=== PATIENT | female | born 1965 | race Caucasian/White ===

== ENCOUNTER 2016-09-07 13:44 | Inpatient (IN) | payer MEDICARE, OTHER ==
[~2016-09-07] VITALS: Ht 142.2 cm; Wt 66.3 kg
[~2016-09-07 13:44] MED LIST: ALBU.5I NEB; ALLO300T2 PO; B-CO1CAP9 PO; BENZ2TAB PO; ESCI20TA PO; FERR1TAB16; GABA100C4 PO; GEOD80CA PO; HYDR-755 PO; LEXA10TA PO; LORA-474 PO; PLAV75TA29 PO; PRIL20CA9 PO; REGL5TAB PO; SENS60TA PO; SYMB160A INH; TRAZ100T4 PO
[2016-09-07 13:45] VITALS: BP 181/70; PULSE 74; RESP 17; TEMP 97.7; O2SAT 95
[2016-09-07 15:00] VITALS: BP 152/79; PULSE 68
--- NOTE | 2016-09-07 15:39 | PD ---
HPI Chief Complaint: General Weakness Time Seen by Provider: 15:39 Travel History International Travel<30 days: No Contact w/Intl Traveler<30days: No Traveled to known affect area: No History of Present Illness HPI 50 year old female with PMH of ESRD on dialysis M W F presents to the ED for evaluation of weakness and falls. The patient states that she has been feeling tired and weak for a few weeks. She also complains of recent falls. She states that she "loses balance" and falls very frequently. She states that she lost her balance today while going to dialysis, landed on her hands and knees. She denies headache, dizziness, fevers, chills chest pain, palpitations abdominal pain, nausea, vomiting , changes in bowel habits, melena, hematochezia, numbness, tingling, weakness, limitations to range of motion of the extremities. Last dialysis was 09/02. She is followed by Dr. Vinson, in [facility]. [facility] Past Medical History Bipolar Disorder: Yes (A/V HALLUCINATION) Anxiety: Yes Depression: Yes Cancer: No Cardiovascular Problems: Yes (heart murmor) COPD: Yes Dialysis: Yes (WEDNESDAYS AND FRIDAYS) Diminished Hearing: No Endocrine: No Immune Disorder: No Kidney Stones: No Musculoskeletal: No Neurologic: No Psychiatric: Yes Reproductive: No Respiratory: Yes (emphysema) Renal Failure: Yes (IS ON DIALYSIS) Menopausal: No : 4 Para: 3 : 1 Past Surgical History Body Medical Devices: A/V SHUNT- LEFT CHEST Section: Yes Gynecologic Surgery: Yes ( X 3 ) Other Surgery: Yes (cyst ovary drained/ AV- SHUNT- LEFT CHEST-) Social History Alcohol Use: No Tobacco Use: Yes Substance Use: Yes (Past hx of crack and marijuana abuse) Allergies-Medications (Allergen,Severity, Reaction): Coded Allergies: No Known Allergies (Unverified , 06/10/16) Reported Meds & Prescriptions Reported Meds & Active Scripts Active Gabapentin 100 Mg Cap 100 Mg PO BID 10 Days Geodon (Ziprasidone) 80 Mg Cap 80 Mg PO BIDPC 10 Days Escitalopram (Escitalopram Oxalate) 20 Mg Tab 20 Mg PO DAILY 10 Days Benztropine (Benztropine Mesylate) 2 Mg Tab 2 Mg PO Q12HR 10 Days Reported Trazodone (Trazodone HCl) 100 Mg Tab 100 Mg PO HS Symbicort Inh (Budesonide/Formoterol Fumarate) 160-4.5 Mcg/Act Aero 2 Puff INH Q12HR Sensipar (Cinacalcet) 60 Mg Tab 60 Mg PO DAILY Reglan (Metoclopramide HCl) 5 Mg Tab 5 Mg PO TIDAC Prilosec (Omeprazole) 20 Mg Cap 20 Mg PO DAILY Plavix (Clopidogrel Bisulfate) 75 Mg Tab 75 Mg PO DAILY Nephrocaps (B-Complex W/ C & Folic Acid) 1 Cap 1 Cap PO DAILY If on dialysis, take after treatment. Lexapro (Escitalopram Oxalate) 10 Mg Tab 10 Mg PO DAILY Geodon (Ziprasidone) 80 Mg Cap 80 Mg PO BID Benztropine (Benztropine Mesylate) 2 Mg Tab 2 Mg PO BID Auryxia (Ferric Citrate) 210 Mg Tab Ativan (Lorazepam) 1 Mg Tab 1 Mg PO Q4H PRN Hydroxyzine HCl 10 Mg Tab 10 Mg PO BID Allopurinol 300 Mg Tab 300 Mg PO DAILY Albuterol Neb (Albuterol Sulfate) 2.5 Mg/0.5 Ml Neb 2.5 Mg NEB QID NEB Note: The Albuterol Sulfate Inhalation Solution is concentrated and must be diluted. Read complete instructions carefully before using. Review of Systems Except as stated in HPI: all other systems reviewed are Neg Physical Exam Narrative GENERAL: Well-nourished, well-developed obese, chronically ill-appearing white female in no acute distress. SKIN: Warm and dry. There is a large ecchymosis over the right shoulder blade, abrasions of bilateral knees and left great toe. HEAD: Normocephalic. EYES: No scleral icterus. No injection or drainage. NECK: Supple, trachea midline. No JVD or lymphadenopathy. CARDIOVASCULAR: Regular rate and rhythm, loud, blowing murmur heard best over the left lower sternal border. RESPIRATORY: Breath sounds clear and equal bilaterally. No accessory muscle use. GASTROINTESTINAL: Abdomen protuberant, soft, nontender. Active bowel sounds. MUSCULOSKELETAL: No cyanosis, or edema. Patient retains full, active, painless ROM of bilateral upper and lower extremities. BACK: Nontender without obvious deformity. No CVA tenderness. Data Data Last Documented VS Vital Signs Date Time Temp Pulse Resp B/P Pulse Ox O2 Delivery O2 Flow Rate FiO2 09/07/16 18:05 69 18 151/96 96 Room Air 09/07/16 13:45 97.7 Orders Complete Blood Count With Diff (09/07/16 15:39) Comprehensive Metabolic Panel (09/07/16 15:39) Prothrombin Time / Inr (Pt) (09/07/16 15:39) Act Partial Throm Time (Ptt) (09/07/16 15:39) Urinalysis - C+S If Indicated (09/07/16 15:39) Blood Glucose (09/07/16 15:39) Ecg Monitoring (09/07/16 15:39) Iv Access Insert/Monitor (09/07/16 15:39) Oximetry (09/07/16 15:39) Sodium Chloride 0.9% Flush (Ns Flush) (09/07/16 15:45) Electrocardiogram (09/07/16 16:05) Ckmb (Isoenzyme) Profile (09/07/16 16:05) Troponin I (09/07/16 16:05) Chest, Single Ap (09/07/16 16:05) Place In Observation (09/07/16 ) Diet Renal (09/07/16 Dinner) Admit Order (Ed Use Only) (09/07/16 18:07) Activity Oob Ad Tabatha (09/07/16 18:07) Vital Signs (Adult) MOOK.Q4H (09/07/16 18:07) Labs Laboratory Tests Test 09/07/16 16:05 White Blood Count 5.9 TH/MM3 Red Blood Count 4.45 MIL/MM3 Hemoglobin 12.7 GM/DL Hematocrit 38.7 % Mean Corpuscular Volume 87.1 FL Mean Corpuscular Hemoglobin 28.6 PG Mean Corpuscular Hemoglobin 32.9 % Concent Red Cell Distribution Width 16.8 % Platelet Count 153 TH/MM3 Mean Platelet Volume 8.5 FL Neutrophils (%) (Auto) 77.4 % Lymphocytes (%) (Auto) 14.1 % Monocytes (%) (Auto) 7.1 % Eosinophils (%) (Auto) 0.9 % Basophils (%) (Auto) 0.5 % Neutrophils # (Auto) 4.5 TH/MM3 Lymphocytes # (Auto) 0.8 TH/MM3 Monocytes # (Auto) 0.4 TH/MM3 Eosinophils # (Auto) 0.1 TH/MM3 Basophils # (Auto) 0.0 TH/MM3 CBC Comment DIFF FINAL Differential Comment Prothrombin Time 11.4 SEC Prothromb Time International 1.0 RATIO Ratio Activated Partial 25.7 SEC Thromboplast Time Sodium Level 127 MEQ/L Potassium Level 4.8 MEQ/L Chloride Level 88 MEQ/L Carbon Dioxide Level 26.2 MEQ/L Anion Gap 13 MEQ/L Blood Urea Nitrogen 33 MG/DL Creatinine 7.04 MG/DL Estimat Glomerular Filtration 6 ML/MIN Rate Random Glucose 86 MG/DL Calcium Level 10.0 MG/DL Total Bilirubin 0.6 MG/DL Aspartate Amino Transf 23 U/L (AST/SGOT) Alanine Aminotransferase 11 U/L (ALT/SGPT) Alkaline Phosphatase 126 U/L Total Creatine Kinase 57 U/L Troponin I LESS THAN 0.02 NG/ML Total Protein 6.8 GM/DL Albumin 3.3 GM/DL [facility] Medical Decision Making Medical Screen Exam Complete: Yes Emergency Medical Condition: Yes Differential Diagnosis Uremia versus electrolyte abnormality versus deconditioning versus anemia versus ACS versus other Narrative Course 50 year old female with PMH of ESRD on dialysis M W F presents to the ED for evaluation of weakness and falls. The patient states that she has been feeling tired and weak for a few weeks. She also complains of recent falls. She states that she "loses balance" and falls very frequently. She states that she lost her balance today while going to dialysis, landed on her hands and knees. She denies headache, dizziness, fevers, chills chest pain, palpitations abdominal pain, nausea, vomiting , changes in bowel habits, melena, hematochezia, numbness, tingling, weakness, limitations to range of motion of the extremities. Last dialysis was 09/02. She is followed by Dr. Vinson, in [place]. Vitals reviewed. Physical exam reveals a chronically ill-appearing white female in no acute distress. There is large ecchymosis of the right shoulder blade, abrasions of bilateral knees and left great toe. The toenails are exceptionally long. There is a harsh, blowing murmur heard best over the left lower sternal border. The breath sounds are clear and equal bilaterally. The abdomen is soft and protuberant. The patient retains full, active, painless SARAH bilateral upper and lower extremities. Remaining physical exam is unremarkable. CBC: Unremarkable CMP: Sodium 127, chloride 88. BUN 33, creatinine 7.04. INR: 1.0 Cardiac enzymes: Negative. Chest x-ray: Compensated cardiomegaly, minimal blunting of the right and left costophrenic angles. I spoke with Dr. Vinson regarding rescheduling this patient's dialysis. Unfortunately, the dialysis center in [facility] is only open Wednesday, Wednesday , Wednesday. This patient is now gone 5 days without dialysis and it would be an additional 2 if she were discharged. requests that we admit the patient for uremia and consult nephrology for inpatient dialysis treatment. I'll also order a physical therapy evaluation for the patient's chronic falls. I spoke with Dr. Rasheed who agrees to accept this patient to the medical service. Please see medicine and nephrology notes for disposition. Diagnosis Primary Impression: Uremia Additional Impression: Fall Qualified Code: W19.XXXA - Fall, initial encounter Madison Saldana Sep 07, 2016 15:39
[2016-09-07] MEDS ORDERED: SODIUM CHLORIDE 0.9% FLUSH 5 ML FLUSH IVF PRN (15:45)
[2016-09-07 16:20] LABS: AUTOMATED NEUTROPHIL # 4.5 TH/MM3 (1.8-7.7); BASOPHIL % 0.5 % (0.0-2.0); EOSINOPHIL # 0.1 TH/MM3 (0-0.4); EOSINOPHIL % 0.9 % (0.0-4.0); HEMATOCRIT 38.7 % (35.0-46.0); HEMO FLAGS DIFF FINAL; LYMPH % 14.1 % (9.0-44.0); LYMPHOCYTE # 0.8 TH/MM3 (1.0-4.8); MEAN CELL VOLUME 87.1 FL (80.0-100.0); MEAN CORPUSCULAR HEMOGLOBIN 28.6 PG (27.0-34.0); MEAN CORPUSCULAR HGB CONC 32.9 % (32.0-36.0); MONO % 7.1 % (0.0-8.0); NEUT % 77.4 % (16.0-70.0); PLATELET COUNT 153 TH/MM3 (150-450); RED BLOOD COUNT 4.45 MIL/MM3 (4.00-5.30); RED CELL DISTRIBUTION WIDTH 16.8 % (11.6-17.2); WHITE BLOOD COUNT 5.9 TH/MM3 (4.0-11.0)
[2016-09-07 16:31] LABS: APTT (PATIENT) 25.7 SEC (24.3-30.1); PROTHROMBIN TIME - PATIENT 11.4 SEC (9.8-11.6)
--- NOTE | 2016-09-07 16:39 | RADRPT ---
EXAM DATE/TIME: 09/07/2016 16:16 [place] COMPARISON: CHEST SINGLE AP, June 12, 2016, 8:02. INDICATIONS : Cough. Short of breath. MEDICAL HISTORY : None. SURGICAL HISTORY : Cardiac cath. ENCOUNTER: Subsequent ACUITY: 3 days PAIN SCORE: 0/10 LOCATION: Bilateral chest FINDINGS: The heart is enlarged. Pulmonary vascularity is normal. There is minimal blunting of right and left costophrenic sulci similar to what was seen on 06/30/2016. There is no pneumothorax. CONCLUSION: 1. Compensated cardiomegaly. 2. Minimal blunting of right and left costophrenic sulci. Clinton Parmar MD FACR on September 07, 2016 at 16:19 Board Certified Radiologist. This report was verified electronically.
[2016-09-07 16:45] LABS: ALKALINE PHOSPHATASE 126 U/L (45-117); TOTAL BILIRUBIN ADULT 0.6 MG/DL (0.2-1.0)
[2016-09-07 16:46] LABS: ALT (GPT) 11 U/L (10-53); ANION GAP 13 MEQ/L (5-15); AST (GOT) 23 U/L (15-37); BICARBONATE 26.2 MEQ/L (21.0-32.0); BLOOD UREA NITROGEN 33 MG/DL (7-18); CHLORIDE 88 MEQ/L (98-107); CREATINE KINASE 57 U/L (26-192); GLOMERULAR FILTRATION RATE 6 ML/MIN (>89); POTASSIUM 4.8 MEQ/L (3.5-5.1); SODIUM (NA) 127 MEQ/L (136-145)
[2016-09-07 17:01] VITALS: BP 167/97; PULSE 69; RESP 18
[2016-09-07 18:05] VITALS: BP 151/96; PULSE 69; RESP 18; O2SAT 96
[2016-09-07 18:39] LABS: BACTERIA, URINE RARE /hpf; BLOOD, URINE NEG (NEG); GLUCOSE,URINE TRACE mg/dL (NEG); KETONE, URINE NEG (NEG); NITRITE,URINE NEG (NEG); PH, URINE 7.5 (5.0-8.5); SQUAMOUS EPITHELIAL CELL URINE 2 /hpf (0-5); URINE COLOR LIGHT-YELLOW (YELLW/STRAW)
[2016-09-07 18:40] LABS: COMMENT (UR) CATH-CULTURE IND; CULTURE IF INDICATED CATH CULTURE IND
[2016-09-07 20:02] VITALS: BP 189/64; PULSE 69; RESP 16; TEMP 97.9; O2SAT 89
[2016-09-07] MEDS ORDERED: SENNOSIDES 8.6 MG TAB PO PRN (20:30)
[2016-09-07] MEDS ORDERED: ONDANSETRON HCL 4 MG/2 ML VIAL IVP PRN (20:30)
[2016-09-07] MEDS ORDERED: BISACODYL 10 MG SUPP PR PRN (20:30)
[2016-09-07] MEDS ORDERED: MORPHINE SULFATE 4 MG/ML INJ IV PRN (20:30)
[2016-09-07] MEDS ORDERED: ACETAMINOPHEN 325 MG TAB PO PRN ×2 (20:30)
[2016-09-07] MEDS ORDERED: NALOXONE HCL 0.4 MG/ML AMP IV PRN (20:30)
[2016-09-07] MEDS ORDERED: traZODone HCL 100 MG TAB PO SCH (21:00)
[2016-09-07] MEDS: BUDESONIDE-FORMOTEROL 160/4.5 MCG INHALER INH SCH (21:20)
[2016-09-07] MEDS: hydrOXYzine HCL 10 MG TAB PO SCH (21:21)
[2016-09-07] MEDS: ZIPRASIDONE HCL 80 MG CAP PO SCH (21:21)
[2016-09-07] MEDS: DOCUSATE SODIUM 100 MG CAP PO SCH (21:21)
[2016-09-07] MEDS: BENZTROPINE MESYLATE 2 MG TAB PO SCH (21:21)
[2016-09-07] MEDS: ACETAMINOPHEN/HYDROcodone 325 MG/7.5 MG TAB PO PRN (21:22)
--- NOTE | 2016-09-07 22:23 | HHI.HP ---
[facility] Service [facility] Primary Care Physician Non-Staff Admission Diagnosis uremia Diagnoses: Chief Complaint: weakness, shaking Travel History International Travel<30 Days: No Contact w/Intl Traveler <30 Da: No Traveled to Known Affected Are: No History of Present Illness 50 y/o female with a history of ESRD on hemodialysis,emphysema, Bipolar, and COPD who is having lethargy but is able to answer questions presented to the ED with complaints of weakness, and a fall after having hand tremors. Patient states her hand were shaking for about a min and she lost her balance and fell. She states for the past year she has been falling and having balance issues. She denies any LOC or trauma to her head. She does get dialysis MWF, but states she missed it on Wednesday because she did not have transportation. She denies any fever, chills, chest pain or sob. Patient does have a congested cough that she says has been the same for the last 6 months. Chest xray was unremarkable. 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 Vinson requested admission to medical service for uremia Review of Systems Constitutional: DENIES: Fever, Chills Respiratory: COMPLAINS OF: Cough, DENIES: Sputum production, Shortness of breath Cardiovascular: DENIES: Chest pain, Palpitations Gastrointestinal: DENIES: Constipation, Diarrhea, Nausea, Vomiting Genitourinary: DENIES: Hematuria Musculoskeletal: DENIES: Back pain, Neck pain Integumentary: DENIES: Rash Hematologic/lymphatic: DENIES: Lymphadenopathy Immunologic/allergic: DENIES: Urticaria Neurologic: COMPLAINS OF: Localized weakness, Tremor, Poor Balance, DENIES: Headache Past Family Social History Past Medical History Heart murmer ESRD Bipolar Past Surgical History AV fistula left chest Ovarian cyst drained x3 stent to R groin area Reported Medications Reported Meds & Active Scripts Active Gabapentin 100 Mg Cap 100 Mg PO BID 10 Days Geodon (Ziprasidone) 80 Mg Cap 80 Mg PO BIDPC 10 Days Escitalopram (Escitalopram Oxalate) 20 Mg Tab 20 Mg PO DAILY 10 Days Benztropine (Benztropine Mesylate) 2 Mg Tab 2 Mg PO Q12HR 10 Days Reported Trazodone (Trazodone HCl) 100 Mg Tab 100 Mg PO HS Symbicort Inh (Budesonide/Formoterol Fumarate) 160-4.5 Mcg/Act Aero 2 Puff INH Q12HR Sensipar (Cinacalcet) 60 Mg Tab 60 Mg PO DAILY Reglan (Metoclopramide HCl) 5 Mg Tab 5 Mg PO TIDAC Prilosec (Omeprazole) 20 Mg Cap 20 Mg PO DAILY Plavix (Clopidogrel Bisulfate) 75 Mg Tab 75 Mg PO DAILY Nephrocaps (B-Complex W/ C & Folic Acid) 1 Cap 1 Cap PO DAILY If on dialysis, take after treatment. Lexapro (Escitalopram Oxalate) 10 Mg Tab 10 Mg PO DAILY Geodon (Ziprasidone) 80 Mg Cap 80 Mg PO BID Benztropine (Benztropine Mesylate) 2 Mg Tab 2 Mg PO BID Auryxia (Ferric Citrate) 210 Mg Tab Ativan (Lorazepam) 1 Mg Tab 1 Mg PO Q4H PRN Hydroxyzine HCl 10 Mg Tab 10 Mg PO BID Allopurinol 300 Mg Tab 300 Mg PO DAILY Albuterol Neb (Albuterol Sulfate) 2.5 Mg/0.5 Ml Neb 2.5 Mg NEB QID NEB Note: The Albuterol Sulfate Inhalation Solution is concentrated and must be diluted. Read complete instructions carefully before using. Allergies: Coded Allergies: No Known Allergies (Unverified , 06/10/16) Active Ordered Medications Current Medications Medications (Trade) Dose Ordered Sig/Lora Route Start Time Stop Time Status Last Admin (NS Flush) 2 ml UNSCH PRN IVF 09/07/16 15:45 (Tylenol) 650 mg Q4H PRN PO 09/07/16 20:30 (Zofran Inj) 4 mg Q6H PRN IVP 09/07/16 20:30 (Dulcolax Supp) 10 mg DAILY PRN SD 09/07/16 20:30 (Colace) 100 mg Q12H PO 09/07/16 21:00 09/07/16 21:21 (Senokot) 17.2 mg Q12H PRN PO 09/07/16 20:30 (Tylenol) 650 mg Q6H PRN PO 09/07/16 20:30 (Clinton 5-325 Mg) 1 tab Q4H PRN PO 09/07/16 20:30 (Clinton 7.5-325 Mg) 1 tab Q4H PRN PO 09/07/16 20:30 09/07/16 21:22 (Morphine Inj) 1 mg Q3H PRN IV 09/07/16 20:30 (Narcan Inj) 0.4 mg UNSCH PRN IV 09/07/16 20:30 (Nephrocaps) 1 cap DAILY PO 09/08/16 09:00 (Cogentin) 2 mg Q12HR PO 09/07/16 21:00 09/07/16 21:21 (Symbicort 160-4.5 Inh) 2 puff Q12HR INH 09/07/16 21:00 09/07/16 21:20 (Sensipar) 60 mg DAILY PO 09/08/16 09:00 (Plavix) 75 mg DAILY PO 09/08/16 09:00 (Lexapro) 10 mg DAILY PO 09/08/16 09:00 (Neurontin) 100 mg DAILY PO 09/08/16 09:00 (Atarax) 10 mg BID PO 09/07/16 21:00 09/07/16 21:21 (Ativan) 1 mg Q4H PRN PO 09/07/16 20:30 (Reglan) 5 mg TIDAC PO 09/08/16 08:00 (Protonix) 20 mg DAILY PO 09/08/16 09:00 (Desyrel) 100 mg HS PO 09/07/16 21:00 09/07/16 21:21 (Geodon) 80 mg BID PO 09/07/16 21:00 09/07/16 21:21 (Zyloprim) 100 mg DAILY PO 09/08/16 09:00 (Apresoline Inj) 10 mg Q6H PRN IV 09/07/16 22:30 (Catapres) 0.1 mg Q6H PRN PO 09/07/16 22:30 Family History Mother of old age Father is alive and has emphysema Social History Tobacco use: 1/2 ppd Alcohol use: denies Illcit drug use: quit 6 years ago Physical Exam Vital Signs Vital Signs Date Time Temp Pulse Resp B/P Pulse Ox O2 Delivery O2 Flow Rate FiO2 09/07/16 20:02 97.9 69 16 189/64 89 09/07/16 18:05 69 18 151/96 96 Room Air 09/07/16 17:01 69 18 167/97 09/07/16 15:00 68 152/79 09/07/16 14:00 Room Air 09/07/16 13:45 97.7 74 17 181/70 95 Physical Exam GENERAL: This is a well-nourished, well-developed patient, in no apparent distress. SKIN: No rashes, ecchymoses or lesions. Cool and dry. Abrasion to right knee, left great toe swollen with dried blood from trauma. HEAD: Atraumatic. Normocephalic. No temporal or scalp tenderness. EYES: Pupils equal round and reactive. Extraocular motions intact. No scleral icterus. No injection or drainage. ENT: Nose without bleeding, purulent drainage or septal hematoma. Throat without erythema, tonsillar hypertrophy or exudate. Uvula midline. Airway patent. NECK: Trachea midline. No JVD or lymphadenopathy. Supple, nontender, no meningeal signs. CARDIOVASCULAR: Regular rate and rhythm with a systolic murmer best heard at the LUSB murmurs, gallops, or rubs. AV shunt to left chest. +thrill RESPIRATORY: Clear to auscultation. Breath sounds equal bilaterally. No wheezes , rales, or rhonchi. GASTROINTESTINAL: Abdomen soft, non-tender, nondistended. No guarding. MUSCULOSKELETAL: Extremities without clubbing, cyanosis, or edema. No joint tenderness, effusion, or edema noted. No calf tenderness. Negative Homans sign bilaterally. NEUROLOGICAL: Lethargic but easily arousable answering questions appropriately. Motor and sensory grossly within normal limits. Normal speech. Laboratory Laboratory Tests Test 09/07/16 09/07/16 16:05 18:23 White Blood Count 5.9 Red Blood Count 4.45 Hemoglobin 12.7 Hematocrit 38.7 Mean Corpuscular Volume 87.1 Mean Corpuscular Hemoglobin 28.6 Mean Corpuscular Hemoglobin 32.9 Concent Red Cell Distribution Width 16.8 Platelet Count 153 Mean Platelet Volume 8.5 Neutrophils (%) (Auto) 77.4 Lymphocytes (%) (Auto) 14.1 Monocytes (%) (Auto) 7.1 Eosinophils (%) (Auto) 0.9 Basophils (%) (Auto) 0.5 Neutrophils # (Auto) 4.5 Lymphocytes # (Auto) 0.8 Monocytes # (Auto) 0.4 Eosinophils # (Auto) 0.1 Basophils # (Auto) 0.0 CBC Comment DIFF FINAL Differential Comment Prothrombin Time 11.4 Prothromb Time International 1.0 Ratio Activated Partial 25.7 Thromboplast Time Sodium Level 127 Potassium Level 4.8 Chloride Level 88 Carbon Dioxide Level 26.2 Anion Gap 13 Blood Urea Nitrogen 33 Creatinine 7.04 Estimat Glomerular Filtration 6 Rate Random Glucose 86 Calcium Level 10.0 Total Bilirubin 0.6 Aspartate Amino Transf 23 (AST/SGOT) Alanine Aminotransferase 11 (ALT/SGPT) Alkaline Phosphatase 126 Total Creatine Kinase 57 Troponin I LESS THAN 0.02 Total Protein 6.8 Albumin 3.3 Urine Color LIGHT-YELLOW Urine Turbidity CLEAR Urine pH 7.5 Urine Specific [place] 1.005 Urine Protein 300 Urine Glucose (UA) TRACE Urine Ketones NEG Urine Occult Blood NEG Urine Nitrite NEG Urine Bilirubin NEG Urine Urobilinogen LESS THAN 2.0 Urine Leukocyte Esterase NEG Urine WBC LESS THAN 1 Urine Squamous Epithelial 2 Cells Urine Bacteria RARE Microscopic Urinalysis Comment CATH-CULTURE IND Date/Time Procedure Status Source Growth 09/07/16 18:23 Urine Culture Received Urine Catheterized Urine Pending Result Diagram: 09/07/16 1605 09/07/16 1605 Imaging Chest x-ray image interpreted by me with no acute cardio pulmonary disease Last Impressions Chest X-Ray 09/07/16 1605 Signed Impressions: Service Date/Time: Wednesday, September 07, 2016 16:16 - CONCLUSION: 1. Compensated cardiomegaly. 2. Minimal blunting of right and left costophrenic sulci. Clinton Parmar MD FACR Assessment and Plan Problem List: (1) ESRD (end stage renal disease) ICD Code: N18.6 Status: Chronic (2) Uremia ICD Code: N19 Status: Acute (3) Tremor of both hands ICD Code: R25.1 Status: Acute (4) Cough ICD Code: R05 Status: Acute (5) Bipolar 1 disorder, depressed ICD Code: F31.9 Status: Chronic Assessment and Plan 50 y/o female with a history of ESRD, Bipolar, and COPD presented with: Uremia/ESRD secondary to missed hemodialysis Labs: Protein on UA 300, Creatine 7.04 -Urine culture pending -Consult Nephrology -Renal diet -Counseled Tremors likely secondary to uremia -Head CT ordered, will consult neurology if needed -EKG ordered -TSH ordered -PT eval and treat -IV morphine for pain management -Monitor tele Cough/COPD -Duonebs QID Bipolar, chronic: continue home medications PVD, Chronic: cont Plavix DVT prophylaxis: Heparin Written by Gerri DOWNS, acting as scribe for Dr. Chao on 09/07/16 at 2215. The documentation accurately reflects the work performed [id number] and decisions made by me and the physician Dr Chao on 2214. The documentation accurately reflects the work performed [id number] by me on at 00:28. Code Status Full Discussed Condition With Patient and RN Gerri Coley Sep 07, 2016 22:22 Cuong Chao MD Sep 08, 2016 00:28
[2016-09-07] MEDS ORDERED: cloNIDine HCL 0.1 MG TAB PO PRN (22:30)
[2016-09-07 23:01] VITALS: PULSE 69
[2016-09-07] MEDS: HEPARIN SODIUM - SQ 10,000 UNITS/ML VIAL SQ SCH (23:30)
[2016-09-08] VITALS (11 sets, daily range): BP systolic 139–177; BP diastolic 55–84; PULSE 66–87; RESP 16–24; TEMP 97.7–98.9; O2SAT 94–100
[2016-09-08] MEDS: RESP: ALBUTEROL 2.5 MG/3 ML NEB (SCH) INH ×4 (07:30→19:36)
[2016-09-08] MEDS: METOCLOPRAMIDE HCL 10 MG TAB PO SCH ×3 (08:00→13:40)
--- NOTE | 2016-09-08 08:04 | HHI.PR ---
Subjective Remarks Follow-up for weakness. The patient states that she's been having falls and weakness. She does not use any cane or walker at home. She states she does have help at home. She has COPD on home oxygen. Chronic smoker's cough, still smoking. Objective Vitals Vital Signs Date Time Temp Pulse Resp B/P Pulse Ox O2 Delivery O2 Flow Rate FiO2 09/08/16 07:33 98 Nasal Cannula 4.00 09/08/16 03:54 98.9 87 18 139/59 95 09/08/16 00:00 98.1 87 18 167/84 98 09/07/16 23:01 69 09/07/16 22:34 16 09/07/16 20:02 97.9 69 16 189/64 89 09/07/16 18:05 69 18 151/96 96 Room Air 09/07/16 17:01 69 18 167/97 09/07/16 15:00 68 152/79 09/07/16 14:00 Room Air 09/07/16 13:45 97.7 74 17 181/70 95 Result Diagram: 09/07/16 1605 09/07/16 1605 Imaging Last Impressions Chest X-Ray 09/07/16 1605 Signed Impressions: Service Date/Time: Wednesday, September 07, 2016 16:16 - CONCLUSION: 1. Compensated cardiomegaly. 2. Minimal blunting of right and left costophrenic sulci. Clinton Parmar MD FACR Objective Remarks GENERAL: Well-developed well-nourished. In no acute distress. SKIN: Warm and dry. Left chest AVF. HEENT: Normocephalic. Pupils equal and round. Mucous membranes pink and moist. CARDIOVASCULAR: Regular rate and rhythm. Left chest murmur/bruit appreciated. RESPIRATORY: No accessory muscle use. Clear to auscultation. Breath sounds equal bilaterally. GASTROINTESTINAL: Abdomen soft, non-tender, nondistended. Bowel sounds x4. MUSCULOSKELETAL: No obvious deformities. No clubbing or cyanosis. Trace lower extremity edema. NEUROLOGICAL: Awake and alert. No focal neurological deficits. Moves upper and lower extremities spontaneously. Hoarse speech. PSYCHIATRIC: Appropriate mood and affect; insight and judgment normal. A/P Problem List: (1) ESRD (end stage renal disease) ICD Code: N18.6 Status: Chronic (2) Uremia ICD Code: N19 Status: Acute (3) Tremor of both hands ICD Code: R25.1 Status: Acute (4) Cough ICD Code: R05 Status: Chronic (5) Bipolar 1 disorder, depressed ICD Code: F31.9 Status: Chronic Assessment and Plan 50 y/o female with a history of ESRD, Bipolar, and COPD presented with: Uremia/ESRD secondary to missed hemodialysis Labs: Protein on UA 300, Creatine 7.04 -Consulted Nephrology to resume HD -Renal diet -Continue home phosphate binders Weakness, falls Tremors, mild, possible secondary to uremia -Head CT ordered, will consult neurology if needed -EKG ordered -TSH mildly elevated, outpatient thyroid function testing and PCP follow-up -PT eval and treat -Monitor tele -fall precaution Chronic respiratory failure on home O2 from emphysema/COPD: With chronic cough, unchanged. Chest x-ray shows compensated cardiomegaly with minimal blunting of left and right costophrenic sulci - likely mild volume overload from missed dialysis as above -02 and Duonebs QID -Continue home Symbicort -Counseled on tobacco abuse and cessation Accelerated hypertension: On no BP meds at home. Better controlled overnight. Worsened by missed dialysis. And hydralazine as needed. Bipolar, chronic: continue home trazodone, Geodon, hydroxyzine, Ativan when necessary, Lexapro PVD, Chronic: cont Plavix DVT prophylaxis: Heparin Addendum 1330: Patient was noted to be somnolent after receiving Geodon, [place], and Atarax this morning. Vitals stable. Hold sedating medications. Confirm home medications. Check ammonia and repeat labs. Discharge Planning Needs inpatient dialysis today. Follow-up PT recommendations. Attending Statement The exam, history, and the medical decision-making described in the above note were completed with the assistance of the mid-level provider. I reviewed and agree with the findings presented. I attest that I had a [id number] encounter with the patient on the same day, and personally performed and documented my assessment and findings in the medical record. Jayson Salazar Sep 08, 2016 08:04 Kayden Lamas MD Sep 14, 2016 00:27
[2016-09-08] MEDS ORDERED: CLOPIDOGREL 75 MG TAB PO SCH (09:00)
[2016-09-08] MEDS ORDERED: ALLOPURINOL 300 MG TAB PO SCH (09:00)
[2016-09-08] MEDS: hydrOXYzine HCL 10 MG TAB PO SCH (09:56)
[2016-09-08] MEDS: CINACALCET HYDROCHLORIDE 30 MG TAB PO SCH (09:56)
[2016-09-08] MEDS: ALLOPURINOL 100 MG TAB PO SCH (09:57)
[2016-09-08] MEDS: BENZTROPINE MESYLATE 2 MG TAB PO SCH (09:57)
[2016-09-08] MEDS: GABAPENTIN 100 MG CAP PO SCH (09:57)
[2016-09-08] MEDS: ESCITALOPRAM OXALATE 10 MG TAB PO SCH (09:57)
[2016-09-08] MEDS: DOCUSATE SODIUM 100 MG CAP PO SCH ×2 (09:57→21:00)
[2016-09-08] MEDS: BUDESONIDE-FORMOTEROL 160/4.5 MCG INHALER INH SCH (09:57)
[2016-09-08] MEDS: HEPARIN SODIUM - SQ 10,000 UNITS/ML VIAL SQ SCH (09:57)
[2016-09-08] MEDS ORDERED: SODIUM CHLOR 0.9% 1000 ML INJ 1,000 ML IV PRN (10:06)
[2016-09-08] MEDS: ZIPRASIDONE HCL 80 MG CAP PO SCH (10:07)
[2016-09-08] MEDS: PANTOPRAZOLE SOD 20 MG DELAYED RELEASE TAB PO SCH (10:07)
[2016-09-08] MEDS: VITAMIN B CMPLX/VITC/FOLIC AC CAP PO SCH (10:07)
[2016-09-08] MEDS ORDERED: diphenhydrAMINE HCL 25 MG CAP PO PRN (10:15)
[2016-09-08] MEDS ORDERED: MANNITOL 12.5 GM/50 ML VIAL IV PRN (10:15)
[2016-09-08] MEDS ORDERED: cloNIDine HCL 0.1 MG TAB PO PRN (10:15)
[2016-09-08] MEDS ORDERED: HEPARIN SODIUM - IV 10,000 UNITS/10 ML VIAL PRN (10:15)
[2016-09-08] MEDS ORDERED: ACETAMINOPHEN 325 MG TAB PO PRN (10:15)
[2016-09-08] MEDS ORDERED: NITROGLYCERIN 0.4 MG SL 25 TABS/BTL SL PRN (10:15)
[2016-09-08] MEDS ORDERED: HEPARIN SODIUM - IV 10,000 UNITS/10 ML VIAL IVF PRN ×2 (10:15→17:30)
[2016-09-08] MEDS ORDERED: SODIUM CHLORIDE 0.9% FLUSH 5 ML FLUSH IVF PRN ×2 (10:15→17:30)
[2016-09-08] MEDS ORDERED: GENTAMICIN SULFATE (DIALYSIS USE ONLY) 20 MG/2 ML VIAL IV PRN (10:15)
[2016-09-08] MEDS ORDERED: ONDANSETRON HCL 4 MG/2 ML VIAL IV PRN (10:15)
[2016-09-08] MEDS: ACETAMINOPHEN/HYDROcodone 325 MG/7.5 MG TAB PO PRN (11:15)
--- NOTE | 2016-09-08 11:57 | PD.CONS ---
HPI Service Nephrology Consult Requested By Reason for Consult ESRD on HD Primary Care Physician Non-Staff History of Present Illness This is a 51 y/o female pt who has ESRD, follows with Dr. Vinson in [facility], but reportedly has not had dialysis since last wednesday. She is lethargic today and is difficult to obtain information from. On exam it seems her AVF in left arm is not functioning. She cannot give details. Most of the hx is obtained from the medical record. K level is in normal range. She is a full code this admission. (Alexia Curtis) Review of Systems ROS Limitations: Intoxication, Altered Mental Status (Alexia Curtis) Past Family Social History Allergies: Coded Allergies: No Known Allergies (Unverified , 06/10/16) Past Medical History ESRD on hemodialysis M-W-F emphysema Bipolar COPD Past Surgical History AV fistula left arm Ovarian cyst drained x3 stent to R groin area Reported Medications Gabapentin 100 Mg Cap 100 Mg PO BID 10 Days Escitalopram (Escitalopram Oxalate) 20 Mg Tab 20 Mg PO DAILY 10 Days Benztropine (Benztropine Mesylate) 2 Mg Tab 2 Mg PO Q12HR 10 Days Trazodone (Trazodone HCl) 100 Mg Tab 100 Mg PO HS Symbicort Inh (Budesonide/Formoterol Fumarate) 160-4.5 Mcg/Act Aero 2 Puff INH Q12HR Sensipar (Cinacalcet) 60 Mg Tab 60 Mg PO DAILY Reglan (Metoclopramide HCl) 5 Mg Tab 5 Mg PO TIDAC Prilosec (Omeprazole) 20 Mg Cap 20 Mg PO DAILY Plavix (Clopidogrel Bisulfate) 75 Mg Tab 75 Mg PO DAILY Nephrocaps (B-Complex W/ C & Folic Acid) 1 Cap 1 Cap PO DAILY If on dialysis, take after treatment. Lexapro (Escitalopram Oxalate) 10 Mg Tab 10 Mg PO DAILY Geodon (Ziprasidone) 80 Mg Cap 80 Mg PO BID Benztropine (Benztropine Mesylate) 2 Mg Tab 2 Mg PO BID Auryxia (Ferric Citrate) 210 Mg Tab Ativan (Lorazepam) 1 Mg Tab 1 Mg PO Q4H PRN Hydroxyzine HCl 10 Mg Tab 10 Mg PO BID Allopurinol 300 Mg Tab 300 Mg PO DAILY Albuterol Neb (Albuterol Sulfate) 2.5 Mg/0.5 Ml Neb 2.5 Mg NEB QID NEB Note: The Albuterol Sulfate Inhalation Solution is concentrated and must be diluted. Read complete instructions carefully before using. Active Ordered Medications Current Medications Medications (Trade) Dose Ordered Sig/Lora Route Start Time Stop Time Status Last Admin (NS Flush) 2 ml UNSCH PRN IVF 09/07/16 15:45 (Tylenol) 650 mg Q4H PRN PO 09/07/16 20:30 (Zofran Inj) 4 mg Q6H PRN IVP 09/07/16 20:30 (Dulcolax Supp) 10 mg DAILY PRN [place] 09/07/16 20:30 (Colace) 100 mg Q12H PO 09/07/16 21:00 09/08/16 09:57 (Senokot) 17.2 mg Q12H PRN PO 09/07/16 20:30 (Tylenol) 650 mg Q6H PRN PO 09/07/16 20:30 ([place] 5-325 Mg) 1 tab Q4H PRN PO 09/07/16 20:30 ([place] 7.5-325 Mg) 1 tab Q4H PRN PO 09/07/16 20:30 09/08/16 11:15 (Morphine Inj) 1 mg Q3H PRN IV 09/07/16 20:30 (Narcan Inj) 0.4 mg UNSCH PRN IV 09/07/16 20:30 (Nephrocaps) 1 cap DAILY PO 09/08/16 09:00 09/08/16 10:07 (Cogentin) 2 mg Q12HR PO 09/07/16 21:00 09/08/16 09:57 (Symbicort 160-4.5 Inh) 2 puff Q12HR INH 09/07/16 21:00 09/08/16 09:57 (Sensipar) 60 mg DAILY PO 09/08/16 09:00 09/08/16 09:56 (Plavix) 75 mg DAILY PO 09/08/16 09:00 09/08/16 09:56 (Lexapro) 10 mg DAILY PO 09/08/16 09:00 09/08/16 09:57 (Neurontin) 100 mg DAILY PO 09/08/16 09:00 09/08/16 09:57 (Atarax) 10 mg BID PO 09/07/16 21:00 09/08/16 09:56 (Ativan) 1 mg Q4H PRN PO 09/07/16 20:30 (Reglan) 5 mg TIDAC PO 09/08/16 08:00 (Protonix) 20 mg DAILY PO 09/08/16 09:00 09/08/16 10:07 (Desyrel) 100 mg HS PO 09/07/16 21:00 09/07/16 21:21 (Geodon) 80 mg BID PO 09/07/16 21:00 09/08/16 10:07 (Zyloprim) 100 mg DAILY PO 09/08/16 09:00 09/08/16 09:57 (Apresoline Inj) 10 mg Q6H PRN IV 09/07/16 22:30 (Catapres) 0.1 mg Q6H PRN PO 09/07/16 22:30 Heparin Sodium (Porcine) 5000 units 5,000 units Q12HR SQ 09/07/16 23:30 09/08/16 09:57 (NS 1000 ml Inj) 1,000 ml @ 0 mls/hr Q0M PRN IV 09/08/16 10:06 Heparin Sodium (Porcine) 8000 units 8,000 units UNSCH PRN IVF 09/08/16 10:15 Sodium Chloride 1,000 ml @ 200 mls/hr Q5H PRN IV 09/08/16 10:06 (NS 1000 ml Inj) 1,000 ml @ 0 mls/hr Q0M PRN IV 09/08/16 10:06 (Mannitol Inj) 12.5 gm UNSCH PRN IV 09/08/16 10:15 (Albumin 25% Inj) 25 gm UNSCH PRN IV 09/08/16 10:15 (NS Flush) 5 ml UNSCH PRN IVF 09/08/16 10:15 (Heparin Inj) UNSCH PRN .XX 09/08/16 10:15 (Gentamicin (Dialysis) Inj) 20 mg UNSCH PRN IV 09/08/16 10:15 (Zofran Inj) 4 mg UNSCH PRN IV 09/08/16 10:15 (Tylenol) 650 mg UNSCH PRN PO 09/08/16 10:15 (Benadryl) 25 mg UNSCH PRN PO 09/08/16 10:15 (Nitrostat Sl) 0.4 mg UNSCH PRN SL 09/08/16 10:15 (Catapres) 0.1 mg UNSCH PRN PO 09/08/16 10:15 (Gelfoam 12 Mm/7 Mm Top) 1 foam UNSCH PRN TOP 09/08/16 10:15 Family History unable to obtain Social History lives in [place] she is daily smoker hx of ETOH, no drug use full code non ambulatory (Alexia Curtis) Physical Exam Vital Signs Vital Signs Date Time Temp Pulse Resp B/P Pulse Ox O2 Delivery O2 Flow Rate FiO2 09/08/16 08:38 98.9 72 18 152/69 95 09/08/16 08:15 98.2 85 24 177/77 94 09/08/16 07:33 98 Nasal Cannula 4.00 09/08/16 03:54 98.9 87 18 139/59 95 09/08/16 00:00 98.1 87 18 167/84 98 09/07/16 23:01 69 09/07/16 22:34 16 09/07/16 20:02 97.9 69 16 189/64 89 09/07/16 18:05 69 18 151/96 96 Room Air 09/07/16 17:01 69 18 167/97 09/07/16 15:00 68 152/79 09/07/16 14:00 Room Air 09/07/16 13:45 97.7 74 17 181/70 95 Physical Exam middle aged female, disheveled, lethargic oriented to self when stimulated shallow respirations, scattered crackles abdomen obese, soft extremities trace edema avf left arm no thrill/bruit Laboratory Laboratory Tests Test 09/07/16 09/07/16 16:05 18:23 White Blood Count 5.9 Red Blood Count 4.45 Hemoglobin 12.7 Hematocrit 38.7 Mean Corpuscular Volume 87.1 Mean Corpuscular Hemoglobin 28.6 Mean Corpuscular Hemoglobin 32.9 Concent Red Cell Distribution Width 16.8 Platelet Count 153 Mean Platelet Volume 8.5 Neutrophils (%) (Auto) 77.4 Lymphocytes (%) (Auto) 14.1 Monocytes (%) (Auto) 7.1 Eosinophils (%) (Auto) 0.9 Basophils (%) (Auto) 0.5 Neutrophils # (Auto) 4.5 Lymphocytes # (Auto) 0.8 Monocytes # (Auto) 0.4 Eosinophils # (Auto) 0.1 Basophils # (Auto) 0.0 CBC Comment DIFF FINAL Differential Comment Prothrombin Time 11.4 Prothromb Time International 1.0 Ratio Activated Partial 25.7 Thromboplast Time Sodium Level 127 Potassium Level 4.8 Chloride Level 88 Carbon Dioxide Level 26.2 Anion Gap 13 Blood Urea Nitrogen 33 Creatinine 7.04 Estimat Glomerular Filtration 6 Rate Random Glucose 86 Calcium Level 10.0 Total Bilirubin 0.6 Aspartate Amino Transf 23 (AST/SGOT) Alanine Aminotransferase 11 (ALT/SGPT) Alkaline Phosphatase 126 Total Creatine Kinase 57 Troponin I LESS THAN 0.02 Total Protein 6.8 Albumin 3.3 Thyroid Stimulating Hormone 6.850 3rd Gen Urine Color LIGHT-YELLOW Urine Turbidity CLEAR Urine pH 7.5 Urine Specific [place] 1.005 Urine Protein 300 Urine Glucose (UA) TRACE Urine Ketones NEG Urine Occult Blood NEG Urine Nitrite NEG Urine Bilirubin NEG Urine Urobilinogen LESS THAN 2.0 Urine Leukocyte Esterase NEG Urine WBC LESS THAN 1 Urine Squamous Epithelial 2 Cells Urine Bacteria RARE Microscopic Urinalysis Comment CATH-CULTURE IND Date/Time Procedure Status Source Growth 09/07/16 18:23 Urine Culture Received Urine Catheterized Urine Pending (Alexia Curtis) Result Diagram: 09/07/16 1605 09/07/16 1605 Assessment and Plan Problem List: (1) ESRD (end stage renal disease) Plan: M-W-F dialysis, her last dialysis was last week I consulted IR for declotting of AVF of left arm , vascath placement if needed K is acceptable at this time recheck electrolytes in am, likely repeat HD tomorrow avoid IVF, gadolinium renal panel in am on Renvela (2) Hypertension Plan: BP acceptable continue oral medications (3) Uremia Plan: dialysis today as above (Alexia Curtis) Assessment and Plan patient was seen and examined. Patient is uremic, she is confused, disoriented. Has some myoclonic jerks. AV graft in the left arm is thrombosed. We consulted IR for declotting. If not successful, she will need a temporary dialysis catheter for dialysis today. Prognosis is guarded at this time. (Omar Momin MD) Alexia Curtis Sep 08, 2016 11:57 Omar Momin MD Sep 08, 2016 16:30
[2016-09-08] MEDS: SEVELAMER CARBONATE 800 MG TAB PO SCH ×2 (13:00→17:00)
--- NOTE | 2016-09-08 13:31 | RADRPT ---
EXAM DATE/TIME: 09/08/2016 12:23 [facility] COMPARISON: No previous studies available for comparison. INDICATIONS : Altered mental status RADIATION DOSE: 37.26 CTDIvol (mGy) MEDICAL HISTORY : Chronic obstructive pulmonary disease. Cardiovascular disease Renal failure, chronic. SURGICAL HISTORY : section. ENCOUNTER: Subsequent ACUITY: 1 day PAIN SCALE: 0/10 LOCATION: cranial TECHNIQUE: Multiple contiguous axial images were obtained of the head. Using automated exposure control and adj ustment of the mA and/or kV according to patient size, radiation dose was kept as low as reasonably a chievable to obtain optimal diagnostic quality images. FINDINGS: CEREBRUM: The ventricles are normal for age. No evidence of midline shift, mass lesion, hemorrhage or acute in farction. Punctate high density along the third ventricle versus less likely hemorrhage. No extra-axi al fluid collections are seen. POSTERIOR FOSSA: The cerebellum and brainstem are intact. The 4th ventricle is midline. The cerebellopontine angle i s unremarkable. EXTRACRANIAL: The visualized portion of the orbits is intact. SKULL: The calvaria is intact. No evidence of skull fracture. CONCLUSION: 1. Punctate high density in the roof of third ventricle may be related to colloid cyst versus less li weston punctate hemorrhage. 2. No acute abnormality. Shilo Sher MD on September 08, 2016 at 13:28 Board Certified Radiologist. This report was verified electronically.
[2016-09-08] MEDS ORDERED: fentaNYL CITRATE 250 MCG/5 ML AMP ONE (15:29)
--- NOTE | 2016-09-08 17:22 | PD.RAD ---
Post Procedure Progress Note Pre Procedure Diagnosis: (1) Chronic kidney disease Post Procedure Diagnosis: (1) Chronic kidney disease Procedure Date: Sep 08, 2016 Supervising Radiologist: Nigel Mcfarland Proceduralist/Assist: Ryan Roblero RT(R), Sintia Kee RT(R) Anesthesia: Conscious Sedation Plan of Activity Patient to Unit: Nursing Unit Patient Condition: Fair See PACS Report for procedural detail/treatment Vascular-Venous Procedure Procedure 1 Procedure Site: Left Arm Procedure(s): AV Graft/Fistula Evaluation (occluded venous outflow) Access Access Site(s): Graft/Fistula Closure Site(s): Left manual pressure Nigel Mcfarland MD Sep 08, 2016 17:22
[2016-09-08] MEDS ORDERED: IOHEXOL 350 MG/ML 50 ML BTL (for RAD DIAG) IV ONE (17:27)
--- NOTE | 2016-09-08 17:37 | RADRPT ---
EXAM DATE/TIME: 09/08/2016 15:46 [facility] COMPARISON: No previous studies available for comparison. INDICATIONS : Patient with a history of clotted fistula for renal disease, needs dialysis. MEDICAL HISTORY : ESRD on hemodialysis Emphysema bipolar COPD SURGICAL HISTORY : AV fistula Ovarian cyst drained x3 stent to right groin ENCOUNTER: Initial ACUITY: >1 year PAIN SCORE: 0/10 FLUORO TIME: 15.7 minutes ACCESS SITE: Left Fistula CONTRAST: 1.) 35 cc Omnipaque (iohexol) 350 MEDICATION(S): 1.) 25 mcg fentanyl (Sublimaze) IV PROCEDURE : 1. Ultrasound guided puncture of the arterial limb of the fistula. 2. Evaluation of dialysis graft. 3.. Conscious sedation with continuous EKG and oximetry monitoring. The risks, benefits and alternatives to the procedure were explained and verbal and written consent w as obtained. The site was prepped in sterile fashion. Full sterile technique was used, including ca p, mask, sterile gloves and gown and a large sterile sheet. Hand hygiene and 2% chlorhexidine and/or betadine/alcohol prep was utilized per protocol for cutaneous antisepsis. The skin and subcutaneous tissues were infiltrated with local anesthetic solution. With ultrasound and fluoroscopic guidance the arterial limb of the fistula was punctured directed tow marycruz the venous anastomosis. Positive contrast was which demonstrated complete occlusion at the level of the venous anastomosis. The venous anastomosis could not be crossed and the procedure was termina wade at this point. The patient tolerated the procedure well and there were no complications. Conscious sedation was per formed with the prescribed dosages and duration as above in the presence of an independent trained ra diology nurse to assist in the monitoring of the patient. EKG and oximetry remained stable throughou t the procedure. CONCLUSION: 1. Complete occlusion of the venous outflow of the dialysis graft. A Vas-Cath is to be placed Nigel Mcfarland MD on September 08, 2016 at 17:34 Board Certified Radiologist. This report was verified electronically.
--- NOTE | 2016-09-08 20:24 | PD.CONS ---
HPI Service Critical Care Medicine Consult Requested By Nephrology Reason for Consult CONSULT PARTS BACK COUNTER MAN FOR RIGHT CHEST VASCATH INFILTRATE AND EVAL Primary Care Physician Non-Staff History of Present Illness 51-year-old female with a history of ESRD on hemodialysis,emphysema, Bipolar, and COPD, history of noncompliance who was having lethargy but was able to answer questions presented to the ED with complaints of weakness, and a fall after having hand tremors. 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 Dialysis catheter was placed by IR Dr. Mcfarland. Critical care medicine was consulted for right chest wall Vas-Cath infiltrate. I have discussed the issue with Dr. Mcfarland, per his statement the procedure was uncomplicated and the tip of catheter was confirmed by IV contrast under fluoroscopy. His recommendations are to observe patient without any further intervention. The patient was on Plavix prior procedure and this could be simple chest wall hematoma. Review of Systems Constitutional: COMPLAINS OF: Diaphoretic episodes, Fatigue, DENIES: Fever, Weight gain, Weight loss, Chills, Dizziness, Change in appetite, Night Sweats Endocrine: DENIES: Abnorml menstrual pattern, Heat/cold intolerance, Polydipsia , Polyuria, Polyphagia Eyes: DENIES: Blurred vision, Diplopia, Eye inflammation, Eye pain, Vision loss , Photosensitivity, Double Vision Ears, nose, mouth, throat: DENIES: Tinnitus, Hearing loss, Vertigo, Nasal discharge, Oral lesions, Throat pain, Hoarseness, Ear Pain, Running Nose, Epistaxis, Sinus Pain, Toothache, Odynophagia Respiratory: DENIES: Apneas, Cough, Snoring, Wheezing, Hemoptysis, Sputum production, Shortness of breath Cardiovascular: DENIES: Chest pain, Palpitations, Syncope, Dyspnea on Exertion , PND, Lower Extremity Edema, Orthopnea, Claudication Gastrointestinal: DENIES: Abdominal pain, Black stools, Bloody stools, Constipation, Diarrhea, Nausea, Vomiting, Difficulty Swallowing, Anorexia Genitourinary: DENIES: Abnormal vaginal bleeding, Dysmenorrhea, Dyspareunia, Sexual dysfunction, Urinary frequency, Urinary incontinence, Urgency, Hematuria , Dysuria, Nocturia, Vaginal discharge Musculoskeletal: DENIES: Joint pain, Muscle aches, Stiffness, Joint Swelling, Back pain, Neck pain Integumentary: DENIES: Abnormal pigmentation, Pruritus, Rash, Nail changes, Breast masses, Breast skin changes, Nipple discharge Hematologic/lymphatic: DENIES: Bruising, Lymphadenopathy Immunologic/allergic: DENIES: Eczema, Urticaria Neurologic: COMPLAINS OF: Abnormal gait, Poor Balance, DENIES: Headache, Localized weakness, Paresthesias, Seizures, Speech Problems, Tremor Psychiatric: DENIES: Anxiety, Confusion, Mood changes, Depression, Hallucinations, Agitation, Suicidal Ideation, Homicidal Ideation, Delusions Past Family Social History Allergies: Coded Allergies: No Known Allergies (Unverified , 06/10/16) Past Medical History Heart murmur ESRD Bipolar disorder COPD Past Surgical History AV fistula left chest Ovarian cyst drained x3 stent to R groin area Reported Medications Reported Meds & Active Scripts Active Gabapentin 100 Mg Cap 100 Mg PO BID 10 Days Geodon (Ziprasidone) 80 Mg Cap 80 Mg PO BIDPC 10 Days Escitalopram (Escitalopram Oxalate) 20 Mg Tab 20 Mg PO DAILY 10 Days Benztropine (Benztropine Mesylate) 2 Mg Tab 2 Mg PO Q12HR 10 Days Reported Trazodone (Trazodone HCl) 100 Mg Tab 100 Mg PO HS Symbicort Inh (Budesonide/Formoterol Fumarate) 160-4.5 Mcg/Act Aero 2 Puff INH Q12HR Sensipar (Cinacalcet) 60 Mg Tab 60 Mg PO DAILY Reglan (Metoclopramide HCl) 5 Mg Tab 5 Mg PO TIDAC Prilosec (Omeprazole) 20 Mg Cap 20 Mg PO DAILY Plavix (Clopidogrel Bisulfate) 75 Mg Tab 75 Mg PO DAILY Nephrocaps (B-Complex W/ C & Folic Acid) 1 Cap 1 Cap PO DAILY If on dialysis, take after treatment. Lexapro (Escitalopram Oxalate) 10 Mg Tab 10 Mg PO DAILY Geodon (Ziprasidone) 80 Mg Cap 80 Mg PO BID Benztropine (Benztropine Mesylate) 2 Mg Tab 2 Mg PO BID Auryxia (Ferric Citrate) 210 Mg Tab Ativan (Lorazepam) 1 Mg Tab 1 Mg PO Q4H PRN Hydroxyzine HCl 10 Mg Tab 10 Mg PO BID Allopurinol 300 Mg Tab 300 Mg PO DAILY Albuterol Neb (Albuterol Sulfate) 2.5 Mg/0.5 Ml Neb 2.5 Mg NEB QID NEB Note: The Albuterol Sulfate Inhalation Solution is concentrated and must be diluted. Read complete instructions carefully before using. Active Ordered Medications Current Medications Medications (Trade) Dose Ordered Sig/Lora Route PRN Reason Start Time Stop Time Status Last Admin Dose Admin IV Flush (NS Flush) 2 ml UNSCH PRN IVF FLUSH AFTER USING IV ACCESS 09/07/16 15:45 Acetaminophen (Tylenol) 650 mg Q4H PRN PO TEMP > 100.4 09/07/16 20:30 Ondansetron HCl (Zofran Inj) 4 mg Q6H PRN IVP NAUSEA OR VOMITING 09/07/16 20:30 Bisacodyl (Dulcolax Supp) 10 mg DAILY PRN [place] CONSTIPATION 09/07/16 20:30 Docusate Sodium (Colace) 100 mg Q12H PO 09/07/16 21:00 09/08/16 09:57 Sennosides (Senokot) 17.2 mg Q12H PRN PO CONSTIPATION 09/07/16 20:30 Acetaminophen (Tylenol) 650 mg Q6H PRN PO PAIN SCALE 1 TO 2 09/07/16 20:30 Acetaminophen/ Hydrocodone Bitart ([place] 5-325 Mg) 1 tab Q4H PRN PO PAIN SCALE 3 TO 5 09/07/16 20:30 Acetaminophen/ Hydrocodone Bitart ([place] 7.5-325 Mg) 1 tab Q4H PRN PO PAIN SCALE 6 TO 10 09/07/16 20:30 09/08/16 11:15 Morphine Sulfate (Morphine Inj) 1 mg Q3H PRN IV BREAKTHROUGH PAIN 09/07/16 20:30 Naloxone HCl (Narcan Inj) 0.4 mg UNSCH PRN IV SEE LABEL COMMENTS 09/07/16 20:30 Vitamin B Complex/ Vit C/Folic Acid (Nephrocaps) 1 cap DAILY PO 09/08/16 09:00 09/08/16 10:07 Benztropine Mesylate (Cogentin) 2 mg Q12HR PO 09/07/16 21:00 Hold 09/08/16 09:57 Budesonide/ Formoterol Fumarate (Symbicort 160-4.5 Inh) 2 puff Q12HR INH 09/07/16 21:00 09/08/16 09:57 Cinacalcet (Sensipar) 60 mg DAILY PO 09/08/16 09:00 09/08/16 09:56 Clopidogrel Bisulfate (Plavix) 75 mg DAILY PO 09/08/16 09:00 Hold 09/08/16 09:56 Escitalopram Oxalate (Lexapro) 10 mg DAILY PO 09/08/16 09:00 09/08/16 09:57 Gabapentin (Neurontin) 100 mg DAILY PO 09/08/16 09:00 09/08/16 09:57 Hydroxyzine HCl (Atarax) 10 mg BID PO 09/07/16 21:00 Hold 09/08/16 09:56 Lorazepam (Ativan) 1 mg Q4H PRN PO for severe anxiety or dyspnea 09/07/16 20:30 Metoclopramide HCl (Reglan) 5 mg TIDAC PO 09/08/16 08:00 Pantoprazole Sodium (Protonix) 20 mg DAILY PO 09/08/16 09:00 09/08/16 10:07 Trazodone HCl (Desyrel) 100 mg HS PO 09/07/16 21:00 Hold 09/07/16 21:21 Ziprasidone (Geodon) 80 mg BID PO 09/07/16 21:00 Hold 09/08/16 10:07 Allopurinol (Zyloprim) 100 mg DAILY PO 09/08/16 09:00 09/08/16 09:57 Hydralazine HCl (Apresoline Inj) 10 mg Q6H PRN IV SBP> OR = 180, DBP> OR = 100 09/07/16 22:30 Clonidine (Catapres) 0.1 mg Q6H PRN PO SBP> OR = 180, DBP> OR = 100 09/07/16 22:30 Heparin Sodium (Porcine) 5000 units 5,000 units Q12HR SQ 09/07/16 23:30 Hold 09/08/16 09:57 Sodium Chloride (NS 1000 ml Inj) 1,000 ml @ 0 mls/hr Q0M PRN IV For Prime & Rinse Back 09/08/16 10:06 Heparin Sodium (Porcine) 8000 units 8,000 units UNSCH PRN IVF WITH DIALYSIS 09/08/16 10:15 Sodium Chloride 1,000 ml @ 200 mls/hr Q5H PRN IV WITH DIALYSIS 09/08/16 10:06 Sodium Chloride (NS 1000 ml Inj) 1,000 ml @ 0 mls/hr Q0M PRN IV WITH DIALYSIS 09/08/16 10:06 Mannitol (Mannitol Inj) 12.5 gm UNSCH PRN IV WITH DIALYSIS 09/08/16 10:15 Albumin Human (Albumin 25% Inj) 25 gm UNSCH PRN IV WITH DIALYSIS 09/08/16 10:15 IV Flush (NS Flush) 5 ml UNSCH PRN IVF WITH DIALYSIS 09/08/16 10:15 Heparin Sodium (Porcine) (Heparin Inj) UNSCH PRN .XX WITH DIALYSIS 09/08/16 10:15 Gentamicin Sulfate (Gentamicin (Dialysis) Inj) 20 mg UNSCH PRN IV WITH DIALYSIS 09/08/16 10:15 Ondansetron HCl (Zofran Inj) 4 mg UNSCH PRN IV WITH DIALYSIS 09/08/16 10:15 Acetaminophen (Tylenol) 650 mg UNSCH PRN PO for headach, pain, temp > 101F 09/08/16 10:15 Diphenhydramine HCl (Benadryl) 25 mg UNSCH PRN PO for hives/itching/anaphylaxis 09/08/16 10:15 Nitroglycerin (Nitrostat Sl) 0.4 mg UNSCH PRN SL CHEST PAIN 09/08/16 10:15 Clonidine (Catapres) 0.1 mg UNSCH PRN PO for BP > 180/100 X 2 readings 09/08/16 10:15 Gelatin (Gelfoam 12 Mm/7 Mm Top) 1 foam UNSCH PRN TOP SEE LABEL COMMENTS 09/08/16 10:15 Sevelamer Carbonate (Renvela) 800 mg TIDAC PO 09/08/16 13:00 IV Flush (NS Flush) UNSCH PRN IVF SEE PROTOCOL 09/08/16 17:30 Heparin Sodium (Porcine) (Heparin Inj) UNSCH PRN IVF SEE PROTOCOL 09/08/16 17:30 Family History Noncontributory Social History Negative 3 Physical Exam Vital Signs Vital Signs Date Time Temp Pulse Resp B/P Pulse Ox O2 Delivery O2 Flow Rate FiO2 09/08/16 19:27 97.7 72 16 150/64 100 09/08/16 15:09 74 09/08/16 13:50 66 16 139/55 96 09/08/16 08:38 98.9 72 18 152/69 95 09/08/16 08:15 98.2 85 24 177/77 94 09/08/16 07:33 98 Nasal Cannula 4.00 09/08/16 03:54 98.9 87 18 139/59 95 09/08/16 00:00 98.1 87 18 167/84 98 09/07/16 23:01 69 09/07/16 22:34 16 Physical Exam GENERAL: Well-nourished, well-developed patient. Somnolent but arousable SKIN: Warm and dry. HEAD: Normocephalic. EYES: No scleral icterus. No injection or drainage. NECK: Supple, trachea midline. No JVD or lymphadenopathy. CARDIOVASCULAR: Regular rate and rhythm without murmurs, gallops, or rubs. RESPIRATORY: Breath sounds equal bilaterally. No accessory muscle use. GASTROINTESTINAL: Abdomen soft, non-tender, nondistended. MUSCULOSKELETAL: No cyanosis, or edema. BACK: Nontender without obvious deformity. No CVA tenderness. EXTREMITIES: Nonfocal Laboratory Laboratory Tests Test 09/08/16 14:03 Nasal Screen MRSA (PCR) NEGATIVE Date/Time Procedure Status Source Growth 09/07/16 18:23 Urine Culture - Preliminary Resulted Urine Catheterized Urine NO GROWTH IN 24 HOURS. Result Diagram: 09/07/16 1605 09/07/16 1605 Imaging Last 24 hours Impressions Shunt Study (Imaging) 09/08/16 1137 Signed Impressions: Service Date/Time: Thursday, September 08, 2016 15:46 - CONCLUSION: 1. Complete occlusion of the venous outflow of the dialysis graft. A Vas-Cath is to be placed Nigel Mcfarland MD Assessment and Plan Problem List: (1) ESRD (end stage renal disease) ICD Code: N18.6 Status: Chronic (2) Emphysema lung ICD Code: J43.9 Status: Acute (3) Bipolar 1 disorder, depressed ICD Code: F31.9 Status: Chronic (4) Hematoma, chest wall ICD Code: S20.219A Status: Acute Assessment and Plan Hematoma of the chest wall - Stat CT confirmed a hematoma of the chest wall - No mediastinal or pleural extravasation - Hold Plavix - Hold subcutaneous heparin - Serial H&H - Transfuse for hemoglobin less than 8 ESRD - Complete obstruction of vascular graft - Multifunction Vas catheter placed earlier today by IR - New HD catheter placed - 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 Time to perform other separately billable procedures was not included in the critical care time. Car Aponte MD Sep 08, 2016 20:24
[2016-09-08 21:08] LABS: AUTOMATED NEUTROPHIL # 6.4 TH/MM3 (1.8-7.7); BASOPHIL % 0.3 % (0.0-2.0); EOSINOPHIL % 0.2 % (0.0-4.0); HEMATOCRIT 24.2 % (35.0-46.0); HEMO FLAGS DIFF FINAL; LYMPH % 7.5 % (9.0-44.0); LYMPHOCYTE # 0.6 TH/MM3 (1.0-4.8); MEAN CELL VOLUME 86.2 FL (80.0-100.0); MEAN CORPUSCULAR HEMOGLOBIN 28.1 PG (27.0-34.0); MEAN CORPUSCULAR HGB CONC 32.6 % (32.0-36.0); MONO % 8.9 % (0.0-8.0); NEUT % 83.1 % (16.0-70.0); PLATELET COUNT 109 TH/MM3 (150-450); RED BLOOD COUNT 2.81 MIL/MM3 (4.00-5.30); RED CELL DISTRIBUTION WIDTH 16.4 % (11.6-17.2); WHITE BLOOD COUNT 7.7 TH/MM3 (4.0-11.0)
[2016-09-08 21:20] LABS: INTERNATIONAL NORMALIZED RATIO 1.1 RATIO; PROTHROMBIN TIME - PATIENT 12.7 SEC (9.8-11.6)
[2016-09-08 21:34] LABS: ALKALINE PHOSPHATASE 88 U/L (45-117); ALT (GPT) 7 U/L (10-53); ANION GAP 9 MEQ/L (5-15); AST (GOT) 13 U/L (15-37); BICARBONATE 29.2 MEQ/L (21.0-32.0); BLOOD UREA NITROGEN 29 MG/DL (7-18); CHLORIDE 90 MEQ/L (98-107); GLOMERULAR FILTRATION RATE 6 ML/MIN (>89); POTASSIUM 4.3 MEQ/L (3.5-5.1); SODIUM (NA) 128 MEQ/L (136-145); TOTAL BILIRUBIN ADULT 0.5 MG/DL (0.2-1.0)
--- NOTE | 2016-09-08 23:03 | RADRPT ---
EXAM DATE/TIME: 09/08/2016 22:24 [facility] COMPARISON: No previous studies available for comparison. INDICATIONS : Status-post vascath placement. RADIATION DOSE: 5.76 CTDIvol (mGy) MEDICAL HISTORY : Chronic obstructive pulmonary disease. SURGICAL HISTORY : Vascath placement. ENCOUNTER: Initial ACUITY: 1 day PAIN SCALE: 5/10 LOCATION: Right anterior Chest TECHNIQUE: Volumetric scanning of the chest was performed. Using automated exposure control and adjustment of t he mA and/or kV according to patient size, radiation dose was kept as low as reasonably achievable to obtain optimal diagnostic quality images. FINDINGS: Patient is reportedly status post Vas-Cath placement. A right-sided Vas-Cath is present with the tip in the superior vena cava. There is a large ill-defined hematoma in the right anterior chest wall yaima suring up to about 12.9 x 11.5 cm. There is no mediastinal hematoma. There is a shunt in the left ant erior chest wall. A small right-sided pleural effusion is present with dense consolidation and atelectasis of the right lower lobe and some of the right middle lobe as well. There is trace left pleural fluid and left bas ilar atelectasis. No pericardial effusion. No adenopathy. Upper abdomen demonstrates no acute findings. Renal atrophy. Mild constipation. Moderate anasarca. CONCLUSION: 1. Status post right Vas-Cath placement but with large hematoma in the right anterior chest wall beatriz uring up to about 12.9 x 1.5 cm. No mediastinal hematoma. 2. Small to moderate right pleural effusion with consolidation and atelectasis of the right posterior lung. Trace left pleural fluid and left basilar atelectasis. 3. Moderate anasarca. No pericardial effusion. Armando Lynne MD on September 08, 2016 at 22:57 Board Certified Radiologist. This report was verified electronically.
[2016-09-09] VITALS (14 sets, daily range): BP systolic 148–181; BP diastolic 65–74; PULSE 68–87; RESP 14–20; TEMP 97.9–98.3; O2SAT 93–100
[2016-09-09] MEDS: BUDESONIDE-FORMOTEROL 160/4.5 MCG INHALER INH SCH ×3 (01:03→20:59)
[2016-09-09] MEDS: hydrALAZINE HCL 20 MG/ML VIAL IV PRN ×2 (01:39→09:09)
[2016-09-09] MEDS: SODIUM CHLOR 0.9% 1000 ML INJ 1,000 ML IV PRN ×2 (01:58→01:59)
[2016-09-09] MEDS: ALBUMIN HUMAN 25% 25 GM/100 ML BAGP IV PRN ×2 (02:15→02:16)
--- NOTE | 2016-09-09 05:52 | PD.PROCEDR ---
Procedure Note Procedure Hemodialysis Catheter A time-out was completed verifying correct patient, procedure, site, positioning , and special equipment if applicable. The patient was placed in a dependent position appropriate for central line placement based on the vein to be cannulated. The patients right neck was prepped and draped in sterile fashion. 1% Lidocaine was used to anesthetize the surrounding skin area. A triple lumen 9 -[place] catheter was introduced into the the internal jugular vein using the Seldinger technique and under ultrasound guidance. The catheter was threaded smoothly over the guide wire and appropriate blood return was obtained. Each lumen of the catheter was evacuated of air and flushed with sterile saline. The catheter was then sutured in place to the skin and a sterile dressing applied. Perfusion to the extremity distal to the point of catheter insertion was checked and found to be adequate. Estimated Blood Loss: 1ml The patient tolerated the procedure well and there were no complications. Car Aponte MD Sep 09, 2016 05:52
[2016-09-09 07:18] LABS: BASOPHIL % 0.3 % (0.0-2.0); EOSINOPHIL % 0.1 % (0.0-4.0); HEMATOCRIT 24.7 % (35.0-46.0); LYMPH % 9.3 % (9.0-44.0); LYMPHOCYTE # 0.6 TH/MM3 (1.0-4.8); MEAN CELL VOLUME 86.3 FL (80.0-100.0); MEAN CORPUSCULAR HEMOGLOBIN 29.4 PG (27.0-34.0); NEUT % 80.3 % (16.0-70.0); PLATELET COUNT 46 TH/MM3 (150-450); RED BLOOD COUNT 2.86 MIL/MM3 (4.00-5.30); RED CELL DISTRIBUTION WIDTH 15.5 % (11.6-17.2); WHITE BLOOD COUNT 6.2 TH/MM3 (4.0-11.0)
[2016-09-09] MEDS: RESP: ALBUTEROL 2.5 MG/3 ML NEB (SCH) INH ×4 (07:21→19:26)
[2016-09-09 07:42] LABS: BICARBONATE 31.9 MEQ/L (21.0-32.0); FREE T3 1.48 PG/ML (2.18-3.98); FREE T4 0.98 NG/DL (0.76-1.46); POTASSIUM 4.1 MEQ/L (3.5-5.1)
[2016-09-09 07:51] LABS: HEMO FLAGS AUTO DIFF
[2016-09-09 07:53] LABS: OVALOCYTES 1+ (NORMAL); PLATELET ESTIMATE SMEAR LOW (NORMAL); PLATELET MORPHOLOGY ENLARGED (NORMAL); SCAN/DIFF AUTO DIFF CONFIRMED
[2016-09-09] MEDS: VITAMIN B CMPLX/VITC/FOLIC AC CAP PO SCH (08:59)
[2016-09-09] MEDS: PANTOPRAZOLE SOD 20 MG DELAYED RELEASE TAB PO SCH (08:59)
[2016-09-09] MEDS: METOCLOPRAMIDE HCL 10 MG TAB PO SCH ×3 (09:00→17:24)
[2016-09-09] MEDS: ALLOPURINOL 100 MG TAB PO SCH (09:00)
[2016-09-09] MEDS: SEVELAMER CARBONATE 800 MG TAB PO SCH ×3 (09:00→17:25)
[2016-09-09] MEDS: GABAPENTIN 100 MG CAP PO SCH (09:00)
[2016-09-09] MEDS: DOCUSATE SODIUM 100 MG CAP PO SCH ×2 (09:00→20:59)
[2016-09-09] MEDS: ESCITALOPRAM OXALATE 10 MG TAB PO SCH (09:02)
[2016-09-09] MEDS: CINACALCET HYDROCHLORIDE 30 MG TAB PO SCH (09:05)
[2016-09-09] MEDS: ACETAMINOPHEN/HYDROcodone 325 MG/7.5 MG TAB PO PRN ×3 (09:07→21:11)
--- NOTE | 2016-09-09 09:58 | RADRPT ---
EXAM DATE/TIME: 09/08/2016 15:46 [facility] COMPARISON: CT THORAX W/O CONTRAST, September 08, 2016, 22:24. INDICATIONS : Patient with a history of renal disease, needs dialysis. MEDICAL HISTORY : ESRD on hemodialysis Emphysema bipolar COPD SURGICAL HISTORY : AV fistula Ovarian cyst drained x3 stent to right groin ENCOUNTER: Initial ACUITY: 1 day PAIN SCORE: 0/10 FLUORO TIME: 2.5 minutes ACCESS: Right subclavian vein DEVICE(S): 1.) 20 cm temporary dialysis catheter PROCEDURE : 1. Ultrasound guided venipuncture. 2. Fluoroscopic guidance. 3. Central line placement. The risks, benefits and alternatives to the procedure were explained and verbal and written consent w as obtained. The site was prepped in sterile fashion. Full sterile technique was used, including ca p, mask, sterile gloves and gown and a large sterile sheet. Hand hygiene and 2% chlorhexidine prep w as utilized per protocol for cutaneous antisepsis with appropriate dry time for site. The skin and subcutaneous tissues were infiltrated with local anesthetic solution. A suitable site a nirmal the vein was selected with ultrasound and fluoroscopic guidance. A small incision was made. Th e vein was accessed under direct ultrasound visualization using the micropuncture technique. The thanh ropuncture set was exchanged for a 0.035 wire. The tract was dilated. The catheter was advanced int o position under direct fluoroscopic visualization. The catheter was fixed in place with suture and a sterile dressing was applied. The patient tolerated the procedure well and there were no complications. CONCLUSION: Uncomplicated line placement as above. Nigel Mcfarland MD on September 09, 2016 at 9:54 Board Certified Radiologist. This report was verified electronically.
--- NOTE | 2016-09-09 12:49 | HHI.NPPN ---
Subjective General Problems: Anemia Interval History AVG left arm unable to be declotted. A vascath was placed right subclavian, HD was started last night. She however developed significant extravasation at the site resulting in large hematoma formation after 1 hr. HD was stopped. A vascath was later placed in the groin. She was dialyzed early this morning with 4L UF. She is still sleepy but more alert compared to yesterday. The dialysis nurses attempted to contact [facility] dialysis clinic to inquire about HD access; they are closed on Tuesdays therefore we were unable to obtain information regarding access. Today she is able to tell us she has a graft in her left chest for dialysis. (Alexia Curtis) Review of Systems General Constitutional: Fatigue (Alexia Curtis) Objective Data Data 09/08/16 09/09/16 19:00 07:00 Intake Total 600 ml Output Total 1000 ml 3000 ml Balance -1000 ml -2400 ml Intake IV Total 0 ml Packed Cells 600 ml Output Urine Total 0 ml Hemodialysis 1000 ml 3000 ml Vital Signs Date Time Temp Pulse Resp B/P Pulse Ox O2 Delivery O2 Flow Rate FiO2 09/09/16 10:00 87 09/09/16 08:00 82 09/09/16 08:00 97.9 82 16 181/74 99 09/09/16 07:24 98 Nasal Cannula 2.00 09/09/16 06:00 82 09/09/16 04:00 98.2 82 14 167/72 100 09/09/16 04:00 82 09/09/16 02:00 76 09/09/16 00:00 69 09/09/16 00:00 98.2 69 14 170/70 100 09/08/16 22:00 69 09/08/16 20:00 70 09/08/16 20:00 97.9 70 20 152/68 100 09/08/16 19:40 100 Nasal Cannula 2.00 09/08/16 19:27 97.7 72 16 150/64 100 09/08/16 15:09 74 09/08/16 13:50 66 16 139/55 96 (Alexia Curtis) -: 09/09/16 0633 09/09/16 0633 Imaging Last 72 hours Impressions Shunt Study (Imaging) 09/08/16 1137 Signed Impressions: Service Date/Time: Thursday, September 08, 2016 15:46 - CONCLUSION: 1. Complete occlusion of the venous outflow of the dialysis graft. A Vas-Cath is to be placed Nigel Mcfarland MD Chest CT 09/08/16 0000 Signed Impressions: Service Date/Time: Thursday, September 08, 2016 22:24 - CONCLUSION: 1. Status post right Vas-Cath placement but with large hematoma in the right anterior chest wall measuring up to about 12.9 x 1.5 cm. No mediastinal hematoma. 2. Small to moderate right pleural effusion with consolidation and atelectasis of the right posterior lung. Trace left pleural fluid and left basilar atelectasis. 3. Moderate anasarca. No pericardial effusion. Armando Lynne MD Catheter Placement X-Ray 09/08/16 0000 Signed Impressions: Service Date/Time: Thursday, September 08, 2016 15:46 - CONCLUSION: Uncomplicated line placement as above. Nigel Mcfarland MD Chest X-Ray 09/07/16 1605 Signed Impressions: Service Date/Time: Wednesday, September 07, 2016 16:16 - CONCLUSION: 1. Compensated cardiomegaly. 2. Minimal blunting of right and left costophrenic sulci. Clinton Parmar MD FACR Head CT 09/07/16 0000 Signed Impressions: Service Date/Time: Thursday, September 08, 2016 12:23 - CONCLUSION: 1. Punctate high density in the roof of third ventricle may be related to colloid cyst versus less likely punctate hemorrhage. 2. No acute abnormality. Shilo Sher MD Tubes & Lines: Vas-Cath (Alexia Curtis B. QUILLER OPERATOR) Physical Exam General Appearance: Well Nourished, No Acute Distress, Sleeping (Alexia Curtis B. QUILLER OPERATOR) Throat Throat Exam: Oral Mucosa [place] & Moist (Alexia Curtis B. QUILLER OPERATOR) Neck Neck Exam: Neck Supple (Alexia Curtis B. QUILLER OPERATOR) Pulmonary Resp Exam: Breath Sounds Equal, No Distress (Alexia Curtis B. QUILLER OPERATOR) Cardiology CV Exam: Regular, Good Perfusion CV Remarks hematoma right chest wall, tender to palpation, vascath in right chest graft left chest above breast, + thrill/bruit (Alexia Curtis) Gastrointestinal/Abdomen GI Exam: Soft, Non-Tender (Alexia Curtis) Musculoskeletal MS Exam: Joints Intact (Alexia Curtis) Integumentary Skin Exam: Warm, Dry (Alexia Curtis) Extremeties Extremities Exam: Pedal Pulses Palpable (Alexia Curtis) Neurologic Neuro Exam: Moving All Extremities, Stuporous (Alexia Curtis) Assessment/Plan Discussed Condition With: Patient Problem List: (1) ESRD (end stage renal disease) Plan: dialysis, she missed Wed and wednesday due to transportation issues she had 4 liters UF this morning (Wed) with dialysis vascath in right subclavian will be removed (tomorrow) vascath in groin today the pt is able to tell us she has graft in left chest that is typically used for dialysis, we will attempt to use next HD; if successful we will remove the vascaths K is acceptable at this time recheck electrolytes in am, may repeat dialysis tomorrow avoid IVF, gadolinium renal panel in am \ (2) Hematoma, chest wall Plan: it appears to be resolving, monitor (3) Uremia Plan: typical dialysis , she was dialyzed early today may require treatment tomorrow depending on clinical condition (4) Hypertension Plan: BP elevated begin clonidine 0.1 BID and losartan 25 BID (5) Metabolic bone disease Plan: on renvela, check phos in am (6) Anemia Plan: epogen with dialysis (Alexia Curtis) Plan patient was seen and examined. Agree with above assessment and plan. (Omar Momin MD) Alexia Curtis Sep 09, 2016 12:49 Omar Momin MD Sep 10, 2016 10:45
--- NOTE | 2016-09-09 13:25 | HHI.CCPN ---
Subjective Remarks/Hospital Course 51-year-old female with a history of ESRD on hemodialysis,emphysema, Bipolar, and COPD, history of noncompliance who was having lethargy but was able to answer questions presented to the ED with complaints of weakness, and a fall after having hand tremors. Her carding machine operator Dr. Vinson requested admission to medical service for uremia. Dialysis catheter was placed by IR Dr. Mcfarland. Critical care medicine was consulted for right chest wall Vas-Cath infiltrate. I have discussed the issue with Dr. Mcfarland, per his statement the procedure was uncomplicated and the tip of catheter was confirmed by IV contrast under fluoroscopy. His recommendations are to observe patient without any further intervention. The patient was on Plavix prior procedure and this could be simple chest wall hematoma. Subjective: 09/09: Expansion of hematoma. Serial hemoglobins every 6 hours initiated. Noticed significant thrombocytopenia platelet count 46 from 109. Will repeat CBC, a platelet count less than 50,000 we'll transfuse. The patient is notably hoarse complaining of sore throat, Chloraseptic [place] initiated will monitor for possible continued throat pressure/pain. Patient is tolerating renal diet. Objective Vital Signs Date Time Temp Pulse Resp B/P Pulse Ox O2 Delivery O2 Flow Rate FiO2 09/09/16 10:00 87 09/09/16 08:00 97.9 16 181/74 99 09/09/16 07:24 Nasal Cannula 2.00 Intake and Output 09/08/16 09/08/16 09/09/16 08:00 16:00 00:00 Intake Total 0 ml Output Total 1000 ml Balance -1000 ml Result Diagram: 09/09/16 0633 09/09/16 0633 Other Results Microbiology Date/Time Procedure Status Source Growth 09/07/16 18:23 Urine Culture - Final Complete Urine Catheterized Urine NO GROWTH IN 48 HOURS. Imaging Last 24 hours Impressions Shunt Study (Imaging) 09/08/16 1137 Signed Impressions: Service Date/Time: Thursday, September 08, 2016 15:46 - CONCLUSION: 1. Complete occlusion of the venous outflow of the dialysis graft. A Vas-Cath is to be placed Nigel Mcfarland MD Objective Remarks GENERAL: Well-nourished, well-developed patient. Somnolent but arousable SKIN: Warm and dry. HEAD: Normocephalic. EYES: No scleral icterus. No injection or drainage. NECK: Supple, trachea midline. No JVD or lymphadenopathy. CARDIOVASCULAR: Regular rate and rhythm without murmurs, gallops, or rubs. RESPIRATORY: Breath sounds equal bilaterally. No accessory muscle use. GASTROINTESTINAL: Abdomen soft, non-tender, nondistended. MUSCULOSKELETAL: No cyanosis, or edema. BACK: Nontender without obvious deformity. No CVA tenderness. EXTREMITIES: Nonfocal A/P Problem List: (1) ESRD (end stage renal disease) ICD Code: N18.6 Status: Chronic (2) Emphysema lung ICD Code: J43.9 Status: Acute (3) Bipolar 1 disorder, depressed ICD Code: F31.9 Status: Chronic (4) Hematoma, chest wall ICD Code: S20.219A Status: Acute Assessment and Plan Hematoma of the chest wall - Stat CT confirmed a hematoma of the chest wall - No mediastinal or pleural extravasation - Hold Plavix - Hold subcutaneous heparin - Serial H&H every 6 hours - Transfuse for hemoglobin less than 8 -Thrombocytopenia platelet count 46, repeat level transfuse if less than 50,000 ESRD - Complete obstruction of vascular graft - Multifunction Vas catheter placed earlier today by IR - New HD catheter placed right femoral - Hemodialysis per carding machine operator COPD - Exacerbation - Continue DuoNeb's Hypertension - Clonidine and hydralazine Bipolar disorder - Continue home med Lexapro - When necessary Ativan DVT GI prophylaxis - Teds SCDs - No chemical DVT prophylaxis due to hematoma - Protonix Critical Care: Level 2 Discussed with CASTING FINISHER at bedside. Physician Namrata Briceno MD Sep 09, 2016 13:25
[2016-09-09] MEDS ORDERED: BENZOCAINE 6 MG/MENTHOL 10 MG LOZENGE BUCCAL PRN (13:30)
[2016-09-09 14:44] LABS: AUTOMATED NEUTROPHIL # 5.8 TH/MM3 (1.8-7.7); BASOPHIL # 0.1 TH/MM3 (0-0.2); BASOPHIL % 0.7 % (0.0-2.0); EOSINOPHIL % 0.2 % (0.0-4.0); HEMATOCRIT 26.2 % (35.0-46.0); LYMPH % 11.5 % (9.0-44.0); LYMPHOCYTE # 0.9 TH/MM3 (1.0-4.8); MEAN CELL VOLUME 86.7 FL (80.0-100.0); MEAN CORPUSCULAR HEMOGLOBIN 29.1 PG (27.0-34.0); MEAN CORPUSCULAR HGB CONC 33.6 % (32.0-36.0); MONO % 10.7 % (0.0-8.0); NEUT % 76.9 % (16.0-70.0); PLATELET COUNT 56 TH/MM3 (150-450); RED BLOOD COUNT 3.02 MIL/MM3 (4.00-5.30); RED CELL DISTRIBUTION WIDTH 16.1 % (11.6-17.2); WHITE BLOOD COUNT 7.6 TH/MM3 (4.0-11.0)
[2016-09-09 14:50] LABS: HEMO FLAGS AUTO DIFF
[2016-09-09 14:52] LABS: APTT (PATIENT) 33.2 SEC (24.3-30.1); INTERNATIONAL NORMALIZED RATIO 1.1 RATIO; PROTHROMBIN TIME - PATIENT 12.2 SEC (9.8-11.6)
[2016-09-09] MEDS: LOSARTAN 25 MG TAB PO SCH ×2 (15:05→20:59)
[2016-09-09 15:26] LABS: PLATELET ESTIMATE SMEAR LOW (NORMAL); PLATELET MORPHOLOGY NORMAL (NORMAL); SCAN/DIFF AUTO DIFF CONFIRMED
[2016-09-09] MEDS: cloNIDine HCL 0.1 MG TAB PO SCH (20:59)
[2016-09-09 21:54] LABS: HEMATOCRIT 25.9 % (35.0-46.0)
[2016-09-09 22:02] LABS: REVIEW FLAG FINAL
[2016-09-10] VITALS (14 sets, daily range): BP systolic 105–174; BP diastolic 53–71; PULSE 66–83; RESP 12–22; TEMP 98.1–99.1; O2SAT 93–100
[2016-09-10] MEDS: ACETAMINOPHEN/HYDROcodone 325 MG/7.5 MG TAB PO PRN ×2 (02:28→20:43)
[2016-09-10 02:41] LABS: HEMATOCRIT 23.3 % (35.0-46.0); MEAN CELL VOLUME 86.7 FL (80.0-100.0); MEAN CORPUSCULAR HEMOGLOBIN 29.2 PG (27.0-34.0); MEAN CORPUSCULAR HGB CONC 33.6 % (32.0-36.0); PLATELET COUNT 51 TH/MM3 (150-450); RED BLOOD COUNT 2.69 MIL/MM3 (4.00-5.30); RED CELL DISTRIBUTION WIDTH 15.4 % (11.6-17.2); WHITE BLOOD COUNT 5.5 TH/MM3 (4.0-11.0)
[2016-09-10 02:43] LABS: REVIEW FLAG FINAL
[2016-09-10 02:56] LABS: BICARBONATE 28.6 MEQ/L (21.0-32.0); MAGNESIUM 2.2 MG/DL (1.5-2.5); POTASSIUM 4.3 MEQ/L (3.5-5.1)
--- NOTE | 2016-09-10 06:29 | RADRPT ---
EXAM DATE/TIME: 09/10/2016 03:51 [facility] COMPARISON: CHEST SINGLE AP, September 07, 2016, 16:16. INDICATIONS : Shortness of breath, possible pulmonary disease. MEDICAL HISTORY : Chronic obstructive pulmonary disease. SURGICAL HISTORY : Vascath ENCOUNTER: Subsequent ACUITY: 4 - 6 days PAIN SCORE: 4/10 LOCATION: Bilateral chest FINDINGS: There is an increase in the density of right basilar lung consolidation. Patchy left basilar opacity present. Small effusions. Cardiomegaly. No pneumothorax. CONCLUSION: 1. Increase in right lung base consolidation since September 07. Small effusions. Armando Lynne MD on September 10, 2016 at 6:27 Board Certified Radiologist. This report was verified electronically.
[2016-09-10] MEDS: RESP: ALBUTEROL 2.5 MG/3 ML NEB (SCH) INH ×4 (08:22→19:21)
[2016-09-10] MEDS: BUDESONIDE-FORMOTEROL 160/4.5 MCG INHALER INH SCH ×2 (09:00→20:42)
[2016-09-10 09:27] LABS: TRANSFERRIN IRON PROFILE 103 MG/DL (200-360)
[2016-09-10 09:40] LABS: HEMATOCRIT 25.8 % (35.0-46.0)
[2016-09-10] MEDS ORDERED: SODIUM CHLOR 0.9% 250 ML INJ 250 ML IV ONE (09:45)
--- NOTE | 2016-09-10 09:48 | HHI.NPPN ---
Subjective General Problems: Anemia Renal Failure: Chronic, End Stage Renal Disease Interval History She is sitting up, awake but sleepy. Large area of ecchymosis right breast. She is severely anemic and thrombocytopenic. (Alexia Curtis) Review of Systems General Constitutional: Fatigue (Alexia Curtis) Objective Data Data 09/09/16 09/10/16 19:00 07:00 Intake Total 480 ml 960 ml Output Total 350 ml 20 ml Balance 130 ml 940 ml Intake Oral 480 ml 960 ml Output Urine Total 350 ml 20 ml Stool Total 0 ml Bladder Scan Volume Amount 400 ml 140 ml 40 ml 30 ml Vital Signs Date Time Temp Pulse Resp B/P Pulse Ox O2 Delivery O2 Flow Rate FiO2 09/10/16 06:00 69 09/10/16 04:00 98.2 69 12 110/55 93 09/10/16 04:00 69 09/10/16 03:44 25 09/10/16 02:00 67 09/10/16 00:00 98.1 66 14 105/53 100 09/10/16 00:00 66 09/09/16 22:00 68 09/09/16 20:00 72 09/09/16 20:00 98.3 79 19 148/67 93 09/09/16 19:28 95 Nasal Cannula 2.00 09/09/16 18:00 79 09/09/16 16:00 76 09/09/16 16:00 98.1 76 17 156/65 93 09/09/16 14:00 81 09/09/16 12:00 81 09/09/16 12:00 98.1 81 20 157/69 99 09/09/16 10:00 87 (Alexia Curtis) -: 09/10/16 0227 09/10/16 0227 Imaging Last 72 hours Impressions Chest X-Ray 09/10/16 0600 Signed Impressions: Service Date/Time: September 03:51 - CONCLUSION: 1. Increase in right lung base consolidation since September 07. Small effusions. Armando Lynne MD Shunt Study (Imaging) 09/08/16 1137 Signed Impressions: Service Date/Time: Thursday, September 08, 2016 15:46 - CONCLUSION: 1. Complete occlusion of the venous outflow of the dialysis graft. A Vas-Cath is to be placed Nigel Mcfarland MD Chest CT 09/08/16 0000 Signed Impressions: Service Date/Time: Thursday, September 08, 2016 22:24 - CONCLUSION: 1. Status post right Vas-Cath placement but with large hematoma in the right anterior chest wall measuring up to about 12.9 x 1.5 cm. No mediastinal hematoma. 2. Small to moderate right pleural effusion with consolidation and atelectasis of the right posterior lung. Trace left pleural fluid and left basilar atelectasis. 3. Moderate anasarca. No pericardial effusion. Armando Lynne MD Catheter Placement X-Ray 09/08/16 0000 Signed Impressions: Service Date/Time: Thursday, September 08, 2016 15:46 - CONCLUSION: Uncomplicated line placement as above. Nigel Mcfarland MD Chest X-Ray 09/07/16 1605 Signed Impressions: Service Date/Time: Wednesday, September 07, 2016 16:16 - CONCLUSION: 1. Compensated cardiomegaly. 2. Minimal blunting of right and left costophrenic sulci. Clinton Parmar MD FACR Tubes & Lines: Vas-Cath (Alexia Curtis B. STEAM HEATING INSTALLER) Physical Exam General Appearance: Well Nourished, No Acute Distress (Alexia Curtis B. STEAM HEATING INSTALLER) Throat Throat Exam: Oral Mucosa [place] & Moist (Alexia Curtis B. STEAM HEATING INSTALLER) Neck Neck Exam: Neck Supple (Alexia Curtis B. STEAM HEATING INSTALLER) Pulmonary Resp Exam: Breath Sounds Equal, No Distress (Alexia Curtis B. STEAM HEATING INSTALLER) Cardiology CV Exam: Regular, Good Perfusion CV Remarks hematoma right chest wall with ecchymosis extending around breast to back, tender to palpation, vascath in right chest graft left chest above breast, + thrill/bruit (Alexia Curtis B. STEAM HEATING INSTALLER) Gastrointestinal/Abdomen GI Exam: Soft, Non-Tender (Alexia Curtis B. STEAM HEATING INSTALLER) Musculoskeletal MS Exam: Joints Intact, Normal Tone (Alexia Curtis B. STEAM HEATING INSTALLER) Integumentary Skin Exam: Warm, Dry, Intact (Alexia Curtis B. STEAM HEATING INSTALLER) Extremeties Extremities Exam: No Edema, Pedal Pulses Palpable (Alexia Curtis) Neurologic Neuro Exam: Alert, Awake, Oriented, Speech Clear, Moving All Extremities ( Alexia Curtis) Psychiatric Psych Exam: Appropriate Responses (Alexia Curtis) Assessment/Plan Discussed Condition With: Patient Assessment Summary: End Stage Renal Disease Problem List: (1) ESRD (end stage renal disease) Plan: -- dialysis per normal schedule she has missed several treatments, dialyzed Wed with 4 liter UF will repeat HD today, to receive 2 units with dialysis, resume schedule tomorrow will use left chest AV graft today, remove groin vascath if graft functions well vascath in right subclavian, attempt removal later today K is acceptable at this time recheck electrolytes in am, dialysis as above avoid IVF, gadolinium renal panel in am (2) Hematoma, chest wall Plan: monitor, serial imaging now with anemia and consumptive thrombocytopenia, transfuse platelets if needed developing atelectasis from compression of right lung, given incentive spirometer (3) Uremia Plan: continue dialysis as above (4) Hypertension Plan: BP improved on clonidine 0.1 BID and losartan 25 BID (5) Metabolic bone disease Plan: on renvela, check phos in am (6) Anemia Plan: epogen with dialysis given 2 units yesterday, ordered 2 units to be given during dialysis iron profile ordered (Alexia Curtis) Plan patient was seen and examined. Seen during dialysis. Chest AVG cannulated. Will need to remove Femoral and right subclavian VasCath. Patient remains lethargic. Monitor thrombocytopenia. (Omar Momin MD) Alexia Curtis Sep 10, 2016 09:47 Omar Momin MD Sep 10, 2016 15:06
[2016-09-10] MEDS: VITAMIN B CMPLX/VITC/FOLIC AC CAP PO SCH (10:57)
[2016-09-10] MEDS: METOCLOPRAMIDE HCL 10 MG TAB PO SCH ×3 (10:57→15:11)
[2016-09-10] MEDS: LOSARTAN 25 MG TAB PO SCH ×2 (10:57→20:43)
[2016-09-10] MEDS: SEVELAMER CARBONATE 800 MG TAB PO SCH ×3 (10:58→15:11)
[2016-09-10] MEDS: CINACALCET HYDROCHLORIDE 30 MG TAB PO SCH (10:58)
[2016-09-10] MEDS: ESCITALOPRAM OXALATE 10 MG TAB PO SCH (10:58)
[2016-09-10] MEDS: cloNIDine HCL 0.1 MG TAB PO SCH ×2 (10:58→20:42)
[2016-09-10] MEDS: PANTOPRAZOLE SOD 20 MG DELAYED RELEASE TAB PO SCH (10:58)
[2016-09-10] MEDS: GABAPENTIN 100 MG CAP PO SCH (10:58)
[2016-09-10] MEDS: DOCUSATE SODIUM 100 MG CAP PO SCH ×2 (10:58→20:42)
[2016-09-10] MEDS: ALLOPURINOL 100 MG TAB PO SCH (10:59)
[2016-09-10] MEDS: GELATIN 12 MM/7 MM FOAM TOP PRN (11:27)
[2016-09-10] MEDS: SODIUM CHLOR 0.9% 1000 ML INJ 1,000 ML IV PRN ×2 (11:27→11:28)
--- NOTE | 2016-09-10 12:32 | HHI.CCPN ---
Subjective Remarks/Hospital Course 51-year-old female with a history of ESRD on hemodialysis,emphysema, Bipolar, and COPD, history of noncompliance who was having lethargy but was able to answer questions presented to the ED with complaints of weakness, and a fall after having hand tremors. Her air brush artist Dr. Vinson requested admission to medical service for uremia. Dialysis catheter was placed by IR Dr. Mcfarland. Critical care medicine was consulted for right chest wall Vas-Cath infiltrate. I have discussed the issue with Dr. Mcfarland, per his statement the procedure was uncomplicated and the tip of catheter was confirmed by IV contrast under fluoroscopy. His recommendations are to observe patient without any further intervention. The patient was on Plavix prior procedure and this could be simple chest wall hematoma. Subjective: 09/09: Expansion of hematoma. Serial hemoglobins every 6 hours initiated. Noticed significant thrombocytopenia platelet count 46 from 109. Will repeat CBC, a platelet count less than 50,000 we'll transfuse. The patient is notably hoarse complaining of sore throat, Chloraseptic Le[place] initiated will monitor for possible continued throat pressure/pain. Patient is tolerating renal diet. 3: No acute events overnight. Heme every 6 hours hemoglobin stable. Last hemoglobin 8.6. Plan for removal of Vas-Cath, platelet count 51,000. Repeat CBC post removal of groin vas catheter, and closely monitor for signs of bleeding. Patient out of bed to chair, tolerating diet. No further expansion of hematoma. Patient to be dialyzed this afternoon. Objective Vital Signs Date Time Temp Pulse Resp B/P Pulse Ox O2 Delivery O2 Flow Rate FiO2 09/10/16 10:53 93 21 09/10/16 10:00 69 09/10/16 08:00 98.7 16 174/71 09/09/16 19:28 Nasal Cannula 2.00 Intake and Output 09/09/16 09/09/16 09/10/16 08:00 16:00 00:00 Intake Total 600 ml 480 ml 480 ml Output Total 3000 ml 350 ml Balance -2400 ml 130 ml 480 ml Result Diagram: 09/10/16 0912 09/10/16 0227 Other Results Microbiology Date/Time Procedure Status Source Growth 09/07/16 18:23 Urine Culture - Final Complete Urine Catheterized Urine NO GROWTH IN 48 HOURS. Imaging Last 24 hours Impressions Shunt Study (Imaging) 09/08/16 1137 Signed Impressions: Service Date/Time: Thursday, September 08, 2016 15:46 - CONCLUSION: 1. Complete occlusion of the venous outflow of the dialysis graft. A Vas-Cath is to be placed Nigel Mcfarland MD Objective Remarks GENERAL: Well-nourished, well-developed patient. Somnolent but arousable SKIN: Warm and dry. HEAD: Normocephalic. EYES: No scleral icterus. No injection or drainage. NECK: Supple, trachea midline. No JVD or lymphadenopathy. CARDIOVASCULAR: Regular rate and rhythm without murmurs, gallops, or rubs. RESPIRATORY: Breath sounds equal bilaterally. No accessory muscle use. GASTROINTESTINAL: Abdomen soft, non-tender, nondistended. MUSCULOSKELETAL: No cyanosis, or edema. Left chest AV graft patent, per nephrology. Will dialyze through graft today. BACK: Nontender without obvious deformity. No CVA tenderness. EXTREMITIES: Moves extremities 4 Procedures Removal of vas catheters today A/P Problem List: (1) ESRD (end stage renal disease) ICD Code: N18.6 Status: Chronic (2) Emphysema lung ICD Code: J43.9 Status: Acute (3) Bipolar 1 disorder, depressed ICD Code: F31.9 Status: Chronic (4) Hematoma, chest wall ICD Code: S20.219A Status: Acute Assessment and Plan Hematoma of the chest wall - Stat CT confirmed a hematoma of the chest wall - No mediastinal or pleural extravasation - Hold Plavix - Hold subcutaneous heparin - Serial hemoglobins have been stable last hemoglobin 8.6 - Transfuse for hemoglobin less than 8 -Thrombocytopenia platelet count 51,000. Planned removal of groin vas catheter today. We will repeat hemoglobin post removal, and monitor closely for signs of bleeding. ESRD - Complete obstruction of vascular graft - Multifunction Vas catheter placed 09/09 by IR - Hemodialysis today left chest COPD - Exacerbation - Continue DuoNeb's every 6 hours Hypertension - Clonidine and hydralazine Bipolar disorder - Continue home med Lexapro - When necessary Ativan DVT GI prophylaxis - Teds SCDs - No chemical DVT prophylaxis due to hematoma - Protonix Critical Care: Level 2 Discussed with BULL DRIVER at bedside. Called Alexia DOWNS, confirmed removal of groin vascular catheter today. We will continue to monitor chest wall hematoma and possibly remove right chest vas catheter in [facility]m.. [facility] Physician Namrata Briceno MD Sep 10, 2016 12:31
[2016-09-10] MEDS ORDERED: DESMOPRESSIN INJ 20 MCG in SODIUM CHLORIDE 0.9% INJ 50 ML IV ONE (14:30)
[2016-09-10 15:09] LABS: HEMATOCRIT 30.2 % (35.0-46.0)
[2016-09-10 15:10] LABS: REVIEW FLAG FINAL
[2016-09-10 16:58] LABS: HEMATOCRIT 30.2 % (35.0-46.0); MEAN CELL VOLUME 85.4 FL (80.0-100.0); MEAN CORPUSCULAR HEMOGLOBIN 29.7 PG (27.0-34.0); MEAN CORPUSCULAR HGB CONC 34.8 % (32.0-36.0); PLATELET COUNT 55 TH/MM3 (150-450); RED BLOOD COUNT 3.53 MIL/MM3 (4.00-5.30); RED CELL DISTRIBUTION WIDTH 15.8 % (11.6-17.2); WHITE BLOOD COUNT 8.4 TH/MM3 (4.0-11.0)
[2016-09-10 17:14] LABS: REVIEW FLAG FINAL
[2016-09-10 20:54] LABS: HEMATOCRIT 27.8 % (35.0-46.0)
[2016-09-10 21:04] LABS: REVIEW FLAG FINAL
[2016-09-11] VITALS (14 sets, daily range): BP systolic 109–166; BP diastolic 55–70; PULSE 68–88; RESP 15–27; TEMP 97.7–99.1; O2SAT 93–100
[2016-09-11 02:31] LABS: HEMATOCRIT 28.4 % (35.0-46.0); MEAN CELL VOLUME 86.3 FL (80.0-100.0); MEAN CORPUSCULAR HEMOGLOBIN 29.1 PG (27.0-34.0); MEAN CORPUSCULAR HGB CONC 33.7 % (32.0-36.0); PLATELET COUNT 57 TH/MM3 (150-450); RED BLOOD COUNT 3.29 MIL/MM3 (4.00-5.30); RED CELL DISTRIBUTION WIDTH 15.9 % (11.6-17.2); WHITE BLOOD COUNT 6.1 TH/MM3 (4.0-11.0)
[2016-09-11 02:32] LABS: REVIEW FLAG FINAL
[2016-09-11 02:53] LABS: BICARBONATE 29.3 MEQ/L (21.0-32.0); POTASSIUM 3.9 MEQ/L (3.5-5.1)
[2016-09-11] MEDS: RESP: ALBUTEROL 2.5 MG/3 ML NEB (SCH) INH ×4 (08:08→19:35)
[2016-09-11] MEDS: DOCUSATE SODIUM 100 MG CAP PO SCH ×2 (09:53→20:50)
[2016-09-11] MEDS: ESCITALOPRAM OXALATE 10 MG TAB PO SCH (09:53)
[2016-09-11] MEDS: SEVELAMER CARBONATE 800 MG TAB PO SCH ×3 (09:53→18:18)
[2016-09-11] MEDS: CINACALCET HYDROCHLORIDE 30 MG TAB PO SCH (09:54)
[2016-09-11] MEDS: cloNIDine HCL 0.1 MG TAB PO SCH ×2 (09:54→20:49)
[2016-09-11] MEDS: LOSARTAN 25 MG TAB PO SCH ×2 (09:54→20:49)
[2016-09-11] MEDS: VITAMIN B CMPLX/VITC/FOLIC AC CAP PO SCH (09:54)
[2016-09-11] MEDS: ALLOPURINOL 100 MG TAB PO SCH (09:54)
[2016-09-11] MEDS: PANTOPRAZOLE SOD 20 MG DELAYED RELEASE TAB PO SCH (09:55)
[2016-09-11] MEDS: BUDESONIDE-FORMOTEROL 160/4.5 MCG INHALER INH SCH ×2 (09:55→23:22)
[2016-09-11] MEDS: GABAPENTIN 100 MG CAP PO SCH (09:55)
[2016-09-11] MEDS: METOCLOPRAMIDE HCL 10 MG TAB PO SCH ×3 (09:55→18:18)
[2016-09-11] MEDS: ACETAMINOPHEN/HYDROcodone 325 MG/7.5 MG TAB PO PRN ×2 (10:17→20:49)
--- NOTE | 2016-09-11 10:17 | HHI.NPPN ---
Subjective General Problems: Anemia Renal Failure: Chronic, End Stage Renal Disease Interval History Sitting up in chair. She had dialysis yesterday. Vascath in right groin removed , bled profusely per nursing. She also bled from AVG in left chest when it was decannulated. She did receive platelet transfusion. (Alexia Curtis) Review of Systems General Constitutional: Fatigue (Alexia Curtis) Heme-Lymph Heme-Lymph: Bleeding (Alexia Curtis) Objective Data Data 09/10/16 09/11/16 19:00 07:00 Intake Total 240 ml 540 ml Output Total 3000 ml 20 ml Balance -2760 ml 520 ml Intake Oral 240 ml 540 ml Output Urine Total 20 ml Hemodialysis 3000 ml Bladder Scan Volume Amount 50 ml 15 ml Vital Signs Date Time Temp Pulse Resp B/P Pulse Ox O2 Delivery O2 Flow Rate FiO2 09/11/16 08:08 93 Nasal Cannula 2.00 09/11/16 06:00 68 09/11/16 04:00 97.7 73 15 115/58 100 09/11/16 04:00 73 09/11/16 02:00 74 09/11/16 00:51 21 09/11/16 00:00 75 09/11/16 00:00 98.3 75 17 109/55 96 09/10/16 22:00 83 09/10/16 20:00 99.1 81 22 134/61 100 09/10/16 20:00 82 09/10/16 19:21 100 Nasal Cannula 2.00 09/10/16 18:00 75 09/10/16 16:00 76 09/10/16 16:00 98.9 77 14 125/58 98 09/10/16 14:00 73 09/10/16 12:00 98.4 76 12 113/53 99 09/10/16 12:00 76 09/10/16 10:53 93 21 (Alexia Curtis) -: 09/11/16 0201 09/11/16 0201 Imaging Last 72 hours Impressions Chest X-Ray 09/10/16 0600 Signed Impressions: Service Date/Time: September 03:51 - CONCLUSION: 1. Increase in right lung base consolidation since September 07. Small effusions. Armando Lynne MD Shunt Study (Imaging) 09/08/16 1137 Signed Impressions: Service Date/Time: Thursday, September 08, 2016 15:46 - CONCLUSION: 1. Complete occlusion of the venous outflow of the dialysis graft. A Vas-Cath is to be placed Nigel Mcfarland MD Tubes & Lines: Vas-Cath (Yaniv Curtison B. OUT [employer] CARE WORKER) Physical Exam General Appearance: Well Developed, Well Nourished, No Acute Distress (Ever,Alexia B. OUT [employer]CHO[employer] HOURS CARE WORKER) Throat Throat Exam: Oral Mucosa [place] & Moist (Ever,Alexia B. OUT OF [employer]CHO[employer] HOURS CARE WORKER) Neck Neck Exam: Neck Supple (Ever,Alexia B. 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 OUT OF SCHOOL HOURS CARE WORKER) Cardiology CV Exam: Regular, Good Perfusion CV Remarks hematoma right chest wall with ecchymosis extending around breast to back, tender to palpation, vascath in right chest graft left chest above breast, + thrill/bruit (Ever,Alexia B. OUT OF SCHO[employer] HOURS CARE WORKER) Gastrointestinal/Abdomen GI Exam: Soft, Non-Tender (EverAlexia B. OUT OF [employer]CHO[employer] HOURS CARE WORKER) Musculoskeletal MS Exam: Joints Intact, Normal Tone (EverAlexia B. OUT OF SCHO[employer] HOURS CARE WORKER) Integumentary Skin Exam: Warm, Dry, Intact (EverAlexia B. OUT OF SCHO[employer] HOURS CARE WORKER) Extremeties Extremities Exam: No Edema, Pedal Pulses Palpable (EverAlexia B. OUT OF SCHOOL HOURS CARE WORKER) Neurologic Neuro Exam: Alert, Awake, Oriented, Speech Clear, Moving All Extremities ( EverAlexia B. OUT OF [employer]CHO[employer] HOURS CARE WORKER) Psychiatric Psych Exam: Appropriate Responses (EverAlexia B. OUT OF [employer]CHOOL HOURS CARE WORKER) Assessment/Plan Discussed Condition With: Patient Assessment Summary: End Stage Renal Disease Problem List: (1) ESRD (end stage renal disease) Plan: M-W- dialysis, she had additional dialysis with 3L UF repeat HD today will use left chest AV graft again today vascath from groin was removed vascath in right subclavian, attempt removal later today by family medicine resident K is acceptable at this time avoid IVF, gadolinium renal panel in am (2) Hematoma, chest wall Plan: monitor, it is resolving now with anemia and consumptive thrombocytopenia, plt transfused yesterday likely developed atelectasis from compression of right lung, given incentive spirometer, encouraged cough/deep breathing (3) Uremia Plan: continue dialysis as above (4) Hypertension Plan: BP improved on clonidine 0.1 BID and losartan 25 BID (5) Metabolic bone disease Plan: on renvela, check phos in am (6) Anemia Plan: hb improved contiue epogen with dialysis given 2 more units PRBC yesterday with dialysis iron profile reviewed (Alexia Curtis) Plan patient was seen and examined. Agree with above assessment and plan. Had dialysis again today. We will continue HD MWF. Evaluate thrombocytopenia. ( Omar Momin MD) Alexia Curtis Sep 11, 2016 10:17 Omar Momin MD Sep 11, 2016 15:10
[2016-09-11 10:37] LABS: HEMATOCRIT 30.9 % (35.0-46.0)
[2016-09-11 10:40] LABS: REVIEW FLAG FINAL
--- NOTE | 2016-09-11 11:38 | HHI.PR ---
Subjective Remarks Follow up ESRD, hematoma. Patient states that she is feeling a little better today. Had a lot of bleeding yesterday with dialysis and removal of Vas-Cath from groin. Objective Vitals Vital Signs Date Time Temp Pulse Resp B/P Pulse Ox O2 Delivery O2 Flow Rate FiO2 09/11/16 08:08 93 Nasal Cannula 2.00 09/11/16 08:00 72 09/11/16 06:00 68 09/11/16 04:00 97.7 73 15 115/58 100 09/11/16 04:00 73 09/11/16 02:00 74 09/11/16 00:51 21 09/11/16 00:00 75 09/11/16 00:00 98.3 75 17 109/55 96 09/10/16 22:00 83 09/10/16 20:00 99.1 81 22 134/61 100 09/10/16 20:00 82 09/10/16 19:21 100 Nasal Cannula 2.00 09/10/16 18:00 75 09/10/16 16:00 76 09/10/16 16:00 98.9 77 14 125/58 98 09/10/16 14:00 73 09/10/16 12:00 98.4 76 12 113/53 99 09/10/16 12:00 76 I/O 09/10/16 09/10/16 09/10/16 09/11/16 09/11/16 09/11/16 07:00 15:00 23:00 07:00 15:00 23:00 Intake Total 480 ml 240 ml 300 ml 240 ml Output Total 20 ml 3000 ml 20 ml Balance 460 ml -2760 ml 300 ml 220 ml Intake Oral 480 ml 240 ml 300 ml 240 ml Output Urine Total 20 ml 20 ml Hemodialysis 3000 ml Bladder Scan Volume Amount 140 ml 50 ml 15 ml 30 ml Result Diagram: 09/11/16 1015 09/11/16 0201 Imaging Last Impressions Chest X-Ray 09/10/16 0600 Signed Impressions: Service Date/Time: September 03:51 - CONCLUSION: 1. Increase in right lung base consolidation since September 07. Small effusions. Armando Lynne MD Shunt Study (Imaging) 09/08/16 1137 Signed Impressions: Service Date/Time: Thursday, September 08, 2016 15:46 - CONCLUSION: 1. Complete occlusion of the venous outflow of the dialysis graft. A Vas-Cath is to be placed Nigel Mcfarland MD Chest CT 09/08/16 0000 Signed Impressions: Service Date/Time: Thursday, September 08, 2016 22:24 - CONCLUSION: 1. Status post right Vas-Cath placement but with large hematoma in the right anterior chest wall measuring up to about 12.9 x 1.5 cm. No mediastinal hematoma. 2. Small to moderate right pleural effusion with consolidation and atelectasis of the right posterior lung. Trace left pleural fluid and left basilar atelectasis. 3. Moderate anasarca. No pericardial effusion. Armando Lynne MD Catheter Placement X-Ray 09/08/16 0000 Signed Impressions: Service Date/Time: Thursday, September 08, 2016 15:46 - CONCLUSION: Uncomplicated line placement as above. Nigel Mcfarland MD Head CT 09/07/16 0000 Signed Impressions: Service Date/Time: Thursday, September 08, 2016 12:23 - CONCLUSION: 1. Punctate high density in the roof of third ventricle may be related to colloid cyst versus less likely punctate hemorrhage. 2. No acute abnormality. Shilo Sher MD Objective Remarks General: No acute distress. Sitting up in a chair. Heart: Regular rate and rhythm. 2/6 murmur. Chest wall: Hematoma improved. Lungs: Clear to auscultation bilaterally. No wheezes, rales, or rhonchi. Breathing is nonlabored. Abdomen: Soft, nontender, nondistended. Extremities: No lower extremity edema. Psych: Alert and oriented. Procedures 09/08/16 Vas-Cath placement Urinary Catheter: No Vascular Central Line Catheter: No A/P Problem List: (1) ESRD (end stage renal disease) ICD Code: N18.6 Status: Chronic (2) Uremia ICD Code: N19 Status: Acute (3) Tremor of both hands ICD Code: R25.1 Status: Acute (4) Cough ICD Code: R05 Status: Chronic (5) Bipolar 1 disorder, depressed ICD Code: F31.9 Status: Chronic (6) Hematoma, chest wall ICD Code: S20.219A Status: Resolved (7) Thrombocytopenia ICD Code: D69.6 Status: Acute (8) Anemia ICD Code: D64.9 Status: Acute Assessment and Plan 1. Chest wall hematoma: Improved. Plavix, heparin on hold. H&H has been stable. 2. Thrombocytopenia, anemia: Platelets have been trending down. She had significant bleeding following removal of groin Vas-Cath yesterday. Has received 2 units PRBCs during this hospitalization. S/P platelet pheresis 1 unit yesterday. Consult hematology. 3. End-stage renal disease: Hemodialysis per nephrology. Vas-Cath placed by interventional radiology. 4. COPD: Continue duo nebs. 5. Hypertension: Continue clonidine, hydralazine. 6. Bipolar disorder: Continue Lexapro. Ativan as needed. 7. GI prophylaxis: Protonix. 8. DVT prophylaxis: KOREY Garcia. Avoid chemical prophylaxis secondary to hematoma, anemia, thrombocytopenia. Marco Antonio Tracy MD Sep 11, 2016 11:38
[2016-09-11] MEDS: GELATIN 12 MM/7 MM FOAM TOP PRN (13:12)
[2016-09-11] MEDS: SODIUM CHLOR 0.9% 1000 ML INJ 1,000 ML IV PRN (13:13)
[2016-09-11 21:25] LABS: HEMATOCRIT 28.3 % (35.0-46.0)
[2016-09-11 21:31] LABS: REVIEW FLAG FINAL
[2016-09-12] VITALS (11 sets, daily range): BP systolic 137–164; BP diastolic 65–74; PULSE 70–88; RESP 19–22; TEMP 97.6–101.1; O2SAT 92–98
[2016-09-12 07:22] LABS: AUTOMATED NEUTROPHIL # 3.7 TH/MM3 (1.8-7.7); BASOPHIL % 0.5 % (0.0-2.0); EOSINOPHIL % 0.1 % (0.0-4.0); HEMATOCRIT 28.6 % (35.0-46.0); LYMPH % 8.5 % (9.0-44.0); LYMPHOCYTE # 0.4 TH/MM3 (1.0-4.8); MEAN CELL VOLUME 87.6 FL (80.0-100.0); MEAN CORPUSCULAR HEMOGLOBIN 28.9 PG (27.0-34.0); MONO % 16.6 % (0.0-8.0); NEUT % 74.3 % (16.0-70.0); PLATELET COUNT 81 TH/MM3 (150-450); RED BLOOD COUNT 3.26 MIL/MM3 (4.00-5.30); RED CELL DISTRIBUTION WIDTH 15.9 % (11.6-17.2)
[2016-09-12 07:31] LABS: HEMO FLAGS AUTO DIFF
[2016-09-12 07:41] LABS: BICARBONATE 29.3 MEQ/L (21.0-32.0)
--- NOTE | 2016-09-12 09:26 | HHI.PR ---
Subjective Remarks Follow up thrombocytopenia, anemia, ESRD. Patient states that she feels better. Still with dyspnea on exertion. Feels weak overall. No chest pain. No bleeding. Objective Vitals Vital Signs Date Time Temp Pulse Resp B/P Pulse Ox O2 Delivery O2 Flow Rate FiO2 09/12/16 08:03 98.7 80 22 159/74 94 09/12/16 04:00 99.3 82 19 143/68 95 09/12/16 00:50 76 09/12/16 00:21 93 09/12/16 00:00 97.6 78 19 140/66 94 09/11/16 22:13 13 09/11/16 22:00 76 09/11/16 20:00 99.1 85 27 166/70 98 09/11/16 20:00 84 09/11/16 19:35 94 21 09/11/16 18:00 85 09/11/16 16:00 88 09/11/16 16:00 98.3 88 15 148/67 94 09/11/16 14:00 87 09/11/16 12:00 98.1 81 15 138/65 94 09/11/16 12:00 81 09/11/16 10:00 70 I/O 09/11/16 09/11/16 09/11/16 09/12/16 09/12/16 09/12/16 07:00 15:00 23:00 07:00 15:00 23:00 Intake Total 240 ml 480 ml 300 ml 240 ml Output Total 20 ml 1100 ml 25 ml Balance 220 ml 480 ml -800 ml 215 ml Intake Oral 240 ml 480 ml 300 ml 240 ml Output Urine Total 20 ml 100 ml 25 ml Hemodialysis 1000 ml Bladder Scan Volume Amount 15 ml 33 ml 20 ml # Voids 1 Result Diagram: 09/12/16 0600 09/12/16 0607 Imaging Last Impressions Chest X-Ray 09/10/16 06 Signed Impressions: Service Date/Time: September 03:51 - CONCLUSION: 1. Increase in right lung base consolidation since September 07. Small effusions. Armando Lynne MD Shunt Study (Imaging) 09/08/16 1137 Signed Impressions: Service Date/Time: Thursday, September 08, 2016 15:46 - CONCLUSION: 1. Complete occlusion of the venous outflow of the dialysis graft. A Vas-Cath is to be placed Nigel B. Turetsky, MD Chest CT 09/08/16 0000 Signed Impressions: Service Date/Time: Thursday, September 08, 2016 22:24 - CONCLUSION: 1. Status post right Vas-Cath placement but with large hematoma in the right anterior chest wall measuring up to about 12.9 x 1.5 cm. No mediastinal hematoma. 2. Small to moderate right pleural effusion with consolidation and atelectasis of the right posterior lung. Trace left pleural fluid and left basilar atelectasis. 3. Moderate anasarca. No pericardial effusion. Armando Lynne MD Catheter Placement X-Ray 09/08/16 0000 Signed Impressions: Service Date/Time: Thursday, September 08, 2016 15:46 - CONCLUSION: Uncomplicated line placement as above. Nigel Mcfarland MD Head CT 09/07/16 0000 Signed Impressions: Service Date/Time: Thursday, September 08, 2016 12:23 - CONCLUSION: 1. Punctate high density in the roof of third ventricle may be related to colloid cyst versus less likely punctate hemorrhage. 2. No acute abnormality. Shilo Sher MD Objective Remarks General: No acute distress. Heart: Regular rate and rhythm. 2/6 murmur. Chest wall: Hematoma improved. Lungs: Clear to auscultation bilaterally. No wheezes, rales, or rhonchi. Breathing is nonlabored. Abdomen: Soft, nontender, nondistended. Extremities: No lower extremity edema. Psych: Alert and oriented. Procedures 09/08/16 Vas-Cath placement Urinary Catheter: No Vascular Central Line Catheter: No A/P Problem List: (1) ESRD (end stage renal disease) ICD Code: N18.6 Status: Chronic (2) Uremia ICD Code: N19 Status: Acute (3) Tremor of both hands ICD Code: R25.1 Status: Acute (4) Cough ICD Code: R05 Status: Chronic (5) Bipolar 1 disorder, depressed ICD Code: F31.9 Status: Chronic (6) Hematoma, chest wall ICD Code: S20.219A Status: Resolved (7) Thrombocytopenia ICD Code: D69.6 Status: Acute (8) Anemia ICD Code: D64.9 Status: Acute Assessment and Plan 1. Chest wall hematoma: Improved. Plavix, heparin on hold. H&H has been stable. 2. Thrombocytopenia, anemia: Platelets have been trending down. Has received 2 units PRBCs and 1 unit of platelets during this hospitalization. Platelets trending up. Hematology consult is pending. No significant bleeding following removal of Vas-Cath yesterday. 3. End-stage renal disease: Hemodialysis per nephrology. 4. COPD: Continue duo nebs. 5. Hypertension: Continue clonidine, hydralazine. 6. Bipolar disorder: Continue Lexapro. Ativan as needed. 7. GI prophylaxis: Protonix. 8. DVT prophylaxis: LONGsKOREY. Avoid chemical prophylaxis secondary to hematoma, anemia, thrombocytopenia. Discharge Planning Plan for discharge home with home health PT when cleared by nephrology and arrangements are made. Marco Antonio Tracy MD Sep 12, 2016 09:26
[2016-09-12 09:27] LABS: PLATELET ESTIMATE SMEAR LOW (NORMAL); PLATELET MORPHOLOGY NORMAL (NORMAL); SCAN/DIFF AUTO DIFF CONFIRMED
--- NOTE | 2016-09-12 09:47 | HHI.FF ---
Face to Face Verification Diagnosis: (1) ESRD (end stage renal disease) (2) Hypertension (3) Emphysema lung (4) Thrombocytopenia (5) Hematoma, chest wall (6) Anemia Physical Therapy Order: Evaluate and Treat Home Health Nursing Order: Nursing assessment with vital signs I have seen patient Deborah Cheema on 09/12/16. My clinical findings support the need for the requested home health care services because: Patient has SOB I certify that my clinical findings support that this patient is homebound because: Hx COPD- exertion dyspnea/weakness Marco Antonio Tracy MD Sep 12, 2016 09:47
[2016-09-12] MEDS: ALLOPURINOL 100 MG TAB PO SCH (10:25)
[2016-09-12] MEDS: GABAPENTIN 100 MG CAP PO SCH (10:25)
[2016-09-12] MEDS: METOCLOPRAMIDE HCL 10 MG TAB PO SCH ×3 (10:25→17:20)
[2016-09-12] MEDS: PANTOPRAZOLE SOD 20 MG DELAYED RELEASE TAB PO SCH (10:25)
[2016-09-12] MEDS: BUDESONIDE-FORMOTEROL 160/4.5 MCG INHALER INH SCH ×2 (10:25→19:46)
[2016-09-12] MEDS: ESCITALOPRAM OXALATE 10 MG TAB PO SCH (10:25)
[2016-09-12] MEDS: SEVELAMER CARBONATE 800 MG TAB PO SCH ×3 (10:26→17:20)
[2016-09-12] MEDS: VITAMIN B CMPLX/VITC/FOLIC AC CAP PO SCH (10:26)
[2016-09-12] MEDS: DOCUSATE SODIUM 100 MG CAP PO SCH ×2 (10:26→19:46)
[2016-09-12] MEDS: cloNIDine HCL 0.1 MG TAB PO SCH ×2 (10:26→19:46)
[2016-09-12] MEDS: ACETAMINOPHEN/HYDROcodone 325 MG/5 MG TAB PO PRN (10:34)
[2016-09-12] MEDS: LOSARTAN 25 MG TAB PO SCH ×2 (12:43→19:46)
[2016-09-12] MEDS: cefTRIAXone INJ 1,000 MG in SODIUM CHLORIDE 0.9% INJ 100 ML IV SCH (12:43)
--- NOTE | 2016-09-12 12:45 | HHI.NPPN ---
Subjective General Problems: Anemia Renal Failure: Chronic, End Stage Renal Disease Review of Systems General Constitutional: Fatigue Heme-Lymph Heme-Lymph: Bleeding Objective Data Data 09/11/16 09/12/16 19:00 07:00 Intake Total 480 ml 540 ml Output Total 1000 ml 125 ml Balance -520 ml 415 ml Intake Oral 480 ml 540 ml Output Urine Total 125 ml Hemodialysis 1000 ml Bladder Scan Volume Amount 33 ml 20 ml Vital Signs Date Time Temp Pulse Resp B/P Pulse Ox O2 Delivery O2 Flow Rate FiO2 09/12/16 11:45 101.1 09/12/16 10:13 94 21 09/12/16 08:03 98.7 80 22 159/74 94 09/12/16 04:00 99.3 82 19 143/68 95 09/12/16 00:50 76 09/12/16 00:21 93 09/12/16 00:00 97.6 78 19 140/66 94 09/11/16 22:13 13 09/11/16 22:00 76 09/11/16 20:00 99.1 85 27 166/70 98 09/11/16 20:00 84 09/11/16 19:35 94 21 09/11/16 18:00 85 09/11/16 16:00 88 09/11/16 16:00 98.3 88 15 148/67 94 09/11/16 14:00 87 -: 09/12/16 0600 09/12/16 0607 Tubes & Lines: Vas-Cath Physical Exam General Appearance: Well Developed, Well Nourished, No Acute Distress Throat Throat Exam: Oral Mucosa [place] & Moist Neck Neck Exam: Neck Supple Pulmonary Resp Exam: Breath Sounds Equal, No Distress Cardiology CV Exam: Regular, Good Perfusion Gastrointestinal/Abdomen GI Exam: Soft, Non-Tender Musculoskeletal MS Exam: Joints Intact, Normal Tone Integumentary Skin Exam: Warm, Dry, Intact Extremeties Extremities Exam: No Edema, Pedal Pulses Palpable Neurologic Neuro Exam: Alert, Awake, Oriented, Speech Clear, Moving All Extremities Psychiatric Psych Exam: Appropriate Responses Assessment/Plan Discussed Condition With: Patient Assessment Summary: End Stage Renal Disease Problem List: (1) ESRD (end stage renal disease) Plan: M-W-F dialysis, she had additional dialysis yesterday 1L UF has use left chest AV graft vascath from groin was removed vascath in right subclavian, removed K is acceptable at this time avoid IVF, gadolinium (2) Hematoma, chest wall Plan: monitor, it is resolving now with anemia and consumptive thrombocytopenia, plt transfused yesterday likely developed atelectasis from compression of right lung, given incentive spirometer, encouraged cough/deep breathing (3) Uremia Plan: continue dialysis as above (4) Hypertension Plan: BP improved on clonidine 0.1 BID and losartan 25 BID (5) Metabolic bone disease Plan: on renvela, check phos in am (6) Anemia Plan: hb improved contiue epogen with dialysis given 2 more units PRBC yesterday with dialysis iron profile reviewed Naseem Valentin MD Sep 12, 2016 12:45 Naseem Valentin MD Sep 12, 2016 12:45
--- NOTE | 2016-09-12 12:58 | MB ---
cc: SERG VINSON M.D., ZAFAR MD DATE OF CONSULTATION: 09/12/2016. REASON FOR CONSULTATION: Thrombocytopenia and anemia in the setting of a patient on chronic hemodialysis with vascular access issues including clotting of the AV fistula in the left upper extremity. REQUESTING PHYSICIAN: The hospitalist physicians. CHIEF COMPLAINT: "I feel hot". Ms. Cheema elaborates and reports having felt unwell for about a [id number]. She reports missing outpatient dialysis visits and came into the hospital because she felt generally unwell. HISTORY OF PRESENT ILLNESS: Ms. Cheema is a 51-year-old female who reportedly has been on hemodialysis for ten to eleven years. She presently receives outpatient hemodialysis in [facility]. Her primary hand i cutter is Dr. Serg Vinson. The patient is not aware why she requires hemodialysis; i.e., she not certain what caused her renal failure. She does report having a history of hypertension but denies having diabetes or mixed connective tissue disorders. After admission to [facility] on 09/07/2016, she was evaluated with empiric blood work. At admission, the patient had normal hemoglobin and hematocrit levels as well as normal platelet counts. The following day however, her hemoglobin dropped down to 7.9 gm/dL from a presenting level of 12.7. Her platelet counts dropped from 153 down to 101. What was discovered in the interim was malfunctioning of her AV fistula in the right upper extremity. She underwent that night an ultrasound-guided placement of a right chest wall catheter. This was complicated by a fairly large hematoma and the subcutaneous tissue along the right chest wall in the infraclavicular area. The patient unfortunately continued to have oozing from that catheter. She subsequently underwent a right femoral vein dialysis catheter placement. This was put in and then removed. It was removed because it was bleeding. Over the course of hospitalization, the patient's platelet counts dipped from a presenting level of 153,000 down to 46,000. She required platelet transfusion on 09/10/2016, which is when her platelets were at the ron. Over the course of the past three days, her platelet counts have increased from 46,000 to 56,000 to 81,000 as of today. Her hemoglobin has remained stable but she has required multiple units of packed red blood cells. The oncology service has been consulted for further workup and management of thrombocytopenia. PAST MEDICAL HISTORY: 1. Hypertension. 2. Hemodialysis for the past eleven years. 3. She reports chronic hoarseness of the voice. 4. She reports tobaccoism. PAST SURGICAL HISTORY: 1. Three sections. 2. AV fistula creation in the left forearm. 3. Placement and removal of a tunnelled dialysis catheter in the right chest wall. 4. Placement and removal of a femoral vein dialysis catheter. ALLERGIES: NO KNOWN DRUG ALLERGIES. FAMILY HISTORY: I attempted to obtain a family history; the patient tells me she does not wish to talk about it. She tells me her mother of natural causes and her father is living. She reports a sister had some form of cancer. SOCIAL HISTORY: The patient lives at home with a niece. She is originally from [place]. She is disabled. She reports being a smoker. CURRENT INPATIENT MEDICATIONS: 1. Ceftriaxone 1 gram IV q. 24. 2. Sodium chloride 200 cc/hour. 3. Tylenol / hydrocodone 325 / 5 milligrams p.o. q. 4 hours as needed for pain. 4. Albumin 25 milligrams IV as needed with dialysis. 5. Allopurinol 100 milligrams p.o. daily. 6. Benztropine 2 milligrams p.o. q. 12 hours. 7. Sensipar 60 milligrams daily. 8. Clonidine 0.1 milligrams p.o. q. 6 hours as needed for hypertension. 9. Plavix 75 milligrams p.o. daily (on hold). 10. Lexapro 10 milligrams p.o. daily. 11. Gabapentin 10 milligrams p.o. daily. 12. Heparin 5000 units subcutaneous q. 24 hours on hold. 13. Lorazepam 1 milligram p.o. q. 4 hours as needed for severe anxiety. 14. Metoclopramide 5 milligrams p.o. three times a day a.c. 15. Zofran 4 milligrams IV q. 6 hours as needed for nausea and vomiting. 16. Pantoprazole 20 milligrams daily. 17. Senokot. 18. Renvela 800 milligrams p.o. three times a day. 19. Trazodone 100 milligrams p.o. at bedtime. 20. Geodon 80 milligrams p.o. twice a day. REVIEW OF SYSTEMS: A thirteen-point review of systems is obtained: CONSTITUTIONAL: The patient reports generally feeling fatigued, weak, sweaty, warm at the present time. She reports poor appetite. HEAD, EYES, EARS, NOSE, THROAT: Denies headaches. Reports blurry vision, reports dizziness when she stands. RESPIRATORY: Reports difficulty breathing with exertion. She denies cough or hemoptysis. She reports her voice has been hoarse chronically. CARDIOVASCULAR: Denies angina-like chest pain, PND, orthopnea. Denies lower extremity swelling. GI: Denies nausea, vomiting, diarrhea, hematochezia, melena. : No complaints. MATTRESS STUFFER: Reports jittery movements of the arms and legs. MUSCULOSKELETAL: Reports having had pain and swelling along the right chest wall above her breast and below her clavicle. No other complaints. PHYSICAL EXAMINATION: VITAL SIGNS: Temperature 101 degrees Fahrenheit at 11:30 a.m., heart rate 80 beats per minute, respiratory rate 22, blood pressure 159/74, O2 sats 94% on room air. GENERAL PHYSICAL APPEARANCE: Ms. Cheema is a middle-aged female. She appears to be much older than her stated age. She appears to be chronically ill, she has a very hoarse voice and has a cushingoid appearance. HEAD, EYES, EARS, NOSE, THROAT: Head is atraumatic and normocephalic. Conjunctivae are mildly pale. Sclerae are anicteric. Extraocular muscles intact. Pupils equal, round and reactive to light and accommodation. ORAL EXAM: She has no teeth of her own. She has no pharyngeal erythema. No mouth sores or ulcers. NECK EXAM: No palpable cervical or supraclavicular lymphadenopathy. RESPIRATORY EXAM: Decreased bibasilar breath sounds. Scattered crepitus. CARDIOVASCULAR EXAM: Regular rate and rhythm. S1, S2 with a loud systolic murmur heard over the left lower sternal border. This radiates to the aortic and the pulmonic areas as well. The murmur is almost a mechanical nature. ABDOMINAL EXAM: Protuberant belly. The abdomen is soft, nontender and nondistended. No palpable organ enlargement. LOWER EXTREMITIES: No pretibial edema. No calf tenderness. CHEST WALL: She has a bandage in place over the left chest wall. There is no obvious bruising. There is a resolving hematoma. INGUINAL AREA: The inguinal area was also examined in the presence of a nurse coning machine operator: There appears to be a bandage in the right inguinal area. No overt or active bleeding is identified. MATTRESS STUFFER: No focal sensory or motor deficits. MUSCULOSKELETAL: Generally decreased muscle mass and tone. LABORATORY FINDINGS: Dated 09/09/2016: PT 12.2, INR 1.1, PTT 33 seconds. CBC dated 09/12/2016: WBC count 5, hemoglobin 9.4 gm/dL, hematocrit 28.6%, platelet count 81,000, absolute neutrophil count 37. Chemistries: Sodium 131, potassium 4, chloride 91, bicarbonate 29.3, BUN 15, creatinine 4.35, random glucose 112, calcium 8.9. Serum iron level noted to be 32, TIBC low at 44, percent iron saturation 22%, albumin 3.1. IMAGING STUDIES: CT scan of the thorax dated 08/19/2016 performed a 10:24 p.m.: Status post Vas-Cath placement along the right chest wall. Large hematoma in the right anterior chest wall measuring 12.9 cm. No mediastinal hematoma. Small to moderate right-sided pleural effusion with consolidation and atelectasis of the right posterior lung. Moderate anasarca. No pericardial effusion. Shunt study dated 09/08/2016: 1. Complete occlusion of the venous outflow of the dialysis graft. A Vas-Cath has been placed. ASSESSMENT: Ms. Cheema is a 51-year year old female with a history of chronic renal failure requiring hemodialysis, she has been on hemodialysis for the past 10 or 11 years. She has a history of hypertension and is also an active smoker. She presented to the hospital with complaints of malaise and feeling "unwell". She had missed outpatient hemodialysis sessions and upon presentation was noted to have complete occlusion of the left arm AV fistula. She did undergo at the time of admission placement of a tunneled Vas-Cath in the right chest wall. It should be noted the patient had been on Plavix prior to her admission. She developed a significant hematoma with resultant drop in hemoglobin, hematocrit and platelet levels. The patient subsequently had the tunneled catheter in the right chest wall removed because it was bleeding. A second catheter was placed in her groin on the right side. This too bled and this was removed within 24 to 48 hours of being placed. Over the course of hospitalization, the patient has required platelet transfusions as well as red cell transfusions. The hematology service has been consulted for further workup and management of thrombocytopenia. RECOMMENDATIONS: 1. Thrombocytopenia and anemia: These appear mostly to be consumptive secondary to the bleeding she experienced following the dialysis catheter placement. I suspect she likely has underlying platelet dysfunction secondary to both treatment with Plavix as well as uremia. Additionally, at the time of my visit today she was febrile with a temperature of 101 degrees Fahrenheit. She may be getting septic which will cause additional platelet consumption due to uncontrolled thrombin activation. RECOMMENDATIONS: 1. For management of the patient's thrombocytopenia, I would at this point recommend continue to hold Plavix. I would recommend supportive care. I would recommend checking a platelet functional assay before she undergoes any additional invasive procedures and if her platelet functional assay is abnormal; i.e., there is drug effect, she ought to get platelet transfusion before any procedure. It is encouraging however to note the patient is not overtly bleeding at this time. I do not think ordering an HIT panel is necessary at this time because individuals who are on chronic dialysis have a high incidence of false HIT-positives. We, in this scenario, have a satisfactory explanation for the thrombocytopenia. The hematology service will follow along with you. MD KEESHA Turner/NOREEN /11:47 AM /12:30 PM
[2016-09-12] MEDS: CINACALCET HYDROCHLORIDE 30 MG TAB PO SCH (13:47)
[2016-09-12] MEDS ORDERED: diphenhydrAMINE HCL 25 MG CAP PO ONE (20:45)
[2016-09-12 20:56] LABS: BLOOD, URINE NEG (NEG); GLUCOSE,URINE 70 mg/dL (NEG); KETONE, URINE NEG (NEG); NITRITE,URINE NEG (NEG); PH, URINE 8.5 (5.0-8.5); URINE COLOR YELLOW (YELLW/STRAW)
[2016-09-12 20:58] LABS: COMMENT (UR) CULT NOT INDICATED; CULTURE IF INDICATED CULT NOT INDICATED
[2016-09-12] MEDS: LORazepam 1 MG TAB PO PRN (21:28)
[2016-09-13] VITALS (9 sets, daily range): BP systolic 107–141; BP diastolic 49–62; PULSE 62–74; RESP 18–22; TEMP 96.1–99.3; O2SAT 93–100
[2016-09-13] MEDS: ACETAMINOPHEN/HYDROcodone 325 MG/5 MG TAB PO PRN ×2 (03:02→21:38)
--- NOTE | 2016-09-13 05:11 | RADRPT ---
EXAM DATE/TIME: 09/13/2016 04:09 [place] COMPARISON: CT THORAX W/O CONTRAST, September 08, 2016, 22:24. CHEST SINGLE AP, September 10, 2016, 3:51. INDICATIONS : Shortness of breath, possible pulmonary disease. MEDICAL HISTORY : Chronic obstructive pulmonary disease. SURGICAL HISTORY : Vascath ENCOUNTER: Subsequent ACUITY: 1 week PAIN SCORE: 0/10 LOCATION: Bilateral chest FINDINGS: Right base pleural-parenchymal opacity is again noted. Left lung is stable and grossly clear. Heart s ize is stable. CONCLUSION: Little change accounting for projection Augustin Hernandez MD on September 13, 2016 at 5:08 Board Certified Radiologist. This report was verified electronically.
--- NOTE | 2016-09-13 08:00 | HHI.PR ---
Subjective Remarks Follow up fever, anemia, thrombocytopenia. No complaints at this time. Concerned about fever and lack of dialysis catheter. Objective Vitals Vital Signs Date Time Temp Pulse Resp B/P Pulse Ox O2 Delivery O2 Flow Rate FiO2 09/13/16 04:00 98.6 74 18 141/62 96 09/13/16 00:00 99.3 67 18 126/55 98 09/12/16 20:39 98 Nasal Cannula 2.00 09/12/16 20:00 99.1 81 19 155/69 95 09/12/16 20:00 70 09/12/16 16:00 97.6 88 22 164/73 93 09/12/16 12:45 99.3 84 20 137/65 92 09/12/16 11:45 101.1 09/12/16 10:13 94 21 09/12/16 08:03 98.7 80 22 159/74 94 I/O 09/12/16 09/12/16 09/12/16 09/13/16 09/13/16 09/13/16 07:00 15:00 23:00 07:00 15:00 23:00 Intake Total 240 ml 600 ml 720 ml 240 ml Output Total 25 ml 100 ml Balance 215 ml 600 ml 720 ml 140 ml Intake Oral 240 ml 600 ml 720 ml 240 ml Output Urine Total 25 ml 100 ml # Voids 1 1 Result Diagram: 09/12/16 0600 09/12/16 0607 Imaging Last Impressions Chest X-Ray 09/13/16 0600 Signed Impressions: Service Date/Time: Tuesday, September 13, 2016 04:09 - CONCLUSION: Little change accounting for projection Augustin Hernandez MD Shunt Study (Imaging) 09/08/16 1137 Signed Impressions: Service Date/Time: Thursday, September 08, 2016 15:46 - CONCLUSION: 1. Complete occlusion of the venous outflow of the dialysis graft. A Vas-Cath is to be placed Nigel Mcfarland MD Chest CT 09/08/16 0000 Signed Impressions: Service Date/Time: Thursday, September 08, 2016 22:24 - CONCLUSION: 1. Status post right Vas-Cath placement but with large hematoma in the right anterior chest wall measuring up to about 12.9 x 1.5 cm. No mediastinal hematoma. 2. Small to moderate right pleural effusion with consolidation and atelectasis of the right posterior lung. Trace left pleural fluid and left basilar atelectasis. 3. Moderate anasarca. No pericardial effusion. Armando Lynne MD Catheter Placement X-Ray 09/08/16 0000 Signed Impressions: Service Date/Time: Thursday, September 08, 2016 15:46 - CONCLUSION: Uncomplicated line placement as above. Nigel Mcfarland MD Head CT 09/07/16 0000 Signed Impressions: Service Date/Time: Thursday, September 08, 2016 12:23 - CONCLUSION: 1. Punctate high density in the roof of third ventricle may be related to colloid cyst versus less likely punctate hemorrhage. 2. No acute abnormality. Shilo Sher MD Objective Remarks General: No acute distress. Heart: Regular rate and rhythm. 2/6 murmur. Chest wall: Hematoma improved. Skin: Ecchymosis on right upper back, right chest wall, and right arm. Lungs: Clear to auscultation bilaterally. No wheezes, rales, or rhonchi. Breathing is nonlabored. Abdomen: Soft, nontender, nondistended. Extremities: No lower extremity edema. Psych: Alert and oriented. Procedures 09/08/16 Vas-Cath placement Urinary Catheter: No Vascular Central Line Catheter: No A/P Problem List: (1) ESRD (end stage renal disease) ICD Code: N18.6 Status: Chronic (2) Uremia ICD Code: N19 Status: Acute (3) Tremor of both hands ICD Code: R25.1 Status: Acute (4) Cough ICD Code: R05 Status: Chronic (5) Bipolar 1 disorder, depressed ICD Code: F31.9 Status: Chronic (6) Hematoma, chest wall ICD Code: S20.219A Status: Resolved (7) Thrombocytopenia ICD Code: D69.6 Status: Acute (8) Anemia ICD Code: D64.9 Status: Acute Assessment and Plan 1. Chest wall hematoma: Improved. Plavix, heparin on hold. H&H has been stable. 2. Thrombocytopenia, anemia: Platelets have been trending down. Has received 2 units PRBCs and 1 unit of platelets during this hospitalization. Platelets trending up. Appreciate hematology recommendations. Thrombocytopenia is likely secondary to consumptive process with bleeding and hematoma, as well as medication effect from Plavix. Labs are pending today. 3. End-stage renal disease: Hemodialysis per nephrology. 4. COPD: Continue duo nebs. 5. Hypertension: Continue clonidine, hydralazine. 6. Bipolar disorder: Continue Lexapro. Ativan as needed. 7. GI prophylaxis: Protonix. 8. Fever, pneumonia: Continue antibiotics, Rocephin and azithromycin. The patient was afebrile overnight. 9. DVT prophylaxis: SCDs, [place]. Avoid chemical prophylaxis secondary to hematoma, anemia, thrombocytopenia. Marco Antonio Tracy MD Sep 13, 2016 08:00 Marco Antonio Tracy MD Sep 13, 2016 08:00
[2016-09-13 08:14] LABS: AUTOMATED NEUTROPHIL # 2.4 TH/MM3 (1.8-7.7); BASOPHIL % 0.9 % (0.0-2.0); EOSINOPHIL % 0.2 % (0.0-4.0); HEMATOCRIT 29.6 % (35.0-46.0); LYMPH % 18.3 % (9.0-44.0); LYMPHOCYTE # 0.7 TH/MM3 (1.0-4.8); MEAN CELL VOLUME 86.8 FL (80.0-100.0); MEAN CORPUSCULAR HEMOGLOBIN 28.7 PG (27.0-34.0); MONO % 16.7 % (0.0-8.0); NEUT % 63.9 % (16.0-70.0); PLATELET COUNT 96 TH/MM3 (150-450); RED BLOOD COUNT 3.41 MIL/MM3 (4.00-5.30); RED CELL DISTRIBUTION WIDTH 15.6 % (11.6-17.2); WHITE BLOOD COUNT 3.8 TH/MM3 (4.0-11.0)
[2016-09-13 08:20] LABS: HEMO FLAGS AUTO DIFF
[2016-09-13 08:38] LABS: BICARBONATE 28.9 MEQ/L (21.0-32.0); POTASSIUM 4.7 MEQ/L (3.5-5.1)
[2016-09-13 08:50] LABS: PLATELET ESTIMATE SMEAR LOW (NORMAL); PLATELET MORPHOLOGY NORMAL (NORMAL); SCAN/DIFF AUTO DIFF CONFIRMED
[2016-09-13] MEDS: SEVELAMER CARBONATE 800 MG TAB PO SCH ×3 (09:19→16:34)
[2016-09-13] MEDS: GABAPENTIN 100 MG CAP PO SCH (09:19)
[2016-09-13] MEDS: METOCLOPRAMIDE HCL 10 MG TAB PO SCH ×3 (09:20→16:34)
[2016-09-13] MEDS: CINACALCET HYDROCHLORIDE 30 MG TAB PO SCH (09:20)
[2016-09-13] MEDS: VITAMIN B CMPLX/VITC/FOLIC AC CAP PO SCH (09:20)
[2016-09-13] MEDS: AZITHROMYCIN 250 MG TAB PO SCH (09:20)
[2016-09-13] MEDS: LOSARTAN 25 MG TAB PO SCH ×2 (09:20→21:37)
[2016-09-13] MEDS: ESCITALOPRAM OXALATE 10 MG TAB PO SCH (09:20)
[2016-09-13] MEDS: DOCUSATE SODIUM 100 MG CAP PO SCH ×2 (09:20→21:36)
[2016-09-13] MEDS: ALLOPURINOL 100 MG TAB PO SCH (09:20)
[2016-09-13] MEDS: PANTOPRAZOLE SOD 20 MG DELAYED RELEASE TAB PO SCH (09:20)
[2016-09-13] MEDS: cloNIDine HCL 0.1 MG TAB PO SCH ×2 (09:21→21:37)
[2016-09-13] MEDS: BUDESONIDE-FORMOTEROL 160/4.5 MCG INHALER INH SCH ×2 (09:24→21:39)
--- NOTE | 2016-09-13 14:14 | HHI.NPPN ---
Subjective General Problems: Anemia Renal Failure: Chronic, End Stage Renal Disease Review of Systems General Constitutional: Fatigue Heme-Lymph Heme-Lymph: Bleeding Objective Data Data 09/12/16 09/13/16 19:00 07:00 Intake Total 840 ml 720 ml Output Total 100 ml Balance 840 ml 620 ml Intake Oral 840 ml 720 ml Output Urine Total 100 ml # Voids 2 Vital Signs Date Time Temp Pulse Resp B/P Pulse Ox O2 Delivery O2 Flow Rate FiO2 09/13/16 11:15 97.1 64 22 107/49 93 09/13/16 09:37 99 Nasal Cannula 2.00 09/13/16 08:00 97.6 62 22 140/57 100 09/13/16 04:00 98.6 74 18 141/62 96 09/13/16 00:00 99.3 67 18 126/55 98 09/12/16 20:39 98 Nasal Cannula 2.00 09/12/16 20:00 99.1 81 19 155/69 95 09/12/16 20:00 70 09/12/16 16:00 97.6 88 22 164/73 93 -: 09/13/16 0700 09/13/16 0700 Microbiology 09/12/16 Aerobic Blood Culture - Preliminary, Resulted NO GROWTH IN 1 DAY 09/12/16 Anaerobic Blood Culture - Preliminary, Resulted NO GROWTH IN 1 DAY Tubes & Lines: Vas-Cath Physical Exam General Appearance: Well Developed, Well Nourished, No Acute Distress Throat Throat Exam: Oral Mucosa [place] & Moist Neck Neck Exam: Neck Supple Pulmonary Resp Exam: Breath Sounds Equal, No Distress Cardiology CV Exam: Regular, Good Perfusion Gastrointestinal/Abdomen GI Exam: Soft, Non-Tender Musculoskeletal MS Exam: Joints Intact, Normal Tone Integumentary Skin Exam: Warm, Dry, Intact Extremeties Extremities Exam: No Edema, Pedal Pulses Palpable Neurologic Neuro Exam: Alert, Awake, Oriented, Speech Clear, Moving All Extremities Psychiatric Psych Exam: Appropriate Responses Assessment/Plan Discussed Condition With: Patient Assessment Summary: End Stage Renal Disease Problem List: (1) ESRD (end stage renal disease) Plan: -W- dialysis, she had additional dialysis Wednesday 1L UF has use left chest AV graft vascath from groin was removed vascath in right subclavian, removed K is acceptable at this time avoid IVF, gadolinium (2) Hematoma, chest wall Plan: monitor, it is resolving now with anemia and consumptive thrombocytopenia, plt transfused yesterday likely developed atelectasis from compression of right lung, given incentive spirometer, encouraged cough/deep breathing (3) Uremia Plan: continue dialysis as above (4) Hypertension Plan: BP improved on clonidine 0.1 BID and losartan 25 BID (5) Metabolic bone disease Plan: on renvela, check phos in am (6) Anemia Plan: hb improved contiue epogen with dialysis given 2 more units PRBC yesterday with dialysis iron profile reviewed Naseem Valentin MD Sep 13, 2016 14:14
[2016-09-13] MEDS: cefTRIAXone INJ 1,000 MG in SODIUM CHLORIDE 0.9% INJ 100 ML IV SCH (15:04)
[2016-09-14] VITALS (9 sets, daily range): BP systolic 103–142; BP diastolic 43–62; PULSE 60–73; RESP 16–20; TEMP 96–98.4; O2SAT 91–98
[2016-09-14] MEDS: LORazepam 1 MG TAB PO PRN ×2 (02:20→21:17)
[2016-09-14 07:57] LABS: AUTOMATED NEUTROPHIL # 3.7 TH/MM3 (1.8-7.7); BASOPHIL % 0.7 % (0.0-2.0); EOSINOPHIL # 0.1 TH/MM3 (0-0.4); EOSINOPHIL % 0.9 % (0.0-4.0); HEMATOCRIT 30.3 % (35.0-46.0); LYMPH % 17.5 % (9.0-44.0); LYMPHOCYTE # 1.1 TH/MM3 (1.0-4.8); MEAN CELL VOLUME 87.2 FL (80.0-100.0); MEAN CORPUSCULAR HEMOGLOBIN 28.7 PG (27.0-34.0); MEAN CORPUSCULAR HGB CONC 32.9 % (32.0-36.0); MONO % 19.8 % (0.0-8.0); NEUT % 61.1 % (16.0-70.0); PLATELET COUNT 107 TH/MM3 (150-450); RED BLOOD COUNT 3.48 MIL/MM3 (4.00-5.30); RED CELL DISTRIBUTION WIDTH 15.7 % (11.6-17.2); WHITE BLOOD COUNT 6.1 TH/MM3 (4.0-11.0)
[2016-09-14 07:59] LABS: HEMO FLAGS AUTO DIFF
--- NOTE | 2016-09-14 08:03 | HHI.PR ---
Subjective Remarks Follow up pneumonia, ESRD, anemia, thrombocytopenia. Patient denies chest pain, dyspnea. Wants to get out of bed more today. Objective Vitals Vital Signs Date Time Temp Pulse Resp B/P Pulse Ox O2 Delivery O2 Flow Rate FiO2 09/14/16 04:00 96.1 68 20 138/60 97 09/14/16 00:00 96.0 73 19 142/62 97 09/13/16 20:20 98 09/13/16 20:06 71 09/13/16 20:00 96.8 72 18 141/62 99 09/13/16 16:00 96.1 64 20 110/52 100 09/13/16 11:15 97.1 64 22 107/49 93 09/13/16 09:37 99 Nasal Cannula 2.00 I/O 09/13/16 09/13/16 09/13/16 09/14/16 09/14/16 09/14/16 07:00 15:00 23:00 07:00 15:00 23:00 Intake Total 240 ml 720 ml 696 ml 240 ml Output Total 100 ml 100 ml 75 ml Balance 140 ml 720 ml 596 ml 165 ml Intake Oral 240 ml 720 ml 600 ml 240 ml IV Total 96 ml Output Urine Total 100 ml 100 ml 75 ml # Voids 0 # Bowel Movements 0 1 Result Diagram: 09/14/16 0515 09/13/16 0700 Imaging Last Impressions Chest X-Ray 09/13/16 0600 Signed Impressions: Service Date/Time: Tuesday, September 13, 2016 04:09 - CONCLUSION: Little change accounting for projection Augustin Hernandez MD Shunt Study (Imaging) 09/08/16 1137 Signed Impressions: Service Date/Time: Thursday, September 08, 2016 15:46 - CONCLUSION: 1. Complete occlusion of the venous outflow of the dialysis graft. A Vas-Cath is to be placed Nigel Mcfarland MD Chest CT 09/08/16 0000 Signed Impressions: Service Date/Time: Thursday, September 08, 2016 22:24 - CONCLUSION: 1. Status post right Vas-Cath placement but with large hematoma in the right anterior chest wall measuring up to about 12.9 x 1.5 cm. No mediastinal hematoma. 2. Small to moderate right pleural effusion with consolidation and atelectasis of the right posterior lung. Trace left pleural fluid and left basilar atelectasis. 3. Moderate anasarca. No pericardial effusion. Armando Lynne MD Catheter Placement X-Ray 09/08/16 0000 Signed Impressions: Service Date/Time: Thursday, September 08, 2016 15:46 - CONCLUSION: Uncomplicated line placement as above. Nigel Mcfarland MD Head CT 09/07/16 0000 Signed Impressions: Service Date/Time: Thursday, September 08, 2016 12:23 - CONCLUSION: 1. Punctate high density in the roof of third ventricle may be related to colloid cyst versus less likely punctate hemorrhage. 2. No acute abnormality. Shilo Sher MD Objective Remarks General: No acute distress. Heart: Regular rate and rhythm. 2/6 murmur. Chest wall: Hematoma improved. Skin: Ecchymosis on right upper back, right chest wall, and right arm. Lungs: Clear to auscultation bilaterally. No wheezes, rales, or rhonchi. Breathing is nonlabored. Abdomen: Soft, nontender, nondistended. Extremities: No lower extremity edema. Psych: Alert and oriented. Procedures 09/08/16 Vas-Cath placement Urinary Catheter: No Vascular Central Line Catheter: No A/P Problem List: (1) ESRD (end stage renal disease) ICD Code: N18.6 Status: Chronic (2) Uremia ICD Code: N19 Status: Acute (3) Tremor of both hands ICD Code: R25.1 Status: Acute (4) Cough ICD Code: R05 Status: Chronic (5) Bipolar 1 disorder, depressed ICD Code: F31.9 Status: Chronic (6) Hematoma, chest wall ICD Code: S20.219A Status: Resolved (7) Thrombocytopenia ICD Code: D69.6 Status: Acute (8) Anemia ICD Code: D64.9 Status: Acute Assessment and Plan 1. Chest wall hematoma: Improved. Plavix, heparin on hold. H&H has been stable. 2. Thrombocytopenia, anemia: Platelets have been trending down. Has received 2 units PRBCs and 1 unit of platelets during this hospitalization. Platelets trending up. Appreciate hematology recommendations. Thrombocytopenia is likely secondary to consumptive process with bleeding and hematoma, as well as medication effect from Plavix. 3. End-stage renal disease: Hemodialysis per nephrology. 4. COPD: Continue duo nebs. 5. Hypertension: Continue clonidine, hydralazine. 6. Bipolar disorder: Continue Lexapro. Ativan as needed. 7. GI prophylaxis: Protonix. 8. Fever, pneumonia: Continue antibiotics (Rocephin and azithromycin). The patient was afebrile overnight. No leukocytosis. 9. DVT prophylaxis: SCDs, [place]. Avoid chemical prophylaxis secondary to hematoma, anemia, thrombocytopenia. 10. Hyponatremia: Sodium decreased today. Appreciate nephrology recommendations. Patient is going for dialysis now. Marco Antonio Tracy MD Sep 14, 2016 08:03
[2016-09-14 08:16] LABS: BICARBONATE 24.8 MEQ/L (21.0-32.0); POTASSIUM 4.8 MEQ/L (3.5-5.1)
[2016-09-14] MEDS: SEVELAMER CARBONATE 800 MG TAB PO SCH ×3 (08:30→19:06)
[2016-09-14] MEDS: METOCLOPRAMIDE HCL 10 MG TAB PO SCH ×3 (08:30→19:06)
[2016-09-14] MEDS: LOSARTAN 25 MG TAB PO SCH ×2 (08:30→21:13)
[2016-09-14 08:56] LABS: BANDS 13 % (0-6); NEUTROPHIL # MANUAL DIFF 3.8 TH/MM3 (1.8-7.7); PLATELET ESTIMATE SMEAR LOW (NORMAL); PLATELET MORPHOLOGY NORMAL (NORMAL); POLYS (SEG NEUTROPHILS) 50 % (16-70); WBC DIFF SAMPLE 100
[2016-09-14 08:57] LABS: ACANTHOCYTES OCC (NORMAL); BURR CELLS 1+ (NORMAL); SCAN/DIFF FINAL DIFF MANUAL
--- NOTE | 2016-09-14 09:44 | HHI.NPPN ---
Subjective General Problems: Anemia Renal Failure: Chronic, End Stage Renal Disease Interval History patient was seen and examined during dialysis. She is lethargic. Her serum Na is low. Review of Systems General Constitutional: Fatigue Heme-Lymph Heme-Lymph: Bleeding Objective Data Data 09/13/16 09/14/16 19:00 07:00 Intake Total 936 ml 720 ml Output Total 75 ml 100 ml Balance 861 ml 620 ml Intake Oral 840 ml 720 ml IV Total 96 ml Output Urine Total 75 ml 100 ml # Voids 0 # Bowel Movements 0 1 Vital Signs Date Time Temp Pulse Resp B/P Pulse Ox O2 Delivery O2 Flow Rate FiO2 09/14/16 08:12 97.4 60 16 103/43 94 09/14/16 04:00 96.1 68 20 138/60 97 09/14/16 00:00 96.0 73 19 142/62 97 09/13/16 20:20 98 09/13/16 20:06 71 09/13/16 20:00 96.8 72 18 141/62 99 09/13/16 16:00 96.1 64 20 110/52 100 09/13/16 11:15 97.1 64 22 107/49 93 -: 09/14/16 0515 09/14/16 0515 Tubes & Lines: Vas-Cath Physical Exam General Appearance: Well Developed, Well Nourished, No Acute Distress Throat Throat Exam: Oral Mucosa [place] & Moist Neck Neck Exam: Neck Supple Pulmonary Resp Exam: Breath Sounds Equal, No Distress Cardiology CV Exam: Regular, Good Perfusion Gastrointestinal/Abdomen GI Exam: Soft, Non-Tender Musculoskeletal MS Exam: Joints Intact, Normal Tone Integumentary Skin Exam: Warm, Dry, Intact Extremeties Extremities Exam: No Edema, Pedal Pulses Palpable Neurologic Neuro Exam: Alert, Awake, Oriented, Speech Clear, Moving All Extremities Psychiatric Psych Exam: Appropriate Responses Assessment/Plan Discussed Condition With: Patient Assessment Summary: End Stage Renal Disease Problem List: (1) ESRD (end stage renal disease) Plan: M-W- dialysis, dialysis today, UF goal is 3.5 liters, 2K. has use left chest AV graft vascath from groin was removed vascath in right subclavian, removed K is acceptable at this time avoid IVF, gadolinium (2) Hematoma, chest wall Plan: monitor, it is resolving now with anemia and consumptive thrombocytopenia, plt transfused yesterday likely developed atelectasis from compression of right lung, given incentive spirometer, encouraged cough/deep breathing (3) Uremia Plan: continue dialysis as above (4) Hypertension Plan: BP improved on clonidine 0.1 BID and losartan 25 BID (5) Metabolic bone disease Plan: on renvela, check phos in am (6) Anemia Plan: hb improved contiue epogen with dialysis given 2 more units PRBC yesterday with dialysis iron profile reviewed Omar Momin MD Sep 14, 2016 09:44
[2016-09-14] MEDS: cloNIDine HCL 0.1 MG TAB PO SCH ×2 (12:38→21:14)
[2016-09-14] MEDS: cefTRIAXone INJ 1,000 MG in SODIUM CHLORIDE 0.9% INJ 100 ML IV SCH (12:44)
[2016-09-14] MEDS: DOCUSATE SODIUM 100 MG CAP PO SCH ×2 (12:45→21:13)
[2016-09-14] MEDS: ESCITALOPRAM OXALATE 10 MG TAB PO SCH (12:46)
[2016-09-14] MEDS: GABAPENTIN 100 MG CAP PO SCH (12:46)
[2016-09-14] MEDS: AZITHROMYCIN 250 MG TAB PO SCH (12:46)
[2016-09-14] MEDS: CINACALCET HYDROCHLORIDE 30 MG TAB PO SCH (12:46)
[2016-09-14] MEDS: PANTOPRAZOLE SOD 20 MG DELAYED RELEASE TAB PO SCH (12:46)
[2016-09-14] MEDS: VITAMIN B CMPLX/VITC/FOLIC AC CAP PO SCH (12:47)
[2016-09-14] MEDS: ALLOPURINOL 100 MG TAB PO SCH (12:48)
[2016-09-14] MEDS: BUDESONIDE-FORMOTEROL 160/4.5 MCG INHALER INH SCH ×2 (12:56→21:13)
--- NOTE | 2016-09-14 12:57 | EKG ---
Date Performed: 09/07/2016 Time Performed: 23:12:02 PTAGE: 50 years EKG: Sinus rhythm WITH OCCASIONAL SUPRAVENTRICULAR PREMATURE COMPLEXES BORDERLINE ECG NO PREVIOUS TRACING DOCTOR: Nigel Tillman Interpretating Date/Time 09/14/2016 12:57:08
[2016-09-14 15:46] LABS: BICARBONATE 29.6 MEQ/L (21.0-32.0); POTASSIUM 3.4 MEQ/L (3.5-5.1)
[2016-09-14] MEDS: ACETAMINOPHEN/HYDROcodone 325 MG/7.5 MG TAB PO PRN (19:08)
[2016-09-15] VITALS: BP 117/60; PULSE 60; RESP 16; TEMP 96.8; O2SAT 96
[2016-09-15 04:15] VITALS: BP 130/57; PULSE 63; RESP 16; TEMP 97.7; O2SAT 94
[2016-09-15 07:40] LABS: BICARBONATE 28.2 MEQ/L (21.0-32.0); POTASSIUM 4.2 MEQ/L (3.5-5.1)
[2016-09-15 07:51] VITALS: PULSE 69
[2016-09-15 08:00] VITALS: BP 127/58; PULSE 63; RESP 16; TEMP 98.5; O2SAT 94
[2016-09-15 08:57] VITALS: O2SAT 93
[2016-09-15] MEDS: VITAMIN B CMPLX/VITC/FOLIC AC CAP PO SCH (09:07)
[2016-09-15] MEDS: DOCUSATE SODIUM 100 MG CAP PO SCH (09:07)
[2016-09-15] MEDS: GABAPENTIN 100 MG CAP PO SCH (09:07)
[2016-09-15] MEDS: ACETAMINOPHEN/HYDROcodone 325 MG/7.5 MG TAB PO PRN (09:07)
[2016-09-15] MEDS: AZITHROMYCIN 250 MG TAB PO SCH (09:07)
[2016-09-15] MEDS: LOSARTAN 25 MG TAB PO SCH (09:08)
[2016-09-15] MEDS: ESCITALOPRAM OXALATE 10 MG TAB PO SCH (09:08)
[2016-09-15] MEDS: PANTOPRAZOLE SOD 20 MG DELAYED RELEASE TAB PO SCH (09:08)
[2016-09-15] MEDS: ALLOPURINOL 100 MG TAB PO SCH (09:08)
[2016-09-15] MEDS: CINACALCET HYDROCHLORIDE 30 MG TAB PO SCH (09:11)
[2016-09-15] MEDS: SEVELAMER CARBONATE 800 MG TAB PO SCH (09:11)
[2016-09-15] MEDS: METOCLOPRAMIDE HCL 10 MG TAB PO SCH (09:11)
[2016-09-15] MEDS: BUDESONIDE-FORMOTEROL 160/4.5 MCG INHALER INH SCH (09:12)
--- NOTE | 2016-09-15 09:56 | HHI.PR ---
Subjective Remarks Follow up pneumonia, hematoma. The patient reports pressure, discomfort in the right flank and right upper arm. Still with ecchymosis, hematoma in right flank/ back/breast/arm. Denies dyspnea, chest pain. Objective Vitals Vital Signs Date Time Temp Pulse Resp B/P Pulse Ox O2 Delivery O2 Flow Rate FiO2 09/15/16 08:00 98.5 63 16 127/58 94 09/15/16 07:51 69 09/15/16 04:15 97.7 63 16 130/57 94 09/15/16 00:00 96.8 60 16 117/60 96 09/14/16 20:30 97.9 66 16 137/60 98 09/14/16 20:08 18 09/14/16 20:08 63 09/14/16 19:45 96 09/14/16 16:00 98.4 64 16 120/48 97 09/14/16 12:03 66 09/14/16 12:00 98.0 67 16 134/51 91 I/O 09/14/16 09/14/16 09/14/16 09/15/16 09/15/16 09/15/16 07:00 15:00 23:00 07:00 15:00 23:00 Intake Total 240 ml 240 ml 700 ml 120 ml Output Total 75 ml 3600 ml 50 ml Balance 165 ml -3360 ml 650 ml 120 ml Intake Oral 240 ml 240 ml 700 ml 120 ml Output Urine Total 75 ml 100 ml 50 ml Hemodialysis 3500 ml # Voids 2 # Bowel Movements 2 Result Diagram: 09/14/16 0515 09/15/16 0656 Imaging Last Impressions Chest X-Ray 09/13/16 0600 Signed Impressions: Service Date/Time: Tuesday, September 13, 2016 04:09 - CONCLUSION: Little change accounting for projection Augustin Hernandez MD Shunt Study (Imaging) 09/08/16 1137 Signed Impressions: Service Date/Time: Thursday, September 08, 2016 15:46 - CONCLUSION: 1. Complete occlusion of the venous outflow of the dialysis graft. A Vas-Cath is to be placed Nigel Mcfarland MD Chest CT 09/08/16 0000 Signed Impressions: Service Date/Time: Thursday, September 08, 2016 22:24 - CONCLUSION: 1. Status post right Vas-Cath placement but with large hematoma in the right anterior chest wall measuring up to about 12.9 x 1.5 cm. No mediastinal hematoma. 2. Small to moderate right pleural effusion with consolidation and atelectasis of the right posterior lung. Trace left pleural fluid and left basilar atelectasis. 3. Moderate anasarca. No pericardial effusion. Armando Lynne MD Catheter Placement X-Ray 09/08/16 0000 Signed Impressions: Service Date/Time: Thursday, September 08, 2016 15:46 - CONCLUSION: Uncomplicated line placement as above. Nigel Mcfarland MD Head CT 09/07/16 0000 Signed Impressions: Service Date/Time: Thursday, September 08, 2016 12:23 - CONCLUSION: 1. Punctate high density in the roof of third ventricle may be related to colloid cyst versus less likely punctate hemorrhage. 2. No acute abnormality. Shilo Sher MD Objective Remarks Patient examined in presence of the nurse. General: No acute distress. Heart: Regular rate and rhythm. 2/6 murmur. Chest wall: Hematoma of right breast. Skin: Ecchymosis on right upper back, right chest wall, and right arm. Lungs: Clear to auscultation bilaterally. No wheezes, rales, or rhonchi. Breathing is nonlabored. Abdomen: Soft, nontender, nondistended. Extremities: No lower extremity edema. Psych: Alert and oriented. Procedures 09/08/16 Vas-Cath placement Urinary Catheter: No Vascular Central Line Catheter: No A/P Problem List: (1) ESRD (end stage renal disease) ICD Code: N18.6 Status: Chronic (2) Uremia ICD Code: N19 Status: Acute (3) Tremor of both hands ICD Code: R25.1 Status: Acute (4) Cough ICD Code: R05 Status: Chronic (5) Bipolar 1 disorder, depressed ICD Code: F31.9 Status: Chronic (6) Hematoma, chest wall ICD Code: S20.219A Status: Resolved (7) Thrombocytopenia ICD Code: D69.6 Status: Acute (8) Anemia ICD Code: D64.9 Status: Acute Assessment and Plan 1. Chest wall hematoma: Improving. Still with significant ecchymosis on exam. Plavix, heparin on hold. H&H has been stable. 2. Thrombocytopenia, anemia: Platelets have been trending down. Has received 2 units PRBCs and 1 unit of platelets during this hospitalization. Platelets trending up. Appreciate hematology recommendations. Thrombocytopenia is likely secondary to consumptive process with bleeding and hematoma, as well as medication effect from Plavix. 3. End-stage renal disease: Hemodialysis per nephrology. 4. COPD: Continue duo nebs. 5. Hypertension: Continue clonidine, hydralazine. 6. Bipolar disorder: Continue Lexapro. Ativan as needed. 7. GI prophylaxis: Protonix. 8. Fever, pneumonia: Continue antibiotics (Rocephin and azithromycin). The patient was afebrile overnight. No leukocytosis. 9. DVT prophylaxis: SCDs, [place]. Avoid chemical prophylaxis secondary to hematoma, anemia, thrombocytopenia. 10. Hyponatremia: Sodium decreased again today. Appreciate nephrology recommendations. Monitor labs. 11. Increase activity today. 12. Hypokalemia: Improved. Marco Antonio Tracy MD Sep 15, 2016 09:56
--- NOTE | 2016-09-15 10:17 | HHI.DCPOC ---
Discharge Care Plan Diagnosis: (1) Thrombocytopenia (2) Hematoma, chest wall (3) Anemia (4) Hypertension (5) ESRD (end stage renal disease) Goals to Promote Your Health * To prevent worsening of your condition and complications * To maintain your health at the optimal level Directions to Meet Your Goals Take your medications as prescribed Follow your dietary instruction Follow activity as directed Keep your appointments as scheduled Take your immunizations and boosters as scheduled If your symptoms worsen call your PCP, if no PCP go to Urgent Care Center or Emergency Room Smoking is Dangerous to Your Health. Avoid second hand smoke Call the 24-hour hour crisis hotline for domestic abuse at Marco Antonio Tracy MD Sep 15, 2016 10:17
[2016-09-15] MEDS ORDERED: HYDR-3580 PO (10:29)
[2016-09-15] MEDS ORDERED: CEFT500T3 PO (10:29)
[2016-09-15] MEDS ORDERED: LORA-474 PO (10:29)
[2016-09-15] MEDS ORDERED: COZA25TA PO (10:29)
[2016-09-15] MEDS ORDERED: SEVEL800 PO (10:29)
[2016-09-15] MEDS ORDERED: ZITH250T PO (10:29)
--- NOTE | 2016-09-15 11:45 | HHI.NPPN ---
Subjective General Problems: Anemia Renal Failure: Chronic, End Stage Renal Disease Interval History Dialyzed yesterday. Sitting on edge of bed working with therapy. Asking to go home. (Alexia Curtis) Review of Systems General Constitutional: Fatigue (Alexia Curtis) Heme-Lymph Heme-Lymph: Bleeding (Alexia Curtis) Objective Data Data 09/14/16 09/15/16 19:00 07:00 Intake Total 340 ml 720 ml Output Total 3650 ml Balance -3310 ml 720 ml Intake Oral 340 ml 720 ml Output Urine Total 150 ml Hemodialysis 3500 ml # Voids 2 # Bowel Movements 1 1 Vital Signs Date Time Temp Pulse Resp B/P Pulse Ox O2 Delivery O2 Flow Rate FiO2 09/15/16 08:00 98.5 63 16 127/58 94 09/15/16 07:51 69 09/15/16 04:15 97.7 63 16 130/57 94 09/15/16 00:00 96.8 60 16 117/60 96 09/14/16 20:30 97.9 66 16 137/60 98 09/14/16 20:08 18 09/14/16 20:08 63 09/14/16 19:45 96 09/14/16 16:00 98.4 64 16 120/48 97 09/14/16 12:03 66 09/14/16 12:00 98.0 67 16 134/51 91 (Alexia Curtis) -: 09/14/16 0515 09/15/16 0656 Physical Exam General Appearance: Well Developed, Well Nourished, No Acute Distress, Comfortable ( Alexia Curtis) Throat Throat Exam: Oral Mucosa [place] & Moist (Alexia Curtis) Neck Neck Exam: Neck Supple (Alexia Curtis) Pulmonary Resp Exam: Breath Sounds Equal, No Distress (Alexia Curtis) Cardiology CV Exam: Regular, Good Perfusion CV Remarks hematoma right chest wall with ecchymosis extending around breast to back, tender to palpation, vascath in right chest graft left chest above breast, + thrill/bruit (Alexia Curtis) Gastrointestinal/Abdomen GI Exam: Soft, Non-Tender (Alexia Curtis) Musculoskeletal MS Exam: Joints Intact, Normal Tone (Alexia Curtis) Integumentary Skin Exam: Warm, Dry, Intact (Alexia Curtis) Extremeties Extremities Exam: No Edema, Pedal Pulses Palpable (Alexia Curtis) Neurologic Neuro Exam: Alert, Awake, Oriented, Speech Clear, Moving All Extremities ( Alexia Curtis) Psychiatric Psych Exam: Appropriate Responses (Alexia Curtis) Assessment/Plan Discussed Condition With: Patient Assessment Summary: End Stage Renal Disease Problem List: (1) ESRD (end stage renal disease) Plan: dialysis, she had 3500 ml UF yesterday has use left chest AV graft vascath x 2 were removed K is acceptable at this time she can be discharged, has outpatient HD arrangements in [facility] , 1pm (2) Hematoma, chest wall Plan: it is resolving now with improving anemia and consumptive thrombocytopenia, hematology has evaluated likely developed atelectasis from compression of right lung, given incentive spirometer, encouraged cough/deep breathing (3) Uremia Plan: continue dialysis as above (4) Hypertension Plan: BP improved on clonidine 0.1 BID and losartan 25 BID (5) Metabolic bone disease Plan: on renvela (6) Anemia Plan: hb improved contiue epogen with dialysis has received several units since admission hematology has signed off (Alexia Curtis) Plan patient was seen and examined. Agree with above assessment and plan. She can be discharged from renal standpoint. (Omar Momin MD) Alexia Curtis Sep 15, 2016 11:45 Omar Momin MD Sep 15, 2016 16:32
[2016-09-15 12:04] LABS: HEMATOCRIT 28.9 % (35.0-46.0); REVIEW FLAG FINAL
[2016-09-15 12:32] VITALS: BP 116/49; PULSE 70; RESP 16; TEMP 97.8; O2SAT 96
--- NOTE | 2016-09-21 10:27 | PQ ---
Physician Query Response Document PATIENT: CHAD TINOCO : 1965 ADMIT DATE: 09/08/2016 7:04 PM DISCH DATE: 09/15/2016 2:51 PM RESPONDING PROVIDER #: [email or web address] QUERY TEXT: Anemia Type Anemia is documented in the Medical Record. Please specify the cause (includes suspected or probable cause) Such as: -- Due to acute blood loss -- Due to chronic blood loss -- Due to iron deficiency -- Due to postoperative blood loss -- Due to chronic disease -- Other, please specify PLEASE CALL [facility] EX #[id number] FOR QUESTIONS- THANKS The patient's Clinical Indicators include: PER PROGRESS NOTE 09/10/16: Problem List: (4) Hematoma, chest wall Subjective: 09/09: Expansion of hematoma. HGB=12.7 ON 09/07/16 HGB= 7.9 ON 09/08/16 PATIENT WAS TRANSFUSED WITH 2 UNITS PRBCs Query created by: Michelle Cameron on 09/10/2016 2:42 PM RESPONSE TEXT: Anemia due to chronic disease Electronically signed by: Namrata Porter MD 09/21/2016 10:23 AM
--- NOTE | 2016-10-19 15:34 | HHI.DS ---
Discharge Summary Admission Date Sep 08, 2016 at 19:04 Discharge Date: Sep 15, 2016 Admitting Diagnosis uremia (1) ESRD (end stage renal disease) ICD Code: N18.6 (2) Uremia ICD Code: N19 (3) Tremor of both hands ICD Code: R25.1 (4) Cough ICD Code: R05 (5) Bipolar 1 disorder, depressed ICD Code: F31.9 Procedures 09/08/16 Vas-Cath placement Brief History - From Admission 50 y/o female with a history of ESRD on hemodialysis,emphysema, Bipolar, and COPD who is having lethargy but is able to answer questions presented to the ED with complaints of weakness, and a fall after having hand tremors. Patient states her hand were shaking for about a min and she lost her balance and fell. She states for the past year she has been falling and having balance issues. She denies any LOC or trauma to her head. She does get dialysis MWF, but states she missed it on Wednesday because she did not have transportation. She denies any fever, chills, chest pain or sob. Patient does have a congested cough that she says has been the same for the last 6 months. Chest xray was unremarkable. Her green prize packer Dr. Vinson requested admission to medical service for uremia Imaging Last Impressions Chest X-Ray 09/13/16 0600 Signed Impressions: Service Date/Time: Tuesday, September 13, 2016 04:09 - CONCLUSION: Little change accounting for projection Augustin Hernandez MD Shunt Study (Imaging) 09/08/16 1137 Signed Impressions: Service Date/Time: Thursday, September 08, 2016 15:46 - CONCLUSION: 1. Complete occlusion of the venous outflow of the dialysis graft. A Vas-Cath is to be placed Nigel Mcfarland MD Chest CT 09/08/16 0000 Signed Impressions: Service Date/Time: Thursday, September 08, 2016 22:24 - CONCLUSION: 1. Status post right Vas-Cath placement but with large hematoma in the right anterior chest wall measuring up to about 12.9 x 1.5 cm. No mediastinal hematoma. 2. Small to moderate right pleural effusion with consolidation and atelectasis of the right posterior lung. Trace left pleural fluid and left basilar atelectasis. 3. Moderate anasarca. No pericardial effusion. Armando Lynne MD Catheter Placement X-Ray 09/08/16 0000 Signed Impressions: Service Date/Time: Thursday, September 08, 2016 15:46 - CONCLUSION: Uncomplicated line placement as above. Nigel Mcfarland MD Head CT 09/07/16 0000 Signed Impressions: Service Date/Time: Thursday, September 08, 2016 12:23 - CONCLUSION: 1. Punctate high density in the roof of third ventricle may be related to colloid cyst versus less likely punctate hemorrhage. 2. No acute abnormality. Shilo Sher MD PE at Discharge Patient examined in presence of the nurse. General: No acute distress. Heart: Regular rate and rhythm. 2/6 murmur. Chest wall: Hematoma of right breast. Skin: Ecchymosis on right upper back, right chest wall, and right arm. Lungs: Clear to auscultation bilaterally. No wheezes, rales, or rhonchi. Breathing is nonlabored. Abdomen: Soft, nontender, nondistended. Extremities: No lower extremity edema. Psych: Alert and oriented. Hospital Course The patient was admitted for management of end-stage renal disease with uremia secondary to missed hemodialysis. Nephrology was consulted. Dialysis was arranged. Interventional radiology was consulted and placed a dialysis catheter. The patient developed infiltration of the Vas-Cath in the right chest wall with surrounding hematoma. The hematoma increased in size. Patient was noted to have significant thrombocytopenia. Hematology was consulted and agreed that the thrombocytopenia was likely consumptive. She received platelet pheresis 1 unit. She received transfusion of 4 units PRBCs throughout the hospitalization. Hemoglobin improved and stable. Vas-Cath was removed from the groin, and this was accompanied by bleeding. Vas-Cath was removed from the chest wall without significant bleeding. Hematoma improved, decreasing in size. She was treated with Rocephin and azithromycin for pneumonia. She showed clinical improvement. Her regular schedule of Wednesday/Wednesday/Wednesday hemodialysis was resumed. Arrangements were made for outpatient hemodialysis. She was cleared for discharge by nephrology. Pt Condition on Discharge: Stable Discharge Disposition: Disch w/ Home Health Serv Discharge Time: > 30 minutes Discharge Instructions DIET: Follow Instructions for: Renal Failure Diet Fluid Restrictions: 1000ml/day Activities you can perform: Regular-No Restrictions Follow up Referrals: Nephrology - 1 Week with Omar Momin MD PCP Follow-up - 1 Week New Medications: Hydrocodone-Acetaminophen (Hydrocodone-Acetaminophen) 7.5-325 mg Tab 1 TAB PO Q4H PRN PAIN SCALE 6 TO 10 #30 Ref 0 TAB Losartan (Cozaar) 25 Mg Tab 25 MG PO Q12HR Blood Pressure Management #60 Ref 0 TAB Continued Medications: B-Complex W/ C & Folic Acid (Nephrocaps) 1 Cap 1 CAP PO DAILY If on dialysis, take after treatment. Nutritional Supplement #30 Ref 0 CAP Benztropine (Benztropine) 2 Mg Tab 2 MG PO Q12HR side effects Days 10 Ref 1 TAB Cinacalcet (Sensipar) 60 Mg Tab 60 MG PO DAILY With Dinner #30 Ref 0 TAB Escitalopram (Lexapro) 10 Mg Tab 10 MG PO DAILY #30 Ref 0 TAB Metoclopramide (Reglan) 5 Mg Tab 5 MG PO TIDAC Ref 0 TAB Discontinued Medications: Allopurinol (Allopurinol) 300 Mg Tab 300 MG PO DAILY Gout #30 Ref 0 TAB Benztropine (Benztropine) 2 Mg Tab 2 MG PO BID #60 Ref 0 TAB Clopidogrel (Plavix) 75 Mg Tab 75 MG PO DAILY Blood Clot Prevention #30 Ref 0 TAB Escitalopram (Escitalopram) 20 Mg Tab 20 MG PO DAILY depression Days 10 Ref 1 TAB Ferric Citrate (Auryxia) 210 Mg Tab Hydroxyzine HCl (Hydroxyzine HCl) 10 Mg Tab 10 MG PO BID Ref 0 TAB Trazodone (Trazodone) 100 Mg Tab 100 MG PO HS Control Depression #30 Ref 0 TAB Ziprasidone (Geodon) 80 Mg Cap 80 MG PO BID #60 Ref 0 CAP Ziprasidone (Geodon) 80 Mg Cap 80 MG PO BIDPC hallucinations Days 10 Ref 1 CAP Marco Antonio Tracy MD Oct 19, 2016 15:34
[2016-11-10] MEDS ORDERED: PLAV75TA29 PO (15:49)
[2016-11-10] MEDS ORDERED: LOSA50TA PO (15:49)
[2016-11-10] MEDS ORDERED: SENS60TA PO (15:50)
== END 2016-09-15 14:51 | disposition home health service (06) | DRG 682 ==
LOC: NEPC 13:44 → NEDA 18:09 → NEPGCP 19:24 → HIME 09-08 18:45 → OBSVTOIN 09-08 19:04 → HOCA 09-11 23:34
PROVIDERS: ADMIT Family Medicine; ATTEND Family Medicine
PROC: 05H533Z Insertion of Infusion Device into Right Subclavian Vein, Percutaneous Approach (ICD-10-PCS; principal; 2016-09-08)
PROC: 5A1D60Z (ICD-10-PCS; 2016-09-08)
PROC: 02HV33Z Insertion of Infusion Device into Superior Vena Cava, Percutaneous Approach (ICD-10-PCS; 2016-09-08)
PROC: B5161ZA Fluoroscopy of Right Subclavian Vein using Low Osmolar Contrast, Guidance (ICD-10-PCS; 2016-09-08)
PROC: B51W1ZZ Fluoroscopy of Dialysis Shunt/Fistula using Low Osmolar Contrast (ICD-10-PCS; 2016-09-08)
PROC: 30243N1 Transfusion of Nonautologous Red Blood Cells into Central Vein, Percutaneous Approach (ICD-10-PCS; 2016-09-09)
PROC: 30233R1 Transfusion of Nonautologous Platelets into Peripheral Vein, Percutaneous Approach (ICD-10-PCS; 2016-09-10)
DX: I13.11 Hypertensive heart and chronic kidney disease without heart failure, with stage 5 chronic kidney disease, or end stage renal disease (principal); N18.6 End stage renal disease; J18.9 Pneumonia, unspecified organism; J96.10 Chronic respiratory failure, unspecified whether with hypoxia or hypercapnia; E88.89 Other specified metabolic disorders; T82.590A Other mechanical complication of surgically created arteriovenous fistula, initial encounter; J44.0 Chronic obstructive pulmonary disease with (acute) lower respiratory infection; D69.59 Other secondary thrombocytopenia; J98.11 Atelectasis; I97.638 Postprocedural hematoma of a circulatory system organ or structure following other circulatory system procedure; E87.1 Hypo-osmolality and hyponatremia; D69.6 Thrombocytopenia, unspecified; Z99.81 Dependence on supplemental oxygen; Z99.2 Dependence on renal dialysis; F31.9 Bipolar disorder, unspecified; J44.9 Chronic obstructive pulmonary disease, unspecified; D64.9 Anemia, unspecified; S80.212A Abrasion, left knee, initial encounter; S80.211A Abrasion, right knee, initial encounter; R01.1 Cardiac murmur, unspecified; G25.3 Myoclonus; R49.0 Dysphonia; D63.1 Anemia in chronic kidney disease; E87.6 Hypokalemia; F17.200 Nicotine dependence, unspecified, uncomplicated; T45.525A Adverse effect of antithrombotic drugs, initial encounter; W18.30XA Fall on same level, unspecified, initial encounter; Y71.2 Prosthetic and other implants, materials and accessory cardiovascular devices associated with adverse incidents; Z91.19 Patient's noncompliance with other medical treatment and regimen
CPT/HCPCS: 36430; 36556; 36901; 70450; 71010; 71250; 76937; 76942; 77001; 80048; 80053; 80069; 81001; 82140; 82550; 83540; 83550; 83735; 84100; 84439; 84443; 84481; 84484; 85007; 85014; 85018; 85025; 85027; 85610; 85730; 86850; 86900; 86901; 86920; 87040; 87086; 87641; 90935; 93005; 94150; 94640; 94664; 96374; 96375; C1752; C1769; C1887; C1894; G0378; G8987-GP; G8988-GP; J0360; J0696; J1580; J1644; J2597; J3010; J7030; J7050; J7613; P9016; P9035; P9047; Q9967

== ENCOUNTER 2016-10-05 13:34 | Observation (INO) | payer MEDICARE, OTHER ==
[~2016-10-05] VITALS: Ht 142.2 cm; Wt 67.0 kg
[~2016-10-05 13:34] MED LIST changes: -ALLO300T2 PO; +CEFT500T3 PO; +COZA25TA PO; -ESCI20TA PO; -FERR1TAB16; -GEOD80CA PO; +HYDR-3580 PO; -HYDR-755 PO; -PLAV75TA29 PO; +SEVEL800 PO; -TRAZ100T4 PO; +ZITH250T PO
[2016-10-05 13:38] VITALS: BP 145/59; PULSE 84; RESP 15; TEMP 97.6; O2SAT 95
--- NOTE | 2016-10-05 16:59 | PD ---
HPI Chief Complaint: Edema Time Seen by Provider: 16:25 Travel History International Travel<30 days: No Contact w/Intl Traveler<30days: No Traveled to known affect area: No History of Present Illness HPI The patient is a 51-year-old female who presents emergency department with her wkfpevzw-mo-rgb for lethargy. The zinakmox-pa-jhf states the patient has a history of end-stage renal disease and is currently on hemodialysis. The patient normally gets hemodialysis on Mondays, Wednesdays, and Fridays. The patient is followed by her cash grain farmer, Dr. Vinson, in [place], [place]. The patient missed dialysis earlier today because she was lethargic. The ifcwvpks-ys-fbp also states the patient has edema of the lower extremities which is been there for the last several weeks but progressing bilaterally. She also states the patient fell earlier today and struck the back of her head, is been somewhat lethargic since she fell. The patient does take Plavix on a daily basis. The patient's symptoms are moderate, possibly exacerbated after falling, and there are no current alleviating factors. The izcrlaxg-ik-raw also states that the patient is unable to take care of herself at home, she has been trying to take care of her wzuhnx-sx-gvl at home, however, is having difficulty. However, she states that the patient's and will not allow her to go see the primary physician to be placed because they will "lose money ". PFSH Past Medical History Bipolar Disorder: Yes (A/V HALLUCINATION) Anxiety: Yes Depression: Yes Cancer: No Cardiovascular Problems: Yes (heart murmor) COPD: Yes Dialysis: Yes (WEDNESDAYS AND FRIDAYS) Diminished Hearing: No Endocrine: No Immune Disorder: No Implanted Vascular Access Dvce: Yes Kidney Stones: No Musculoskeletal: No Neurologic: No Psychiatric: Yes Reproductive: No Respiratory: Yes (emphysema) Renal Failure: Yes (IS ON DIALYSIS) ?: Not Menopausal: Yes : 4 Para: 3 : 1 Past Surgical History Body Medical Devices: A/V SHUNT- LEFT CHEST Section: Yes Gynecologic Surgery: Yes ( X 3 ) Other Surgery: Yes (cyst ovary drained/ AV- SHUNT- LEFT CHEST-) Social History Alcohol Use: No Tobacco Use: Yes (1/2ppd) Substance Use: Yes (Past hx of crack and marijuana abuse) Allergies-Medications (Allergen,Severity, Reaction): Coded Allergies: No Known Allergies (Unverified , 10/05/16) Reported Meds & Prescriptions Reported Meds & Active Scripts Active Cozaar (Losartan Potassium) 25 Mg Tab 25 Mg PO Q12HR Hydrocodone-Acetaminophen 7.5-325 mg Tab 1 Tab PO Q4H PRN Benztropine (Benztropine Mesylate) 2 Mg Tab 2 Mg PO Q12HR 10 Days Reported Auryxia (Ferric Citrate) 210 Mg Tab 210 Mg PO 2-3 TIMES A DAY Take with meals 2-3 times a day Trazodone (Trazodone HCl) 100 Mg Tab 200 Mg PO HS Atorvastatin (Atorvastatin Calcium) 20 Mg Tab 20 Mg PO HS Neurontin (Gabapentin) 100 Mg Cap 200 Mg PO BID Geodon (Ziprasidone) 80 Mg Cap 80 Mg PO BID Plavix (Clopidogrel Bisulfate) 75 Mg Tab 75 Mg PO DAILY Sensipar (Cinacalcet) 60 Mg Tab 60 Mg PO DAILY With Dinner Reglan (Metoclopramide HCl) 5 Mg Tab 5 Mg PO TIDAC Nephrocaps (B-Complex W/ C & Folic Acid) 1 Cap 1 Cap PO DAILY If on dialysis, take after treatment. Lexapro (Escitalopram Oxalate) 10 Mg Tab 10 Mg PO DAILY Review of Systems Except as stated in HPI: all other systems reviewed are Neg General / Constitutional: No: Fever HENT: Positive: Headaches Cardiovascular: No: Chest Pain or Discomfort Respiratory: No: Shortness of Breath Gastrointestinal: No: Nausea, Vomiting Musculoskeletal: Positive: Weakness, Edema Neurologic: Positive: Weakness, No: Change in Mentation, Slurred Speech, Paresthesia, Sensory Disturbance Psychiatric: Positive: Depression Physical Exam Narrative GENERAL: Awake, alert, 51-year-old female who appears her stated age and is in no acute respiratory distress. SKIN: Focused skin assessment warm/dry. HEAD: Atraumatic. Normocephalic. EYES: Pupils equal and round. Pupils are 3 mm bilateral and reactive. ENT: No nasal bleeding or discharge. Mucous membranes pink and moist. NECK: Trachea midline. No JVD. CARDIOVASCULAR: Regular rate and rhythm. No murmur appreciated. Positive thrill on the left upper chest wall. RESPIRATORY: No accessory muscle use. Clear to auscultation. Breath sounds equal bilaterally. GASTROINTESTINAL: Abdomen soft, non-tender, nondistended. AV fistula left upper extremity with no thrill. MUSCULOSKELETAL: No obvious deformities. No clubbing. No cyanosis. Bilateral lower extension any pitting edema. NEUROLOGICAL: Awake, somewhat lethargic, able to answer questions. Moves all 4 extremities. PSYCHIATRIC: Flat affect. Data Data Last Documented VS Vital Signs Date Time Temp Pulse Resp B/P Pulse Ox O2 Delivery O2 Flow Rate FiO2 10/05/16 13:38 97.6 84 15 145/59 95 Orders Complete Blood Count With Diff (10/05/16 16:39) Comprehensive Metabolic Panel (10/05/16 16:39) Chest, Single Ap (10/05/16 ) Ct Brain W/O Iv Contrast(Rout) (10/05/16 ) Electrocardiogram (10/05/16 ) Vascular Access Team Consult PRN (10/05/16 17:37) Vascular Access Team Consult PRN (10/05/16 17:38) Vascular Poc Ultrasound (10/05/16 ) Admit Order (Ed Use Only) (10/05/16 18:20) Labs Laboratory Tests Test 10/05/16 10/05/16 15:25 17:35 Sodium Level 126 MEQ/L Potassium Level 3.9 MEQ/L Chloride Level 89 MEQ/L Carbon Dioxide Level 27.8 MEQ/L Anion Gap 9 MEQ/L Blood Urea Nitrogen 35 MG/DL Creatinine 7.22 MG/DL Estimat Glomerular Filtration 6 ML/MIN Rate Random Glucose 116 MG/DL Calcium Level 9.6 MG/DL Total Bilirubin 0.7 MG/DL Aspartate Amino Transf 20 U/L (AST/SGOT) Alanine Aminotransferase 17 U/L (ALT/SGPT) Alkaline Phosphatase 116 U/L Total Protein 6.1 GM/DL Albumin 3.0 GM/DL White Blood Count 5.3 TH/MM3 Red Blood Count 3.53 MIL/MM3 Hemoglobin 10.5 GM/DL Hematocrit 31.7 % Mean Corpuscular Volume 89.9 FL Mean Corpuscular Hemoglobin 29.8 PG Mean Corpuscular Hemoglobin 33.2 % Concent Red Cell Distribution Width 21.0 % Platelet Count 156 TH/MM3 Mean Platelet Volume 9.3 FL Neutrophils (%) (Auto) 66.9 % Lymphocytes (%) (Auto) 20.7 % Monocytes (%) (Auto) 10.5 % Eosinophils (%) (Auto) 1.2 % Basophils (%) (Auto) 0.7 % Neutrophils # (Auto) 3.5 TH/MM3 Lymphocytes # (Auto) 1.1 TH/MM3 Monocytes # (Auto) 0.6 TH/MM3 Eosinophils # (Auto) 0.1 TH/MM3 Basophils # (Auto) 0.0 TH/MM3 CBC Comment DIFF FINAL Differential Comment [facility] Medical Decision Making Medical Screen Exam Complete: Yes Emergency Medical Condition: Yes Medical Record Reviewed: Yes Interpretation(s) Chest x-ray reveals cardiomegaly with minimal consolidative changes and pleural effusion on the right. CT of the head reveals negative for acute process. Chest x-ray reveals cardiomegaly with minimal consolidative changes and pleural effusion on the right. Laboratory Tests Test 10/05/16 10/05/16 15:25 17:35 Sodium Level 126 MEQ/L Potassium Level 3.9 MEQ/L Chloride Level 89 MEQ/L Carbon Dioxide Level 27.8 MEQ/L Anion Gap 9 MEQ/L Blood Urea Nitrogen 35 MG/DL Creatinine 7.22 MG/DL Estimat Glomerular Filtration 6 ML/MIN Rate Random Glucose 116 MG/DL Calcium Level 9.6 MG/DL Total Bilirubin 0.7 MG/DL Aspartate Amino Transf 20 U/L (AST/SGOT) Alanine Aminotransferase 17 U/L (ALT/SGPT) Alkaline Phosphatase 116 U/L Total Protein 6.1 GM/DL Albumin 3.0 GM/DL White Blood Count 5.3 TH/MM3 Red Blood Count 3.53 MIL/MM3 Hemoglobin 10.5 GM/DL Hematocrit 31.7 % Mean Corpuscular Volume 89.9 FL Mean Corpuscular Hemoglobin 29.8 PG Mean Corpuscular Hemoglobin 33.2 % Concent Red Cell Distribution Width 21.0 % Platelet Count 156 TH/MM3 Mean Platelet Volume 9.3 FL Neutrophils (%) (Auto) 66.9 % Lymphocytes (%) (Auto) 20.7 % Monocytes (%) (Auto) 10.5 % Eosinophils (%) (Auto) 1.2 % Basophils (%) (Auto) 0.7 % Neutrophils # (Auto) 3.5 TH/MM3 Lymphocytes # (Auto) 1.1 TH/MM3 Monocytes # (Auto) 0.6 TH/MM3 Eosinophils # (Auto) 0.1 TH/MM3 Basophils # (Auto) 0.0 TH/MM3 CBC Comment DIFF FINAL Differential Comment Last Impressions Head CT 10/05/16 0000 Signed Impressions: Service Date/Time: Wednesday, October 05, 2016 16:55 - CONCLUSION: Negative for an acute process. Clinton Parmar MD FACR Chest X-Ray 10/05/16 0000 Signed Impressions: Service Date/Time: Wednesday, October 05, 2016 16:52 - CONCLUSION: Cardiomegaly with minimal consolidative changes and pleural effusion on the right. Clinton Parmar MD FACR EKG reveals normal sinus rhythm with a rate of 64. QTC 509 ms. Q wave noted in lead 3. Differential Diagnosis Differential diagnosis includes depressive disorder NOS, hyponatremia, intracranial hemorrhage, subdural hemorrhage, closed head injury, uremia, ESRD on HD, inability care for self, hypoalbuminemia, dependent edema. Narrative Course IV was established, labs are drawn and sent, and the patient was placed on cardiac telemetry monitoring and continuous pulse oximetry monitoring. EKG was ordered and interpreted. CT the brain was obtained. Chest x-ray was obtained. Electrolytes were sent to lab. I did have social services specialist/case management speak with the patient and the uwymsrua-gr-gui at bedside in regards to the home situation and whether she needs a higher level of care. Case management stroke with the ewtqmhtu-py-htb at bedside. The patient did have home health care, according to the nvuancxc-oa-udg, DCF was notified. Therefore, case management was going to talk with home healthcare regards to the patient's needs. CT the brain is negative. Chest x-ray reveals mild cardiomegaly and small right pleural effusion. The patient is not hypoxic. Case management states that they spoke with the high school social science teacher, they are unsure if the CSF has been notified. However, they do note that the mfwesmdc-po-ktk and son live in a trailer and the patient and her live in a shack behind the trailer without any bathroom services. Case management states he would be an unsafe discharge home and that the patient should be 23 hour observation until they can evaluate if DCF has been notified by the high school social science teacher. Therefore, patient will be a 23 hour observation. Vascular access he was consult to place an IV and the patient. The patient's sodium is low 126, I reviewed the EMR, she did have low sodiums on prior admission as low as 123. Patient will need consultation/23 hour observation for case management to discuss the patient with high school social science teacher/DCF. The on-call medical service was paged for 23 hour observation. Physician Communication Physician Communication The on-call medical service was paged for 23 hour observation. I discussed the patient with Dr. Leroy who agrees with 23 hour observation. Diagnosis Primary Impression: Hyponatremia Additional Impressions: Altered mental status Qualified Code: R41.82 - Altered mental status, unspecified altered mental status type Bipolar 1 disorder, depressed ESRD (end stage renal disease) Admitting Information Admitting Physician Requests: Observation Condition: Stable Jimmy Cuello MD Oct 05, 2016 16:59
--- NOTE | 2016-10-05 17:05 | RADRPT ---
EXAM DATE/TIME: 10/05/2016 16:52 [facility] COMPARISON: CHEST SINGLE AP, September 13, 2016, 4:09. INDICATIONS : Syncopal episode. Patient has been lethargic for the past three days. Complaining of bilateral leg pa in. MEDICAL HISTORY : Chronic obstructive pulmonary disease. SURGICAL HISTORY : Stent. ENCOUNTER: Initial ACUITY: 3 days PAIN SCORE: Non-responsive. LOCATION: Bilateral chest FINDINGS: The heart is enlarged. Minimal consolidative changes are present in the right base, improving from 0 09/13/2016. A small right pleural effusion is noted. The left lung is reasonably clear. The heart i s enlarged. Pulmonary vascularity is normal. CONCLUSION: Cardiomegaly with minimal consolidative changes and pleural effusion on the right. Clinton Parmar MD FACR on October 05, 2016 at 17:01 Board Certified Radiologist. This report was verified electronically.
--- NOTE | 2016-10-05 17:13 | RADRPT ---
EXAM DATE/TIME: 10/05/2016 16:55 [facility] COMPARISON: CT BRAIN W/O CONTRAST, September 08, 2016, 12:23. INDICATIONS : Altered mental status. RADIATION DOSE: 56.35 CTDIvol (mGy) MEDICAL HISTORY : Cardiovascular disease. Renal disease, end stage. SURGICAL HISTORY : AV shunt ENCOUNTER: Initial ACUITY: 1 day PAIN SCALE: 0/10 LOCATION: cranial TECHNIQUE: Multiple contiguous axial images were obtained of the head. Using automated exposure control and adjustment of the mA and/or kV according to patient size, radiation dose was kept as low as reasonably achievable to obtain optimal diagnostic quality images. FINDINGS: CEREBRUM: The ventricles are normal for age. No evidence of midline shift, mass lesion, hemorrha ge or acute infarction. No extra-axial fluid collections are seen. Again seen is the punctate area increased density roof of the third ventricle probably colloid cysts. POSTERIOR FOSSA: The cerebellum and brainstem are intact. The 4th ventricle is midline. The cer ebellopontine angle is unremarkable. EXTRACRANIAL: The visualized portion of the orbits is intact. SKULL: The calvaria is intact. No evidence of skull fracture. CONCLUSION: Negative for an acute process. Clinton Parmar MD FACR on October 05, 2016 at 17:08 Board Certified Radiologist. This report was verified electronically.
[2016-10-05] MEDS ORDERED: TRAZ100T4 PO (17:18)
[2016-10-05] MEDS ORDERED: FERR1TAB16 PO (17:18)
[2016-10-05] MEDS ORDERED: GEOD80CA PO (17:18)
[2016-10-05] MEDS ORDERED: NEUR100C PO (17:18)
[2016-10-05] MEDS ORDERED: ATOR20TA15 PO (17:18)
[2016-10-05] MEDS ORDERED: PLAV75TA29 PO (17:18)
[2016-10-05 17:49] LABS: AUTOMATED NEUTROPHIL # 3.5 TH/MM3 (1.8-7.7); BASOPHIL % 0.7 % (0.0-2.0); EOSINOPHIL # 0.1 TH/MM3 (0-0.4); EOSINOPHIL % 1.2 % (0.0-4.0); HEMATOCRIT 31.7 % (35.0-46.0); HEMO FLAGS DIFF FINAL; LYMPH % 20.7 % (9.0-44.0); LYMPHOCYTE # 1.1 TH/MM3 (1.0-4.8); MEAN CELL VOLUME 89.9 FL (80.0-100.0); MEAN CORPUSCULAR HEMOGLOBIN 29.8 PG (27.0-34.0); MEAN CORPUSCULAR HGB CONC 33.2 % (32.0-36.0); MONO % 10.5 % (0.0-8.0); NEUT % 66.9 % (16.0-70.0); PLATELET COUNT 156 TH/MM3 (150-450); RED BLOOD COUNT 3.53 MIL/MM3 (4.00-5.30); WHITE BLOOD COUNT 5.3 TH/MM3 (4.0-11.0)
[2016-10-05 18:07] LABS: ALT (GPT) 17 U/L (10-53); ANION GAP 9 MEQ/L (5-15); AST (GOT) 20 U/L (15-37); BICARBONATE 27.8 MEQ/L (21.0-32.0); BLOOD UREA NITROGEN 35 MG/DL (7-18); CHLORIDE 89 MEQ/L (98-107); GLOMERULAR FILTRATION RATE 6 ML/MIN (>89); POTASSIUM 3.9 MEQ/L (3.5-5.1); SODIUM (NA) 126 MEQ/L (136-145)
[2016-10-05 18:09] LABS: ALKALINE PHOSPHATASE 116 U/L (45-117); TOTAL BILIRUBIN ADULT 0.7 MG/DL (0.2-1.0)
[2016-10-05 19:02] VITALS: BP 165/79; PULSE 69; RESP 16; O2SAT 96
[2016-10-05] MEDS ORDERED: SODIUM CHLORIDE 0.9% FLUSH 10 ML FLUSH IV FLUSH PRN (19:30)
[2016-10-05] MEDS ORDERED: ACETAMINOPHEN/HYDROcodone 325 MG/10 MG TAB PO PRN (19:30)
[2016-10-05] MEDS ORDERED: ACETAMINOPHEN/HYDROcodone 325 MG/5 MG TAB PO PRN (19:30)
[2016-10-05] MEDS ORDERED: ONDANSETRON HCL 4 MG/2 ML VIAL IVP PRN (19:30)
[2016-10-05] MEDS ORDERED: BISACODYL 10 MG SUPP PR PRN (19:30)
[2016-10-05] MEDS ORDERED: ACETAMINOPHEN 325 MG TAB PO PRN (19:30)
--- NOTE | 2016-10-05 19:40 | HHI.HP ---
HPI Service [facility] Primary Care Physician Unknown Admission Diagnosis hyponatremia, altered mental status, dependent edema, ESRD on HD Diagnoses: (1) Hyponatremia Diagnosis: Principal (2) Encephalopathy Diagnosis: Principal (3) Total self-care deficit Diagnosis: Principal (4) ESRD (end stage renal disease) Diagnosis: Principal (5) HTN (hypertension) Diagnosis: Principal (6) COPD (chronic obstructive pulmonary disease) Diagnosis: Principal (7) Bipolar disorder Diagnosis: Principal Travel History International Travel<30 Days: No Contact w/Intl Traveler <30 Da: No Traveled to Known Affected Are: No History of Present Illness This is a 51-year-old female with a PMH of Anxiety, Depression, Bipolar Disorder , COPD, Tobacco Abuse and ESRD on HD M/W/F who was brought to the ER by Daughter -in-Law for increasing lethargy and possible placement. Per DIL, pt had fall earlier today w/ head trauma, reportedly lethargic since. DIL concerned as pt unable to care for self. Missed HD today secondary to lethargy. Pt unable to provide much history. On arrival, BP 145/59, HR 84, O2 sat 95% on RA, Afebrile. CBC unremarkable. Creatinine 7.22, previously 5.18 on 09/15/16. Na 126. CT Head w/ no acute findings. CXR with minimal consolidative changes and pleural effusion on right. Per report, pt lives w/ in a shack behind Son/DIL's trailer w/ no bathroom facilities and is unable to care for herself. Case Management consulted, attempting to find placement. Recommendation for admission as unsafe discharge at this time. Review of Systems Except as stated in HPI: all other systems reviewed are Neg ROS: 14 point review of systems otherwise negative. Past Family Social History Past Medical History PMH: Anxiety, Depression, Bipolar Disorder, COPD, Tobacco Abuse and ESRD on HD M/W/F Past Surgical History PAST SURGICAL HISTORY: AV Shunt, Allergies: Coded Allergies: No Known Allergies (Unverified , 10/05/16) Family History PAST FAMILY HISTORY: Reviewed. No h/o DM or CAD Social History PAST SOCIAL HISTORY: Negative for alcohol. Smokes 1/2ppd. H/o Crack/ Marijuana. Physical Exam Vital Signs Vital Signs Date Time Temp Pulse Resp B/P Pulse Ox O2 Delivery O2 Flow Rate FiO2 10/05/16 19:02 69 16 165/79 96 Room Air 10/05/16 13:38 97.6 84 15 145/59 95 Physical Exam PE: GENERAL: Middle-aged white female in no acute distress, lethargic, answering questions w/ one-word answers. HEENT: PERRLA, EOMI. No scleral icterus or conjunctival pallor. No lid lag or facial droop. CARDIOVASCULAR: Regular rate and rhythm. No obvious murmurs to auscultation. No chest tenderness to palpation. RESPIRATORY: No obvious rhonchi or wheezing. Clear to auscultation. Breath sounds equal bilaterally. GASTROINTESTINAL: Abdomen soft, non-tender, nondistended. BS normal. MUSCULOSKELETAL: Extremities without clubbing, cyanosis, or edema. No obvious deformities. NEUROLOGICAL: Lethargic but arousable, requires repeated questioning. No focal neurologic deficits. Moving both upper and lower extremities spontaneously. Laboratory Laboratory Tests Test 10/05/16 10/05/16 15:25 17:35 Sodium Level 126 Potassium Level 3.9 Chloride Level 89 Carbon Dioxide Level 27.8 Anion Gap 9 Blood Urea Nitrogen 35 Creatinine 7.22 Estimat Glomerular Filtration 6 Rate Random Glucose 116 Calcium Level 9.6 Total Bilirubin 0.7 Aspartate Amino Transf 20 (AST/SGOT) Alanine Aminotransferase 17 (ALT/SGPT) Alkaline Phosphatase 116 Total Protein 6.1 Albumin 3.0 White Blood Count 5.3 Red Blood Count 3.53 Hemoglobin 10.5 Hematocrit 31.7 Mean Corpuscular Volume 89.9 Mean Corpuscular Hemoglobin 29.8 Mean Corpuscular Hemoglobin 33.2 Concent Red Cell Distribution Width 21.0 Platelet Count 156 Mean Platelet Volume 9.3 Neutrophils (%) (Auto) 66.9 Lymphocytes (%) (Auto) 20.7 Monocytes (%) (Auto) 10.5 Eosinophils (%) (Auto) 1.2 Basophils (%) (Auto) 0.7 Neutrophils # (Auto) 3.5 Lymphocytes # (Auto) 1.1 Monocytes # (Auto) 0.6 Eosinophils # (Auto) 0.1 Basophils # (Auto) 0.0 CBC Comment DIFF FINAL Differential Comment Result Diagram: 10/05/16 1735 10/05/16 1525 Assessment and Plan Problem List: (1) Encephalopathy ICD Code: G93.40 Status: Acute (2) Hyponatremia ICD Code: E87.1 Status: Acute (3) Total self-care deficit ICD Code: R41.89 Status: Acute (4) Bipolar disorder ICD Code: F31.9 Status: Acute (5) HTN (hypertension) ICD Code: I10 Status: Acute (6) COPD (chronic obstructive pulmonary disease) ICD Code: J44.9 Status: Acute (7) Tobacco abuse ICD Code: Z72.0 Status: Acute Assessment and Plan A/P: 1. Encephalopathy: s/p fall w/ head trauma, noted to be lethargic per DIL. CT Head w/ no acute findings, images reviewed by me. Labs essentially at baseline. Pt arousable, but answering few questions, very poor historian. Will admit for Observation, monitor. H/o Crack/Marijuana, will check Urine Drug Screen. 2. Hyponatremia: Na 126, chronic hyponatremia based on review of previous labs. IVF for hydration, caution w/ ESRD. Repeat labs in am. 3. Total Self Care Deficit: pt lives at home w/ in shack behind trailer of Son/DIL, DIL reports inability to care for pt, pt unable to care for self. Case Management consulted, recommendation for admission pending placement as unsafe discharge home at this time. 4. Bipolar Disorder: Stable. Resume home medications. 5. HTN: BP 140-160's, will monitor, resume home medications. 6. ESRD on HD: M/W/F. Missed HD today in light of lethargy per report. Will consult Nephrology to resume HD as needed. 7. Tobacco Abuse: Counselled. NicoDerm if needed. 8. DVT Prophylaxis: SCD/Teds. 9. Social work for d/c planning as needed. 10. Case discussed w/ ER physician at length. Carmen Helton MD Oct 05, 2016 19:40
[2016-10-05] MEDS ORDERED: RESP: ALBUTEROL 2.5 MG/IPRATROPIUM 0.5 MG NEB (PRN) NEB (19:45)
[2016-10-05] MEDS: SODIUM CHLORIDE 0.9% FLUSH 10 ML FLUSH IV FLUSH SCH (21:00)
[2016-10-05] MEDS: traZODone HCL 100 MG TAB PO SCH (23:02)
[2016-10-05] MEDS: GABAPENTIN 100 MG CAP PO SCH (23:02)
[2016-10-05] MEDS: ATORVASTATIN 20 MG TAB PO SCH (23:02)
[2016-10-06] MEDS: ZIPRASIDONE HCL 80 MG CAP PO SCH ×3 (00:30→18:06)
[2016-10-06] MEDS: BENZTROPINE MESYLATE 2 MG TAB PO SCH ×3 (00:30→20:52)
[2016-10-06 01:29] VITALS: BP 129/61; PULSE 63; RESP 13; TEMP 98; O2SAT 86; O2SAT 94
[2016-10-06 03:39] VITALS: BP 153/67; PULSE 78; RESP 18; TEMP 98.7; O2SAT 98
--- NOTE | 2016-10-06 07:57 | HHI.PR ---
Subjective Remarks This is a 51-year-old female with a PMH of Anxiety, Depression, Bipolar Disorder , COPD, Tobacco Abuse and ESRD on HD M/W/F who was brought to the ER by [id number] for increasing lethargy and possible placement. Per DIL, pt had fall yesterday w/ head trauma, reportedly lethargic since. DIL concerned as pt unable to care for self. Missed HD on the day of admission secondary to lethargy. Pt unable to provide much history. On arrival, BP 145/59, HR 84, O2 sat 95% on RA, Afebrile. CBC unremarkable. Creatinine 7.22, previously 5.18 on 09/15/16. Na 126. CT Head w/ no acute findings. CXR with minimal consolidative changes and pleural effusion on right. Per report, pt lives w/ in a shack behind Son/DIL's trailer w/ no bathroom facilities and is unable to care for herself. Case Management consulted, attempting to find placement. Recommendation for admission as unsafe discharge at this time. Seen in the room stable discussed with patient and her , in the room she has Tobacco dependence. awaiting for placement. Objective Vital Signs Date Time Temp Pulse Resp B/P Pulse Ox O2 Delivery O2 Flow Rate FiO2 10/06/16 03:39 98.7 78 18 153/67 98 10/06/16 01:29 98.0 63 13 129/61 86 10/05/16 19:02 69 16 165/79 96 Room Air 10/05/16 13:38 97.6 84 15 145/59 95 Result Diagram: 10/05/16 1735 10/05/16 1525 Imaging Last Impressions Head CT 10/05/16 0000 Signed Impressions: Service Date/Time: Wednesday, October 05, 2016 16:55 - CONCLUSION: Negative for an acute process. Clinton Parmar MD FACR Chest X-Ray 10/05/16 0000 Signed Impressions: Service Date/Time: Wednesday, October 05, 2016 16:52 - CONCLUSION: Cardiomegaly with minimal consolidative changes and pleural effusion on the right. Clinton Parmar MD FACR Procedures No procedures performed. Other Results Laboratory Tests Test 10/05/16 10/05/16 15:25 17:35 Sodium Level 126 MEQ/L Potassium Level 3.9 MEQ/L Chloride Level 89 MEQ/L Carbon Dioxide Level 27.8 MEQ/L Anion Gap 9 MEQ/L Blood Urea Nitrogen 35 MG/DL Creatinine 7.22 MG/DL Estimat Glomerular Filtration 6 ML/MIN Rate Random Glucose 116 MG/DL Calcium Level 9.6 MG/DL Total Bilirubin 0.7 MG/DL Aspartate Amino Transf 20 U/L (AST/SGOT) Alanine Aminotransferase 17 U/L (ALT/SGPT) Alkaline Phosphatase 116 U/L Total Protein 6.1 GM/DL Albumin 3.0 GM/DL White Blood Count 5.3 TH/MM3 Red Blood Count 3.53 MIL/MM3 Hemoglobin 10.5 GM/DL Hematocrit 31.7 % Mean Corpuscular Volume 89.9 FL Mean Corpuscular Hemoglobin 29.8 PG Mean Corpuscular Hemoglobin 33.2 % Concent Red Cell Distribution Width 21.0 % Platelet Count 156 TH/MM3 Mean Platelet Volume 9.3 FL Neutrophils (%) (Auto) 66.9 % Lymphocytes (%) (Auto) 20.7 % Monocytes (%) (Auto) 10.5 % Eosinophils (%) (Auto) 1.2 % Basophils (%) (Auto) 0.7 % Neutrophils # (Auto) 3.5 TH/MM3 Lymphocytes # (Auto) 1.1 TH/MM3 Monocytes # (Auto) 0.6 TH/MM3 Eosinophils # (Auto) 0.1 TH/MM3 Basophils # (Auto) 0.0 TH/MM3 CBC Comment DIFF FINAL Differential Comment Objective Remarks GENERAL: Middle-aged white female in no acute distress, lethargic, answering questions w/ one-word answers. HEENT: PERRLA, EOMI. No scleral icterus or conjunctival pallor. No lid lag or facial droop. CARDIOVASCULAR: Regular rate and rhythm. No obvious murmurs to auscultation. No chest tenderness to palpation. RESPIRATORY: No obvious rhonchi or wheezing. Clear to auscultation. Breath sounds equal bilaterally. GASTROINTESTINAL: Abdomen soft, non-tender, nondistended. BS normal. MUSCULOSKELETAL: Extremities without clubbing, cyanosis, or edema. No obvious deformities. NEUROLOGICAL: Lethargic but arousable, requires repeated questioning. No focal neurologic deficits. Moving both upper and lower extremities spontaneously. Medications and IVs Current Medications Medications (Trade) Dose Ordered Sig/Lora Route Start Time Stop Time Status Last Admin (NS Flush) 2 ml UNSCH PRN IV FLUSH 10/05/16 19:30 (NS Flush) 2 ml BID IV FLUSH 10/05/16 21:00 (Zofran Inj) 4 mg Q6H PRN IVP 10/05/16 19:30 (Dulcolax Supp) 10 mg DAILY PRN AR 10/05/16 19:30 (Tylenol) 650 mg Q6H PRN PO 10/05/16 19:30 ([place] 5-325 Mg) 1 tab Q4H PRN PO 10/05/16 19:30 ([place] 10-325 Mg) 1 tab Q4H PRN PO 10/05/16 19:30 (Lipitor) 20 mg HS PO 10/05/16 21:00 10/05/16 23:02 (Nephrocaps) 1 cap DAILY PO 10/06/16 09:00 (Cogentin) 2 mg Q12HR PO 10/05/16 21:00 10/06/16 00:30 (Plavix) 75 mg DAILY PO 10/06/16 09:00 (Lexapro) 10 mg DAILY PO 10/06/16 09:00 (Neurontin) 200 mg BID PO 10/05/16 21:00 10/05/16 23:02 (Desyrel) 200 mg HS PO 10/05/16 21:00 10/05/16 23:02 (Geodon) 80 mg BIDPC PO 10/05/16 21:00 10/06/16 00:30 (Sensipar) 60 mg DAILY PO 10/06/16 09:00 A/P Assessment and Plan 1. Encephalopathy: s/p fall w/ head trauma, noted to be lethargic per DIL. CT Head w/ no acute findings, images reviewed by me. Labs essentially at baseline. completely alert and oriented x 3. Will admit for Observation, monitor. H/o Crack/Marijuana, Drug screen Negative. 2. Hyponatremia: chronic Nephrology specialist following 3. Total Self Care Deficit: pt lives at home w/ in shack behind trailer of Son/DIL, DIL reports inability to care for pt, pt unable to care for self. Case Management consulted, recommendation for admission pending placement as unsafe discharge home at this time. 4. Bipolar Disorder: Stable. Resume home medications. 5. HTN: BP 140-160's, will monitor, resume home medications. 6. ESRD on HD: M/W/F. will have Hemodialysis tomorrow. 7. Tobacco Abuse: recommended to stop smoking. DVT Prophylaxis: SCD/Teds. Social work for d/c planning as needed. Discharge Planning awaiting final by Nephrology specialist for discharge. Ramon Ambriz MD Oct 06, 2016 07:57
[2016-10-06 08:13] VITALS: BP 142/61; PULSE 66; RESP 18; TEMP 97.2; O2SAT 96
[2016-10-06 09:08] LABS: BASOPHIL % 0.6 % (0.0-2.0); EOSINOPHIL % 0.8 % (0.0-4.0); HEMATOCRIT 31.3 % (35.0-46.0); HEMO FLAGS DIFF FINAL; LYMPH % 14.8 % (9.0-44.0); LYMPHOCYTE # 0.8 TH/MM3 (1.0-4.8); MEAN CELL VOLUME 88.4 FL (80.0-100.0); MEAN CORPUSCULAR HEMOGLOBIN 29.9 PG (27.0-34.0); MEAN CORPUSCULAR HGB CONC 33.8 % (32.0-36.0); MONO % 9.6 % (0.0-8.0); NEUT % 74.2 % (16.0-70.0); PLATELET COUNT 135 TH/MM3 (150-450); RED BLOOD COUNT 3.54 MIL/MM3 (4.00-5.30); RED CELL DISTRIBUTION WIDTH 20.5 % (11.6-17.2); WHITE BLOOD COUNT 5.4 TH/MM3 (4.0-11.0)
[2016-10-06 09:09] LABS: ALKALINE PHOSPHATASE 121 U/L (45-117); ALT (GPT) 15 U/L (10-53); ANION GAP 12 MEQ/L (5-15); AST (GOT) 21 U/L (15-37); BICARBONATE 26.4 MEQ/L (21.0-32.0); BLOOD UREA NITROGEN 41 MG/DL (7-18); CHLORIDE 88 MEQ/L (98-107); GLOMERULAR FILTRATION RATE 6 ML/MIN (>89); POTASSIUM 4.5 MEQ/L (3.5-5.1); SODIUM (NA) 126 MEQ/L (136-145); TOTAL BILIRUBIN ADULT 0.7 MG/DL (0.2-1.0)
[2016-10-06] MEDS: VITAMIN B CMPLX/VITC/FOLIC AC CAP PO SCH (10:21)
[2016-10-06] MEDS: CLOPIDOGREL 75 MG TAB PO SCH (10:22)
[2016-10-06] MEDS: GABAPENTIN 100 MG CAP PO SCH ×2 (10:22→20:52)
[2016-10-06] MEDS: ESCITALOPRAM OXALATE 10 MG TAB PO SCH (10:22)
[2016-10-06] MEDS: CINACALCET HYDROCHLORIDE 30 MG TAB PO SCH (10:22)
[2016-10-06] MEDS: SODIUM CHLORIDE 0.9% FLUSH 10 ML FLUSH IV FLUSH SCH ×2 (10:23→20:53)
[2016-10-06 10:40] LABS: BACTERIA, URINE RARE /hpf; BLOOD, URINE NEG (NEG); GLUCOSE,URINE TRACE mg/dL (NEG); KETONE, URINE NEG (NEG); MUCUS URINE FEW /lpf (OCC); NITRITE,URINE NEG (NEG); PH, URINE 7.5 (5.0-8.5); SQUAMOUS EPITHELIAL CELL URINE 1 /hpf (0-5); URINE COLOR YELLOW (YELLW/STRAW)
[2016-10-06 10:43] LABS: COMMENT (UR) CATH-CULTURE IND; CULTURE IF INDICATED CATH CULTURE IND
[2016-10-06 10:47] LABS: AMPHETAMINE, URINE NEG (NEG); BARBITURATES, URINE NEG (NEG); COCAINE, URINE NEG (NEG)
[2016-10-06 11:03] VITALS: BP 143/63; PULSE 68; RESP 18; TEMP 96.8; O2SAT 91
[2016-10-06 16:05] VITALS: BP 177/69; PULSE 73; RESP 18; TEMP 97.8; O2SAT 93
[2016-10-06] MEDS: traZODone HCL 100 MG TAB PO SCH (20:52)
[2016-10-06] MEDS: ATORVASTATIN 20 MG TAB PO SCH (20:52)
[2016-10-06 23:54] VITALS: BP 161/68; PULSE 65; RESP 20; TEMP 98.1; O2SAT 97
[2016-10-07 01:55] VITALS: BP 153/69; PULSE 70; RESP 20; TEMP 97.9; O2SAT 95
--- NOTE | 2016-10-07 02:51 | RADRPT ---
EXAM DATE/TIME: 10/07/2016 02:11 [facility] COMPARISON: No previous studies available for comparison. INDICATIONS : Right hip pain. MEDICAL HISTORY : Cardiovascular disease. Renal disease, end stage. SURGICAL HISTORY : AV shunt ENCOUNTER: Initial ACUITY: 1 day PAIN SCORE: 5/10 LOCATION: Right pelvis FINDINGS: View of the right hip and pelvis was obtained. Femoral neck is intact. No fracture is seen. The so ft tissues are unremarkable except for bilateral iliacs stents. CONCLUSION: 1. No acute bony abnormality. Bilateral iliac stents. Armando Lynne MD on October 07, 2016 at 2:47 Board Certified Radiologist. This report was verified electronically.
[2016-10-07 04:42] VITALS: BP 151/71; PULSE 68; RESP 20; TEMP 97.5; O2SAT 95
[2016-10-07 07:58] VITALS: BP 169/89; PULSE 74; RESP 17; TEMP 97.5; O2SAT 90
--- NOTE | 2016-10-07 07:59 | EKG ---
Date Performed: 10/05/2016 Time Performed: 17:47:10 PTAGE: 51 years EKG: Sinus rhythm PROLONGED QT INTERVAL ABNORMAL ECG Compared to PREVIOUS TRACING , the patient has developed prolongation of the QT interval but otherwis e no change. PREVIOUS TRACIN09/07/2016 23.12 DOCTOR: Melonie Beltrán Interpretating Date/Time 10/07/2016 07:57:02
[2016-10-07] MEDS: SODIUM CHLORIDE 0.9% FLUSH 10 ML FLUSH IV FLUSH SCH ×2 (09:00→20:29)
[2016-10-07] MEDS: ESCITALOPRAM OXALATE 10 MG TAB PO SCH (09:17)
[2016-10-07] MEDS: VITAMIN B CMPLX/VITC/FOLIC AC CAP PO SCH (09:17)
[2016-10-07] MEDS: GABAPENTIN 100 MG CAP PO SCH ×2 (09:17→20:29)
[2016-10-07] MEDS: CINACALCET HYDROCHLORIDE 30 MG TAB PO SCH (09:17)
[2016-10-07] MEDS: ZIPRASIDONE HCL 80 MG CAP PO SCH ×2 (09:17→19:39)
[2016-10-07] MEDS: BENZTROPINE MESYLATE 2 MG TAB PO SCH ×2 (09:17→20:29)
[2016-10-07] MEDS: CLOPIDOGREL 75 MG TAB PO SCH (09:17)
[2016-10-07] MEDS ORDERED: SODIUM CHLOR 0.9% 1000 ML INJ 1,000 ML IV PRN ×3 (10:43)
[2016-10-07] MEDS ORDERED: GELATIN 12 MM/7 MM FOAM TOP PRN (10:45)
[2016-10-07] MEDS ORDERED: NITROGLYCERIN 0.4 MG SL 25 TABS/BTL SL PRN (10:45)
[2016-10-07] MEDS ORDERED: HEPARIN SODIUM - IV 10,000 UNITS/10 ML VIAL IVF PRN (10:45)
[2016-10-07] MEDS ORDERED: MANNITOL 12.5 GM/50 ML VIAL IV PRN (10:45)
[2016-10-07] MEDS ORDERED: ALBUMIN HUMAN 25% 25 GM/100 ML BAGP IV PRN (10:45)
[2016-10-07] MEDS ORDERED: ONDANSETRON HCL 4 MG/2 ML VIAL IV PRN (10:45)
[2016-10-07] MEDS ORDERED: HEPARIN SODIUM - IV 10,000 UNITS/10 ML VIAL PRN (10:45)
[2016-10-07] MEDS ORDERED: ACETAMINOPHEN 325 MG TAB PO PRN (10:45)
[2016-10-07] MEDS ORDERED: EPOETIN ALFA 10,000 UNITS/ML VIAL IV PRN (10:45)
[2016-10-07] MEDS ORDERED: diphenhydrAMINE HCL 25 MG CAP PO PRN (10:45)
[2016-10-07] MEDS ORDERED: cloNIDine HCL 0.1 MG TAB PO PRN (10:45)
[2016-10-07] MEDS ORDERED: SODIUM CHLORIDE 0.9% FLUSH 10 ML FLUSH IV FLUSH PRN (10:45)
[2016-10-07] MEDS ORDERED: GENTAMICIN SULFATE (DIALYSIS USE ONLY) 20 MG/2 ML VIAL IV PRN (10:45)
--- NOTE | 2016-10-07 11:01 | PD.CONS ---
HPI Service Nephrology Consult Requested By Dr. Barrios Reason for Consult ESRD patient known to Dr. Vinson Primary Care Physician Unknown History of Present Illness Patient is a 51-year-old female was on hemodialysis past 10 years she stated that it started in [place] and not she moved to [place]. She goes to the [facility] with Dr. Vinson, she missed her dialysis on Wednesday she is feeling tired the she has AV graft in the left upper chest for access She has hoarse voice and talks at the low voice Review of Systems Constitutional: COMPLAINS OF: Fatigue Cardiovascular: COMPLAINS OF: Lower Extremity Edema Gastrointestinal: COMPLAINS OF: Nausea Past Family Social History Allergies: Coded Allergies: No Known Allergies (Unverified , 10/05/16) Past Medical History ESRD Hypertension COPD Anxiety Depression Bipolar disorder Smoking Past Surgical History AV graft in left upper chest Previously failed to access in arm Ovarian cyst drainage Reported Medications Reported Meds & Active Scripts Active Cozaar (Losartan Potassium) 25 Mg Tab 25 Mg PO Q12HR Hydrocodone-Acetaminophen 7.5-325 mg Tab 1 Tab PO Q4H PRN Benztropine (Benztropine Mesylate) 2 Mg Tab 2 Mg PO Q12HR 10 Days Reported Auryxia (Ferric Citrate) 210 Mg Tab 210 Mg PO 2-3 TIMES A DAY Take with meals 2-3 times a day Trazodone (Trazodone HCl) 100 Mg Tab 200 Mg PO HS Atorvastatin (Atorvastatin Calcium) 20 Mg Tab 20 Mg PO HS Neurontin (Gabapentin) 100 Mg Cap 200 Mg PO BID Geodon (Ziprasidone) 80 Mg Cap 80 Mg PO BID Plavix (Clopidogrel Bisulfate) 75 Mg Tab 75 Mg PO DAILY Sensipar (Cinacalcet) 60 Mg Tab 60 Mg PO DAILY With Dinner Reglan (Metoclopramide HCl) 5 Mg Tab 5 Mg PO TIDAC Nephrocaps (B-Complex W/ C & Folic Acid) 1 Cap 1 Cap PO DAILY If on dialysis, take after treatment. Lexapro (Escitalopram Oxalate) 10 Mg Tab 10 Mg PO DAILY Active Ordered Medications Current Medications Medications (Trade) Dose Ordered Sig/Lora Route Start Time Stop Time Status Last Admin (NS Flush) 2 ml UNSCH PRN IV FLUSH 10/05/16 19:30 (NS Flush) 2 ml BID IV FLUSH 10/05/16 21:00 10/07/16 09:00 (Zofran Inj) 4 mg Q6H PRN IVP 10/05/16 19:30 (Dulcolax Supp) 10 mg DAILY PRN GA 10/05/16 19:30 (Tylenol) 650 mg Q6H PRN PO 10/05/16 19:30 ([place] 5-325 Mg) 1 tab Q4H PRN PO 10/05/16 19:30 ([place] 10-325 Mg) 1 tab Q4H PRN PO 10/05/16 19:30 (Lipitor) 20 mg HS PO 10/05/16 21:00 10/06/16 20:52 (Nephrocaps) 1 cap DAILY PO 10/06/16 09:00 10/07/16 09:17 (Cogentin) 2 mg Q12HR PO 10/05/16 21:00 10/07/16 09:17 (Plavix) 75 mg DAILY PO 10/06/16 09:00 10/07/16 09:17 (Lexapro) 10 mg DAILY PO 10/06/16 09:00 10/07/16 09:17 (Neurontin) 200 mg BID PO 10/05/16 21:00 10/07/16 09:17 (Desyrel) 200 mg HS PO 10/05/16 21:00 10/06/16 20:52 (Geodon) 80 mg BIDPC PO 10/05/16 21:00 10/07/16 09:17 Cinacalcet 60 mg 60 mg DAILY PO 10/06/16 09:00 10/07/16 09:17 (NS 1000 ml Inj) 1,000 ml @ 0 mls/hr Q0M PRN IV 10/07/16 10:43 UNV Heparin Sodium (Porcine) 8000 units 8,000 units UNSCH PRN IVF 10/07/16 10:45 UNV Sodium Chloride 1,000 ml @ 200 mls/hr Q5H PRN IV 10/07/16 10:43 UNV (NS 1000 ml Inj) 1,000 ml @ 0 mls/hr Q0M PRN IV 10/07/16 10:43 UNV (Mannitol Inj) 12.5 gm UNSCH PRN IV 10/07/16 10:45 UNV (Albumin 25% Inj) 25 gm UNSCH PRN IV 10/07/16 10:45 UNV (NS Flush) 5 ml UNSCH PRN IV FLUSH 10/07/16 10:45 UNV (Heparin Inj) UNSCH PRN .XX 10/07/16 10:45 UNV (Gentamicin (Dialysis) Inj) 20 mg UNSCH PRN IV 10/07/16 10:45 UNV (Zofran Inj) 4 mg UNSCH PRN IV 10/07/16 10:45 UNV (Tylenol) 650 mg UNSCH PRN PO 10/07/16 10:45 UNV (Benadryl) 25 mg UNSCH PRN PO 10/07/16 10:45 UNV (Nitrostat Sl) 0.4 mg UNSCH PRN SL 10/07/16 10:45 UNV (Catapres) 0.1 mg UNSCH PRN PO 10/07/16 10:45 UNV (Epogen Inj) 4,000 units UNSCH PRN IV 10/07/16 10:45 UNV (Gelfoam 12 Mm/7 Mm Top) 1 foam UNSCH PRN TOP 10/07/16 10:45 UNV Family History Noncontributory Social History Smoked half-pack per day of cigarettes, previous history of crack/cocaine use Physical Exam Vital Signs Vital Signs Date Time Temp Pulse Resp B/P Pulse Ox O2 Delivery O2 Flow Rate FiO2 10/07/16 07:58 97.5 74 17 169/89 90 10/07/16 04:42 97.5 68 20 151/71 95 10/07/16 01:55 97.9 70 20 153/69 95 10/06/16 23:54 98.1 65 20 161/68 97 10/06/16 16:05 97.8 73 18 177/69 93 10/06/16 11:03 96.8 68 18 143/63 91 Physical Exam GENERAL: Well-nourished, well-developed patient. SKIN: Warm and dry. HEAD: Normocephalic. EYES: No scleral icterus. No injection or drainage. NECK: Supple, trachea midline. No JVD or lymphadenopathy. CARDIOVASCULAR: Regular rate and rhythm without murmurs, gallops, or rubs. AV graft left upper chest RESPIRATORY: Breath sounds equal bilaterally. No accessory muscle use. GASTROINTESTINAL: Abdomen soft, non-tender, nondistended. EXTREMITIES: No cyanosis, or edema. NEUROLOGICAL: Awake, alert, and oriented x 3. Non-focal. Laboratory Date/Time Procedure Status Source Growth 10/06/16 06:40 Urine Culture Received Urine Catheterized Urine Pending Result Diagram: 10/06/16 0826 10/06/16 0820 Imaging Last Impressions Hip and Pelvis X-Ray 10/07/16 0000 Signed Impressions: Service Date/Time: Friday, October 07, 2016 02:11 - CONCLUSION: 1. No acute bony abnormality. Bilateral iliac stents. Armando Lynne MD Head CT 10/05/16 0000 Signed Impressions: Service Date/Time: Wednesday, October 05, 2016 16:55 - CONCLUSION: Negative for an acute process. Clinton Parmar MD FACR Chest X-Ray 10/05/16 0000 Signed Impressions: Service Date/Time: Wednesday, October 05, 2016 16:52 - CONCLUSION: Cardiomegaly with minimal consolidative changes and pleural effusion on the right. Clinton Parmar MD FACR Assessment and Plan Problem List: (1) ESRD (end stage renal disease) Plan: Patient will receive hemodialysis today and monitor situation she wants to go home and told her to follow-up with Dr. Vinson After receiving her dialysis today and be compliant with her treatment (2) Hyponatremia Plan: We will treat with hemodialysis (3) Bipolar disorder Plan: Stable (4) COPD (chronic obstructive pulmonary disease) Plan: Chronic condition Naseem Valentin MD Oct 07, 2016 11:01
[2016-10-07 11:28] VITALS: BP 155/69; PULSE 67; RESP 16; TEMP 97.8; O2SAT 82
--- NOTE | 2016-10-07 14:15 | HHI.PR ---
Subjective Remarks This is a 51-year-old female with a PMH of Anxiety, Depression, Bipolar Disorder , COPD, Tobacco Abuse and ESRD on HD M/W/F who was brought to the ER by [id number] for increasing lethargy and possible placement. Per DIL, pt had fall yesterday w/ head trauma, reportedly lethargic since. DIL concerned as pt unable to care for self. Missed HD on the day of admission secondary to lethargy. Pt unable to provide much history. On arrival, BP 145/59, HR 84, O2 sat 95% on RA, Afebrile. CBC unremarkable. Creatinine 7.22, previously 5.18 on 09/15/16. Na 126. CT Head w/ no acute findings. CXR with minimal consolidative changes and pleural effusion on right. Per report, pt lives w/ in a shack behind Son/DIL's trailer w/ no bathroom facilities and is unable to care for herself. Discussed with nurse Miss Nguyen appreciated no new issues, as per Nephrology specialist Doctor Deepak will have Dialysis today and may be discharged after Dialysis but no safe discharge yet DCF involved no Nausea, vomit or diarrhea but loss of appetite evident. Objective Vital Signs Date Time Temp Pulse Resp B/P Pulse Ox O2 Delivery O2 Flow Rate FiO2 10/07/16 11:28 97.8 67 16 155/69 82 10/07/16 07:58 97.5 74 17 169/89 90 10/07/16 04:42 97.5 68 20 151/71 95 10/07/16 01:55 97.9 70 20 153/69 95 10/06/16 23:54 98.1 65 20 161/68 97 10/06/16 16:05 97.8 73 18 177/69 93 Result Diagram: 10/06/16 0826 10/06/16 0820 Imaging Last Impressions Hip and Pelvis X-Ray 10/07/16 0000 Signed Impressions: Service Date/Time: Friday, October 07, 2016 02:11 - CONCLUSION: 1. No acute bony abnormality. Bilateral iliac stents. Armando Lynne MD Head CT 10/05/16 0000 Signed Impressions: Service Date/Time: Wednesday, October 05, 2016 16:55 - CONCLUSION: Negative for an acute process. Clinton Parmar MD FACR Chest X-Ray 10/05/16 0000 Signed Impressions: Service Date/Time: Wednesday, October 05, 2016 16:52 - CONCLUSION: Cardiomegaly with minimal consolidative changes and pleural effusion on the right. Clinton Parmar MD FACR Procedures No procedures performed. Other Results Laboratory Tests Test 10/06/16 10/06/16 10/06/16 06:40 08:20 08:26 Urine Color YELLOW Urine Turbidity CLEAR Urine pH 7.5 Urine Specific [place] 1.004 Urine Protein 300 mg/dL Urine Glucose (UA) TRACE mg/dL Urine Ketones NEG mg/dL Urine Occult Blood NEG Urine Nitrite NEG Urine Bilirubin NEG Urine Urobilinogen LESS THAN 2.0 MG/DL Urine Leukocyte Esterase NEG Urine RBC 1 /hpf Urine WBC 1 /hpf Urine Squamous Epithelial 1 /hpf Cells Urine Bacteria RARE /hpf Urine Mucus FEW /lpf Microscopic Urinalysis Comment CATH-CULTURE IND Urine Opiates Screen NEG Urine Barbiturates Screen NEG Urine Amphetamines Screen NEG Urine Benzodiazepines Screen NEG Urine Cocaine Screen NEG Urine Cannabinoids Screen NEG Sodium Level 126 MEQ/L Potassium Level 4.5 MEQ/L Chloride Level 88 MEQ/L Carbon Dioxide Level 26.4 MEQ/L Anion Gap 12 MEQ/L Blood Urea Nitrogen 41 MG/DL Creatinine 7.64 MG/DL Estimat Glomerular Filtration 6 ML/MIN Rate Random Glucose 86 MG/DL Calcium Level 9.3 MG/DL Total Bilirubin 0.7 MG/DL Aspartate Amino Transf 21 U/L (AST/SGOT) Alanine Aminotransferase 15 U/L (ALT/SGPT) Alkaline Phosphatase 121 U/L Total Protein 6.1 GM/DL Albumin 3.0 GM/DL White Blood Count 5.4 TH/MM3 Red Blood Count 3.54 MIL/MM3 Hemoglobin 10.6 GM/DL Hematocrit 31.3 % Mean Corpuscular Volume 88.4 FL Mean Corpuscular Hemoglobin 29.9 PG Mean Corpuscular Hemoglobin 33.8 % Concent Red Cell Distribution Width 20.5 % Platelet Count 135 TH/MM3 Mean Platelet Volume 8.6 FL Neutrophils (%) (Auto) 74.2 % Lymphocytes (%) (Auto) 14.8 % Monocytes (%) (Auto) 9.6 % Eosinophils (%) (Auto) 0.8 % Basophils (%) (Auto) 0.6 % Neutrophils # (Auto) 4.0 TH/MM3 Lymphocytes # (Auto) 0.8 TH/MM3 Monocytes # (Auto) 0.5 TH/MM3 Eosinophils # (Auto) 0.0 TH/MM3 Basophils # (Auto) 0.0 TH/MM3 CBC Comment DIFF FINAL Differential Comment Objective Remarks GENERAL: Obesity, alert and oriented x 3. HEENT: PERRLA, EOMI. No scleral icterus or conjunctival pallor. No lid lag or facial droop. CARDIOVASCULAR: Regular rate and rhythm. No obvious murmurs to auscultation. No chest tenderness to palpation. RESPIRATORY: No obvious rhonchi or wheezing. Clear to auscultation. Breath sounds equal bilaterally. GASTROINTESTINAL: Abdomen soft, non-tender, nondistended. BS normal. MUSCULOSKELETAL: Extremities without clubbing, cyanosis, or edema. No obvious deformities. NEUROLOGICAL: Alert and oriented no focal deficits. Medications and IVs Current Medications Medications (Trade) Dose Ordered Sig/Lora Route Start Time Stop Time Status Last Admin (NS Flush) 2 ml UNSCH PRN IV FLUSH 10/05/16 19:30 (NS Flush) 2 ml BID IV FLUSH 10/05/16 21:00 10/07/16 09:00 (Zofran Inj) 4 mg Q6H PRN IVP 10/05/16 19:30 (Dulcolax Supp) 10 mg DAILY PRN MT 10/05/16 19:30 (Tylenol) 650 mg Q6H PRN PO 10/05/16 19:30 ([place] 5-325 Mg) 1 tab Q4H PRN PO 10/05/16 19:30 ([place] 10-325 Mg) 1 tab Q4H PRN PO 10/05/16 19:30 (Lipitor) 20 mg HS PO 10/05/16 21:00 10/06/16 20:52 (Nephrocaps) 1 cap DAILY PO 10/06/16 09:00 10/07/16 09:17 (Cogentin) 2 mg Q12HR PO 10/05/16 21:00 10/07/16 09:17 (Plavix) 75 mg DAILY PO 10/06/16 09:00 10/07/16 09:17 (Lexapro) 10 mg DAILY PO 10/06/16 09:00 10/07/16 09:17 (Neurontin) 200 mg BID PO 10/05/16 21:00 10/07/16 09:17 (Desyrel) 200 mg HS PO 10/05/16 21:00 10/06/16 20:52 (Geodon) 80 mg BIDPC PO 10/05/16 21:00 10/07/16 09:17 Cinacalcet 60 mg 60 mg DAILY PO 10/06/16 09:00 10/07/16 09:17 (NS 1000 ml Inj) 1,000 ml @ 0 mls/hr Q0M PRN IV 10/07/16 10:43 Heparin Sodium (Porcine) 8000 units 8,000 units UNSCH PRN IVF 10/07/16 10:45 Sodium Chloride 1,000 ml @ 200 mls/hr Q5H PRN IV 10/07/16 10:43 (NS 1000 ml Inj) 1,000 ml @ 0 mls/hr Q0M PRN IV 10/07/16 10:43 (Mannitol Inj) 12.5 gm UNSCH PRN IV 10/07/16 10:45 (Albumin 25% Inj) 25 gm UNSCH PRN IV 10/07/16 10:45 (NS Flush) 5 ml UNSCH PRN IV FLUSH 10/07/16 10:45 (Heparin Inj) UNSCH PRN .XX 10/07/16 10:45 (Gentamicin (Dialysis) Inj) 20 mg UNSCH PRN IV 10/07/16 10:45 (Zofran Inj) 4 mg UNSCH PRN IV 10/07/16 10:45 (Tylenol) 650 mg UNSCH PRN PO 10/07/16 10:45 (Benadryl) 25 mg UNSCH PRN PO 10/07/16 10:45 (Nitrostat Sl) 0.4 mg UNSCH PRN SL 10/07/16 10:45 (Catapres) 0.1 mg UNSCH PRN PO 10/07/16 10:45 (Epogen Inj) 4,000 units UNSCH PRN IV 10/07/16 10:45 (Gelfoam 12 Mm/7 Mm Top) 1 foam UNSCH PRN TOP 10/07/16 10:45 A/P Assessment and Plan 1. Encephalopathy: s/p fall w/ head trauma, noted to be lethargic per DIL. CT Head w/ no acute findings, images reviewed by me. Labs essentially at baseline. completely alert and oriented x 3. Will admit for Observation, monitor. H/o Crack/Marijuana, Drug screen Negative. 2. Hyponatremia: chronic Nephrology specialist following 3. Total Self Care Deficit: pt lives at home w/ in shack behind trailer of Son/DIL, DIL reports inability to care for pt, pt unable to care for self. Case Management consulted, recommendation for admission pending placement as unsafe discharge home at this time. 4. Bipolar Disorder: Stable. Resume home medications. 5. HTN: BP 140-160's, will monitor, resume home medications. 6. ESRD on HD: M/W/F. will have Hemodialysis tomorrow. 7. Tobacco Abuse: recommended to stop smoking. DVT Prophylaxis: SCD/Teds. Social work for d/c planning as needed. Discharge Planning okay from Nephrology specialist for discharge but not yet found placement. DCF involved. Ramon Ambriz MD Oct 07, 2016 14:15
[2016-10-07 20:09] VITALS: BP 174/74; PULSE 73; RESP 18; TEMP 98.8; O2SAT 98
[2016-10-07] MEDS: traZODone HCL 100 MG TAB PO SCH (20:29)
[2016-10-07] MEDS: ATORVASTATIN 20 MG TAB PO SCH (20:29)
[2016-10-08 04:22] VITALS: BP 162/68; PULSE 62; RESP 18; TEMP 97.8; O2SAT 97
[2016-10-08 08:53] VITALS: BP 147/67; PULSE 66; RESP 16; TEMP 98; O2SAT 97
[2016-10-08] MEDS: SODIUM CHLORIDE 0.9% FLUSH 10 ML FLUSH IV FLUSH SCH (09:00)
[2016-10-08] MEDS: BENZTROPINE MESYLATE 2 MG TAB PO SCH (09:47)
[2016-10-08] MEDS: CLOPIDOGREL 75 MG TAB PO SCH (09:47)
[2016-10-08] MEDS: ZIPRASIDONE HCL 80 MG CAP PO SCH (09:47)
[2016-10-08] MEDS: ESCITALOPRAM OXALATE 10 MG TAB PO SCH (09:47)
[2016-10-08] MEDS: GABAPENTIN 100 MG CAP PO SCH (09:47)
[2016-10-08] MEDS: CINACALCET HYDROCHLORIDE 30 MG TAB PO SCH (09:48)
[2016-10-08] MEDS: VITAMIN B CMPLX/VITC/FOLIC AC CAP PO SCH (09:48)
--- NOTE | 2016-10-08 10:15 | HHI.PR ---
Subjective Remarks This is a 51-year-old female with a PMH of Anxiety, Depression, Bipolar Disorder , COPD, Tobacco Abuse and ESRD on HD M/W/F who was brought to the ER by [facility] for increasing lethargy and possible placement. Per DIL, pt had fall yesterday w/ head trauma, reportedly lethargic since. DIL concerned as pt unable to care for self. Missed HD on the day of admission secondary to lethargy. Pt unable to provide much history. On arrival, BP 145/59, HR 84, O2 sat 95% on RA, Afebrile. CBC unremarkable. Creatinine 7.22, previously 5.18 on 09/15/16. Na 126. CT Head w/ no acute findings. CXR with minimal consolidative changes and pleural effusion on right. Per report, pt lives w/ in a shack behind Son/DIL's trailer w/ no bathroom facilities and is unable to care for herself. Discussed with nurse Miss Nguyen appreciated no new issues, as per Nephrology specialist Doctor Deepak will have Dialysis today and may be discharged after Dialysis but no safe discharge yet DCF involved no Nausea, vomit or diarrhea but loss of appetite evident. 10/08 Patient seen in her bedroom stable awaiting for placement, no Nausea, vomit or diarrhea, discussed with her Mr. Carlson to his phone number [phone] all questions answered also discussed with Charge Nurse at this time. Objective Vital Signs Date Time Temp Pulse Resp B/P Pulse Ox O2 Delivery O2 Flow Rate FiO2 10/08/16 08:53 98.0 66 16 147/67 97 10/08/16 04:22 97.8 62 18 162/68 97 10/07/16 20:09 98.8 73 18 174/74 98 10/07/16 11:28 97.8 67 16 155/69 82 Result Diagram: 10/06/16 0826 10/06/16 0820 Imaging Last Impressions Hip and Pelvis X-Ray 10/07/16 0000 Signed Impressions: Service Date/Time: Friday, October 07, 2016 02:11 - CONCLUSION: 1. No acute bony abnormality. Bilateral iliac stents. Armando Lynne MD Head CT 10/05/16 0000 Signed Impressions: Service Date/Time: Wednesday, October 05, 2016 16:55 - CONCLUSION: Negative for an acute process. Clinton Parmar MD FACR Chest X-Ray 10/05/16 0000 Signed Impressions: Service Date/Time: Wednesday, October 05, 2016 16:52 - CONCLUSION: Cardiomegaly with minimal consolidative changes and pleural effusion on the right. Clinton Parmar MD FACR Procedures No procedures performed. Other Results Laboratory Tests Test 10/06/16 10/06/16 10/06/16 06:40 08:20 08:26 Urine Color YELLOW Urine Turbidity CLEAR Urine pH 7.5 Urine Specific [place] 1.004 Urine Protein 300 mg/dL Urine Glucose (UA) TRACE mg/dL Urine Ketones NEG mg/dL Urine Occult Blood NEG Urine Nitrite NEG Urine Bilirubin NEG Urine Urobilinogen LESS THAN 2.0 MG/DL Urine Leukocyte Esterase NEG Urine RBC 1 /hpf Urine WBC 1 /hpf Urine Squamous Epithelial 1 /hpf Cells Urine Bacteria RARE /hpf Urine Mucus FEW /lpf Microscopic Urinalysis Comment CATH-CULTURE IND Urine Opiates Screen NEG Urine Barbiturates Screen NEG Urine Amphetamines Screen NEG Urine Benzodiazepines Screen NEG Urine Cocaine Screen NEG Urine Cannabinoids Screen NEG Sodium Level 126 MEQ/L Potassium Level 4.5 MEQ/L Chloride Level 88 MEQ/L Carbon Dioxide Level 26.4 MEQ/L Anion Gap 12 MEQ/L Blood Urea Nitrogen 41 MG/DL Creatinine 7.64 MG/DL Estimat Glomerular Filtration 6 ML/MIN Rate Random Glucose 86 MG/DL Calcium Level 9.3 MG/DL Total Bilirubin 0.7 MG/DL Aspartate Amino Transf 21 U/L (AST/SGOT) Alanine Aminotransferase 15 U/L (ALT/SGPT) Alkaline Phosphatase 121 U/L Total Protein 6.1 GM/DL Albumin 3.0 GM/DL White Blood Count 5.4 TH/MM3 Red Blood Count 3.54 MIL/MM3 Hemoglobin 10.6 GM/DL Hematocrit 31.3 % Mean Corpuscular Volume 88.4 FL Mean Corpuscular Hemoglobin 29.9 PG Mean Corpuscular Hemoglobin 33.8 % Concent Red Cell Distribution Width 20.5 % Platelet Count 135 TH/MM3 Mean Platelet Volume 8.6 FL Neutrophils (%) (Auto) 74.2 % Lymphocytes (%) (Auto) 14.8 % Monocytes (%) (Auto) 9.6 % Eosinophils (%) (Auto) 0.8 % Basophils (%) (Auto) 0.6 % Neutrophils # (Auto) 4.0 TH/MM3 Lymphocytes # (Auto) 0.8 TH/MM3 Monocytes # (Auto) 0.5 TH/MM3 Eosinophils # (Auto) 0.0 TH/MM3 Basophils # (Auto) 0.0 TH/MM3 CBC Comment DIFF FINAL Differential Comment Objective Remarks GENERAL: Obesity, alert and oriented x 3. HEENT: PERRLA, EOMI. No scleral icterus or conjunctival pallor. No lid lag or facial droop. CARDIOVASCULAR: Regular rate and rhythm. No obvious murmurs to auscultation. No chest tenderness to palpation. RESPIRATORY: No obvious rhonchi or wheezing. Clear to auscultation. Breath sounds equal bilaterally. GASTROINTESTINAL: Abdomen soft, non-tender, nondistended. BS normal. MUSCULOSKELETAL: Extremities without clubbing, cyanosis, or edema. No obvious deformities. NEUROLOGICAL: Alert and oriented no focal deficits. Medications and IVs Current Medications Medications (Trade) Dose Ordered Sig/Lora Route Start Time Stop Time Status Last Admin (NS Flush) 2 ml UNSCH PRN IV FLUSH 10/05/16 19:30 (NS Flush) 2 ml BID IV FLUSH 10/05/16 21:00 10/08/16 09:00 (Zofran Inj) 4 mg Q6H PRN IVP 10/05/16 19:30 (Dulcolax Supp) 10 mg DAILY PRN [place] 10/05/16 19:30 (Tylenol) 650 mg Q6H PRN PO 10/05/16 19:30 ([place] 5-325 Mg) 1 tab Q4H PRN PO 10/05/16 19:30 ([place] 10-325 Mg) 1 tab Q4H PRN PO 10/05/16 19:30 (Lipitor) 20 mg HS PO 10/05/16 21:00 10/07/16 20:29 (Nephrocaps) 1 cap DAILY PO 10/06/16 09:00 10/08/16 09:48 (Cogentin) 2 mg Q12HR PO 10/05/16 21:00 10/08/16 09:47 (Plavix) 75 mg DAILY PO 10/06/16 09:00 10/08/16 09:47 (Lexapro) 10 mg DAILY PO 10/06/16 09:00 10/08/16 09:47 (Neurontin) 200 mg BID PO 10/05/16 21:00 10/08/16 09:47 (Desyrel) 200 mg HS PO 10/05/16 21:00 10/07/16 20:29 (Geodon) 80 mg BIDPC PO 10/05/16 21:00 10/08/16 09:47 Cinacalcet 60 mg 60 mg DAILY PO 10/06/16 09:00 10/08/16 09:48 (NS 1000 ml Inj) 1,000 ml @ 0 mls/hr Q0M PRN IV 10/07/16 10:43 Heparin Sodium (Porcine) 8000 units 8,000 units UNSCH PRN IVF 10/07/16 10:45 Sodium Chloride 1,000 ml @ 200 mls/hr Q5H PRN IV 10/07/16 10:43 (NS 1000 ml Inj) 1,000 ml @ 0 mls/hr Q0M PRN IV 10/07/16 10:43 (Mannitol Inj) 12.5 gm UNSCH PRN IV 10/07/16 10:45 (Albumin 25% Inj) 25 gm UNSCH PRN IV 10/07/16 10:45 (NS Flush) 5 ml UNSCH PRN IV FLUSH 10/07/16 10:45 (Heparin Inj) UNSCH PRN .XX 10/07/16 10:45 (Gentamicin (Dialysis) Inj) 20 mg UNSCH PRN IV 10/07/16 10:45 (Zofran Inj) 4 mg UNSCH PRN IV 10/07/16 10:45 (Tylenol) 650 mg UNSCH PRN PO 10/07/16 10:45 (Benadryl) 25 mg UNSCH PRN PO 10/07/16 10:45 (Nitrostat Sl) 0.4 mg UNSCH PRN SL 10/07/16 10:45 (Catapres) 0.1 mg UNSCH PRN PO 10/07/16 10:45 (Epogen Inj) 4,000 units UNSCH PRN IV 10/07/16 10:45 (Gelfoam 12 Mm/7 Mm Top) 1 foam UNSCH PRN TOP 10/07/16 10:45 A/P Assessment and Plan 1. Encephalopathy: Improved, s/p fall w/ head trauma, noted to be lethargic per DIL. CT Head w/ no acute findings Labs essentially at baseline. completely alert and oriented x 3. Will admit for Observation, monitor. H/o Crack/Marijuana, Drug screen Negative. 2. Hyponatremia: chronic Nephrology specialist following 3. Total Self Care Deficit: pt lives at home w/ in shack behind trailer of Son/DIL, DIL reports inability to care for pt, pt unable to care for self. Case Management consulted, recommendation for admission pending placement as unsafe discharge home at this time. today discussed with [employer] Analyst ready for discharge signed [id number]. 4. Bipolar Disorder: Stable. Resume home medications. 5. HTN: BP 140-160's, will monitor, resume home medications. 6. ESRD on HD: M/W/F. will have Hemodialysis tomorrow. 7. Tobacco Abuse: recommended to stop smoking. DVT Prophylaxis: SCD/Teds. Social work for d/c planning as needed. Discharge Planning okay from Nephrology specialist for discharge but not yet found placement. will be discharged today to her Rehab facility. Ramon Ambriz MD Oct 08, 2016 10:14
[2016-10-08 11:59] VITALS: BP 150/67; PULSE 69; RESP 17; TEMP 98.1; O2SAT 94
--- NOTE | 2016-10-08 12:48 | HHI.DS ---
Discharge Summary Admission Date Oct 05, 2016 at 18:22 Discharge Date: Oct 08, 2016 Admitting Diagnosis hyponatremia, altered mental status, dependent edema, ESRD on HD (1) Encephalopathy ICD Code: G93.40 (2) Hyponatremia ICD Code: E87.1 Diagnosis: Principal (3) Total self-care deficit ICD Code: R41.89 Diagnosis: Principal (4) Bipolar disorder ICD Code: F31.9 Diagnosis: Secondary (5) HTN (hypertension) ICD Code: I10 Diagnosis: Secondary (6) COPD (chronic obstructive pulmonary disease) ICD Code: J44.9 Diagnosis: Secondary (7) Tobacco abuse ICD Code: Z72.0 Diagnosis: Principal Procedures Hemodialysis Brief History - From Admission This is a 51-year-old female with a PMH of Anxiety, Depression, Bipolar Disorder , COPD, Tobacco Abuse and ESRD on HD M/W/F who was brought to the ER by Daughter -in-Law for increasing lethargy and possible placement. Per DIL, pt had fall earlier today w/ head trauma, reportedly lethargic since. DIL concerned as pt unable to care for self. Missed HD today secondary to lethargy. Pt unable to provide much history. On arrival, BP 145/59, HR 84, O2 sat 95% on RA, Afebrile. CBC unremarkable. Creatinine 7.22, previously 5.18 on 09/15/16. Na 126. CT Head w/ no acute findings. CXR with minimal consolidative changes and pleural effusion on right. Per report, pt lives w/ in a shack behind Son/DIL's trailer w/ no bathroom facilities and is unable to care for herself. Case Management consulted, attempting to find placement. Recommendation for admission as unsafe discharge at this time. CBC/BMP: 10/06/16 0826 10/06/16 0820 Significant Findings Laboratory Tests Test 10/05/16 10/05/16 10/06/16 10/06/16 15:25 17:35 06:40 08:20 Sodium Level 126 MEQ/L 126 MEQ/L (136-145) (136-145) Chloride Level 89 MEQ/L 88 MEQ/L (98-107) (98-107) Blood Urea Nitrogen 35 MG/DL (7-18) 41 MG/DL (7-18) Creatinine 7.22 MG/DL 7.64 MG/DL (0.50-1.00) (0.50-1.00) Estimat Glomerular Filtration 6 ML/MIN (>89) 6 ML/MIN (>89) Rate Random Glucose 116 MG/DL (74-106) Total Protein 6.1 GM/DL 6.1 GM/DL (6.4-8.2) (6.4-8.2) Albumin 3.0 GM/DL 3.0 GM/DL (3.4-5.0) (3.4-5.0) Red Blood Count 3.53 MIL/MM3 (4.00-5.30) Hemoglobin 10.5 GM/DL (11.6-15.3) Hematocrit 31.7 % (35.0-46.0) Red Cell Distribution Width 21.0 % (11.6-17.2) Monocytes (%) (Auto) 10.5 % (0.0-8.0) Urine Protein 300 mg/dL (NEG-TRACE) Urine Bacteria RARE /hpf (NONE) Urine Mucus FEW /lpf (OCC) Alkaline Phosphatase 121 U/L (45-117) Test 10/06/16 08:26 Red Blood Count 3.54 MIL/MM3 (4.00-5.30) Hemoglobin 10.6 GM/DL (11.6-15.3) Hematocrit 31.3 % (35.0-46.0) Red Cell Distribution Width 20.5 % (11.6-17.2) Platelet Count 135 TH/MM3 (150-450) Neutrophils (%) (Auto) 74.2 % (16.0-70.0) Monocytes (%) (Auto) 9.6 % (0.0-8.0) Lymphocytes # (Auto) 0.8 TH/MM3 (1.0-4.8) Imaging Last Impressions Hip and Pelvis X-Ray 10/07/16 Signed Impressions: Service Date/Time: Friday, October 07, 2016 02:11 - CONCLUSION: 1. No acute bony abnormality. Bilateral iliac stents. Armando Lynne MD Head CT 10/05/16 Signed Impressions: Service Date/Time: Wednesday, October 05, 2016 16:55 - CONCLUSION: Negative for an acute process. Clinton Parmar MD FACR Chest X-Ray 10/05/16 0000 Signed Impressions: Service Date/Time: Wednesday, October 05, 2016 16:52 - CONCLUSION: Cardiomegaly with minimal consolidative changes and pleural effusion on the right. Clinton Parmar MD FACR PE at Discharge GENERAL: Obesity, alert and oriented x 3. HEENT: PERRLA, EOMI. No scleral icterus or conjunctival pallor. No lid lag or facial droop. CARDIOVASCULAR: Regular rate and rhythm. No obvious murmurs to auscultation. No chest tenderness to palpation. RESPIRATORY: No obvious rhonchi or wheezing. Clear to auscultation. Breath sounds equal bilaterally. GASTROINTESTINAL: Abdomen soft, non-tender, nondistended. BS normal. MUSCULOSKELETAL: Extremities without clubbing, cyanosis, or edema. No obvious deformities. NEUROLOGICAL: Alert and oriented no focal deficits. Hospital Course This is a 51-year-old female with a PMH of Anxiety, Depression, Bipolar Disorder , COPD, Tobacco Abuse and ESRD on HD M/W/F who was brought to the ER by [id number] for increasing lethargy and possible placement. Per HENRIQUE, pt had fall yesterday w/ head trauma, reportedly lethargic since. HENRIQUE concerned as pt unable to care for self. Missed HD on the day of admission secondary to lethargy. Pt unable to provide much history. On arrival, BP 145/59, HR 84, O2 sat 95% on RA, Afebrile. CBC unremarkable. Creatinine 7.22, previously 5.18 on 09/15/16. Na 126. CT Head w/ no acute findings. CXR with minimal consolidative changes and pleural effusion on right. Per report, pt lives w/ in a shack behind Son/DIL's trailer w/ no bathroom facilities and is unable to care for herself. Discussed with nurse Miss Nguyen appreciated no new issues, as per Nephrology specialist Doctor Latiff will have Dialysis today and may be discharged after Dialysis but no safe discharge yet DCF involved no Nausea, vomit or diarrhea but loss of appetite evident. 10/08 Patient seen in her bedroom stable awaiting for placement, no Nausea, vomit or diarrhea, discussed with her Mr. Carlson to his phone number [phone] all questions answered also discussed with Charge Nurse at this time. Assessment and Plan 1. Encephalopathy: Improved, s/p fall w/ head trauma, noted to be lethargic per DIL. CT Head w/ no acute findings Labs essentially at baseline. completely alert and oriented x 3. Will admit for Observation, monitor. H/o Crack/Marijuana, Drug screen Negative. 2. Hyponatremia: chronic Nephrology specialist following 3. Total Self Care Deficit: pt lives at home w/ in shack behind trailer of Son/DIL, DIL reports inability to care for pt, pt unable to care for self. Case Management consulted, recommendation for admission pending placement as unsafe discharge home at this time. today discussed with Venue Manager ready for discharge signed [id number]. 4. Bipolar Disorder: Stable. Resume home medications. 5. HTN: BP 140-160's, will monitor, resume home medications. 6. ESRD on HD: M/W/F. will have Hemodialysis tomorrow. 7. Tobacco Abuse: recommended to stop smoking. DVT Prophylaxis: SCD/Teds. Social work for d/c planning as needed. Discharge Planning okay from Nephrology specialist for discharge but not yet found placement. will be discharged today to her Rehab facility. Pt Condition on Discharge: Good Discharge Disposition: Rehab Inpatient Discharge Time: > 30 minutes Discharge Instructions DIET: Follow Instructions for: Renal Failure Diet Activities you can perform: Regular-No Restrictions Other Activity Instructions: Follow Physical Therapy recommendations in Rehab Ramon Ambriz MD Oct 08, 2016 12:48
[2016-10-08 16:13] VITALS: BP 167/74; PULSE 73; RESP 16; TEMP 98.9; O2SAT 93
[2016-10-08 16:32] VITALS: O2SAT 97
[2016-11-10] MEDS ORDERED: LOSA50TA PO (15:49)
[2016-11-10] MEDS ORDERED: PLAV75TA29 PO (15:49)
[2016-11-10] MEDS ORDERED: SENS60TA PO (15:50)
== END 2016-10-08 21:06 ==
LOC: NEPE 13:34 → NEDA 18:22 → NEPGCP 21:12
PROVIDERS: ADMIT Internal Medicine; ATTEND Internal Medicine
DX: G93.40 Encephalopathy, unspecified (principal); E87.1 Hypo-osmolality and hyponatremia; F31.9 Bipolar disorder, unspecified; I13.11 Hypertensive heart and chronic kidney disease without heart failure, with stage 5 chronic kidney disease, or end stage renal disease; J44.9 Chronic obstructive pulmonary disease, unspecified; F17.210 Nicotine dependence, cigarettes, uncomplicated; R41.82 Altered mental status, unspecified; N18.6 End stage renal disease; Z99.2 Dependence on renal dialysis; R60.0 Localized edema; W01.10XA Fall on same level from slipping, tripping and stumbling with subsequent striking against unspecified object, initial encounter; Z79.01 Long term (current) use of anticoagulants; Z79.899 Other long term (current) drug therapy; S09.90XA Unspecified injury of head, initial encounter; R41.89 Other symptoms and signs involving cognitive functions and awareness
CPT/HCPCS: 70450; 71010; 73501; 76937; 80053; 80307; 81001; 85025; 87086; 93005; 94664; 97163; 99285; G0257; G0378; G8987; G8988; 90935

== ENCOUNTER 2016-10-31 09:59 | Observation (INO) | payer MEDICARE, OTHER ==
[2016-10-31] VITALS (9 sets, daily range): BP systolic 151–183; BP diastolic 69–81; PULSE 70–79; RESP 16–18; TEMP 96.7–98; O2SAT 92–100
[~2016-10-31] VITALS: Ht 154.9 cm; Wt 62.1 kg
[~2016-10-31 09:59] MED LIST changes: -ALBU.5I NEB; +ATOR20TA15 PO; -CEFT500T3 PO; +FERR1TAB16 PO; -GABA100C4 PO; +GEOD80CA PO; -LORA-474 PO; +NEUR100C PO; +PLAV75TA29 PO; -PRIL20CA9 PO; -SEVEL800 PO; -SYMB160A INH; +TRAZ100T4 PO; -ZITH250T PO
[2016-10-31] MEDS ORDERED: FERR1TAB16 PO (10:24)
[2016-10-31] MEDS ORDERED: SODIUM CHLORIDE 0.9% FLUSH 10 ML FLUSH IVF PRN (10:30)
[2016-10-31 11:04] LABS: AUTOMATED NEUTROPHIL # 2.6 TH/MM3 (1.8-7.7); BASOPHIL % 0.9 % (0.0-2.0); EOSINOPHIL % 0.3 % (0.0-4.0); HEMATOCRIT 28.8 % (35.0-46.0); HEMO FLAGS DIFF FINAL; LYMPH % 16.9 % (9.0-44.0); LYMPHOCYTE # 0.6 TH/MM3 (1.0-4.8); MEAN CORPUSCULAR HEMOGLOBIN 29.2 PG (27.0-34.0); MEAN CORPUSCULAR HGB CONC 32.1 % (32.0-36.0); MONO % 11.7 % (0.0-8.0); NEUT % 70.2 % (16.0-70.0); PLATELET COUNT 127 TH/MM3 (150-450); RED BLOOD COUNT 3.17 MIL/MM3 (4.00-5.30); RED CELL DISTRIBUTION WIDTH 19.8 % (11.6-17.2); WHITE BLOOD COUNT 3.7 TH/MM3 (4.0-11.0)
[2016-10-31 11:11] LABS: APTT (PATIENT) 28.3 SEC (24.3-30.1); INTERNATIONAL NORMALIZED RATIO 1.1 RATIO; PROTHROMBIN TIME - PATIENT 12.6 SEC (9.8-11.6)
[2016-10-31 11:17] LABS: BICARBONATE 31.2 MEQ/L (21.0-32.0); POTASSIUM 4.1 MEQ/L (3.5-5.1)
--- NOTE | 2016-10-31 11:40 | PD ---
HPI Chief Complaint: General Weakness Time Seen by Provider: 10:19 Travel History International Travel<30 days: No Contact w/Intl Traveler<30days: No Traveled to known affect area: No History of Present Illness HPI Patient is a 51 year old female who comes in due to AMS. Per EMS, patient was discharged from a nursing facility yesterday. When the home health nurse came today, she found her to be very lethargic and recommended she come to the hospital. She has history of ESRD and was dialyzed yesterday. Per , he received no instructions from the nursing facility. He does say he gave her two Trazodone last night to sleep, but he thinks he dose was decreased to 1 recently. He reports she is very weak and is unable to stand. She awakens when spoken to, but does not provide any history. PFSH Past Medical History Hx Anticoagulant Therapy: Yes (PLAVIX) Bipolar Disorder: Yes (A/V HALLUCINATION) Anxiety: Yes Depression: Yes Cancer: No Cardiovascular Problems: Yes COPD: Yes Dialysis: Yes (WEDNESDAYS AND FRIDAYS) Diminished Hearing: No Endocrine: No Immune Disorder: No Implanted Vascular Access Dvce: Yes Kidney Stones: No Musculoskeletal: No Neurologic: No Psychiatric: Yes Reproductive: No Respiratory: Yes (emphysema) Renal Failure: Yes (IS ON DIALYSIS) Tetanus Vaccination: > 5 Years Influenza Vaccination: Yes ?: Not Menopausal: Yes : 4 Para: 3 : 1 Past Surgical History Body Medical Devices: A/V SHUNT- LEFT CHEST Section: Yes Gynecologic Surgery: Yes ( X 3 ) Other Surgery: Yes (cyst ovary drained/ AV- SHUNT- LEFT CHEST-) Social History Alcohol Use: No Tobacco Use: Yes (1/2ppd) Substance Use: Yes (Past hx of crack and marijuana abuse) Allergies-Medications (Allergen,Severity, Reaction): Coded Allergies: No Known Allergies (Unverified , 10/31/16) Reported Meds & Prescriptions Reported Meds & Active Scripts Active Cozaar (Losartan Potassium) 25 Mg Tab 25 Mg PO Q12HR Hydrocodone-Acetaminophen 7.5-325 mg Tab 1 Tab PO Q4H PRN Benztropine (Benztropine Mesylate) 2 Mg Tab 2 Mg PO Q12HR 10 Days Reported Auryxia (Ferric Citrate) 210 Mg Tab Tab PO TID Auryxia (Ferric Citrate) 210 Mg Tab 210 Mg PO 2-3 TIMES A DAY Take with meals 2-3 times a day Trazodone (Trazodone HCl) 100 Mg Tab 200 Mg PO HS Atorvastatin (Atorvastatin Calcium) 20 Mg Tab 20 Mg PO HS Neurontin (Gabapentin) 100 Mg Cap 200 Mg PO BID Geodon (Ziprasidone) 80 Mg Cap 80 Mg PO BID Plavix (Clopidogrel Bisulfate) 75 Mg Tab 75 Mg PO DAILY Sensipar (Cinacalcet) 60 Mg Tab 60 Mg PO DAILY With Dinner Reglan (Metoclopramide HCl) 5 Mg Tab 5 Mg PO TIDAC Nephrocaps (B-Complex W/ C & Folic Acid) 1 Cap 1 Cap PO DAILY If on dialysis, take after treatment. Lexapro (Escitalopram Oxalate) 10 Mg Tab 10 Mg PO DAILY Review of Systems ROS Limitations: Clinical Condition, Altered Mental Status Physical Exam Narrative GENERAL: Lethargic, awakens easily, in no acute distress. SKIN: Focused skin assessment warm/dry. HEAD: Atraumatic. Normocephalic. EYES: Pupils equal and round. No scleral icterus. No injection or drainage. ENT: No nasal bleeding or discharge. Mucous membranes pink and moist. NECK: Trachea midline. No JVD. CARDIOVASCULAR: Regular rate and rhythm. No murmur appreciated. RESPIRATORY: No accessory muscle use. Clear to auscultation. Breath sounds equal bilaterally. GASTROINTESTINAL: Abdomen soft, non-tender, nondistended. Hepatic and splenic margins not palpable. MUSCULOSKELETAL: No obvious deformities. No clubbing. No cyanosis. No edema. NEUROLOGICAL: Awake and alert. No obvious cranial nerve deficits. Motor grossly within normal limits. Normal speech. PSYCHIATRIC: Appropriate mood and affect; insight and judgment normal. Data Data Last Documented VS Vital Signs Date Time Temp Pulse Resp B/P Pulse Ox O2 Delivery O2 Flow Rate FiO2 10/31/16 14:00 98.0 72 18 171/73 99 Nasal Cannula 3 Orders Electrocardiogram (10/31/16 10:19) Ammonia (10/31/16 10:19) Basic Metabolic Panel (Bmp) (10/31/16 10:19) Complete Blood Count With Diff (10/31/16 10:19) Creatine Kinase (Cpk) (10/31/16 10:19) Prothrombin Time / Inr (Pt) (10/31/16 10:19) Act Partial Throm Time (Ptt) (10/31/16 10:19) Troponin I (10/31/16 10:19) Urinalysis - C+S If Indicated (10/31/16 10:19) Ua Includes Microscopic (10/31/16 10:19) Chest, Single Ap (10/31/16 10:19) Blood Glucose (10/31/16 10:19) Ecg Monitoring (10/31/16 10:19) Iv Access Insert/Monitor (10/31/16 10:19) Oximetry (10/31/16 10:19) Sodium Chloride 0.9% Flush (Ns Flush) (10/31/16 10:30) Ct Abd/Pel W/O Iv Contrast (10/31/16 ) Ct Brain W/O Iv Contrast(Rout) (10/31/16 ) Cath For Specimen (10/31/16 10:52) Hepatic Functional Panel (10/31/16 11:40) Admit Order (Ed Use Only) (10/31/16 ) Labs Laboratory Tests Test 10/31/16 10/31/16 10:30 11:35 White Blood Count 3.7 TH/MM3 Red Blood Count 3.17 MIL/MM3 Hemoglobin 9.3 GM/DL Hematocrit 28.8 % Mean Corpuscular Volume 91.0 FL Mean Corpuscular Hemoglobin 29.2 PG Mean Corpuscular Hemoglobin 32.1 % Concent Red Cell Distribution Width 19.8 % Platelet Count 127 TH/MM3 Mean Platelet Volume 7.9 FL Neutrophils (%) (Auto) 70.2 % Lymphocytes (%) (Auto) 16.9 % Monocytes (%) (Auto) 11.7 % Eosinophils (%) (Auto) 0.3 % Basophils (%) (Auto) 0.9 % Neutrophils # (Auto) 2.6 TH/MM3 Lymphocytes # (Auto) 0.6 TH/MM3 Monocytes # (Auto) 0.4 TH/MM3 Eosinophils # (Auto) 0.0 TH/MM3 Basophils # (Auto) 0.0 TH/MM3 CBC Comment DIFF FINAL Differential Comment Prothrombin Time 12.6 SEC Prothromb Time International 1.1 RATIO Ratio Activated Partial 28.3 SEC Thromboplast Time Sodium Level 133 MEQ/L Potassium Level 4.1 MEQ/L Chloride Level 95 MEQ/L Carbon Dioxide Level 31.2 MEQ/L Anion Gap 7 MEQ/L Blood Urea Nitrogen 12 MG/DL Creatinine 3.88 MG/DL Estimat Glomerular Filtration 12 ML/MIN Rate Random Glucose 82 MG/DL Calcium Level 9.3 MG/DL Total Bilirubin 0.8 MG/DL Direct Bilirubin 0.3 MG/DL Indirect Bilirubin 0.5 MG/DL Aspartate Amino Transf 23 U/L (AST/SGOT) Alanine Aminotransferase 19 U/L (ALT/SGPT) Alkaline Phosphatase 145 U/L Ammonia 15 MCMOL/L Total Creatine Kinase 26 U/L Troponin I 0.02 NG/ML B-Type Natriuretic Peptide 1105 PG/ML Total Protein 6.3 GM/DL Albumin 2.8 GM/DL Urine Color LIGHT-YELLOW Urine Turbidity CLEAR Urine pH 8.0 Urine Specific [place] 1.004 Urine Protein 300 mg/dL Urine Glucose (UA) TRACE mg/dL Urine Ketones NEG mg/dL Urine Occult Blood TRACE Urine Nitrite NEG Urine Bilirubin NEG Urine Urobilinogen LESS THAN 2.0 MG/DL Urine Leukocyte Esterase NEG Urine RBC LESS THAN 1 /hpf Urine WBC LESS THAN 1 /hpf Urine Squamous Epithelial 1 /hpf Cells Microscopic Urinalysis Comment CULT NOT INDICATED Urine Opiates Screen NEG Urine Barbiturates Screen NEG Urine Amphetamines Screen NEG Urine Benzodiazepines Screen NEG Urine Cocaine Screen NEG Urine Cannabinoids Screen NEG MDM Medical Decision Making Medical Screen Exam Complete: Yes Emergency Medical Condition: Yes Medical Record Reviewed: Yes Interpretation(s) ECG shows prolonged QT Differential Diagnosis Infection vs electrolyte abnormalities vs drug overdose Narrative Course Patient is a 51 year old female brought in because of AMS at home. Per he believes he may have given her too much Trazadone. Patient was very lethargic and altered on arrival, but gradually became more responsive. IV established, labs sent. Labs show no acute abnormalities. CT head performed, shows no acute abnormalities. Patient placed in observation to make sure she continues to improve and observe for causes of AMS. Diagnosis Primary Impression: Altered mental status Qualified Code: R41.0 - Disorientation Admitting Information Admitting Physician Requests: Observation Condition: Stable Kaleigh David MD Oct 31, 2016 11:40
[2016-10-31 12:07] LABS: BLOOD, URINE TRACE (NEG); COMMENT (UR) CULT NOT INDICATED; CULTURE IF INDICATED CULT NOT INDICATED; GLUCOSE,URINE TRACE mg/dL (NEG); KETONE, URINE NEG (NEG); NITRITE,URINE NEG (NEG); SQUAMOUS EPITHELIAL CELL URINE 1 /hpf (0-5); URINE COLOR LIGHT-YELLOW (YELLW/STRAW)
--- NOTE | 2016-10-31 12:21 | RADRPT ---
EXAM DATE/TIME: 10/31/2016 10:58 [facility] COMPARISON: CHEST SINGLE AP, October 05, 2016, 16:52. INDICATIONS : Weakness and shortness of breath. MEDICAL HISTORY : Renal disease, end stage. Cardiovascular disease. SURGICAL HISTORY : AV shunt ENCOUNTER: Initial ACUITY: 1 day PAIN SCORE: Non-responsive. LOCATION: Bilateral upper chest FINDINGS: The heart size is borderline enlarged. There is a mild to moderate right pleural effusion. There is prominence of the interstitial markings throughout. There does appear to be a shunt projecting over the left chest. CONCLUSION: 1. Diffuse increased interstitial markings with borderline cardiomegaly likely representing edema an d possible CHF. 2. Mild to moderate right pleural effusion. Augustin Atkinson MD on October 31, 2016 at 12:12 Board Certified Radiologist. This report was verified electronically.
[2016-10-31 12:31] LABS: INDIRECT BILIRUBIN 0.5 MG/DL (0.0-0.8); TOTAL BILIRUBIN ADULT 0.8 MG/DL (0.2-1.0)
--- NOTE | 2016-10-31 13:32 | RADRPT ---
EXAM DATE/TIME: 10/31/2016 12:02 [facility] COMPARISON: CT BRAIN W/O CONTRAST, September 08, 2016, 12:23. CT BRAIN W/O CONTRAST, October 05, 2016, 16:55. INDICATIONS : Altered mental status. RADIATION DOSE: 46.17 CTDIvol (mGy) MEDICAL HISTORY : None SURGICAL HISTORY : None. ENCOUNTER: Initial ACUITY: 1 day PAIN SCALE: 0/10 LOCATION: cranial TECHNIQUE: Multiple contiguous axial images were obtained of the head. Using automated exposure control and adj ustment of the mA and/or kV according to patient size, radiation dose was kept as low as reasonably a chievable to obtain optimal diagnostic quality images. FINDINGS: CEREBRUM: The ventricles are normal for age. A there is a stable 4 mm focal increased density at the anterior third ventricle likely related to a colloid cyst. No evidence of midline shift, mass lesion, hemorrha ge or acute infarction. No extra-axial fluid collections are seen. POSTERIOR FOSSA: The cerebellum and brainstem are intact. The 4th ventricle is midline. The cerebellopontine angle i s unremarkable. EXTRACRANIAL: The visualized portion of the orbits is intact. SKULL: The calvaria is intact. No evidence of skull fracture. CONCLUSION: 1. No acute abnormality seen. 2. 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 Augustin Atkinson MD on October 31, 2016 at 13:29 Board Certified Radiologist. This report was verified electronically.
--- NOTE | 2016-10-31 13:37 | EKG ---
Date Performed: 10/31/2016 Time Performed: 10:55:15 PTAGE: 51 years EKG: Sinus rhythm PROLONGED QT INTERVAL ABNORMAL ECG Compared to prior tracing no significant change PREVIOUS TRACING : 10/05/2016 17.47 DOCTOR: Gregor Martell Interpretating Date/Time 10/31/2016 13:34:36
--- NOTE | 2016-10-31 13:47 | RADRPT ---
EXAM DATE/TIME: 10/31/2016 12:06 [facility] COMPARISON: No previous studies available for comparison. INDICATIONS : Diffuse abdominal pain with bruising. ORAL CONTRAST: No oral contrast ingested. RADIATION DOSE: 11.53 CTDIvol (mGy) MEDICAL HISTORY : Chronic obstructive pulmonary disease. End stage renal disease. SURGICAL HISTORY : section. Aortic surgery ENCOUNTER: Initial ACUITY: 1 day PAIN SCALE: 4/10 LOCATION: Diffuse abdomen/pelvis TECHNIQUE: Volumetric scanning of the abdomen and pelvis was performed. Using automated exposure control and ad justment of the mA and/or kV according to patient size, radiation dose was kept as low as reasonably achievable to obtain optimal diagnostic quality images. FINDINGS: There is a moderate right pleural effusion. There is accompanying atelectasis or consolidation at th e right lower lobe. There is some minimal suspected atelectasis at the left lower lung. There is as cites seen around the liver and to a lesser degree spleen. The liver, spleen, pancreas and adrenal g lands are normal for a noncontrast CT examination. There is atrophy of both kidneys. There is calci fication seen at both kidneys. Scattered calcifications are seen in the arterial system. There are venous stents seen in the common and external iliac veins bilaterally. The bowel is unremarkable. T here is ascites in the pelvis. The pelvic structures appear grossly otherwise intact. There is edema seen throughout the subcutaneous tissues consistent with anasarca. The patient has a focal hematoma seen in the superomedial left upper gluteal region measuring approximately 8.0 x 4.5 x 5.4 cm. CONCLUSION: 1. 8 cm hematoma in the subcutaneous tissues at the superomedial left gluteal region. 2. Suspected anasarca with edema seen throughout the subcutaneous tissues. 3. Moderate right pleural effusion with accompanying atelectasis or consolidation at the right lower lobe. 4. Ascites seen around the liver, spleen and pelvis. The amount of ascites is mild to moderate. It appears too small to drain. 5. Venous stents in place in the pelvis. 6. Chronic atrophy of the kidneys bilaterally. Augustin Atkinson MD on October 31, 2016 at 13:30 Board Certified Radiologist. This report was verified electronically.
--- NOTE | 2016-10-31 15:10 | HHI.HP ---
[facility] Service Family Medicine Primary Care Physician Ashley Wilhelm MD Admission Diagnosis AMS Diagnoses: International Travel<30 Days: No Contact w/Intl Traveler<30days: No Known Affected Area: No History of Present Illness HISTORY OBTAINED FROM SECONDARY SOURCES, PATIENT DOES NOT PROVIDE MUCH HISTORY 51 year old female presents with history of anxiety, bipolar disorder, COPD, tobacco abuse, and ESRD on hemodialysis presented with altered mental status, weakness, and lethargy. She has been feeling sleepy and out of it. She was discharged from [facility] yesterday. Home health nurse found her to be lethargic and out of it and recommended she be evaluated in the hospital. gave her two trazodone overnight and is uncertain if he was only supposed to give her one. She also has generalized weakness. Per , at her baseline she sometimes requires a walker, does have auditory hallucinations at baseline from bipolar disorder. Per history from the , she was "unresponsive" when he tried to get her out of bed this morning. 911 was called. She fell on her buttocks while they were getting her into the ambulance. She did not hit her head. (Bola Porter MD R2) Review of Systems ROS Limitations: Altered Mental Status (Bola Porter MD R2) Past Family Social History Past Medical History ESRD, dialysis MWF Anxiety Bipolar disorder HTN HLD COPD Tobacco abuse Hx of cocaine/THC use Tremors Auditory hallucinations Past Surgical History A/V SHUNT- LEFT CHEST X3 Ovarian cyst drainage Reported Medications Reported Meds & Active Scripts Active Cozaar (Losartan Potassium) 25 Mg Tab 25 Mg PO Q12HR Hydrocodone-Acetaminophen 7.5-325 mg Tab 1 Tab PO Q4H PRN Benztropine (Benztropine Mesylate) 2 Mg Tab 2 Mg PO Q12HR 10 Days Reported Auryxia (Ferric Citrate) 210 Mg Tab Tab PO TID Auryxia (Ferric Citrate) 210 Mg Tab 210 Mg PO 2-3 TIMES A DAY Take with meals 2-3 times a day Trazodone (Trazodone HCl) 100 Mg Tab 200 Mg PO HS Atorvastatin (Atorvastatin Calcium) 20 Mg Tab 20 Mg PO HS Neurontin (Gabapentin) 100 Mg Cap 200 Mg PO BID Geodon (Ziprasidone) 80 Mg Cap 80 Mg PO BID Plavix (Clopidogrel Bisulfate) 75 Mg Tab 75 Mg PO DAILY Sensipar (Cinacalcet) 60 Mg Tab 60 Mg PO DAILY With Dinner Reglan (Metoclopramide HCl) 5 Mg Tab 5 Mg PO TIDAC Nephrocaps (B-Complex W/ C & Folic Acid) 1 Cap 1 Cap PO DAILY If on dialysis, take after treatment. Lexapro (Escitalopram Oxalate) 10 Mg Tab 10 Mg PO DAILY (Bola Porter MD R2) Allergies: Coded Allergies: No Known Allergies (Unverified , 10/31/16) Family History Mom: , old age Father: unknown Social History No alcohol use Smokes 1/2 PPD, quit during [facility] History of cocaine and marijuana use in the past Lives with , niece, nice's boyfriend Lives in [place] in back of house, has power, air conditioning, but requires use of front house for bathroom/kitchen (Bola Porter MD R2) Physical Exam Vital Signs Vital Signs Date Time Temp Pulse Resp B/P Pulse Ox O2 Delivery O2 Flow Rate FiO2 10/31/16 14:00 98.0 72 18 171/73 99 Nasal Cannula 3 10/31/16 12:27 98.0 74 18 158/70 100 Nasal Cannula 3 10/31/16 10:27 69 18 99 Nasal Cannula 3 10/31/16 10:25 18 99 Nasal Cannula 3 10/31/16 10:10 97.8 70 18 183/81 98 Physical Exam GENERAL: Lying in bed, no distress, confused. Not lethargic currently, she is awake and alert. Answers questions, oriented to person but not time or place. SKIN: Mild abrasion on abdomen, no scalp abrasions, tanned skin. Hematoma over the left buttocks. HEENT: Normocephalic, no nasal discharge, normal pharynx, no conjunctivitis, no scleral icterus NECK: Trachea midline. No JVD or lymphadenopathy. Supple, nontender, no meningeal signs. CARDIOVASCULAR: Regular rate and rhythm without murmurs, gallops, or rubs. Normal pulses. RESPIRATORY: Clear to auscultation. Breath sounds equal bilaterally. No wheezes , rales, or rhonchi. GASTROINTESTINAL: Abdomen soft, non-tender, nondistended. Ascites present. Soft palpable mass felt in abdomen. MUSCULOSKELETAL: Extremities without clubbing, cyanosis, or edema. No joint tenderness, effusion, or edema noted. No calf tenderness. Negative Homans sign bilaterally. NEUROLOGICAL: Awake and alert. Oriented to person but not time or place. Cranial nerves II through XII intact. Motor and sensory grossly within normal limits. PSYCH: Not responding to internal stimuli, not agitated, slow to respond to questions but will answer, does not know the answer to anything besides simple questions. Laboratory Laboratory Tests Test 10/31/16 10/31/16 10:30 11:35 White Blood Count 3.7 Red Blood Count 3.17 Hemoglobin 9.3 Hematocrit 28.8 Mean Corpuscular Volume 91.0 Mean Corpuscular Hemoglobin 29.2 Mean Corpuscular Hemoglobin 32.1 Concent Red Cell Distribution Width 19.8 Platelet Count 127 Mean Platelet Volume 7.9 Neutrophils (%) (Auto) 70.2 Lymphocytes (%) (Auto) 16.9 Monocytes (%) (Auto) 11.7 Eosinophils (%) (Auto) 0.3 Basophils (%) (Auto) 0.9 Neutrophils # (Auto) 2.6 Lymphocytes # (Auto) 0.6 Monocytes # (Auto) 0.4 Eosinophils # (Auto) 0.0 Basophils # (Auto) 0.0 CBC Comment DIFF FINAL Differential Comment Prothrombin Time 12.6 Prothromb Time International 1.1 Ratio Activated Partial 28.3 Thromboplast Time Sodium Level 133 Potassium Level 4.1 Chloride Level 95 Carbon Dioxide Level 31.2 Anion Gap 7 Blood Urea Nitrogen 12 Creatinine 3.88 Estimat Glomerular Filtration 12 Rate Random Glucose 82 Calcium Level 9.3 Total Bilirubin 0.8 Direct Bilirubin 0.3 Indirect Bilirubin 0.5 Aspartate Amino Transf 23 (AST/SGOT) Alanine Aminotransferase 19 (ALT/SGPT) Alkaline Phosphatase 145 Ammonia 15 Total Creatine Kinase 26 Troponin I 0.02 Total Protein 6.3 Albumin 2.8 Urine Color LIGHT-YELLOW Urine Turbidity CLEAR Urine pH 8.0 Urine Specific [place] 1.004 Urine Protein 300 Urine Glucose (UA) TRACE Urine Ketones NEG Urine Occult Blood TRACE Urine Nitrite NEG Urine Bilirubin NEG Urine Urobilinogen LESS THAN 2.0 Urine Leukocyte Esterase NEG Urine RBC LESS THAN 1 Urine WBC LESS THAN 1 Urine Squamous Epithelial 1 Cells Microscopic Urinalysis Comment CULT NOT INDICATED (Bola Porter MD R2) Result Diagram: 10/31/16 1030 10/31/16 1030 Imaging Last 72 hours Impressions Chest X-Ray 10/31/16 1019 Signed Impressions: Service Date/Time: Monday, October 31, 2016 10:58 - CONCLUSION: 1. Diffuse increased interstitial markings with borderline cardiomegaly likely representing edema and possible CHF. 2. Mild to moderate right pleural effusion. Augustin Atkinson MD Head CT 10/31/16 0000 Signed Impressions: Service Date/Time: Monday, October 31, 2016 12:02 - CONCLUSION: 1. No acute abnormality seen. 2. 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 Augustin Atkinson MD Abdomen/Pelvis CT 10/31/16 0000 Signed Impressions: Service Date/Time: Monday, October 31, 2016 12:06 - CONCLUSION: 1. 8 cm hematoma in the subcutaneous tissues at the superomedial left gluteal region. 2. Suspected anasarca with edema seen throughout the subcutaneous tissues. 3. Moderate right pleural effusion with accompanying atelectasis or consolidation at the right lower lobe. 4. Ascites seen around the liver, spleen and pelvis. The amount of ascites is mild to moderate. It appears too small to drain. 5. Venous stents in place in the pelvis. 6. Chronic atrophy of the kidneys bilaterally. Augustin Atkinson MD (Bola Porter MD R2) Septic Shock Reassessment Heart: Regular rate and rhythm Lungs: Clear Skin: Warm Capillary Refill: <2 seconds (Bola Porter MD R2) Assessment and Plan Assessment and Plan 51 year old female presents with lethargy and altered mental status. Code Status FULL CODE Discussed Condition With INDU Borden, Dr. Slaughter (Bola Porter MD R2) Attending Attestation Patient seen and examined. Case reviewed and discussed with the resident team. Agree with plan of care as discussed with me and documented in the resident note. pt seen on day of admission and waking up in the ED (Alexia Bordne MD) Problem List: (1) Altered mental status Status: Acute Plan: No leukocytosis, no fevers. Urine negative for UTI. Chest x-ray showing pulmonary edema and cardiomegaly, possible CHF picture. Has history of cocaine and THC use per records. Head CT negative for acute bleed. Abdomen/pelvis CT scan negative for acute process, but does show multiple chronic processes including ascites. Ammonia level normal. Slightly hyponatremic/hypochloremic. Creatinine elevated 3.88 but well below her baseline, and she receives hemodialysis MWF. Glucose 88. - Check urine drug screen. - Get MRI/MRA, rule out cerebral infarction (2) Prolonged Q-T interval on ECG Status: Acute Plan: QTc 474. Potassium normal. Calcium normal. On antipsychotics. - Avoid QT prolonging agents. - Telemetry - Check stat magnesium - Avoid QT prolonging agents when possible. - Cut back Trazodone from 200 to 150 qHS - Cut back Ziprasidone from 80 to 60 mg bid (3) Ascites Status: Acute Plan: Ascites noted on CT scan and on physical exam. Ammonia level normal. AST/ ALT normal. Coag panel normal. - Check dedicated liver ultrasound. (4) ESRD (end stage renal disease) Status: Chronic Plan: Hemodialysis MWF schedule, creatinine actually below baseline. Received dialysis yesterday. - Continue cinacalcet - Continue ferric citrate - Continue hemodialysis, consult nephrology for arrangements if here past tomorrow - Avoid nephrotoxic agents - Renally dose medications (5) COPD (chronic obstructive pulmonary disease) Status: Chronic Plan: Currently stable - DuoNebs PRN - Smoking cessation counseling (6) Bipolar 1 disorder Status: Chronic Plan: - Continue Trazodone from home - Continue Geodon from home - Continue Lexapro from home - Continue benztropine (7) Hypertension Status: Chronic Plan: - Continue Losartan 25 mg daily (8) Tobacco abuse Status: Chronic Plan: Nicotine patch Smoking cessation counseling (9) Nutrition, metabolism, and development symptoms Status: Acute Plan: PO fluids Slight hyponatremia, hypochloremia, monitor Renal diet, NPO after midnight for liver ultrasound (10) No contraindication to deep vein thrombosis (DVT) prophylaxis Status: Acute Plan: Heparin 5000 units tid Bilateral SCD's (Bola Porter MD R2) Problem Qualifiers (1) Altered mental status: Qualified Code: R41.0 - Disorientation (2) Ascites: Qualified Code: R18.8 - Other ascites (3) COPD (chronic obstructive pulmonary disease): Qualified Code: J44.9 - Chronic obstructive pulmonary disease, unspecified COPD type (4) Hypertension: Qualified Code: I10 - Essential hypertension Bola Porter MD R2 Oct 31, 2016 15:10 Alexia Borden MD Nov 01, 2016 15:49 Red Cell Distribution Width 21.0 Platelet Count 156 Mean Platelet Volume 9.3 Neutrophils (%) (Auto) 66.9 Lymphocytes (%) (Auto) 20.7 Monocytes (%) (Auto) 10.5 Eosinophils (%) (Auto) 1.2 Basophils (%) (Auto) 0.7 Neutrophils # (Auto) 3.5 Lymphocytes # (Auto) 1.1 Monocytes # (Auto) 0.6 Eosinophils # (Auto) 0.1 Basophils # (Auto) 0.0 CBC Comment DIFF FINAL Differential Comment Result Diagram: 10/05/16 5036 10/05/16 0084 Assessment and Plan Problem List: (1) Encephalopathy ICD Code: G93.40 Status: Acute (2) Hyponatremia ICD Code: E87.1 Status: Acute (3) Total self-care deficit ICD Code: R41.89 Status: Acute (4) Bipolar disorder ICD Code: F31.9 Status: Acute (5) HTN (hypertension) ICD Code: I10 Status: Acute (6) COPD (chronic obstructive pulmonary disease) ICD Code: J44.9 Status: Acute (7) Tobacco abuse ICD Code: Z72.0 Status: Acute Assessment and Plan A/P: 1. Encephalopathy: s/p fall w/ head trauma, noted to be lethargic per DIL. CT Head w/ no acute findings, images reviewed by me. Labs essentially at baseline. Pt arousable, but answering few questions, very poor historian. Will admit for Observation, monitor. H/o Crack/Marijuana, will check Urine Drug Screen. 2. Hyponatremia: Na 126, chronic hyponatremia based on review of previous labs. IVF for hydration, caution w/ ESRD. Repeat labs in am. 3. Total Self Care Deficit: pt lives at home w/ in shack behind trailer of Son/DIL, DIL reports inability to care for pt, pt unable to care for self. Case Management consulted, recommendation for admission pending placement as unsafe discharge home at this time. 4. Bipolar Disorder: Stable. Resume home medications. 5. HTN: BP 140-160's, will monitor, resume home medications. 6. ESRD on HD: M/W/F. Missed HD today in light of lethargy per report. Will consult Nephrology to resume HD as needed. 7. Tobacco Abuse: Counselled. NicoDerm if needed. 8. DVT Prophylaxis: SCD/Teds. 9. Social work for d/c planning as needed. 10. Case discussed w/ ER physician at length. Review of Systems Constitutional: DENIES: Diaphoretic episodes, Fatigue, Fever Past Family Social History Allergies: Coded Allergies: No Known Allergies (Unverified , 10/31/16) Physical Exam Vital Signs Vital Signs Date Time Temp Pulse Resp B/P Pulse Ox O2 Delivery O2 Flow Rate FiO2 10/31/16 14:00 98.0 72 18 171/73 99 Nasal Cannula 3 10/31/16 12:27 98.0 74 18 158/70 100 Nasal Cannula 3 10/31/16 10:27 69 18 99 Nasal Cannula 3 10/31/16 10:25 18 99 Nasal Cannula 3 10/31/16 10:10 97.8 70 18 183/81 98 Physical Exam GENERAL: This is a well-nourished, well-developed patient, in no apparent distress. SKIN: No rashes, ecchymoses or lesions. Cool and dry. HEAD: Atraumatic. Normocephalic. No temporal or scalp tenderness. EYES: Pupils equal round and reactive. Extraocular motions intact. No scleral icterus. No injection or drainage. ENT: Nose without bleeding, purulent drainage or septal hematoma. Throat without erythema, tonsillar hypertrophy or exudate. Uvula midline. Airway patent. NECK: Trachea midline. No JVD or lymphadenopathy. Supple, nontender, no meningeal signs. CARDIOVASCULAR: Regular rate and rhythm without murmurs, gallops, or rubs. RESPIRATORY: Clear to auscultation. Breath sounds equal bilaterally. No wheezes , rales, or rhonchi. GASTROINTESTINAL: Abdomen soft, non-tender, nondistended. No hepato-splenomegaly , or palpable masses. No guarding. MUSCULOSKELETAL: Extremities without clubbing, cyanosis, or edema. No joint tenderness, effusion, or edema noted. No calf tenderness. Negative Homans sign bilaterally. NEUROLOGICAL: Awake and alert. Cranial nerves II through XII intact. Motor and sensory grossly within normal limits. Five out of 5 muscle strength in all muscle groups. Normal speech. Laboratory Laboratory Tests Test 10/31/16 10/31/16 10:30 11:35 White Blood Count 3.7 Red Blood Count 3.17 Hemoglobin 9.3 Hematocrit 28.8 Mean Corpuscular Volume 91.0 Mean Corpuscular Hemoglobin 29.2 Mean Corpuscular Hemoglobin 32.1 Concent Red Cell Distribution Width 19.8 Platelet Count 127 Mean Platelet Volume 7.9 Neutrophils (%) (Auto) 70.2 Lymphocytes (%) (Auto) 16.9 Monocytes (%) (Auto) 11.7 Eosinophils (%) (Auto) 0.3 Basophils (%) (Auto) 0.9 Neutrophils # (Auto) 2.6 Lymphocytes # (Auto) 0.6 Monocytes # (Auto) 0.4 Eosinophils # (Auto) 0.0 Basophils # (Auto) 0.0 CBC Comment DIFF FINAL Differential Comment Prothrombin Time 12.6 Prothromb Time International 1.1 Ratio Activated Partial 28.3 Thromboplast Time Sodium Level 133 Potassium Level 4.1 Chloride Level 95 Carbon Dioxide Level 31.2 Anion Gap 7 Blood Urea Nitrogen 12 Creatinine 3.88 Estimat Glomerular Filtration 12 Rate Random Glucose 82 Calcium Level 9.3 Total Bilirubin 0.8 Direct Bilirubin 0.3 Indirect Bilirubin 0.5 Aspartate Amino Transf 23 (AST/SGOT) Alanine Aminotransferase 19 (ALT/SGPT) Alkaline Phosphatase 145 Ammonia 15 Total Creatine Kinase 26 Troponin I 0.02 Total Protein 6.3 Albumin 2.8 Urine Color LIGHT-YELLOW Urine Turbidity CLEAR Urine pH 8.0 Urine Specific [place] 1.004 Urine Protein 300 Urine Glucose (UA) TRACE Urine Ketones NEG Urine Occult Blood TRACE Urine Nitrite NEG Urine Bilirubin NEG Urine Urobilinogen LESS THAN 2.0 Urine Leukocyte Esterase NEG Urine RBC LESS THAN 1 Urine WBC LESS THAN 1 Urine Squamous Epithelial 1 Cells Microscopic Urinalysis Comment CULT NOT INDICATED Result Diagram: 10/31/16 1030 10/31/16 1030 Bola Porter MD R2 Oct 31, 2016 15:10
[2016-10-31] MEDS ORDERED: DOCUSATE SODIUM 50 MG/SENNA 8.6 MG TAB PO PRN (15:30)
[2016-10-31] MEDS ORDERED: SODIUM CHLORIDE 0.9% FLUSH 10 ML FLUSH IV FLUSH PRN (15:30)
[2016-10-31] MEDS ORDERED: NALOXONE HCL 0.4 MG/ML AMP IV PRN (15:30)
[2016-10-31] MEDS: HEPARIN SODIUM - SQ 10,000 UNITS/ML VIAL SQ SCH ×2 (16:00→23:45)
[2016-10-31] MEDS ORDERED: RESP: ALBUTEROL 2.5 MG/IPRATROPIUM 0.5 MG NEB (PRN) NEB (16:15)
[2016-10-31] MEDS ORDERED: RESP: ALBUTEROL 2.5 MG/3 ML NEB (PRN) NEB (16:15)
[2016-10-31] MEDS ORDERED: NICOTINE 14 MG/24 HR PATCH T-DERMAL SCH (16:15)
[2016-10-31] MEDS ORDERED: ACETAMINOPHEN/HYDROcodone 325 MG/7.5 MG TAB PO PRN (16:15)
[2016-10-31] MEDS ORDERED: FERRIC CITRATE 210 MG PO SCH ×2 (16:15→21:00)
[2016-10-31 16:32] LABS: AMPHETAMINE, URINE NEG (NEG); BARBITURATES, URINE NEG (NEG); COCAINE, URINE NEG (NEG)
--- NOTE | 2016-10-31 18:21 | RADRPT ---
EXAM DATE/TIME: 10/31/2016 17:11 [facility] COMPARISON: CT BRAIN W/O CONTRAST, October 31, 2016, 12:02. INDICATIONS : Altered mental status. MEDICAL HISTORY : Renal failure, chronic. SURGICAL HISTORY : section. Dialysis catheter. ENCOUNTER: Initial ACUITY: 1 day PAIN SCORE: 0/10 LOCATION: cranial TECHNIQUE: Multiplanar, multisequence MRI of the brain was performed without contrast. FINDINGS: CEREBRUM: The ventricles are normal for age. No evidence of midline shift, mass lesion, hemorrhage or acute in farction. No extraaxial fluid collections are seen. The pituitary gland and suprasellar cistern are normal in configuration. Small colloid cyst of the 3rd ventricle appears as a area of T2 shortening on the fast spin-echo images; no significant T1 shortening. WHITE MATTER: No significant signal abnormalities are seen in the white matter. POSTERIOR FOSSA: The cerebellum and brainstem are intact. The 4th ventricle is midline. The cerebellopontine angle is unremarkable. The cerebellar tonsils are normal in position. DIFFUSION IMAGING: No focal areas of restricted diffusion are seen. No evidence of acute infarction. EXTRACRANIAL: The visualized portions of the orbits and paranasal sinuses are unremarkable. CONCLUSION: Negative MRI of the brain without contrast Frandy Arciniega MD on October 31, 2016 at 18:15 Board Certified Radiologist. This report was verified electronically.
--- NOTE | 2016-10-31 18:22 | RADRPT ---
EXAM DATE/TIME: 10/31/2016 17:11 [facility] COMPARISON: No previous studies available for comparison. INDICATIONS : Altered mental status. MEDICAL HISTORY : Renal failure, chronic. SURGICAL HISTORY : section. Dialysis catheter. ENCOUNTER: Initial ACUITY: 1 day PAIN SCORE: 0/10 LOCATION: cranial Please note a normal MRA of the brain does not entirely exclude the possibility of a small aneurysm, nor the possibility of distal intracranial vessel disease. TECHNIQUE: 3D time of flight MRA was performed. Source images, multiplanar STS MIP, and 3D volume MIP reconstru ctions were reviewed. FINDINGS: There is excellent visualization of the major intracranial arteries out to the second-order branch ve ssels. There is no evidence for aneurysm, vessel truncation or stenosis, and no evidence for vascula r malformation. Flow is seen the anterior communicating artery. No flow seen in either PCOM. CONCLUSION: Negative MRA of the [place]. Frandy Arciniega MD on October 31, 2016 at 18:20 Board Certified Radiologist. This report was verified electronically.
[2016-10-31] MEDS: SODIUM CHLORIDE 0.9% FLUSH 10 ML FLUSH IV FLUSH SCH (20:35)
[2016-10-31] MEDS: LOSARTAN 25 MG TAB PO SCH (20:35)
[2016-10-31] MEDS: traZODone HCL 50 MG TAB PO SCH (20:35)
[2016-10-31] MEDS: ATORVASTATIN 20 MG TAB PO SCH (20:36)
[2016-10-31] MEDS: GABAPENTIN 100 MG CAP PO SCH (20:36)
[2016-10-31] MEDS ORDERED: ZIPRASIDONE HCL 60 MG CAP PO SCH (21:00)
[2016-10-31] MEDS ORDERED: traZODone HCL 100 MG TAB PO SCH (21:00)
[2016-10-31] MEDS ORDERED: ZIPRASIDONE HCL 80 MG CAP PO SCH (21:00)
[2016-10-31] MEDS ORDERED: REMOVE OLD PATCH T-DERMAL SCH (21:00)
[2016-10-31] MEDS: BENZTROPINE MESYLATE 2 MG TAB PO SCH (21:19)
[2016-10-31 21:34] LABS: MAGNESIUM 2.3 MG/DL (1.5-2.5)
[2016-11-01] VITALS (7 sets, daily range): BP systolic 125–181; BP diastolic 51–76; PULSE 70–79; RESP 18–20; TEMP 96.1–98.3; O2SAT 93–100
[2016-11-01 05:58] LABS: AUTOMATED NEUTROPHIL # 2.9 TH/MM3 (1.8-7.7); BASOPHIL % 0.7 % (0.0-2.0); EOSINOPHIL % 0.7 % (0.0-4.0); HEMATOCRIT 26.5 % (35.0-46.0); HEMO FLAGS DIFF FINAL; LYMPH % 21.9 % (9.0-44.0); MEAN CELL VOLUME 90.4 FL (80.0-100.0); MEAN CORPUSCULAR HEMOGLOBIN 30.3 PG (27.0-34.0); MEAN CORPUSCULAR HGB CONC 33.6 % (32.0-36.0); MONO % 12.4 % (0.0-8.0); NEUT % 64.3 % (16.0-70.0); PLATELET COUNT 134 TH/MM3 (150-450); RED BLOOD COUNT 2.93 MIL/MM3 (4.00-5.30); RED CELL DISTRIBUTION WIDTH 19.6 % (11.6-17.2); WHITE BLOOD COUNT 4.5 TH/MM3 (4.0-11.0)
[2016-11-01 06:02] LABS: ALT (GPT) 18 U/L (10-53); ANION GAP 10 MEQ/L (5-15); AST (GOT) 27 U/L (15-37); BICARBONATE 30.3 MEQ/L (21.0-32.0); BLOOD UREA NITROGEN 17 MG/DL (7-18); CHLORIDE 92 MEQ/L (98-107); GLOMERULAR FILTRATION RATE 9 ML/MIN (>89); POTASSIUM 4.3 MEQ/L (3.5-5.1); SODIUM (NA) 132 MEQ/L (136-145)
[2016-11-01 07:03] LABS: ALKALINE PHOSPHATASE 137 U/L (45-117); TOTAL BILIRUBIN ADULT 0.7 MG/DL (0.2-1.0)
--- NOTE | 2016-11-01 07:53 | HHI.HP ---
[facility] Service Family Medicine Primary Care Physician Ashley Wilhelm MD Admission Diagnosis AMS Diagnoses: (1) Altered mental status Diagnosis: Principal (2) Prolonged Q-T interval on ECG Diagnosis: Principal (3) Ascites Diagnosis: Principal (4) ESRD (end stage renal disease) Diagnosis: Principal (5) COPD (chronic obstructive pulmonary disease) Diagnosis: Principal (6) Bipolar 1 disorder Diagnosis: Principal (7) Hypertension Diagnosis: Principal (8) Tobacco abuse Diagnosis: Principal (9) Nutrition, metabolism, and development symptoms Diagnosis: Principal (10) No contraindication to deep vein thrombosis (DVT) prophylaxis Diagnosis: Principal International Travel<30 Days: No Contact w/Intl Traveler<30days: No Known Affected Area: No History of Present Illness HISTORY OBTAINED FROM SECONDARY SOURCES, PATIENT DOES NOT PROVIDE MUCH HISTORY Ms Cheema is a 51 year old female with a history of anxiety, bipolar disorder, COPD, tobacco abuse, and ESRD on hemodialysis who presented with altered mental status, weakness, and lethargy. She had been feeling sleepy and out of it. She was discharged from [facility] the day before yesterday. Home health nurse found her to be lethargic and out of it and recommended she be evaluated in the hospital. gave her two trazodone overnight and is uncertain if he was only supposed to give her one. She also had generalized weakness. Per , at her baseline she sometimes requires a walker, does have auditory hallucinations at baseline from bipolar disorder. Per history from the , she was "unresponsive" when he tried to get her out of bed this morning. 911 was called. She fell on her buttocks while they were getting her into the ambulance. She did not hit her head. Gradually in the ED she improved and came back to her presumed normal being able to answer questions but not quickly and still not a good historian. She does very much want to go home as soon as she can. She has no complaints but was seen to have runs of V tach. She does not have sustained V tach and there is no torsade seen. She was found to have QT prolongation on her first EKG but her had given her too much trazadone. On admission, her geodon and other meds were decreased. Her magnesium was checked and was in the high end of the normal range. Per her nurse, she was a bit difficult to wake up this am and required sternal rub to awaken but she was not lethargic or sedated this am. She is a difficult historian as she does not spontaneously offer much or any information but when asked about hallucinations which she has had in the past, she nodded that they were occurring but she denied suicidal ideation. It is unclear at this point if decreasing her goedon in particular has had a deleterious effect as she is not very forthcoming and I do not know her normal baseline. Chrisdon is associated with the most QT prolongation of all the antipsychotics. Hopefully, her can give us some insight into her normal condition and her current functioning compared to that. Perhaps record could be obtained from [facility] as well. Review of Systems ROS Limitations: Clinical Condition, Psychotic, Poor Historian Psychiatric: COMPLAINS OF: Confusion, Hallucinations, DENIES: Agitation, Suicidal Ideation Past Family Social History Past Medical History ESRD, dialysis MWF Anxiety Bipolar disorder HTN HLD COPD Tobacco abuse Hx of cocaine/THC use Tremors Auditory hallucinations Past Surgical History A/V SHUNT- LEFT CHEST X3 Ovarian cyst drainage Allergies: Coded Allergies: No Known Allergies (Unverified , 10/31/16) Family History Mom: , old age Father: unknown Social History No alcohol use Smokes 1/2 PPD, quit during [facility] History of cocaine and marijuana use in the past Lives with , niece, niece's boyfriend Lives in [place] in back of house, has power, air conditioning, but requires use of front house for bathroom/kitchen Physical Exam Vital Signs Vital Signs Date Time Temp Pulse Resp B/P Pulse Ox O2 Delivery O2 Flow Rate FiO2 11/01/16 04:00 98.2 70 20 125/62 96 11/01/16 00:00 97.7 70 20 141/63 100 10/31/16 23:30 Nasal Cannula 2.00 10/31/16 21:29 73 10/31/16 20:06 100 Nasal Cannula 2.00 10/31/16 20:06 97.8 74 18 151/69 100 10/31/16 20:00 90 Room Air 10/31/16 18:00 96.7 79 18 160/71 92 10/31/16 17:54 Room Air 10/31/16 16:35 76 16 162/72 97 10/31/16 15:34 76 16 162/74 99 Nasal Cannula 2 10/31/16 14:00 98.0 72 18 171/73 99 Nasal Cannula 3 10/31/16 12:27 98.0 74 18 158/70 100 Nasal Cannula 3 10/31/16 10:27 69 18 99 Nasal Cannula 3 10/31/16 10:25 18 99 Nasal Cannula 3 10/31/16 10:10 97.8 70 18 183/81 98 Physical Exam GENERAL: sitting in chair, no distress, awake and alert. Answers questions, oriented to person but not time or place. SKIN: Mild abrasion on abdomen, no scalp abrasions, tanned skin. Hematoma over the left buttocks. HEENT: Normocephalic, no nasal discharge, normal pharynx, no conjunctivitis, no scleral icterus NECK: Trachea midline. No JVD or lymphadenopathy. Supple, nontender, no meningeal signs. CARDIOVASCULAR: Regular rate and rhythm without murmurs, gallops, or rubs. Normal pulses. RESPIRATORY: Clear to auscultation. Breath sounds equal bilaterally. No wheezes , rales, or rhonchi. GASTROINTESTINAL: Abdomen soft, non-tender, nondistended. Ascites present. Soft palpable mass felt in abdomen. MUSCULOSKELETAL: Extremities without clubbing, cyanosis, or edema. No joint tenderness, effusion, or edema noted. No calf tenderness. Negative Homans sign bilaterally. NEUROLOGICAL: Awake and alert. Oriented to person but not time or place. Cranial nerves II through XII intact. Motor and sensory grossly within normal limits. PSYCH: Not responding to internal stimuli, not agitated, slow to respond to questions but will answer, does not know the answer to anything besides simple questions. Laboratory Laboratory Tests Test 10/31/16 10/31/16 10/31/16 11/01/16 10:30 11:35 20:02 05:14 White Blood Count 3.7 4.5 Red Blood Count 3.17 2.93 Hemoglobin 9.3 8.9 Hematocrit 28.8 26.5 Mean Corpuscular Volume 91.0 90.4 Mean Corpuscular Hemoglobin 29.2 30.3 Mean Corpuscular Hemoglobin 32.1 33.6 Concent Red Cell Distribution Width 19.8 19.6 Platelet Count 127 134 Mean Platelet Volume 7.9 8.1 Neutrophils (%) (Auto) 70.2 64.3 Lymphocytes (%) (Auto) 16.9 21.9 Monocytes (%) (Auto) 11.7 12.4 Eosinophils (%) (Auto) 0.3 0.7 Basophils (%) (Auto) 0.9 0.7 Neutrophils # (Auto) 2.6 2.9 Lymphocytes # (Auto) 0.6 1.0 Monocytes # (Auto) 0.4 0.6 Eosinophils # (Auto) 0.0 0.0 Basophils # (Auto) 0.0 0.0 CBC Comment DIFF FINAL DIFF FINAL Differential Comment Prothrombin Time 12.6 Prothromb Time International 1.1 Ratio Activated Partial 28.3 Thromboplast Time Sodium Level 133 132 Potassium Level 4.1 4.3 Chloride Level 95 92 Carbon Dioxide Level 31.2 30.3 Anion Gap 7 10 Blood Urea Nitrogen 12 17 Creatinine 3.88 4.95 Estimat Glomerular Filtration 12 9 Rate Random Glucose 82 83 Calcium Level 9.3 9.5 Total Bilirubin 0.8 0.7 Direct Bilirubin 0.3 Indirect Bilirubin 0.5 Aspartate Amino Transf 23 27 (AST/SGOT) Alanine Aminotransferase 19 18 (ALT/SGPT) Alkaline Phosphatase 145 137 Ammonia 15 Total Creatine Kinase 26 25 Troponin I 0.02 0.02 B-Type Natriuretic Peptide 1105 Total Protein 6.3 6.0 Albumin 2.8 2.8 Urine Color LIGHT-YELLOW Urine Turbidity CLEAR Urine pH 8.0 Urine Specific [place] 1.004 Urine Protein 300 Urine Glucose (UA) TRACE Urine Ketones NEG Urine Occult Blood TRACE Urine Nitrite NEG Urine Bilirubin NEG Urine Urobilinogen LESS THAN 2.0 Urine Leukocyte Esterase NEG Urine RBC LESS THAN 1 Urine WBC LESS THAN 1 Urine Squamous Epithelial 1 Cells Microscopic Urinalysis Comment CULT NOT INDICATED Urine Opiates Screen NEG Urine Barbiturates Screen NEG Urine Amphetamines Screen NEG Urine Benzodiazepines Screen NEG Urine Cocaine Screen NEG Urine Cannabinoids Screen NEG Lactic Acid Level 0.9 Phosphorus Level 3.2 Magnesium Level 2.3 Vitamin B12 Level 1720 Date/Time Procedure Status Source Growth 10/31/16 20:10 Aerobic Blood Culture Received Blood Peripheral Pending 10/31/16 20:10 Anaerobic Blood Culture Received Blood Peripheral Pending Result Diagram: 11/01/16 0514 11/01/16 0514 Imaging Last 72 hours Impressions Chest X-Ray 10/31/16 1019 Signed Impressions: Service Date/Time: Monday, October 31, 2016 10:58 - CONCLUSION: 1. Diffuse increased interstitial markings with borderline cardiomegaly likely representing edema and possible CHF. 2. Mild to moderate right pleural effusion. Augustin Atkinson MD Head CT 10/31/16 0000 Signed Impressions: Service Date/Time: Monday, October 31, 2016 12:02 - CONCLUSION: 1. No acute abnormality seen. 2. 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 Augustin Atkinson MD Abdomen/Pelvis CT 10/31/16 0000 Signed Impressions: Service Date/Time: Monday, October 31, 2016 12:06 - CONCLUSION: 1. 8 cm hematoma in the subcutaneous tissues at the superomedial left gluteal region. 2. Suspected anasarca with edema seen throughout the subcutaneous tissues. 3. Moderate right pleural effusion with accompanying atelectasis or consolidation at the right lower lobe. 4. Ascites seen around the liver, spleen and pelvis. The amount of ascites is mild to moderate. It appears too small to drain. 5. Venous stents in place in the pelvis. 6. Chronic atrophy of the kidneys bilaterally. Augustin Atkinson MD Assessment and Plan Assessment and Plan 51 year old female presented with lethargy and altered mental status. Problem List: (1) Altered mental status Status: Acute Plan: No leukocytosis, no fevers. Urine negative for UTI. Chest x-ray showing pulmonary edema and cardiomegaly, possible CHF picture. Has history of cocaine and THC use per records. Head CT negative for acute bleed. Abdomen/pelvis CT scan negative for acute process, but does show multiple chronic processes including ascites. Ammonia level normal. Slightly hyponatremic/hypochloremic. Creatinine elevated 3.88 but well below her baseline, and she receives hemodialysis MWF. Glucose 88. per reports she was difficult to rouse and her gave her too much trazadone which probably contributed if not being the sole cause as she has shown steady improvement with decreased med doses here in the hospital - Checked urine drug screen. - had MRI/MRA, rule out cerebral infarction and they were normal -has ascites, can consider ammonia level (2) Prolonged Q-T interval on ECG Status: Acute Plan: QTc 474 on initial EKG per my measurement it is slightly lower on her latest EKG. Potassium normal. Calcium normal. On antipsychotics. - Avoid QT prolonging agents. or at least decrease them as she could have serious problems if stopped with her history of Psychiatric admissions - Telemetry - magnesium fine - Avoid QT prolonging agents when possible. - Cut back Trazodone from 200 to 150 qHS - Cut back Ziprasidone from 80 to 60 mg bid, now will only give at night consider asking Psychiatry to help in choosing less QT prolonging agents (3) Ascites Status: Acute Plan: Ascites noted on CT scan and on physical exam. Ammonia level normal. AST/ ALT normal. Coag panel normal. - Checked dedicated liver ultrasound. (4) ESRD (end stage renal disease) Status: Chronic Plan: Hemodialysis MWF schedule, creatinine actually below baseline. Received dialysis yesterday. - Continue cinacalcet - Continue ferric citrate - Continue hemodialysis, consult nephrology for arrangements if here past tomorrow - Avoid nephrotoxic agents - Renally dose medications (5) COPD (chronic obstructive pulmonary disease) Status: Chronic Plan: Currently stable - DuoNebs PRN - Smoking cessation counseling (6) Bipolar 1 disorder Status: Chronic Plan: - Continue Trazodone from home but no doubling up on meds and will decrease dose - Continue Geodon from home greatly decreased dose - Continue Lexapro from home - Continue benztropine (7) Nonsustained ventricular tachycardia Status: Acute Plan: will check an echocardiogram. decreased QT prolonging agents and will continue to decrease. this does not appear to be torsade which is treated with magnesium. will hold magnesium as she is a renal pt and her levels were fine. If her EF is low she may benefit from a defibrillator. She is completely asymptomatic and the runs of V tach last only a short time so far. Consider consulting Cardiology if any worsening or symptoms (8) Hypertension Status: Chronic Plan: - Continue Losartan 25 mg daily (9) Tobacco abuse Status: Chronic Plan: Nicotine patch Smoking cessation counseling (10) Nutrition, metabolism, and development symptoms Status: Acute Plan: PO fluids Slight hyponatremia, hypochloremia, monitor Renal diet (11) No contraindication to deep vein thrombosis (DVT) prophylaxis Status: Acute Plan: Heparin 5000 units tid Bilateral SCD's Problem Qualifiers (1) Altered mental status: Qualified Code: R41.0 - Disorientation (2) Ascites: Qualified Code: R18.8 - Other ascites (3) COPD (chronic obstructive pulmonary disease): Qualified Code: J44.9 - Chronic obstructive pulmonary disease, unspecified COPD type (4) Hypertension: Qualified Code: I10 - Essential hypertension Alexia Borden MD Nov 01, 2016 07:53
[2016-11-01] MEDS ORDERED: REMOVE OLD PATCH T-DERMAL SCH (09:00)
[2016-11-01] MEDS ORDERED: NON-FORMULARY DRUG (Cinacalcet (Sensipar) 60 MG) PO SCH (09:00)
[2016-11-01] MEDS: SODIUM CHLORIDE 0.9% FLUSH 10 ML FLUSH IV FLUSH SCH ×2 (09:00→21:00)
--- NOTE | 2016-11-01 09:30 | RADRPT ---
EXAM DATE/TIME: 11/01/2016 08:35 [place] COMPARISON: CT ABDOMEN & PELVIS W/O CONTRAST, October 31, 2016, 12:06. INDICATIONS : Abnormal labs. MEDICAL HISTORY : Chronic obstructive pulmonary disease. Renal failure. Dialysis. Substance use. SURGICAL HISTORY : section. AV shunt. ENCOUNTER: Initial ACUITY: 1 day PAIN SCORE: 2/10 LOCATION: Right upper quadrant MEASUREMENTS: LIVER: 18.7 cm length COMMON DUCT: 5 mm RIGHT KIDNEY: 4.8 x 1.8 x 2.1 cm SPLEEN: 10.3 cm length FINDINGS: LIVER: Liver appears enlarged. No focal mass is seen. There is ascites seen around the liver. COMMON DUCT: No intraluminal mass or stone visualized. GALLBLADDER: Contains no stones, demonstrates no wall thickening or pericholecystic fluid. PANCREAS: The visualized portions are within normal limits. RIGHT KIDNEY: The right kidney is small and echogenic consistent with chronic atrophy. SPLEEN: No focal lesion. CONCLUSION: Hepatomegaly with ascites. Augustin Atkinson MD on November 01, 2016 at 9:25 Board Certified Radiologist. This report was verified electronically.
[2016-11-01] MEDS: BENZTROPINE MESYLATE 2 MG TAB PO SCH ×2 (12:09→21:03)
[2016-11-01] MEDS: ESCITALOPRAM OXALATE 10 MG TAB PO SCH (12:09)
[2016-11-01] MEDS: GABAPENTIN 100 MG CAP PO SCH ×2 (12:09→21:03)
[2016-11-01] MEDS: CLOPIDOGREL 75 MG TAB PO SCH (12:09)
[2016-11-01] MEDS: LOSARTAN 25 MG TAB PO SCH ×2 (12:09→21:03)
[2016-11-01] MEDS: VITAMIN B CMPLX/VITC/FOLIC AC CAP PO SCH (12:09)
[2016-11-01] MEDS: CINACALCET HYDROCHLORIDE 30 MG TAB PO SCH (12:09)
[2016-11-01] MEDS: HEPARIN SODIUM - SQ 10,000 UNITS/ML VIAL SQ SCH ×2 (12:10→17:10)
[2016-11-01] MEDS ORDERED: SODIUM CHLOR 0.9% 1000 ML INJ 1,000 ML IV PRN ×3 (12:57)
[2016-11-01] MEDS ORDERED: SODIUM CHLORIDE 0.9% FLUSH 10 ML FLUSH IV FLUSH PRN (13:00)
[2016-11-01] MEDS ORDERED: diphenhydrAMINE HCL 25 MG CAP PO PRN (13:00)
[2016-11-01] MEDS ORDERED: ALBUMIN HUMAN 25% 25 GM/100 ML BAGP IV PRN (13:00)
[2016-11-01] MEDS ORDERED: NITROGLYCERIN 0.4 MG SL 25 TABS/BTL SL PRN (13:00)
[2016-11-01] MEDS ORDERED: GENTAMICIN SULFATE (DIALYSIS USE ONLY) 20 MG/2 ML VIAL IV PRN (13:00)
[2016-11-01] MEDS ORDERED: ONDANSETRON HCL 4 MG/2 ML VIAL IV PRN (13:00)
[2016-11-01] MEDS ORDERED: HEPARIN SODIUM - IV 10,000 UNITS/10 ML VIAL IVF PRN (13:00)
[2016-11-01] MEDS ORDERED: ACETAMINOPHEN 325 MG TAB PO PRN (13:00)
[2016-11-01] MEDS ORDERED: cloNIDine HCL 0.1 MG TAB PO PRN (13:00)
[2016-11-01] MEDS ORDERED: HEPARIN SODIUM - IV 10,000 UNITS/10 ML VIAL PRN (13:00)
[2016-11-01] MEDS ORDERED: MANNITOL 12.5 GM/50 ML VIAL IV PRN (13:00)
--- NOTE | 2016-11-01 13:48 | MB ---
cc: KYM SALAMANCA MD DATE OF CONSULTATION: 11/01/2016 REASON FOR CONSULTATION: End-stage renal disease on hemodialysis for management. HISTORY OF PRESENT ILLNESS: This is 51-year-old female with past medical history of hypertension, bipolar disorder, chronic obstructive pulmonary disease, history of anxiety, end-stage renal disease on hemodialysis who was brought to the hospital because of lethargy and altered mental status. I was called to see the patient for the management of dialysis. The patient has been getting hemodialysis Wednesday, Wednesday and Wednesday in [place] and she has been following with Dr. Vinson. The patient has an AV graft in the left upper chest. She has been admitted here before in September and at that time she had hyponatremia and she also had altered mental status. Her sodium was 123 at that time. According to the patient, she had her hemodialysis done on Wednesday and she does not know exactly why they brought her here but according to the notes, when she was brought in here she was quite lethargic and sleepy. She has recently discharged from [facility]. The home health care nurse saw her yesterday and recommended to bring her to the hospital. She also history of falling on her buttocks when getting into the ambulance. She is currently sitting in the chair, oriented x1 and not in acute distress. She is not answering most of the questions. PAST MEDICAL HISTORY: 1. Hypertension. 2. Chronic obstructive pulmonary disease. 3. Bipolar disorder. 4. Anxiety disorder. 5. End-stage renal disease on hemodialysis. PAST SURGICAL HISTORY: 1. Multiple surgeries for AV fistula and graft. The last one she had was in the left upper chest where she has the AV graft. 2. History of section. 3. Ovarian cyst drainage. REVIEW OF SYSTEMS: There is no history of fever. She denies any headache or dizziness. There is no shortness of breath. No chest pain. She is feeling weak and tired, not eating well, has decreased appetite, nausea. There is no vomiting. SOCIAL HISTORY: The patient is and lives with her . She has a history of cocaine and marijuana use. She smokes half a pack per day but stopped recently when she was in [facility]. FAMILY HISTORY: Noncontributory. ALLERGIES: SHE HAS NO KNOWN DRUG ALLERGIES. MEDICATIONS: Currently she is on: 1. Neurontin 200 milligrams twice a day. 2. Nephrocaps one capsule daily. 3. Plavix 75 milligrams once a day. 4. Lexapro 10 milligrams daily. 5. Sensipar 60 milligrams once a day. 6. Lipitor 20 milligrams at bedtime. 7. Trazodone 150 milligrams at bedtime. 8. Geodon 60 milligrams at bedtime. 9. Cogentin 2 milligrams q. 12 hours. 10. Losartan 25 milligrams q. 12 hours. 11. 5000 units q.8 h. 12. [place] as needed. PHYSICAL EXAMINATION: GENERAL: On examination, the patient is awake and alert and oriented x1 and not in acute distress. VITAL SIGNS: Her last blood pressure was 142/61, temperature 96.1, oxygen saturation 100% on two liters nasal cannula. HEAD, EYES, EARS, NOSE, THROAT: The pupils are equal and reacting to light. Nonicteric sclerae. Conjunctivae are pale. NECK: The neck is supple. JVD is not elevated. LUNGS: The patient has bilateral decreased air entry with occasional wheezing. HEART: S1 and S2 regular rhythm. There is a bruit in the AV graft which she has in the left upper chest. ABDOMEN: Abdomen soft and lax. There is no tenderness. Bowel sounds positive. EXTREMITIES: There is 1+ edema. INVESTIGATIONS: White blood cell count is 4.5, hemoglobin 8.9, platelet count of 134,000. Sodium 132, potassium 4.3, chloride 92, bicarbonate 30.3, BUN 17, creatinine 4.9, calcium 9.5, AST and ALT normal, alkaline phosphatase 137. Total protein 6.0, albumin is 2.8. Vitamin B12 is 1720. INR 1.0. Urinalysis showing trace occult blood. Toxicology screen was negative. Cultures are negative so far. IMAGING STUDIES: Ultrasound of the liver was done which shows hepatomegaly with some ascites. Chest x-ray was done which shows increased interstitial markings with borderline cardiomegaly. Mild to moderate right pleural effusion. CT scan of the abdomen and pelvis was done without IV contrast and shows an 8 cm hematoma in the subcutaneous tissue in the left gluteal region, anasarca, moderate right pleural effusion, ascites around the liver, atrophic kidneys bilaterally, venous stasis in the pelvis. MRI of the brain was done which was negative for any lesions. CT scan of the brain was done which shows suspected stable cyst of the third ventricle. MRA of the brain was done which was negative for [place] lesion. ASSESSMENT AND PLAN: 1. Acute encephalopathy with confusion. 2. Ascites and possible chronic liver disease. 3. End-stage renal disease on hemodialysis. 4. Chronic obstructive pulmonary disease. 5. Bipolar disorder. 6. Hypertension. 7. Anemia. The patient has had a negative CT scan and MRI. Clinically she is improving. Will need to rule out also sepsis. Her cultures are negative so far. She is not in gross fluid overload status. The potassium is normal. The bicarb is normal. There is no acute urgent need for dialysis at present. She will be having dialysis Wednesday, Wednesday, Wednesday. I will plan for dialysis tomorrow. Her hemoglobin is low so she will getting Epogen with the dialysis. Thank you for the consultation and I will follow the patient while she is in the hospital. MD SARINA Tatum/NOREEN /12:52 PM /1:33 PM
--- NOTE | 2016-11-01 14:09 | EKG ---
Date Performed: 11/01/2016 Time Performed: 11:42:11 PTAGE: 51 years EKG: Sinus rhythm R replaces Q in V6, otherwise unchanged from prior NORMAL ECG PREVIOUS TRACING : 11/01/2016 04.21 DOCTOR: Gregor Martell Interpretating Date/Time 11/01/2016 14:08:23
--- NOTE | 2016-11-01 14:09 | EKG ---
Date Performed: 11/01/2016 Time Performed: 04:21:58 PTAGE: 51 years EKG: Sinus rhythm Prolonged QT interval Possible lateral infarct - age undetermined Q waves in V6 is new since prior t racing, possibly due to lead placement, but cannot rule out injury Clinical correlation is recommende d Abnormal ECG PREVIOUS TRACING : 10/31/2016 10.55 DOCTOR: Gregor Martell Interpretating Date/Time 11/01/2016 14:07:58
[2016-11-01] MEDS: ZIPRASIDONE HCL 60 MG CAP PO SCH (21:00)
[2016-11-01] MEDS: ATORVASTATIN 20 MG TAB PO SCH (21:02)
[2016-11-01] MEDS: traZODone HCL 50 MG TAB PO SCH (21:03)
[2016-11-02] VITALS (7 sets, daily range): BP systolic 153–191; BP diastolic 63–76; PULSE 72–77; RESP 17–18; TEMP 97.6–98.5; O2SAT 90–92
[2016-11-02] MEDS: HEPARIN SODIUM - SQ 10,000 UNITS/ML VIAL SQ SCH ×3 (01:09→16:19)
[2016-11-02] MEDS: SODIUM CHLORIDE 0.9% FLUSH 10 ML FLUSH IV FLUSH SCH ×2 (09:00→21:47)
[2016-11-02] MEDS ORDERED: PILL SPLITTER OTHER PRN (11:15)
[2016-11-02] MEDS: GELATIN 12 MM/7 MM FOAM TOP PRN (12:03)
[2016-11-02] MEDS: EPOETIN ALFA 10,000 UNITS/ML VIAL IV PRN (12:03)
--- NOTE | 2016-11-02 12:08 | HHI.FPPN ---
Subjective Remarks Patient was seen and examined this morning. She was sitting up at the side of the bed with PT at the time. She was awake and responsive to yes or no questions but appeared to be tired. She did not offer much conversation this morning. (Phylicia Tillman MD R1) Objective Vitals Vital Signs Date Time Temp Pulse Resp B/P Pulse Ox O2 Delivery O2 Flow Rate FiO2 11/02/16 10:39 90 Nasal Cannula 2.00 11/02/16 08:04 97.8 73 18 155/76 90 11/02/16 04:42 97.8 77 17 191/75 92 11/02/16 02:57 Nasal Cannula 2.00 11/02/16 00:46 97.6 75 18 176/69 92 11/01/16 20:40 98.3 78 18 181/76 93 11/01/16 16:00 98.0 79 18 131/51 95 I/O 11/01/16 11/01/16 11/01/16 11/02/16 11/02/16 11/02/16 07:00 15:00 23:00 07:00 15:00 23:00 Intake Total 120 ml 120 ml Balance 120 ml 120 ml Intake Oral 120 ml 120 ml # Voids 0 0 # Bowel Movements 0 0 (Phylicia Tillman MD R1) Result Diagram: 11/01/16 0514 11/01/16 0514 Imaging Last Impressions Liver Ultrasound 11/01/16 0000 Signed Impressions: Service Date/Time: Tuesday, November 01, 2016 08:35 - CONCLUSION: Hepatomegaly with ascites. Augustin Atkinson MD Chest X-Ray 10/31/16 1019 Signed Impressions: Service Date/Time: Monday, October 31, 2016 10:58 - CONCLUSION: 1. Diffuse increased interstitial markings with borderline cardiomegaly likely representing edema and possible CHF. 2. Mild to moderate right pleural effusion. Augustin Atkinson MD Head Magnetic Resonance Angiography 10/31/16 0000 Signed Impressions: Service Date/Time: Monday, October 31, 2016 17:11 - CONCLUSION: Negative MRA of the [place]. Frandy Arciniega MD Head CT 10/31/16 0000 Signed Impressions: Service Date/Time: Monday, October 31, 2016 12:02 - CONCLUSION: 1. No acute abnormality seen. 2. 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 Augustin Atkinson MD Brain MRI 10/31/16 0000 Signed Impressions: Service Date/Time: Monday, October 31, 2016 17:11 - CONCLUSION: Negative MRI of the brain without contrast Frandy Arciniega MD Abdomen/Pelvis CT 10/31/16 0000 Signed Impressions: Service Date/Time: Monday, October 31, 2016 12:06 - CONCLUSION: 1. 8 cm hematoma in the subcutaneous tissues at the superomedial left gluteal region. 2. Suspected anasarca with edema seen throughout the subcutaneous tissues. 3. Moderate right pleural effusion with accompanying atelectasis or consolidation at the right lower lobe. 4. Ascites seen around the liver, spleen and pelvis. The amount of ascites is mild to moderate. It appears too small to drain. 5. Venous stents in place in the pelvis. 6. Chronic atrophy of the kidneys bilaterally. Augustin Atkinson MD Objective Remarks GENERAL: Sitting up with physical therapist, eyes open, no distress, does seem confused confused. She is awake and alert. Answers no questions only SKIN: Mild abrasion on abdomen, no scalp abrasions, tanned skin. Hematoma over the left buttocks. The right knee has a callus and 2 open oozing wounds approximately 1 cm each which are oozing blood. HEENT: Normocephalic, no nasal discharge, normal pharynx, no conjunctivitis, no scleral icterus NECK: Trachea midline. No JVD or lymphadenopathy. Supple, nontender, no meningeal signs. CARDIOVASCULAR: Heart sounds are impossible to hear given fistula murmur RESPIRATORY: Clear to auscultation. Breath sounds equal bilaterally. No wheezes , rales, or rhonchi. GASTROINTESTINAL: Abdomen soft, non-tender, nondistended. Ascites present. MUSCULOSKELETAL: Extremities without clubbing, cyanosis, or edema. No joint tenderness, effusion, or edema noted. No calf tenderness. Negative Homans sign bilaterally. NEUROLOGICAL: Awake and alert. Does not appear to be oriented. No obvious motor or strength deficits but difficult to assess given patient confusion PSYCH: Not responding to internal stimuli, not agitated, slow to respond to questions and only answers yes or no Medications and IVs Inpatient Medications Acetaminophen (Tylenol) 650 mg UNSCH PRN PO for headach, pain, temp > 101F; Start 11/01/16 at 13:00 Acetaminophen/ Hydrocodone Bitart ([place] 7.5-325 Mg) 1 tab Q4H PRN PO PAIN SCALE 6 TO 10; Start 10/31/16 at 16:15 Albumin Human (Albumin 25% Inj) 25 gm UNSCH PRN IV WITH DIALYSIS; Start at 13:00 Albuterol Sulfate (Albuterol Neb) 2.5 mg Q2HR NEB PRN NEB wheezing; Start 10/31 at 16:15 Albuterol/ Ipratropium (Duoneb Neb) 1 ampule Q4HR NEB PRN NEB wheezing; Start 10/31/16 at 16:15 Atorvastatin Calcium (Lipitor) 20 mg HS PO Last administered on 11/01/16 21:02 ; Start 10/31/16 at 21:00 Benztropine Mesylate (Cogentin) 2 mg Q12HR PO Last administered on 11/01/16 21 :03; Start 10/31/16 at 21:00 Cinacalcet (Sensipar) 60 mg DAILY PO Last administered on 11/01/16 12:09; Start 11/01/16 at 09:00 Clonidine (Catapres) 0.1 mg UNSCH PRN PO for BP > 180/100 X 2 readings Last administered on 11/02/16 04:25; Start 11/01/16 at 13:00 Clopidogrel Bisulfate (Plavix) 75 mg DAILY PO Last administered on 11/01/16 12 :09; Start 11/01/16 at 09:00 Diphenhydramine HCl (Benadryl) 25 mg UNSCH PRN PO for hives/itching/anaphylaxis ; Start 11/01/16 at 13:00 Epoetin Mauri (Epogen Inj) 10,000 units UNSCH PRN IV WITH DIALYSIS Last administered on 11/02/16 12:03; Start 11/01/16 at 13:00 Escitalopram Oxalate (Lexapro) 10 mg DAILY PO Last administered on 11/01/16 12 :09; Start 11/01/16 at 09:00 Gabapentin (Neurontin) 200 mg BID PO Last administered on 11/01/16 21:03; Start 10/31/16 at 21:00 Gelatin (Gelfoam 12 Mm/7 Mm Top) 1 foam UNSCH PRN TOP SEE LABEL COMMENTS Last administered on 11/02/16t 12:03; Start 11/01/16 at 13:00 Gentamicin Sulfate (Gentamicin (Dialysis) Inj) 20 mg UNSCH PRN IV WITH DIALYSIS ; Start 11/01/16 at 13:00 Heparin Sodium (Porcine) (Heparin Inj) UNSCH PRN .XX WITH DIALYSIS; Start at 13:00 Heparin Sodium (Porcine) 8000 units 8,000 units UNSCH PRN IVF WITH DIALYSIS; Start 11/01/16 at 13:00 Losartan Potassium (Cozaar) 25 mg Q12HR PO Last administered on 11/01/16t 21:03 ; Start 10/31/16 at 21:00 Mannitol (Mannitol Inj) 12.5 gm UNSCH PRN IV WITH DIALYSIS; Start 11/01/16 at 13:00 Miscellaneous (Pill Splitter) 1 ea UNSCH PRN OTHER SEE LABEL COMMENTS; Start at 11:15 Miscellaneous Information 1 HS T-DERMAL ; Start 10/31/16 at 21:00; Stop at 21:00; Status DC Naloxone HCl (Narcan Inj) 0.4 mg UNSCH PRN IV SEE LABEL COMMENTS; Start at 15:30 Nicotine (Habitrol 14 Mg Patch.24 Hr) 1 patch DAILY T-DERMAL ; Start 10/31/16 at 16:15; Stop 10/31/16 at 16:28; Status DC Nitroglycerin (Nitrostat Sl) 0.4 mg UNSCH PRN SL CHEST PAIN; Start 11/01/16 at 13:00 Ondansetron HCl (Zofran Inj) 4 mg UNSCH PRN IV WITH DIALYSIS; Start 11/01/16 at 13:00 Patient Own Medication PT OWN MED: RAVEN... BID PO ; Start 10/31/16 at 21:00; Status Hold Senna/Docusate Sodium (Katalina-Colace) 2 tab BID PRN PO constipation; Start at 15:30 Sodium Chloride (NS 1000 ml Inj) 1,000 ml @ 0 mls/hr Q0M PRN IV WITH DIALYSIS; Start 11/01/16 at 12:57 Sodium Chloride (NS Flush) 5 ml UNSCH PRN IV FLUSH WITH DIALYSIS; Start at 13:00 Trazodone HCl (Desyrel) 75 mg HS PO ; Start 11/02/16 at 21:00 Vitamin B Complex/ Vit C/Folic Acid (Nephrocaps) 1 cap DAILY PO Last administered on 11/01/16 12:09; Start 11/01/16 at 09:00 Ziprasidone (Geodon) 60 mg HS PO Last administered on 11/01/16 21:00; Start at 21:00 (Phylicia Tillman MD R1) A/P Assessment and Plan 51 year old female with a history of ESRD and bipolar depression presented with lethargy and altered mental status. Discharge Planning Unclear at this time. Patient psychiatric baseline is not well elucidated. Psychology consulted for assistance with medical management. We'll continue to monitor medically at this time, and patient may require transfer to psychiatric unit thereafter (Phylicia Tillman MD R1) Attending Attestation Patient seen and examined. Case reviewed and discussed with the resident team. Agree with plan of care as discussed with me and documented in the resident note. Ms Cheema is hard to wake up but better today than yesterday when she required sternal rub from her nurse and the day before when she gabriella not wake up until the afternoon. She seems to be more alert with less medicine (Alexia Borden MD) Problem List: (1) Altered mental status Status: Acute Plan: Sedation has improved significantly. Psychiatry was consulted, appreciate recommendations regarding medication management for psychiatric conditions which likely contributed to AMS. Hospital course: No leukocytosis, no fevers. Urine negative for UTI. Chest x-ray showing pulmonary edema and cardiomegaly, possible CHF picture. Has history of cocaine and THC use per records. Head CT negative for acute bleed. Abdomen/pelvis CT scan negative for acute process, but does show multiple chronic processes including ascites. Ammonia level normal. Slightly hyponatremic/hypochloremic. Creatinine elevated 3.88 but well below her baseline, and she receives hemodialysis MWF. Glucose 88. per reports she was difficult to rouse and her gave her too much trazodone which probably contributed if not being the sole cause as she has shown steady improvement with decreased med doses here in the hospital UDS on admission was negative Had MRI/MRA, rule out cerebral infarction and they were normal Has cirrhosis and ascites, however, ammonia level was normal (2) Prolonged Q-T interval on ECG Status: Acute Plan: Likely related to psychotropic medications. She was on high doses which had been titrated down this hospital stay. - Continue to monitor on telemetry and repeat EKG if indicated by new symptoms. - Avoid QT prolonging agents. or at least decrease them as she could have serious problems if stopped with her history of Psychiatric admissions Hospital course: QTc 474 on initial EKG. Potassium normal. Calcium normal. On antipsychotics. Repeat EKG 11/01 showing QTc was 428 Magnesium within normal limits Psychotropic medications adjusted as below, appreciate psychiatry recs (3) Bipolar 1 disorder Status: Chronic Plan: Cut back Trazodone to 75mg hs. Ziprasidone 60 mg once nightly Lexapro home dose 10 mg daily Gabapentin home dose 200 mg twice a day Benztropine home dose 2 mg twice a day Consult Psychiatry to help in medication management and choosing less QT prolonging agents Hospital Course: Does not appear to be harm to self or others On review of EMR, patient was in [facility] inpatient psych unit in June 2016. At that time her baseline was a and O 3 and she did endorse auditory hallucination at that time Psychotropic medication regimen as follows reported in June 2016 medical records: Trazodone 200 mg nightly Lexapro 10 mg daily Ziprasidone 80 mg twice a day Gabapentin 200 mg twice a day Benztropine 2 mg twice a day Ativan 1 mg every 4hr PRN anxiety Hydroxyzine 10 mg twice a day She presented in September 2016 status post fall. At that time she received CT head and had hyponatremia. Home psychotropic medications were reportedly resumed at that time. (4) Ascites Status: Acute Plan: Ascites noted on CT scan and on physical exam. Ammonia level normal. AST/ ALT normal. Coag panel normal. Checked dedicated liver ultrasound showing hepatomegaly with ascites Patient requires outpatient follow-up for this (5) ESRD (end stage renal disease) Status: Chronic Plan: Due for hemodialysis today 11/02 Neurology was consulted at admission Hemodialysis MWF schedule, creatinine actually below baseline. - Continue cinacalcet - Continue ferric citrate - Continue hemodialysis, consult nephrology for arrangements if here past tomorrow - Avoid nephrotoxic agents - Renally dose medications (6) COPD (chronic obstructive pulmonary disease) Status: Chronic Plan: Currently stable - DuoNebs PRN - Smoking cessation counseling (7) Nonsustained ventricular tachycardia Status: Acute Plan: -She had short runs of V. tach at 4:30 AM as well as afternoon yesterday , nonsustained and asymptomatic -Was possibly related to QT prolonging psychotropic medications, decreased as above -2-D echo still pending Hospital course: Asymptomatic nonsustained V. tach noted on initial evaluation Telemetry continues to show intermittent short runs of V. tach Runs of V. tach do not seem to be clinically significant at this time Low threshold for consulting Cardiology or Critical Care if indicated by widening of QRS or QT on telemetry; would also obtain full cardiology workup if symptomatic This does not appear to be torsade which is treated with magnesium. If her EF is low she may benefit from a defibrillator (8) Hypertension Status: Chronic Plan: - Continue Losartan 25 mg q12h (9) Tobacco abuse Status: Chronic Plan: Nicotine patch Smoking cessation counseling (10) Abrasion of right knee Status: Acute Plan: Possibly related to pre-hospital fall. Basic wound care. Monitor for signs of infection. (11) Traumatic hematoma of buttock Status: Acute Plan: Likely related to knee abrasions, patient may have fallen prior to admission. No evidence of trauma this hospital stay. Will monitor (12) Nutrition, metabolism, and development symptoms Status: Acute Plan: PO fluids Slight hyponatremia, hypochloremia, monitor Renal diet (13) No contraindication to deep vein thrombosis (DVT) prophylaxis Status: Acute Plan: Heparin 5000 units tid Bilateral SCD's (Phylicia Tillman MD R1) Problem Qualifiers (1) Altered mental status: Qualified Code: R41.0 - Disorientation (2) Ascites: Qualified Code: R18.8 - Other ascites (3) COPD (chronic obstructive pulmonary disease): Qualified Code: J44.9 - Chronic obstructive pulmonary disease, unspecified COPD type (4) Hypertension: Qualified Code: I10 - Essential hypertension Phylicia Tillman MD R1 Nov 02, 2016 12:08 Alexia Borden MD Nov 03, 2016 11:51
[2016-11-02] MEDS: VITAMIN B CMPLX/VITC/FOLIC AC CAP PO SCH (13:57)
[2016-11-02] MEDS: LOSARTAN 25 MG TAB PO SCH ×2 (13:57→21:44)
[2016-11-02] MEDS: CINACALCET HYDROCHLORIDE 30 MG TAB PO SCH (13:57)
[2016-11-02] MEDS: CLOPIDOGREL 75 MG TAB PO SCH (13:57)
[2016-11-02] MEDS: ESCITALOPRAM OXALATE 10 MG TAB PO SCH (13:57)
[2016-11-02] MEDS: BENZTROPINE MESYLATE 2 MG TAB PO SCH ×2 (13:57→21:44)
[2016-11-02] MEDS: GABAPENTIN 100 MG CAP PO SCH ×2 (13:58→21:44)
--- NOTE | 2016-11-02 16:48 | HHI.PR ---
Addendum to Inpatient Note Addendum Reason: Additional Documentation Additional Information ADDENDUM Nurse called to ask that I speak with patient's Aldo Ponce. Phone number is [phone]. This name and phone number are listed as in previous notes from EMR. Per Aldo Ponce: Psychiatrist has already changed Geodon (decreased) as well as Trazodone. ( decreased). He is wondering why his is now acting so strangely given she has been on the same doses of medications for years. Baseline is that patient is able to "walk, talk, and move" without any problem. She can hold full conversations, get in car to go to dialysis. She is normal at baseline per report. She is normally "a little slow" in gait, but could walk. Now she falls with ambulation. Last time she fell was Wednesday morning on the way out of the door. Patient's plans to come to hospital tomorrow afternoon. His questions were answered at this time. Phylicia Tillman MD R1 Nov 02, 2016 16:48
--- NOTE | 2016-11-02 17:33 | HHI.NPPN ---
Subjective History of Present Illness 51-year-old female with past medical history of hypertension, bipolar disorder, chronic obstructive pulmonary disease, history of anxiety, end-stage renal disease on hemodialysis who was brought to the hospital because of lethargy and altered mental status. I was called to see the patient for the management of dialysis. The patient has been getting hemodialysis Wednesday, Wednesday and Wednesday in [place] and she has been following with Dr. Vinson. Additional Remarks Patient remain confused, not in distress, seen after HD. Review of Systems General Constitutional: Fatigue Cardiovascular Cardiac: KEITH Objective Data Data 11/01/16 11/02/16 19:00 07:00 Intake Total 240 ml Balance 240 ml Intake Oral 240 ml # Voids 0 # Bowel Movements 0 Vital Signs Date Time Temp Pulse Resp B/P Pulse Ox O2 Delivery O2 Flow Rate FiO2 11/02/16 16:00 98.5 72 18 175/68 92 11/02/16 10:39 90 Nasal Cannula 2.00 11/02/16 08:04 97.8 73 18 155/76 90 11/02/16 04:42 97.8 77 17 191/75 92 11/02/16 02:57 Nasal Cannula 2.00 11/02/16 00:46 97.6 75 18 176/69 92 11/01/16 20:40 98.3 78 18 181/76 93 -: 11/01/16 0514 11/01/16 0514 Physical Exam General Appearance: Comfortable, Anxious Eyes Eye Exam: Pupils Equal Neck Neck Exam: Neck Supple Pulmonary Resp Exam: Breath Sounds Equal, No Distress, Rhonchi, Decreased Bases Cardiology CV Exam: Regular, Normal Sinus Rhythm Gastrointestinal/Abdomen GI Exam: Soft, Non-Tender, Bowel Sounds Present Extremeties Extremities Exam: Trace Edema Neurologic Neuro Exam: Alert, Awake Assessment/Plan Assessment Summary: Hypertension, End Stage Renal Disease Problem List: (1) Anemia (2) HTN (hypertension) (3) Bipolar disorder (4) Encephalopathy (5) COPD (chronic obstructive pulmonary disease) (6) ESRD (end stage renal disease) Plan Patient has HD done and 3 liters removed. Remain confused, not oriented. BP is elevated, add Nifedipine. On Epogen for anemia. Continue HD, MWF. Problem Qualifiers (1) COPD (chronic obstructive pulmonary disease): Qualified Code: J44.9 - Chronic obstructive pulmonary disease, unspecified COPD type Jessica Colin MD Nov 02, 2016 17:33
[2016-11-02] MEDS: NIFEdipine 60 MG SUSTAINED RELEASE TAB PO SCH (18:29)
[2016-11-02] MEDS: ZIPRASIDONE HCL 60 MG CAP PO SCH (21:00)
[2016-11-02] MEDS: ATORVASTATIN 20 MG TAB PO SCH (21:44)
[2016-11-02] MEDS: traZODone HCL 50 MG TAB PO SCH (21:47)
[2016-11-03] VITALS (7 sets, daily range): BP systolic 126–140; BP diastolic 52–100; PULSE 68–77; RESP 16–20; TEMP 96–97.7; O2SAT 92–97
[2016-11-03] MEDS: HEPARIN SODIUM - SQ 10,000 UNITS/ML VIAL SQ SCH ×3 (01:01→15:35)
[2016-11-03 07:03] LABS: AUTOMATED NEUTROPHIL # 2.8 TH/MM3 (1.8-7.7); BASOPHIL % 0.7 % (0.0-2.0); EOSINOPHIL % 0.9 % (0.0-4.0); HEMATOCRIT 27.8 % (35.0-46.0); HEMO FLAGS DIFF FINAL; LYMPH % 21.6 % (9.0-44.0); LYMPHOCYTE # 0.9 TH/MM3 (1.0-4.8); MEAN CELL VOLUME 90.5 FL (80.0-100.0); MEAN CORPUSCULAR HEMOGLOBIN 29.2 PG (27.0-34.0); MEAN CORPUSCULAR HGB CONC 32.3 % (32.0-36.0); MONO % 12.7 % (0.0-8.0); NEUT % 64.1 % (16.0-70.0); PLATELET COUNT 132 TH/MM3 (150-450); RED BLOOD COUNT 3.07 MIL/MM3 (4.00-5.30); RED CELL DISTRIBUTION WIDTH 19.3 % (11.6-17.2); WHITE BLOOD COUNT 4.3 TH/MM3 (4.0-11.0)
[2016-11-03 07:33] LABS: BICARBONATE 30.9 MEQ/L (21.0-32.0); MAGNESIUM 2.1 MG/DL (1.5-2.5); POTASSIUM 3.9 MEQ/L (3.5-5.1)
--- NOTE | 2016-11-03 09:30 | EC ---
Study Study Date:11/02/2016 STUDY CONCLUSIONS SUMMARY - Left ventricle: The cavity size was normal. Wall thickness was normal. Systolic function was normal. The estimated ejection fraction was 60%. Wall motion was normal; there were no regional wall motion abnormalities. - Aortic valve: Moderate to severe regurgitation. - Tricuspid valve: Mild regurgitation. If LV function is below 40, please consider prescribing an ACEI or ARB or document rationale for non-use. PROCEDURE DATA STUDY STATUS: Elective. Procedure: Transthoracic echocardiography. Image quality was good. Scanning was performed from the parasternal, apical, and subcostal acoustic windows. Study completion: The patient tolerated the procedure well. Transthoracic echocardiography. M-mode, complete 2D, complete spectral Doppler, and color Doppler. Height: Height: 61in. Weight: Weight: 157.7lb. Body mass index: BMI: 29.9kg/m^2. Body surface area: BSA: 1.71m^2. Patient status: Inpatient. CARDIAC ANATOMY LEFT VENTRICLE: The cavity size was normal. Wall thickness was normal. Systolic function was normal. The estimated ejection fraction was 60%. Wall motion was normal; there were no regional wall motion abnormalities. AORTIC VALVE: Trileaflet; moderately thickened, moderately calcified leaflets. Doppler: Transvalvular velocity was within the normal range. There was no stenosis. Moderate to severe regurgitation. Peak gradient: 20mm Hg (S). AORTA: Aortic root: The aortic root was normal in size. MITRAL VALVE: Structurally normal valve. Doppler: Transvalvular velocity was within the normal range. There was no evidence for stenosis. No regurgitation. Valve area by pressure half-time: 2.89cm^2. Indexed valve area by pressure half-time: 1.69cm^2/m^2. Peak gradient: 7mm Hg (D). LEFT ATRIUM: The atrium was normal in size. RIGHT VENTRICLE: The cavity size was normal. Wall thickness was normal. PULMONIC VALVE: Doppler: Transvalvular velocity was within the normal range. There was no evidence for stenosis. No regurgitation. TRICUSPID VALVE: Structurally normal valve. Doppler: Transvalvular velocity was within the normal range. Mild regurgitation. Peak gradient: 51mm Hg (D). PULMONARY ARTERY: The main pulmonary artery was normal-sized. Systolic pressure was within the normal range. RIGHT ATRIUM: The atrium was normal in size. PERICARDIUM: There was no pericardial effusion. SYSTEMIC VEINS: Inferior vena cava: The vessel was normal in size. Patient weight: 157.7lb _Ejection fraction:_ 65-75% _Fractional shortening:_ 32% up to 5Kg 5-11.5Kg 11.6-22.9Kg 23-45Kg 45-57Kg Aortic Root 7-13 <17 13-22 17-27 17-27 LA diam 6-13 <23 24-38 33-47 37-40 RVID 10-17 7-15 7-15 7-18 8-17 LVIDd 12-22 <32 24-38 33-47 37-40 LVPW 2-4 3-6 5-7 6-8 7-8 IVS 2-4 3-6 5-7 6-8 7-8 BASIC MEASUREMENTS ADULT NORMAL Left ventricle LV internal dimension, ED, chordal 45.3 mm 43-52 level, PLAX LV internal dimension, ES, chordal 32.4 mm 23-38 level, PLAX Fractional shortening, chordal level, *28 % >29 PLAX LV posterior wall thickness, ED 10.8 mm IVS/LVPW ratio, ED 1.08 <1.3 Ventricular septum Septal thickness, ED 11.7 mm Aortic valve Leaflet separation 15 mm 15-26 Left atrium Anterior-posterior dimension 39 mm Anterior-posterior dimension index *2.28 cm/m^2 <2.2 Right ventricle RV internal dimension, ED, PLAX 25.4 mm 19-38 BASIC MEASUREMENTS ADULT NORMAL Aortic valve Leaflet separation 15 mm 15-26 Aorta Root diameter, ED 23 mm 20-37 Left atrium Anterior-posterior dimension, ES 39 mm 19-40 Anterior-posterior dimension index, ES *2.28 cm/m^2 <2.2 LA/aortic root ratio 1.7 DOPPLER MEASUREMENTS ADULT NORMAL Aortic valve Peak velocity, S 222 cm/s Peak gradient, S 20 mm Hg Regurgitant velocity, ED 508 cm/s Regurgitant deceleration 7020 cm/s^2 Regurgitant pressure half-time 212 ms Regurgitant gradient, ED 103 mm Hg Mitral valve Peak E-wave velocity 131 cm/s Peak A-wave velocity 58.2 cm/s Pressure half-time 76 ms Peak gradient, D 7 mm Hg Peak E/A ratio 2.3 Valve area, pressure half-time 2.89 cm^2 Valve area index, pressure half-time 1.69 cm^2/m^2 Tricuspid valve Peak gradient, D 51 mm Hg Maximal inflow velocity 358 cm/s Pulmonic valve Peak velocity, S 115 cm/s LEGEND: Mean values are shown as u=mean value. Asterisk (*) [place] values outside specified normal range. Prepared and signed by Amina Juarez [id number]
[2016-11-03] MEDS: CLOPIDOGREL 75 MG TAB PO SCH (09:34)
[2016-11-03] MEDS: NIFEdipine 60 MG SUSTAINED RELEASE TAB PO SCH (09:34)
[2016-11-03] MEDS: GABAPENTIN 100 MG CAP PO SCH (09:34)
[2016-11-03] MEDS: ESCITALOPRAM OXALATE 10 MG TAB PO SCH (09:34)
[2016-11-03] MEDS: CINACALCET HYDROCHLORIDE 30 MG TAB PO SCH (09:34)
[2016-11-03] MEDS: LOSARTAN 25 MG TAB PO SCH (09:34)
[2016-11-03] MEDS: BENZTROPINE MESYLATE 2 MG TAB PO SCH (09:34)
[2016-11-03] MEDS: VITAMIN B CMPLX/VITC/FOLIC AC CAP PO SCH (09:34)
[2016-11-03] MEDS: SODIUM CHLORIDE 0.9% FLUSH 10 ML FLUSH IV FLUSH SCH (09:35)
--- NOTE | 2016-11-03 10:18 | HHI.FPPN ---
Subjective Remarks Patient was seen and examined this morning. She had no acute complaints today. She any pain or difficulty breathing today. She states that she wants to go home. (Phylicia Tillman MD R1) Objective Vitals Vital Signs Date Time Temp Pulse Resp B/P Pulse Ox O2 Delivery O2 Flow Rate FiO2 11/03/16 09:27 94 Nasal Cannula 2.00 11/03/16 08:22 97.2 76 16 138/52 94 11/03/16 04:20 96.6 77 18 131/53 92 11/03/16 01:10 96.0 68 17 130/54 95 11/02/16 21:44 Nasal Cannula 2.00 11/02/16 21:00 97.9 76 17 153/63 92 11/02/16 18:05 92 Nasal Cannula 2.00 11/02/16 16:00 98.5 72 18 175/68 92 11/02/16 10:39 90 Nasal Cannula 2.00 I/O 11/02/16 11/02/16 11/02/16 11/03/16 11/03/16 11/03/16 07:00 15:00 23:00 07:00 15:00 23:00 Intake Total 120 ml 240 ml 240 ml 120 ml Output Total 3000 ml Balance 120 ml -2760 ml 240 ml 120 ml Intake Oral 120 ml 240 ml 240 ml 120 ml Output Hemodialysis 3000 ml # Voids 0 1 0 # Bowel Movements 0 1 0 (Phylicia Tillman MD R1) Result Diagram: 11/03/16 0615 11/03/16 0615 Imaging Last Impressions Liver Ultrasound 11/01/16 0000 Signed Impressions: Service Date/Time: Tuesday, November 01, 2016 08:35 - CONCLUSION: Hepatomegaly with ascites. Augustin Atkinson MD Chest X-Ray 10/31/16 1019 Signed Impressions: Service Date/Time: Monday, October 31, 2016 10:58 - CONCLUSION: 1. Diffuse increased interstitial markings with borderline cardiomegaly likely representing edema and possible CHF. 2. Mild to moderate right pleural effusion. Augustin Atkinson MD Head Magnetic Resonance Angiography 10/31/16 0000 Signed Impressions: Service Date/Time: Monday, October 31, 2016 17:11 - CONCLUSION: Negative MRA of the [place]. Frandy Arciniega MD Head CT 10/31/16 0000 Signed Impressions: Service Date/Time: Monday, October 31, 2016 12:02 - CONCLUSION: 1. No acute abnormality seen. 2. 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 Augustin Atkinson MD Brain MRI 10/31/16 0000 Signed Impressions: Service Date/Time: Monday, October 31, 2016 17:11 - CONCLUSION: Negative MRI of the brain without contrast Frandy Arciniega MD Abdomen/Pelvis CT 10/31/16 0000 Signed Impressions: Service Date/Time: Monday, October 31, 2016 12:06 - CONCLUSION: 1. 8 cm hematoma in the subcutaneous tissues at the superomedial left gluteal region. 2. Suspected anasarca with edema seen throughout the subcutaneous tissues. 3. Moderate right pleural effusion with accompanying atelectasis or consolidation at the right lower lobe. 4. Ascites seen around the liver, spleen and pelvis. The amount of ascites is mild to moderate. It appears too small to drain. 5. Venous stents in place in the pelvis. 6. Chronic atrophy of the kidneys bilaterally. Augustin Atkinson MD Objective Remarks GENERAL: Patient is a well-nourished female who is lying in bed in no apparent distress. She is easily woken up and is pleasant. SKIN: Mild abrasion on abdomen, no scalp abrasions, tanned skin. Healing hematoma over the left buttocks. The right knee has a clean and dry bandage on it. HEENT: Normocephalic, no nasal discharge, normal pharynx, no conjunctivitis, no scleral icterus NECK: Trachea midline. No JVD or lymphadenopathy. Supple, nontender, no meningeal signs. CARDIOVASCULAR: Heart sounds are impossible to hear given fistula murmur RESPIRATORY: Clear to auscultation. Breath sounds equal bilaterally. No wheezes , rales, or rhonchi. GASTROINTESTINAL: Abdomen soft, non-tender, nondistended. Ascites present. MUSCULOSKELETAL: Extremities without clubbing, cyanosis, or edema. No joint tenderness, effusion, or edema noted. No calf tenderness. Negative Homans sign bilaterally. NEUROLOGICAL: Awake and alert. Does not appear to be oriented. No obvious motor or strength deficits but difficult to assess given patient confusion PSYCH: Not appearing to respond to internal stimuli. She is not agitated and answers questions appropriately. She states "I want to go home" and says her is coming today. Medications and IVs Inpatient Medications Acetaminophen (Tylenol) 650 mg UNSCH PRN PO for headach, pain, temp > 101F; Start 11/01/16 at 13:00 Acetaminophen/ Hydrocodone Bitart ([place] 7.5-325 Mg) 1 tab Q4H PRN PO PAIN SCALE 6 TO 10; Start 10/31/16 at 16:15 Albumin Human (Albumin 25% Inj) 25 gm UNSCH PRN IV WITH DIALYSIS; Start at 13:00 Albuterol Sulfate (Albuterol Neb) 2.5 mg Q2HR NEB PRN NEB wheezing; Start 10/31 at 16:15 Albuterol/ Ipratropium (Duoneb Neb) 1 ampule Q4HR NEB PRN NEB wheezing; Start 10/31/16 at 16:15 Atorvastatin Calcium (Lipitor) 20 mg HS PO Last administered on 11/02/16 21:44 ; Start 10/31/16 at 21:00 Benztropine Mesylate (Cogentin) 2 mg Q12HR PO Last administered on 11/03/16 09 :34; Start 10/31/16 at 21:00 Cinacalcet (Sensipar) 60 mg DAILY PO Last administered on 11/03/16 09:34; Start 11/01/16 at 09:00 Clonidine (Catapres) 0.1 mg UNSCH PRN PO for BP > 180/100 X 2 readings Last administered on 11/02/16 04:25; Start 11/01/16 at 13:00 Clopidogrel Bisulfate (Plavix) 75 mg DAILY PO Last administered on 11/03/16 09 :34; Start 11/01/16 at 09:00 Diphenhydramine HCl (Benadryl) 25 mg UNSCH PRN PO for hives/itching/anaphylaxis ; Start 11/01/16 at 13:00 Epoetin Mauri (Epogen Inj) 10,000 units UNSCH PRN IV WITH DIALYSIS Last administered on 11/02/16 12:03; Start 11/01/16 at 13:00 Escitalopram Oxalate (Lexapro) 10 mg DAILY PO Last administered on 11/03/16 09 :34; Start 11/01/16 at 09:00 Gabapentin (Neurontin) 200 mg BID PO Last administered on 11/03/16 09:34; Start 10/31/16 at 21:00 Gelatin (Gelfoam 12 Mm/7 Mm Top) 1 foam UNSCH PRN TOP SEE LABEL COMMENTS Last administered on 11/02/16 12:03; Start 11/01/16 at 13:00 Gentamicin Sulfate (Gentamicin (Dialysis) Inj) 20 mg UNSCH PRN IV WITH DIALYSIS ; Start 11/01/16 at 13:00 Heparin Sodium (Porcine) (Heparin Inj) UNSCH PRN .XX WITH DIALYSIS; Start at 13:00 Heparin Sodium (Porcine) 8000 units 8,000 units UNSCH PRN IVF WITH DIALYSIS; Start 11/01/16 at 13:00 Losartan Potassium (Cozaar) 25 mg Q12HR PO Last administered on 11/03/16 09:34 ; Start 10/31/16 at 21:00 Mannitol (Mannitol Inj) 12.5 gm UNSCH PRN IV WITH DIALYSIS; Start 11/01/16 at 13:00 Miscellaneous (Pill Splitter) 1 ea UNSCH PRN OTHER SEE LABEL COMMENTS; Start at 11:15 Miscellaneous Information 1 HS T-DERMAL ; Start 10/31/16 at 21:00; Stop at 21:00; Status DC Naloxone HCl (Narcan Inj) 0.4 mg UNSCH PRN IV SEE LABEL COMMENTS; Start at 15:30 Nicotine (Habitrol 14 Mg Patch.24 Hr) 1 patch DAILY T-DERMAL ; Start 10/31/16 at 16:15; Stop 10/31/16 at 16:28; Status DC Nifedipine (Procardia Xl) 60 mg DAILY PO Last administered on 11/03/16 09:34; Start 11/02/16 at 18:00 Nitroglycerin (Nitrostat Sl) 0.4 mg UNSCH PRN SL CHEST PAIN; Start 11/01/16 at 13:00 Ondansetron HCl (Zofran Inj) 4 mg UNSCH PRN IV WITH DIALYSIS; Start 11/01/16 at 13:00 Patient Own Medication PT OWN MED: RAVEN... BID PO ; Start 10/31/16 at 21:00; Status Hold Senna/Docusate Sodium (Katalina-Colace) 2 tab BID PRN PO constipation; Start at 15:30 Sodium Chloride (NS 1000 ml Inj) 1,000 ml @ 0 mls/hr Q0M PRN IV WITH DIALYSIS; Start 11/01/16 at 12:57 Sodium Chloride (NS Flush) 5 ml UNSCH PRN IV FLUSH WITH DIALYSIS; Start at 13:00 Trazodone HCl (Desyrel) 75 mg HS PO Last administered on 11/02/16 21:47; Start 11/02/16 at 21:00 Vitamin B Complex/ Vit C/Folic Acid (Nephrocaps) 1 cap DAILY PO Last administered on 11/03/16 09:34; Start 11/01/16 at 09:00 Ziprasidone (Geodon) 60 mg HS PO Last administered on 11/02/16 21:00; Start at 21:00 (Phylicia Tillman MD R1) Urinary Catheter: No (Phylicia Tillman MD R1) Vascular Central Line Catheter: No (Phylicia Tillman MD R1) A/P Assessment and Plan 51 year old female with a history of ESRD and bipolar depression presented with lethargy and altered mental status, which has now improved significantly. She also presented with QT prolongation likely secondary to psychotropic medications which have been reduced in dosing. Discharge Planning Patient is medically clear for discharge at this time. Psychiatry consulted for assistance with medical management, but patient may be able to follow-up as outpatient. We will plan for possible discharge today pending discussion with this afternoon as he stated yesterday he was coming to the hospital and was taking care of her at home She had home health PT after SNF discharge, will reorder if indicated PT evaluation was also ordered today to assist with recommendations (Phylicia Tillman MD R1) Attending Attestation Patient seen and examined. Case reviewed and discussed with the resident team. Agree with plan of care as discussed with me and documented in the resident note. appreciate Psychiatry consult. Geodon is the most likely to give QT prolongation and latuda has fewer cardiac effects. Agree with PT eval as she seems to be improving day by day. If her feels shs is at baseline and can care for her, she very much wants to go home. (Alexia Borden MD) Problem List: (1) Altered mental status Status: Acute Plan: Sedation has improved significantly, patient is medically clear for discharge. Psychiatry was consulted, will appreciate recommendations regarding medication management for psychiatric conditions which likely contributed to AMS. Hospital course: No leukocytosis, no fevers. Urine negative for UTI. Chest x-ray showing pulmonary edema and cardiomegaly, possible CHF picture. Has history of cocaine and THC use per records. Head CT negative for acute bleed. Abdomen/pelvis CT scan negative for acute process, but does show multiple chronic processes including ascites. Ammonia level normal. Slightly hyponatremic/hypochloremic. Creatinine elevated 3.88 but well below her baseline, and she receives hemodialysis MWF. Glucose 88 on admission per reports she was difficult to rouse and her gave her too much trazodone which probably contributed if not being the sole cause as she has shown steady improvement with decreased med doses here in the hospital UDS on admission was negative Had MRI/MRA, rule out cerebral infarction and they were normal Has cirrhosis and ascites, however, ammonia level was normal (2) Prolonged Q-T interval on ECG Status: Acute Plan: Likely related to psychotropic medications. She was on high doses which had been titrated down this hospital stay. - Continue to monitor on telemetry and repeat EKG if indicated by new symptoms. - Avoid QT prolonging agents. or at least decrease them as she could have serious problems if stopped with her history of Psychiatric admissions Hospital course: QTc 474 on initial EKG. Potassium normal. Calcium normal. On antipsychotics. Repeat EKG 11/01 showing QTc was 428 Magnesium within normal limits Psychotropic medications adjusted as below, appreciate psychiatry recs (3) Bipolar 1 disorder Status: Chronic Plan: Trazodone to 75mg hs. Ziprasidone 60 mg once nightly Lexapro home dose 10 mg daily Gabapentin home dose 200 mg twice a day Benztropine home dose 2 mg twice a day Consulted Psychiatry to help in medication management and choosing less QT prolonging agents Hospital Course: Does not appear to be harm to self or others On review of EMR, patient was in [facility] inpatient psych unit in June 2016. At that time her baseline was a and O 3 and she did endorse auditory hallucination at that time Psychotropic medication regimen as follows reported in June 2016 medical records: Trazodone 200 mg nightly Lexapro 10 mg daily Ziprasidone 80 mg twice a day Gabapentin 200 mg twice a day Benztropine 2 mg twice a day Ativan 1 mg every 4hr PRN anxiety Hydroxyzine 10 mg twice a day She presented in September 2016 status post fall. At that time she received CT head and had hyponatremia. Home psychotropic medications were reportedly resumed at that time. (4) Ascites Status: Acute Plan: Ascites noted on CT scan and on physical exam. Ammonia level normal. AST/ ALT normal. Coag panel normal. Checked dedicated liver ultrasound showing hepatomegaly with ascites Patient requires outpatient follow-up for this (5) ESRD (end stage renal disease) Status: Chronic Plan: Due for hemodialysis Saturday 11/04 Nephrology was consulted at admission Hemodialysis MWF schedule, creatinine actually below baseline. - Continue cinacalcet - Continue ferric citrate - Continue hemodialysis, consult nephrology for arrangements if here past tomorrow - Avoid nephrotoxic agents - Renally dose medications (6) COPD (chronic obstructive pulmonary disease) Status: Chronic Plan: Currently stable - DuoNebs PRN - Smoking cessation counseling (7) Nonsustained ventricular tachycardia Status: Acute Plan: -She had a short run of V. tach at approx 9am today as well as afternoon yesterday, nonsustained and asymptomatic. These occur daily but lasts seconds -Was possibly related to QT prolonging psychotropic medications, decreased as above -2-D echo showed EF 60%, moderate to severe AR, mild TR -Patient likely to benefit from outpatient cardiology follow-up Hospital course: Asymptomatic nonsustained V. tach noted on initial evaluation Telemetry continues to show intermittent short runs of V. tach Runs of V. tach do not seem to be clinically significant at this time Low threshold for consulting Cardiology or Critical Care if indicated by widening of QRS or QT on telemetry; would also obtain full cardiology workup if symptomatic This does not appear to be torsade which is treated with magnesium. If her EF is low she may benefit from a defibrillator (8) Hypertension Status: Chronic Plan: - Continue Losartan 25 mg q12h (9) Tobacco abuse Status: Chronic Plan: Nicotine patch Smoking cessation counseling (10) Abrasion of right knee Status: Acute Plan: Possibly related to pre-hospital fall. Basic wound care. Monitor for signs of infection. (11) Traumatic hematoma of buttock Status: Acute Plan: Likely related to knee abrasions, patient may have fallen prior to admission. No evidence of trauma this hospital stay. Will monitor (12) Nutrition, metabolism, and development symptoms Status: Acute Plan: PO fluids Slight hyponatremia, hypochloremia, monitor Renal diet (13) No contraindication to deep vein thrombosis (DVT) prophylaxis Status: Acute Plan: Heparin 5000 units tid Bilateral SCD's (Phylicia Tillman MD R1) Problem Qualifiers (1) Altered mental status: Qualified Code: R41.0 - Disorientation (2) Ascites: Qualified Code: R18.8 - Other ascites (3) COPD (chronic obstructive pulmonary disease): Qualified Code: J44.9 - Chronic obstructive pulmonary disease, unspecified COPD type (4) Hypertension: Qualified Code: I10 - Essential hypertension Phylicia Tillman MD R1 Nov 03, 2016 10:17 Alexia Borden MD Nov 03, 2016 11:59
--- NOTE | 2016-11-03 10:41 | PD.CONS ---
Provisional Diagnosis Admission Date Oct 31, 2016 at 14:35 [place]. Delirium History of Present Illness Service Psychiatry Consult Requested By Primary Care Physician Ashley Wilhelm MD HPI seen by this physician at request of Dr. Tillman. Apparently there is a concern for her QT interval. Patient has been on Geodon. Geodon discontinued by this physician. Patient placed on Latuda 40 mg at dinnertime. Latuda has even safer side effect profile including cardiac conduction side effects and metabolic side effects. This physician red note that patient's feels she is not baseline. This physician feels this is more likely a delirium than underlying major mental illness. Review of Systems ROS Limitations: Clinical Condition Past Family Social History Coded Allergies: No Known Allergies (Unverified , 10/31/16) Active Scripts Losartan (Cozaar)25 Mg Tab25 Mg PO Q12HR #60 TAB Ref 0 Prov:Marco Antonio Tracy MD 09/15/16 Hydrocodone-Acetaminophen 7.5-325 mg Tab1 Tab PO Q4H PRN (PAIN SCALE 6 TO 10) # 30 TAB Ref 0 Prov:Marco Antonio Tracy MD 09/15/16 Benztropine 2 Mg Tab2 Mg PO Q12HR 10 Days Ref 1 Prov:Cristobal Thomas MD 06/17/16 Reported Medications Ferric Citrate (Auryxia)210 Mg Tab Tab PO TID 10/31/16 Ferric Citrate (Auryxia)210 Mg [id number] Mg PO 2-3 TIMES A DAY Take with meals 2-3 times a day 10/05/16 Trazodone 100 Mg Jhi441 Mg PO HS #30 TAB Ref 0 10/05/16 Atorvastatin 20 Mg Tab20 Mg PO HS #30 TAB Ref 0 10/05/16 Gabapentin (Neurontin)100 Mg Cee525 Mg PO BID #60 CAP Ref 0 10/05/16 Ziprasidone (Geodon)80 Mg Cap80 Mg PO BID #60 CAP Ref 0 10/05/16 Clopidogrel (Plavix)75 Mg Tab75 Mg PO DAILY #30 TAB Ref 0 10/05/16 Cinacalcet (Sensipar)60 Mg Tab60 Mg PO DAILY #30 TAB Ref 0 With Dinner 06/10/16 Metoclopramide (Reglan)5 Mg Tab5 Mg PO TIDAC Ref 0 06/10/16 B-Complex W/ C & Folic Acid (Nephrocaps)1 Cap1 Cap PO DAILY #30 CAP Ref 0 If on dialysis, take after treatment. 06/10/16 Escitalopram (Lexapro)10 Mg Tab10 Mg PO DAILY #30 TAB Ref 0 06/10/16 Current Medications Medications (Trade) Dose Ordered Sig/Lora Route Start Time Stop Time Status Last Admin (NS Flush) 2 ml UNSCH PRN IV FLUSH 10/31/16 15:30 (NS Flush) 2 ml BID IV FLUSH 10/31/16 21:00 11/03/16 09:35 (Heparin Inj) 5,000 units Q8H SQ 10/31/16 16:00 11/03/16 09:35 (Narcan Inj) 0.4 mg UNSCH PRN IV 10/31/16 15:30 (Katalina-Colace) 2 tab BID PRN PO 10/31/16 15:30 (Lipitor) 20 mg HS PO 10/31/16 21:00 11/02/16 21:44 (Nephrocaps) 1 cap DAILY PO 11/01/16 09:00 11/03/16 09:34 (Cogentin) 2 mg Q12HR PO 10/31/16 21:00 11/03/16 09:34 (Plavix) 75 mg DAILY PO 11/01/16 09:00 11/03/16 09:34 (Lexapro) 10 mg DAILY PO 11/01/16 09:00 11/03/16 09:34 (Neurontin) 200 mg BID PO 10/31/16 21:00 11/03/16 09:34 ([place] 7.5-325 Mg) 1 tab Q4H PRN PO 10/31/16 16:15 (Cozaar) 25 mg Q12HR PO 10/31/16 21:00 11/03/16 09:34 (Sensipar) 60 mg DAILY PO 11/01/16 09:00 11/03/16 09:34 Patient Own Medication PT OWN MED: RAVEN... BID PO 10/31/16 21:00 Hold Ziprasidone 60 mg 60 mg HS PO 11/01/16 21:00 11/02/16 21:00 (NS 1000 ml Inj) 1,000 ml @ 0 mls/hr Q0M PRN IV 11/01/16 12:57 Heparin Sodium (Porcine) 8000 units 8,000 units UNSCH PRN IVF 11/01/16 13:00 Sodium Chloride 1,000 ml @ 200 mls/hr Q5H PRN IV 11/01/16 12:57 (NS 1000 ml Inj) 1,000 ml @ 0 mls/hr Q0M PRN IV 11/01/16 12:57 (Mannitol Inj) 12.5 gm UNSCH PRN IV 11/01/16 13:00 (Albumin 25% Inj) 25 gm UNSCH PRN IV 11/01/16 13:00 (NS Flush) 5 ml UNSCH PRN IV FLUSH 11/01/16 13:00 (Heparin Inj) UNSCH PRN .XX 11/01/16 13:00 (Gentamicin (Dialysis) Inj) 20 mg UNSCH PRN IV 11/01/16 13:00 (Zofran Inj) 4 mg UNSCH PRN IV 11/01/16 13:00 (Tylenol) 650 mg UNSCH PRN PO 11/01/16 13:00 (Benadryl) 25 mg UNSCH PRN PO 11/01/16 13:00 (Nitrostat Sl) 0.4 mg UNSCH PRN SL 11/01/16 13:00 (Catapres) 0.1 mg UNSCH PRN PO 11/01/16 13:00 11/02/16 04:25 (Epogen Inj) 10,000 units UNSCH PRN IV 11/01/16 13:00 11/02/16 12:03 (Gelfoam 12 Mm/7 Mm Top) 1 foam UNSCH PRN TOP 11/01/16 13:00 11/02/16 12:03 (Desyrel) 75 mg HS PO 11/02/16 21:00 11/02/16 21:47 (Pill Splitter) 1 ea UNSCH PRN OTHER 11/02/16 11:15 (Procardia Xl) 60 mg DAILY PO 11/02/16 18:00 11/03/16 09:34 Family History Denied for mental illness Social History No alcohol or drug use. Patient's Strengths (min. 2) Verbal and resilient. Physical Exam Vital Signs Vital Signs Date Time Temp Pulse Resp B/P Pulse Ox O2 Delivery O2 Flow Rate FiO2 11/03/16 09:27 94 Nasal Cannula 2.00 11/03/16 08:22 97.2 76 16 138/52 I/O 11/02/16 11/02/16 11/03/16 08:00 16:00 00:00 Intake Total 120 ml 240 ml 240 ml Output Total 3000 ml Balance 120 ml -2760 ml 240 ml Mental Status Examination Speech: Hesitant Orientation: Person, Place Memory: Impaired (describe) Thought Process: Goal Directed, Other Thought Content: Bizarre thinking Hallucination Type: Visual Attention and Concentration: Easily Distracted Suicidal Ideation: No Previous Suicide Attempts: No Homicidal Ideation: No Previous Homicide Attempts: No Insight: Fair Judgment: Unrealistic Affect: Anxious Affect if Inappropriate: Blunt Mood: Appropriate Motor Activity: Normal gait Assessment & Plan Problem List: (1) Delirium due to general medical condition ICD Code: F05 Assessment & Plan Estimated LOS: 3 days recommend change of Geodon to Latuda. This is to protect patient against side effects of Geodon. This physician still feels the patient' s underlying issue is organic and not psychiatric. Rey Kaiser MD Nov 03, 2016 10:41
--- NOTE | 2016-11-03 10:53 | HHI.NPPN ---
Subjective History of Present Illness 51-year-old female with past medical history of hypertension, bipolar disorder, chronic obstructive pulmonary disease, history of anxiety, end-stage renal disease on hemodialysis who was brought to the hospital because of lethargy and altered mental status. I was called to see the patient for the management of dialysis. The patient has been getting hemodialysis Wednesday, Wednesday and Wednesday in [place] and she has been following with Dr. Vinson. Additional Remarks Patient remain confused, and also lethargic, open eyes on command, not eating well. Review of Systems General Constitutional: Fatigue Cardiovascular Cardiac: KEITH Objective Data Data 11/02/16 11/03/16 19:00 07:00 Intake Total 240 ml 360 ml Output Total 3000 ml Balance -2760 ml 360 ml Intake Oral 240 ml 360 ml Output Hemodialysis 3000 ml # Voids 1 # Bowel Movements 1 Vital Signs Date Time Temp Pulse Resp B/P Pulse Ox O2 Delivery O2 Flow Rate FiO2 11/03/16 09:27 94 Nasal Cannula 2.00 11/03/16 08:22 97.2 76 16 138/52 94 11/03/16 04:20 96.6 77 18 131/53 92 11/03/16 01:10 96.0 68 17 130/54 95 11/02/16 21:44 Nasal Cannula 2.00 11/02/16 21:00 97.9 76 17 153/63 92 11/02/16 18:05 92 Nasal Cannula 2.00 11/02/16 16:00 98.5 72 18 175/68 92 -: 11/03/16 0615 11/03/16 0615 Physical Exam General Appearance: Comfortable, Anxious Eyes Eye Exam: Pupils Equal Neck Neck Exam: Neck Supple Pulmonary Resp Exam: Breath Sounds Equal, No Distress, Rhonchi, Decreased Bases Cardiology CV Exam: Regular, Normal Sinus Rhythm Gastrointestinal/Abdomen GI Exam: Soft, Non-Tender, Bowel Sounds Present Extremeties Extremities Exam: Trace Edema Neurologic Neuro Exam: Obtunded Assessment/Plan Assessment Summary: Hypertension, End Stage Renal Disease Problem List: (1) Anemia (2) HTN (hypertension) (3) Bipolar disorder (4) Encephalopathy (5) COPD (chronic obstructive pulmonary disease) (6) ESRD (end stage renal disease) Plan Patient has HD done yesterday. Remain confused and now also lethargic. BP is better with Nifedipine. On Epogen for anemia. Continue HD, MWF. Psych. consulted. Problem Qualifiers (1) COPD (chronic obstructive pulmonary disease): Qualified Code: J44.9 - Chronic obstructive pulmonary disease, unspecified COPD type Jessica Colin MD Nov 03, 2016 10:53
[2016-11-03] MEDS ORDERED: LURASIDONE 40 MG TAB PO SCH (18:00)
[2016-11-04] MEDS: LOSARTAN 25 MG TAB PO SCH ×2 (00:03→08:19)
[2016-11-04] MEDS: ATORVASTATIN 20 MG TAB PO SCH (00:03)
[2016-11-04] MEDS: traZODone HCL 50 MG TAB PO SCH (00:04)
[2016-11-04] MEDS: BENZTROPINE MESYLATE 2 MG TAB PO SCH ×2 (00:04→08:19)
[2016-11-04] MEDS: GABAPENTIN 100 MG CAP PO SCH ×2 (00:04→08:20)
[2016-11-04] MEDS: SODIUM CHLORIDE 0.9% FLUSH 10 ML FLUSH IV FLUSH SCH ×2 (00:05→08:24)
[2016-11-04] MEDS: HEPARIN SODIUM - SQ 10,000 UNITS/ML VIAL SQ SCH ×2 (00:05→08:20)
[2016-11-04 01:15] VITALS: BP 131/60; PULSE 73; RESP 20; TEMP 97.5; O2SAT 93
[2016-11-04 05:49] VITALS: BP 119/72; PULSE 74; RESP 20; TEMP 97.3; O2SAT 93
[2016-11-04] MEDS: CINACALCET HYDROCHLORIDE 30 MG TAB PO SCH (08:19)
[2016-11-04] MEDS: CLOPIDOGREL 75 MG TAB PO SCH (08:19)
[2016-11-04] MEDS: NIFEdipine 60 MG SUSTAINED RELEASE TAB PO SCH (08:19)
[2016-11-04] MEDS: ESCITALOPRAM OXALATE 10 MG TAB PO SCH (08:19)
[2016-11-04] MEDS: VITAMIN B CMPLX/VITC/FOLIC AC CAP PO SCH (08:19)
--- NOTE | 2016-11-04 08:48 | HHI.FPPN ---
Subjective Remarks She was seen and examined this morning. She has no complaints. She states that she wants to go home. She has no pain. She has no voiding difficulties. She denies fever, chills, headaches, shortness of breath, chest pain, nausea, vomiting, voiding difficulties. (Phylicia Tillman MD R1) Objective Vitals Vital Signs Date Time Temp Pulse Resp B/P Pulse Ox O2 Delivery O2 Flow Rate FiO2 11/04/16 08:33 Room Air 11/04/16 05:49 97.3 74 20 119/72 93 11/04/16 01:15 97.5 73 20 131/60 93 11/03/16 20:00 Room Air 11/03/16 20:00 97.7 74 20 126/58 97 11/03/16 18:40 96.7 76 20 137/100 92 11/03/16 12:22 97.4 70 18 140/60 95 11/03/16 09:27 94 Nasal Cannula 2.00 I/O 11/03/16 11/03/16 11/03/16 11/04/16 11/04/16 11/04/16 07:00 15:00 23:00 07:00 15:00 23:00 Intake Total 120 ml Balance 120 ml Intake Oral 120 ml # Voids 0 0 # Bowel Movements 0 (Phylicia Tillman MD R1) Result Diagram: 11/03/16 0615 11/03/16 0615 Imaging Last Impressions Liver Ultrasound 11/01/16 0000 Signed Impressions: Service Date/Time: Tuesday, November 01, 2016 08:35 - CONCLUSION: Hepatomegaly with ascites. Augustin Atkinson MD Chest X-Ray 10/31/16 1019 Signed Impressions: Service Date/Time: Monday, October 31, 2016 10:58 - CONCLUSION: 1. Diffuse increased interstitial markings with borderline cardiomegaly likely representing edema and possible CHF. 2. Mild to moderate right pleural effusion. Augustin Atkinson MD Head Magnetic Resonance Angiography 10/31/16 0000 Signed Impressions: Service Date/Time: Monday, October 31, 2016 17:11 - CONCLUSION: Negative MRA of the havasupai of [place]. Frandy Arciniega MD Head CT 10/31/16 0000 Signed Impressions: Service Date/Time: Monday, October 31, 2016 12:02 - CONCLUSION: 1. No acute abnormality seen. 2. 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 Augustin Atkinson MD Brain MRI 10/31/16 0000 Signed Impressions: Service Date/Time: Monday, October 31, 2016 17:11 - CONCLUSION: Negative MRI of the brain without contrast Frandy Arciniega MD Abdomen/Pelvis CT 10/31/16 0000 Signed Impressions: Service Date/Time: Monday, October 31, 2016 12:06 - CONCLUSION: 1. 8 cm hematoma in the subcutaneous tissues at the superomedial left gluteal region. 2. Suspected anasarca with edema seen throughout the subcutaneous tissues. 3. Moderate right pleural effusion with accompanying atelectasis or consolidation at the right lower lobe. 4. Ascites seen around the liver, spleen and pelvis. The amount of ascites is mild to moderate. It appears too small to drain. 5. Venous stents in place in the pelvis. 6. Chronic atrophy of the kidneys bilaterally. Augustin Atkinson MD Objective Remarks GENERAL: Patient is a well-nourished female who is lying in bed in no apparent distress. She is easily woken up and is pleasant. SKIN: Mild abrasion on abdomen, no scalp abrasions, tanned skin. Healing hematoma over the left buttocks. The right knee has a clean and dry bandage on it. HEENT: Normocephalic, no nasal discharge, normal pharynx, no conjunctivitis, no scleral icterus NECK: Trachea midline. No JVD or lymphadenopathy. Supple, nontender, no meningeal signs. CARDIOVASCULAR: Heart sounds are impossible to hear given fistula murmur RESPIRATORY: Clear to auscultation. Breath sounds equal bilaterally. No wheezes , rales, or rhonchi. GASTROINTESTINAL: Abdomen soft, non-tender, nondistended. Ascites present. MUSCULOSKELETAL: Extremities without clubbing, cyanosis, or edema. No joint tenderness, effusion, or edema noted. No calf tenderness. Negative Homans sign bilaterally. NEUROLOGICAL: Awake and alert. Does not appear to be oriented. No obvious motor or strength deficits but difficult to assess given patient confusion PSYCH: Oriented to person, place, and context. Not to time. Not appearing to respond to internal stimuli. She is not agitated and answers questions appropriately. She states "I want to go home" and says her came to visit yesterday evening, which is accurate per nursing documentation Medications and IVs Inpatient Medications Acetaminophen (Tylenol) 650 mg UNSCH PRN PO for headach, pain, temp > 101F Last administered on 11/04/16 00:03; Start 11/01/16 at 13:00 Acetaminophen/ Hydrocodone Bitart ([place] 7.5-325 Mg) 1 tab Q4H PRN PO PAIN SCALE 6 TO 10; Start 10/31/16 at 16:15 Albumin Human (Albumin 25% Inj) 25 gm UNSCH PRN IV WITH DIALYSIS; Start at 13:00 Albuterol Sulfate (Albuterol Neb) 2.5 mg Q2HR NEB PRN NEB wheezing; Start 10/31 at 16:15 Albuterol/ Ipratropium (Duoneb Neb) 1 ampule Q4HR NEB PRN NEB wheezing; Start 10/31/16 at 16:15 Atorvastatin Calcium (Lipitor) 20 mg HS PO Last administered on 11/04/16 00:03 ; Start 10/31/16 at 21:00 Benztropine Mesylate (Cogentin) 2 mg Q12HR PO Last administered on 11/04/16 08 :19; Start 10/31/16 at 21:00 Cinacalcet (Sensipar) 60 mg DAILY PO Last administered on 11/04/16 08:19; Start 11/01/16 at 09:00 Clonidine (Catapres) 0.1 mg UNSCH PRN PO for BP > 180/100 X 2 readings Last administered on 11/02/16 04:25; Start 11/01/16 at 13:00 Clopidogrel Bisulfate (Plavix) 75 mg DAILY PO Last administered on 11/04/16 08 :19; Start 11/01/16 at 09:00 Diphenhydramine HCl (Benadryl) 25 mg UNSCH PRN PO for hives/itching/anaphylaxis ; Start 11/01/16 at 13:00 Epoetin Mauri (Epogen Inj) 10,000 units UNSCH PRN IV WITH DIALYSIS Last administered on 11/02/16 12:03; Start 11/01/16 at 13:00 Escitalopram Oxalate (Lexapro) 10 mg DAILY PO Last administered on 11/04/16 08 :19; Start 11/01/16 at 09:00 Gabapentin (Neurontin) 200 mg BID PO Last administered on 11/04/16 08:20; Start 10/31/16 at 21:00 Gelatin (Gelfoam 12 Mm/7 Mm Top) 1 foam UNSCH PRN TOP SEE LABEL COMMENTS Last administered on 11/02/16 12:03; Start 11/01/16 at 13:00 Gentamicin Sulfate (Gentamicin (Dialysis) Inj) 20 mg UNSCH PRN IV WITH DIALYSIS ; Start 11/01/16 at 13:00 Heparin Sodium (Porcine) (Heparin Inj) UNSCH PRN .XX WITH DIALYSIS; Start at 13:00 Heparin Sodium (Porcine) 8000 units 8,000 units UNSCH PRN IVF WITH DIALYSIS; Start 11/01/16 at 13:00 Losartan Potassium (Cozaar) 25 mg Q12HR PO Last administered on 11/04/16 08:19 ; Start 10/31/16 at 21:00 Lurasidone HCl (Latuda) 40 mg WITH DINNER PO Last administered on 11/03/16 19 :20; Start 11/03/16 at 18:00 Mannitol (Mannitol Inj) 12.5 gm UNSCH PRN IV WITH DIALYSIS; Start 11/01/16 at 13:00 Miscellaneous (Pill Splitter) 1 ea UNSCH PRN OTHER SEE LABEL COMMENTS; Start at 11:15 Miscellaneous Information 1 HS T-DERMAL ; Start 10/31/16 at 21:00; Stop at 21:00; Status DC Naloxone HCl (Narcan Inj) 0.4 mg UNSCH PRN IV SEE LABEL COMMENTS; Start at 15:30 Nicotine (Habitrol 14 Mg Patch.24 Hr) 1 patch DAILY T-DERMAL ; Start 10/31/16 at 16:15; Stop 10/31/16 at 16:28; Status DC Nifedipine (Procardia Xl) 60 mg DAILY PO Last administered on 11/04/16 08:19; Start 11/02/16 at 18:00 Nitroglycerin (Nitrostat Sl) 0.4 mg UNSCH PRN SL CHEST PAIN; Start 11/01/16 at 13:00 Ondansetron HCl (Zofran Inj) 4 mg UNSCH PRN IV WITH DIALYSIS; Start 11/01/16 at 13:00 Patient Own Medication PT OWN MED: RAVEN... BID PO ; Start 10/31/16 at 21:00; Status Hold Senna/Docusate Sodium (Katalina-Colace) 2 tab BID PRN PO constipation; Start at 15:30 Sodium Chloride (NS 1000 ml Inj) 1,000 ml @ 0 mls/hr Q0M PRN IV WITH DIALYSIS; Start 11/01/16 at 12:57 Sodium Chloride (NS Flush) 5 ml UNSCH PRN IV FLUSH WITH DIALYSIS; Start at 13:00 Trazodone HCl (Desyrel) 75 mg HS PO Last administered on 11/04/16 00:04; Start 11/02/16 at 21:00 Vitamin B Complex/ Vit C/Folic Acid (Nephrocaps) 1 cap DAILY PO Last administered on 11/04/16 08:19; Start 11/01/16 at 09:00 Ziprasidone (Geodon) 60 mg HS PO Last administered on 11/02/16 21:00; Start at 21:00; Stop 11/03/16 at 10:35; Status DC (Phylicia Tillman MD R1) Urinary Catheter: No (Phylicia Tillman MD R1) Vascular Central Line Catheter: No (Phylicia Tillman MD R1) A/P Assessment and Plan 51 year old female with a history of ESRD and bipolar depression presented with lethargy and altered mental status, which has now improved significantly. She also presented with QT prolongation likely secondary to psychotropic medications which have been reduced in dosing. Discharge Planning Patient is medically clear for discharge at this time. Psychiatry consulted for assistance with medical management. We will plan for possible discharge today pending discussion with this afternoon as he stated yesterday he was coming to the hospital and was taking care of her at home She had home health PT after SNF discharge, patient is admitted under observation status at this time and they recommended rehabilitation versus home with close home supervision for safety PT evaluation was also ordered today to assist with recommendations. (Phylicia Tillman MD R1) Attending Attestation Patient seen and examined. Case reviewed and discussed with the resident team. Agree with plan of care as discussed with me and documented in the resident note. (Alexia Borden MD) Problem List: (1) Altered mental status Status: Acute Plan: Sedation has improved significantly, patient is medically clear for discharge. Psychiatry was consulted, will appreciate recommendations regarding medication management for psychiatric conditions which likely contributed to AMS. Hospital course: No leukocytosis, no fevers. Urine negative for UTI. Chest x-ray showing pulmonary edema and cardiomegaly, possible CHF picture. Has history of cocaine and THC use per records. Head CT negative for acute bleed. Abdomen/pelvis CT scan negative for acute process, but does show multiple chronic processes including ascites. Ammonia level normal. Slightly hyponatremic/hypochloremic. Creatinine elevated 3.88 but well below her baseline, and she receives hemodialysis MWF. Glucose 88 on admission per reports she was difficult to rouse and her gave her too much trazodone which probably contributed if not being the sole cause as she has shown steady improvement with decreased med doses here in the hospital UDS on admission was negative Had MRI/MRA, rule out cerebral infarction and they were normal Has cirrhosis and ascites, however, ammonia level was normal (2) Prolonged Q-T interval on ECG Status: Acute Plan: Likely related to psychotropic medications. She was on high doses which had been titrated down this hospital stay. - Continue to monitor on telemetry and repeat EKG if indicated by new symptoms. - Avoid QT prolonging agents. or at least decrease them as she could have serious problems if stopped with her history of Psychiatric admissions Hospital course: QTc 474 on initial EKG. Potassium normal. Calcium normal. On antipsychotics. Repeat EKG 11/01 showing QTc was 428 Magnesium within normal limits Psychotropic medications adjusted as below, appreciate psychiatry recs (3) Bipolar 1 disorder Status: Chronic Plan: Ziprasidone 60 mg once nightly DISCONTINUED 11/03 per psychiatry, Latuda 40mg with dinner started 11/03 Trazodone to 75mg hs Lexapro home dose 10 mg daily Gabapentin home dose 200 mg twice a day Benztropine home dose 2 mg twice a day Consulted Psychiatry to help in medication management and choosing less QT prolonging agents Hospital Course: Does not appear to be harm to self or others On review of EMR, patient was in [facility] psych unit in June 2016 At that time her baseline was a and O 3 and she did endorse auditory hallucination at that time Psychotropic medication regimen as follows reported in June 2016 medical records: Trazodone 200 mg nightly Lexapro 10 mg daily Ziprasidone 80 mg twice a day Gabapentin 200 mg twice a day Benztropine 2 mg twice a day Ativan 1 mg every 4hr PRN anxiety Hydroxyzine 10 mg twice a day She presented in September 2016 status post fall At that time she received CT head and had hyponatremia. Home psychotropic medications were reportedly resumed at that time (4) Ascites Status: Acute Plan: Ascites noted on CT scan, stable exam. Ammonia level normal. AST/ALT normal. Coag panel normal. Checked dedicated liver ultrasound showing hepatomegaly with ascites Patient requires outpatient follow-up for this (5) ESRD (end stage renal disease) Status: Chronic Plan: Due for hemodialysis Saturday 11/04 Nephrology was consulted at admission Hemodialysis MWF schedule, creatinine actually below baseline. - Continue cinacalcet - Continue ferric citrate - Continue hemodialysis, consult nephrology for arrangements if here past tomorrow - Avoid nephrotoxic agents - Renally dose medications (6) COPD (chronic obstructive pulmonary disease) Status: Chronic Plan: Currently stable - DuoNebs PRN - Smoking cessation counseling (7) Nonsustained ventricular tachycardia Status: Acute Plan: -She continues to have nonsustained and asymptomatic V. tach. These occur daily but lasts seconds -Was possibly related to QT prolonging psychotropic medications, decreased as above -2-D echo showed EF 60%, moderate to severe AR, mild TR -Patient likely to benefit from outpatient cardiology follow-up Hospital course: Asymptomatic nonsustained V. tach noted on initial evaluation Telemetry continues to show intermittent short runs of V. tach Runs of V. tach do not seem to be clinically significant at this time Low threshold for consulting Cardiology or Critical Care if indicated by widening of QRS or QT on telemetry; would also obtain full cardiology workup if symptomatic This does not appear to be torsade which is treated with magnesium. If her EF is low she may benefit from a defibrillator (8) Hypertension Status: Chronic Plan: - Continue Losartan 25 mg q12h (9) Tobacco abuse Status: Chronic Plan: Nicotine patch Smoking cessation counseling (10) Abrasion of right knee Status: Acute Plan: Possibly related to pre-hospital fall. Basic wound care. Monitor for signs of infection. (11) Traumatic hematoma of buttock Status: Acute Plan: Likely related to knee abrasions, patient may have fallen prior to admission. No evidence of trauma this hospital stay. Will monitor (12) Nutrition, metabolism, and development symptoms Status: Acute Plan: PO fluids Slight hyponatremia, hypochloremia resolved, to monitor Renal diet (13) No contraindication to deep vein thrombosis (DVT) prophylaxis Status: Acute Plan: Heparin 5000 units tid Bilateral SCD's (Phylicia Tillman MD R1) Problem Qualifiers (1) Altered mental status: Qualified Code: R41.0 - Disorientation (2) Ascites: Qualified Code: R18.8 - Other ascites (3) COPD (chronic obstructive pulmonary disease): Qualified Code: J44.9 - Chronic obstructive pulmonary disease, unspecified COPD type (4) Hypertension: Qualified Code: I10 - Essential hypertension Phylicia Tillman MD R1 Nov 04, 2016 08:48 Alexia Borden MD Nov 05, 2016 12:56
--- NOTE | 2016-11-04 11:36 | HHI.NPPN ---
Subjective History of Present Illness 51-year-old female with past medical history of hypertension, bipolar disorder, chronic obstructive pulmonary disease, history of anxiety, end-stage renal disease on hemodialysis who was brought to the hospital because of lethargy and altered mental status. I was called to see the patient for the management of dialysis. The patient has been getting hemodialysis Wednesday, Wednesday and Wednesday in [place] and she has been following with Dr. Vinson. Additional Remarks Patient seen on HD, more alert, oriented times 1. Review of Systems General Constitutional: Fatigue Cardiovascular Cardiac: KEITH Objective Data Data 11/03/16 11/04/16 19:00 07:00 # Voids 0 Vital Signs Date Time Temp Pulse Resp B/P Pulse Ox O2 Delivery O2 Flow Rate FiO2 11/04/16 08:33 Room Air 11/04/16 05:49 97.3 74 20 119/72 93 11/04/16 01:15 97.5 73 20 131/60 93 11/03/16 20:00 Room Air 11/03/16 20:00 97.7 74 20 126/58 97 11/03/16 18:40 96.7 76 20 137/100 92 11/03/16 12:22 97.4 70 18 140/60 95 -: 11/03/16 0615 11/03/16 0615 Physical Exam General Appearance: Comfortable, Anxious Eyes Eye Exam: Pupils Equal Neck Neck Exam: Neck Supple Pulmonary Resp Exam: Breath Sounds Equal, No Distress, Rhonchi, Decreased Bases Cardiology CV Exam: Regular, Normal Sinus Rhythm Gastrointestinal/Abdomen GI Exam: Soft, Non-Tender, Bowel Sounds Present Extremeties Extremities Exam: Trace Edema Neurologic Neuro Exam: Obtunded Assessment/Plan Assessment Summary: Hypertension, End Stage Renal Disease Problem List: (1) Anemia (2) HTN (hypertension) (3) Bipolar disorder (4) Encephalopathy (5) COPD (chronic obstructive pulmonary disease) (6) ESRD (end stage renal disease) Plan Patient has HD done yesterday. Remain confused and now also lethargic. BP is better with Nifedipine. On Epogen for anemia. HD now, remove fluid as tolerated. Seen by psychiatry and started on Geodon. Problem Qualifiers (1) COPD (chronic obstructive pulmonary disease): Qualified Code: J44.9 - Chronic obstructive pulmonary disease, unspecified COPD type Jessica Colin MD Nov 04, 2016 11:36
[2016-11-04] MEDS: GELATIN 12 MM/7 MM FOAM TOP PRN (11:50)
[2016-11-04] MEDS: EPOETIN ALFA 10,000 UNITS/ML VIAL IV PRN (11:50)
[2016-11-04 12:57] VITALS: PULSE 88
[2016-11-04 14:55] VITALS: O2SAT 97
[2016-11-04] MEDS ORDERED: LURA40 PO (16:00)
[2016-11-04] MEDS ORDERED: TRAZ50TA12 PO (16:00)
--- NOTE | 2016-11-04 16:01 | HHI.DCPOC ---
Discharge Care Plan Diagnosis: (1) Altered mental status (2) Delirium due to general medical condition (3) Prolonged Q-T interval on ECG (4) Bipolar 1 disorder, depressed Goals to Promote Your Health * To prevent worsening of your condition and complications * To maintain your health at the optimal level Directions to Meet Your Goals Take your medications as prescribed Follow your dietary instruction Follow activity as directed Keep your appointments as scheduled Take your immunizations and boosters as scheduled If your symptoms worsen call your PCP, if no PCP go to Urgent Care Center or Emergency Room Smoking is Dangerous to Your Health. Avoid second hand smoke Call the 24-hour hour crisis hotline for domestic abuse at Jones Navarro MD R2 Nov 04, 2016 16:01
--- NOTE | 2016-11-04 16:04 | HHI.FF ---
Face to Face Verification Diagnosis: (1) Bipolar 1 disorder, depressed (2) Delirium due to general medical condition (3) HTN (hypertension) (4) Altered mental status (5) Chronic kidney disease (6) ESRD (end stage renal disease) Physical Therapy Order: Evaluate and Treat Occupational Therapy Order: Evaluate and Treat Home Health Nursing Order: Medical education Signs/symptoms of disease process Medication education-adverse effect Nursing assessment with vital signs Home Health Aide Order: To Assist In: Bathing and personal care, city recorder and meal prep Loss Prevention Leader Order: To Evaluate: Living conditions/environment, Support services Order: To Provide: Long range planning, Community services I have seen patient Deborah Cheema on 11/04/16. My clinical findings support the need for the requested home health care services because: Ltd mobility - disease progression Patient has SOB Deconditioned w/ increased weakness Med compliance is questionable Limited ability to care for self Need for psychosocial assistance Impaired cognition/judgement High risk of falls I certify that my clinical findings support that this patient is homebound because: Impaired cognitive ability/safety Hx COPD- exertion dyspnea/weakness Unsteady gait/balance Need for psychosocial assistance Jones Navarro MD R2 Nov 04, 2016 16:04
--- NOTE | 2016-11-04 16:27 | HHI.DS ---
Discharge Summary Admission Date Oct 31, 2016 at 14:35 Discharge Date: Nov 04, 2016 Admitting Diagnosis AMS (1) Altered mental status Diagnosis: Principal Plan: Sedation has improved significantly, patient is medically clear for discharge. Psychiatry was consulted, will appreciate recommendations regarding medication management for psychiatric conditions which likely contributed to AMS. Hospital course: No leukocytosis, no fevers. Urine negative for UTI. Chest x-ray showing pulmonary edema and cardiomegaly, possible CHF picture. Has history of cocaine and THC use per records. Head CT negative for acute bleed. Abdomen/pelvis CT scan negative for acute process, but does show multiple chronic processes including ascites. Ammonia level normal. Slightly hyponatremic/hypochloremic. Creatinine elevated 3.88 but well below her baseline, and she receives hemodialysis MWF. Glucose 88 on admission per reports she was difficult to rouse and her gave her too much trazodone which probably contributed if not being the sole cause as she has shown steady improvement with decreased med doses here in the hospital UDS on admission was negative Had MRI/MRA, rule out cerebral infarction and they were normal Has cirrhosis and ascites, however, ammonia level was normal (2) Prolonged Q-T interval on ECG Diagnosis: Principal Plan: Likely related to psychotropic medications. She was on high doses which had been titrated down this hospital stay. - Continue to monitor on telemetry and repeat EKG if indicated by new symptoms. - Avoid QT prolonging agents. or at least decrease them as she could have serious problems if stopped with her history of Psychiatric admissions Hospital course: QTc 474 on initial EKG. Potassium normal. Calcium normal. On antipsychotics. Repeat EKG 11/01 showing QTc was 428 Magnesium within normal limits Psychotropic medications adjusted as below, appreciate psychiatry recs (3) Bipolar 1 disorder Diagnosis: Secondary Plan: Ziprasidone 60 mg once nightly DISCONTINUED 11/03 per psychiatry, Latuda 40mg with dinner started 11/03 Trazodone to 75mg hs Lexapro home dose 10 mg daily Gabapentin home dose 200 mg twice a day Benztropine home dose 2 mg twice a day Consulted Psychiatry to help in medication management and choosing less QT prolonging agents Hospital Course: Does not appear to be harm to self or others On review of EMR, patient was in [place] inpatient psych unit in June 2016 At that time her baseline was a and O 3 and she did endorse auditory hallucination at that time Psychotropic medication regimen as follows reported in June 2016 medical records: Trazodone 200 mg nightly Lexapro 10 mg daily Ziprasidone 80 mg twice a day Gabapentin 200 mg twice a day Benztropine 2 mg twice a day Ativan 1 mg every 4hr PRN anxiety Hydroxyzine 10 mg twice a day She presented in September 2016 status post fall At that time she received CT head and had hyponatremia. Home psychotropic medications were reportedly resumed at that time (4) Ascites Diagnosis: Secondary Plan: Ascites noted on CT scan, stable exam. Ammonia level normal. AST/ALT normal. Coag panel normal. Checked dedicated liver ultrasound showing hepatomegaly with ascites Patient requires outpatient follow-up for this (5) ESRD (end stage renal disease) Diagnosis: Secondary Plan: Due for hemodialysis Saturday 11/04 Nephrology was consulted at admission Hemodialysis MWF schedule, creatinine actually below baseline. - Continue cinacalcet - Continue ferric citrate - Continue hemodialysis, consult nephrology for arrangements if here past tomorrow - Avoid nephrotoxic agents - Renally dose medications (6) COPD (chronic obstructive pulmonary disease) Diagnosis: Secondary Plan: Currently stable - DuoNebs PRN - Smoking cessation counseling (7) Nonsustained ventricular tachycardia Diagnosis: Secondary Plan: -She continues to have nonsustained and asymptomatic V. tach. These occur daily but lasts seconds -Was possibly related to QT prolonging psychotropic medications, decreased as above -2-D echo showed EF 60%, moderate to severe AR, mild TR -Patient likely to benefit from outpatient cardiology follow-up Hospital course: Asymptomatic nonsustained V. tach noted on initial evaluation Telemetry continues to show intermittent short runs of V. tach Runs of V. tach do not seem to be clinically significant at this time Low threshold for consulting Cardiology or Critical Care if indicated by widening of QRS or QT on telemetry; would also obtain full cardiology workup if symptomatic This does not appear to be torsade which is treated with magnesium. If her EF is low she may benefit from a defibrillator (8) Hypertension Diagnosis: Secondary Plan: - Continue Losartan 25 mg q12h (9) Tobacco abuse Diagnosis: Secondary Plan: Nicotine patch Smoking cessation counseling (10) Abrasion of right knee Diagnosis: Secondary Plan: Possibly related to pre-hospital fall. Basic wound care. Monitor for signs of infection. (11) Traumatic hematoma of buttock Diagnosis: Secondary Plan: Likely related to knee abrasions, patient may have fallen prior to admission. No evidence of trauma this hospital stay. Will monitor (12) Nutrition, metabolism, and development symptoms Diagnosis: Secondary Plan: PO fluids Slight hyponatremia, hypochloremia resolved, to monitor Renal diet (13) No contraindication to deep vein thrombosis (DVT) prophylaxis Diagnosis: Secondary Plan: Heparin 5000 units tid Bilateral SCD's Consultants Psychiatry Procedures None Brief History HISTORY OBTAINED FROM SECONDARY SOURCES, PATIENT DOES NOT PROVIDE MUCH HISTORY Ms Cheema is a 51 year old female with a history of anxiety, bipolar disorder, COPD, tobacco abuse, and ESRD on hemodialysis who presented with altered mental status, weakness, and lethargy. She had been feeling sleepy and out of it. She was discharged from [facility] the day before yesterday. Home health nurse found her to be lethargic and out of it and recommended she be evaluated in the hospital. gave her two trazodone overnight and is uncertain if he was only supposed to give her one. She also had generalized weakness. Per , at her baseline she sometimes requires a walker, does have auditory hallucinations at baseline from bipolar disorder. Per history from the , she was "unresponsive" when he tried to get her out of bed this morning. 911 was called. She fell on her buttocks while they were getting her into the ambulance. She did not hit her head. Gradually in the ED she improved and came back to her presumed normal being able to answer questions but not quickly and still not a good historian. She does very much want to go home as soon as she can. She has no complaints but was seen to have runs of V tach. She does not have sustained V tach and there is no torsade seen. She was found to have QT prolongation on her first EKG but her had given her too much trazadone. On admission, her geodon and other meds were decreased. Her magnesium was checked and was in the high end of the normal range. Per her nurse, she was a bit difficult to wake up this am and required sternal rub to awaken but she was not lethargic or sedated this am. She is a difficult historian as she does not spontaneously offer much or any information but when asked about hallucinations which she has had in the past, she nodded that they were occurring but she denied suicidal ideation. It is unclear at this point if decreasing her goedon in particular has had a deleterious effect as she is not very forthcoming and I do not know her normal baseline. Reginald is associated with the most QT prolongation of all the antipsychotics. Hopefully, her can give us some insight into her normal condition and her current functioning compared to that. Perhaps record could be obtained from [facility] as well. CBC/BMP: 11/03/16 0615 11/03/16 0615 Significant Findings Laboratory Tests Test 11/03/16 06:15 Red Blood Count 3.07 MIL/MM3 (4.00-5.30) Hemoglobin 9.0 GM/DL (11.6-15.3) Hematocrit 27.8 % (35.0-46.0) Red Cell Distribution Width 19.3 % (11.6-17.2) Platelet Count 132 TH/MM3 (150-450) Monocytes (%) (Auto) 12.7 % (0.0-8.0) Lymphocytes # (Auto) 0.9 TH/MM3 (1.0-4.8) Creatinine 4.65 MG/DL (0.50-1.00) Estimat Glomerular Filtration 10 ML/MIN (>89) Rate Imaging Last Impressions Liver Ultrasound 11/01/16 0000 Signed Impressions: Service Date/Time: Tuesday, November 01, 2016 08:35 - CONCLUSION: Hepatomegaly with ascites. Augustin Atkinson MD Chest X-Ray 10/31/16 1019 Signed Impressions: Service Date/Time: Monday, October 31, 2016 10:58 - CONCLUSION: 1. Diffuse increased interstitial markings with borderline cardiomegaly likely representing edema and possible CHF. 2. Mild to moderate right pleural effusion. Augustin Atkinson MD Head Magnetic Resonance Angiography 10/31/16 0000 Signed Impressions: Service Date/Time: Monday, October 31, 2016 17:11 - CONCLUSION: Negative MRA of the [place]. Frandy Arciniega MD Head CT 10/31/16 0000 Signed Impressions: Service Date/Time: Monday, October 31, 2016 12:02 - CONCLUSION: 1. No acute abnormality seen. 2. 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 Augustin Atkinson MD Brain MRI 10/31/16 0000 Signed Impressions: Service Date/Time: Monday, October 31, 2016 17:11 - CONCLUSION: Negative MRI of the brain without contrast Frandy Arciniega MD Abdomen/Pelvis CT 10/31/16 0000 Signed Impressions: Service Date/Time: Monday, October 31, 2016 12:06 - CONCLUSION: 1. 8 cm hematoma in the subcutaneous tissues at the superomedial left gluteal region. 2. Suspected anasarca with edema seen throughout the subcutaneous tissues. 3. Moderate right pleural effusion with accompanying atelectasis or consolidation at the right lower lobe. 4. Ascites seen around the liver, spleen and pelvis. The amount of ascites is mild to moderate. It appears too small to drain. 5. Venous stents in place in the pelvis. 6. Chronic atrophy of the kidneys bilaterally. Augustin Atkinson MD PE at Discharge GENERAL: Patient is a well-nourished female who is lying in bed in no apparent distress. She is easily woken up and is pleasant. SKIN: Mild abrasion on abdomen, no scalp abrasions, tanned skin. Healing hematoma over the left buttocks. The right knee has a clean and dry bandage on it. HEENT: Normocephalic, no nasal discharge, normal pharynx, no conjunctivitis, no scleral icterus NECK: Trachea midline. No JVD or lymphadenopathy. Supple, nontender, no meningeal signs. CARDIOVASCULAR: Heart sounds are impossible to hear given fistula murmur RESPIRATORY: Clear to auscultation. Breath sounds equal bilaterally. No wheezes , rales, or rhonchi. GASTROINTESTINAL: Abdomen soft, non-tender, nondistended. Ascites present. MUSCULOSKELETAL: Extremities without clubbing, cyanosis, or edema. No joint tenderness, effusion, or edema noted. No calf tenderness. Negative Homans sign bilaterally. NEUROLOGICAL: Awake and alert. Does not appear to be oriented. No obvious motor or strength deficits but difficult to assess given patient confusion PSYCH: Oriented to person, place, and context. Not to time. Not appearing to respond to internal stimuli. She is not agitated and answers questions appropriately. She states "I want to go home" and says her came to visit yesterday evening, which is accurate per nursing documentation Hospital Course This 51-year-old female who was admitted for altered mental status. Found to have been oversedated on trazodone. While in the hospital she was found to have a QT prolongation cause believed to be due to Geodon. Patient's medication was converted to Latuda, and her trazodone was decreased. Her altered mental status quickly improved, she is now back to her baseline. She wishes to be discharged home with home health rather than a [facility] facility for long-term care. Since she is stable we will discharge her home on the new medication regimen with psychiatric follow-up Pt Condition on Discharge: Stable Discharge Disposition: Disch w/ Home Health Serv Discharge Instructions DIET: Follow Instructions for: Diabetic Diet Activities you can perform: Regular-No Restrictions Follow up Referrals: Nephrology - 2 Weeks PCP Follow-up - 1 Week Psychiatry Adult - 1 Week New Medications: Lurasidone (Latuda) 40 Mg Tab 40 MG PO WITH DINNER #60 Ref 1 TAB Trazodone (Trazodone) 50 Mg Tab 75 MG PO HS #60 Ref 1 TAB Continued Medications: Atorvastatin (Atorvastatin) 20 Mg Tab 20 MG PO HS Cholesterol Management #30 Ref 0 TAB B-Complex W/ C & Folic Acid (Nephrocaps) 1 Cap 1 CAP PO DAILY If on dialysis, take after treatment. Nutritional Supplement #30 Ref 0 CAP Benztropine (Benztropine) 2 Mg Tab 2 MG PO Q12HR side effects Days 10 Ref 1 TAB Cinacalcet (Sensipar) 60 Mg Tab 60 MG PO DAILY With Dinner #30 Ref 0 TAB Clopidogrel (Plavix) 75 Mg Tab 75 MG PO DAILY Blood Clot Prevention #30 Ref 0 TAB Escitalopram (Lexapro) 10 Mg Tab 10 MG PO DAILY #30 Ref 0 TAB Ferric Citrate (Auryxia) 210 Mg Tab 210 MG PO 2-3 TIMES A DAY Take with meals 2-3 times a day Ferric Citrate (Auryxia) 210 Mg Tab TAB PO TID Gabapentin (Neurontin) 100 Mg Cap 200 MG PO BID #60 Ref 0 CAP Hydrocodone-Acetaminophen (Hydrocodone-Acetaminophen) 7.5-325 mg Tab 1 TAB PO Q4H PRN PAIN SCALE 6 TO 10 #30 Ref 0 TAB Losartan (Cozaar) 25 Mg Tab 25 MG PO Q12HR Blood Pressure Management #60 Ref 0 TAB Metoclopramide (Reglan) 5 Mg Tab 5 MG PO TIDAC Ref 0 TAB Discontinued Medications: Trazodone (Trazodone) 100 Mg Tab 200 MG PO HS Control Depression #30 Ref 0 TAB Ziprasidone (Geodon) 80 Mg Cap 80 MG PO BID #60 Ref 0 CAP Melanie,Jones D MD R2 Nov 04, 2016 16:27
[2016-11-10] MEDS ORDERED: PLAV75TA29 PO (15:49)
[2016-11-10] MEDS ORDERED: LOSA50TA PO (15:49)
[2016-11-10] MEDS ORDERED: SENS60TA PO (15:50)
== END 2016-11-04 18:09 | disposition home or self-care (01) ==
LOC: NEPC 09:59 → NEDA 14:35 → N06A 17:49 → N05B 11-03 17:19
PROVIDERS: ADMIT Family Medicine; ATTEND Family Medicine
DX: G93.40 Encephalopathy, unspecified (principal); R41.82 Altered mental status, unspecified; N18.6 End stage renal disease; R53.1 Weakness; Z79.01 Long term (current) use of anticoagulants; F31.9 Bipolar disorder, unspecified; R94.31 Abnormal electrocardiogram [ECG] [EKG]; J44.9 Chronic obstructive pulmonary disease, unspecified; Z99.2 Dependence on renal dialysis; F12.10 Cannabis abuse, uncomplicated; F17.210 Nicotine dependence, cigarettes, uncomplicated; F14.10 Cocaine abuse, uncomplicated; Z79.899 Other long term (current) drug therapy; R44.0 Auditory hallucinations; E78.5 Hyperlipidemia, unspecified; R25.1 Tremor, unspecified; I51.7 Cardiomegaly; J90 Pleural effusion, not elsewhere classified; J98.11 Atelectasis; R18.8 Other ascites; J81.1 Chronic pulmonary edema; E87.8 Other disorders of electrolyte and fluid balance, not elsewhere classified; E87.1 Hypo-osmolality and hyponatremia; F41.9 Anxiety disorder, unspecified; I45.81 Long QT syndrome; I47.2 Ventricular tachycardia; Z91.81 History of falling; D64.9 Anemia, unspecified; S80.211A Abrasion, right knee, initial encounter; S30.0XXA Contusion of lower back and pelvis, initial encounter
CPT/HCPCS: 70450; 70544; 70551; 71010; 74176; 76705; 80048; 80053; 80076; 80307; 81001; 82140; 82550; 82607; 83605; 83735; 83880; 84100; 84484; 85025; 85610; 85730; 87040; 93005; 93306; 96374; 97110; 97116; 97162; 97530; 99285; G0257; G0378; G8987; G8988; J1644; P9612; Q4081; 90935

== ENCOUNTER 2016-12-01 19:44 | Inpatient (IN) | payer MEDICARE, OTHER ==
[~2016-12-01 19:44] MED LIST changes: -COZA25TA PO; -GEOD80CA PO; +LOSA50TA PO; +LURA40 PO; -TRAZ100T4 PO; +TRAZ50TA12 PO
[2016-12-01 19:47] VITALS: BP 161/69; PULSE 67; RESP 16; TEMP 97.4; O2SAT 97
--- NOTE | 2016-12-01 20:13 | PD ---
HPI Chief Complaint: GI Complaint Time Seen by Provider: 20:11 Travel History International Travel<30 days: No Contact w/Intl Traveler<30days: No Traveled to known affect area: No History of Present Illness HPI 51 year old female presents to the emergency department for evaluation of abdominal pain, nausea, vomiting, constipation for 1 week. Patient reports history of anxiety, bipolar disorder, COPD, tobacco abuse, and ESRD on hemodialysis. She states her teachers assistant is Dr. Vinson. She was getting hemodialysis on Wednesday, Wednesday, Wednesday. She states she has had a history of constipation in the past. She states that she has had 6 Dulcolax the last 2 days and has been drinking juice without success. She denies any history of bowel obstruction or abdominal surgeries. PFSH Past Medical History Hx Anticoagulant Therapy: Yes (PLAVIX) Asthma: No Bipolar Disorder: Yes (A/V HALLUCINATION) Anxiety: Yes Depression: Yes Cancer: No Cardiovascular Problems: Yes COPD: Yes Dialysis: Yes ([facility]DA[facility] FRIDA[facility]) Diminished Hearing: No Endocrine: No Immune Disorder: No Implanted Vascular Access Dvce: Yes Kidney Stones: No Musculoskeletal: No Neurologic: No Psychiatric: Yes Reproductive: No Respiratory: Yes (emphysema) Renal Failure: Yes (IS ON DIALYSIS) Menopausal: Yes : 4 Para: 3 : 1 Past Surgical History Body Medical Devices: A/V SHUNT- LEFT CHEST Section: Yes Gynecologic Surgery: Yes ( X 3 ) Other Surgery: Yes (cyst ovary drained/ AV- SHUNT- LEFT CHEST-) Social History Alcohol Use: No Tobacco Use: Yes (1/2ppd) Substance Use: Yes (Past hx of crack and marijuana abuse) Allergies-Medications (Allergen,Severity, Reaction): Coded Allergies: No Known Allergies (Unverified , 12/01/16) Reported Meds & Prescriptions Reported Meds & Active Scripts Active Sensipar (Cinacalcet) 60 Mg Tab 60 Mg PO DAILY With Dinner Plavix (Clopidogrel Bisulfate) 75 Mg Tab 75 Mg PO DAILY Losartan (Losartan Potassium) 50 Mg Tab 50 Mg PO DAILY Latuda (Lurasidone) 40 Mg Tab 40 Mg PO WITH DINNER Trazodone (Trazodone HCl) 50 Mg Tab 75 Mg PO HS Hydrocodone-Acetaminophen 7.5-325 mg Tab 1 Tab PO Q4H PRN Benztropine (Benztropine Mesylate) 2 Mg Tab 2 Mg PO Q12HR 10 Days Reported Auryxia (Ferric Citrate) 210 Mg Tab Tab PO TID Auryxia (Ferric Citrate) 210 Mg Tab 210 Mg PO 2-3 TIMES A DAY Take with meals 2-3 times a day Atorvastatin (Atorvastatin Calcium) 20 Mg Tab 20 Mg PO HS Neurontin (Gabapentin) 100 Mg Cap 200 Mg PO BID Reglan (Metoclopramide HCl) 5 Mg Tab 5 Mg PO TIDAC Nephrocaps (B-Complex W/ C & Folic Acid) 1 Cap 1 Cap PO DAILY If on dialysis, take after treatment. Lexapro (Escitalopram Oxalate) 10 Mg Tab 10 Mg PO DAILY Review of Systems Except as stated in HPI: all other systems reviewed are Neg Physical Exam Narrative GENERAL: Well-nourished, well-developed female patient. SKIN: Focused skin assessment warm/dry. HEAD: Normocephalic. EYES: No scleral icterus. No injection or drainage. NECK: Supple, trachea midline. No JVD or lymphadenopathy. CARDIOVASCULAR: Regular rate and rhythm without murmurs, gallops, or rubs. RESPIRATORY: Breath sounds equal bilaterally. No accessory muscle use. GASTROINTESTINAL: Abdomen soft, non-tender, nondistended. MUSCULOSKELETAL: No cyanosis, or edema. BACK: Nontender without obvious deformity. No CVA tenderness. Data Data Last Documented VS Vital Signs Date Time Temp Pulse Resp B/P Pulse Ox O2 Delivery O2 Flow Rate FiO2 12/01/16 19:47 97.4 67 16 161/69 97 Room Air Orders Complete Blood Count With Diff (12/01/16 20:08) Comprehensive Metabolic Panel (12/01/16 20:08) Lipase (12/01/16 20:08) Iv Access Insert/Monitor (12/01/16 20:08) Ecg Monitoring (12/01/16 20:08) Oximetry (12/01/16 20:08) Sodium Chloride 0.9% Flush (Ns Flush) (12/01/16 20:15) Ct Abd/Pel W/O Iv Contrast (12/01/16 20:16) Diatrizoate Liq ( Gastrojasmin Liq) (12/01/16 20:49) Oral Contrast - Adult (12/01/16 20:54) Admit Order (Ed Use Only) (12/01/16 23:01) Labs Laboratory Tests Test 12/01/16 20:35 White Blood Count 6.7 TH/MM3 Red Blood Count 3.81 MIL/MM3 Hemoglobin 10.7 GM/DL Hematocrit 33.3 % Mean Corpuscular Volume 87.4 FL Mean Corpuscular Hemoglobin 28.1 PG Mean Corpuscular Hemoglobin 32.2 % Concent Red Cell Distribution Width 15.3 % Platelet Count 158 TH/MM3 Mean Platelet Volume 9.5 FL Neutrophils (%) (Auto) 72.4 % Lymphocytes (%) (Auto) 16.1 % Monocytes (%) (Auto) 9.8 % Eosinophils (%) (Auto) 0.3 % Basophils (%) (Auto) 1.4 % Neutrophils # (Auto) 4.9 TH/MM3 Lymphocytes # (Auto) 1.1 TH/MM3 Monocytes # (Auto) 0.7 TH/MM3 Eosinophils # (Auto) 0.0 TH/MM3 Basophils # (Auto) 0.1 TH/MM3 CBC Comment DIFF FINAL Differential Comment Sodium Level 125 MEQ/L Potassium Level 4.1 MEQ/L Chloride Level 86 MEQ/L Carbon Dioxide Level 25.9 MEQ/L Anion Gap 13 MEQ/L Blood Urea Nitrogen 18 MG/DL Creatinine 5.21 MG/DL Estimat Glomerular Filtration 9 ML/MIN Rate Random Glucose 111 MG/DL Calcium Level 8.5 MG/DL Total Bilirubin 0.5 MG/DL Aspartate Amino Transf 65 U/L (AST/SGOT) Alanine Aminotransferase 27 U/L (ALT/SGPT) Alkaline Phosphatase 128 U/L Total Protein 7.1 GM/DL Albumin 3.2 GM/DL Lipase 108 U/L MDM Medical Decision Making Medical Screen Exam Complete: Yes Emergency Medical Condition: Yes Medical Record Reviewed: Yes Interpretation(s) CT abdomen/pelvis - CONCLUSION: 1. Moderate size right pleural effusion remains with consolidation in the right lung base. 2. Nonspecific, nonobstructive bowel gas pattern most consistent with a mild ileus. 3. Small atrophic kidneys again noted with benign calcifications. 4. Moderate amount of ascitic fluid. 5. Decrease in size in the hematoma in the left gluteal region. 6. Anasarca again noted. Differential Diagnosis Constipation versus small bowel obstruction versus colitis versus pancreatitis Narrative Course 51 year old female presents to the emergency department for evaluation of vomiting, abdominal pain, constipation for 1 week. CBC, CMP, Lipase, CT abdomen /pelvis with PO contrast is ordered and pending. CBC shows no acute abnormality. CMP shows hyponatremia of 125, creatinine of 5.21, AST 65, alkaline phosphatase 128. Lipase is 108. CT abdomen/pelvis shows moderate size right pleural effusion remains with consolidation in the right lung base; nonspecific, nonobstructive bowel gas pattern most consistent with a mild ileus; small atrophic kidneys again noted with benign calcifications ; moderate amount of ascitic fluid; secrease in size in the hematoma in the left gluteal region; anasarca again noted. I discussed findings with my attending physician, Dr. Strickland who recommends admission. Patient agrees. Dr. Calvillo accepted admission. Diagnosis Primary Impression: Ileus Additional Impressions: ESRD (end stage renal disease) Hyponatremia Admitting Information Admitting Physician Requests: Evonne Rivas December 01, 2016 20:13
[2016-12-01] MEDS ORDERED: SODIUM CHLORIDE 0.9% FLUSH 10 ML FLUSH IV FLUSH PRN (20:15)
[2016-12-01] MEDS ORDERED: DIATRIZOATE MEGLUM/DIATRIZOATE SOD 9 ML CUP ONE (20:49)
[2016-12-01 20:54] LABS: AUTOMATED NEUTROPHIL # 4.9 TH/MM3 (1.8-7.7); BASOPHIL # 0.1 TH/MM3 (0-0.2); BASOPHIL % 1.4 % (0.0-2.0); EOSINOPHIL % 0.3 % (0.0-4.0); HEMATOCRIT 33.3 % (35.0-46.0); HEMO FLAGS DIFF FINAL; LYMPH % 16.1 % (9.0-44.0); LYMPHOCYTE # 1.1 TH/MM3 (1.0-4.8); MEAN CELL VOLUME 87.4 FL (80.0-100.0); MEAN CORPUSCULAR HEMOGLOBIN 28.1 PG (27.0-34.0); MEAN CORPUSCULAR HGB CONC 32.2 % (32.0-36.0); MONO % 9.8 % (0.0-8.0); NEUT % 72.4 % (16.0-70.0); PLATELET COUNT 158 TH/MM3 (150-450); RED BLOOD COUNT 3.81 MIL/MM3 (4.00-5.30); RED CELL DISTRIBUTION WIDTH 15.3 % (11.6-17.2); WHITE BLOOD COUNT 6.7 TH/MM3 (4.0-11.0)
[2016-12-01 21:17] LABS: ANION GAP 13 MEQ/L (5-15); AST (GOT) 65 U/L (15-37); BICARBONATE 25.9 MEQ/L (21.0-32.0); BLOOD UREA NITROGEN 18 MG/DL (7-18); CHLORIDE 86 MEQ/L (98-107); GLOMERULAR FILTRATION RATE 9 ML/MIN (>89); POTASSIUM 4.1 MEQ/L (3.5-5.1); SODIUM (NA) 125 MEQ/L (136-145)
[2016-12-01 21:18] LABS: ALKALINE PHOSPHATASE 128 U/L (45-117); ALT (GPT) 27 U/L (10-53); TOTAL BILIRUBIN ADULT 0.5 MG/DL (0.2-1.0)
--- NOTE | 2016-12-01 22:47 | RADRPT ---
EXAM DATE/TIME: 12/01/2016 22:20 [facility] COMPARISON: CT ABDOMEN & PELVIS W/O CONTRAST, October 31, 2016, 12:06. INDICATIONS : Abdominal pain, bloating and constipation. Known left gluteal region hematoma. ORAL CONTRAST: Prescribed oral contrast ingested. RADIATION DOSE: 10.08 CTDIvol (mGy) MEDICAL HISTORY : Chronic obstructive pulmonary disease. Renal failure, chronic. Emphysema. Dialysis. SURGICAL HISTORY : section. AV Shunt. ENCOUNTER: Initial ACUITY: 1 week PAIN SCALE: 10/10 LOCATION: All quadrants. TECHNIQUE: Volumetric scanning of the abdomen and pelvis was performed. Using automated exposure control and ad justment of the mA and/or kV according to patient size, radiation dose was kept as low as reasonably achievable to obtain optimal diagnostic quality images. FINDINGS: LOWER LUNGS: Moderate size right pleural effusion and consolidation again noted in the right lung base with air br onchograms. LIVER: Homogeneous density without lesion. There is no dilation of the biliary tree. No calcified gallston es. SPLEEN: Normal size without lesion. PANCREAS: Within normal limits. KIDNEYS: The kidneys remain small and atrophic with benign calcifications again noted. ADRENAL GLANDS: Within normal limits. VASCULAR: There is no aortic aneurysm. Atherosclerotic change is again noted with venous stent catheters again noted in the pelvis. BOWEL/MESENTERY: Moderate amount of ascitic fluid is again noted. Gas and stool are again noted segmentally in the col on with mild gaseous distention in portions of the colon. Small bowel is decompressed. The stomach, s mall bowel, and colon demonstrate no acute abnormality. There is no free intraperitoneal air or flui d. ABDOMINAL WALL: Within normal limits. The known hematoma in the left gluteal region has decreased in size. There is d iffuse edema in the subcutaneous fat. RETROPERITONEUM: There is no lymphadenopathy. BLADDER: No wall thickening or mass. REPRODUCTIVE: Within normal limits. INGUINAL: There is no lymphadenopathy or hernia. MUSCULOSKELETAL: Within normal limits for patient age. CONCLUSION: 1. Moderate size right pleural effusion remains with consolidation in the right lung base. 2. Nonspecific, nonobstructive bowel gas pattern most consistent with a mild ileus. 3. Small atrophic kidneys again noted with benign calcifications. 4. Moderate amount of ascitic fluid. 5. Decrease in size in the hematoma in the left gluteal region. 6. Anasarca again noted. Bola Faustin MD on December 01, 2016 at 22:41 Board Certified Radiologist. This report was verified electronically.
[2016-12-01] MEDS ORDERED: ONDANSETRON HCL 4 MG/2 ML VIAL IV PUSH ONE (23:15)
[2016-12-02] VITALS (8 sets, daily range): BP systolic 137–156; BP diastolic 65–70; PULSE 56–66; RESP 16–20; TEMP 97.4–98.1; O2SAT 93–100
[2016-12-02] MEDS ORDERED: ACETAMINOPHEN 325 MG TAB PO PRN ×3 (02:30→16:30)
[2016-12-02] MEDS ORDERED: NALOXONE HCL 0.4 MG/ML AMP IV PRN (02:30)
[2016-12-02] MEDS ORDERED: SOD PHOSPHATE/SOD BIPHOSPHATE (ADULT) ENEMA 133ML RECTAL ONE (02:30)
[2016-12-02] MEDS ORDERED: ONDANSETRON HCL 4 MG/2 ML VIAL IVP PRN (02:30)
[2016-12-02] MEDS ORDERED: SODIUM CHLORIDE 0.9% FLUSH 10 ML FLUSH IV FLUSH PRN ×2 (02:30→16:30)
--- NOTE | 2016-12-02 02:49 | HHI.HP ---
[facility] Ashley Wilhelm MD Admission Diagnosis ileus, ESRD on dialysis, hyponatremia Diagnoses: Chief Complaint: Constipation Travel History International Travel<30 Days: No Contact w/Intl Traveler <30 Da: No Traveled to Known Affected Are: No History of Present Illness The patient is a 51-year-old female with a past medical history of end-stage renal disease on dialysis who is presenting to the hospital with constipation, and nausea and vomiting. The patient says that she has not had a bowel movement in over a week. She then goes on to say that it might be over a week and might actually be 2 weeks since her last bowel movement. She says she has been taking prune juice and has been taking orange pills. She has not experienced a bowel movement with this regimen but she has been passing gas. She has not sought any medical advice. She has been experiencing nausea and vomiting. She has not noticed any blood in the vomitus. She says her vomit appears liquid in nature. She has been experiencing upper abdominal pain that she rates as a 10 out of 10 in severity. She has not been eating well over the past few days. She also has not been sleeping. She denies any fevers. She has been going to dialysis as per routine. The patient states she tends to ambulate with a walker. Review of Systems Except as stated in HPI: all other systems reviewed are Neg Past Family Social History Past Medical History ESRD Bipolar disorder HTN HLP COPD Hx of cocaine/THC use A/V shunt X 3 Ovarian cyst drainage Allergies: Coded Allergies: No Known Allergies (Unverified , 12/01/16) Active Ordered Medications Current Medications Medications (Trade) Dose Ordered Sig/Lora Route Start Time Stop Time Status Last Admin (NS Flush) 2 ml UNSCH PRN IV FLUSH 12/01/16 20:15 (Lipitor) 20 mg HS PO 12/02/16 21:00 (Nephrocaps) 1 cap DAILY PO 12/02/16 09:00 (Cogentin) 2 mg Q12HR PO 12/02/16 09:00 (Plavix) 75 mg DAILY PO 12/02/16 09:00 (Lexapro) 10 mg DAILY PO 12/02/16 09:00 (Cozaar) 50 mg DAILY PO 12/02/16 09:00 (Desyrel) 75 mg HS PO 12/02/16 21:00 (Sensipar) 60 mg DAILY PO 12/02/16 09:00 (Reglan Liq) 5 mg TIDAC PO 12/02/16 09:00 (Neurontin) 300 mg Q24H PO 12/02/16 09:00 (Fleets Enema (Adult)) 133 ml ONCE ONCE RECTAL 12/02/16 02:30 12/02/16 02:31 Family History CAD Breast cancer Social History She continues to smoke. She denies alcohol. She has not used drugs in about 7 years. Physical Exam Vital Signs Vital Signs Date Time Temp Pulse Resp B/P Pulse Ox O2 Delivery O2 Flow Rate FiO2 12/01/16 19:47 97.4 67 16 161/69 97 Room Air Physical Exam GENERAL: Chronically ill-appearing female. SKIN: Focused skin assessment warm/dry. HEAD: Normocephalic. EYES: No scleral icterus. No injection or drainage. NECK: Supple, trachea midline. No JVD or lymphadenopathy. CARDIOVASCULAR: Regular rate and rhythm without murmurs, gallops, or rubs. RESPIRATORY: Breath sounds equal bilaterally. No accessory muscle use. GASTROINTESTINAL: Distended. Abdomen soft, diffusely tender. Decreased bowel sounds. MUSCULOSKELETAL: No cyanosis. TR edema. BACK: Nontender without obvious deformity. No CVA tenderness. PSYCH: Flattened affect. Laboratory Laboratory Tests Test 12/01/16 20:35 White Blood Count 6.7 Red Blood Count 3.81 Hemoglobin 10.7 Hematocrit 33.3 Mean Corpuscular Volume 87.4 Mean Corpuscular Hemoglobin 28.1 Mean Corpuscular Hemoglobin 32.2 Concent Red Cell Distribution Width 15.3 Platelet Count 158 Mean Platelet Volume 9.5 Neutrophils (%) (Auto) 72.4 Lymphocytes (%) (Auto) 16.1 Monocytes (%) (Auto) 9.8 Eosinophils (%) (Auto) 0.3 Basophils (%) (Auto) 1.4 Neutrophils # (Auto) 4.9 Lymphocytes # (Auto) 1.1 Monocytes # (Auto) 0.7 Eosinophils # (Auto) 0.0 Basophils # (Auto) 0.1 CBC Comment DIFF FINAL Differential Comment Sodium Level 125 Potassium Level 4.1 Chloride Level 86 Carbon Dioxide Level 25.9 Anion Gap 13 Blood Urea Nitrogen 18 Creatinine 5.21 Estimat Glomerular Filtration 9 Rate Random Glucose 111 Calcium Level 8.5 Total Bilirubin 0.5 Aspartate Amino Transf 65 (AST/SGOT) Alanine Aminotransferase 27 (ALT/SGPT) Alkaline Phosphatase 128 Total Protein 7.1 Albumin 3.2 Lipase 108 Result Diagram: 12/01/16203412/01/162034 Imaging Last Impressions Abdomen/Pelvis CT 12/01/162015 Signed Impressions: Service Date/Time: Thursday, December 01, 2016 22:20 - CONCLUSION: 1. Moderate size right pleural effusion remains with consolidation in the right lung base. 2. Nonspecific, nonobstructive bowel gas pattern most consistent with a mild ileus. 3. Small atrophic kidneys again noted with benign calcifications. 4. Moderate amount of ascitic fluid. 5. Decrease in size in the hematoma in the left gluteal region. 6. Anasarca again noted. Bola Faustin MD Assessment and Plan Assessment and Plan Ileus The patient says she has not had a bowel movement in 1-2 weeks. She is passing gas. She has associated nausea and vomiting and abdominal pain. CT of the abdomen showed: Moderate sized right pleural effusion with consolidation in the right lung base; Nonspecific, nonobstructive bowel gas pattern most consistent with a mild ileus; Moderate amount of ascitic fluid; Decrease in size in the hematoma in the left gluteal region. - keep the pt NPO. - enema x 1. - PPI. - GI consult if no improvement. ESRD On dialysis M/W/F. - consult nephrology for resumption of dialysis. Hyponatremia Likely hypervolemic in the setting of ESRD. - dialysis as above. - follow BMP. - fluid restriction if needed. Anemia Likely s/t renal disease. Hgb is at baseline. - follow CBC. - Epo with dialysis as indicated. HTN Likely s/t renal disease and abdominal pain. - pain control as needed. - resume home meds. Bipolar disorder Mood seems stable. - continue home medications. PPx: Heparin; PPI. Code Status DNR Discussed Condition With Pt, Evonne Mccauley, nurse. Bola Calvillo DO December 02, 2016 02:49
[2016-12-02] MEDS ORDERED: cloNIDine HCL 0.1 MG TAB PO PRN ×2 (03:00→16:30)
[2016-12-02] MEDS: HEPARIN SODIUM - SQ 10,000 UNITS/ML VIAL SQ SCH ×3 (05:31→20:21)
[2016-12-02] MEDS ORDERED: BISACODYL 10 MG SUPP RECTAL ONE ×2 (08:00→16:30)
[2016-12-02] MEDS ORDERED: GABAPENTIN 100 MG CAP PO SCH (09:00)
--- NOTE | 2016-12-02 09:13 | RADRPT ---
EXAM DATE/TIME: 12/02/2016 08:48 [facility] COMPARISON: No previous studies available for comparison. INDICATIONS : Constipation. Abdominal pain. No bowel movement x 2 weeks. MEDICAL HISTORY : Chronic obstructive pulmonary disease. Renal failure, chronic. Emphysema. Dialysis.Diabetic. SURGICAL HISTORY : section. AV Shunt. Iliac stent. ENCOUNTER: Subsequent ACUITY: 2 weeks PAIN SCORE: 6/10 LOCATION: entire abdomen. FINDINGS: There are bilateral vascular stents overlying the pelvis. A large amount of stool is seen throughout the colon consistent with the clinical history of constipation. No abnormal calcifications. Osseous s tructures are intact. CONCLUSION: Large amount of stool is present. Rasta Howe MD on December 02, 2016 at 9:11 Board Certified Radiologist. This report was verified electronically.
--- NOTE | 2016-12-02 10:23 | HHI.PR ---
Subjective Remarks Follow-up for abdominal pain. The patient reports no BM in one week. She states the nausea has improved. She is hungry and would like to eat. She is passing gas. She is due for dialysis today. Discussed with RN, no enema given yet. Objective Vitals Vital Signs Date Time Temp Pulse Resp B/P Pulse Ox O2 Delivery O2 Flow Rate FiO2 12/02/16 09:39 100 Nasal Cannula 3.00 12/02/16 07:18 97.4 60 16 142/65 100 12/02/16 05:06 97.6 56 20 151/65 100 12/02/16 04:08 66 16 137/69 97 Nasal Cannula 3 12/02/16 03:40 93 12/01/16 19:47 97.4 67 16 161/69 97 Room Air Result Diagram: 12/01/16203412/01/162034 Imaging Last Impressions Abdomen X-Ray 12/02/16 0000 Signed Impressions: Service Date/Time: Friday, December 02, 2016 08:48 - CONCLUSION: Large amount of stool is present. Rasta Howe MD Abdomen/Pelvis CT 12/01/162015 Signed Impressions: Service Date/Time: Thursday, December 01, 2016 22:20 - CONCLUSION: 1. Moderate size right pleural effusion remains with consolidation in the right lung base. 2. Nonspecific, nonobstructive bowel gas pattern most consistent with a mild ileus. 3. Small atrophic kidneys again noted with benign calcifications. 4. Moderate amount of ascitic fluid. 5. Decrease in size in the hematoma in the left gluteal region. 6. Anasarca again noted. Bola Faustin MD Objective Remarks GENERAL: Well-developed well-nourished. In no acute distress. SKIN: Warm and dry. Left chest aVF. HEENT: Normocephalic. Pupils equal and round. Mucous membranes pink and moist. CARDIOVASCULAR: Regular rate and rhythm. No murmur appreciated. RESPIRATORY: No accessory muscle use. Clear to auscultation. Breath sounds equal bilaterally. GASTROINTESTINAL: Abdomen soft, mild generalized tenderness, nondistended. Decreased bowel sounds. MUSCULOSKELETAL: No obvious deformities. No clubbing or cyanosis. No edema. NEUROLOGICAL: Awake and alert. No focal neurological deficits. Moves upper and lower extremities spontaneously. Normal speech. PSYCHIATRIC: Appropriate mood and flat affect; insight and judgment normal. A/P Assessment and Plan Constipation/obstipation with possible mild ileus The patient says she has not had a bowel movement in 1-2 weeks. She is passing gas. She has associated nausea and vomiting and abdominal pain. Reviewed: CT of the abdomen showed: Moderate sized right pleural effusion with consolidation in the right lung base; Nonspecific, nonobstructive bowel gas pattern most consistent with a mild ileus; Moderate amount of ascitic fluid; Decrease in size in the hematoma in the left gluteal region. Check KUB which shows a large amount of stool. - Clear liquids as tolerated for now - Dulcolax suppository and enema x 1. - Start Katalina-Colace - PPI. - GI consult if no improvement. ESRD On dialysis M/W/F. - consulted patient's meteorology instructor for resumption of dialysis. - Caution with nephrotoxic agents including magnesium containing laxatives Hyponatremia Likely hypervolemic in the setting of ESRD. - dialysis as above. - follow BMP. - fluid restriction if needed. Anemia, normocytic Likely s/t renal disease. Hgb is at baseline. - follow CBC. - Epo with dialysis as indicated. HTN Likely s/t renal disease and abdominal pain. Reasonably controlled. - Continue home meds. Bipolar disorder Mood seems stable. - continue home medications. PPx: Heparin; PPI. Discharge Planning Monitor for clinical improvement. Jayson Salazar December 02, 2016 10:23
[2016-12-02 10:24] LABS: ALT (GPT) 22 U/L (10-53); ANION GAP 11 MEQ/L (5-15); AST (GOT) 24 U/L (15-37); BICARBONATE 28.7 MEQ/L (21.0-32.0); BLOOD UREA NITROGEN 19 MG/DL (7-18); CHLORIDE 86 MEQ/L (98-107); GLOMERULAR FILTRATION RATE 8 ML/MIN (>89); POTASSIUM 3.5 MEQ/L (3.5-5.1); SODIUM (NA) 126 MEQ/L (136-145)
[2016-12-02 10:25] LABS: ALKALINE PHOSPHATASE 132 U/L (45-117); TOTAL BILIRUBIN ADULT 0.7 MG/DL (0.2-1.0)
[2016-12-02] MEDS: CINACALCET HYDROCHLORIDE 30 MG TAB PO SCH (10:38)
[2016-12-02] MEDS: BENZTROPINE MESYLATE 2 MG TAB PO SCH ×2 (10:38→20:20)
[2016-12-02] MEDS: GABAPENTIN 100 MG CAP PO SCH (10:39)
[2016-12-02] MEDS: CLOPIDOGREL 75 MG TAB PO SCH (10:39)
[2016-12-02] MEDS: METOCLOPRAMIDE HCL SYRUP 10 MG/10 ML UDC PO SCH ×3 (10:39→17:20)
[2016-12-02] MEDS: VITAMIN B CMPLX/VITC/FOLIC AC CAP PO SCH (10:39)
[2016-12-02] MEDS: ESCITALOPRAM OXALATE 10 MG TAB PO SCH (10:40)
[2016-12-02] MEDS: DOCUSATE SODIUM 50 MG/SENNA 8.6 MG TAB PO SCH ×2 (10:40→20:21)
[2016-12-02] MEDS: LOSARTAN 50 MG TAB PO SCH (10:40)
[2016-12-02] MEDS: PANTOPRAZOLE SODIUM 40 MG VIAL IV PUSH SCH (12:40)
[2016-12-02] MEDS: SODIUM CHLORIDE 0.9% FLUSH 10 ML FLUSH IV FLUSH SCH ×2 (12:41→21:00)
[2016-12-02] MEDS ORDERED: SODIUM CHLOR 0.9% 1000 ML INJ 1,000 ML IV PRN ×3 (16:23)
[2016-12-02] MEDS ORDERED: diphenhydrAMINE HCL 25 MG CAP PO PRN (16:30)
[2016-12-02] MEDS ORDERED: MANNITOL 12.5 GM/50 ML VIAL IV PRN (16:30)
[2016-12-02] MEDS ORDERED: HEPARIN SODIUM - IV 10,000 UNITS/10 ML VIAL IVF PRN (16:30)
[2016-12-02] MEDS ORDERED: HEPARIN SODIUM - IV 10,000 UNITS/10 ML VIAL PRN (16:30)
[2016-12-02] MEDS ORDERED: ALBUMIN HUMAN 25% 25 GM/100 ML BAGP IV PRN (16:30)
[2016-12-02] MEDS ORDERED: EPOETIN ALFA 10,000 UNITS/ML VIAL IV PRN (16:30)
[2016-12-02] MEDS ORDERED: GENTAMICIN SULFATE (DIALYSIS USE ONLY) 20 MG/2 ML VIAL IV PRN (16:30)
[2016-12-02] MEDS ORDERED: ONDANSETRON HCL 4 MG/2 ML VIAL IV PRN (16:30)
[2016-12-02] MEDS ORDERED: NITROGLYCERIN 0.4 MG SL 25 TABS/BTL SL PRN (16:30)
[2016-12-02] MEDS: LURASIDONE 40 MG TAB PO SCH (17:11)
[2016-12-02] MEDS: traZODone HCL 50 MG TAB PO SCH (20:21)
[2016-12-02] MEDS: ATORVASTATIN 20 MG TAB PO SCH (20:21)
--- NOTE | 2016-12-02 22:27 | MB ---
cc: KYM SALAMANCA MD DATE OF CONSULTATION 12/02/2016 REASON FOR CONSULTATION End-stage renal disease on hemodialysis for management. HISTORY OF PRESENT ILLNESS This is a 51-year-old female with past medical history of chronic obstructive pulmonary disease, hypertension, history of anxiety, chronic anemia, end-stage renal disease on hemodialysis for more than 10 years came to the hospital with complaint of constipation, nausea and vomiting. I was called to see the patient for the management of hemodialysis. The patient has been following with Dr. Vinson. The patient has this abdominal pain started about two weeks ago, associated with some nausea. She has severe constipation. She had tried different things at home but it did not work. She does not have any history of fever. She has nausea most of the time with occasional vomiting. Abdominal pain associated with some distension. She denies any shortness of breath. She is currently now on nasal cannula at 3 liters. PAST MEDICAL HISTORY 1. Hypertension. 2. Chronic obstructive pulmonary disease. 3. Bipolar disorder. 4. End-stage renal disease on hemodialysis, PAST SURGICAL HISTORY 1. History of AV graft in the left upper chest. 2. Ovarian cyst removal. 3. section. REVIEW OF SYSTEMS The patient has generalized weakness, feeling tired. Denies any history of fever. No sore throat. She has mild shortness of breath. No cough. No chest pain. No palpitation. She has nausea and occasional vomiting associated with abdominal distension and pain is mainly in the mid abdomen and she has severe constipation. SOCIAL HISTORY The patient is and lives with her . She has past history of using cocaine and marijuana. She still smokes about half-pack per day. No heavy alcoholism. FAMILY HISTORY Noncontributory. ALLERGIES She has no known drug allergies. MEDICATIONS She is on: 1. Katalina-Colace one tablet b.i.d. 2. Nephrocaps one capsule daily. 3. Plavix 75 mg daily. 4. Lexapro 10 mg once a day. 5. Cozaar 50 mg daily. 6. Sensipar 60 mg once a day. 7. Latuda 40 mg with dinner. 8. Lipitor 20 mg q.h.s. 9. Cogentin 2 milligrams q.12h. 10. Gabapentin 300 milligrams q.24h. 11. Protonix 40 mg q. 24-hour. 12. Heparin subcu 5000 units q. 8-hour. 13. Zofran as needed. PHYSICAL EXAMINATION GENERAL: The patient is awake and alert. She is not in acute distress. VITAL SIGNS: The last blood pressure was 150/65, temperature 97.8. Oxygen saturation 95-97%. HEENT: Pupils equally reactive to light. Nonicteric sclerae. Conjunctivae pale. NECK: Supple. JVD is not elevated. LUNGS: The patient has bilateral decreased air entry with mixed basal rales and scattered wheezing. HEART: S1-S2. Regular rhythm. ABDOMEN: Soft. Lax. There is distention and mild tenderness in the epigastrium and umbilicus. There is no rebound or rigidity. Bowel sounds positive. EXTREMITIES: She has mild edema in the legs. Left upper chest has an A-V fistula with good bruit. LABORATORY DATA Investigations, WBC count is 6.7, hemoglobin 10.7, platelet count 158, neutrophils 72.4%. Sodium 126. Potassium 3.5, chloride 86, bicarb 28.7, BUN 19, creatinine 5.47. AST is 24, ALT is 22, alkaline phosphatase 132, total protein 7.2. Albumin 3.4. INR is 1.1. IMAGING STUDIES The patient has abdomen and pelvis CT scan done last night and it shows a moderate-sized right pleural effusion with consolidation in the right base, nonspecific bowel gas pattern. Atrophic kidneys. Moderate amount of ascites. Decrease in size in the hematoma on the left gluteal region. Anasarca. Abdominal x-ray was done which shows that the large amount of stool is present. ASSESSMENT AND PLAN 1. Constipation and impacted stool. 2. Mild ileus. 3. End-stage renal disease on hemodialysis. 4. Hypertension. 5. Hyponatremia. 6. Anemia. 7. Bipolar disorder. The patient has been given the enema and so far she does not have any improvement. There is no bowel movement. She probably will need GI to see the patient. She is due for dialysis today but her potassium was low and she is not in gross fluid overload status and saturating okay on 3 liters, so I will hold that for tonight and I spoke to the dialysis to do her in the morning first shift. Her hemoglobin is 10.7. I will give her maintenance dose of Epogen. Thank you for the consultation and I will follow the patient while she is in the hospital. Kym Salamanca MD AQJ/KK /4:17 PM /10:09 PM
[2016-12-03 01:18] VITALS: BP 148/68; PULSE 77; RESP 18; TEMP 98; O2SAT 97
[2016-12-03] MEDS: HEPARIN SODIUM - SQ 10,000 UNITS/ML VIAL SQ SCH ×3 (06:20→22:47)
[2016-12-03 07:58] VITALS: BP 150/65; PULSE 62; RESP 16; TEMP 97.6; O2SAT 97
--- NOTE | 2016-12-03 08:27 | RADRPT ---
EXAM DATE/TIME: 12/03/2016 07:28 [facility] COMPARISON: CT ABDOMEN & PELVIS W/O CONTRAST, December 01, 2016, 22:20. ABDOMEN KUB ONLY, December 02, 2016, 8:48. INDICATIONS : Ileus. MEDICAL HISTORY : Chronic obstructive pulmonary disease. Renal failure, acute. ESRD on dialysis. SURGICAL HISTORY : None. ENCOUNTER: Initial ACUITY: 3 days PAIN SCORE: 3/10 LOCATION: Bilateral abdomen FINDINGS: Single supine frontal view of the abdomen demonstrates a nonobstructive bowel gas pattern. There is a ir within the colon as well as a large amount of stool in the transverse and left colon. No organomeg julisa or abnormal calcifications are appreciated. There is some type of the stents overlying the pelvis bilaterally. Bones demonstrate no acute finding. There is a small right basilar pleural-parenchymal opacity with slight blunting of the left costophrenic sulcus. CONCLUSION: 1. There is a nonobstructive bowel gas pattern. Additionally, there are no findings to suggest ileus. 2. Small right pleural effusion with associated compressive atelectasis. There is also trace left ple ural fluid. Augustin Palomino MD on December 03, 2016 at 8:23 Board Certified Radiologist. This report was verified electronically.
[2016-12-03] MEDS: SODIUM CHLORIDE 0.9% FLUSH 10 ML FLUSH IV FLUSH SCH ×2 (08:40→22:45)
[2016-12-03] MEDS: VITAMIN B CMPLX/VITC/FOLIC AC CAP PO SCH (08:40)
[2016-12-03] MEDS: PANTOPRAZOLE SODIUM 40 MG VIAL IV PUSH SCH (08:41)
[2016-12-03] MEDS: METOCLOPRAMIDE HCL SYRUP 10 MG/10 ML UDC PO SCH ×3 (08:41→17:54)
[2016-12-03] MEDS: GABAPENTIN 100 MG CAP PO SCH (08:41)
[2016-12-03] MEDS: BENZTROPINE MESYLATE 2 MG TAB PO SCH ×2 (08:42→22:47)
[2016-12-03] MEDS: LOSARTAN 50 MG TAB PO SCH (08:42)
[2016-12-03] MEDS: ESCITALOPRAM OXALATE 10 MG TAB PO SCH (08:42)
[2016-12-03] MEDS: DOCUSATE SODIUM 50 MG/SENNA 8.6 MG TAB PO SCH ×2 (08:42→22:46)
[2016-12-03] MEDS: CINACALCET HYDROCHLORIDE 30 MG TAB PO SCH (09:05)
[2016-12-03] MEDS: CLOPIDOGREL 75 MG TAB PO SCH (09:05)
--- NOTE | 2016-12-03 13:27 | HHI.PR ---
Subjective Remarks Follow-up for abdominal pain and constipation. The patient is seen after dialysis today. I discussed with the RN yesterday who states that the patient had a bowel movement, but first the bowel movement prior to RN witnessing it. The patient states that yesterday she tried to have a bowel movement and only had mucus coming out. She denies having any stool. Discussed with RN today to perform enema as previously ordered. The patient continues to have abdominal discomfort, but denies any abdominal distention. Objective Vitals Vital Signs Date Time Temp Pulse Resp B/P Pulse Ox O2 Delivery O2 Flow Rate FiO2 12/03/16 07:58 97.6 62 16 150/65 97 12/03/16 01:18 98.0 77 18 148/68 97 12/02/16 20:35 97.8 61 18 156/70 100 12/02/16 15:54 97.8 61 18 150/65 97 I/O 12/02/16 12/02/16 12/02/16 12/03/16 12/03/16 12/03/16 07:00 15:00 23:00 07:00 15:00 23:00 Intake Total 840 ml Balance 840 ml Intake Oral 840 ml # Bowel Movements 1 Result Diagram: 12/01/16 2035 12/02/16 0755 Imaging Last Impressions Abdomen X-Ray 12/03/16 0700 Signed Impressions: Service Date/Time: November 07:28 - CONCLUSION: 1. There is a nonobstructive bowel gas pattern. Additionally, there are no findings to suggest ileus. 2. Small right pleural effusion with associated compressive atelectasis. There is also trace left pleural fluid. Augustin Palomino MD Abdomen/Pelvis CT 12/01/162015 Signed Impressions: Service Date/Time: Thursday, December 01, 2016 22:20 - CONCLUSION: 1. Moderate size right pleural effusion remains with consolidation in the right lung base. 2. Nonspecific, nonobstructive bowel gas pattern most consistent with a mild ileus. 3. Small atrophic kidneys again noted with benign calcifications. 4. Moderate amount of ascitic fluid. 5. Decrease in size in the hematoma in the left gluteal region. 6. Anasarca again noted. Bola Faustin MD Objective Remarks GENERAL: Well-developed well-nourished. In no acute distress. SKIN: Warm and dry. Left chest aVF. HEENT: Normocephalic. Pupils equal and round. Mucous membranes pink and moist. CARDIOVASCULAR: Regular rate and rhythm. No murmur appreciated. RESPIRATORY: No accessory muscle use. Clear to auscultation. Breath sounds equal bilaterally. GASTROINTESTINAL: Abdomen with mild generalized tenderness, mildly distended but soft. Bowel sounds present. MUSCULOSKELETAL: No obvious deformities. No clubbing or cyanosis. No edema. NEUROLOGICAL: Awake and alert. No focal neurological deficits. Moves upper and lower extremities spontaneously. Normal speech. PSYCHIATRIC: Appropriate mood and flat affect; insight and judgment normal. A/P Assessment and Plan Constipation/obstipation with possible mild ileus The patient says she has not had a bowel movement in 1-2 weeks. She is passing gas. She has associated nausea and vomiting and abdominal pain. Reviewed: CT of the abdomen showed: Moderate sized right pleural effusion with consolidation in the right lung base; Nonspecific, nonobstructive bowel gas pattern most consistent with a mild ileus; Moderate amount of ascitic fluid; Decrease in size in the hematoma in the left gluteal region. Checked serial KUBs which showed nonspecific bowel gas and a large amount of stool. - Clear liquids as tolerated for now - Give enema x 1. - Continue Katalina-Colace - PPI. - GI consult if no improvement. ESRD On dialysis M/W/F. - consulted nephrology for resumption of dialysis. - Caution with nephrotoxic agents including magnesium containing laxatives Hyponatremia Likely hypervolemic in the setting of ESRD. - dialysis as above. - follow BMP. - fluid restriction if needed. Anemia, normocytic Likely s/t renal disease. Hgb is at baseline. - follow CBC. - Epo with dialysis as indicated. HTN Likely s/t renal disease and abdominal pain. Reasonably controlled. - Continue home meds. Bipolar disorder Mood seems stable. - continue home medications. PPx: Heparin; PPI. Discharge Planning Monitor for clinical improvement. Jayson Salazar December 03, 2016 13:27
[2016-12-03 15:34] VITALS: BP 154/67; PULSE 70; RESP 16; TEMP 98.2; O2SAT 96
--- NOTE | 2016-12-03 16:26 | PD.CONS ---
HPI History of Present Illness This is a 51 year old [lady] with ESRD who presented to the ER Wednesday with abdominal pain and constipation. The pain was 10/10 in her belly, she will not further qualify. She has not had a BM in a week or 2, she is not sure. This happens sometimes. She did not take anything for the constipation. Denies n/v. Never had colonoscopy. Pt too somnolent to contribute further, despite my efforts to rouse her. (Jaycee Chamorro) PFSH Past Medical History ESRD Bipolar disorder HTN HLP COPD Hx of cocaine/THC use A/V shunt X 3 Ovarian cyst drainage Past Surgical History says she has had 3 surgeries but does not know what they were (Jaycee Chamorro) Coded Allergies: No Known Allergies (Unverified , 12/01/16) Family History CAD Breast cancer Social History She continues to smoke- 3 cigarettes daily. She denies alcohol. She has not used drugs in about 7 years. (Jaycee Chamorro) Review of Systems Constitutional: DENIES: Fever Eyes: DENIES: Blurred vision Ears, nose, mouth, throat: DENIES: Hearing loss Respiratory: COMPLAINS OF: Cough Cardiovascular: DENIES: Chest pain Gastrointestinal: COMPLAINS OF: Abdominal pain, Constipation, DENIES: Black stools, Bloody stools, Diarrhea, Nausea, Vomiting Musculoskeletal: DENIES: Joint pain Integumentary: DENIES: Rash Neurologic: DENIES: Abnormal gait Psychiatric: DENIES: Confusion (Jaycee Chamorro) GI Exam Vitals I&O Vital Signs Date Time Temp Pulse Resp B/P Pulse Ox O2 Delivery O2 Flow Rate FiO2 12/03/16 15:34 98.2 70 16 154/67 96 12/03/16 07:58 97.6 62 16 150/65 97 12/03/16 01:18 98.0 77 18 148/68 97 12/02/16 20:35 97.8 61 18 156/70 100 I/O 12/02/16 12/02/16 12/02/16 12/03/16 12/03/16 12/03/16 07:00 15:00 23:00 07:00 15:00 23:00 Intake Total 840 ml Balance 840 ml Intake Oral 840 ml # Bowel Movements 1 Imaging Last Impressions Abdomen X-Ray 12/03/16 0700 Signed Impressions: Service Date/Time: November 07:28 - CONCLUSION: 1. There is a nonobstructive bowel gas pattern. Additionally, there are no findings to suggest ileus. 2. Small right pleural effusion with associated compressive atelectasis. There is also trace left pleural fluid. Augustin Palomino MD Abdomen/Pelvis CT 12/01/162015 Signed Impressions: Service Date/Time: Thursday, December 01, 2016 22:20 - CONCLUSION: 1. Moderate size right pleural effusion remains with consolidation in the right lung base. 2. Nonspecific, nonobstructive bowel gas pattern most consistent with a mild ileus. 3. Small atrophic kidneys again noted with benign calcifications. 4. Moderate amount of ascitic fluid. 5. Decrease in size in the hematoma in the left gluteal region. 6. Anasarca again noted. Bola Faustin MD Physical Examination HEENT: EOMI; normocephalic; atraumatic; no jaundice. CHEST: rhonchi, take deep respiration w/o coughing CARDIAC: RRR ABDOMEN: Soft, nondistended, nontender; no hepatosplenomegaly; bowel sounds are present in all four quadrants. EXTREMITIES: No clubbing, cyanosis, or edema. SKIN: Normal; no rash; no jaundice. EXPLOSIVE EXPERT: somnolent (Jaycee Chamorro) Assessment and Plan Plan ASSESSMENT - abdominal pain, constipation - pt has not had BM in 1-2 weeks (pt not sure). She is having abd pain. Has not tried any interventions. D/W PA and said she had enema today but only returned water. We will do colonoscopy tomorrow with Jennifer. PLAN - colonoscopy in am - [facility] - obtain consents - clears today - NPO after midnight - consider bowel regimen at home - Further recommendations to follow procedure findings This pt seen by myself and Bear and this note is written on his behalf ( Jaycee Chamorro) Physician Comments Patient seen and examined Agree with above Continue with current supportive care Monitor labs Plan for colonoscopy tomorrow (Christian Jasso MD) Jaycee Chamorro December 03, 2016 16:26 Christian Jasso MD December 03, 2016 18:04
--- NOTE | 2016-12-03 17:37 | HHI.NPPN ---
Subjective History of Present Illness 51-year-old female with past medical history of chronic obstructive pulmonary disease, hypertension, history of anxiety, chronic anemia, end-stage renal disease on hemodialysis for more than 10 years came to the hospital with complaint of constipation, nausea and vomiting. I was called to see the patient for the management of hemodialysis. Additional Remarks Patient is alert, no SOB, still has no BM. Review of Systems Gastrointestinal Gastrointestinal: Abdominal Pain, Constipation Objective Data Data 12/02/16 12/03/16 19:00 07:00 Intake Total 720 ml 120 ml Balance 720 ml 120 ml Intake Oral 720 ml 120 ml # Bowel Movements 1 Vital Signs Date Time Temp Pulse Resp B/P Pulse Ox O2 Delivery O2 Flow Rate FiO2 12/03/16 15:34 98.2 70 16 154/67 96 12/03/16 07:58 97.6 62 16 150/65 97 12/03/16 01:18 98.0 77 18 148/68 97 12/02/16 20:35 97.8 61 18 156/70 100 -: 12/01/16 2035 12/02/16 0755 Physical Exam General Appearance: No Acute Distress, Comfortable Eyes Eye Exam: Pupils Equal Throat Throat Exam: Oral Mucosa [place] & Moist Neck Neck Exam: Neck Supple, Trachea Midline Pulmonary Resp Exam: Breath Sounds Equal, No Distress, Decreased Bases Cardiology CV Exam: Regular, Normal Sinus Rhythm Gastrointestinal/Abdomen GI Exam: Soft, Non-Tender, Bowel Sounds Present, Distended Extremeties Extremities Exam: Trace Edema Neurologic Neuro Exam: Alert, Awake, Oriented Psychiatric Psych Exam: Appropriate Responses Assessment/Plan Assessment Summary: Anemia of CKD, Hypertension, End Stage Renal Disease Problem List: (1) HTN (hypertension) (2) Bipolar disorder (3) Anemia (4) Hyponatremia (5) Constipation (6) ESRD (end stage renal disease) Plan Patient has HD done in AM. BP is stable. Still has no BMP. Repeat Abd. x-ray noted. To get another enema. HD will be again in AM. Problem Qualifiers (1) HTN (hypertension): Qualified Code: I10 - Essential hypertension (2) Anemia: Jessica Colin MD December 03, 2016 17:37
[2016-12-03] MEDS: LURASIDONE 40 MG TAB PO SCH (17:54)
[2016-12-03] MEDS ORDERED: PEG (High)/E-LYTE SOLN 4000 ML BTL PO ONE (18:15)
[2016-12-03 20:01] VITALS: BP 139/63; PULSE 69; RESP 20; TEMP 98.8; O2SAT 93
[2016-12-03 20:55] VITALS: O2SAT 92
[2016-12-03] MEDS: ATORVASTATIN 20 MG TAB PO SCH (22:46)
[2016-12-03] MEDS: traZODone HCL 50 MG TAB PO SCH (22:47)
[2016-12-04] VITALS (10 sets, daily range): BP systolic 138–163; BP diastolic 52–79; PULSE 56–80; RESP 16–20; TEMP 96.3–98.1; O2SAT 87–100
[2016-12-04] MEDS: HEPARIN SODIUM - SQ 10,000 UNITS/ML VIAL SQ SCH (06:00)
--- NOTE | 2016-12-04 07:45 | RADRPT ---
EXAM DATE/TIME: 12/04/2016 07:21 [place] COMPARISON: No previous studies available for comparison. INDICATIONS : Shortness of breath. MEDICAL HISTORY : Chronic obstructive pulmonary disease. SURGICAL HISTORY : None. ENCOUNTER: Subsequent ACUITY: 4 - 6 days PAIN SCORE: 0/10 LOCATION: Bilateral chest FINDINGS: Mild/moderate right and mild left basilar atelectasis with pleural effusions again noted, not signifi cant changed. No pneumothorax. Heart size stable, upper limits of normal. CONCLUSION: No significant change right greater than left basilar consolidation and effusions. Augustin Hall MD on December 04, 2016 at 7:43 Board Certified Radiologist. This report was verified electronically.
[2016-12-04] MEDS: CLOPIDOGREL 75 MG TAB PO SCH (09:00)
--- NOTE | 2016-12-04 09:55 | HHI.PR ---
Subjective Remarks Follow-up for constipation and shortness of breath. The patient states she is going for colonoscopy today. She states that she's been having bowel movements all morning after doing bowel prep. She does report that her abdominal discomfort has improved a little. She denies any nausea. She does state that occasionally she gets short of breath. She was noted to be hypoxic overnight. She denies any cough. She reports a history of COPD. She denies being on home oxygen. Objective Vitals Vital Signs Date Time Temp Pulse Resp B/P Pulse Ox O2 Delivery O2 Flow Rate FiO2 12/04/16 09:11 97.9 56 18 138/52 95 12/04/16 05:25 98 Nasal Cannula 2.00 12/04/16 04:09 98.1 80 20 163/74 87 12/04/16 00:06 98.1 73 16 140/71 96 12/03/16 20:55 92 21 12/03/16 20:01 98.8 69 20 139/63 93 12/03/16 15:34 98.2 70 16 154/67 96 Result Diagram: 12/01/16 2035 12/02/16 0755 Imaging Last Impressions Chest X-Ray 12/04/16 0000 Signed Impressions: Service Date/Time: Sunday, December 04, 2016 07:21 - CONCLUSION: No significant change right greater than left basilar consolidation and effusions. Augustin Hall MD Abdomen X-Ray 12/03/16 0700 Signed Impressions: Service Date/Time: November 07:28 - CONCLUSION: 1. There is a nonobstructive bowel gas pattern. Additionally, there are no findings to suggest ileus. 2. Small right pleural effusion with associated compressive atelectasis. There is also trace left pleural fluid. Augustin Palomino MD Abdomen/Pelvis CT 12/01/16 2016 Signed Impressions: Service Date/Time: Thursday, December 01, 2016 22:20 - CONCLUSION: 1. Moderate size right pleural effusion remains with consolidation in the right lung base. 2. Nonspecific, nonobstructive bowel gas pattern most consistent with a mild ileus. 3. Small atrophic kidneys again noted with benign calcifications. 4. Moderate amount of ascitic fluid. 5. Decrease in size in the hematoma in the left gluteal region. 6. Anasarca again noted. Bola Faustin MD Objective Remarks GENERAL: Well-developed well-nourished. In no acute distress. SKIN: Warm and dry. Left chest AVF. HEENT: Normocephalic. Pupils equal and round. Mucous membranes pink and moist. CARDIOVASCULAR: Regular rate and rhythm. No murmur appreciated. RESPIRATORY: No accessory muscle use. Clear to auscultation. Diminished breath sounds. No wheezing or crackles. GASTROINTESTINAL: Abdomen nontender, mildly distended but soft. Bowel sounds present but diminished. MUSCULOSKELETAL: No obvious deformities. No clubbing or cyanosis. No edema. NEUROLOGICAL: Awake and alert. No focal neurological deficits. Moves upper and lower extremities spontaneously. Normal speech. PSYCHIATRIC: Appropriate mood and flat affect; insight and judgment fair to normal. A/P Problem List: (1) ESRD (end stage renal disease) ICD Code: N18.6 Status: Chronic (2) Constipation ICD Code: K59.00 Status: Acute (3) Ileus ICD Code: K56.7 Status: Resolved (4) Hypoxia ICD Code: R09.02 Status: Acute (5) Pneumonia ICD Code: J18.9 Status: Acute Assessment and Plan Constipation/obstipation with possible mild ileus The patient says she has not had a bowel movement in 1-2 weeks. She is passing gas. She has associated nausea and vomiting and abdominal pain. Reviewed: CT of the abdomen showed: Moderate sized right pleural effusion with consolidation in the right lung base; Nonspecific, nonobstructive bowel gas pattern most consistent with a mild ileus; Moderate amount of ascitic fluid; Decrease in size in the hematoma in the left gluteal region. Checked serial KUBs which showed nonspecific bowel gas and a large amount of stool. - No improvement after enema - Continue Katalina-Colace - PPI. - GI consulted, recommended bowel prep and colonoscopy - Symptoms seeming to improve after bowel prep - Diet per GI Pneumonia/hypoxia Reviewed: O2 saturation 87% overnight. Chest x-ray with bibasilar consolidation. Afebrile. - Incentive spirometry and Acapella - Scheduled and as needed nebs - Guaifenesin - Start renally adjusted Levaquin - Supplemental oxygen as needed. Consider walk test. ESRD On dialysis M/W/F. - consulted nephrology for resumption of dialysis. - Caution with nephrotoxic agents including magnesium containing laxatives Hyponatremia Likely hypervolemic in the setting of ESRD. - dialysis as above. - follow BMP. Anemia, normocytic Likely s/t renal disease. Hgb is at baseline. - follow CBC. - Epo with dialysis as indicated. HTN Likely s/t renal disease and abdominal pain. Reasonably controlled. - Continue home meds. Bipolar disorder Mood seems stable. - continue home medications. PPx: PPI. Hold heparin for GI procedure. Discharge Planning Admit to inpatient with pneumonia and hypoxia. Monitor for clinical improvement. Problem Qualifiers (1) Pneumonia: Qualified Code: J18.1 - Pneumonia of right lower lobe due to infectious organism Jayson Salazar December 04, 2016 09:55
[2016-12-04] MEDS ORDERED: LEVOFLOXACIN 750 MG TAB PO ONE (10:00)
[2016-12-04] MEDS ORDERED: RESP: ALBUTEROL 1.25 MG/3 ML NEB (PRN) NEB (10:00)
[2016-12-04] MEDS ORDERED: LACTATED RINGER'S 1,000 ML BAG IV ONE (10:20)
[2016-12-04] MEDS ORDERED: DEXTROSE 50% IN WATER 50 ML SYRINGE IV ONE (10:30)
[2016-12-04] MEDS ORDERED: NS 500 ML (EXCEL BAG) 500 ML BAG IV ONE (10:46)
[2016-12-04] MEDS ORDERED: PROPOFOL 200 MG/20 ML AMP IV ONE (10:46)
--- NOTE | 2016-12-04 11:08 | PD.PROCEDR ---
GI Procedure REFERRING PHYSICIAN Nora MIN PERFORMED Incomplete colonoscopy to the descending colon due to poor prep INDICATION FOR PROCEDURE Abdominal pain and constipation PROCEDURE: The procedure, risks and benefits were discussed with Ms. Cheema and informed consent was obtained. Anesthesia sedated her with Diprivan. She was placed in the left lateral decubitus position. Colonoscopy: The Pentax videoscope was introduced through the rectum and advanced to the descending colon. Retroflexion was performed in the rectum. Colonic prep was poor FINDINGS: Due to solid stools noted throughout the sigmoid and descending colon this evaluation was incomplete colonic mucosa appeared to be erythemic in the sigmoid and proximal rectal region biopsies were taken otherwise mucosa was unremarkable ESTIMATED BLOOD LOSS: None SPECIMENS REMOVED: Sigmoid samples COMPLICATIONS: None IMPRESSION: Incomplete colonoscopy Constipation Abdominal pain PLAN: Await biopsies Repeat colonoscopy tomorrow with an extra day of prep Christian Jasso MD December 04, 2016 11:08
[2016-12-04] MEDS ORDERED: PEG (High)/E-LYTE SOLN 4000 ML BTL PO ONE (11:15)
[2016-12-04] MEDS: METOCLOPRAMIDE HCL SYRUP 10 MG/10 ML UDC PO SCH ×3 (12:00→15:09)
[2016-12-04] MEDS: VITAMIN B CMPLX/VITC/FOLIC AC CAP PO SCH (12:26)
[2016-12-04] MEDS: DOCUSATE SODIUM 50 MG/SENNA 8.6 MG TAB PO SCH ×2 (12:27→21:35)
[2016-12-04] MEDS: PANTOPRAZOLE SODIUM 40 MG VIAL IV PUSH SCH (12:27)
[2016-12-04] MEDS: BENZTROPINE MESYLATE 2 MG TAB PO SCH ×2 (12:27→21:00)
[2016-12-04] MEDS: GABAPENTIN 100 MG CAP PO SCH (12:27)
[2016-12-04] MEDS: SODIUM CHLORIDE 0.9% FLUSH 10 ML FLUSH IV FLUSH SCH ×2 (12:27→21:35)
[2016-12-04] MEDS: LOSARTAN 50 MG TAB PO SCH (12:27)
[2016-12-04] MEDS: ESCITALOPRAM OXALATE 10 MG TAB PO SCH (12:27)
[2016-12-04] MEDS: guaiFENesin E.R. 600 MG TAB PO SCH ×2 (12:28→21:34)
[2016-12-04] MEDS: CINACALCET HYDROCHLORIDE 30 MG TAB PO SCH (12:34)
[2016-12-04 12:42] LABS: AUTOMATED NEUTROPHIL # 2.4 TH/MM3 (1.8-7.7); BASOPHIL % 1.3 % (0.0-2.0); EOSINOPHIL % 0.4 % (0.0-4.0); HEMATOCRIT 36.7 % (35.0-46.0); HEMO FLAGS DIFF FINAL; LYMPH % 21.3 % (9.0-44.0); LYMPHOCYTE # 0.8 TH/MM3 (1.0-4.8); MEAN CELL VOLUME 88.2 FL (80.0-100.0); MEAN CORPUSCULAR HEMOGLOBIN 27.6 PG (27.0-34.0); MEAN CORPUSCULAR HGB CONC 31.3 % (32.0-36.0); MONO % 13.7 % (0.0-8.0); NEUT % 63.3 % (16.0-70.0); PLATELET COUNT 127 TH/MM3 (150-450); RED BLOOD COUNT 4.17 MIL/MM3 (4.00-5.30); RED CELL DISTRIBUTION WIDTH 15.8 % (11.6-17.2); WHITE BLOOD COUNT 3.8 TH/MM3 (4.0-11.0)
[2016-12-04 13:14] LABS: BICARBONATE 31.9 MEQ/L (21.0-32.0); POTASSIUM 3.1 MEQ/L (3.5-5.1)
[2016-12-04] MEDS: RESP: ALBUTEROL 2.5 MG/IPRATROPIUM 0.5 MG NEB (SCH) NEB ×2 (13:21→20:07)
[2016-12-04 13:23] LABS: MAGNESIUM 2.1 MG/DL (1.5-2.5)
--- NOTE | 2016-12-04 13:26 | HHI.NPPN ---
Subjective History of Present Illness 51-year-old female with past medical history of chronic obstructive pulmonary disease, hypertension, history of anxiety, chronic anemia, end-stage renal disease on hemodialysis for more than 10 years came to the hospital with complaint of constipation, nausea and vomiting. I was called to see the patient for the management of hemodialysis. Additional Remarks Patient is alert, still has abd. distension and small amount of BM, no vomiting. Review of Systems Gastrointestinal Gastrointestinal: Abdominal Pain, Constipation Objective Data Data 12/03/16 12/04/16 19:00 07:00 # Voids 3 Vital Signs Date Time Temp Pulse Resp B/P Pulse Ox O2 Delivery O2 Flow Rate FiO2 12/04/16 13:21 100 Nasal Cannula 2.00 12/04/16 11:29 61 18 180/71 100 12/04/16 11:19 62 18 184/72 100 12/04/16 11:09 97.4 67 18 186/73 99 12/04/16 10:15 97.9 56 18 138/52 95 12/04/16 09:11 97.9 56 18 138/52 95 12/04/16 05:25 98 Nasal Cannula 2.00 12/04/16 04:09 98.1 80 20 163/74 87 12/04/16 00:06 98.1 73 16 140/71 96 12/03/16 20:55 92 21 12/03/16 20:01 98.8 69 20 139/63 93 12/03/16 15:34 98.2 70 16 154/67 96 -: 12/04/16 1218 12/04/16 1218 Physical Exam General Appearance: No Acute Distress, Comfortable Eyes Eye Exam: Pupils Equal Throat Throat Exam: Oral Mucosa [place] & Moist Neck Neck Exam: Neck Supple, Trachea Midline Pulmonary Resp Exam: Breath Sounds Equal, No Distress, Decreased Bases Cardiology CV Exam: Regular, Normal Sinus Rhythm Gastrointestinal/Abdomen GI Exam: Soft, Non-Tender, Bowel Sounds Present, Distended Extremeties Extremities Exam: Trace Edema Neurologic Neuro Exam: Alert, Awake, Oriented Psychiatric Psych Exam: Appropriate Responses Assessment/Plan Assessment Summary: Anemia of CKD, Hypertension, End Stage Renal Disease Problem List: (1) HTN (hypertension) (2) Bipolar disorder (3) Anemia (4) Hyponatremia (5) Constipation (6) ESRD (end stage renal disease) Plan Patient has HD done in AM. BP is stable. Still has no BM. Repeat Abd. x-ray noted. K is low, now for HD. Continue suppository and enema as needed. Problem Qualifiers (1) HTN (hypertension): Qualified Code: I10 - Essential hypertension (2) Anemia: Jessica Colin MD December 04, 2016 13:26
[2016-12-04] MEDS ORDERED: POTASSIUM CHLORIDE 20 MEQ CONTROLLED RELEASE TAB PO ONE (14:00)
[2016-12-04] MEDS: LURASIDONE 40 MG TAB PO SCH (17:38)
[2016-12-04] MEDS: traZODone HCL 50 MG TAB PO SCH (21:35)
[2016-12-04] MEDS: ATORVASTATIN 20 MG TAB PO SCH (21:37)
[2016-12-05] VITALS (8 sets, daily range): BP systolic 117–182; BP diastolic 50–77; PULSE 70–78; RESP 12–24; TEMP 95.5–98.9; O2SAT 92–100
[2016-12-05] MEDS ORDERED: CHLORHEXIDINE GLUCONATE 2 % 1 PACK (2 CLOTHS) TOPICAL PRN (01:15)
[2016-12-05] MEDS ORDERED: SODIUM CHLORID 0.9% 500 ML IV PRN (01:15)
[2016-12-05] MEDS ORDERED: INSULIN HUMAN REGULAR 1,000 UNITS/10 ML VIAL SQ PRN (01:15)
[2016-12-05 05:51] LABS: HEMATOCRIT 31.4 % (35.0-46.0); MEAN CELL VOLUME 87.1 FL (80.0-100.0); MEAN CORPUSCULAR HEMOGLOBIN 27.9 PG (27.0-34.0); MEAN CORPUSCULAR HGB CONC 32.1 % (32.0-36.0); PLATELET COUNT 106 TH/MM3 (150-450); RED CELL DISTRIBUTION WIDTH 15.7 % (11.6-17.2); REVIEW FLAG FINAL; WHITE BLOOD COUNT 4.7 TH/MM3 (4.0-11.0)
[2016-12-05] MEDS: METOCLOPRAMIDE HCL SYRUP 10 MG/10 ML UDC PO SCH ×3 (08:00→17:00)
[2016-12-05] MEDS: RESP: ALBUTEROL 2.5 MG/IPRATROPIUM 0.5 MG NEB (SCH) NEB ×3 (08:02→20:51)
[2016-12-05] MEDS: CINACALCET HYDROCHLORIDE 30 MG TAB PO SCH (09:00)
[2016-12-05] MEDS: LOSARTAN 50 MG TAB PO SCH (09:00)
[2016-12-05] MEDS: GABAPENTIN 100 MG CAP PO SCH (09:00)
[2016-12-05] MEDS: guaiFENesin E.R. 600 MG TAB PO SCH ×2 (09:00→23:30)
[2016-12-05] MEDS: BENZTROPINE MESYLATE 2 MG TAB PO SCH ×2 (09:00→23:30)
[2016-12-05] MEDS: VITAMIN B CMPLX/VITC/FOLIC AC CAP PO SCH (09:00)
[2016-12-05] MEDS: CLOPIDOGREL 75 MG TAB PO SCH (09:00)
[2016-12-05] MEDS: ESCITALOPRAM OXALATE 10 MG TAB PO SCH (09:00)
[2016-12-05] MEDS: DOCUSATE SODIUM 50 MG/SENNA 8.6 MG TAB PO SCH ×2 (09:00→21:00)
--- NOTE | 2016-12-05 10:44 | HHI.NPPN ---
Subjective History of Present Illness 51-year-old female with past medical history of chronic obstructive pulmonary disease, hypertension, history of anxiety, chronic anemia, end-stage renal disease on hemodialysis for more than 10 years came to the hospital with complaint of constipation, nausea and vomiting. I was called to see the patient for the management of hemodialysis. Additional Remarks Patient is alert, no SOB, still has no BM. Review of Systems Gastrointestinal Gastrointestinal: Abdominal Pain, Constipation Objective Data Data 12/04/16 12/05/16 19:00 07:00 Intake Total 50 ml 240 ml Balance 50 ml 240 ml Intake Oral 240 ml Other 50 ml # Voids 5 # Bowel Movements 5 Vital Signs Date Time Temp Pulse Resp B/P Pulse Ox O2 Delivery O2 Flow Rate FiO2 12/05/16 08:04 98 Nasal Cannula 2.00 12/05/16 08:00 98.9 72 16 144/62 94 12/05/16 03:00 92 21 12/05/16 00:00 97.0 71 17 132/65 100 12/04/16 20:07 97 Nasal Cannula 2.00 21 12/04/16 20:00 97.5 74 18 156/65 100 12/04/16 16:00 96.3 72 20 140/79 100 12/04/16 14:04 74 144/61 99 12/04/16 13:21 100 Nasal Cannula 2.00 12/04/16 11:29 61 18 180/71 100 12/04/16 11:19 62 18 184/72 100 12/04/16 11:09 97.4 67 18 186/73 99 -: 12/05/16 0501 12/04/16 1218 Physical Exam General Appearance: No Acute Distress, Comfortable Eyes Eye Exam: Pupils Equal Throat Throat Exam: Oral Mucosa [place] & Moist Neck Neck Exam: Neck Supple, Trachea Midline Pulmonary Resp Exam: Breath Sounds Equal, No Distress, Decreased Bases Cardiology CV Exam: Regular, Normal Sinus Rhythm Gastrointestinal/Abdomen GI Exam: Soft, Non-Tender, Bowel Sounds Present, Distended Extremeties Extremities Exam: Trace Edema Neurologic Neuro Exam: Alert, Awake, Oriented Psychiatric Psych Exam: Appropriate Responses Assessment/Plan Assessment Summary: Anemia of CKD, Hypertension, End Stage Renal Disease Problem List: (1) HTN (hypertension) (2) Bipolar disorder (3) Anemia (4) Hyponatremia (5) Constipation (6) ESRD (end stage renal disease) Plan Patient has HD done in AM. BP is stable. HD on 4 kHCO3 UF 3 L tolerating it K Low replace Problem Qualifiers (1) HTN (hypertension): Qualified Code: I10 - Essential hypertension (2) Anemia: Naseem Valentin MD December 05, 2016 10:43
[2016-12-05] MEDS: GELATIN 12 MM/7 MM FOAM TOP PRN (11:38)
[2016-12-05] MEDS ORDERED: POTASSIUM CHLORIDE 20 MEQ CONTROLLED RELEASE TAB PO ONE (12:45)
[2016-12-05] MEDS ORDERED: PROPOFOL 200 MG/20 ML AMP IV ONE (15:41)
[2016-12-05] MEDS: PANTOPRAZOLE SODIUM 40 MG VIAL IV PUSH SCH (17:47)
[2016-12-05] MEDS: SODIUM CHLORIDE 0.9% FLUSH 10 ML FLUSH IV FLUSH SCH ×2 (17:48→21:00)
--- NOTE | 2016-12-05 17:50 | HHI.PR ---
Subjective Remarks Follow-up for constipation and possible pneumonia. Discussed with RN, the patient had large bowel movement earlier this morning. Patient seen after colonoscopy today. Per RN, there was still stool present in the colonoscopy. The patient reports her abdominal pain has significantly improved. She denies any nausea or vomiting. She reports a mild cough, not really productive. She denies any shortness of breath. She is not on oxygen at home. The patient had dialysis earlier today. RN reports the patient has had episodes of borderline low blood sugar while nothing by mouth. Objective Vitals Vital Signs Date Time Temp Pulse Resp B/P Pulse Ox O2 Delivery O2 Flow Rate FiO2 12/05/16 16:45 72 20 136/61 99 12/05/16 16:30 66 18 125/58 99 12/05/16 16:20 96.0 79 18 103/51 99 12/05/16 08:04 98 Nasal Cannula 2.00 12/05/16 08:00 98.9 72 16 144/62 94 12/05/16 03:00 92 21 12/05/16 00:00 97.0 71 17 132/65 100 12/04/16 20:07 97 Nasal Cannula 2.00 21 12/04/16 20:00 97.5 74 18 156/65 100 I/O 12/04/16 12/04/16 12/04/16 12/05/16 12/05/16 12/05/16 07:00 15:00 23:00 07:00 15:00 23:00 Intake Total 50 ml 240 ml 0 ml Output Total 3000 ml Balance 50 ml 240 ml 0 ml -3000 ml Intake Oral 240 ml 0 ml Other 50 ml Output Hemodialysis 3000 ml # Voids 3 3 2 # Bowel Movements 3 2 Result Diagram: 12/05/16 0501 12/04/16 1218 Imaging Last Impressions Chest X-Ray 12/04/16 0000 Signed Impressions: Service Date/Time: Sunday, December 04, 2016 07:21 - CONCLUSION: No significant change right greater than left basilar consolidation and effusions. Augustin Hall MD Abdomen X-Ray 12/03/16 0700 Signed Impressions: Service Date/Time: November 07:28 - CONCLUSION: 1. There is a nonobstructive bowel gas pattern. Additionally, there are no findings to suggest ileus. 2. Small right pleural effusion with associated compressive atelectasis. There is also trace left pleural fluid. Augustin Palomino MD Abdomen/Pelvis CT 12/01/162015 Signed Impressions: Service Date/Time: Thursday, December 01, 2016 22:20 - CONCLUSION: 1. Moderate size right pleural effusion remains with consolidation in the right lung base. 2. Nonspecific, nonobstructive bowel gas pattern most consistent with a mild ileus. 3. Small atrophic kidneys again noted with benign calcifications. 4. Moderate amount of ascitic fluid. 5. Decrease in size in the hematoma in the left gluteal region. 6. Anasarca again noted. Bola Faustin MD Objective Remarks GENERAL: Well-developed well-nourished. In no acute distress. SKIN: Warm and dry. Left chest AVF. HEENT: Normocephalic. Pupils equal and round. Mucous membranes pink and moist. CARDIOVASCULAR: Regular rate and rhythm. No murmur appreciated. RESPIRATORY: No accessory muscle use. Clear to auscultation. Diminished breath sounds. No wheezing or crackles. GASTROINTESTINAL: Abdomen nontender, mildly distended but soft. Bowel sounds present but diminished. MUSCULOSKELETAL: No obvious deformities. No clubbing or cyanosis. No edema. NEUROLOGICAL: Awake and alert. No focal neurological deficits. Moves upper and lower extremities spontaneously. Normal speech. PSYCHIATRIC: Appropriate mood and flat affect; insight and judgment fair to normal. A/P Problem List: (1) ESRD (end stage renal disease) ICD Code: N18.6 Status: Chronic (2) Constipation ICD Code: K59.00 Status: Acute (3) Ileus ICD Code: K56.7 Status: Resolved (4) Hypoxia ICD Code: R09.02 Status: Acute (5) Pneumonia ICD Code: J18.9 Status: Acute Assessment and Plan Constipation/obstipation with possible mild ileus The patient says she has not had a bowel movement in 1-2 weeks. She is passing gas. She has associated nausea and vomiting and abdominal pain. Reviewed: CT of the abdomen showed: Moderate sized right pleural effusion with consolidation in the right lung base; Nonspecific, nonobstructive bowel gas pattern most consistent with a mild ileus; Moderate amount of ascitic fluid; Decrease in size in the hematoma in the left gluteal region. Checked serial KUBs which showed nonspecific bowel gas and a large amount of stool. - No improvement with enemas - Continue Katalina-Colace - PPI. - GI consulted, recommended bowel prep and colonoscopy, results pending - Symptoms seeming to improve after bowel prep - Diet per GI Pneumonia/hypoxia Reviewed: O2 saturation down to 87%. Chest x-ray with bibasilar consolidation. Afebrile. - Incentive spirometry and Acapella - Scheduled and as needed nebs - Guaifenesin - Started renally adjusted Levaquin - Supplemental oxygen as needed. Check walk test. ESRD On dialysis M//. - consulted nephrology for resumption of dialysis. - Caution with nephrotoxic agents including magnesium containing laxatives Hyponatremia Likely hypervolemic in the setting of ESRD. - dialysis as above. - follow BMP. Anemia, normocytic Likely s/t renal disease. Hgb is at baseline. - follow CBC. - Epo with dialysis as indicated. HTN Likely s/t renal disease and abdominal pain. Reasonably controlled. - Continue home meds. Bipolar disorder Mood seems stable. - continue home medications. Hypoglycemia while nothing by mouth - Hypoglycemia protocol PPx: PPI. Hold heparin for GI procedure. Discharge Planning Follow-up GI recommendations and results of walk test. Problem Qualifiers (1) Pneumonia: Qualified Code: J18.1 - Pneumonia of right lower lobe due to infectious organism Jayson Salazar December 05, 2016 17:49
[2016-12-05] MEDS ORDERED: DEXTROSE 50% IN WATER 50 ML VIAL(D50) IV PRN (18:00)
[2016-12-05] MEDS: LURASIDONE 40 MG TAB PO SCH (18:00)
[2016-12-05] MEDS ORDERED: GLUCAGON 1 MG/ML VIAL OTHER PRN (18:00)
[2016-12-05] MEDS ORDERED: DO NOT ADM ANY ANTICOAGULANT DRUGS PRN (18:30)
[2016-12-05 19:20] LABS: BICARBONATE 32.9 MEQ/L (21.0-32.0)
[2016-12-05 19:21] LABS: POTASSIUM 4.2 MEQ/L (3.5-5.1)
[2016-12-05] MEDS: ATORVASTATIN 20 MG TAB PO SCH (23:30)
[2016-12-05] MEDS: traZODone HCL 50 MG TAB PO SCH (23:30)
[2016-12-06] VITALS (7 sets, daily range): BP systolic 129–170; BP diastolic 57–70; PULSE 71–84; RESP 16–18; TEMP 98.5–99.1; O2SAT 94–100
[2016-12-06] MEDS ORDERED: OXYGENTANK NAS.CANULA (07:54)
[2016-12-06] MEDS: METOCLOPRAMIDE HCL SYRUP 10 MG/10 ML UDC PO SCH ×3 (08:00→17:31)
[2016-12-06] MEDS: CLOPIDOGREL 75 MG TAB PO SCH (08:04)
[2016-12-06] MEDS: GABAPENTIN 100 MG CAP PO SCH (08:04)
[2016-12-06] MEDS: guaiFENesin E.R. 600 MG TAB PO SCH ×2 (08:05→21:27)
[2016-12-06] MEDS: SODIUM CHLORIDE 0.9% FLUSH 10 ML FLUSH IV FLUSH SCH ×2 (08:05→21:00)
[2016-12-06] MEDS: ESCITALOPRAM OXALATE 10 MG TAB PO SCH (08:05)
[2016-12-06] MEDS: LOSARTAN 50 MG TAB PO SCH (08:05)
[2016-12-06] MEDS: DOCUSATE SODIUM 50 MG/SENNA 8.6 MG TAB PO SCH ×2 (08:05→21:26)
[2016-12-06] MEDS: PANTOPRAZOLE SODIUM 40 MG VIAL IV PUSH SCH (08:05)
[2016-12-06] MEDS: BENZTROPINE MESYLATE 2 MG TAB PO SCH ×2 (08:05→21:26)
[2016-12-06] MEDS: VITAMIN B CMPLX/VITC/FOLIC AC CAP PO SCH (08:05)
[2016-12-06] MEDS: CINACALCET HYDROCHLORIDE 30 MG TAB PO SCH (08:05)
[2016-12-06] MEDS: RESP: ALBUTEROL 2.5 MG/IPRATROPIUM 0.5 MG NEB (SCH) NEB ×3 (09:34→19:20)
[2016-12-06] MEDS ORDERED: LEVOFLOXACIN 500 MG TAB PO SCH (10:00)
--- NOTE | 2016-12-06 11:44 | HHI.GIFU ---
Subjective Remarks S/P Colonoscopy, asymptomatic and no abdominal pain. Objective Vitals I&O Vital Signs Date Time Temp Pulse Resp B/P Pulse Ox O2 Delivery O2 Flow Rate FiO2 12/06/16 09:36 100 Nasal Cannula 2.00 12/06/16 08:00 98.5 71 18 147/65 100 12/06/16 06:25 2.00 12/06/16 00:00 99.0 84 18 170/70 96 12/05/16 20:53 99 Nasal Cannula 3.00 12/05/16 20:00 97.3 78 20 182/77 100 12/05/16 16:45 72 20 136/61 99 12/05/16 16:30 66 18 125/58 99 12/05/16 16:20 96.0 79 18 103/51 99 12/05/16 16:00 95.5 75 24 167/63 100 12/05/16 14:00 98.5 70 12 117/50 100 I/O 12/05/16 12/05/16 12/05/16 12/06/16 12/06/16 12/06/16 07:00 15:00 23:00 07:00 15:00 23:00 Intake Total 0 ml Output Total 3000 ml Balance 0 ml -3000 ml Intake Oral 0 ml Output Hemodialysis 3000 ml # Voids 2 2 1 # Bowel Movements 2 1 1 0 Laboratory Laboratory Tests Test 12/05/16 18:34 Sodium Level 136 Potassium Level 4.2 Chloride Level 93 Carbon Dioxide Level 32.9 Anion Gap 10 Blood Urea Nitrogen 10 Creatinine 3.57 Estimat Glomerular Filtration 14 Rate Random Glucose 109 Calcium Level 8.3 Physical Exam NECK: Neck is supple, no JVD, no lymphadenopathy. CHEST: Chest is clear to auscultation and percussion. CARDIAC: Regular rate and rhythm with no murmur gallop or rubs. ABDOMEN: Soft, nondistended, nontender; no hepatosplenomegaly; bowel sounds are present in all four quadrants. EXTREMITIES: No clubbing, cyanosis, or edema. Assessment and Plan Plan ASSESSMENT - abdominal pain, constipation . - S/P colonoscopy, suboptimal bowel prep but no large or obstructing lesions. PLAN - colonoscopy with better bowel prep as out patient - CANDICE - High fiber diet - Metamucil - Stable from GI point of view, please reconsult if needed. Shanell Garrett MD December 06, 2016 11:44
[2016-12-06] MEDS ORDERED: PERI8.6T PO (13:39)
[2016-12-06] MEDS ORDERED: LEVO500T8 PO (13:39)
--- NOTE | 2016-12-06 13:44 | HHI.PR ---
Subjective Remarks Follow-up for abdominal pain, constipation, hypoxia. The patient reports abdominal pain has resolved. She had a small bowel movement overnight. She is tolerating full diet. She states that her niece who she is currently living with does not want oxygen and home because it "brings back bad memories", although patient does not elaborate. The patient would like to be on oxygen because she "wants to breathe". She states that she will be moving into her house next week on 12/14. She is agreeable for home O2. Discussed with RN. Objective Vitals Vital Signs Date Time Temp Pulse Resp B/P Pulse Ox O2 Delivery O2 Flow Rate FiO2 12/06/16 12:00 98.5 79 18 129/57 99 12/06/16 09:36 100 Nasal Cannula 2.00 12/06/16 08:00 98.5 71 18 147/65 100 12/06/16 06:25 2.00 12/06/16 00:00 99.0 84 18 170/70 96 12/05/16 20:53 99 Nasal Cannula 3.00 12/05/16 20:00 97.3 78 20 182/77 100 12/05/16 16:45 72 20 136/61 99 12/05/16 16:30 66 18 125/58 99 12/05/16 16:20 96.0 79 18 103/51 99 12/05/16 16:00 95.5 75 24 167/63 100 12/05/16 14:00 98.5 70 12 117/50 100 I/O 12/05/16 12/05/16 12/05/16 12/06/16 12/06/16 12/06/16 07:00 15:00 23:00 07:00 15:00 23:00 Intake Total 0 ml Output Total 3000 ml Balance 0 ml -3000 ml Intake Oral 0 ml Output Hemodialysis 3000 ml # Voids 2 2 1 # Bowel Movements 2 1 1 0 Result Diagram: 12/05/16 0501 12/05/16 1834 Imaging Last Impressions Chest X-Ray 12/04/16 0000 Signed Impressions: Service Date/Time: Sunday, December 04, 2016 07:21 - CONCLUSION: No significant change right greater than left basilar consolidation and effusions. Augustin Hall MD Abdomen X-Ray 12/03/16 0700 Signed Impressions: Service Date/Time: November 07:28 - CONCLUSION: 1. There is a nonobstructive bowel gas pattern. Additionally, there are no findings to suggest ileus. 2. Small right pleural effusion with associated compressive atelectasis. There is also trace left pleural fluid. Augustin Palomino MD Abdomen/Pelvis CT 12/01/162015 Signed Impressions: Service Date/Time: Thursday, December 01, 2016 22:20 - CONCLUSION: 1. Moderate size right pleural effusion remains with consolidation in the right lung base. 2. Nonspecific, nonobstructive bowel gas pattern most consistent with a mild ileus. 3. Small atrophic kidneys again noted with benign calcifications. 4. Moderate amount of ascitic fluid. 5. Decrease in size in the hematoma in the left gluteal region. 6. Anasarca again noted. Bola Faustin MD Objective Remarks GENERAL: Well-developed well-nourished. In no acute distress. SKIN: Warm and dry. Left chest AVF. HEENT: Normocephalic. Pupils equal and round. Mucous membranes pink and moist. CARDIOVASCULAR: Regular rate and rhythm. No murmur appreciated. RESPIRATORY: No accessory muscle use. Clear to auscultation. Decreased breath sounds in the right lung base. GASTROINTESTINAL: Abdomen soft, nontender. Bowel sounds present. MUSCULOSKELETAL: No obvious deformities. No clubbing or cyanosis. No edema. NEUROLOGICAL: Awake and alert. No focal neurological deficits. Moves upper and lower extremities spontaneously. Normal speech. PSYCHIATRIC: Appropriate mood and flat affect; insight and judgment fair to normal. A/P Problem List: (1) ESRD (end stage renal disease) ICD Code: N18.6 Status: Chronic (2) Constipation ICD Code: K59.00 Status: Acute (3) Ileus ICD Code: K56.7 Status: Resolved (4) Hypoxia ICD Code: R09.02 Status: Acute (5) Pneumonia ICD Code: J18.9 Status: Acute Assessment and Plan Constipation/obstipation with possible mild ileus The patient says she has not had a bowel movement in 1-2 weeks. She is passing gas. She has associated nausea and vomiting and abdominal pain. Reviewed: CT of the abdomen showed: Moderate sized right pleural effusion with consolidation in the right lung base; Nonspecific, nonobstructive bowel gas pattern most consistent with a mild ileus; Moderate amount of ascitic fluid; Decrease in size in the hematoma in the left gluteal region. Checked serial KUBs which showed nonspecific bowel gas and a large amount of stool. - No improvement with enemas - Continue Katalina-Colace - GI consulted, recommended bowel prep and colonoscopy, results pending - Symptoms seeming to improve after bowel prep - Cleared by GI for discharge Pneumonia/hypoxia Reviewed: O2 saturation down to 87%. Chest x-ray with bibasilar consolidation. Afebrile. - Incentive spirometry and Acapella - Scheduled and as needed nebs - Guaifenesin - Continue course of renally adjusted Levaquin - Patient had walk test and oxygen saturation dropped to 87%. Home oxygen ordered, case management consulted. ESRD On dialysis //. - consulted nephrology for resumption of dialysis. - Caution with nephrotoxic agents including magnesium containing laxatives Hyponatremia Likely hypervolemic in the setting of ESRD. - dialysis as above. - follow BMP. Anemia, normocytic Likely s/t renal disease. Hgb is at baseline. - follow CBC. - Epo with dialysis as indicated. HTN Likely s/t renal disease and abdominal pain. Reasonably controlled. - Continue home meds. Bipolar disorder Mood seems stable. - continue home medications. Hypoglycemia while nothing by mouth - Hypoglycemia protocol Discharge Planning Discharge home with home oxygen. Problem Qualifiers (1) Pneumonia: Qualified Code: J18.1 - Pneumonia of right lower lobe due to infectious organism Jayson Salaazr December 06, 2016 13:44
--- NOTE | 2016-12-06 13:46 | HHI.DS ---
Discharge Summary Admission Date December 04, 2016 at 09:49 Discharge Date: December 06, 2016 Admitting Diagnosis ileus, ESRD on dialysis, hyponatremia (1) ESRD (end stage renal disease) ICD Code: N18.6 Diagnosis: Secondary (2) Constipation ICD Code: K59.00 Diagnosis: Principal (3) Ileus ICD Code: K56.7 Diagnosis: Principal (4) Hypoxia ICD Code: R09.02 Diagnosis: Secondary (5) Pneumonia ICD Code: J18.9 Diagnosis: Secondary Procedures Colonoscopy 12/04 and 12/06 Brief History - From Admission The patient is a 51-year-old female with a past medical history of end-stage renal disease on dialysis who is presenting to the hospital with constipation, and nausea and vomiting. The patient says that she has not had a bowel movement in over a week. She then goes on to say that it might be over a week and might actually be 2 weeks since her last bowel movement. She says she has been taking prune juice and has been taking orange pills. She has not experienced a bowel movement with this regimen but she has been passing gas. She has not sought any medical advice. She has been experiencing nausea and vomiting. She has not noticed any blood in the vomitus. She says her vomit appears liquid in nature. She has been experiencing upper abdominal pain that she rates as a 10 out of 10 in severity. She has not been eating well over the past few days. She also has not been sleeping. She denies any fevers. She has been going to dialysis as per routine. The patient states she tends to ambulate with a walker. CBC/BMP: 12/05/16 0501 12/05/16 1834 Significant Findings Laboratory Tests Test 12/04/16 12/05/16 12/05/16 12:18 05:01 18:34 White Blood Count 3.8 TH/MM3 (4.0-11.0) Hemoglobin 11.5 GM/DL 10.1 GM/DL (11.6-15.3) (11.6-15.3) Mean Corpuscular Hemoglobin 31.3 % Concent (32.0-36.0) Platelet Count 127 TH/MM3 106 TH/MM3 (150-450) (150-450) Monocytes (%) (Auto) 13.7 % (0.0-8.0) Lymphocytes # (Auto) 0.8 TH/MM3 (1.0-4.8) Sodium Level 134 MEQ/L (136-145) Potassium Level 3.1 MEQ/L (3.5-5.1) Chloride Level 92 MEQ/L 93 MEQ/L (98-107) (98-107) Creatinine 4.85 MG/DL 3.57 MG/DL (0.50-1.00) (0.50-1.00) Estimat Glomerular Filtration 9 ML/MIN (>89) 14 ML/MIN (>89) Rate Calcium Level 8.2 MG/DL 8.3 MG/DL (8.5-10.1) (8.5-10.1) Red Blood Count 3.60 MIL/MM3 (4.00-5.30) Hematocrit 31.4 % (35.0-46.0) Carbon Dioxide Level 32.9 MEQ/L (21.0-32.0) Random Glucose 109 MG/DL (74-106) Imaging Last Impressions Chest X-Ray 12/04/16 0000 Signed Impressions: Service Date/Time: Sunday, December 04, 2016 07:21 - CONCLUSION: No significant change right greater than left basilar consolidation and effusions. Augustin Hall MD Abdomen X-Ray 12/03/16 0700 Signed Impressions: Service Date/Time: November 07:28 - CONCLUSION: 1. There is a nonobstructive bowel gas pattern. Additionally, there are no findings to suggest ileus. 2. Small right pleural effusion with associated compressive atelectasis. There is also trace left pleural fluid. Augustin Palomino MD Abdomen/Pelvis CT 12/01/162015 Signed Impressions: Service Date/Time: Thursday, December 01, 2016 22:20 - CONCLUSION: 1. Moderate size right pleural effusion remains with consolidation in the right lung base. 2. Nonspecific, nonobstructive bowel gas pattern most consistent with a mild ileus. 3. Small atrophic kidneys again noted with benign calcifications. 4. Moderate amount of ascitic fluid. 5. Decrease in size in the hematoma in the left gluteal region. 6. Anasarca again noted. Bola Faustin MD PE at Discharge GENERAL: Well-developed well-nourished. In no acute distress. SKIN: Warm and dry. Left chest AVF. HEENT: Normocephalic. Pupils equal and round. Mucous membranes pink and moist. CARDIOVASCULAR: Regular rate and rhythm. No murmur appreciated. RESPIRATORY: No accessory muscle use. Clear to auscultation. Decreased breath sounds in the right lung base. GASTROINTESTINAL: Abdomen soft, nontender. Bowel sounds present. MUSCULOSKELETAL: No obvious deformities. No clubbing or cyanosis. No edema. NEUROLOGICAL: Awake and alert. No focal neurological deficits. Moves upper and lower extremities spontaneously. Normal speech. PSYCHIATRIC: Appropriate mood and flat affect; insight and judgment fair to normal. Hospital Course Constipation/obstipation with possible mild ileus The patient says she has not had a bowel movement in 1-2 weeks. She is passing gas. She has associated nausea and vomiting and abdominal pain. Reviewed: CT of the abdomen showed: Moderate sized right pleural effusion with consolidation in the right lung base; Nonspecific, nonobstructive bowel gas pattern most consistent with a mild ileus; Moderate amount of ascitic fluid; Decrease in size in the hematoma in the left gluteal region. Checked serial KUBs which showed nonspecific bowel gas and a large amount of stool. - No improvement with enemas - Continue Katalina-Colace - GI consulted, performed colonoscopy 2 - Symptoms seeming to improve after bowel prep - Cleared by GI for discharge Pneumonia/hypoxia Reviewed: O2 saturation down to 87%. Chest x-ray with bibasilar consolidation. Afebrile. - Incentive spirometry and Acapella - Scheduled and as needed nebs - Guaifenesin - Continue course of renally adjusted Levaquin - Patient had walk test and oxygen saturation dropped to 87%. Home oxygen ordered, patient refused due to family members smoking at home. Pt Condition on Discharge: Stable Discharge Disposition: Discharge Home Discharge Time: > 30 minutes Discharge Instructions DIET: Follow Instructions for: Renal Failure Diet Activities you can perform: Regular-No Restrictions Follow up Referrals: Gastroenterology - 2 Weeks @ [facility] - 1 Month with Serg Vinson MD PCP Follow-up - 1 Week with Ashley Wilhelm MD New Medications: Oxygen tank (Oxygen tank) 1 Ea Tank 2 LITER JOSIAH.CANULA CONTINUOUS Oxygen Concentrator Portable Gaseous 2 L/min via Nasal Cannula Continuous For 99 months HYPOXEMIA PREVENTION #2 CYLINDER Sennosides-Docusate Sodium (Katalina-Colace) 8.6-50 Mg Tab 1 TAB PO BID Constipation #60 Ref 0 TAB Levofloxacin (Levofloxacin) 500 Mg Tablet 500 MG PO Q48H Infection #3 TAB Polyethylene Glycol 3350 Powder (Polyethylene Glycol 3350 Powder) 17 Gm Pow 17 GM PO DAILY Constipation Days 14 BOTTLE Continued Medications: Atorvastatin (Atorvastatin) 20 Mg Tab 20 MG PO HS Cholesterol Management #30 Ref 0 TAB B-Complex W/ C & Folic Acid (Nephrocaps) 1 Cap 1 CAP PO DAILY If on dialysis, take after treatment. Nutritional Supplement #30 Ref 0 CAP Benztropine (Benztropine) 2 Mg Tab 2 MG PO Q12HR side effects Days 10 Ref 1 TAB Cinacalcet (Sensipar) 60 Mg Tab 60 MG PO DAILY With Dinner #30 Ref 3 TAB Clopidogrel (Plavix) 75 Mg Tab 75 MG PO DAILY Blood Clot Prevention #30 Ref 6 TAB Escitalopram (Lexapro) 10 Mg Tab 10 MG PO DAILY #30 Ref 0 TAB Ferric Citrate (Auryxia) 210 Mg Tab 210 MG PO 2-3 TIMES A DAY Take with meals 2-3 times a day Ferric Citrate (Auryxia) 210 Mg Tab TAB PO TID Gabapentin (Neurontin) 100 Mg Cap 200 MG PO BID #60 Ref 0 CAP Hydrocodone-Acetaminophen (Hydrocodone-Acetaminophen) 7.5-325 mg Tab 1 TAB PO Q4H PRN PAIN SCALE 6 TO 10 #30 Ref 0 TAB Losartan (Losartan) 50 Mg Tab 50 MG PO DAILY Blood Pressure Management #30 Ref 6 TAB Lurasidone (Latuda) 40 Mg Tab 40 MG PO WITH DINNER #60 Ref 1 TAB Metoclopramide (Reglan) 5 Mg Tab 5 MG PO TIDAC Ref 0 TAB Trazodone (Trazodone) 50 Mg Tab 75 MG PO HS #60 Ref 1 TAB Jayson Salazar December 06, 2016 13:46
--- NOTE | 2016-12-06 15:26 | HHI.NPPN ---
Subjective History of Present Illness 51-year-old female with past medical history of chronic obstructive pulmonary disease, hypertension, history of anxiety, chronic anemia, end-stage renal disease on hemodialysis for more than 10 years came to the hospital with complaint of constipation, nausea and vomiting. I was called to see the patient for the management of hemodialysis. Additional Remarks Patient is alert, no SOB, Review of Systems Gastrointestinal Gastrointestinal: Abdominal Pain, Constipation Objective Data Data 12/05/16 12/06/16 19:00 07:00 Output Total 3000 ml Balance -3000 ml Output Hemodialysis 3000 ml # Voids 3 # Bowel Movements 1 1 Vital Signs Date Time Temp Pulse Resp B/P Pulse Ox O2 Delivery O2 Flow Rate FiO2 12/06/16 12:00 98.5 79 18 129/57 99 12/06/16 09:36 100 Nasal Cannula 2.00 12/06/16 08:00 98.5 71 18 147/65 100 12/06/16 06:25 2.00 12/06/16 00:00 99.0 84 18 170/70 96 12/05/16 20:53 99 Nasal Cannula 3.00 12/05/16 20:00 97.3 78 20 182/77 100 12/05/16 16:45 72 20 136/61 99 12/05/16 16:30 66 18 125/58 99 12/05/16 16:20 96.0 79 18 103/51 99 12/05/16 16:00 95.5 75 24 167/63 100 -: 12/05/16 0501 12/05/16 1834 Physical Exam General Appearance: No Acute Distress, Comfortable Eyes Eye Exam: Pupils Equal Throat Throat Exam: Oral Mucosa [place] & Moist Neck Neck Exam: Neck Supple, Trachea Midline Pulmonary Resp Exam: Breath Sounds Equal, No Distress, Decreased Bases Cardiology CV Exam: Regular, Normal Sinus Rhythm Gastrointestinal/Abdomen GI Exam: Soft, Non-Tender, Bowel Sounds Present, Distended Extremeties Extremities Exam: Trace Edema Neurologic Neuro Exam: Alert, Awake, Oriented Psychiatric Psych Exam: Appropriate Responses Assessment/Plan Assessment Summary: Anemia of CKD, Hypertension, End Stage Renal Disease Problem List: (1) HTN (hypertension) (2) Bipolar disorder (3) Anemia (4) Hyponatremia (5) Constipation (6) ESRD (end stage renal disease) Plan Patient has HD done yesterday BP is stable. HD yesterday [address] Colin to follow Problem Qualifiers (1) HTN (hypertension): Qualified Code: I10 - Essential hypertension (2) Anemia: Naseem Valentin MD December 06, 2016 15:26
[2016-12-06] MEDS: LURASIDONE 40 MG TAB PO SCH (17:30)
[2016-12-06] MEDS: ATORVASTATIN 20 MG TAB PO SCH (21:26)
[2016-12-06] MEDS: traZODone HCL 50 MG TAB PO SCH (21:26)
[2016-12-07] VITALS: BP 146/66; PULSE 76; RESP 16; TEMP 98.8; O2SAT 97
[2016-12-07] MEDS: RESP: ALBUTEROL 2.5 MG/IPRATROPIUM 0.5 MG NEB (SCH) NEB ×2 (07:35→12:51)
[2016-12-07 07:37] VITALS: O2SAT 95
[2016-12-07 08:00] VITALS: BP 121/56; PULSE 76; RESP 16; TEMP 97.8; O2SAT 95
[2016-12-07] MEDS: CINACALCET HYDROCHLORIDE 30 MG TAB PO SCH (08:16)
[2016-12-07] MEDS: DOCUSATE SODIUM 50 MG/SENNA 8.6 MG TAB PO SCH (08:17)
[2016-12-07] MEDS: CLOPIDOGREL 75 MG TAB PO SCH (08:17)
[2016-12-07] MEDS: GABAPENTIN 100 MG CAP PO SCH (08:17)
[2016-12-07] MEDS: guaiFENesin E.R. 600 MG TAB PO SCH (08:17)
[2016-12-07] MEDS: PANTOPRAZOLE SODIUM 40 MG VIAL IV PUSH SCH (08:17)
[2016-12-07] MEDS: LOSARTAN 50 MG TAB PO SCH (08:18)
[2016-12-07] MEDS: BENZTROPINE MESYLATE 2 MG TAB PO SCH (08:18)
[2016-12-07] MEDS: ESCITALOPRAM OXALATE 10 MG TAB PO SCH (08:18)
[2016-12-07] MEDS: VITAMIN B CMPLX/VITC/FOLIC AC CAP PO SCH (08:18)
[2016-12-07] MEDS: METOCLOPRAMIDE HCL SYRUP 10 MG/10 ML UDC PO SCH ×3 (08:21→17:00)
[2016-12-07] MEDS: SODIUM CHLORIDE 0.9% FLUSH 10 ML FLUSH IV FLUSH SCH (08:24)
--- NOTE | 2016-12-07 11:22 | HHI.NPPN ---
Subjective History of Present Illness 51-year-old female with past medical history of chronic obstructive pulmonary disease, hypertension, history of anxiety, chronic anemia, end-stage renal disease on hemodialysis for more than 10 years came to the hospital with complaint of constipation, nausea and vomiting. I was called to see the patient for the management of hemodialysis. Additional Remarks Patient is alert, now has no abd. pain or SOB. Review of Systems Gastrointestinal Gastrointestinal: Abdominal Pain, Constipation Objective Data Data 12/06/16 12/07/16 19:00 07:00 Intake Total 240 ml 480 ml Balance 240 ml 480 ml Intake Oral 240 ml 480 ml IV Total 0 ml # Voids 2 4 # Bowel Movements 2 0 Vital Signs Date Time Temp Pulse Resp B/P Pulse Ox O2 Delivery O2 Flow Rate FiO2 12/07/16 08:00 97.8 76 16 121/56 95 12/07/16 07:37 95 21 12/07/16 00:00 98.8 76 16 146/66 97 12/06/16 20:00 99.1 84 16 154/68 95 12/06/16 19:20 96 21 12/06/16 16:00 98.5 81 17 164/68 94 12/06/16 12:00 98.5 79 18 129/57 99 -: 12/05/16 0501 12/05/16 1834 Physical Exam General Appearance: No Acute Distress, Comfortable Eyes Eye Exam: Pupils Equal Throat Throat Exam: Oral Mucosa [place] & Moist Neck Neck Exam: Neck Supple, Trachea Midline Pulmonary Resp Exam: Breath Sounds Equal, No Distress, Decreased Bases Cardiology CV Exam: Regular, Normal Sinus Rhythm Gastrointestinal/Abdomen GI Exam: Soft, Non-Tender, Bowel Sounds Present, Distended Extremeties Extremities Exam: Trace Edema Neurologic Neuro Exam: Alert, Awake, Oriented Psychiatric Psych Exam: Appropriate Responses Assessment/Plan Assessment Summary: Anemia of CKD, Hypertension, End Stage Renal Disease Problem List: (1) HTN (hypertension) (2) Bipolar disorder (3) Anemia (4) Hyponatremia (5) Constipation (6) ESRD (end stage renal disease) Plan BP is stable. Patient has BM, now abd. pain is better. Started eating, no vomiting. HD will be today. For discharge after HD and follow with her Public Relations Specialist as out patient. Problem Qualifiers (1) HTN (hypertension): Qualified Code: I10 - Essential hypertension (2) Anemia: Jessica Colin MD December 07, 2016 11:22
[2016-12-07 12:00] VITALS: BP 105/55; PULSE 77; RESP 16; TEMP 98.5; O2SAT 91
--- NOTE | 2016-12-07 13:45 | HHI.PR ---
Subjective Remarks Follow-up for constipation and hypoxia. The patient is doing well today. She' s been tolerating normal diet. She continues to have small bowel movements. She does state that MiraLAX is helped her in the past. She denies any abdominal pain. She is going to dialysis today, and then states she wants to go home. Home oxygen has been delivered, but the patient is declining it. Although she does state that the oxygen helps her breathe, she currently lives in a shed behind her niece's house, and her niece will not allow her to have the oxygen. She states that she is moving into an apartment this Wednesday and she will follow-up with her PCP Dr. Wilhelm at that time to get home oxygen. The patient is oriented to person, place, and time. Discussed with case management. Objective Vitals Vital Signs Date Time Temp Pulse Resp B/P Pulse Ox O2 Delivery O2 Flow Rate FiO2 12/07/16 12:00 98.5 77 16 105/55 91 12/07/16 08:00 97.8 76 16 121/56 95 12/07/16 07:37 95 21 12/07/16 00:00 98.8 76 16 146/66 97 12/06/16 20:00 99.1 84 16 154/68 95 12/06/16 19:20 96 21 12/06/16 16:00 98.5 81 17 164/68 94 I/O 12/06/16 12/06/16 12/06/16 12/07/16 12/07/16 12/07/16 07:00 15:00 23:00 07:00 15:00 23:00 Intake Total 240 ml 240 ml 240 ml Balance 240 ml 240 ml 240 ml Intake Oral 240 ml 240 ml 240 ml IV Total 0 ml # Voids 1 2 2 2 # Bowel Movements 0 2 0 0 Result Diagram: 12/05/16 0501 12/05/16 1834 Imaging Last Impressions Chest X-Ray 12/04/16 0000 Signed Impressions: Service Date/Time: Sunday, December 04, 2016 07:21 - CONCLUSION: No significant change right greater than left basilar consolidation and effusions. Augustin Hall MD Abdomen X-Ray 12/03/16 0700 Signed Impressions: Service Date/Time: November 07:28 - CONCLUSION: 1. There is a nonobstructive bowel gas pattern. Additionally, there are no findings to suggest ileus. 2. Small right pleural effusion with associated compressive atelectasis. There is also trace left pleural fluid. Augustin Palomino MD Abdomen/Pelvis CT 12/01/162015 Signed Impressions: Service Date/Time: Thursday, December 01, 2016 22:20 - CONCLUSION: 1. Moderate size right pleural effusion remains with consolidation in the right lung base. 2. Nonspecific, nonobstructive bowel gas pattern most consistent with a mild ileus. 3. Small atrophic kidneys again noted with benign calcifications. 4. Moderate amount of ascitic fluid. 5. Decrease in size in the hematoma in the left gluteal region. 6. Anasarca again noted. Bola Faustin MD Objective Remarks GENERAL: Well-developed well-nourished. In no acute distress. SKIN: Warm and dry. Left chest AVF. HEENT: Normocephalic. Pupils equal and round. Mucous membranes pink and moist. CARDIOVASCULAR: Regular rate and rhythm. No murmur appreciated. RESPIRATORY: No accessory muscle use. Clear to auscultation. Decreased breath sounds in the right lung base. GASTROINTESTINAL: Abdomen soft, nontender. Bowel sounds present. MUSCULOSKELETAL: No obvious deformities. No clubbing or cyanosis. No edema. NEUROLOGICAL: Awake and alert. No focal neurological deficits. Moves upper and lower extremities spontaneously. Normal speech. PSYCHIATRIC: Appropriate mood and affect; insight and judgment fair to normal. Oriented to person, place, time, and situation. Procedures Colonoscopy 12/04 and 12/06 A/P Problem List: (1) ESRD (end stage renal disease) ICD Code: N18.6 Status: Chronic (2) Constipation ICD Code: K59.00 Status: Acute (3) Ileus ICD Code: K56.7 Status: Resolved (4) Hypoxia ICD Code: R09.02 Status: Acute (5) Pneumonia ICD Code: J18.9 Status: Acute Assessment and Plan Constipation/obstipation with possible mild ileus The patient says she has not had a bowel movement in 1-2 weeks. She is passing gas. She has associated nausea and vomiting and abdominal pain. Reviewed: CT of the abdomen showed: Moderate sized right pleural effusion with consolidation in the right lung base; Nonspecific, nonobstructive bowel gas pattern most consistent with a mild ileus; Moderate amount of ascitic fluid; Decrease in size in the hematoma in the left gluteal region. Checked serial KUBs which showed nonspecific bowel gas and a large amount of stool. - No improvement with enemas - Continue Katalina-Colace and add MiraLAX - GI consulted, recommended bowel prep and colonoscopy, results pending - Symptoms seeming to improve after bowel prep - Cleared by GI for discharge Pneumonia/hypoxia Reviewed: O2 saturation down to 87%. Chest x-ray with bibasilar consolidation. Afebrile. - Incentive spirometry and Acapella - Scheduled and as needed nebs - Guaifenesin - Continue course of renally adjusted Levaquin - Patient had walk test and oxygen saturation dropped to 87%. - Home oxygen ordered, discussed risks/benefits, patient refuses home oxygen. ESRD On dialysis M//. - consulted nephrology for resumption of dialysis. - Caution with nephrotoxic agents including magnesium containing laxatives Hyponatremia Likely hypervolemic in the setting of ESRD. - dialysis as above. - follow BMP. Anemia, normocytic Likely s/t renal disease. Hgb is at baseline. - follow CBC. - Epo with dialysis as indicated. HTN Likely s/t renal disease and abdominal pain. Reasonably controlled. - Continue home meds. Bipolar disorder Mood seems stable. - continue home medications. Hypoglycemia while nothing by mouth - Hypoglycemia protocol Discharge Planning Discharge after dialysis today. Discussed with case management, case management plans to have the DCF investigate the patient's living situation. Problem Qualifiers (1) Pneumonia: Qualified Code: J18.1 - Pneumonia of right lower lobe due to infectious organism Jayson Salazar December 07, 2016 13:45
[2016-12-07] MEDS ORDERED: POLY17S PO (13:46)
[2016-12-07] MEDS ORDERED: POLYETHYLENE GLYCOL 17 GM PKG PO SCH (14:00)
[2016-12-07] MEDS: GELATIN 12 MM/7 MM FOAM TOP PRN (16:03)
[2016-12-07 18:00] VITALS: BP 116/57; PULSE 86; RESP 16; TEMP 97.6; O2SAT 92
[2016-12-07] MEDS: LURASIDONE 40 MG TAB PO SCH (18:00)
== END 2016-12-07 19:21 | disposition home or self-care (01) | DRG 388 ==
LOC: NEPC 19:44 → NEDA 23:03 → NEPGCP 12-02 04:23 → OBSVTOIN 12-04 09:49 → N07B 12-04 15:55
PROVIDERS: ADMIT Internal Medicine; ATTEND Internal Medicine
PROC: 5A1D60Z (ICD-10-PCS; principal; 2016-12-03)
PROC: 0DBN8ZX Excision of Sigmoid Colon, Via Natural or Artificial Opening Endoscopic, Diagnostic (ICD-10-PCS; 2016-12-04)
DX: K56.69 Other intestinal obstruction (principal); N18.6 End stage renal disease; J18.9 Pneumonia, unspecified organism; I12.0 Hypertensive chronic kidney disease with stage 5 chronic kidney disease or end stage renal disease; J44.0 Chronic obstructive pulmonary disease with (acute) lower respiratory infection; E87.1 Hypo-osmolality and hyponatremia; K59.00 Constipation, unspecified; F41.9 Anxiety disorder, unspecified; F17.210 Nicotine dependence, cigarettes, uncomplicated; N26.1 Atrophy of kidney (terminal); E87.6 Hypokalemia; E78.5 Hyperlipidemia, unspecified; D63.1 Anemia in chronic kidney disease; F31.9 Bipolar disorder, unspecified; Z99.2 Dependence on renal dialysis; E16.2 Hypoglycemia, unspecified
CPT/HCPCS: 71010; 74000; 74176; 76937; 80048; 80053; 82948; 83690; 83735; 84100; 85025; 85027; 88305; 90935; 94150; 94620; 94640; 94664; 94667; 94668; 96374; C9113; G0378; G8987-GP; G8988-GP; J1644; J2405; J7040; J7120; Q4081; Q9963

== ENCOUNTER 2016-12-15 16:27 | Inpatient (IN) | payer MEDICARE, OTHER ==
[~2016-12-15] VITALS: Ht 142.2 cm; Wt 59.9 kg
[~2016-12-15 16:27] MED LIST changes: +LEVO500T8 PO; +OXYGENTANK NAS.CANULA; +PERI8.6T PO; +POLY17S PO
[2016-12-15 16:28] VITALS: BP 154/69; PULSE 64; RESP 18; TEMP 98; O2SAT 98
[2016-12-15] MEDS ORDERED: SODIUM CHLOR 0.9% 1000 ML INJ 1,000 ML IV SCH (16:50)
[2016-12-15] MEDS ORDERED: ONDANSETRON HCL 4 MG/2 ML VIAL IVP ONE (17:00)
[2016-12-15] MEDS ORDERED: SODIUM CHLORIDE 0.9% FLUSH 10 ML FLUSH IV FLUSH PRN ×2 (17:00→19:00)
--- NOTE | 2016-12-15 17:07 | PD ---
HPI Chief Complaint: GI Complaint Time Seen by Provider: 16:55 Travel History International Travel<30 days: No Contact w/Intl Traveler<30days: No Traveled to known affect area: No History of Present Illness HPI 51-year-old female with history of hypertension, end-stage renal disease on dialysis, last had dialysis yesterday, recently admitted for hyponatremia and ileus, had a colonoscopy done last week for this, presents to the ER today because her states that she is continuing to have nausea, vomiting, has not had a bowel movement in 5 days. She has been looking more lethargic and weak. They deny any fevers or any other issues. She is not able to eat well due to nausea and vomiting. Modifying Factors: None Associated Signs & Symptoms: Nausea, vomiting, constipation for 5 days, general weakness, lethargic Risk Factors: End-stage renal disease, recent ileus and colonoscopy PFSH Past Medical History Hx Anticoagulant Therapy: Yes (PLAVIX) Asthma: No Blood Disorders: No Bipolar Disorder: Yes (A/V HALLUCINATION) Anxiety: Yes Depression: Yes Heart Rhythm Problems: No Cancer: No Cardiovascular Problems: Yes High Cholesterol: No Chest Pain: No Congestive Heart Failure: No COPD: Yes Diabetes: Yes Dialysis: Yes (WEDNESDAYS AND FRIDAYS) Diminished Hearing: No Endocrine: Yes Genitourinary: Yes Immune Disorder: No Implanted Vascular Access Dvce: Yes Kidney Stones: No Musculoskeletal: No Neurologic: No Psychiatric: Yes Reproductive: No Respiratory: Yes (EMPHYSEMA AND COPD) Renal Failure: Yes (IS ON DIALYSIS) Schizophrenia: Yes Sleep Apnea: No Thyroid Disease: No Menopausal: Yes : 4 Para: 3 : 1 Past Surgical History Body Medical Devices: A/V SHUNT- LEFT CHEST Section: Yes Gynecologic Surgery: Yes ( X 3 ) Other Surgery: Yes (cyst ovary drained/ AV- SHUNT- LEFT CHEST-) Social History Alcohol Use: No Tobacco Use: Yes (1/2ppd) Substance Use: Yes (Past hx of crack and marijuana abuse) Allergies-Medications (Allergen,Severity, Reaction): Coded Allergies: No Known Allergies (Unverified , 12/01/16) Reported Meds & Prescriptions Reported Meds & Active Scripts Active Polyethylene Glycol 3350 Powder (Polyethylene Glycol) 17 Gm Pow 17 Gm PO DAILY 14 Days Katalina-Colace (Sennosides-Docusate Sodium) 8.6-50 Mg Tab 1 Tab PO BID Levofloxacin 500 Mg Tablet 500 Mg PO Q48H Oxygen tank (Oxygen) 1 Ea Tank 2 Liter JOSIAH.CANULA CONTINUOUS Oxygen Concentrator Portable Gaseous 2 L/min via Nasal Cannula Continuous For 99 months Sensipar (Cinacalcet) 60 Mg Tab 60 Mg PO DAILY With Dinner Plavix (Clopidogrel Bisulfate) 75 Mg Tab 75 Mg PO DAILY Losartan (Losartan Potassium) 50 Mg Tab 50 Mg PO DAILY Latuda (Lurasidone) 40 Mg Tab 40 Mg PO WITH DINNER Trazodone (Trazodone HCl) 50 Mg Tab 75 Mg PO HS Hydrocodone-Acetaminophen 7.5-325 mg Tab 1 Tab PO Q4H PRN Benztropine (Benztropine Mesylate) 2 Mg Tab 2 Mg PO Q12HR 10 Days Reported Auryxia (Ferric Citrate) 210 Mg Tab Tab PO TID Auryxia (Ferric Citrate) 210 Mg Tab 210 Mg PO 2-3 TIMES A DAY Take with meals 2-3 times a day Atorvastatin (Atorvastatin Calcium) 20 Mg Tab 20 Mg PO HS Neurontin (Gabapentin) 100 Mg Cap 200 Mg PO BID Reglan (Metoclopramide HCl) 5 Mg Tab 5 Mg PO TIDAC Nephrocaps (B-Complex W/ C & Folic Acid) 1 Cap 1 Cap PO DAILY If on dialysis, take after treatment. Lexapro (Escitalopram Oxalate) 10 Mg Tab 10 Mg PO DAILY Review of Systems ROS Limitations: Altered Mental Status Except as stated in HPI: all other systems reviewed are Neg (history of her ) Physical Exam Narrative GENERAL: Well-developed middle age white female patient currently in moderate distress. Awake, but lethargic. Mildly disoriented. SKIN: Focused skin assessment warm/dry. HEAD: Atraumatic. Normocephalic. EYES: Pupils equal and round. No scleral icterus. No injection or drainage. ENT: No nasal bleeding or discharge. Mucous membranes pink and moist. NECK: Trachea midline. No JVD. CARDIOVASCULAR: Regular rate and rhythm. No murmur appreciated. RESPIRATORY: No accessory muscle use. Clear to auscultation. Breath sounds equal bilaterally. GASTROINTESTINAL: Abdomen soft, right sided tenderness without guarding or rebound, nondistended. Hepatic and splenic margins not palpable. MUSCULOSKELETAL: No obvious deformities. No clubbing. No cyanosis. No edema. NEUROLOGICAL: Lethargic. No obvious cranial nerve deficits. Motor grossly within normal limits. Normal speech. PSYCHIATRIC: Appropriate mood and affect; insight and judgment normal. Data Data Last Documented VS Vital Signs Date Time Temp Pulse Resp B/P Pulse Ox O2 Delivery O2 Flow Rate FiO2 12/15/16 17:30 97 Room Air 12/15/16 16:28 98.0 64 18 154/69 Orders Complete Blood Count With Diff (12/15/16 16:50) Comprehensive Metabolic Panel (12/15/16 16:50) Lipase (12/15/16 16:50) Urinalysis - C+S If Indicated (12/15/16 16:50) Iv Access Insert/Monitor (12/15/16 16:50) Ecg Monitoring (12/15/16 16:50) Oximetry (12/15/16 16:50) Ondansetron Inj (Zofran Inj) (12/15/16 17:00) Sodium Chlor 0.9% 1000 Ml Inj (Ns 1000 M (12/15/16 16:50) Sodium Chloride 0.9% Flush (Ns Flush) (12/15/16 17:00) Abdomen, Flat & Upright (12/15/16 16:55) Admit Order (Ed Use Only) (12/15/16 18:58) Labs Laboratory Tests Test 12/15/16 18:00 White Blood Count 6.2 TH/MM3 Red Blood Count 3.57 MIL/MM3 Hemoglobin 10.1 GM/DL Hematocrit 31.6 % Mean Corpuscular Volume 88.5 FL Mean Corpuscular Hemoglobin 28.4 PG Mean Corpuscular Hemoglobin 32.1 % Concent Red Cell Distribution Width 17.0 % Platelet Count 168 TH/MM3 Mean Platelet Volume 8.9 FL Neutrophils (%) (Auto) 74.5 % Lymphocytes (%) (Auto) 14.8 % Monocytes (%) (Auto) 9.6 % Eosinophils (%) (Auto) 0.2 % Basophils (%) (Auto) 0.9 % Neutrophils # (Auto) 4.6 TH/MM3 Lymphocytes # (Auto) 0.9 TH/MM3 Monocytes # (Auto) 0.6 TH/MM3 Eosinophils # (Auto) 0.0 TH/MM3 Basophils # (Auto) 0.1 TH/MM3 CBC Comment DIFF FINAL Differential Comment Sodium Level 125 MEQ/L Potassium Level 4.2 MEQ/L Chloride Level 89 MEQ/L Carbon Dioxide Level 27.6 MEQ/L Anion Gap 8 MEQ/L Blood Urea Nitrogen 21 MG/DL Creatinine 4.40 MG/DL Estimat Glomerular Filtration 11 ML/MIN Rate Random Glucose 93 MG/DL Calcium Level 7.9 MG/DL Total Bilirubin 0.6 MG/DL Aspartate Amino Transf 50 U/L (AST/SGOT) Alanine Aminotransferase 24 U/L (ALT/SGPT) Alkaline Phosphatase 127 U/L Total Protein 6.4 GM/DL Albumin 2.7 GM/DL Lipase 84 U/L [facility] Medical Decision Making Medical Screen Exam Complete: Yes Emergency Medical Condition: Yes Medical Record Reviewed: Yes Interpretation(s) Laboratory Tests Test 12/15/16 18:00 Red Blood Count 3.57 MIL/MM3 (4.00-5.30) Hemoglobin 10.1 GM/DL (11.6-15.3) Hematocrit 31.6 % (35.0-46.0) Neutrophils (%) (Auto) 74.5 % (16.0-70.0) Monocytes (%) (Auto) 9.6 % (0.0-8.0) Lymphocytes # (Auto) 0.9 TH/MM3 (1.0-4.8) Sodium Level 125 MEQ/L (136-145) Chloride Level 89 MEQ/L (98-107) Blood Urea Nitrogen 21 MG/DL (7-18) Creatinine 4.40 MG/DL (0.50-1.00) Estimat Glomerular Filtration 11 ML/MIN (>89) Rate Calcium Level 7.9 MG/DL (8.5-10.1) Aspartate Amino Transf 50 U/L (15-37) (AST/SGOT) Alkaline Phosphatase 127 U/L (45-117) Albumin 2.7 GM/DL (3.4-5.0) Last 24 hours Impressions Abdomen X-Ray 12/15/16 [id number] Signed Impressions: Service Date/Time: Thursday, December 15, 2016 17:23 - CONCLUSION: 1. Probable right pleural effusion. 2. Constipation. No evidence of small bowel dilation. Frandy Arciniega MD Differential Diagnosis Nausea, vomiting, constipation, lethargydehydration versus metabolic issues versus obstruction versus ileus versus constipation Narrative Course Lab work shows significant hyponatremia. I suspect that this is causing some of her symptoms and may be secondary to the nausea and vomiting. X-ray of the abdomen did not show obvious obstruction but shows significant constipation. At this point, my plan would be to admit the patient for further treatment. Case was discussed with Dr. Davis for admission. Diagnosis Primary Impression: Hyponatremia Additional Impressions: Constipation Altered mental status Admitting Information Admitting Physician Requests: Admit Steph Deutsch MD Dec 15, 2016 17:07
[2016-12-15 17:30] VITALS: O2SAT 97
--- NOTE | 2016-12-15 17:51 | RADRPT ---
EXAM DATE/TIME: 12/15/2016 17:23 [facility] COMPARISON: No previous studies available for comparison. INDICATIONS : Constipation, Vomiting. MEDICAL HISTORY : Chronic obstructive pulmonary disease. Renal failure, acute. ESRD on SURGICAL HISTORY : None. ENCOUNTER: Initial ACUITY: 1 day PAIN SCORE: 0/10 LOCATION: Bilateral abdomen FINDINGS: There is increased opacity in the right costophrenic angle with meniscal interface suggesting right p leural effusion. The left lower lung is clear. Prominent amount of stool seen throughout the colon. No dilated loops of small bowel. Bilateral iliac stents in place. Osseous structures are grossly intact. CONCLUSION: 1. Probable right pleural effusion. 2. Constipation. No evidence of small bowel dilation. Frandy Arciniega MD on December 15, 2016 at 17:48 Board Certified Radiologist. This report was verified electronically.
[2016-12-15 18:18] LABS: AUTOMATED NEUTROPHIL # 4.6 TH/MM3 (1.8-7.7); BASOPHIL # 0.1 TH/MM3 (0-0.2); BASOPHIL % 0.9 % (0.0-2.0); EOSINOPHIL % 0.2 % (0.0-4.0); HEMATOCRIT 31.6 % (35.0-46.0); HEMO FLAGS DIFF FINAL; LYMPH % 14.8 % (9.0-44.0); LYMPHOCYTE # 0.9 TH/MM3 (1.0-4.8); MEAN CELL VOLUME 88.5 FL (80.0-100.0); MEAN CORPUSCULAR HEMOGLOBIN 28.4 PG (27.0-34.0); MEAN CORPUSCULAR HGB CONC 32.1 % (32.0-36.0); MONO % 9.6 % (0.0-8.0); NEUT % 74.5 % (16.0-70.0); PLATELET COUNT 168 TH/MM3 (150-450); RED BLOOD COUNT 3.57 MIL/MM3 (4.00-5.30); WHITE BLOOD COUNT 6.2 TH/MM3 (4.0-11.0)
[2016-12-15 18:33] LABS: ALT (GPT) 24 U/L (10-53)
[2016-12-15 18:34] LABS: ALKALINE PHOSPHATASE 127 U/L (45-117); TOTAL BILIRUBIN ADULT 0.6 MG/DL (0.2-1.0)
[2016-12-15 18:41] LABS: ANION GAP 8 MEQ/L (5-15); AST (GOT) 50 U/L (15-37); BICARBONATE 27.6 MEQ/L (21.0-32.0); BLOOD UREA NITROGEN 21 MG/DL (7-18); CHLORIDE 89 MEQ/L (98-107); GLOMERULAR FILTRATION RATE 11 ML/MIN (>89); SODIUM (NA) 125 MEQ/L (136-145)
[2016-12-15 18:43] LABS: POTASSIUM 4.2 MEQ/L (3.5-5.1)
[2016-12-15] MEDS ORDERED: BISACODYL 10 MG SUPP RECTAL PRN (19:00)
[2016-12-15] MEDS ORDERED: SENNOSIDES 8.6 MG TAB PO PRN (19:00)
[2016-12-15] MEDS ORDERED: MAGNESIUM HYDROXIDE SUSP 30 ML CUP PO PRN (19:00)
[2016-12-15] MEDS ORDERED: NALOXONE HCL 0.4 MG/ML AMP IV PRN (19:00)
[2016-12-15] MEDS ORDERED: LACTULOSE SYRUP 20 GM/30 ML CUP PO PRN (19:00)
[2016-12-15 22:00] VITALS: BP 148/68; PULSE 68; RESP 20; TEMP 98.2; O2SAT 99
[2016-12-15] MEDS: SODIUM CHLORIDE 0.9% FLUSH 10 ML FLUSH IV FLUSH SCH (22:18)
[2016-12-15] MEDS: DOCUSATE SODIUM 50 MG/SENNA 8.6 MG TAB PO SCH (22:19)
[2016-12-15] MEDS: HEPARIN SODIUM - SQ 10,000 UNITS/ML VIAL SQ SCH (22:19)
[2016-12-15 22:26] VITALS: BP 166/70; PULSE 61; RESP 20; TEMP 97.5; O2SAT 99
--- NOTE | 2016-12-15 23:09 | HHI.HP ---
[facility] Service [facility] Primary Care Physician Ashley Wilhelm MD Admission Diagnosis severe hyponatremia/intractable vomiting/severe constipation Diagnoses: Chief Complaint: Constipation 5 days with abdominal pain Travel History International Travel<30 Days: No Contact w/Intl Traveler <30 Da: No Traveled to Known Affected Are: No History of Present Illness Written by Sherrill Mondragon, acting as scribe for Dr. Taylor on 12/15/16 at 23: 09. The patient is a 51-year-old female with a past medical history of end-stage renal disease on dialysis who is presenting to the hospital with abdominal pain , constipation x5 days, and nausea and vomiting. Patient is a poor historian and unable to provide specific details per her report to ER physician patient has been constipated 5 days patient reports been, "a long time," but is unable to give specific amount of days. Patient complains of generalized abdominal pain which she describes as bloating/cramping pain 5 out of 10. Patient also reports she is unable to tolerate by mouth intake reports nausea and vomiting times one earlier today with discharged to eat. Patient does not believe she is passing gas at this time reports she passed gas yesterday the day before but not today. Patient reports her abdomen is getting increasingly larger and she's becoming increasingly more uncomfortable. Patient was recently admitted 12/02/2016 for ileus and hyponatremia. Review of Systems ROS Limitations: Poor Historian Except as stated in HPI: all other systems reviewed are Neg Past Family Social History Past Medical History ESRD Bipolar disorder HTN HLP COPD Hx of cocaine/THC use Past Surgical History A/V shunt X 3 Ovarian cyst drainage Reported Medications Current Medications Medications (Trade) Dose Ordered Sig/Lora Route Start Time Stop Time Status Last Admin (NS Flush) 2 ml UNSCH PRN IV FLUSH 12/15/16 19:00 (NS Flush) 2 ml BID IV FLUSH 12/15/16 21:00 12/15/16 22:18 (Heparin Inj) 5,000 units Q12H SQ 12/15/16 20:00 12/15/16 22:19 (Narcan Inj) 0.4 mg UNSCH PRN IV 12/15/16 19:00 (Katalina-Colace) 1 tab BID PO 12/15/16 21:00 12/15/16 22:19 (Senokot) 17.2 mg Q12H PRN PO 12/15/16 19:00 (Dulcolax Supp) 10 mg DAILY PRN RECTAL 12/15/16 19:00 (Lactulose Liq) 30 ml DAILY PRN PO 12/15/16 19:00 Allergies: Coded Allergies: No Known Allergies (Unverified , 12/01/16) Active Ordered Medications Current Medications Medications (Trade) Dose Ordered Sig/Lora Route Start Time Stop Time Status Last Admin (NS Flush) 2 ml UNSCH PRN IV FLUSH 12/15/16 19:00 (NS Flush) 2 ml BID IV FLUSH 12/15/16 21:00 12/15/16 22:18 (Heparin Inj) 5,000 units Q12H SQ 12/15/16 20:00 12/15/16 22:19 (Narcan Inj) 0.4 mg UNSCH PRN IV 12/15/16 19:00 (Katalina-Colace) 1 tab BID PO 12/15/16 21:00 12/15/16 22:19 (Senokot) 17.2 mg Q12H PRN PO 12/15/16 19:00 (Dulcolax Supp) 10 mg DAILY PRN RECTAL 12/15/16 19:00 (Lactulose Liq) 30 ml DAILY PRN PO 12/15/16 19:00 Family History CAD Breast cancer Social History She continues to smoke. She denies alcohol. She has not used drugs in about 7 years. Has a history of cocaine and THC use Physical Exam Vital Signs Vital Signs Date Time Temp Pulse Resp B/P Pulse Ox O2 Delivery O2 Flow Rate FiO2 12/15/16 22:26 97.5 61 20 166/70 99 12/15/16 22:00 98.2 68 20 148/68 99 12/15/16 17:30 97 Room Air 12/15/16 16:28 98.0 64 18 154/69 98 Physical Exam GENERAL: This is a well-nourished, well-developed patient, appears uncomfortable SKIN: No rashes, ecchymoses or lesions. Cool and dry. Oral mucosa Spicer and mucous membranes appear dry, skin also appears dry HEAD: Atraumatic. Normocephalic. No temporal or scalp tenderness. EYES: Pupils equal round and reactive. Extraocular motions intact. No scleral icterus. No injection or drainage. CARDIOVASCULAR: Difficult to auscultate has patient has dialysis fistula left upper chest RESPIRATORY: Clear to auscultation. Breath sounds equal bilaterally. No wheezes , rales, or rhonchi. GASTROINTESTINAL: Abdomen with generalized tenderness, distended, and absent bowel sounds all 4 quadrants MUSCULOSKELETAL: Bilateral lower extremity 1+ pitting edema No calf tenderness. Negative Homans sign bilaterally. NEUROLOGICAL: Awake and alert. No focal deficits appreciated. Motor and sensory grossly within normal limits. 4 out of 5 muscle strength in all muscle groups. Normal speech. Laboratory Laboratory Tests Test 12/15/16 18:00 White Blood Count 6.2 Red Blood Count 3.57 Hemoglobin 10.1 Hematocrit 31.6 Mean Corpuscular Volume 88.5 Mean Corpuscular Hemoglobin 28.4 Mean Corpuscular Hemoglobin 32.1 Concent Red Cell Distribution Width 17.0 Platelet Count 168 Mean Platelet Volume 8.9 Neutrophils (%) (Auto) 74.5 Lymphocytes (%) (Auto) 14.8 Monocytes (%) (Auto) 9.6 Eosinophils (%) (Auto) 0.2 Basophils (%) (Auto) 0.9 Neutrophils # (Auto) 4.6 Lymphocytes # (Auto) 0.9 Monocytes # (Auto) 0.6 Eosinophils # (Auto) 0.0 Basophils # (Auto) 0.1 CBC Comment DIFF FINAL Differential Comment Sodium Level 125 Potassium Level 4.2 Chloride Level 89 Carbon Dioxide Level 27.6 Anion Gap 8 Blood Urea Nitrogen 21 Creatinine 4.40 Estimat Glomerular Filtration 11 Rate Random Glucose 93 Calcium Level 7.9 Total Bilirubin 0.6 Aspartate Amino Transf 50 (AST/SGOT) Alanine Aminotransferase 24 (ALT/SGPT) Alkaline Phosphatase 127 Total Protein 6.4 Albumin 2.7 Lipase 84 Result Diagram: 12/15/16 1800 12/15/16 1800 Imaging Last Impressions Abdomen X-Ray 12/15/16 [id number] Signed Impressions: Service Date/Time: Thursday, December 15, 2016 17:23 - CONCLUSION: 1. Probable right pleural effusion. 2. Constipation. No evidence of small bowel dilation. Frandy Arciniega MD Assessment and Plan Problem List: (1) Constipation ICD Code: K59.00 Status: Acute (2) Hyponatremia ICD Code: E87.1 Status: Acute Assessment and Plan The patient is a 51-year-old female with a past medical history of end-stage renal disease on dialysis who is presenting to the hospital with abdominal pain , constipation x5 days, and nausea and vomiting. Patient is a poor historian and unable to provide specific details per her report to ER physician patient has been constipated 5 days patient reports been, "a long time," but is unable to give specific amount of days. Patient complains of generalized abdominal pain, unable to tolerate by mouth intake reports nausea and vomiting. Patient no longer passing flatus. Patient was recently admitted 12/02/2016 for ileus and hyponatremia. Hyponatremia sodium 125 and review of prior records this is possibly chronic Patient has received 1 L normal saline bolus in the emergency department. As patient is end-stage renal disease on hemodialysis would not give further fluids at this time recheck sodium level in a.m. Constipation- acute with recent hospitalization 12/02/2016 for ileus K reviewed and reveals probable right pleural effusion constipation no evidence of small bowel dilation Patient started on lactulose Soapsuds enema ordered If no result from soapsuds enema may need GI consultation End-stage renal disease on HD-chronic Follows with Dr. Vinson as outpatient Consult nephrology for assistance in management of hemodialysis DVT prophylaxis with heparin subcutaneous Discussed with ER provider, nursing inpatient Sherrill Mondragon Dec 15, 2016 23:09
[2016-12-15] MEDS ORDERED: GLUCAGON 1 MG/ML VIAL OTHER PRN (23:45)
[2016-12-15] MEDS ORDERED: PILL SPLITTER OTHER PRN (23:45)
[2016-12-16 04:08] VITALS: BP 138/60; PULSE 58; RESP 20; TEMP 97.8; O2SAT 97
[2016-12-16] MEDS: INSULIN ASPART SUPPLEMENTAL SCALE SQ SCH ×4 (05:54→21:00)
[2016-12-16 07:06] LABS: AUTOMATED NEUTROPHIL # 3.6 TH/MM3 (1.8-7.7); BASOPHIL % 0.7 % (0.0-2.0); EOSINOPHIL % 0.3 % (0.0-4.0); HEMATOCRIT 28.5 % (35.0-46.0); HEMO FLAGS DIFF FINAL; LYMPH % 18.3 % (9.0-44.0); LYMPHOCYTE # 0.9 TH/MM3 (1.0-4.8); MEAN CELL VOLUME 87.6 FL (80.0-100.0); MONO % 10.1 % (0.0-8.0); NEUT % 70.6 % (16.0-70.0); PLATELET COUNT 148 TH/MM3 (150-450); RED BLOOD COUNT 3.25 MIL/MM3 (4.00-5.30); RED CELL DISTRIBUTION WIDTH 16.7 % (11.6-17.2)
[2016-12-16 07:16] VITALS: BP 146/65; PULSE 59; RESP 20; TEMP 97.9; O2SAT 98
[2016-12-16 07:23] LABS: BICARBONATE 27.5 MEQ/L (21.0-32.0); POTASSIUM 3.2 MEQ/L (3.5-5.1)
[2016-12-16] MEDS ORDERED: FERRIC CITRATE 210 MG PO SCH (08:00)
[2016-12-16] MEDS ORDERED: DOCUSATE SODIUM 50 MG/SENNA 8.6 MG TAB PO SCH (09:00)
[2016-12-16] MEDS: METOCLOPRAMIDE HCL 10 MG TAB PO SCH ×3 (09:26→17:22)
[2016-12-16] MEDS: CINACALCET HYDROCHLORIDE 30 MG TAB PO SCH (09:27)
[2016-12-16] MEDS: VITAMIN B CMPLX/VITC/FOLIC AC CAP PO SCH (09:27)
[2016-12-16] MEDS: GABAPENTIN 100 MG CAP PO SCH ×2 (09:27→21:11)
[2016-12-16] MEDS: SODIUM CHLORIDE 0.9% FLUSH 10 ML FLUSH IV FLUSH SCH ×2 (09:28→21:12)
[2016-12-16] MEDS: ESCITALOPRAM OXALATE 10 MG TAB PO SCH (09:28)
[2016-12-16] MEDS: BENZTROPINE MESYLATE 2 MG TAB PO SCH ×2 (09:28→21:09)
[2016-12-16] MEDS: LOSARTAN 50 MG TAB PO SCH (09:28)
[2016-12-16] MEDS: DOCUSATE SODIUM 50 MG/SENNA 8.6 MG TAB PO SCH ×2 (09:28→21:10)
[2016-12-16] MEDS: HEPARIN SODIUM - SQ 10,000 UNITS/ML VIAL SQ SCH ×2 (09:29→21:12)
--- NOTE | 2016-12-16 10:02 | PD.CONS ---
HPI History of Present Illness This is a 51 year old female with hx ESRD and severe constipation who presented to ER yesterday with constipation. She cannot remember when she last had BM. She is having abdominal pain diffusely. She is nauseated. she threw up yesterday, no blood. NO vomiting today. She is able to tolerate juice. She started miralax yesterday but then her decided she should come to the ER. XRay shows constipation, no sm bowel dilatation. She was here previously for similar and had colonoscopy 12-04-16 --> poor prep but no large or obstructive lesions, her symptoms improved with the bowel prep. PFSH Past Medical History ESRD Bipolar disorder HTN HLP COPD Hx of cocaine/THC use Past Surgical History A/V shunt X 3 Ovarian cyst drainage Coded Allergies: No Known Allergies (Unverified , 12/01/16) Family History CAD Breast cancer Social History She continues to smoke. She denies alcohol. She has not used drugs in about 7 years. Has a history of cocaine and THC use Review of Systems Constitutional: DENIES: Fever Eyes: DENIES: Blurred vision Ears, nose, mouth, throat: DENIES: Hearing loss Respiratory: COMPLAINS OF: Wheezing Cardiovascular: DENIES: Chest pain Gastrointestinal: COMPLAINS OF: Abdominal pain, Constipation, Nausea, Vomiting , DENIES: Black stools, Bloody stools, Diarrhea, Hematemesis Musculoskeletal: DENIES: Joint pain Integumentary: DENIES: Rash Neurologic: COMPLAINS OF: Abnormal gait (ambulates with walker) Psychiatric: DENIES: Confusion GI Exam Vitals I&O Vital Signs Date Time Temp Pulse Resp B/P Pulse Ox O2 Delivery O2 Flow Rate FiO2 12/16/16 07:16 97.9 59 20 146/65 98 12/16/16 04:08 97.8 58 20 138/60 97 12/15/16 22:26 97.5 61 20 166/70 99 12/15/16 22:00 98.2 68 20 148/68 99 12/15/16 17:30 97 Room Air 12/15/16 16:28 98.0 64 18 154/69 98 Imaging Last Impressions Abdomen X-Ray 12/15/16 1690 Signed Impressions: Service Date/Time: Thursday, December 15, 2016 17:23 - CONCLUSION: 1. Probable right pleural effusion. 2. Constipation. No evidence of small bowel dilation. Frandy Arciniega MD Laboratory Test 12/15/16 12/16/16 18:00 05:34 White Blood Count 6.2 TH/MM3 5.0 TH/MM3 Red Blood Count 3.57 MIL/MM3 3.25 MIL/MM3 Hemoglobin 10.1 GM/DL 9.1 GM/DL Hematocrit 31.6 % 28.5 % Mean Corpuscular Volume 88.5 FL 87.6 FL Mean Corpuscular Hemoglobin 28.4 PG 28.0 PG Mean Corpuscular Hemoglobin 32.1 % 32.0 % Concent Red Cell Distribution Width 17.0 % 16.7 % Platelet Count 168 TH/MM3 148 TH/MM3 Mean Platelet Volume 8.9 FL 8.4 FL Neutrophils (%) (Auto) 74.5 % 70.6 % Lymphocytes (%) (Auto) 14.8 % 18.3 % Monocytes (%) (Auto) 9.6 % 10.1 % Eosinophils (%) (Auto) 0.2 % 0.3 % Basophils (%) (Auto) 0.9 % 0.7 % Neutrophils # (Auto) 4.6 TH/MM3 3.6 TH/MM3 Lymphocytes # (Auto) 0.9 TH/MM3 0.9 TH/MM3 Monocytes # (Auto) 0.6 TH/MM3 0.5 TH/MM3 Eosinophils # (Auto) 0.0 TH/MM3 0.0 TH/MM3 Basophils # (Auto) 0.1 TH/MM3 0.0 TH/MM3 CBC Comment DIFF FINAL DIFF FINAL Differential Comment Sodium Level 125 MEQ/L 128 MEQ/L Potassium Level 4.2 MEQ/L 3.2 MEQ/L Chloride Level 89 MEQ/L 89 MEQ/L Carbon Dioxide Level 27.6 MEQ/L 27.5 MEQ/L Anion Gap 8 MEQ/L 12 MEQ/L Blood Urea Nitrogen 21 MG/DL 25 MG/DL Creatinine 4.40 MG/DL 4.71 MG/DL Estimat Glomerular Filtration 11 ML/MIN 10 ML/MIN Rate Random Glucose 93 MG/DL 77 MG/DL Calcium Level 7.9 MG/DL 7.8 MG/DL Total Bilirubin 0.6 MG/DL Aspartate Amino Transf 50 U/L (AST/SGOT) Alanine Aminotransferase 24 U/L (ALT/SGPT) Alkaline Phosphatase 127 U/L Total Protein 6.4 GM/DL Albumin 2.7 GM/DL Lipase 84 U/L Physical Examination HEENT: EOMI; normocephalic; atraumatic; no jaundice. CHEST: CTA CARDIAC: RRR, + murmur ABDOMEN: Soft, distended, nontender, tympanitic, bowel sounds are present in all four quadrants. EXTREMITIES: No clubbing, cyanosis, or edema. SKIN: no rash; no jaundice. PRODUCT MARKETING DIRECTOR: No focal deficits; alert and oriented times three. Assessment and Plan Plan ASSESSMENT - constipation - pt cannot recall last BM. Xray --> constipation, no small bowel dilatation. Colonoscopy 12-04-16--> poor prep but no large or obstructive lesions. Repeat colonoscopy was recommended. Has been here recently for same complaint and had positive results with bowel prep. Will do 2 rounds GoLytely and then repeat colonoscopy Wednesday. PLAN - Colonoscopy Wednesday12/18/16 - obtain consents - GoLytely today, tomorrow - clears - NPO after midnight - further recommendations to follow This pt seen by myself and DR Garrett and this note is written on his behalf Jaycee Chamorro Dec 16, 2016 10:02
[2016-12-16] MEDS ORDERED: SODIUM CHLOR 0.9% 1000 ML INJ 1,000 ML IV PRN ×3 (10:22)
[2016-12-16] MEDS ORDERED: NITROGLYCERIN 0.4 MG SL 25 TABS/BTL SL PRN (10:30)
[2016-12-16] MEDS ORDERED: ACETAMINOPHEN 325 MG TAB PO PRN (10:30)
[2016-12-16] MEDS ORDERED: SODIUM CHLORIDE 0.9% FLUSH 10 ML FLUSH IV FLUSH PRN (10:30)
[2016-12-16] MEDS ORDERED: HEPARIN SODIUM - IV 10,000 UNITS/10 ML VIAL PRN (10:30)
[2016-12-16] MEDS ORDERED: HEPARIN SODIUM - IV 10,000 UNITS/10 ML VIAL IVF PRN (10:30)
[2016-12-16] MEDS ORDERED: ALBUMIN HUMAN 25% 25 GM/100 ML BAGP IV PRN (10:30)
[2016-12-16] MEDS ORDERED: cloNIDine HCL 0.1 MG TAB PO PRN (10:30)
[2016-12-16] MEDS ORDERED: diphenhydrAMINE HCL 25 MG CAP PO PRN (10:30)
[2016-12-16] MEDS ORDERED: MANNITOL 12.5 GM/50 ML VIAL IV PRN (10:30)
[2016-12-16] MEDS ORDERED: ONDANSETRON HCL 4 MG/2 ML VIAL IV PRN (10:30)
[2016-12-16] MEDS ORDERED: GENTAMICIN SULFATE (DIALYSIS USE ONLY) 20 MG/2 ML VIAL IV PRN (10:30)
[2016-12-16] MEDS: CLOPIDOGREL 75 MG TAB PO SCH (10:42)
[2016-12-16 10:45] VITALS: O2SAT 96
--- NOTE | 2016-12-16 10:53 | MB ---
cc: KYM SALAMANCA MD DATE OF CONSULTATION 12/16/2016 REASON FOR CONSULTATION: End-stage renal disease on hemodialysis for management. HISTORY OF PRESENT ILLNESS This is a 51-year-old female with a past medical history of end-stage renal disease on hemodialysis Wednesday, Wednesday and Wednesday. He has been following with Dr. Vinson for a history of chronic anemia, diabetes mellitus, hypertension, anxiety and bipolar disorder. He came in with a complaint of nausea, vomiting and abdominal distension with constipation. I was called to see the patient because of management of dialysis. She has been on hemodialysis Wednesday, Wednesday and Wednesday. She was recently discharged from the hospital on December 07. At that time, there was possible ALS was her diagnosis and according to the patient since then, she does not have any bowel movement and is having more abdominal distension and having more nausea than vomiting and just vomited once since yesterday, but not eating well and having some bloating and cramping in the upper abdominal area. She denies any history of fever. No shortness of breath. No chest pain. She has AV graft in the left upper chest area through which she is getting the dialysis. PAST MEDICAL HISTORY 1. Hypertension 2. Chronic obstructive pulmonary disease 3. Bipolar disorder 4. End-stage renal disease on hemodialysis PAST SURGICAL HISTORY 1. Multiple surgeries for AV fistula and graft 2. section 3. Ovarian cyst drainage REVIEW OF SYSTEMS The patient has generalized weakness, feeling tired. There is no history of fever. No sore throat. She denies any shortness of breath. No chest pain. She has upper abdominal pain and bloating with distension. There is nausea and occasional vomiting. There is no blood in the vomitus. She has constipation, according to the patient, for the last two weeks. SOCIAL HISTORY The patient is a chronic smoker. There is no history of alcoholism. She has history of using cocaine and THC. FAMILY HISTORY Noncontributory ALLERGIES She has no known drug allergies. MEDICATIONS Currently she is on following medications: 1. Katalina-Colace 1 tablet b.i.d. 2. Neurontin 200 mg b.i.d. 3. Nephrocaps 1 capsule daily 4. Plavix 75 mg daily 5. Lexapro 10 mg once a day 6. Losartan 50 mg once a day 7. Sensipar 60 mg daily 8. Latuda 40 mg with dinner 9. Lipitor 20 mg q.h.s. 10. Desyrel 75 mg q.h.s. 11. Heparin 5000 units subcu q.12 h. 12. Cogentin 2 mg q.12 h. 13. Insulin aspart sliding scale 14. Reglan 5 mg t.i.d. a.c. 15. Marcaine as needed 16. Senokot as needed 17. Lactulose as needed PHYSICAL EXAM On examination, the patient is awake and alert. She is sitting on the bed with mild abdominal discomfort. VITAL SIGNS: Her last blood pressure is 146/65 temperature 97.9, oxygen saturation on room air is 97-98%. HEAD, EYES, EARS, NOSE, AND THROAT: Pupils equally reacting to light. Nonicteric sclerae. Conjunctiva pale. NECK: Supple. JVD is not elevated. LUNGS: The patient has bilateral decreased air entry with occasional wheezing. HEART: S1 and S2 regular rhythm. ABDOMEN: Distended with mild epigastric tenderness. There is no rebound or rigidity. Bowel sounds decreased. EXTREMITIES: She has no pedal edema. INVESTIGATIONS WBC count is 5.0, hemoglobin 9.1, platelet count 148, neutrophils 70.6%. Sodium 128, potassium 3.2, chloride 89, bicarb 27.5, BUN 25, creatinine 4.7, calcium is 7.8, AST is 50, ALT is 24, total protein is 6.4 with an albumin of 2.7. Lipase is 84. IMAGING STUDIES The patient had an abdominal x-ray done and it shows possible right pleural effusion with constipation and no evidence of a small bowel dilatation. ASSESSMENT/PLAN 1. Constipation, nausea and vomiting. 2. End-stage renal disease on hemodialysis. 3. Hyponatremia 4. Anemia 5. History of hypertension. The patient has a second admission with the same type of complaint. At this time, it seems like the abdominal distension is more. Her hyponatremia is contributed by decreased oral intake and taking more fluid, GI has been consulted. She is currently on a clear liquid diet. Hemodynamically she is stable. The potassium is on the lower side and hemoglobin is 9.1, so she will be having dialysis today. I already called the dialysis. Her hyponatremia should improve with dialysis and we will use high concentration of potassium during dialysis. Thank you for the consultation and I will follow the patient while she is in the hospital. MD SARINA Tatum/DJL /10:19 AM /10:34 AM
--- NOTE | 2016-12-16 10:56 | HHI.PR ---
Subjective Remarks Follow-up for abdominal pain and constipation. The patient states she hasn't had a bowel movement in about a week. She complains of abdominal pain and distention. She states she had an episode of vomiting yesterday, has been tolerating clear liquids overnight. She states that she had been taking MiraLAX at home with no improvement. She states she had an enema yesterday with no stool output. Objective Vitals Vital Signs Date Time Temp Pulse Resp B/P Pulse Ox O2 Delivery O2 Flow Rate FiO2 12/16/16 10:45 96 21 12/16/16 07:16 97.9 59 20 146/65 98 12/16/16 04:08 97.8 58 20 138/60 97 12/15/16 22:26 97.5 61 20 166/70 99 12/15/16 22:00 98.2 68 20 148/68 99 12/15/16 17:30 97 Room Air 12/15/16 16:28 98.0 64 18 154/69 98 Result Diagram: 12/16/16 0534 12/16/16 0534 Imaging Last Impressions Abdomen X-Ray 12/15/16 165 Signed Impressions: Service Date/Time: Thursday, December 15, 2016 17:23 - CONCLUSION: 1. Probable right pleural effusion. 2. Constipation. No evidence of small bowel dilation. Frandy Arciniega MD Objective Remarks GENERAL: Well-developed well-nourished. In no acute distress. SKIN: Warm and dry. No lesions noted. HEENT: Normocephalic. Pupils equal and round. Mucous membranes dry CARDIOVASCULAR: Regular rate and rhythm. No murmur appreciated. RESPIRATORY: No accessory muscle use. Clear to auscultation. Breath sounds equal bilaterally. GASTROINTESTINAL: Abdomen tense, mild generalized TTP, mildly distended. Bowel sounds diminished. MUSCULOSKELETAL: No obvious deformities. No clubbing or cyanosis. No edema. NEUROLOGICAL: Awake and alert. No focal neurological deficits. Moves upper and lower extremities spontaneously. Normal speech. PSYCHIATRIC: Appropriate mood and affect; insight and judgment normal. A/P Problem List: (1) Constipation ICD Code: K59.00 Status: Acute (2) Hyponatremia ICD Code: E87.1 Status: Acute Assessment and Plan The patient is a 51-year-old female with a past medical history of end-stage renal disease on dialysis who is presenting to the hospital with abdominal pain , constipation x5 days, and nausea and vomiting. Patient complains of generalized abdominal pain, unable to tolerate by mouth intake reports nausea and vomiting. Patient no longer passing flatus. Patient was recently admitted 12/02/2016 for ileus and hyponatremia. Constipation, recurrent: Recent hospitalization for the same. KUB with constipation and no bowel gas No improvement with enema. Started on Katalina-Colace and Reglan Consult GI End-stage renal disease on HD-chronic Consult nephrology for assistance in management of hemodialysis Monitor and replenish electrolytes as needed Hyponatremia: sodium 125, likely chronic due to ESRD and upon review previous labs. Monitor Pleural effusion: Chronic. Seen again on KUB. Patient previously refused home O2. Currently satting well on room air. Other chronic medical conditions include bipolar, HTN, HLD, COPD: Stable at this time and will continue home medications as indicated. DVT prophylaxis with heparin subcutaneous Discharge Planning 1445 discussed with case management, patient meets inpatient criteria for hyponatremia Jayson Salazar Dec 16, 2016 10:56
[2016-12-16] MEDS ORDERED: PEG (High)/E-LYTE SOLN 4000 ML BTL PO ONE (12:15)
[2016-12-16] MEDS: EPOETIN ALFA 10,000 UNITS/ML VIAL IV PRN (14:00)
[2016-12-16] MEDS: GELATIN 12 MM/7 MM FOAM TOP PRN (14:08)
[2016-12-16 16:35] VITALS: BP 127/60; PULSE 62; RESP 17; TEMP 97.9; O2SAT 97
[2016-12-16] MEDS: LURASIDONE 40 MG TAB PO SCH (17:23)
[2016-12-16 17:49] LABS: HEMOGLOBIN A1a 0.9 %; HEMOGLOBIN A1b 0.7 %; HEMOGLOBIN Ao 86.6 %; HEMOGLOBIN F 1.3 %; HEMOGLOBIN LA1C 1.7 %; HEMOGLOBIN P3 3.5 %
[2016-12-16 18:00] VITALS: BP 172/74; PULSE 60; RESP 20; TEMP 97.4; O2SAT 97
[2016-12-16 20:00] VITALS: BP 157/70; PULSE 62; RESP 21; TEMP 96.8; O2SAT 100
[2016-12-16] MEDS: traZODone HCL 50 MG TAB PO SCH (21:09)
[2016-12-16] MEDS: ATORVASTATIN 20 MG TAB PO SCH (21:10)
[2016-12-17] VITALS (7 sets, daily range): BP systolic 93–142; BP diastolic 52–65; PULSE 59–66; RESP 18–20; TEMP 96.1–97.6; O2SAT 95–98
[2016-12-17] MEDS: INSULIN ASPART SUPPLEMENTAL SCALE SQ SCH ×4 (06:06→21:00)
[2016-12-17] MEDS: SODIUM CHLORIDE 0.9% FLUSH 10 ML FLUSH IV FLUSH SCH ×2 (09:00→21:36)
[2016-12-17] MEDS: METOCLOPRAMIDE HCL 10 MG TAB PO SCH ×3 (09:06→17:29)
[2016-12-17] MEDS: VITAMIN B CMPLX/VITC/FOLIC AC CAP PO SCH (09:07)
[2016-12-17] MEDS: CINACALCET HYDROCHLORIDE 30 MG TAB PO SCH (09:07)
[2016-12-17] MEDS: ESCITALOPRAM OXALATE 10 MG TAB PO SCH (09:07)
[2016-12-17] MEDS: BENZTROPINE MESYLATE 2 MG TAB PO SCH ×2 (09:08→21:35)
[2016-12-17] MEDS: GABAPENTIN 100 MG CAP PO SCH ×2 (09:08→21:34)
[2016-12-17] MEDS: DOCUSATE SODIUM 50 MG/SENNA 8.6 MG TAB PO SCH ×2 (09:08→21:34)
[2016-12-17] MEDS: LOSARTAN 50 MG TAB PO SCH (09:09)
[2016-12-17] MEDS: CLOPIDOGREL 75 MG TAB PO SCH (09:09)
[2016-12-17] MEDS: HEPARIN SODIUM - SQ 10,000 UNITS/ML VIAL SQ SCH ×2 (09:10→21:35)
--- NOTE | 2016-12-17 10:45 | HHI.NPPN ---
Subjective History of Present Illness 51-year-old female with a past medical history of end-stage renal disease on hemodialysis Wednesday, Wednesday and Wednesday. He has been following with Dr. Vinson for a history of chronic anemia, diabetes mellitus, hypertension, anxiety and bipolar disorder. He came in with a complaint of nausea, vomiting and abdominal distension with constipation. I was called to see the patient because of management of dialysis. She has been on hemodialysis Wednesday, Wednesday and Wednesday. Additional Remarks Patient is alert, has BM, now drinking Colyte, no nausea. Review of Systems General Constitutional: Fatigue Gastrointestinal Gastrointestinal: Abdominal Pain, Constipation Objective Data Data 12/16/16 12/17/16 19:00 07:00 Intake Total 480 ml Output Total 3000 ml 400 ml Balance -3000 ml 80 ml Intake Oral 480 ml Output Urine Total 400 ml Hemodialysis 3000 ml # Voids 3 Vital Signs Date Time Temp Pulse Resp B/P Pulse Ox O2 Delivery O2 Flow Rate FiO2 12/17/16 08:00 96.7 65 18 128/58 96 12/17/16 04:00 97.6 59 18 108/56 95 12/17/16 00:00 96.6 59 20 93/52 97 12/16/16 20:00 96.8 62 21 157/70 100 12/16/16 18:00 97.4 60 20 172/74 97 12/16/16 16:35 97.9 62 17 127/60 97 12/16/16 10:45 96 21 -: 12/16/16 0534 12/16/16 0534 Physical Exam General Appearance: No Acute Distress, Comfortable Eyes Eye Exam: Pupils Equal Throat Throat Exam: Oral Mucosa [place] & Moist Neck Neck Exam: Neck Supple Pulmonary Resp Exam: Breath Sounds Equal, No Distress, Decreased Bases, Diminished Breath Sounds Cardiology CV Exam: Regular, Normal Sinus Rhythm Gastrointestinal/Abdomen GI Exam: Soft, Non-Tender, Bowel Sounds Present, Distended Extremeties Extremities Exam: Trace Edema Neurologic Neuro Exam: Alert, Awake, Oriented Psychiatric Psych Exam: Appropriate Responses Assessment/Plan Assessment Summary: Anemia of CKD, End Stage Renal Disease Problem List: (1) Hyponatremia (2) COPD (chronic obstructive pulmonary disease) (3) Bipolar disorder (4) Anemia (5) ESRD (end stage renal disease) Plan Patient has HD done yesterday, tolerated well. Seen by GI, for colonoscopy in AM. BP is stable, HD again in AM. Jessica Colin MD Dec 17, 2016 10:45
[2016-12-17] MEDS ORDERED: PEG (High)/E-LYTE SOLN 4000 ML BTL PO ONE (12:15)
--- NOTE | 2016-12-17 13:43 | HHI.PR ---
Subjective Remarks Follow-up constipation/hyponatremia/end-stage renal disease requiring hemodialysis 12/17/16-patient seen and examined, taken GI prep for colonoscopy. Denies any shortness of breath. Vitals stable. Sodium 128 Objective Vitals Vital Signs Date Time Temp Pulse Resp B/P Pulse Ox O2 Delivery O2 Flow Rate FiO2 12/17/16 12:56 96.8 63 18 132/58 97 12/17/16 08:00 96.7 65 18 128/58 96 12/17/16 04:00 97.6 59 18 108/56 95 12/17/16 00:00 96.6 59 20 93/52 97 12/16/16 20:00 96.8 62 21 157/70 100 12/16/16 18:00 97.4 60 20 172/74 97 12/16/16 16:35 97.9 62 17 127/60 97 I/O 12/16/16 12/16/16 12/16/16 12/17/16 12/17/16 12/17/16 07:00 15:00 23:00 07:00 15:00 23:00 Intake Total 480 ml Output Total 3400 ml Balance -2920 ml Intake Oral 480 ml Output Urine Total 400 ml Hemodialysis 3000 ml # Voids 3 Result Diagram: 12/16/16 0534 12/16/16 0534 Imaging Last Impressions Abdomen X-Ray 12/15/16 1655 Signed Impressions: Service Date/Time: Thursday, December 15, 2016 17:23 - CONCLUSION: 1. Probable right pleural effusion. 2. Constipation. No evidence of small bowel dilation. Frandy Arciniega MD Objective Remarks GENERAL: NAD SKIN: Warm and dry. HEAD: Normocephalic. EYES: No scleral icterus. No injection or drainage. NECK: Supple, trachea midline. No JVD or lymphadenopathy. CARDIOVASCULAR: Regular rate and rhythm with II/ ROBEL RESPIRATORY: Breath sounds equal bilaterally. No accessory muscle use. GASTROINTESTINAL: Abdomen soft, non-tender, nondistended. Positive bowel sounds MUSCULOSKELETAL: No cyanosis, or edema. BACK: Nontender without obvious deformity. No CVA tenderness. A/P Problem List: (1) Constipation ICD Code: K59.00 Status: Acute (2) Hyponatremia ICD Code: E87.1 Status: Acute Assessment and Plan 51-year-old female with Constipation, recurrent: KUB with constipation and no bowel gas No improvement with enema. Started on Katalina-Colace and Reglan Consult GI and plan for colonoscopy today 12/17/16 End-stage renal disease on HD-chronic Consult nephrology for assistance in management of hemodialysis Monitor and replenish electrolytes as needed Hyponatremia: sodium 125, likely chronic due to ESRD and upon review previous labs. Monitor Pleural effusion: Chronic. Seen again on KUB. Patient previously refused home O2. Currently satting well on room air. Other chronic medical conditions include bipolar, HTN, HLD, COPD: Stable at this time and will continue home medications as indicated. DVT prophylaxis with heparin subcutaneous Shilo Greer MD Dec 17, 2016 13:43
[2016-12-17] MEDS: LURASIDONE 40 MG TAB PO SCH (17:32)
[2016-12-17] MEDS: ATORVASTATIN 20 MG TAB PO SCH (21:34)
[2016-12-17] MEDS: traZODone HCL 50 MG TAB PO SCH (21:35)
[2016-12-18] VITALS (8 sets, daily range): BP systolic 109–143; BP diastolic 45–66; PULSE 60–78; RESP 16–20; TEMP 96.9–99.7; O2SAT 94–97
[2016-12-18] MEDS: INSULIN ASPART SUPPLEMENTAL SCALE SQ SCH ×4 (06:14→21:00)
[2016-12-18] MEDS: DEXTROSE 50% IN WATER 50 ML VIAL(D50) IV PRN ×2 (06:19→11:22)
[2016-12-18] MEDS: HEPARIN SODIUM - SQ 10,000 UNITS/ML VIAL SQ SCH ×2 (08:00→20:00)
[2016-12-18] MEDS: DOCUSATE SODIUM 50 MG/SENNA 8.6 MG TAB PO SCH ×2 (09:00→21:00)
[2016-12-18] MEDS: SODIUM CHLORIDE 0.9% FLUSH 10 ML FLUSH IV FLUSH SCH ×2 (09:00→23:16)
[2016-12-18] MEDS: CLOPIDOGREL 75 MG TAB PO SCH (09:00)
[2016-12-18 10:16] LABS: AUTOMATED NEUTROPHIL # 1.8 TH/MM3 (1.8-7.7); BASOPHIL % 0.8 % (0.0-2.0); EOSINOPHIL % 0.7 % (0.0-4.0); HEMO FLAGS DIFF FINAL; LYMPH % 23.6 % (9.0-44.0); LYMPHOCYTE # 0.6 TH/MM3 (1.0-4.8); MEAN CELL VOLUME 86.6 FL (80.0-100.0); MEAN CORPUSCULAR HEMOGLOBIN 28.4 PG (27.0-34.0); MEAN CORPUSCULAR HGB CONC 32.8 % (32.0-36.0); MONO % 6.8 % (0.0-8.0); NEUT % 68.1 % (16.0-70.0); PLATELET COUNT 114 TH/MM3 (150-450); RED BLOOD COUNT 3.23 MIL/MM3 (4.00-5.30); RED CELL DISTRIBUTION WIDTH 17.1 % (11.6-17.2); WHITE BLOOD COUNT 2.6 TH/MM3 (4.0-11.0)
[2016-12-18 10:35] LABS: BICARBONATE 29.7 MEQ/L (21.0-32.0)
[2016-12-18 10:51] LABS: CALCIUM-PROTEIN CORRECTED 8.2 MG/DL (8.5-10.1)
[2016-12-18] MEDS: GELATIN 12 MM/7 MM FOAM TOP PRN (11:04)
[2016-12-18] MEDS: EPOETIN ALFA 10,000 UNITS/ML VIAL IV PRN (11:05)
--- NOTE | 2016-12-18 11:17 | HHI.NPPN ---
Subjective History of Present Illness 51-year-old female with a past medical history of end-stage renal disease on hemodialysis Wednesday, Wednesday and Wednesday. He has been following with Dr. Vinson for a history of chronic anemia, diabetes mellitus, hypertension, anxiety and bipolar disorder. He came in with a complaint of nausea, vomiting and abdominal distension with constipation. I was called to see the patient because of management of dialysis. She has been on hemodialysis Wednesday, Wednesday and Wednesday. Additional Remarks Patient is alert, seen during HD, mild abd. discomfort. Review of Systems General Constitutional: Fatigue Gastrointestinal Gastrointestinal: Abdominal Pain, Constipation Objective Data Data 12/17/16 12/18/16 19:00 07:00 Intake Total 2298 ml 480 ml Balance 2298 ml 480 ml Intake Oral 1920 ml 480 ml IV Total 378 ml # Voids 4 6 # Bowel Movements 4 Vital Signs Date Time Temp Pulse Resp B/P Pulse Ox O2 Delivery O2 Flow Rate FiO2 12/18/16 10:38 97 12/18/16 08:00 97.3 63 18 109/45 97 12/18/16 04:00 96.9 60 19 141/66 95 12/18/16 00:00 97.6 68 20 124/58 96 12/17/16 20:00 97.6 65 20 142/65 98 12/17/16 16:00 96.1 66 18 119/57 98 12/17/16 12:56 96.8 63 18 132/58 97 -: 12/18/16 0840 12/18/16 0840 Physical Exam General Appearance: No Acute Distress, Comfortable Eyes Eye Exam: Pupils Equal Throat Throat Exam: Oral Mucosa [place] & Moist Neck Neck Exam: Neck Supple Pulmonary Resp Exam: Breath Sounds Equal, No Distress, Decreased Bases, Diminished Breath Sounds Cardiology CV Exam: Regular, Normal Sinus Rhythm Gastrointestinal/Abdomen GI Exam: Soft, Non-Tender, Bowel Sounds Present, Distended Extremeties Extremities Exam: Trace Edema Neurologic Neuro Exam: Alert, Awake, Oriented Psychiatric Psych Exam: Appropriate Responses Assessment/Plan Assessment Summary: Anemia of CKD, End Stage Renal Disease Problem List: (1) Hyponatremia (2) COPD (chronic obstructive pulmonary disease) (3) Bipolar disorder (4) Anemia (5) ESRD (end stage renal disease) Plan Seen by GI, for colonoscopy today. BP is stable, HD now, and remove fluid as tolerated. K was low, to follow. Jessica Colin MD Dec 18, 2016 11:17
[2016-12-18] MEDS: METOCLOPRAMIDE HCL 10 MG TAB PO SCH ×3 (12:00→17:32)
[2016-12-18] MEDS: GABAPENTIN 100 MG CAP PO SCH ×2 (12:32→23:15)
[2016-12-18] MEDS: CINACALCET HYDROCHLORIDE 30 MG TAB PO SCH (12:33)
[2016-12-18] MEDS: ESCITALOPRAM OXALATE 10 MG TAB PO SCH (12:33)
[2016-12-18] MEDS: VITAMIN B CMPLX/VITC/FOLIC AC CAP PO SCH (12:33)
[2016-12-18] MEDS: LOSARTAN 50 MG TAB PO SCH (12:33)
[2016-12-18] MEDS: BENZTROPINE MESYLATE 2 MG TAB PO SCH ×2 (12:33→23:16)
[2016-12-18] MEDS ORDERED: NS 500 ML (EXCEL BAG) 500 ML BAG IV ONE (13:10)
[2016-12-18] MEDS ORDERED: PROPOFOL 200 MG/20 ML AMP IV ONE (13:10)
--- NOTE | 2016-12-18 13:12 | HHI.PR ---
Subjective Remarks Follow-up constipation/hyponatremia/end-stage renal disease requiring hemodialysis 12/17/16-patient seen and examined, taken GI prep for colonoscopy. Denies any shortness of breath. Vitals stable. Sodium 128 12/18/16-patient seen and examined she had hemodialysis today and now heading for colonoscopy. Sodium 134 today Objective Vitals Vital Signs Date Time Temp Pulse Resp B/P Pulse Ox O2 Delivery O2 Flow Rate FiO2 12/18/16 10:38 97 12/18/16 08:00 97.3 63 18 109/45 97 12/18/16 04:00 96.9 60 19 141/66 95 12/18/16 00:00 97.6 68 20 124/58 96 12/17/16 20:00 97.6 65 20 142/65 98 12/17/16 16:00 96.1 66 18 119/57 98 I/O 12/17/16 12/17/16 12/17/16 12/18/16 12/18/16 12/18/16 06:59 14:59 22:59 06:59 14:59 22:59 Intake Total 1200 ml 1578 ml 0 ml Output Total 3000 ml Balance 1200 ml 1578 ml 0 ml -3000 ml Intake Oral 1200 ml 1200 ml 0 ml IV Total 378 ml Hemodialysis 3000 ml # Voids 3 4 2 4 # Bowel Movements 4 Result Diagram: 12/18/16 0840 12/18/16 0840 Objective Remarks GENERAL: NAD SKIN: Warm and dry. HEAD: Normocephalic. EYES: No scleral icterus. No injection or drainage. NECK: Supple, trachea midline. No JVD or lymphadenopathy. CARDIOVASCULAR: Regular rate and rhythm with II/ ROBEL RESPIRATORY: Breath sounds equal bilaterally. No accessory muscle use. GASTROINTESTINAL: Abdomen soft, non-tender, nondistended. Positive bowel sounds MUSCULOSKELETAL: No cyanosis, or edema. BACK: Nontender without obvious deformity. No CVA tenderness. A/P Problem List: (1) Constipation ICD Code: K59.00 Status: Acute (2) Hyponatremia ICD Code: E87.1 Status: Acute (3) ESRD (end stage renal disease) on dialysis ICD Code: N18.6 Status: Acute Assessment and Plan 51-year-old female with Constipation, recurrent: KUB with constipation and no bowel gas No improvement with enema. Started on Katalina-Colace and Reglan Consult GI and plan for colonoscopy today 12/18/16 End-stage renal disease on HD-chronic Appreciate input from nephrology for assistance in management of hemodialysis. Patient had hemodialysis today Monitor and replenish electrolytes as needed Hyponatremia: sodium 134, likely chronic due to ESRD and upon review previous labs. Monitor Pleural effusion: Chronic. Seen again on KUB. Patient previously refused home O2. Currently satting well on room air. Other chronic medical conditions include bipolar, HTN, HLD, COPD: Stable at this time and will continue home medications as indicated. DVT prophylaxis with heparin subcutaneous Shilo Greer MD Dec 18, 2016 13:12
--- NOTE | 2016-12-18 13:41 | GIPROC ---
[facility] [address] [facility]. [facility], [address] COLONOSCOPY PROCEDURE REPORT EXAM DATE: 12/18/2016 PATIENT NAME: Deborah Cheema MR #: [id number] BIRTHDATE: 1965 ENDOSCOPIST: Shanell Garrett MD ORDER #: [id number] LEGAL INSTRUCTOR: Shira Li and Brandie Duarte STATUS: inpatient INDICATIONS: The patient is a 51 yr old female here for a colonoscopy due to constipation PROCEDURE PERFORMED: Colonoscopy, diagnostic MEDICATIONS: None and Per Anesthesia. PREP QUALITY: poor PREP TYPE:GoLytely ESTIMATED BLOOD LOSS: None CONSENT: The patient understands the risks and benefits of the procedure and understands that these risks include, but are not limited to: sedation, allergic reaction, infection, perforation and/or bleeding. Alternative means of evaluation and treatment include, among others: physical exam, x-rays, and/or surgical intervention. The patient elects to proceed with this endoscopic procedure. medical equipment was checked for proper function. Hand hygiene and appropriate measures for infection prevention was taken. After the risks, benefits and alternatives of the procedure were thoroughly explained, Informed consent was verified, confirmed and timeout was successfully executed by the treatment team. A digital exam was performed The Pentax [id number] endoscope was introduced through the anus and advanced to the cecum, which was identified by both the appendix and ileocecal valve. The instrument was then slowly withdrawn as the colon was fully examined. COLON FINDINGS: Moderate sized internal hemorrhoids were found. A significant amount of stool was present throughout the entire examined colon. Retroflexion was not performed due to a narrow rectal vault The scope was then completely withdrawn from the patient and the procedure terminated. PROCEDURE WITHDRAWAL TIME:8minutes ADVERSE EVENTS: There were no complications. IMPRESSIONS: 1. Moderate sized internal hemorrhoids 2. Significant amount of stool was present throughout the entire examined colon 3. Retroflexion was not performed due to a narrow rectal vault RECOMMENDATIONS: High fiber diet RECALL: Return 1 month Colonoscopy with better bowel prep Shanell Garrett MD eSigned: Shanell Garrett MD 12/18/2016 1:41 PM cc:
[2016-12-18] MEDS: LURASIDONE 40 MG TAB PO SCH (17:33)
[2016-12-18] MEDS: ATORVASTATIN 20 MG TAB PO SCH (23:16)
[2016-12-18] MEDS: traZODone HCL 50 MG TAB PO SCH (23:16)
[2016-12-19] VITALS: BP 129/60; PULSE 76; RESP 16; TEMP 96.8; O2SAT 97
[2016-12-19 04:00] VITALS: BP 121/56; PULSE 73; RESP 19; TEMP 98.1; O2SAT 94
[2016-12-19] MEDS: INSULIN ASPART SUPPLEMENTAL SCALE SQ SCH ×2 (05:20→11:00)
[2016-12-19] MEDS: CINACALCET HYDROCHLORIDE 30 MG TAB PO SCH (07:33)
[2016-12-19] MEDS: VITAMIN B CMPLX/VITC/FOLIC AC CAP PO SCH (07:33)
[2016-12-19] MEDS: GABAPENTIN 100 MG CAP PO SCH (07:33)
[2016-12-19] MEDS: CLOPIDOGREL 75 MG TAB PO SCH (07:33)
[2016-12-19] MEDS: ESCITALOPRAM OXALATE 10 MG TAB PO SCH (07:33)
[2016-12-19] MEDS: HEPARIN SODIUM - SQ 10,000 UNITS/ML VIAL SQ SCH (07:33)
[2016-12-19] MEDS: BENZTROPINE MESYLATE 2 MG TAB PO SCH (07:33)
[2016-12-19] MEDS: LOSARTAN 50 MG TAB PO SCH (07:34)
[2016-12-19] MEDS: DOCUSATE SODIUM 50 MG/SENNA 8.6 MG TAB PO SCH (07:34)
[2016-12-19] MEDS: METOCLOPRAMIDE HCL 10 MG TAB PO SCH ×2 (07:34→12:05)
[2016-12-19] MEDS: SODIUM CHLORIDE 0.9% FLUSH 10 ML FLUSH IV FLUSH SCH (07:34)
[2016-12-19 08:00] VITALS: BP 152/67; PULSE 79; RESP 18; TEMP 97.1; O2SAT 96
--- NOTE | 2016-12-19 10:47 | HHI.NPPN ---
Subjective History of Present Illness 51-year-old female with a past medical history of end-stage renal disease on hemodialysis Wednesday, Wednesday and Wednesday. He has been following with Dr. Vinson for a history of chronic anemia, diabetes mellitus, hypertension, anxiety and bipolar disorder. He came in with a complaint of nausea, vomiting and abdominal distension with constipation. I was called to see the patient because of management of dialysis. She has been on hemodialysis Wednesday, Wednesday and Wednesday. Additional Remarks Patient is alert, abd. pain is better, has BM today. Review of Systems General Constitutional: Fatigue Gastrointestinal Gastrointestinal: Abdominal Pain, Constipation Objective Data Data 12/18/16 12/19/16 19:00 07:00 Intake Total 840 ml 480 ml Output Total 3000 ml Balance -2160 ml 480 ml Intake Oral 740 ml 480 ml IV Total 100 ml Hemodialysis 3000 ml # Voids 3 2 # Bowel Movements 4 Vital Signs Date Time Temp Pulse Resp B/P Pulse Ox O2 Delivery O2 Flow Rate FiO2 12/19/16 08:00 97.1 79 18 152/67 96 12/19/16 04:00 98.1 73 19 121/56 94 12/19/16 00:00 96.8 76 16 129/60 97 12/18/16 20:00 99.7 77 16 133/62 96 12/18/16 16:19 98.0 78 18 143/59 94 12/18/16 14:15 68 18 147/62 100 12/18/16 14:00 64 18 155/63 99 12/18/16 13:45 98.7 64 18 163/67 92 12/18/16 13:10 97.3 63 18 109/45 97 12/18/16 12:25 97.6 76 18 116/54 95 -: 12/18/16 0840 12/18/16 0840 Physical Exam General Appearance: No Acute Distress, Comfortable Eyes Eye Exam: Pupils Equal Throat Throat Exam: Oral Mucosa [place] & Moist Neck Neck Exam: Neck Supple Pulmonary Resp Exam: Breath Sounds Equal, No Distress, Decreased Bases, Diminished Breath Sounds Cardiology CV Exam: Regular, Normal Sinus Rhythm Gastrointestinal/Abdomen GI Exam: Soft, Non-Tender, Bowel Sounds Present, Distended Extremeties Extremities Exam: Trace Edema Neurologic Neuro Exam: Alert, Awake, Oriented Psychiatric Psych Exam: Appropriate Responses Assessment/Plan Assessment Summary: Anemia of CKD, End Stage Renal Disease Problem List: (1) Hyponatremia (2) COPD (chronic obstructive pulmonary disease) (3) Bipolar disorder (4) Anemia (5) ESRD (end stage renal disease) Plan Seen by GI, colonoscopy done yesterday and results noted. BP is stable, HD done yesterday and 3 liters removed. Continue HD MWF. Jessica Colin MD Dec 19, 2016 10:47
[2016-12-19 12:00] VITALS: BP 161/68; PULSE 81; RESP 18; TEMP 98.6; O2SAT 95
--- NOTE | 2016-12-19 13:04 | HHI.PR ---
Subjective Remarks Follow-up constipation/hyponatremia/end-stage renal disease requiring hemodialysis 12/17/16-patient seen and examined, taken GI prep for colonoscopy. Denies any shortness of breath. Vitals stable. Sodium 128 12/18/16-patient seen and examined she had hemodialysis today and now heading for colonoscopy. Sodium 134 today 12/19/16-patient seen and examined, no acute event overnight. Stable. She had colonoscopy yesterday Objective Vitals Vital Signs Date Time Temp Pulse Resp B/P Pulse Ox O2 Delivery O2 Flow Rate FiO2 12/19/16 08:00 97.1 79 18 152/67 96 12/19/16 04:00 98.1 73 19 121/56 94 12/19/16 00:00 96.8 76 16 129/60 97 12/18/16 20:00 99.7 77 16 133/62 96 12/18/16 16:19 98.0 78 18 143/59 94 12/18/16 14:15 68 18 147/62 100 12/18/16 14:00 64 18 155/63 99 12/18/16 13:45 98.7 64 18 163/67 92 12/18/16 13:10 97.3 63 18 109/45 97 I/O 12/18/16 12/18/16 12/18/16 12/19/16 12/19/16 12/19/16 07:00 15:00 23:00 07:00 15:00 23:00 Intake Total 0 ml 100 ml 980 ml 240 ml Output Total 3000 ml Balance 0 ml -2900 ml 980 ml 240 ml Intake Oral 0 ml 980 ml 240 ml IV Total 100 ml Hemodialysis 3000 ml # Voids 4 4 1 # Bowel Movements 4 Result Diagram: 12/18/16 0840 12/18/16 0840 Imaging Last Impressions Abdomen X-Ray 12/15/16 [id number] Signed Impressions: Service Date/Time: Thursday, December 15, 2016 17:23 - CONCLUSION: 1. Probable right pleural effusion. 2. Constipation. No evidence of small bowel dilation. Frandy Arciniega MD Objective Remarks GENERAL: NAD SKIN: Warm and dry. HEAD: Normocephalic. EYES: No scleral icterus. No injection or drainage. NECK: Supple, trachea midline. No JVD or lymphadenopathy. CARDIOVASCULAR: Regular rate and rhythm with II/ ROBEL RESPIRATORY: Breath sounds equal bilaterally. No accessory muscle use. GASTROINTESTINAL: Abdomen soft, non-tender, nondistended. Positive bowel sounds MUSCULOSKELETAL: No cyanosis, or edema. BACK: Nontender without obvious deformity. No CVA tenderness. A/P Problem List: (1) Constipation ICD Code: K59.00 Status: Acute (2) Hyponatremia ICD Code: E87.1 Status: Acute (3) ESRD (end stage renal disease) on dialysis ICD Code: N18.6 Status: Acute Assessment and Plan 51-year-old female with Constipation, recurrent: KUB with constipation and no bowel gas No improvement with enema. Started on Katalina-Colace and Reglan Appreciate GI input and patient started post colonoscopy 12/18/16 with finding of Moderate sized internal hemorrhoids. Recommend increase fiber in diet End-stage renal disease on HD-chronic Appreciate input from nephrology for assistance in management of hemodialysis. Patient had hemodialysis today Monitor and replenish electrolytes as needed Hyponatremia: sodium 134, likely chronic due to ESRD and upon review previous labs. Monitor Pleural effusion: Chronic. Seen again on KUB. Patient previously refused home O2. Currently satting well on room air. Other chronic medical conditions include bipolar, HTN, HLD, COPD: Stable at this time and will continue home medications as indicated. DVT prophylaxis with heparin subcutaneous Shilo Greer MD Dec 19, 2016 13:04
[2016-12-19] MEDS ORDERED: FIBE625T PO (13:08)
--- NOTE | 2016-12-19 13:11 | HHI.DS ---
Discharge Summary Admission Date Dec 16, 2016 at 14:47 Discharge Date: Dec 19, 2016 Admitting Diagnosis severe hyponatremia/intractable vomiting/severe constipation (1) Constipation ICD Code: K59.00 (2) Hyponatremia ICD Code: E87.1 (3) ESRD (end stage renal disease) on dialysis ICD Code: N18.6 Procedures Colonoscopy 12/18/16 Brief History - From Admission Written by Sherrill Mondragon, acting as scribe for Dr. Taylor on 12/15/16 at 23: 09. The patient is a 51-year-old female with a past medical history of end-stage renal disease on dialysis who is presenting to the hospital with abdominal pain , constipation x5 days, and nausea and vomiting. Patient is a poor historian and unable to provide specific details per her report to ER physician patient has been constipated 5 days patient reports been, "a long time," but is unable to give specific amount of days. Patient complains of generalized abdominal pain which she describes as bloating/cramping pain 5 out of 10. Patient also reports she is unable to tolerate by mouth intake reports nausea and vomiting times one earlier today with discharged to eat. Patient does not believe she is passing gas at this time reports she passed gas yesterday the day before but not today. Patient reports her abdomen is getting increasingly larger and she's becoming increasingly more uncomfortable. Patient was recently admitted 12/02/2016 for ileus and hyponatremia. CBC/BMP: 12/18/16 0840 12/18/16 0840 Significant Findings Laboratory Tests Test 12/18/16 08:40 White Blood Count 2.6 TH/MM3 (4.0-11.0) Red Blood Count 3.23 MIL/MM3 (4.00-5.30) Hemoglobin 9.2 GM/DL (11.6-15.3) Hematocrit 28.0 % (35.0-46.0) Platelet Count 114 TH/MM3 (150-450) Lymphocytes # (Auto) 0.6 TH/MM3 (1.0-4.8) Sodium Level 134 MEQ/L (136-145) Potassium Level 3.0 MEQ/L (3.5-5.1) Chloride Level 93 MEQ/L (98-107) Creatinine 3.14 MG/DL (0.50-1.00) Estimat Glomerular Filtration 16 ML/MIN (>89) Rate Calcium Level 7.3 MG/DL (8.5-10.1) Protein Corrected Calcium 8.2 MG/DL (8.5-10.1) Total Protein 5.4 GM/DL (6.4-8.2) Imaging Last Impressions Abdomen X-Ray 12/15/16 [id number] Signed Impressions: Service Date/Time: Thursday, December 15, 2016 17:23 - CONCLUSION: 1. Probable right pleural effusion. 2. Constipation. No evidence of small bowel dilation. Frandy Arciniega MD PE at Discharge GENERAL: NAD SKIN: Warm and dry. HEAD: Normocephalic. EYES: No scleral icterus. No injection or drainage. NECK: Supple, trachea midline. No JVD or lymphadenopathy. CARDIOVASCULAR: Regular rate and rhythm with II/ ROBEL RESPIRATORY: Breath sounds equal bilaterally. No accessory muscle use. GASTROINTESTINAL: Abdomen soft, non-tender, nondistended. Positive bowel sounds MUSCULOSKELETAL: No cyanosis, or edema. BACK: Nontender without obvious deformity. No CVA tenderness. Hospital Course Patient admitted secondary to episodes of recurrent constipation for which gastroenterology was consulted and she underwent a colonoscopy 12/18/16 with finding of moderate size internal hemorrhoids. While in hospital, she was treated with Solu softener resulting in resolution of constipation. Nephrology was consulted and patient's received in house hemodialysis. Electrolyte abnormalities including hyponatremia resolved with IV fluid hydration. She was continued on a treatment for other chronic medical conditions. DVT and GI prophylaxis were provided. Prior to discharge, vitals remained stable and patient's condition improved. Pt Condition on Discharge: Stable Discharge Disposition: Discharge to SNF Discharge Time: > 30 minutes Discharge Instructions DIET: Follow Instructions for: Heart Healthy Diet Activities you can perform: Regular-No Restrictions Follow up Referrals: Gastroenterology Nephrology PCP Follow-up - 2-3 Days New Medications: Calcium Polycarbophil (Fibercon) 625 Mg Tab 1250 MG PO Q12HR PRN CONSTIPATION #60 Ref 0 TAB Continued Medications: Atorvastatin (Atorvastatin) 20 Mg Tab 20 MG PO HS Cholesterol Management #30 Ref 0 TAB B-Complex W/ C & Folic Acid (Nephrocaps) 1 Cap 1 CAP PO DAILY If on dialysis, take after treatment. Nutritional Supplement #30 Ref 0 CAP Benztropine (Benztropine) 2 Mg Tab 2 MG PO Q12HR side effects Days 10 Ref 1 TAB Cinacalcet (Sensipar) 60 Mg Tab 60 MG PO DAILY With Dinner #30 Ref 3 TAB Clopidogrel (Plavix) 75 Mg Tab 75 MG PO DAILY Blood Clot Prevention #30 Ref 6 TAB Escitalopram (Lexapro) 10 Mg Tab 10 MG PO DAILY #30 Ref 0 TAB Ferric Citrate (Auryxia) 210 Mg Tab 210 MG PO 2-3 TIMES A DAY Take with meals 2-3 times a day Gabapentin (Neurontin) 100 Mg Cap 200 MG PO BID #60 Ref 0 CAP Losartan (Losartan) 50 Mg Tab 50 MG PO DAILY Blood Pressure Management #30 Ref 6 TAB Lurasidone (Latuda) 40 Mg Tab 40 MG PO WITH DINNER #60 Ref 1 TAB Metoclopramide (Reglan) 5 Mg Tab 5 MG PO TIDAC Ref 0 TAB Polyethylene Glycol 3350 Powder (Polyethylene Glycol 3350 Powder) 17 Gm Pow 17 GM PO DAILY Constipation Days 14 BOTTLE Sennosides-Docusate Sodium (Katalina-Colace) 8.6-50 Mg Tab 1 TAB PO BID Constipation #60 Ref 0 TAB Trazodone (Trazodone) 50 Mg Tab 75 MG PO HS #60 Ref 1 TAB Discontinued Medications: Ferric Citrate (Auryxia) 210 Mg Tab TAB PO TID Hydrocodone-Acetaminophen (Hydrocodone-Acetaminophen) 7.5-325 mg Tab 1 TAB PO Q4H PRN PAIN SCALE 6 TO 10 #30 Ref 0 TAB Levofloxacin (Levofloxacin) 500 Mg Tablet 500 MG PO Q48H Infection #3 TAB Shilo Greer MD Dec 19, 2016 13:11
--- NOTE | 2016-12-19 14:37 | HHI.GIFU ---
Subjective Remarks Feeling good denies any pain had bowel movement Objective Vitals I&O Vital Signs Date Time Temp Pulse Resp B/P Pulse Ox O2 Delivery O2 Flow Rate FiO2 12/19/16 12:00 98.6 81 18 161/68 95 12/19/16 08:00 97.1 79 18 152/67 96 12/19/16 04:00 98.1 73 19 121/56 94 12/19/16 00:00 96.8 76 16 129/60 97 12/18/16 20:00 99.7 77 16 133/62 96 12/18/16 16:19 98.0 78 18 143/59 94 I/O 12/18/16 12/18/16 12/18/16 12/19/16 12/19/16 12/19/16 07:00 15:00 23:00 07:00 15:00 23:00 Intake Total 0 ml 100 ml 980 ml 240 ml 480 ml Output Total 3000 ml Balance 0 ml -2900 ml 980 ml 240 ml 480 ml Intake Oral 0 ml 980 ml 240 ml 480 ml IV Total 100 ml Hemodialysis 3000 ml # Voids 4 4 1 4 # Bowel Movements 4 1 Laboratory Laboratory Tests Test 12/18/16 08:40 White Blood Count 2.6 TH/MM3 Red Blood Count 3.23 MIL/MM3 Hemoglobin 9.2 GM/DL Hematocrit 28.0 % Mean Corpuscular Volume 86.6 FL Mean Corpuscular Hemoglobin 28.4 PG Mean Corpuscular Hemoglobin 32.8 % Concent Red Cell Distribution Width 17.1 % Platelet Count 114 TH/MM3 Mean Platelet Volume 8.4 FL Neutrophils (%) (Auto) 68.1 % Lymphocytes (%) (Auto) 23.6 % Monocytes (%) (Auto) 6.8 % Eosinophils (%) (Auto) 0.7 % Basophils (%) (Auto) 0.8 % Neutrophils # (Auto) 1.8 TH/MM3 Lymphocytes # (Auto) 0.6 TH/MM3 Monocytes # (Auto) 0.2 TH/MM3 Eosinophils # (Auto) 0.0 TH/MM3 Basophils # (Auto) 0.0 TH/MM3 CBC Comment DIFF FINAL Differential Comment Sodium Level 134 MEQ/L Potassium Level 3.0 MEQ/L Chloride Level 93 MEQ/L Carbon Dioxide Level 29.7 MEQ/L Anion Gap 11 MEQ/L Blood Urea Nitrogen 12 MG/DL Creatinine 3.14 MG/DL Estimat Glomerular Filtration 16 ML/MIN Rate Random Glucose 75 MG/DL Calcium Level 7.3 MG/DL Protein Corrected Calcium 8.2 MG/DL Total Protein 5.4 GM/DL Physical Exam NECK: Neck is supple. CHEST: Chest is clear to auscultation and percussion. CARDIAC: Regular rate and rhythm with no murmur gallop or rubs. ABDOMEN: Soft, nondistended, nontender; no hepatosplenomegaly; bowel sounds are present in all four quadrants. EXTREMITIES: No clubbing, cyanosis, or edema. SKIN: Normal; no rash; no jaundice. 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 Assessment and Plan Plan ASSESSMENT - constipation - pt cannot recall last BM. Xray --> constipation, no small bowel dilatation. Colonoscopy 12-04-16--> poor prep but no large or obstructive lesions. Repeat colonoscopy was recommended. Has been here recently for same complaint and had positive results with bowel prep. Will do 2 rounds GoLytely and then repeat colonoscopy Wednesday. PLAN -Repeat colonoscopy as outpatient but if the patient is here Wednesday or Wednesday we can consider repeat while inpatient - further recommendations to follow Continue with current supportive care Christian Jasso MD Dec 19, 2016 14:37
[2016-12-19 16:06] VITALS: BP 137/63; PULSE 80; RESP 20; TEMP 98.8; O2SAT 93
== END 2016-12-19 16:38 | disposition home or self-care (01) | DRG 640 ==
LOC: NEPC 16:27 → NEDA 19:00 → INTOOBSV 19:00 → OBSVTOIN 19:00 → NEPGCP 21:55 → OBSVTOIN 12-16 14:47 → HOCA 12-16 17:41 → HOCB 12-16 18:17 → HOCA 12-16 18:18
PROVIDERS: ADMIT Hospitalist; ATTEND Hospitalist
PROC: 5A1D60Z (ICD-10-PCS; principal; 2016-12-16)
PROC: 0DJD8ZZ Inspection of Lower Intestinal Tract, Via Natural or Artificial Opening Endoscopic (ICD-10-PCS; 2016-12-18)
DX: E87.1 Hypo-osmolality and hyponatremia (principal); N18.6 End stage renal disease; J90 Pleural effusion, not elsewhere classified; E11.22 Type 2 diabetes mellitus with diabetic chronic kidney disease; I12.0 Hypertensive chronic kidney disease with stage 5 chronic kidney disease or end stage renal disease; J44.9 Chronic obstructive pulmonary disease, unspecified; E78.5 Hyperlipidemia, unspecified; F31.9 Bipolar disorder, unspecified; F17.210 Nicotine dependence, cigarettes, uncomplicated; K59.00 Constipation, unspecified; D63.1 Anemia in chronic kidney disease; F41.9 Anxiety disorder, unspecified; Z99.2 Dependence on renal dialysis; Z79.4 Long term (current) use of insulin; K64.8 Other hemorrhoids
CPT/HCPCS: 36591; 74020; 80048; 80053; 82948; 83036; 83690; 84155; 85025; 90935; 96374; G8996-GN; G8997-GN; G8998-GN; J1644; J1815; J2405; J7040; Q4081

== ENCOUNTER 2017-03-26 17:23 | Inpatient (IN) | payer MEDICARE, OTHER ==
[~2017-03-26] VITALS: Ht 142.2 cm; Wt 56.5 kg
[~2017-03-26 17:23] MED LIST changes: +FIBE625T PO; -HYDR-3580 PO; -LEVO500T8 PO
[2017-03-26 17:45] VITALS: BP 180/77; PULSE 63; RESP 18; TEMP 99.1; O2SAT 98
[2017-03-26 19:57] LABS: AUTOMATED NEUTROPHIL # 3.4 TH/MM3 (1.8-7.7); BASOPHIL % 0.6 % (0.0-2.0); EOSINOPHIL % 0.9 % (0.0-4.0); HEMO FLAGS DIFF FINAL; LYMPH % 16.7 % (9.0-44.0); LYMPHOCYTE # 0.8 TH/MM3 (1.0-4.8); MEAN CELL VOLUME 88.2 FL (80.0-100.0); MEAN CORPUSCULAR HEMOGLOBIN 28.5 PG (27.0-34.0); MEAN CORPUSCULAR HGB CONC 32.3 % (32.0-36.0); NEUT % 71.8 % (16.0-70.0); PLATELET COUNT 127 TH/MM3 (150-450); RED BLOOD COUNT 3.74 MIL/MM3 (4.00-5.30); RED CELL DISTRIBUTION WIDTH 16.6 % (11.6-17.2); WHITE BLOOD COUNT 4.7 TH/MM3 (4.0-11.0)
[2017-03-26 20:19] LABS: ANION GAP 10 MEQ/L (5-15); AST (GOT) 26 U/L (15-37); BICARBONATE 28.2 MEQ/L (21.0-32.0); BLOOD UREA NITROGEN 12 MG/DL (7-18); CHLORIDE 89 MEQ/L (98-107); GLOMERULAR FILTRATION RATE 20 ML/MIN (>89); POTASSIUM 3.3 MEQ/L (3.5-5.1); SODIUM (NA) 127 MEQ/L (136-145)
[2017-03-26 20:20] LABS: ALT (GPT) 24 U/L (10-53)
[2017-03-26 20:22] LABS: ALKALINE PHOSPHATASE 170 U/L (45-117); TOTAL BILIRUBIN ADULT 0.6 MG/DL (0.2-1.0)
[2017-03-26 20:23] LABS: ALCOHOL LESS THAN 3 MG/DL (0-5)
--- NOTE | 2017-03-26 20:46 | PD ---
HPI Chief Complaint: Suicide Ideation/Attempt Time Seen by Provider: 20:08 Travel History International Travel<30 days: No Contact w/Intl Traveler<30days: No Traveled to known affect area: No History of Present Illness HPI 51 year-old female on dialysis presents to the emergency room under Delatorre act for evaluation of suicidal ideation. Patient states she has had increasing suicidal thoughts over the past several months. She has no specific reason for being suicidal or any plan. She denies any medical complaints at this time. Denies drug or alcohol use. She last had dialysis this morning. Patient makes urine several times per day. Patient has history of bipolar disorder but she has been taking her medications. States they did not work. PFSH Past Medical History Hx Anticoagulant Therapy: Yes (PLAVIX) Asthma: No Blood Disorders: No Bipolar Disorder: Yes (A/V HALLUCINATION) Anxiety: Yes Depression: Yes Heart Rhythm Problems: No Cancer: No Cardiovascular Problems: Yes High Cholesterol: No Chest Pain: No Congestive Heart Failure: No COPD: Yes Diabetes: Yes Dialysis: Yes (WEDNESDAYS AND FRIDAYS) Diminished Hearing: No Endocrine: Yes Gastrointestinal Disorders: No Genitourinary: Yes Immune Disorder: No Implanted Vascular Access Dvce: Yes Kidney Stones: No Musculoskeletal: No Neurologic: No Psychiatric: Yes Reproductive: No Respiratory: Yes (EMPHYSEMA AND COPD) Renal Failure: Yes (IS ON DIALYSIS) Schizophrenia: Yes Sleep Apnea: No Thyroid Disease: No Menopausal: Yes : 4 Para: 3 : 1 Past Surgical History Body Medical Devices: A/V SHUNT- LEFT CHEST Section: Yes Gynecologic Surgery: Yes ( X 3 ) Other Surgery: Yes (cyst ovary drained/ AV- SHUNT- LEFT CHEST-) Social History Alcohol Use: No Tobacco Use: Yes (1/2ppd) Substance Use: Yes (Past hx of crack and marijuana abuse) Allergies-Medications (Allergen,Severity, Reaction): Coded Allergies: No Known Allergies (Unverified , 12/01/16) Reported Meds & Prescriptions Reported Meds & Active Scripts Active Fibercon (Calcium Polycarbophil) 625 Mg Tab 1,250 Mg PO Q12HR PRN Polyethylene Glycol 3350 Powder (Polyethylene Glycol) 17 Gm Pow 17 Gm PO DAILY 14 Days Katalina-Colace (Sennosides-Docusate Sodium) 8.6-50 Mg Tab 1 Tab PO BID Oxygen tank (Oxygen) 1 Ea Tank 2 Liter JOSIAH.CANULA CONTINUOUS Oxygen Concentrator Portable Gaseous 2 L/min via Nasal Cannula Continuous For 99 months Trazodone (Trazodone HCl) 50 Mg Tab 75 Mg PO HS Reported Allopurinol 300 Mg Tab 300 Mg PO DAILY Albuterol Neb (Albuterol Sulfate) 2.5 Mg/0.5 Ml Neb 2.5 Mg NEB Q6HR NEB Note: The Albuterol Sulfate Inhalation Solution is concentrated and must be diluted. Read complete instructions carefully before using. Hydroxyzine HCl 10 Mg Tab 10 Mg PO BID Ativan (Lorazepam) 1 Mg Tab 1 Mg PO DAILY PRN Latuda (Lurasidone) 20 Mg Tab 20 Mg PO DAILY Auryxia (Ferric Citrate) 210 Mg Tab 210 Mg PO 2-3 TIMES A DAY Take with meals 2-3 times a day Atorvastatin (Atorvastatin Calcium) 20 Mg Tab 20 Mg PO HS Reglan (Metoclopramide HCl) 5 Mg Tab 5 Mg PO TIDAC Lexapro (Escitalopram Oxalate) 10 Mg Tab 10 Mg PO DAILY Review of Systems Except as stated in HPI: all other systems reviewed are Neg Physical Exam Narrative GENERAL: Well-nourished, well-developed female in no acute distress. Afebrile. Ambulatory. Resting comfortable in bed. Eating dinner. SKIN: Focused skin assessment warm/dry. HEAD: Normocephalic. EYES: No scleral icterus. No injection or drainage. NECK: Supple, trachea midline. No JVD or lymphadenopathy. CARDIOVASCULAR: Regular rate and rhythm without murmurs, gallops, or rubs. RESPIRATORY: Breath sounds equal bilaterally. No accessory muscle use. GASTROINTESTINAL: Abdomen soft, non-tender. Mildly distended. Data Data Last Documented VS Vital Signs Date Time Temp Pulse Resp B/P (MAP) Pulse Ox O2 Delivery O2 Flow Rate FiO2 03/27/17 14:13 151/70 (97) 97 Room Air 03/27/17 06:05 57 17 03/26/17 17:45 99.1 Orders Orders Complete Blood Count With Diff (03/26/17 17:44) Comprehensive Metabolic Panel (03/26/17 17:44) Psych Screen (03/26/17 17:44) Diet Regular Basic (03/26/17 Dinner) Drug Screen, Random Urine (03/26/17 17:44) Alcohol (Ethanol) (03/26/17 17:44) Trazodone (Desyrel) (03/27/17 01:15) Diet 1800 Ada Cons Carb (03/27/17 Breakfast) Diet Regular Basic (03/27/17 Breakfast) Diet 1800 Ada Cons Carb (03/27/17 Lunch) Allopurinol (Zyloprim) (03/27/17 15:00) Atorvastatin (Lipitor) (03/27/17 21:00) Escitalopram (Lexapro) (03/27/17 15:00) Lorazepam (Ativan) (03/27/17 15:00) Lurasidone (Latuda) (03/27/17 15:00) Trazodone (Desyrel) (03/27/17 21:00) Patient Own Medication (03/27/17 18:00) Metoclopramide (Reglan) (03/27/17 17:00) Admit To Inpatient Psych (03/27/17 ) Vital Signs (Adult) MOOK.Q12H.E (03/27/17 14:56) Activity Oob Ad Tabatha (03/27/17 14:56) Lorazepam (Ativan) (03/27/17 15:00) Lorazepam Inj (Ativan Inj) (03/27/17 15:00) Lorazepam (Ativan) (03/27/17 15:00) Lorazepam Inj (Ativan Inj) (03/27/17 15:00) Acetaminophen (Tylenol) (03/27/17 15:00) Magnesium Hydroxide Liq (Milk Of Magnesi (03/27/17 15:00) Al-Mag Hy-Si 40-40-4 Mg/Ml Liq (Mag-Al P (03/27/17 15:00) Nicotine 21 Mg Patch.24 Hr (Habitrol 21 (03/27/17 15:00) Basic Metabolic Panel (Bmp) (03/28/17 06:00) Lipid Profile (03/28/17 06:00) Hemoglobin (Hgb) A1c (03/28/17 06:00) Consult Hospitalist (03/27/17 ) Labs Laboratory Tests Test 03/26/17 19:29 03/26/17 21:00 White Blood Count 4.7 TH/MM3 Red Blood Count 3.74 MIL/MM3 Hemoglobin 10.7 GM/DL Hematocrit 33.0 % Mean Corpuscular Volume 88.2 FL Mean Corpuscular Hemoglobin 28.5 PG Mean Corpuscular Hemoglobin Concent 32.3 % Red Cell Distribution Width 16.6 % Platelet Count 127 TH/MM3 Mean Platelet Volume 8.0 FL Neutrophils (%) (Auto) 71.8 % Lymphocytes (%) (Auto) 16.7 % Monocytes (%) (Auto) 10.0 % Eosinophils (%) (Auto) 0.9 % Basophils (%) (Auto) 0.6 % Neutrophils # (Auto) 3.4 TH/MM3 Lymphocytes # (Auto) 0.8 TH/MM3 Monocytes # (Auto) 0.5 TH/MM3 Eosinophils # (Auto) 0.0 TH/MM3 Basophils # (Auto) 0.0 TH/MM3 CBC Comment DIFF FINAL Differential Comment Blood Urea Nitrogen 12 MG/DL Creatinine 2.51 MG/DL Random Glucose 151 MG/DL Total Protein 7.0 GM/DL Albumin 3.2 GM/DL Calcium Level 8.2 MG/DL Alkaline Phosphatase 170 U/L Aspartate Amino Transf (AST/SGOT) 26 U/L Alanine Aminotransferase (ALT/SGPT) 24 U/L Total Bilirubin 0.6 MG/DL Sodium Level 127 MEQ/L Potassium Level 3.3 MEQ/L Chloride Level 89 MEQ/L Carbon Dioxide Level 28.2 MEQ/L Anion Gap 10 MEQ/L Estimat Glomerular Filtration Rate 20 ML/MIN Ethyl Alcohol Level LESS THAN 3 MG/DL Urine Opiates Screen NEG Urine Barbiturates Screen NEG Urine Amphetamines Screen NEG Urine Benzodiazepines Screen NEG Urine Cocaine Screen NEG Urine Cannabinoids Screen NEG MDM Medical Decision Making Medical Screen Exam Complete: Yes Emergency Medical Condition: Yes Medical Record Reviewed: Yes Differential Diagnosis Bipolar disorder, mood disorder, suicidal ideation, malingering Narrative Course 51-year-old female presents to the emergency room a Delatorre act for evaluation of suicidal ideation. Patient has no specific plan. Denies any medical complaints at this time. She had dialysis earlier today. Still makes urine. Protocol labs ordered and pending. Vital signs stable. CBC is unremarkable. CMP some hyponatremia and elevated creatinine which is chronic for patient given her ESRD. Patient is medically cleared for psychiatric evaluation at this time. Diagnosis Primary Impression: Medical clearance for psychiatric admission Condition: Stable Rachelle Nichole Mar 26, 2017 20:46
[2017-03-26 23:01] VITALS: BP 146/63; PULSE 60; RESP 18; O2SAT 97
[2017-03-27] MEDS ORDERED: traZODone HCL 50 MG TAB PO ONE (01:15)
[2017-03-27] MEDS ORDERED: ALLO300T2 PO (02:41)
[2017-03-27] MEDS ORDERED: ALBU.5I NEB (02:41)
[2017-03-27] MEDS ORDERED: LORA-474 PO (02:41)
[2017-03-27] MEDS ORDERED: LURA20TA PO (02:41)
[2017-03-27] MEDS ORDERED: HYDR-755 PO (02:41)
[2017-03-27 06:05] VITALS: BP 158/63; PULSE 57; RESP 17; O2SAT 96
[2017-03-27 14:13] VITALS: BP 151/70; O2SAT 97
[2017-03-27] MEDS ORDERED: LORazepam 0.5 MG TAB PO PRN (15:00)
[2017-03-27] MEDS ORDERED: MAGNESIUM HYDROXIDE SUSP 30 ML CUP PO PRN (15:00)
[2017-03-27] MEDS ORDERED: ALLOPURINOL 300 MG TAB PO SCH (15:00)
[2017-03-27] MEDS ORDERED: LORazepam 2 MG/ML VIAL IM PRN ×2 (15:00)
[2017-03-27] MEDS ORDERED: ALUMINUM/MAGNESIUM/SIMETH 30 ML CUP PO PRN (15:00)
[2017-03-27] MEDS ORDERED: LORazepam 1 MG TAB PO PRN ×2 (15:00)
--- NOTE | 2017-03-27 15:05 | HHI.HP ---
Provisional Diagnosis Admission Date Garland I. Bipolar disorder, depressive episode Garland II. Deferred Garland III. Chronic kidney disease, on hemodialysis Certification of Person's Competence To Provide Express and Informed Consent I have personally examined Deborah Cheema , a person being served at [facility] on, Mar 27, 2017 14:58. Express and informed consent means consent voluntarily given in writing, by a competent person, after sufficient explanation and disclosure of the subject matter involved to enable the person to make a knowing and willful decision without any element of force, fraud, deceit, duress, or other form of constraint or coercion. This person is 18 years of age or older, is not now known to be incompetent to consent to treatment with a guardian advocate, and does not have a health care surrogate or proxy currently making medical treatment decisions. I have found this person to be one of the following: [] Competent to provide express and informed consent, as defined above, for voluntary admission to this facility and is competent to provide express and informed consent for treatment. He/she has the consistent capacity to make well reasoned, willful, and knowing decisions concerning his or her medical or mental health treatment. The person fully and consistently understands the purpose of the admission for examination/placement and is fully capable of personally exercising all rights assured [place] [] Incompetent to provide express and informed consent to voluntary admission, and this is incompetent to provide express and informed consent to treatment. The person must be transferred to involuntary status and a petition for a guardian advocate filed with the Circuit Court. [ x] Refusing to provide express and informed consent to voluntary admission but is competent to provide express and informed consent for treatment. The person must be discharged or transferred to involuntary status. Form shall be completed within 24 hours of a person's arrival at the receiving facility and filed in the clinical record of each person: 1. Admitted on a voluntary basis 2. Permitted to provide express and informed consent to his/her own treatment 3. Allowed to transfer from involuntary to voluntary status 4. Prior to permitting a person to consent to his or her own treatment after having been previously found incompetent to consent to treatment. History of Present Illness Capacity: Has Capacity HPI The patient is a 51 year-old woman, domiciled with her , with psychiatric history bipolar disorder, multiple psychiatric hospitalizations, last hospitalization was here at [facility] in 2016, she is on Latuda 20 mg, trazodone 50 mg, Lexapro 10 mg, previous suicidal attempts, medical history of chronic kidney disease on dialysis presents to the emergency room under Delatorre act for evaluation of suicidal ideation. Patient states she has had increasing suicidal thoughts over the past several months. She has no specific reason for being suicidal or any plan. She denies any medical complaints at this time. Denies drug or alcohol use. She last had dialysis this morning. Patient makes urine several times per day. Patient has history of bipolar disorder but she has been taking her medications. States they did not work. Past Psych History Violence risk - self (6 mos) Elevated Substance Abuse History Drugs/Alcohol past 12 months Patient denies use of alcohol and illicit drugs. Past Family Social History Coded Allergies: No Known Allergies (Unverified , 12/01/16) Active Scripts Calcium Polycarbophil (Fibercon) 625 Mg Tab, 1250 MG PO Q12HR Y for CONSTIPATION , #60 TAB 0 Refills Prov:Shilo Greer MD 12/19/16 Polyethylene Glycol 3350 Powder (Polyethylene Glycol 3350 Powder) 17 Gm Pow, 17 GM PO DAILY for Constipation for 14 Days, BOTTLE Prov:Jayson Salazar 12/07/16 Sennosides-Docusate Sodium (Katalina-Colace) 8.6-50 Mg Tab, 1 TAB PO BID for Constipation, #60 TAB 0 Refills Prov:Jayson Salazar 12/06/16 Oxygen tank (Oxygen tank) 1 Ea Tank, 2 LITER JOSIAH.CANULA CONTINUOUS for HYPOXEMIA PREVENTION, #2 CYLINDER Oxygen Concentrator Portable Gaseous 2 L/min via Nasal Cannula Continuous For 99 months Prov:Jayson Salazar 12/06/16 Trazodone (Trazodone) 50 Mg Tab, 75 MG PO HS, #60 TAB 1 Refill Prov:Jones Navarro MD, R3 11/04/16 Reported Medications Allopurinol (Allopurinol) 300 Mg Tab, 300 MG PO DAILY for Gout, #30 TAB 0 Refills 03/27/17 Albuterol Neb (Albuterol Neb) 2.5 Mg/0.5 Ml Neb, 2.5 MG NEB Q6HR NEB, BOX Note: The Albuterol Sulfate Inhalation Solution is concentrated and must be diluted. Read complete instructions carefully before using. 03/27/17 Hydroxyzine HCl (Hydroxyzine HCl) 10 Mg Tab, 10 MG PO BID, TAB 0 Refills 03/27/17 Lorazepam (Ativan) 1 Mg Tab, 1 MG PO DAILY Y for ANXIETY AND/OR AGITATION, TAB 0 Refills 03/27/17 Lurasidone (Latuda) 20 Mg Tab, 20 MG PO DAILY, #30 TAB 0 Refills 03/27/17 Ferric Citrate (Auryxia) 210 Mg Tab, 210 MG PO 2-3 TIMES A DAY Take with meals 2-3 times a day 10/05/16 Atorvastatin (Atorvastatin) 20 Mg Tab, 20 MG PO HS for Cholesterol Management, # 30 TAB 0 Refills 10/05/16 Metoclopramide (Reglan) 5 Mg Tab, 5 MG PO TIDAC, TAB 0 Refills 06/10/16 Escitalopram (Lexapro) 10 Mg Tab, 10 MG PO DAILY, #30 TAB 0 Refills 06/10/16 Discontinued Reported Medications Gabapentin (Neurontin) 100 Mg Cap, 200 MG PO BID, #60 CAP 0 Refills 10/05/16 B-Complex W/ C & Folic Acid (Nephrocaps) 1 Cap, 1 CAP PO DAILY for Nutritional Supplement, #30 CAP 0 Refills If on dialysis, take after treatment. 06/10/16 Discontinued Scripts Cinacalcet (Sensipar) 60 Mg Tab, 60 MG PO DAILY, #30 TAB 3 Refills With Dinner Prov:Ashley Wilhelm MD 11/10/16 Clopidogrel (Plavix) 75 Mg Tab, 75 MG PO DAILY for Blood Clot Prevention, #30 TAB 6 Refills Prov:Ashley Wilhelm MD 11/10/16 Losartan (Losartan) 50 Mg Tab, 50 MG PO DAILY for Blood Pressure Management, # 30 TAB 6 Refills Prov:Ashley Wilhelm MD 11/10/16 Lurasidone (Latuda) 40 Mg Tab, 40 MG PO WITH DINNER, #60 TAB 1 Refill Prov:Jones Navarro MD, R3 11/04/16 Benztropine (Benztropine) 2 Mg Tab, 2 MG PO Q12HR for side effects for 10 Days, TAB 1 Refill Prov:Cristobal Thomas MD 06/17/16 Current Medications Medications (Trade) Dose Ordered Sig/Lora Route Start Time Stop Time Status Last Admin (Zyloprim) 300 mg DAILY PO 03/27/17 15:00 UNV (Lipitor) 20 mg HS PO 03/27/17 21:00 UNV (Lexapro) 10 mg DAILY PO 03/27/17 15:00 UNV (Ativan) 1 mg DAILY PRN PO 03/27/17 15:00 UNV (Latuda) 20 mg DAILY PO 03/27/17 15:00 UNV (Desyrel) 75 mg HS PO 03/27/17 21:00 UNV Non-Formulary Medication 210 mg 2-3 TIMES A DAY PO 03/27/17 15:00 UNV Non-Formulary Medication 5 mg TIDAC PO 03/27/17 17:00 UNV Family History Patient denies family psychiatric history Social History Patient was born and raised in [place], she lives in [place] with her , unemployed, on SSI, her highest level of education is high school Patient's Strengths (min. 2) Family support Physical Exam Vital Signs Vital Signs Date Time Temp Pulse Resp B/P (MAP) Pulse Ox O2 Delivery O2 Flow Rate FiO2 03/27/17 14:13 151/70 (97) 97 Room Air 03/27/17 06:05 57 17 03/26/17 17:45 99.1 Lab Results Test 03/26/17 19:29 03/26/17 21:00 White Blood Count 4.7 TH/MM3 Red Blood Count 3.74 MIL/MM3 Hemoglobin 10.7 GM/DL Hematocrit 33.0 % Mean Corpuscular Volume 88.2 FL Mean Corpuscular Hemoglobin 28.5 PG Mean Corpuscular Hemoglobin Concent 32.3 % Red Cell Distribution Width 16.6 % Platelet Count 127 TH/MM3 Mean Platelet Volume 8.0 FL Neutrophils (%) (Auto) 71.8 % Lymphocytes (%) (Auto) 16.7 % Monocytes (%) (Auto) 10.0 % Eosinophils (%) (Auto) 0.9 % Basophils (%) (Auto) 0.6 % Neutrophils # (Auto) 3.4 TH/MM3 Lymphocytes # (Auto) 0.8 TH/MM3 Monocytes # (Auto) 0.5 TH/MM3 Eosinophils # (Auto) 0.0 TH/MM3 Basophils # (Auto) 0.0 TH/MM3 CBC Comment DIFF FINAL Differential Comment Blood Urea Nitrogen 12 MG/DL Creatinine 2.51 MG/DL Random Glucose 151 MG/DL Total Protein 7.0 GM/DL Albumin 3.2 GM/DL Calcium Level 8.2 MG/DL Alkaline Phosphatase 170 U/L Aspartate Amino Transf (AST/SGOT) 26 U/L Alanine Aminotransferase (ALT/SGPT) 24 U/L Total Bilirubin 0.6 MG/DL Sodium Level 127 MEQ/L Potassium Level 3.3 MEQ/L Chloride Level 89 MEQ/L Carbon Dioxide Level 28.2 MEQ/L Anion Gap 10 MEQ/L Estimat Glomerular Filtration Rate 20 ML/MIN Ethyl Alcohol Level LESS THAN 3 MG/DL Urine Opiates Screen NEG Urine Barbiturates Screen NEG Urine Amphetamines Screen NEG Urine Benzodiazepines Screen NEG Urine Cocaine Screen NEG Urine Cannabinoids Screen NEG Mental Status Examination Appearance woman, [facility], age appearing, irritable, superficially cooperative Speech: Unremarkable Orientation: x3 Memory: Unremarkable Thought Process: Logical, Organized, Goal Directed Thought Content: Unremarkable Language Fluent and spontaneous Fund of Knowledge Adequate for level of education Hallucination Type: Auditory Attention and Concentration: Good Suicidal Ideation: Yes Previous Suicide Attempts: Yes Homicidal Ideation: No Previous Homicide Attempts: No Judgment: Poor Affect: Anxious, Sad Mood: Angry, Irritable Motor Activity: Normal gait Assessment & Plan Problem List: (1) Bipolar 1 disorder, depressed ICD Codes: F31.9 - Bipolar disorder, unspecified Status: Chronic Assessment & Plan: On psychiatric evaluation today the patient presents poorly cooperative, very irritable, verbally hostile, reporting depressive mood, hearing voices telling her to kill herself and suicidal ideation with the plan of overdosing. Patient meets criteria for involuntary psychiatric admission at this moment. We restart Latuda 20 mg, trazodone 50 mg Lexapro 10 mg. sand control worker intervention for collateral information, psychosocial assessment, group and individual psychotherapy, to coordinate a safe discharge plan. Extensive support, motivation and psychoeducation provided. We'll consult medicine to continue medical care in the psychiatric floor. Transfer patient to psychiatry. Assessment & Plan Estimated LOS: Darnell Nieto MD Mar 27, 2017 15:05
[2017-03-27] MEDS ORDERED: PILL SPLITTER OTHER PRN (15:45)
--- NOTE | 2017-03-27 16:24 | PD.CONS ---
[facility] By Dr. Castillo Reason for Consult medical management Primary Care Physician Ashley Wilhelm MD Diagnoses: History of Present Illness This is a 51-year-old female past medical history of type Past Family Social History Allergies: Coded Allergies: No Known Allergies (Unverified , 12/01/16) Past Medical History ESRD Bipolar disorder HTN HLP COPD Hx of cocaine/THC use Past Surgical History A/V shunt X 3 Ovarian cyst drainage Reported Medications Reported Meds & Active Scripts Active Fibercon (Calcium Polycarbophil) 625 Mg Tab 1,250 Mg PO Q12HR PRN Polyethylene Glycol 3350 Powder (Polyethylene Glycol) 17 Gm Pow 17 Gm PO DAILY 14 Days Katalina-Colace (Sennosides-Docusate Sodium) 8.6-50 Mg Tab 1 Tab PO BID Oxygen tank (Oxygen) 1 Ea Tank 2 Liter JOSIAH.CANULA CONTINUOUS Oxygen Concentrator Portable Gaseous 2 L/min via Nasal Cannula Continuous For 99 months Trazodone (Trazodone HCl) 50 Mg Tab 75 Mg PO HS Reported Allopurinol 300 Mg Tab 300 Mg PO DAILY Albuterol Neb (Albuterol Sulfate) 2.5 Mg/0.5 Ml Neb 2.5 Mg NEB Q6HR NEB Note: The Albuterol Sulfate Inhalation Solution is concentrated and must be diluted. Read complete instructions carefully before using. Hydroxyzine HCl 10 Mg Tab 10 Mg PO BID Ativan (Lorazepam) 1 Mg Tab 1 Mg PO DAILY PRN Latuda (Lurasidone) 20 Mg Tab 20 Mg PO DAILY Auryxia (Ferric Citrate) 210 Mg Tab 210 Mg PO 2-3 TIMES A DAY Take with meals 2-3 times a day Atorvastatin (Atorvastatin Calcium) 20 Mg Tab 20 Mg PO HS Reglan (Metoclopramide HCl) 5 Mg Tab 5 Mg PO TIDAC Lexapro (Escitalopram Oxalate) 10 Mg Tab 10 Mg PO DAILY Active Ordered Medications Current Medications Trazodone HCl (Desyrel) 75 mg ONCE ONCE PO Last administered on 03/27/17t 01: 36; Start 03/27/17 at 01:15; Stop 03/27/17 at 01:17; Status DC Allopurinol (Zyloprim) 300 mg DAILY PO ; Start 03/27/17 at 15:00 Atorvastatin Calcium (Lipitor) 20 mg HS PO ; Start 03/27/17 at 21:00 Escitalopram Oxalate (Lexapro) 10 mg DAILY PO ; Start 03/27/17 at 15:00 Lorazepam (Ativan) 1 mg DAILY PRN PO ANXIETY AND/OR AGITATION; Start 03/27/17 at 15:00 Lurasidone HCl (Latuda) 20 mg DAILY PO ; Start 03/27/17 at 15:00 Trazodone HCl (Desyrel) 75 mg HS PO ; Start 03/27/17 at 21:00 Patient Own Medication PT OWN MED: RITA... TID PO ; Start 03/27/17 at 18:00; Status Future Hold Metoclopramide HCl (Reglan) 5 mg TIDAC PO ; Start 03/27/17 at 17:00 Lorazepam (Ativan) 1 mg Q6H PRN PO MODERATE TO SEVERE ANXIETY; Start 03/27/17 at 15:00 Lorazepam (Ativan Inj) 1 mg Q6H PRN IM MODERATE TO SEVERE ANXIETY; Start at 15:00 Lorazepam (Ativan) 0.5 mg Q12H PRN PO MODERATE TO SEVERE ANXIETY; Start at 15:00; Stop 03/27/17 at 15:27; Status DC Lorazepam (Ativan Inj) 0.5 mg Q12H PRN IM MODERATE TO SEVERE ANXIETY; Start at 15:00; Stop 03/27/17 at 15:26; Status DC Acetaminophen (Tylenol) 650 mg Q4H PRN PO Pain 1-5 or Temp >101F; Start at 15:00 Magnesium Hydroxide (Milk Of Magnesia Liq) 30 ml DAILY PRN PO CONSTIPATION; Start 03/27/17 at 15:00 Al Hydrox/Mg Hydrox/Simethicone (Mag-Al Plus Susp Liq) 30 ml Q6H PRN PO DYSPEPSIA; Start 03/27/17 at 15:00 Nicotine (Habitrol 21 Mg Patch.24 Hr) 1 patch DAILY T-DERMAL ; Start 03/27/17 at 15:00 Miscellaneous Information 1 DAILY T-DERMAL ; Start 03/28/17 at 09:00 Miscellaneous (Pill Splitter) 1 ea UNSCH PRN OTHER SEE LABEL COMMENTS; Start at 15:45 Family History Patient stated that her maternal and and uncle had diabetes. Social History Denies any alcohol, tobacco or illicit drug use. 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 Physical Exam Vital Signs Vital Signs Date Time Temp Pulse Resp B/P (MAP) Pulse Ox O2 Delivery O2 Flow Rate FiO2 03/27/17 14:13 151/70 (97) 97 Room Air 03/27/17 06:05 57 17 158/63 (94) 96 Room Air 03/26/17 23:01 60 18 146/63 (90) 97 Room Air 03/26/17 23:00 Room Air 03/26/17 17:45 99.1 63 18 180/77 (111) 98 Physical Exam GENERAL: This is a well-nourished, well-developed patient, in no apparent distress. SKIN: No rashes, ecchymoses or lesions. Cool and dry. HEAD: Atraumatic. Normocephalic. No temporal or scalp tenderness. EYES: Pupils equal round and reactive. Extraocular motions intact. No scleral icterus. No injection or drainage. ENT: Nose without bleeding, purulent drainage or septal hematoma. Throat without erythema, tonsillar hypertrophy or exudate. Uvula midline. Airway patent. NECK: Trachea midline. No JVD or lymphadenopathy. Supple, nontender, no meningeal signs. CARDIOVASCULAR: Regular rate and rhythm without murmurs, gallops, or rubs. RESPIRATORY: Clear to auscultation. Breath sounds equal bilaterally. No wheezes , rales, or rhonchi. GASTROINTESTINAL: Abdomen soft, non-tender, big belly No hepato-splenomegaly, or palpable masses. No guarding. MUSCULOSKELETAL: Extremities without clubbing, cyanosis, or edema. No joint tenderness, effusion, or edema noted. No calf tenderness. Negative Homans sign bilaterally. NEUROLOGICAL: Awake and alert. Cranial nerves II through XII intact. Motor and sensory grossly within normal limits. Five out of 5 muscle strength in all muscle groups. Normal speech. Laboratory Laboratory Tests Test 03/26/17 19:29 03/26/17 21:00 White Blood Count 4.7 Red Blood Count 3.74 Hemoglobin 10.7 Hematocrit 33.0 Mean Corpuscular Volume 88.2 Mean Corpuscular Hemoglobin 28.5 Mean Corpuscular Hemoglobin Concent 32.3 Red Cell Distribution Width 16.6 Platelet Count 127 Mean Platelet Volume 8.0 Neutrophils (%) (Auto) 71.8 Lymphocytes (%) (Auto) 16.7 Monocytes (%) (Auto) 10.0 Eosinophils (%) (Auto) 0.9 Basophils (%) (Auto) 0.6 Neutrophils # (Auto) 3.4 Lymphocytes # (Auto) 0.8 Monocytes # (Auto) 0.5 Eosinophils # (Auto) 0.0 Basophils # (Auto) 0.0 CBC Comment DIFF FINAL Differential Comment Blood Urea Nitrogen 12 Creatinine 2.51 Random Glucose 151 Total Protein 7.0 Albumin 3.2 Calcium Level 8.2 Alkaline Phosphatase 170 Aspartate Amino Transf (AST/SGOT) 26 Alanine Aminotransferase (ALT/SGPT) 24 Total Bilirubin 0.6 Sodium Level 127 Potassium Level 3.3 Chloride Level 89 Carbon Dioxide Level 28.2 Anion Gap 10 Estimat Glomerular Filtration Rate 20 Ethyl Alcohol Level LESS THAN 3 Urine Opiates Screen NEG Urine Barbiturates Screen NEG Urine Amphetamines Screen NEG Urine Benzodiazepines Screen NEG Urine Cocaine Screen NEG Urine Cannabinoids Screen NEG Result Diagram: 03/26/17192803/26/171928 Assessment and Plan Assessment and Plan 51-year-old female with past medical history of end-stage renal disease on hemodialysis, hypertension, COPD, chronic hyponatremia who presented with suicidal ideation [facility] consulted for medical management Bipolar disorder with suicidal ideation -Patient is Delatorre act and be managed by psychiatrist. -Management per psychiatrist. Hypertension/COPD/end-stage renal disease -Resume home medication. Consult nut chopper. Dr. Vinson does not come to this hospital. -Avoid nephrotoxins. Chronic hyponatremia -Most likely medication induced -Asymptomatic. Continue to monitor. DVT prophylaxis -Encourage ambulation. Discussed Condition With patient Shana Leroy MD Mar 27, 2017 16:24
[2017-03-27] MEDS: LURASIDONE 40 MG TAB PO SCH (16:42)
[2017-03-27] MEDS: ESCITALOPRAM OXALATE 10 MG TAB PO SCH (16:43)
[2017-03-27] MEDS: NICOTINE 21 MG/24 HR PATCH T-DERMAL SCH (16:43)
[2017-03-27] MEDS: METOCLOPRAMIDE HCL 10 MG TAB PO SCH (16:43)
[2017-03-27] MEDS ORDERED: FERRIC CITRATE 210 MG PO SCH (18:00)
[2017-03-27] MEDS: ATORVASTATIN 20 MG TAB PO SCH (21:00)
[2017-03-27] MEDS ORDERED: traZODone HCL 50 MG TAB PO SCH (21:00)
[2017-03-27 22:38] VITALS: BP 165/67; PULSE 68; RESP 17; TEMP 97.6; O2SAT 98
[2017-03-28 06:07] VITALS: BP 169/73; PULSE 64; RESP 16; TEMP 98.3; O2SAT 95
--- NOTE | 2017-03-28 08:13 | PD.CONS ---
[facility] Service Nephrology Consult Requested By Reason for Consult ESRD Primary Care Physician Ashley Wilhelm MD History of Present Illness 51 year old lady with history of ESRD, patient of Dr. Vinson. She is admitted to psychiatry because of suicidal ideations. She has history of bipolar illness. Review of Systems Constitutional: COMPLAINS OF: Fatigue, DENIES: Fever Eyes: DENIES: Blurred vision Cardiovascular: DENIES: Chest pain, Palpitations Gastrointestinal: DENIES: Abdominal pain, Black stools Musculoskeletal: DENIES: Joint pain Integumentary: DENIES: Abnormal pigmentation Neurologic: DENIES: Headache Psychiatric: DENIES: Confusion Past Family Social History Allergies: Coded Allergies: No Known Allergies (Unverified , 12/01/16) Past Medical History Hypertension COPD Bipolar illness ESRD Past Surgical History GENERAL: chronically ill appearing. She has AVG on the chest wall. SKIN: Warm and dry. HEAD: Normocephalic. EYES: No scleral icterus. No injection or drainage. NECK: Supple, trachea midline. No JVD or lymphadenopathy. CARDIOVASCULAR: Regular rate and rhythm without murmurs, gallops, or rubs. RESPIRATORY: Breath sounds equal bilaterally. No accessory muscle use. GASTROINTESTINAL: Abdomen soft, non-tender, nondistended. MUSCULOSKELETAL: No cyanosis, or edema. BACK: Nontender without obvious deformity. No CVA tenderness. Reported Medications Fibercon (Calcium Polycarbophil) 625 Mg Tab 1,250 Mg PO Q12HR PRN Polyethylene Glycol 3350 Powder (Polyethylene Glycol) 17 Gm Pow 17 Gm PO DAILY 14 Days Katalina-Colace (Sennosides-Docusate Sodium) 8.6-50 Mg Tab 1 Tab PO BID Oxygen tank (Oxygen) 1 Ea Tank 2 Liter JOSIAH.CANULA CONTINUOUS Oxygen Concentrator Portable Gaseous 2 L/min via Nasal Cannula Continuous For 99 months Trazodone (Trazodone HCl) 50 Mg Tab 75 Mg PO HS Reported Allopurinol 300 Mg Tab 300 Mg PO DAILY Albuterol Neb (Albuterol Sulfate) 2.5 Mg/0.5 Ml Neb 2.5 Mg NEB Q6HR NEB Note: The Albuterol Sulfate Inhalation Solution is concentrated and must be diluted. Read complete instructions carefully before using. Hydroxyzine HCl 10 Mg Tab 10 Mg PO BID Ativan (Lorazepam) 1 Mg Tab 1 Mg PO DAILY PRN Latuda (Lurasidone) 20 Mg Tab 20 Mg PO DAILY Auryxia (Ferric Citrate) 210 Mg Tab 210 Mg PO 2-3 TIMES A DAY Take with meals 2-3 times a day Atorvastatin (Atorvastatin Calcium) 20 Mg Tab 20 Mg PO HS Reglan (Metoclopramide HCl) 5 Mg Tab 5 Mg PO TIDAC Lexapro (Escitalopram Oxalate) 10 Mg Tab 10 Mg PO DAILY Active Ordered Medications Current Medications Medications (Trade) Dose Ordered Sig/Lora Route Start Time Stop Time Status Last Admin (Zyloprim) 300 mg DAILY PO 03/27/17 15:00 03/27/17 16:42 (Lipitor) 20 mg HS PO 03/27/17 21:00 (Lexapro) 10 mg DAILY PO 03/27/17 15:00 03/27/17 16:43 (Ativan) 1 mg DAILY PRN PO 03/27/17 15:00 (Latuda) 20 mg DAILY PO 03/27/17 15:00 03/27/17 16:42 (Desyrel) 75 mg HS PO 03/27/17 21:00 03/27/17 22:49 Patient Own Medication PT OWN MED: RTIA... TID PO 03/27/17 18:00 Future Hold (Reglan) 5 mg TIDAC PO 03/27/17 17:00 03/27/17 16:43 (Ativan) 1 mg Q6H PRN PO 03/27/17 15:00 (Ativan Inj) 1 mg Q6H PRN IM 03/27/17 15:00 (Tylenol) 650 mg Q4H PRN PO 03/27/17 15:00 (Milk Of Magnesia Liq) 30 ml DAILY PRN PO 03/27/17 15:00 (Mag-Al Plus Susp Liq) 30 ml Q6H PRN PO 03/27/17 15:00 (Habitrol 21 Mg Patch.24 Hr) 1 patch DAILY T-DERMAL 03/27/17 15:00 03/27/17 16:43 Miscellaneous Information 1 DAILY T-DERMAL 03/28/17 09:00 (Pill Splitter) 1 ea UNSCH PRN OTHER 03/27/17 15:45 Family History reviewed, non contributory Social History no current smoking or ETOH Physical Exam Vital Signs Vital Signs Date Time Temp Pulse Resp B/P (MAP) Pulse Ox O2 Delivery O2 Flow Rate FiO2 03/28/17 06:07 98.3 64 16 169/73 (105) 95 03/27/17 22:38 97.6 68 17 165/67 (99) 98 03/27/17 14:13 151/70 (97) 97 Room Air Result Diagram: 03/26/17192803/26/171928 Assessment and Plan Problem List: (1) ESRD (end stage renal disease) ICD Codes: N18.6 - End stage renal disease Status: Chronic Plan: continue dialysis support three times/week. Next dialysis will be tomorrow. She is requesting Emla cream for application over the AV access. Repeat labs. Monitor fluid and electrolytes. (2) Hyponatremia ICD Codes: E87.1 - Hypo-osmolality and hyponatremia Status: Acute Plan: In dialysis patients hyponatremia is usually due to excessive water intake. Needs fluid restriction. Monitor. (3) Hypertension ICD Codes: I10 - Essential (primary) hypertension Status: Chronic Plan: Monitor. Currently BP is high, not on antihypertensives. May need pharmacological therapy. (4) Anemia ICD Codes: D64.9 - Anemia, unspecified Status: Acute Plan: Epogen with dialysis. (5) Metabolic bone disease ICD Codes: E88.9 - Metabolic disorder, unspecified; M90.80 - Osteopathy in diseases classified elsewhere, unspecified site Status: Acute Plan: Monitor phosphorus periodically, use binders if appropriate. Assessment and Plan Thanks for the consult. Omar Momin MD Mar 28, 2017 08:13
[2017-03-28] MEDS ORDERED: ACETAMINOPHEN 325 MG TAB PO PRN (08:15)
[2017-03-28] MEDS ORDERED: ALBUMIN HUMAN 25% 25 GM/100 ML BAGP IV PRN (08:15)
[2017-03-28] MEDS ORDERED: GENTAMICIN SULFATE (DIALYSIS USE ONLY) 20 MG/2 ML VIAL OTHER PRN (08:15)
[2017-03-28] MEDS ORDERED: NITROGLYCERIN 0.4 MG SL 25 TABS/BTL SL PRN (08:15)
[2017-03-28] MEDS ORDERED: SODIUM CHLOR 0.9% 1000 ML INJ 1,000 ML IV PRN (08:15)
[2017-03-28] MEDS ORDERED: MANNITOL 12.5 GM/50 ML VIAL IV PRN (08:15)
[2017-03-28] MEDS ORDERED: SODIUM CHLOR 0.9% 1000 ML INJ 1,000 ML OTHER PRN ×2 (08:15)
[2017-03-28] MEDS ORDERED: SODIUM CHLORIDE 0.9% FLUSH 10 ML FLUSH IV FLUSH PRN (08:15)
[2017-03-28] MEDS ORDERED: cloNIDine HCL 0.1 MG TAB PO PRN (08:15)
[2017-03-28] MEDS ORDERED: GELATIN 12 MM/7 MM FOAM TOP PRN (08:15)
[2017-03-28] MEDS ORDERED: EPOETIN ALFA 10,000 UNITS/ML VIAL IV PRN (08:15)
[2017-03-28] MEDS ORDERED: diphenhydrAMINE HCL 25 MG CAP PO PRN (08:15)
[2017-03-28] MEDS ORDERED: HEPARIN SODIUM - IV 10,000 UNITS/10 ML VIAL IV FLUSH PRN (08:15)
[2017-03-28] MEDS ORDERED: ONDANSETRON HCL 4 MG/2 ML VIAL IV PUSH PRN (08:15)
[2017-03-28] MEDS ORDERED: HEPARIN SODIUM - IV 10,000 UNITS/10 ML VIAL PRN (08:15)
[2017-03-28] MEDS: REMOVE OLD PATCH T-DERMAL SCH (09:00)
--- NOTE | 2017-03-28 09:16 | HHI.PR ---
Subjective Remarks No acute events overnight. Patient remains hypertensive with systolic blood pressure in the 150s-160s. Endorses intermittent abdominal pain relieved with bowel movements. Denies loss of appetite and is eating during her interview. States her mood is still depressed but denies suicidal ideation. Continues to hear voices. Objective Vitals Vital Signs Date Time Temp Pulse Resp B/P (MAP) Pulse Ox O2 Delivery O2 Flow Rate FiO2 03/28/17 06:07 98.3 64 16 169/73 (105) 95 03/27/17 22:38 97.6 68 17 165/67 (99) 98 03/27/17 14:13 151/70 (97) 97 Room Air I/O 03/27/17 03/27/17 03/27/17 03/28/17 03/28/17 03/28/17 07:00 15:00 23:00 07:00 15:00 23:00 Intake Total 360 ml Balance 360 ml Intake Oral 360 ml Result Diagram: 03/26/17192803/26/171928 Objective Remarks Gen.: No acute distress Head: Normocephalic. Atraumatic. EENT: Pupils equal round and reactive to light. Nose without drainage. Airway intact. Throat without injection. Cardiovascular: Regular rate and rhythm. No murmurs, rubs or gallops. Respiratory: Lungs clear to auscultation bilaterally. No wheezes or rhonchi. Abdomen: Soft, nontender, nondistended. No peritoneal signs. Musculoskeletal: No gross deformities. No edema. Skin: No obvious rashes or erythema. Neuro: Sensory and motor grossly intact. Cranial nerves II through XII grossly intact. A/P Assessment and Plan 51-year-old female with past medical history of end-stage renal disease on hemodialysis, hypertension, COPD, chronic hyponatremia who presented with suicidal ideation [facility] consulted for medical management Bipolar disorder with suicidal ideation -Patient is Delatorre act and be managed by psychiatrist. -Management per psychiatrist. Hypertension -Uncontrolled -Start patient on amlodipine, continue to monitor and adjust when necessary -Clonidine when necessary COPD -Patient is unsure if she is on any home medications however her will bring these and -Oxygenating well on room air -Monitor End-stage renal disease -Consulted nephrology, who will continue dialysis 3 times per week Chronic hyponatremia -Concern for excessive water intake -Water restriction DVT prophylaxis -Encourage ambulation. Discharge Planning Per primary team Judith Palumbo MD R3 Mar 28, 2017 09:16
[2017-03-28] MEDS: NICOTINE 21 MG/24 HR PATCH T-DERMAL SCH (09:23)
[2017-03-28] MEDS: LURASIDONE 40 MG TAB PO SCH (09:23)
[2017-03-28 09:44] LABS: ANION GAP 10 MEQ/L (5-15); BICARBONATE 28.8 MEQ/L (21.0-32.0); CHLORIDE 89 MEQ/L (98-107); GLOMERULAR FILTRATION RATE 10 ML/MIN (>89); POTASSIUM 4.5 MEQ/L (3.5-5.1); SODIUM (NA) 128 MEQ/L (136-145)
[2017-03-28 09:59] LABS: BLOOD UREA NITROGEN 34 MG/DL (7-18)
[2017-03-28 10:02] LABS: HDL CHOLESTEROL 48.9 MG/DL (40.0-60.0); LDL CHOLESTEROL 80 MG/DL (0-99)
[2017-03-28 10:26] LABS: HEMOGLOBIN A1b 0.8 %; HEMOGLOBIN Ao 85.8 %; HEMOGLOBIN F 1.3 %; HEMOGLOBIN LA1C 2.1 %; HEMOGLOBIN P3 4.9 %
[2017-03-28] MEDS: METOCLOPRAMIDE HCL 10 MG TAB PO SCH ×3 (10:57→17:49)
[2017-03-28] MEDS: ALLOPURINOL 100 MG TAB PO SCH (10:57)
[2017-03-28] MEDS: ESCITALOPRAM OXALATE 10 MG TAB PO SCH (10:57)
[2017-03-28] MEDS: amLODIPine BESYLATE 5 MG TAB PO SCH (10:57)
--- NOTE | 2017-03-28 14:54 | HHI.PYPN ---
Subjective Remarks She was seen today for psychiatric reevaluation, patient reports feeling depressed, difficulty sleeping at night, hopeless, helpless, with suicidal ideation, no plan, she also has been hearing voices telling her to kill herself. She is oriented 3, no cognitive impairment present. Compliant with medications, no agitation or aggressive behavior reported. Review of Systems Other No somatic complaints Objective Alert: Yes [place]: Person, Place, Date, Situation Mood: Depressed Affect: Flat Memory Intact: Immediate, Recent Hallucinations: Auditory Delusions: No Delusion Type: Other (not elicited) Suicidal: Ideation (SI, no plan) Homicidal: Ideation (no HI) Insight/Judgment Poor Labs Test 03/28/17 09:00 Blood Urea Nitrogen 34 MG/DL Creatinine 4.49 MG/DL Random Glucose 145 MG/DL Calcium Level 9.0 MG/DL Sodium Level 128 MEQ/L Potassium Level 4.5 MEQ/L Chloride Level 89 MEQ/L Carbon Dioxide Level 28.8 MEQ/L Anion Gap 10 MEQ/L Estimat Glomerular Filtration Rate 10 ML/MIN Hemoglobin A1c 5.0 % Triglycerides Level 197 MG/DL Cholesterol Level 168 MG/DL LDL Cholesterol 80 MG/DL HDL Cholesterol 48.9 MG/DL Cholesterol/HDL Ratio 3.43 RATIO Vitals/IOs Vital Signs Date Time Temp Pulse Resp B/P (MAP) Pulse Ox O2 Delivery O2 Flow Rate FiO2 03/28/17 06:07 98.3 64 16 169/73 (105) 95 03/27/17 14:13 Room Air Intake and Output 03/28/17 03/28/17 03/29/17 08:00 16:00 00:00 Intake Total 360 ml Balance 360 ml Assessment & Plan Problem List: (1) Bipolar 1 disorder, depressed ICD Codes: F31.9 - Bipolar disorder, unspecified Status: Chronic Assessment & Plan: She continues to report depressive symptoms and commanding type auditory hallucinations. We will increase trazodone 200 mg at bedtime for depression and insomnia, increase Latuda to 40 mg daily. Assessment & Plan Estimated LOS: days Justification for Cont. Inpt. Patient is severely depressed, acutely psychotic, needs to continue psychiatric hospitalization for stabilization. Darnell Castillo MD Mar 28, 2017 14:54
[2017-03-28 17:00] VITALS: O2SAT 95
[2017-03-28] MEDS: ACETAMINOPHEN 325 MG TAB PO PRN (17:49)
[2017-03-28 18:57] VITALS: BP 164/67; PULSE 73; RESP 18; TEMP 98.4
[2017-03-28] MEDS: ATORVASTATIN 20 MG TAB PO SCH (20:42)
[2017-03-28] MEDS: traZODone HCL 100 MG TAB PO SCH (20:42)
[2017-03-28 21:45] VITALS: O2SAT 94
[2017-03-29 05:43] VITALS: BP 146/65; PULSE 76; RESP 18; TEMP 97.7; O2SAT 94
[2017-03-29] MEDS: METOCLOPRAMIDE HCL 10 MG TAB PO SCH ×3 (08:00→14:14)
[2017-03-29] MEDS: NICOTINE 21 MG/24 HR PATCH T-DERMAL SCH (09:00)
[2017-03-29] MEDS: LURASIDONE 40 MG TAB PO SCH (09:00)
[2017-03-29] MEDS ORDERED: LIDOCAINE-PRILOCAIN 2.5% CREAM 5 GM TUBE TOPICAL SCH (09:00)
[2017-03-29] MEDS: ALLOPURINOL 100 MG TAB PO SCH (09:00)
[2017-03-29] MEDS: ESCITALOPRAM OXALATE 10 MG TAB PO SCH (09:00)
[2017-03-29] MEDS: REMOVE OLD PATCH T-DERMAL SCH (09:00)
[2017-03-29] MEDS: amLODIPine BESYLATE 5 MG TAB PO SCH (09:00)
--- NOTE | 2017-03-29 10:49 | HHI.NPPN ---
Subjective Interval History patient was seen during dialysis. She is sleepy. Comfortable. On 3K, UF goal is 3 liters. Review of Systems General Constitutional: Fatigue Objective Data Data Vital Signs Date Time Temp Pulse Resp B/P (MAP) Pulse Ox O2 Delivery O2 Flow Rate FiO2 03/29/17 05:43 97.7 76 18 146/65 (92) 94 03/28/17 21:45 94 21 03/28/17 18:57 98.4 73 18 164/67 (99) 03/28/17 17:00 95 21 -: 03/26/17 1929 03/28/17 0900 Physical Exam General Appearance: No Acute Distress Throat Throat Exam: Oral Mucosa [place] & Moist Neck Neck Exam: Neck Supple Pulmonary Resp Exam: Clear Bilaterally Cardiology CV Exam: Regular, Normal Sinus Rhythm Gastrointestinal/Abdomen GI Exam: Soft, Non-Tender, Bowel Sounds Present Musculoskeletal MS Exam: Joints Intact Extremeties Extremities Exam: No Edema Assessment/Plan Problem List: (1) ESRD (end stage renal disease) ICD Codes: N18.6 - End stage renal disease Status: Chronic Plan: continue dialysis support three times/week. Next dialysis will be tomorrow. Repeat labs. Monitor fluid and electrolytes. (2) Hyponatremia ICD Codes: E87.1 - Hypo-osmolality and hyponatremia Status: Acute Plan: In dialysis patients hyponatremia is usually due to excessive water intake. Needs fluid restriction. Monitor. Improved. (3) Hypertension ICD Codes: I10 - Essential (primary) hypertension Status: Chronic Plan: Monitor. Currently BP is high, not on antihypertensives. May need pharmacological therapy. (4) Anemia ICD Codes: D64.9 - Anemia, unspecified Status: Acute Plan: Epogen with dialysis. (5) Metabolic bone disease ICD Codes: E88.9 - Metabolic disorder, unspecified; M90.80 - Osteopathy in diseases classified elsewhere, unspecified site Status: Acute Plan: Monitor phosphorus periodically, use binders if appropriate. Omar Momin MD Mar 29, 2017 10:49
--- NOTE | 2017-03-29 12:33 | HHI.PR ---
Subjective Remarks Patient resting in bed, no chest pain short of breath, no fever or chills Objective Vitals Vital Signs Date Time Temp Pulse Resp B/P (MAP) Pulse Ox O2 Delivery O2 Flow Rate FiO2 03/29/17 05:43 97.7 76 18 146/65 (92) 94 03/28/17 21:45 94 21 03/28/17 18:57 98.4 73 18 164/67 (99) 03/28/17 17:00 95 21 I/O 03/28/17 03/28/17 03/28/17 03/29/17 03/29/17 03/29/17 07:00 15:00 23:00 07:00 15:00 23:00 Intake Total 360 ml 480 ml 120 ml Balance 360 ml 480 ml 120 ml Intake Oral 360 ml 480 ml 120 ml # Voids 3 2 Result Diagram: 03/26/17 19203/28/17 0900 Objective Remarks GENERAL: This is a well-nourished, well-developed patient, in no apparent distress. SKIN: No rashes, warm and dry HEAD: Atraumatic. Normocephalic. EYES: Pupils equal round and reactive. Extraocular motions intact. No scleral icterus. ENT: Nose without bleeding, or drainage, Airway patent. NECK: Trachea midline. Supple CARDIOVASCULAR: Regular rate and rhythm without murmurs, gallops, or rubs. RESPIRATORY: Fair air entry bilaterally. No wheezes, rales, or rhonchi. GASTROINTESTINAL: Abdomen soft, non-tender, nondistended. Positive bowel sounds MUSCULOSKELETAL: Extremities without clubbing, cyanosis, or edema. Pedal pulses appreciated NEUROLOGICAL: Awake and alert. Moves all extremity. Normal speech.no focal neurological deficit A/P Assessment and Plan 03/29: Stable doing well, continue hemodialysis with nephrology, follow BMP 51-year-old female with past medical history of end-stage renal disease on hemodialysis, hypertension, COPD, chronic hyponatremia who presented with suicidal ideation [facility] consulted for medical management Bipolar disorder with suicidal ideation -Patient is Delatorre act and be managed by psychiatrist. -Management per psychiatrist. Hypertension -Uncontrolled -Start patient on amlodipine, continue to monitor and adjust when necessary -Clonidine when necessary COPD -Patient is unsure if she is on any home medications however her will bring these and -Oxygenating well on room air -Monitor End-stage renal disease -Consulted nephrology, who will continue dialysis 3 times per week Chronic hyponatremia -Concern for excessive water intake -Water restriction DVT prophylaxis -Encourage ambulation. Janki Taylor MD Mar 29, 2017 12:33
[2017-03-29] MEDS: ACETAMINOPHEN 325 MG TAB PO PRN (14:18)
--- NOTE | 2017-03-29 15:07 | HHI.PYPN ---
Subjective Remarks Patient was seen today for psychiatric reevaluation, patient reports to continue to be depressed, with lack of motivation, with intrusive thoughts of being better , generalized pessimism, episodes of crying, suicidal thoughts , no plan. She was able to contract for safety in the unit. She says that she wants to get better, but she doesn't know how to get better. Patient has been compliant with medications, no significant side effects. As per nurses patient has been isolative, guarded, interacting poorly. Review of Systems Other No somatic complaints Objective Alert: Yes [place]: Person, Place, Date, Situation Mood: Depressed Affect: Flat Memory Intact: Immediate, Recent Hallucinations: Auditory Delusions: No Delusion Type: Other (not elicited) Suicidal: Ideation (SI, no plan) Homicidal: Ideation (no HI) Insight/Judgment Poor Vitals/IOs Vital Signs Date Time Temp Pulse Resp B/P (MAP) Pulse Ox O2 Delivery O2 Flow Rate FiO2 03/29/17 05:43 97.7 76 18 146/65 (92) 94 03/28/17 21:45 21 03/27/17 14:13 Room Air Intake and Output 03/29/17 03/29/17 03/30/17 08:00 16:00 00:00 Intake Total 120 ml Output Total 3000 ml Balance 120 ml -3000 ml Assessment & Plan Problem List: (1) Bipolar 1 disorder, depressed ICD Codes: F31.9 - Bipolar disorder, unspecified Status: Chronic Assessment & Plan: Will increase Lexapro to 20 mg for depression. Extensive support, motivation and psychoeducation provided. Assessment & Plan Estimated LOS: days Justification for Cont. Inpt. Patient is acutely depressed, with suicidal ideation, he represents a danger to herself and needs to continue psychiatric hospitalization for stabilization. Darnell Castillo MD Mar 29, 2017 15:07
[2017-03-29 18:00] VITALS: BP 167/72; PULSE 77; RESP 18; TEMP 98.5; O2SAT 96
[2017-03-29 19:39] LABS: AUTOMATED NEUTROPHIL # 2.8 TH/MM3 (1.8-7.7); BASOPHIL % 0.9 % (0.0-2.0); EOSINOPHIL # 0.1 TH/MM3 (0-0.4); EOSINOPHIL % 1.5 % (0.0-4.0); HEMATOCRIT 31.7 % (35.0-46.0); HEMO FLAGS DIFF FINAL; LYMPH % 18.3 % (9.0-44.0); LYMPHOCYTE # 0.8 TH/MM3 (1.0-4.8); MEAN CELL VOLUME 86.1 FL (80.0-100.0); MEAN CORPUSCULAR HEMOGLOBIN 28.1 PG (27.0-34.0); MEAN CORPUSCULAR HGB CONC 32.7 % (32.0-36.0); MONO % 14.5 % (0.0-8.0); NEUT % 64.8 % (16.0-70.0); PLATELET COUNT 116 TH/MM3 (150-450); RED BLOOD COUNT 3.68 MIL/MM3 (4.00-5.30); RED CELL DISTRIBUTION WIDTH 16.4 % (11.6-17.2); WHITE BLOOD COUNT 4.2 TH/MM3 (4.0-11.0)
[2017-03-29 19:49] LABS: BICARBONATE 32.3 MEQ/L (21.0-32.0); POTASSIUM 4.6 MEQ/L (3.5-5.1)
[2017-03-29] MEDS: ATORVASTATIN 20 MG TAB PO SCH (20:59)
[2017-03-29] MEDS: traZODone HCL 100 MG TAB PO SCH (20:59)
[2017-03-30 06:40] VITALS: BP 176/72; PULSE 80; RESP 16; TEMP 98.2; O2SAT 94
[2017-03-30] MEDS: LURASIDONE 40 MG TAB PO SCH (08:06)
[2017-03-30] MEDS: amLODIPine BESYLATE 5 MG TAB PO SCH (08:06)
[2017-03-30] MEDS: ALLOPURINOL 100 MG TAB PO SCH (08:06)
[2017-03-30] MEDS: METOCLOPRAMIDE HCL 10 MG TAB PO SCH ×2 (08:06→12:00)
[2017-03-30] MEDS: NICOTINE 21 MG/24 HR PATCH T-DERMAL SCH (08:09)
[2017-03-30] MEDS: REMOVE OLD PATCH T-DERMAL SCH (08:09)
[2017-03-30] MEDS ORDERED: ESCITALOPRAM OXALATE 10 MG TAB PO SCH (09:00)
[2017-03-30 10:04] LABS: BICARBONATE 32.4 MEQ/L (21.0-32.0); POTASSIUM 4.6 MEQ/L (3.5-5.1)
[2017-03-30 10:07] VITALS: BP 161/70
--- NOTE | 2017-03-30 10:49 | HHI.PYPN ---
Subjective Remarks Patient seen for psychiatric reevaluation today patient reports feeling better today, improved mood, 6-10, compared with 4-10 yesterday. Patient has less intrusive thoughts about suicidality, expressed motivation to continue psychiatric and medical treatment and get better. She reports improved appetite , better sleep last night. She is oriented 3, no fluctuation consciousness, no cognitive impairment present. Compliant with her medications, no significant side effects. Review of Systems Constitutional: DENIES: Diaphoretic episodes, Fatigue, Fever, Weight gain, Weight loss, Chills, Dizziness, Change in appetite, Night Sweats Endocrine: DENIES: Abnorml menstrual pattern, Heat/cold intolerance, Polydipsia , Polyuria, Polyphagia Eyes: DENIES: Blurred vision, Diplopia, Eye inflammation, Eye pain, Vision loss , Photosensitivity, Double Vision Ears, nose, mouth, throat: DENIES: Tinnitus, Hearing loss, Vertigo, Nasal discharge, Oral lesions, Throat pain, Hoarseness, Ear Pain, Running Nose, Epistaxis, Sinus Pain, Toothache, Odynophagia Respiratory: DENIES: Apneas, Cough, Snoring, Wheezing, Hemoptysis, Sputum production, Shortness of breath Cardiovascular: DENIES: Chest pain, Palpitations, Syncope, Dyspnea on Exertion , PND, Lower Extremity Edema, Orthopnea, Claudication Musculoskeletal: DENIES: Joint pain, Muscle aches, Stiffness, Joint Swelling, Back pain, Neck pain Integumentary: DENIES: Abnormal pigmentation, Pruritus, Rash, Nail changes, Breast masses, Breast skin changes, Nipple discharge Hematologic/lymphatic: DENIES: Bruising, Lymphadenopathy Neurologic: DENIES: Abnormal gait, Headache, Localized weakness, Paresthesias, Seizures, Speech Problems, Tremor, Poor Balance Psychiatric: COMPLAINS OF: Depression, Suicidal Ideation Objective Alert: Yes [place]: Person, Place, Date, Situation Mood: Depressed Affect: Flat Memory Intact: Immediate, Recent Hallucinations: Auditory Delusions: No Delusion Type: Other (not elicited) Suicidal: Ideation (SI, no plan) Homicidal: Ideation (no HI) Insight/Judgment Improved Labs Test 03/29/17 19:20 03/30/17 08:30 White Blood Count 4.2 TH/MM3 Red Blood Count 3.68 MIL/MM3 Hemoglobin 10.4 GM/DL Hematocrit 31.7 % Mean Corpuscular Volume 86.1 FL Mean Corpuscular Hemoglobin 28.1 PG Mean Corpuscular Hemoglobin Concent 32.7 % Red Cell Distribution Width 16.4 % Platelet Count 116 TH/MM3 Mean Platelet Volume 7.7 FL Neutrophils (%) (Auto) 64.8 % Lymphocytes (%) (Auto) 18.3 % Monocytes (%) (Auto) 14.5 % Eosinophils (%) (Auto) 1.5 % Basophils (%) (Auto) 0.9 % Neutrophils # (Auto) 2.8 TH/MM3 Lymphocytes # (Auto) 0.8 TH/MM3 Monocytes # (Auto) 0.6 TH/MM3 Eosinophils # (Auto) 0.1 TH/MM3 Basophils # (Auto) 0.0 TH/MM3 CBC Comment DIFF FINAL Differential Comment Hematology Comments Blood Urea Nitrogen 19 MG/DL 22 MG/DL Creatinine 3.17 MG/DL 3.91 MG/DL Random Glucose 129 MG/DL 137 MG/DL Albumin 3.3 GM/DL Calcium Level 8.5 MG/DL 9.0 MG/DL Phosphorus Level 2.3 MG/DL Sodium Level 132 MEQ/L 130 MEQ/L Potassium Level 4.6 MEQ/L 4.6 MEQ/L Chloride Level 92 MEQ/L 91 MEQ/L Carbon Dioxide Level 32.3 MEQ/L 32.4 MEQ/L Anion Gap 8 MEQ/L 7 MEQ/L Estimat Glomerular Filtration Rate 16 ML/MIN 12 ML/MIN Vitals/IOs Vital Signs Date Time Temp Pulse Resp B/P (MAP) Pulse Ox O2 Delivery O2 Flow Rate FiO2 03/30/17 10:07 161/70 (100) 03/30/17 06:40 98.2 80 16 94 03/28/17 21:45 21 03/27/17 14:13 Room Air Intake and Output 03/30/17 03/30/17 03/31/17 08:00 16:00 00:00 Intake Total 240 ml Balance 240 ml Assessment & Plan Problem List: (1) Bipolar 1 disorder, depressed ICD Codes: F31.9 - Bipolar disorder, unspecified Status: Chronic Assessment & Plan: Continue current psychotropics, extensive support, motivation and psychoeducation provided. Assessment & Plan Estimated LOS: days Justification for Cont. Inpt. Patient has an increased chance to decompensate at a lower level of care. Darnell Castillo MD Mar 30, 2017 10:49
--- NOTE | 2017-03-30 12:08 | HHI.PR ---
Subjective Remarks Resting comfortably in bed No event overnight Denied chest and or short of breath No fever or chills Objective Vitals Vital Signs Date Time Temp Pulse Resp B/P (MAP) Pulse Ox O2 Delivery O2 Flow Rate FiO2 03/30/17 10:07 161/70 (100) 03/30/17 06:40 98.2 80 16 176/72 (106) 94 03/29/17 18:00 98.5 77 18 167/72 (103) 96 I/O 03/29/17 03/29/17 03/29/17 03/30/17 03/30/17 03/30/17 07:00 15:00 23:00 07:00 15:00 23:00 Intake Total 120 ml 360 ml 240 ml 240 ml Output Total 3000 ml Balance 120 ml -3000 ml 360 ml 240 ml 240 ml Intake Oral 120 ml 360 ml 240 ml 240 ml Output Hemodialysis 3000 ml # Voids 2 2 2 Result Diagram: 03/29/17 1920 03/30/17 0830 Objective Remarks GENERAL: This is a well-nourished, well-developed patient, in no apparent distress. SKIN: No rashes, warm and dry HEAD: Atraumatic. Normocephalic. EYES: Pupils equal round and reactive. Extraocular motions intact. No scleral icterus. ENT: Nose without bleeding, or drainage, Airway patent. NECK: Trachea midline. Supple CARDIOVASCULAR: Regular rate and rhythm without murmurs, gallops, or rubs. RESPIRATORY: Fair air entry bilaterally. No wheezes, rales, or rhonchi. GASTROINTESTINAL: Abdomen soft, non-tender, nondistended. Positive bowel sounds MUSCULOSKELETAL: Extremities without clubbing, cyanosis, or edema. Pedal pulses appreciated NEUROLOGICAL: Awake and alert. Moves all extremity. Normal speech.no focal neurological deficit A/P Assessment and Plan 03/29: Stable doing well, continue hemodialysis with nephrology, follow BMP 03/30 patient doing well except blood pressure still not optimized, I will increase amlodipine to 10 mg, patient medically stable to be discharged and follow up as an outpatient A/P: 51-year-old female with past medical history of end-stage renal disease on hemodialysis, hypertension, COPD, chronic hyponatremia who presented with suicidal ideation [facility] consulted for medical management Bipolar disorder with suicidal ideation -Patient is Delatorre act and be managed by psychiatrist. -Management per psychiatrist. Hypertension -Uncontrolled -Start patient on amlodipine, continue to monitor and adjust when necessary -Clonidine when necessary COPD -Patient is unsure if she is on any home medications however her will bring these and -Oxygenating well on room air -Monitor End-stage renal disease -Consulted nephrology, who will continue dialysis 3 times per week Chronic hyponatremia -Concern for excessive water intake -Water restriction DVT prophylaxis -Encourage ambulation. Janki Taylor MD Mar 30, 2017 12:08
[2017-03-30] MEDS ORDERED: LEXA10TA PO (12:18)
[2017-03-30] MEDS ORDERED: LURA20TA PO (12:19)
[2017-03-30] MEDS ORDERED: TRAZ50TA12 PO (12:19)
[2017-03-30] MEDS: ACETAMINOPHEN 325 MG TAB PO PRN (12:52)
[2017-03-30 13:28] VITALS: RESP 18
--- NOTE | 2017-04-27 12:19 | HHI.DS ---
Psychiatry Discharge Summary Inpatient Psychiatric care?: Yes Advance Directive: No Reason Not Provided: has none Mental Health AdvanceDirective: No Health Care Proxy: No Admission Admission Date Mar 27, 2017 at 14:58 Admission Diagnosis: (1) Bipolar 1 disorder, depressed ICD Code: F31.9 - Bipolar disorder, unspecified Brief History The patient is a 51 year-old woman, domiciled with her , with psychiatric history bipolar disorder, multiple psychiatric hospitalizations, last hospitalization was here at [facility] in 2016, she is on Latuda 20 mg, trazodone 50 mg, Lexapro 10 mg, previous suicidal attempts, medical history of chronic kidney disease on dialysis presents to the emergency room under [place] act for evaluation of suicidal ideation. Patient states she has had increasing suicidal thoughts over the past several months. She has no specific reason for being suicidal or any plan. She denies any medical complaints at this time. Denies drug or alcohol use. She last had dialysis this morning. Patient makes urine several times per day. Patient has history of bipolar disorder but she has been taking her medications. States they did not work. Tobacco Use In Past 30 Days: Cigarettes But Not Daily Alcohol Use: Never Hospital Course Please refer to the last progress note in March 30, 2017 Results Blood Pressure 161 / 70 Reviewed Laboratory Results Test 03/28/17 09:00 Cholesterol Level 168 MG/DL (120-200) HDL Cholesterol 48.9 MG/DL (40.0-60.0) Hemoglobin A1c 5.0 % (4.3-6.0) LDL Cholesterol 80 MG/DL (0-99) Triglycerides Level 197 MG/DL (42-150) Summary of Procedures None Pending results at discharge: No Medications # of Antipsychotic meds at D/C: 1 Approp Antipsych med options 1 - Minimum of three failed multiple trials of monotherapy. 2 - Documented plan to taper to monotherapy due to previous use of multiple meds OR cross-taper in progress at D/C. 3 - Documentation of augmentation of Clozapine. 4 - Justification other than those listed in allowable values 1-3, document here : Discharge Discharge Date: Mar 30, 2017 Discharge Diagnosis: (1) Delirium due to general medical condition Diagnosis: Principal ICD Code: F05 - Delirium due to known physiological condition Status: Acute Pt Condition on Discharge: Fair Discharge Disposition: Discharge Home Discharge Instructions Diet Instructions: Heart Healthy Diet Activities you can perform: Weight Bearing as Mamie Scheduled Appointment: Primary Care Physician Appointment Date: Mar 31, 2017 Appointment Time: 2:15 Discharge Time > 30 minutes Discharge/Advance Care Plan Health Problems: (1) Bipolar 1 disorder, depressed Goals to promote your health * To prevent worsening of your condition and complications * To maintain your health at the optimal level Directions to meet your goals Take your medications as prescribed Follow your dietary instruction Follow activity as directed Keep your appointments as scheduled Take your immunizations and boosters as scheduled If your symptoms worsen call your PCP, if no PCP go to Urgent Care Center or Emergency Room For 01/02 questions related to your inpatient stay or results of tests pending at discharge, please contact Dr. Darnell Castillo at Smoking is Dangerous to Your Health. Avoid second hand smoking Darnell Castillo MD Apr 27, 2017 12:19
== END 2017-03-30 13:45 | disposition home or self-care (01) | DRG 885 ==
LOC: NEDAMB 17:23 → NEDA 03-27 14:58 → H4EA 03-27 19:57
PROVIDERS: ADMIT Psychiatry & Neurology Psychiatry; ATTEND Psychiatry & Neurology Psychiatry
PROC: 5A1D00Z (ICD-10-PCS; principal; 2017-03-29)
DX: F31.9 Bipolar disorder, unspecified (principal); R45.851 Suicidal ideations; E87.1 Hypo-osmolality and hyponatremia; Z79.02 Long term (current) use of antithrombotics/antiplatelets; F41.9 Anxiety disorder, unspecified; F17.210 Nicotine dependence, cigarettes, uncomplicated; E78.5 Hyperlipidemia, unspecified; J44.9 Chronic obstructive pulmonary disease, unspecified
CPT/HCPCS: 80048; 80053; 80061; 80307; 82040; 83036; 84100; 85025; 90935; 96374; J7030; Q4081

== ENCOUNTER 2017-04-04 20:54 | Inpatient (IN) | payer MEDICARE, OTHER ==
[~2017-04-04] VITALS: Ht 142.2 cm; Wt 54.0 kg
[~2017-04-04 20:54] MED LIST changes: +ALBU.5I NEB; +ALLO300T2 PO; -B-CO1CAP9 PO; -BENZ2TAB PO; +FERRIC CITRATE 1 GM PO SCH; +HYDR-755 PO; +LORA-474 PO; -LOSA50TA PO; +LURA20TA PO; -LURA40 PO; -NEUR100C PO; -PLAV75TA29 PO; -SENS60TA PO
[2017-04-04 21:11] VITALS: BP 225/93; PULSE 78; RESP 24; TEMP 98.3; O2SAT 94
[2017-04-04] MEDS ORDERED: hydrALAZINE HCL 20 MG/ML VIAL IV PUSH ONE (21:30)
[2017-04-04] MEDS ORDERED: SODIUM CHLORIDE 0.9% FLUSH 10 ML FLUSH IVF PRN (21:30)
[2017-04-04] MEDS ORDERED: methylPREDNISolone SOD SUCC 125 MG/2 ML VIAL IV PUSH ONE (21:30)
[2017-04-04 21:53] LABS: AUTOMATED NEUTROPHIL # 4.8 TH/MM3 (1.8-7.7); BASOPHIL % 0.6 % (0.0-2.0); EOSINOPHIL % 0.7 % (0.0-4.0); HEMO FLAGS DIFF FINAL; LYMPH % 20.8 % (9.0-44.0); LYMPHOCYTE # 1.4 TH/MM3 (1.0-4.8); MEAN CELL VOLUME 87.2 FL (80.0-100.0); MEAN CORPUSCULAR HEMOGLOBIN 28.4 PG (27.0-34.0); MEAN CORPUSCULAR HGB CONC 32.5 % (32.0-36.0); MONO % 7.5 % (0.0-8.0); NEUT % 70.4 % (16.0-70.0); PLATELET COUNT 169 TH/MM3 (150-450); RED BLOOD COUNT 3.79 MIL/MM3 (4.00-5.30); RED CELL DISTRIBUTION WIDTH 16.5 % (11.6-17.2); WHITE BLOOD COUNT 6.9 TH/MM3 (4.0-11.0)
--- NOTE | 2017-04-04 21:59 | PD ---
HPI Chief Complaint: Respiratory Distress Time Seen by Provider: 21:18 Travel History International Travel<30 days: No Contact w/Intl Traveler<30days: No Traveled to known affect area: No History of Present Illness HPI Patient is a 51-year-old female presented to emergency department for evaluation of nausea, vomiting, weakness, shortness of breath. Patient states that she's been feeling sick for the last several days. She reports productive cough with green sputum. She denies any fevers but states she's been sweaty and clammy as well as dizzy at times. She denies any chest pain, abdominal pain , headache. Patient reports a history of COPD, chronic renal failure on hemodialysis. She has a left chest AV fistula. She is due to be dialyzed tomorrow. PFSH Past Medical History Hx Anticoagulant Therapy: Yes (PLAVIX) Asthma: No Blood Disorders: No Bipolar Disorder: Yes (A/V HALLUCINATION) Anxiety: Yes Depression: Yes Heart Rhythm Problems: No Cancer: No High Cholesterol: Yes Chest Pain: No Congestive Heart Failure: No COPD: Yes Diabetes: Yes Patient Takes Glucophage: No Dialysis: Yes ([facility]) Diminished Hearing: No Gastrointestinal Disorders: No Genitourinary: Yes Hypertension: Yes Immune Disorder: No Implanted Vascular Access Dvce: Yes Kidney Stones: No Musculoskeletal: No Neurologic: No Reproductive: No Renal Failure: Yes (IS ON DIALYSIS) Schizophrenia: Yes Sleep Apnea: No Thyroid Disease: No ?: Not Menopausal: Yes : 4 Para: 3 : 1 Past Surgical History Arteriovenous Shunt: Yes Body Medical Devices: A/V SHUNT- LEFT CHEST Section: Yes Gynecologic Surgery: Yes ( X 3 - ) Other Surgery: Yes (cyst ovary drained/ AV- SHUNT- LEFT CHEST-) Social History Alcohol Use: No Tobacco Use: Yes (1/2ppd) Substance Use: No Allergies-Medications (Allergen,Severity, Reaction): Coded Allergies: No Known Allergies (Unverified , 12/01/16) Reported Meds & Prescriptions Reported Meds & Active Scripts Active Trazodone (Trazodone HCl) 50 Mg Tab 100 Mg PO HS 30 Days Latuda (Lurasidone) 20 Mg Tab 20 Mg PO DAILY Lexapro (Escitalopram Oxalate) 10 Mg Tab 20 Mg PO DAILY Fibercon (Calcium Polycarbophil) 625 Mg Tab 1,250 Mg PO Q12HR PRN Polyethylene Glycol 3350 Powder (Polyethylene Glycol) 17 Gm Pow 17 Gm PO DAILY 14 Days Katalina-Colace (Sennosides-Docusate Sodium) 8.6-50 Mg Tab 1 Tab PO BID Oxygen tank (Oxygen) 1 Ea Tank 2 Liter JOSIAH.CANULA CONTINUOUS Oxygen Concentrator Portable Gaseous 2 L/min via Nasal Cannula Continuous For 99 months Trazodone (Trazodone HCl) 50 Mg Tab 75 Mg PO HS Reported Allopurinol 300 Mg Tab 300 Mg PO DAILY Albuterol Neb (Albuterol Sulfate) 2.5 Mg/0.5 Ml Neb 2.5 Mg NEB Q6HR NEB Note: The Albuterol Sulfate Inhalation Solution is concentrated and must be diluted. Read complete instructions carefully before using. Hydroxyzine HCl 10 Mg Tab 10 Mg PO BID Ativan (Lorazepam) 1 Mg Tab 1 Mg PO DAILY PRN Auryxia (Ferric Citrate) 210 Mg Tab 210 Mg PO 2-3 TIMES A DAY Take with meals 2-3 times a day Atorvastatin (Atorvastatin Calcium) 20 Mg Tab 20 Mg PO HS Reglan (Metoclopramide HCl) 5 Mg Tab 5 Mg PO TIDAC Review of Systems Except as stated in HPI: all other systems reviewed are Neg General / Constitutional: Positive: Chills, Other (diaphoretic, clammy) HENT: Positive: Lightheadedness Cardiovascular: Positive: Dyspnea on exertion, No: Chest Pain or Discomfort Respiratory: Positive: Cough, Shortness of Breath, Wheezing, Orthopnea, Pleuritic Pain Gastrointestinal: Positive: Nausea, Vomiting, Diarrhea, Abdominal Pain Genitourinary: No: Dysuria Musculoskeletal: Positive: Myalgias Neurologic: Positive: Weakness, Dizziness Physical Exam Narrative GENERAL: Well-developed, chronically ill-appearing female. Appears older than stated age. Appears uncomfortable, in no acute distress. SKIN: Clammy. HEAD: Atraumatic. Normocephalic. EYES: Pupils equal and round. No scleral icterus. No injection or drainage. ENT: No nasal bleeding or discharge. Mucous membranes pink and moist. NECK: Trachea midline. No JVD. CARDIOVASCULAR: Regular rate and rhythm. 3/6 systolic murmur. AV fistula in left anterior chest wall. Positive thrill, positive bruit RESPIRATORY: Tachypneic, diaphragmatic reading, coarse breath sounds noted bilateral lower lung obrien. Expiratory wheezing throughout. GASTROINTESTINAL: Abdomen soft, non-tender, nondistended. Hepatic and splenic margins not palpable. Positive bowel sounds, no rebound, no guarding MUSCULOSKELETAL: Extremities without clubbing, cyanosis, or edema. No obvious deformities. NEUROLOGICAL: Awake and alert. No obvious cranial nerve deficits. Motor grossly within normal limits. Five out of 5 muscle strength in the arms and legs. Normal speech. PSYCHIATRIC: Appropriate mood and affect; insight and judgment normal. Data Data Last Documented VS Vital Signs Date Time Temp Pulse Resp B/P (MAP) Pulse Ox O2 Delivery O2 Flow Rate FiO2 04/04/17 22:31 186/78 (114) 04/04/17 22:29 79 24 95 Nasal Cannula 2.00 04/04/17 21:11 98.3 Orders Orders Complete Blood Count With Diff (04/04/17 21:16) Comprehensive Metabolic Panel (04/04/17 21:16) B-Type Natriuretic Peptide (04/04/17 21:16) Magnesium (Mg) (04/04/17 21:16) Arterial Blood Gas (Abg) (04/04/17 21:16) Urinalysis - C+S If Indicated (04/04/17 21:16) Influenzae A/B Antigen (04/04/17 21:16) Blood Culture (04/04/17 21:16) Iv Access Insert/Monitor (04/04/17 21:16) Ecg Monitoring (04/04/17 21:16) Oximetry (04/04/17 21:16) Oxygen Administration (04/04/17 21:16) Chest, Single Ap (04/04/17 21:16) Sodium Chloride 0.9% Flush (Ns Flush) (04/04/17 21:30) Methylprednisolone So Succ Inj (Solumedr (04/04/17 21:30) Albuterol-Ipratropium Neb (Duoneb Neb) (04/04/17 21:30) Hydralazine Inj (Apresoline Inj) (04/04/17 21:30) Hydrocodone-Homatropine Liq (Hycodan Liq (04/04/17 22:15) Furosemide Inj (Lasix Inj) (04/04/17 22:45) Electrocardiogram (04/04/17 ) Admit Order (Ed Use Only) (04/04/17 22:49) Labs Laboratory Tests Test 04/04/17 21:20 04/04/17 22:06 White Blood Count 6.9 TH/MM3 Red Blood Count 3.79 MIL/MM3 Hemoglobin 10.8 GM/DL Hematocrit 33.0 % Mean Corpuscular Volume 87.2 FL Mean Corpuscular Hemoglobin 28.4 PG Mean Corpuscular Hemoglobin Concent 32.5 % Red Cell Distribution Width 16.5 % Platelet Count 169 TH/MM3 Mean Platelet Volume 8.6 FL Neutrophils (%) (Auto) 70.4 % Lymphocytes (%) (Auto) 20.8 % Monocytes (%) (Auto) 7.5 % Eosinophils (%) (Auto) 0.7 % Basophils (%) (Auto) 0.6 % Neutrophils # (Auto) 4.8 TH/MM3 Lymphocytes # (Auto) 1.4 TH/MM3 Monocytes # (Auto) 0.5 TH/MM3 Eosinophils # (Auto) 0.0 TH/MM3 Basophils # (Auto) 0.0 TH/MM3 CBC Comment DIFF FINAL Differential Comment Blood Urea Nitrogen 43 MG/DL Creatinine 5.11 MG/DL Random Glucose 122 MG/DL Total Protein 7.9 GM/DL Albumin 3.6 GM/DL Calcium Level 8.3 MG/DL Magnesium Level 2.3 MG/DL Alkaline Phosphatase 237 U/L Aspartate Amino Transf (AST/SGOT) 47 U/L Alanine Aminotransferase (ALT/SGPT) 49 U/L Total Bilirubin 0.7 MG/DL Sodium Level 127 MEQ/L Potassium Level 3.9 MEQ/L Chloride Level 90 MEQ/L Carbon Dioxide Level 26.1 MEQ/L Anion Gap 11 MEQ/L Estimat Glomerular Filtration Rate 9 ML/MIN Total Creatine Kinase 67 U/L Troponin I LESS THAN 0.02 NG/ML B-Type Natriuretic Peptide 2673 PG/ML Blood Gas Puncture Site RT RADIAL Blood Gas Patient Temperature 98.6 Blood Gas HCO3 25 mmol/L Blood Gas Base Excess 0.7 mmol/L Blood Gas Oxygen Saturation 90 % Arterial Blood pH 7.42 Arterial Blood Partial Pressure CO2 39 mmHg Arterial Blood Partial Pressure O2 65 mmHG Arterial Blood Oxygen Content 13.3 Vol % Arterial Blood Carboxyhemoglobin 2.6 % Arterial Blood Methemoglobin 0.5 % Blood Gas Hemoglobin 10.4 G/DL Oxygen Delivery Device NASAL CANNULA Blood Gas Liter Flow 4 L/M [facility] Medical Decision Making Medical Screen Exam Complete: Yes Emergency Medical Condition: Yes Medical Record Reviewed: Yes Interpretation(s) Laboratory Tests Test 04/04/17 21:20 04/04/17 22:06 White Blood Count 6.9 TH/MM3 Red Blood Count 3.79 MIL/MM3 Hemoglobin 10.8 GM/DL Hematocrit 33.0 % Mean Corpuscular Volume 87.2 FL Mean Corpuscular Hemoglobin 28.4 PG Mean Corpuscular Hemoglobin Concent 32.5 % Red Cell Distribution Width 16.5 % Platelet Count 169 TH/MM3 Mean Platelet Volume 8.6 FL Neutrophils (%) (Auto) 70.4 % Lymphocytes (%) (Auto) 20.8 % Monocytes (%) (Auto) 7.5 % Eosinophils (%) (Auto) 0.7 % Basophils (%) (Auto) 0.6 % Neutrophils # (Auto) 4.8 TH/MM3 Lymphocytes # (Auto) 1.4 TH/MM3 Monocytes # (Auto) 0.5 TH/MM3 Eosinophils # (Auto) 0.0 TH/MM3 Basophils # (Auto) 0.0 TH/MM3 CBC Comment DIFF FINAL Differential Comment Blood Urea Nitrogen 43 MG/DL Creatinine 5.11 MG/DL Random Glucose 122 MG/DL Total Protein 7.9 GM/DL Albumin 3.6 GM/DL Calcium Level 8.3 MG/DL Magnesium Level 2.3 MG/DL Alkaline Phosphatase 237 U/L Aspartate Amino Transf (AST/SGOT) 47 U/L Alanine Aminotransferase (ALT/SGPT) 49 U/L Total Bilirubin 0.7 MG/DL Sodium Level 127 MEQ/L Potassium Level 3.9 MEQ/L Chloride Level 90 MEQ/L Carbon Dioxide Level 26.1 MEQ/L Anion Gap 11 MEQ/L Estimat Glomerular Filtration Rate 9 ML/MIN B-Type Natriuretic Peptide 2673 PG/ML Blood Gas Puncture Site RT RADIAL Blood Gas Patient Temperature 98.6 Blood Gas HCO3 25 mmol/L Blood Gas Base Excess 0.7 mmol/L Blood Gas Oxygen Saturation 90 % Arterial Blood pH 7.42 Arterial Blood Partial Pressure CO2 39 mmHg Arterial Blood Partial Pressure O2 65 mmHG Arterial Blood Oxygen Content 13.3 Vol % Arterial Blood Carboxyhemoglobin 2.6 % Arterial Blood Methemoglobin 0.5 % Blood Gas Hemoglobin 10.4 G/DL Oxygen Delivery Device NASAL CANNULA Blood Gas Liter Flow 4 L/M Vital Signs Date Time Temp Pulse Resp B/P (MAP) Pulse Ox O2 Delivery O2 Flow Rate FiO2 9/24/17 21:19 98 Nasal Cannula 2.00 04/04/17 21:15 96 Nasal Cannula 2.00 04/04/17 21:11 98.3 78 24 225/93 (137) 94 Differential Diagnosis COPD exacerbation versus pneumonia versus PE versus other Narrative Course Patient is a 51-year-old female that presented to the emergency department for evaluation of shortness of breath, generalized weakness, nausea and vomiting. Patient was hypertensive on arrival, he was also coughing significantly. Labs and imaging were ordered and pending. Patient placed on 2 L of oxygen via nasal cannula. Hydralazine was ordered to address blood pressure. CBC with no acute findings ABG is normal Chemistry with a sodium of 127, BUN and creatinine of 43/5.11. This is an expected finding is patient is due for hemodialysis tomorrow. Patient was given DuoNeb 3 as well as IV Solu-Medrol. She was also given Hycodan for her cough. She was reassessed and is resting comfortably. She continues to require oxygen. Chest x-ray shows pulmonary infiltrate, right effusion, possible CHF. BNP 2673, patient was given Lasix 40 mg IV 1 dose. Patient had an echocardiogram done in October 2016 with an EF of 60%. There was moderate to severe aortic valve regurgitation and mild tricuspid valve regurgitation. I do not see any previous history of congestive heart failure. Patient was admitted discussed with Dr. Guan my attending physician, as well as Dr. Amado, the accepting physician. Admit orders place. Patient advised on plan of care. Sepsis Criteria SIRS Criteria (2 or more): RR > 20 or PaCO2 < 32 Diagnosis Primary Impression: CHF (congestive heart failure) Qualified Codes: I50.9 - Heart failure, unspecified Additional Impressions: ESRD (end stage renal disease) on dialysis Hypertension Qualified Codes: I10 - Essential (primary) hypertension Hyponatremia Hypoxia Admitting Information Admitting Physician Requests: Admit Condition: Stable Heather Candelaria C[employer]ER Apr 04, 2017 21:59
[2017-04-04 22:13] LABS: BLOOD GAS BASE EXCESS 0.7 mmol/L (-2-2); BLOOD GAS CARBOXYHEMOGLOBIN 2.6 % (0-4); BLOOD GAS HCO3 25 mmol/L (22-26); BLOOD GAS METHEMOGLOBIN 0.5 % (0-2); BLOOD GAS O2 HGB SATURATION 90 % (90-100); BLOOD GAS OXYGEN CONTENT 13.3 Vol % (12.0-20.0); BLOOD GAS PCO2 39 mmHg (38-42); BLOOD GAS PO2 65 mmHG (61-120); BLOOD GAS TOTAL HGB 10.4 G/DL (12.0-16.0); CRITICAL VALUE NO; DRAW SITE RT RADIAL; LITER FLOW 4 L/M; NUMBER OF ARTERIAL PUNCTURES 1; OXYGEN DEVICE NASAL CANNULA; STAT YES; TEMP CORR TO 98.6; ULNAR PULSE PRESENT
[2017-04-04 22:15] LABS: ALT (GPT) 49 U/L (10-53); ANION GAP 11 MEQ/L (5-15); AST (GOT) 47 U/L (15-37); BICARBONATE 26.1 MEQ/L (21.0-32.0); BLOOD UREA NITROGEN 43 MG/DL (7-18); CHLORIDE 90 MEQ/L (98-107); GLOMERULAR FILTRATION RATE 9 ML/MIN (>89); MAGNESIUM 2.3 MG/DL (1.5-2.5); POTASSIUM 3.9 MEQ/L (3.5-5.1); SODIUM (NA) 127 MEQ/L (136-145)
[2017-04-04] MEDS ORDERED: HYDROcodone 5 MG/HOMATROPINE 1.5 MG SYRUP 5 ML CUP PO ONE (22:15)
[2017-04-04 22:18] LABS: ALKALINE PHOSPHATASE 237 U/L (45-117); TOTAL BILIRUBIN ADULT 0.7 MG/DL (0.2-1.0)
[2017-04-04 22:29] VITALS: BP 205/92; PULSE 79; RESP 24; O2SAT 95
[2017-04-04 22:31] VITALS: BP 186/78
--- NOTE | 2017-04-04 22:31 | RADRPT ---
EXAM DATE/TIME: 04/04/2017 21:32 [facility] COMPARISON: CHEST SINGLE AP, December 04, 2016, 7:21. INDICATIONS : Short of breath. MEDICAL HISTORY : None. SURGICAL HISTORY : None. ENCOUNTER: Initial ACUITY: 1 day PAIN SCORE: 0/10 LOCATION: Bilateral chest FINDINGS: A. single AP semierect view of the chest was obtained and again demonstrates mild to moderate cardiom egaly. Hazy opacity is again noted in both lung bases and perihilar regions without significant morris e. The right costophrenic angle is blunted. The bony thorax remains intact. There are multiple overly ing electrocardiogram leads. CONCLUSION: No significant change. Pulmonary infiltrates and apparent right effusion. The finding s could indicate congestive heart failure. Bola Faustin MD on April 04, 2017 at 22:29 Board Certified Radiologist. This report was verified electronically.
[2017-04-04] MEDS: RESP: ALBUTEROL 2.5 MG/IPRATROPIUM 0.5 MG NEB (SCH) INH (22:32)
[2017-04-04] MEDS ORDERED: FUROSEMIDE 40 MG/4 ML VIAL IV PUSH ONE (22:45)
[2017-04-04] MEDS ORDERED: BISACODYL 10 MG SUPP RECTAL PRN (23:00)
[2017-04-04] MEDS ORDERED: SENNOSIDES 8.6 MG TAB PO PRN (23:00)
[2017-04-04] MEDS ORDERED: LACTULOSE SYRUP 20 GM/30 ML CUP PO PRN (23:00)
[2017-04-04] MEDS ORDERED: ONDANSETRON HCL 4 MG/2 ML VIAL IVP PRN (23:00)
[2017-04-04] MEDS ORDERED: FERRIC CITRATE 210 MG PO SCH (23:00)
[2017-04-04] MEDS ORDERED: ACETAMINOPHEN 325 MG TAB PO PRN (23:00)
[2017-04-04] MEDS ORDERED: LORazepam 1 MG TAB PO PRN (23:00)
[2017-04-04] MEDS ORDERED: SODIUM CHLORIDE 0.9% FLUSH 10 ML FLUSH IV FLUSH PRN (23:00)
[2017-04-04] MEDS ORDERED: MAGNESIUM HYDROXIDE SUSP 30 ML CUP PO PRN (23:00)
[2017-04-04] MEDS ORDERED: NALOXONE HCL 0.4 MG/ML AMP IV PUSH PRN (23:00)
[2017-04-04] MEDS ORDERED: cloNIDine HCL 0.1 MG TAB PO PRN (23:15)
[2017-04-04] MEDS ORDERED: hydrALAZINE HCL 20 MG/ML VIAL IV PRN (23:15)
--- NOTE | 2017-04-04 23:19 | HHI.HP ---
[facility] No Primary Care Physician Admission Diagnosis CHF, ESRD, HYPONATREMIA, HYPOXIA Diagnoses: Chief Complaint: Shortness of breath, cough, nausea and vomiting Travel History International Travel<30 Days: No Contact w/Intl Traveler <30 Da: No Traveled to Known Affected Are: No History of Present Illness 51-year-old female with a medical history significant for COPD, end-stage renal disease on hemodialysis, COPD, untreated hypertension presents to the emergency room with multiple complaints including shortness of breath, nausea, vomiting, and fatigue. The patient reports her symptoms started 3 days ago. She is a very poor historian and could not elaborate. She denies any fever or chills. She reports that she has been coughing. She reports compliance with dialysis. She is due for dialysis tomorrow. Review of Systems Constitutional: COMPLAINS OF: Fatigue, DENIES: Fever, Chills Respiratory: COMPLAINS OF: Cough, Shortness of breath Cardiovascular: COMPLAINS OF: PND, DENIES: Chest pain Except as stated in HPI: all other systems reviewed are Neg Past Family Social History Past Medical History End-stage renal disease on hemodialysis COPD Hyperlipidemia Hypertension, not taking medications due to noncompliance. Past Surgical History Left chest AV fistula X 3 Ovarian cyst drainage Reported Medications Reported Meds & Active Scripts Active Trazodone (Trazodone HCl) 50 Mg Tab 100 Mg PO HS 30 Days Latuda (Lurasidone) 20 Mg Tab 20 Mg PO DAILY Lexapro (Escitalopram Oxalate) 10 Mg Tab 20 Mg PO DAILY Fibercon (Calcium Polycarbophil) 625 Mg Tab 1,250 Mg PO Q12HR PRN Polyethylene Glycol 3350 Powder (Polyethylene Glycol) 17 Gm Pow 17 Gm PO DAILY 14 Days Katalina-Colace (Sennosides-Docusate Sodium) 8.6-50 Mg Tab 1 Tab PO BID Oxygen tank (Oxygen) 1 Ea Tank 2 Liter JOSIAH.CANULA CONTINUOUS Oxygen Concentrator Portable Gaseous 2 L/min via Nasal Cannula Continuous For 99 months Trazodone (Trazodone HCl) 50 Mg Tab 75 Mg PO HS Reported Allopurinol 300 Mg Tab 300 Mg PO DAILY Albuterol Neb (Albuterol Sulfate) 2.5 Mg/0.5 Ml Neb 2.5 Mg NEB Q6HR NEB Note: The Albuterol Sulfate Inhalation Solution is concentrated and must be diluted. Read complete instructions carefully before using. Hydroxyzine HCl 10 Mg Tab 10 Mg PO BID Ativan (Lorazepam) 1 Mg Tab 1 Mg PO DAILY PRN Auryxia (Ferric Citrate) 210 Mg Tab 210 Mg PO 2-3 TIMES A DAY Take with meals 2-3 times a day Atorvastatin (Atorvastatin Calcium) 20 Mg Tab 20 Mg PO HS Reglan (Metoclopramide HCl) 5 Mg Tab 5 Mg PO TIDAC Allergies: Coded Allergies: No Known Allergies (Unverified , 12/01/16) Family History Reviewed and is noncontributory. Social History Patient is a lifelong smoker. She reports she quit smoking a couple months ago. Denies current alcohol or illicit drug use. Physical Exam Vital Signs Vital Signs Date Time Temp Pulse Resp B/P (MAP) Pulse Ox O2 Delivery O2 Flow Rate FiO2 04/04/17 22:31 186/78 (114) 04/04/17 22:29 79 24 205/92 (129) 95 Nasal Cannula 2.00 04/04/17 21:19 98 Nasal Cannula 2.00 04/04/17 21:15 96 Nasal Cannula 2.00 04/04/17 21:11 98.3 78 24 225/93 (137) 94 Physical Exam GENERAL: Chronically ill appearing female. SKIN: Cool and dry. HEAD: Atraumatic. Normocephalic. No temporal or scalp tenderness. EYES: Pupils equal round and reactive. Extraocular motions intact. No scleral icterus. No injection or drainage. ENT: Nose without bleeding, purulent drainage or septal hematoma. Throat without erythema, tonsillar hypertrophy or exudate. Uvula midline. Airway patent. NECK: Trachea midline. No JVD or lymphadenopathy. Supple, nontender, no meningeal signs. CARDIOVASCULAR: Normal rate. There is a harsh 4/6 ROBEL best heard over the left sternal border. RESPIRATORY: Portable air movement. Markedly diminished breath sounds at the bases. No wheezing. GASTROINTESTINAL: Abdomen soft, non-tender, nondistended. No hepato-splenomegaly , or palpable masses. No guarding. MUSCULOSKELETAL: Extremities without clubbing, cyanosis, or edema. No joint tenderness, effusion, or edema noted. No calf tenderness. Negative Homans sign bilaterally. NEUROLOGICAL: Awake and alert. Cranial nerves II through XII intact. Motor and sensory grossly within normal limits. Five out of 5 muscle strength in all muscle groups. Normal speech. Laboratory Laboratory Tests Test 04/04/17 21:20 04/04/17 22:06 White Blood Count 6.9 Red Blood Count 3.79 Hemoglobin 10.8 Hematocrit 33.0 Mean Corpuscular Volume 87.2 Mean Corpuscular Hemoglobin 28.4 Mean Corpuscular Hemoglobin Concent 32.5 Red Cell Distribution Width 16.5 Platelet Count 169 Mean Platelet Volume 8.6 Neutrophils (%) (Auto) 70.4 Lymphocytes (%) (Auto) 20.8 Monocytes (%) (Auto) 7.5 Eosinophils (%) (Auto) 0.7 Basophils (%) (Auto) 0.6 Neutrophils # (Auto) 4.8 Lymphocytes # (Auto) 1.4 Monocytes # (Auto) 0.5 Eosinophils # (Auto) 0.0 Basophils # (Auto) 0.0 CBC Comment DIFF FINAL Differential Comment Blood Urea Nitrogen 43 Creatinine 5.11 Random Glucose 122 Total Protein 7.9 Albumin 3.6 Calcium Level 8.3 Magnesium Level 2.3 Alkaline Phosphatase 237 Aspartate Amino Transf (AST/SGOT) 47 Alanine Aminotransferase (ALT/SGPT) 49 Total Bilirubin 0.7 Sodium Level 127 Potassium Level 3.9 Chloride Level 90 Carbon Dioxide Level 26.1 Anion Gap 11 Estimat Glomerular Filtration Rate 9 B-Type Natriuretic Peptide 2673 Blood Gas Puncture Site RT RADIAL Blood Gas Patient Temperature 98.6 Blood Gas HCO3 25 Blood Gas Base Excess 0.7 Blood Gas Oxygen Saturation 90 Arterial Blood pH 7.42 Arterial Blood Partial Pressure CO2 39 Arterial Blood Partial Pressure O2 65 Arterial Blood Oxygen Content 13.3 Arterial Blood Carboxyhemoglobin 2.6 Arterial Blood Methemoglobin 0.5 Blood Gas Hemoglobin 10.4 Oxygen Delivery Device NASAL CANNULA Blood Gas Liter Flow 4 Date/Time Source Procedure Growth Status 04/04/17 21:30 Blood Peripheral Aerobic Blood Culture Pending Received 04/04/17 21:30 Blood Peripheral Anaerobic Blood Culture Pending Received 04/04/17 21:20 Nasal Washing Influenza Types A,B Antigen (DAVID) - Final NEGATIVE FOR FLU A AND B ANTIGEN.... Complete Result Diagram: 04/04/17211904/04/172119 Imaging Last Impressions Chest X-Ray 04/04/172115 Signed Impressions: Service Date/Time: Tuesday, April 04, 2017 21:32 - CONCLUSION: No significant change. Pulmonary infiltrates and apparent right effusion. The findings could indicate congestive heart failure. MD Dima Dupree VTE Risk Assessment [place] VTE Risk Assessment: Mod/High Risk (score >= 2) Caprini Risk Assessment Model Point Value = 1 Point Value = 2 Point Value = 3 Point Value = 5 Age 41-60 Minor surgery BMI > 25 kg/m2 Swollen legs Varicose veins or History of unexplained or recurrent spontaneous Oral contraceptives or hormone replacement Sepsis (< 1 month) Serious lung disease, including pneumonia (< 1 month) Abnormal pulmonary function Acute myocardial infarction Congestive heart failure (< 1 month) History of inflammatory bowel disease Medical patient at bed rest Age 61-74 Arthroscopic surgery Major open surgery (> 45 min) Laparoscopic surgery (> 45 min) Malignancy Confined to bed (> 72 hours) Immobilizing plaster cast Central venous access Age >= 75 History of VTE Family history of VTE Factor V Leiden Prothrombin [id number] Lupus anticoagulant Anticardiolipin antibodies Elevated serum homocysteine Heparin-induced thrombocytopenia Other congenital or acquired thrombophilia Stroke (< 1 month) Elective arthroplasty Hip, pelvis, or leg fracture Acute spinal cord injury (< 1 month) Prophylaxis Regimen Total Risk Factor Score Risk Level Prophylaxis Regimen 0-1 Low Early ambulation 2 Moderate Order ONE of the following: *Sequential Compression Device (SCD) *Heparin 5000 units SQ BID 3-4 Higher Order ONE of the following medications: *Heparin 5000 units SQ TID *Enoxaparin/Lovenox 40 mg SQ daily (WT < 150 kg, CrCl > 30 mL/min) *Enoxaparin/Lovenox 30 mg SQ daily (WT < 150 kg, CrCl > 10-29 mL/min) *Enoxaparin/Lovenox 30 mg SQ BID (WT < 150 kg, CrCl > 30 mL/min) AND/OR *Sequential Compression Device (SCD) 5 or more Highest Order ONE of the following medications: *Heparin 5000 units SQ TID (Preferred with Epidurals) *Enoxaparin/Lovenox 40 mg SQ daily (WT < 150 kg, CrCl > 30 mL/min) *Enoxaparin/Lovenox 30 mg SQ daily (WT < 150 kg, CrCl > 10-29 mL/min) *Enoxaparin/Lovenox 30 mg SQ BID (WT < 150 kg, CrCl > 30 mL/min) AND *Sequential Compression Device (SCD) Assessment and Plan Problem List: (1) CHF (congestive heart failure) ICD Code: I50.9 - Heart failure, unspecified Status: Acute (2) ESRD (end stage renal disease) on dialysis ICD Code: N18.6 - End stage renal disease; Z99.2 - Dependence on renal dialysis Status: Acute (3) Bipolar disorder ICD Code: F31.9 - Bipolar disorder, unspecified Status: Acute (4) Hypertension ICD Code: I10 - Essential (primary) hypertension Status: Chronic Assessment and Plan 51-year-old female with end-stage renal disease on dialysis, bipolar disorder, on controlled hypertension presents with worsening shortness of breath, fatigue , nausea. Evidence of congestive heart failure. Congestive heart failure: No known history of CHF per the patient. LVEF on echocardiogram in October of 2016 preserved at 60%. Moderate to severe aortic valve regurgitation and there was mild tricuspid valve regurgitation. - Patient to have dialysis tomorrow. - Blood pressure uncontrolled, untreated. Patient has not been taking medications. Hypertensive heart disease may be contributing to heart failure. - Start antihypertensives. Scheduled repeat and Coreg. - Obtain 2-D echocardiogram. Check cardiac enzyme and EKG. - Supplemental oxygen Uncontrolled hypertension: - Start Coreg and amlodipine - Continue to monitor. Hydralazine or clonidine as needed End-stage renal disease on hemodialysis: - Nephrology consulted. Patient is due for hemodialysis tomorrow. Bipolar disorder: Continue home medications. Continue the rest of the patient's home medication for her chronic conditions as indicated. GI prophylaxis: Stool softener PRN constipation. DVT PPx: Heparin Discussed Condition With ER staff. Physician Certification 2 Midnight Certification Type: Admission for Inpatient Services Order for Inpatient Services The services are ordered in accordance with Medicare regulations or non- Medicare payer requirements, as applicable. In the case of services not specified as inpatient-only, they are appropriately provided as inpatient services in accordance with the 2-midnight benchmark. Estimated LOS (days): 2 days is the estimated time the patient will need to remain in the hospital, assuming treatment plan goals are met and no additional complications. Post-Hospital Plan: Home Problem Qualifiers (1) CHF (congestive heart failure): Qualified Codes: I50.9 - Heart failure, unspecified (2) Hypertension: Qualified Codes: I10 - Essential (primary) hypertension Leslie Amado MD Apr 04, 2017 23:19
[2017-04-04 23:44] LABS: CREATINE KINASE 67 U/L (26-192)
[2017-04-04 23:49] LABS: BACTERIA, URINE RARE /hpf; BLOOD, URINE TRACE (NEG); COMMENT (UR) CULT NOT INDICATED; CULTURE IF INDICATED CULT NOT INDICATED; GLUCOSE,URINE TRACE mg/dL (NEG); KETONE, URINE NEG (NEG); NITRITE,URINE NEG (NEG); SQUAMOUS EPITHELIAL CELL URINE 5 /hpf (0-5); URINE COLOR LIGHT-YELLOW (YELLW/STRAW)
[2017-04-05] VITALS (10 sets, daily range): BP systolic 125–190; BP diastolic 67–88; PULSE 74–85; RESP 18–20; TEMP 97.4–98.2; O2SAT 91–99
[2017-04-05] MEDS: HEPARIN SODIUM - SQ 10,000 UNITS/ML VIAL SQ SCH ×3 (01:06→21:52)
[2017-04-05] MEDS: RESP: ALBUTEROL CONC 2.5 MG/0.5 ML NEB NEB SCH ×4 (03:27→21:45)
[2017-04-05] MEDS ORDERED: SENS60TA PO (03:47)
[2017-04-05] MEDS ORDERED: LOSA50TA PO (03:47)
[2017-04-05] MEDS ORDERED: GABA100C4 PO (03:47)
[2017-04-05] MEDS ORDERED: SEVEL800 PO (03:49)
[2017-04-05] MEDS ORDERED: B-CO1CAP9 PO (03:49)
[2017-04-05] MEDS ORDERED: PRIL20TA2 (03:49)
[2017-04-05 07:25] LABS: AUTOMATED NEUTROPHIL # 3.5 TH/MM3 (1.8-7.7); BASOPHIL % 0.2 % (0.0-2.0); HEMATOCRIT 30.1 % (35.0-46.0); HEMO FLAGS DIFF FINAL; LYMPH % 7.4 % (9.0-44.0); LYMPHOCYTE # 0.3 TH/MM3 (1.0-4.8); MEAN CELL VOLUME 87.9 FL (80.0-100.0); MEAN CORPUSCULAR HEMOGLOBIN 28.8 PG (27.0-34.0); MEAN CORPUSCULAR HGB CONC 32.7 % (32.0-36.0); MONO % 1.2 % (0.0-8.0); NEUT % 91.2 % (16.0-70.0); PLATELET COUNT 123 TH/MM3 (150-450); RED BLOOD COUNT 3.42 MIL/MM3 (4.00-5.30); RED CELL DISTRIBUTION WIDTH 16.7 % (11.6-17.2); WHITE BLOOD COUNT 3.8 TH/MM3 (4.0-11.0)
[2017-04-05 07:41] LABS: BICARBONATE 24.7 MEQ/L (21.0-32.0); POTASSIUM 4.4 MEQ/L (3.5-5.1)
[2017-04-05] MEDS: METOCLOPRAMIDE HCL 10 MG TAB PO SCH ×3 (08:00→17:00)
[2017-04-05] MEDS: ALLOPURINOL 100 MG TAB PO SCH (08:43)
[2017-04-05] MEDS: SODIUM CHLORIDE 0.9% FLUSH 10 ML FLUSH IV FLUSH SCH ×2 (08:43→21:31)
[2017-04-05] MEDS: LURASIDONE 40 MG TAB PO SCH (08:43)
[2017-04-05] MEDS: CARVEDILOL 3.125 MG TAB PO SCH ×2 (08:43→21:30)
[2017-04-05] MEDS: hydrOXYzine HCL 10 MG TAB PO SCH ×2 (08:43→21:30)
[2017-04-05] MEDS: ESCITALOPRAM OXALATE 20 MG TAB PO SCH (08:48)
[2017-04-05] MEDS ORDERED: FERRIC CITRATE 1 GM PO SCH (09:00)
[2017-04-05] MEDS ORDERED: ALLOPURINOL 300 MG TAB PO SCH (09:00)
[2017-04-05] MEDS ORDERED: SODIUM CHLOR 0.9% 1000 ML INJ 1,000 ML OTHER PRN (09:40)
[2017-04-05] MEDS ORDERED: SODIUM CHLOR 0.9% 1000 ML INJ 1,000 ML IV PRN (09:40)
[2017-04-05] MEDS ORDERED: MANNITOL 12.5 GM/50 ML VIAL IV PRN (09:45)
[2017-04-05] MEDS ORDERED: ONDANSETRON HCL 4 MG/2 ML VIAL IV PUSH PRN (09:45)
[2017-04-05] MEDS ORDERED: SODIUM CHLORIDE 0.9% FLUSH 10 ML FLUSH IV FLUSH PRN (09:45)
[2017-04-05] MEDS ORDERED: cloNIDine HCL 0.1 MG TAB PO PRN (09:45)
[2017-04-05] MEDS ORDERED: diphenhydrAMINE HCL 25 MG CAP PO PRN (09:45)
[2017-04-05] MEDS ORDERED: HEPARIN SODIUM - IV 10,000 UNITS/10 ML VIAL IV FLUSH PRN (09:45)
[2017-04-05] MEDS ORDERED: ALBUMIN HUMAN 25% 25 GM/100 ML BAGP IV PRN (09:45)
[2017-04-05] MEDS ORDERED: GENTAMICIN SULFATE (DIALYSIS USE ONLY) 20 MG/2 ML VIAL OTHER PRN (09:45)
[2017-04-05] MEDS ORDERED: EPOETIN ALFA 10,000 UNITS/ML VIAL IV PRN (09:45)
[2017-04-05] MEDS ORDERED: HEPARIN SODIUM - IV 10,000 UNITS/10 ML VIAL PRN (09:45)
[2017-04-05] MEDS ORDERED: NITROGLYCERIN 0.4 MG SL 25 TABS/BTL SL PRN (09:45)
--- NOTE | 2017-04-05 12:52 | HHI.PR ---
Subjective Remarks Cough or shortness of breathing Patient denies any shortness of breathing or cough. She has no complaints. She stated that she has been noncompliant and hasn't been to all her appointments for dialysis. Deny any increased salt intake. Objective Vitals Vital Signs Date Time Temp Pulse Resp B/P (MAP) Pulse Ox O2 Delivery O2 Flow Rate FiO2 04/05/17 08:01 99 21 04/05/17 08:00 97.4 85 20 182/76 (111) 91 04/05/17 08:00 83 04/05/17 04:00 98.0 74 20 176/77 (110) 93 04/05/17 03:33 95 Nasal Cannula 2.00 04/05/17 01:58 Nasal Cannula 2.00 04/05/17 01:11 77 04/05/17 00:09 98.1 77 20 187/88 (121) 95 04/04/17 22:31 186/78 (114) 04/04/17 22:29 79 24 205/92 (129) 95 Nasal Cannula 2.00 04/04/17 21:19 98 Nasal Cannula 2.00 04/04/17 21:15 96 Nasal Cannula 2.00 04/04/17 21:11 98.3 78 24 225/93 (137) 94 I/O 04/04/17 04/04/17 04/04/17 04/05/17 04/05/17 04/05/17 07:00 15:00 23:00 07:00 15:00 23:00 Intake Total 120 ml Balance 120 ml Intake Oral 120 ml # Voids 2 Result Diagram: 04/05/17 0645 04/05/1745 Objective Remarks GENERAL: in NAD CARDIOVASCULAR: Regular rate and rhythm without murmurs, gallops, or rubs. RESPIRATORY: Decreased right basilar breath sounds otherwise clear to auscultation. No accessory muscle use. GASTROINTESTINAL: Abdomen soft, non-tender, nondistended. MUSCULOSKELETAL: No cyanosis, or edema. Medications and IVs Current Medications Sodium Chloride (NS Flush) 2 ml UNSCH PRN IVF FLUSH AFTER USING IV ACCESS; Start 04/04/17 at 21:30; Stop 04/05/17 at 00:34; Status DC Methylprednisolone Sodium Succinate (SoluMEDROL INJ) 125 mg ONCE ONCE IV PUSH Last administered on 04/04/17t 21:38; Start 04/04/17 at 21:30; Stop 04/04/17 at 21:31; Status DC Albuterol/ Ipratropium (Duoneb Neb) 1 ampule Q15M INH Last administered on 04/04 22:32; Start 04/04/17 at 21:30; Stop 04/04/17 at 21:46; Status DC Hydralazine HCl (Apresoline Inj) 10 mg ONCE ONCE IV PUSH Last administered on 04/04/17 21:38; Start 04/04/17 at 21:30; Stop 04/04/17 at 21:31; Status DC Hydrocodone Bit/ Homatropine Methylb (Hycodan Liq) 5 ml NOW ONCE PO Last administered on 04/04/17 22:47; Start 04/04/17 at 22:15; Stop 04/04/17 at 22:16 ; Status DC Furosemide (Lasix Inj) 40 mg ONCE ONCE IV PUSH Last administered on 04/04/17 22:47; Start 04/04/17 at 22:45; Stop 04/04/17 at 22:46; Status DC Albuterol Sulfate (Albuterol Concentrated Neb) 2.5 mg Q6HR NEB NEB Last administered on 04/05/17 08:01; Start 04/05/17 at 04:00 Allopurinol (Zyloprim) 300 mg DAILY PO ; Start 04/05/17 at 09:00; Status Cancel Atorvastatin Calcium (Lipitor) 20 mg HS PO ; Start 04/05/17 at 21:00 Escitalopram Oxalate (Lexapro) 20 mg DAILY PO ; Start 04/05/17 at 09:00 Hydroxyzine HCl (Atarax) 10 mg BID PO Last administered on 04/05/17 08:43; Start 04/05/17 at 09:00 Lorazepam (Ativan) 1 mg DAILY PRN PO ANXIETY AND/OR AGITATION; Start 04/04/17 at 23:00 Lurasidone HCl (Latuda) 20 mg DAILY PO Last administered on 04/05/17 08:43; Start 04/05/17 at 09:00 Trazodone HCl (Desyrel) 100 mg HS PO ; Start 04/05/17 at 21:00 Non-Formulary Medication 210 mg 2-3 TIMES A DAY PO ; Start 04/04/17 at 23:00; Status Cancel Metoclopramide HCl (Reglan) 5 mg TIDAC PO ; Start 04/05/17 at 08:00 Sodium Chloride (NS Flush) 2 ml UNSCH PRN IV FLUSH FLUSH AFTER USING IV ACCESS ; Start 04/04/17 at 23:00 Sodium Chloride (NS Flush) 2 ml BID IV FLUSH Last administered on 04/05/17 08: 43; Start 04/05/17 at 09:00 Acetaminophen (Tylenol) 650 mg Q4H PRN PO TEMP > 100.4; Start 04/04/17 at 23:00 Ondansetron HCl (Zofran Inj) 4 mg Q6H PRN IVP NAUSEA OR VOMITING; Start at 23:00 Heparin Sodium (Porcine) (Heparin Inj) 5,000 units Q12H SQ Last administered on 04/05/17 12:19; Start 04/04/17 at 23:00 Naloxone HCl (Narcan Inj) 0.4 mg UNSCH PRN IV PUSH SEE LABEL COMMENTS; Start at 23:00 Magnesium Hydroxide (Milk Of Magnesia Liq) 30 ml Q12H PRN PO MILD - MODERATE CONSTIPATION; Start 04/04/17 at 23:00 Sennosides (Senokot) 17.2 mg Q12H PRN PO MODERATE - SEVERE CONSTIPATION; Start 04/04/17 at 23:00 Bisacodyl (Dulcolax Supp) 10 mg DAILY PRN RECTAL SEVERE CONSITIPATION; Start at 23:00 Lactulose (Lactulose Liq) 30 ml DAILY PRN PO SEVERE CONSITIPATION; Start at 23:00 Carvedilol (Coreg) 3.125 mg BID PO Last administered on 04/05/17 08:43; Start 04/05/17 at 09:00 Hydralazine HCl (Apresoline Inj) 10 mg Q6H PRN IV SBP> OR = 180, DBP> OR = 100 ; Start 04/04/17 at 23:15 Clonidine (Catapres) 0.1 mg Q6H PRN PO SBP> OR = 180, DBP> OR = 100; Start at 23:15 Allopurinol (Zyloprim) 200 mg DAILY PO Last administered on 04/05/17 08:43; Start 04/05/17 at 09:00 Patient Own Medication PT OWN MED: RITA... TID PO ; Start 04/04/17 at 09:00; Stop 04/05/17 at 00:32; Status DC Patient Own Medication PT OWN MED: RITA... TID PO ; Start 04/05/17 at 09:00; Status Future Hold Influenza Virus Vaccine (Flu (Quadrivalent) Vaccine Inj) 0.5 ml ONCE ONCE IM ; Start 04/06/17 at 10:00; Stop 04/06/17 at 10:01 Amlodipine Besylate (Norvasc) 10 mg DAILY PO Last administered on 04/05/17 08: 43; Start 04/05/17 at 09:00 Sodium Chloride 1,000 ml @ 0 mls/hr Q0M PRN OTHER For Prime & Rinse Back; Start 04/05/17 at 09:40 Heparin Sodium (Porcine) (Heparin Inj) 8,000 units UNSCH PRN IV FLUSH WITH DIALYSIS; Start 04/05/17 at 09:45 Sodium Chloride 1,000 ml @ 200 mls/hr Q5H PRN IV WITH DIALYSIS; Start 04/05/17 at 09:40 Sodium Chloride 1,000 ml @ 0 mls/hr Q0M PRN OTHER WITH DIALYSIS; Start at 09:40 Mannitol (Mannitol Inj) 12.5 gm UNSCH PRN IV WITH DIALYSIS; Start 04/05/17 at 09:45 Albumin Human (Albumin 25% Inj) 25 gm UNSCH PRN IV WITH DIALYSIS; Start at 09:45 Sodium Chloride (NS Flush) 5 ml UNSCH PRN IV FLUSH WITH DIALYSIS; Start at 09:45 Heparin Sodium (Porcine) (Heparin Inj) UNSCH PRN .XX WITH DIALYSIS; Start at 09:45 Gentamicin Sulfate (Gentamicin (Dialysis) Inj) 20 mg UNSCH PRN OTHER WITH DIALYSIS; Start 04/05/17 at 09:45 Ondansetron HCl (Zofran Inj) 4 mg UNSCH PRN IV PUSH WITH DIALYSIS; Start at 09:45 Acetaminophen (Tylenol) 650 mg UNSCH PRN PO for headach, pain, temp > 101F; Start 04/05/17 at 09:45 Diphenhydramine HCl (Benadryl) 25 mg UNSCH PRN PO for hives/itching/anaphylaxis ; Start 04/05/17 at 09:45 Nitroglycerin (Nitrostat Sl) 0.4 mg UNSCH PRN SL CHEST PAIN; Start 04/05/17 at 09:45 Clonidine (Catapres) 0.1 mg UNSCH PRN PO for BP > 180/100 X 2 readings; Start 04/05/17 at 09:45 Epoetin Mauri (Epogen Inj) 6,000 units UNSCH PRN IV WITH DIALYSIS; Start at 09:45 Gelatin (Gelfoam 12 Mm/7 Mm Top) 1 foam UNSCH PRN TOP SEE LABEL COMMENTS; Start 04/05/17 at 09:45 A/P Problem List: (1) CHF (congestive heart failure) ICD Code: I50.9 - Heart failure, unspecified Status: Acute (2) ESRD (end stage renal disease) on dialysis ICD Code: N18.6 - End stage renal disease; Z99.2 - Dependence on renal dialysis Status: Acute (3) Bipolar disorder ICD Code: F31.9 - Bipolar disorder, unspecified Status: Acute (4) Hypertension ICD Code: I10 - Essential (primary) hypertension Status: Chronic Assessment and Plan 51-year-old female with end-stage renal disease on dialysis, bipolar disorder, on controlled hypertension presents with worsening shortness of breath, fatigue , nausea. Evidence of congestive heart failure. Congestive heart failure: No known history of CHF per the patient. LVEF on echocardiogram in October of 2016 preserved at 60%. Moderate to severe aortic valve regurgitation and there was mild tricuspid valve regurgitation. Cardiac enzymes negative. -Most likely secondary to being volume overloaded. Questionable compliance with diet and medication. -Patient scheduled for dialysis today. -Pending echo. -Clinically doing well. Patient is off oxygen. Uncontrolled hypertension: - Continue with Coreg and amlodipine - Continue to monitor. Hydralazine or clonidine as needed End-stage renal disease on hemodialysis: - Nephrology consulted. Patient scheduled for hemodialysis today. Bipolar disorder: Continue home medications. Continue the rest of the patient's home medication for her chronic conditions as indicated. GI prophylaxis: Stool softener PRN constipation. DVT PPx: Heparin Discharge Planning Fluid needs to be removed during dialysis. Discharge to be determined by legal transcriber. Problem Qualifiers (1) CHF (congestive heart failure): Qualified Codes: I50.9 - Heart failure, unspecified (2) Hypertension: Qualified Codes: I10 - Essential (primary) hypertension Shana Leroy MD Apr 05, 2017 12:52
--- NOTE | 2017-04-05 14:00 | EKG ---
Date Performed: 04/04/2017 Time Performed: 22:54:16 PTAGE: 51 years EKG: Sinus rhythm PROLONGED QT INTERVAL ABNORMAL ECG Compared to prior tracing no significant change PREVIOUS TRACING : 11/01/2016 11.42 DOCTOR: Grgeor Martell Interpretating Date/Time 04/05/2017 13:59:07
--- NOTE | 2017-04-05 15:19 | ECHRPT ---
Indication: heart failure CONCLUSIONS Normal left ventricular size. Wall thickness is measured at the upper limits of normal. The left ventricular systolic function is normal with an estimated ejection fraction of 55%. Mild mitral valve regurgitation. Aortic valve sclerosis is present. Moderate aortic valve regurgitation. There is mild tricuspid valve regurgitation. There is estimated eshrqeur-al-jiigrt pulmonary hypertension present ( 69 mmHg). BP: / HR: Rhythm: Sinus MEASUREMENTS (Male / Female) Normal Values Technical Quality:Good 2D ECHO LV Diastolic Diameter PLAX 4.8 cm 4.2 - 5.9 / 3.9 - 5.3 cm LV Systolic Diameter PLAX 3.7 cm IVS Diastolic Thickness 1.0 cm 0.6 - 1.0 / 0.6 - 0.9 cm LVPW Diastolic Thickness 0.9 cm 0.6 - 1.0 / 0.6 - 0.9 cm LV Relative Wall Thickness 0.4 RV Internal Dim ED PLAX 1.9 cm LA Systolic Diameter LX 3.9 cm 3.0 - 4.0 / 2.7 - 3.8 cm DOPPLER AV Peak Velocity 246.0 cm/s AV Peak Gradient 24.2 mmHg AV Mean Gradient 11.0 mmHg AV Velocity Time Integral 60.7 cm AI Peak Velocity 476.0 cm/s AI Peak Gradient 90.6 mmHg AI Pressure Half Time 444.0 ms LVOT Peak Velocity 160.0 cm/s LVOT Peak Gradient 10.2 mmHg LVOT Velocity Time Integral 35.3 cm MR Peak Velocity 373.0 cm/s MR Peak Gradient 55.7 mmHg Mitral E Point Velocity 124.0 cm/s Mitral A Point Velocity 83.3 cm/s Mitral E to A Ratio 1.5 TR Peak Velocity 383.0 cm/s TR Peak Gradient 58.7 mmHg Right Atrial Pressure 10.0 mmHg Pulmonary Artery Systolic Pressu 68.7 mmHg Right Ventricular Systolic Press 68.7 mmHg FINDINGS LEFT VENTRICLE Normal left ventricular size. Wall thickness is measured at the upper limits of normal. The left ventricular systolic function is normal with an estimated ejection fraction of 55%. RIGHT VENTRICLE Normal right ventricular size and systolic function. LEFT ATRIUM The left atrial size is normal. RIGHT ATRIUM The right atrial size is normal. ATRIAL SEPTUM Normal atrial septal thickness without atrial level shunting by limited color doppler interrogation. AORTA The aortic root and proximal ascending aorta are normal in size on limited imaging. MITRAL VALVE Mild mitral valve regurgitation. AORTIC VALVE Aortic valve sclerosis is present. Moderate aortic valve regurgitation. TRICUSPID VALVE There is mild tricuspid valve regurgitation. There is estimated [id number] pulmonary hypertension present ( 69 mmHg). PULMONARY VALVE No pulmonary valve regurgitation or stenosis. VESSELS The inferior vena cava is normal in size. PERICARDIUM No pericardial effusion. Amina Juarez MD, FACC (Electronically Signed) Final Date:05 April 2017 15:17
[2017-04-05] MEDS: SODIUM CHLOR 0.9% 1000 ML INJ 1,000 ML OTHER PRN (16:10)
[2017-04-05] MEDS: GELATIN 12 MM/7 MM FOAM TOP PRN (16:10)
--- NOTE | 2017-04-05 16:42 | MB ---
cc: KYM SALAMANCA MD DATE OF CONSULTATION 04/05/2017 REASON FOR CONSULTATION End-stage renal disease on hemodialysis for management. HISTORY OF PRESENT ILLNESS This is a 51-year-old female with past medical history of hypertension, chronic obstructive pulmonary disease, end-stage renal disease on hemodialysis, hyperlipidemia, chronic anemia who was admitted with complaint of shortness of breath, cough, nausea and vomiting. I was called to see the patient for management of dialysis. The patient has been on hemodialysis Wednesday, Wednesday and Wednesday. The patient has been following with Dr. Vinson and getting dialysis in [place]. The patient came to the hospital mainly because of worsening shortness of breath and cough which is mainly dry and associated with nausea and vomiting. She does not have any abdominal pain. There is no history of diarrhea. Occasionally she gets this retrosternal chest pain but she does not have any chest pain right now. Her breathing has been improving since she is getting dialysis now and she denies any history of fever. She has an AV fistula in the left upper chest through which she is getting dialysis. The patient has had multiple admissions at [facility] in the last year or so and for different reasons. PAST MEDICAL HISTORY 1. Hypertension. 2. Hypertension. 3. Chronic anemia. 4. Chronic obstructive pulmonary disease. 5. End-stage renal disease on hemodialysis. PAST SURGICAL HISTORY 1. Left upper chest AV fistula. 2. section. 3. Ovarian cyst drainage. REVIEW OF SYSTEMS The patient has generalized weakness, feeling tired. She has worsening shortness of breath more with exertion. Occasionally gets retrosternal chest pain. Has cough which is mainly dry. There is no history of fever. No sore throat. Occasionally has nausea. There is n o vomiting now since she is admitted or abdominal pain. No history of diarrhea. SOCIAL HISTORY The patient has a history of smoking all of her life, stopped two months ago. There is no history of heavy alcoholism. FAMILY HISTORY Noncontributory. ALLERGIES SHE IS NOT ALLERGIC TO ANY MEDICATIONS. MEDICATIONS Current medication showin. Atarax 10 mg b.i.d. 2. Coreg 3.125 mg b.i.d. 3. Lexapro 20 mg once a day. 4. Latuda 20 mg once a day. 5. Allopurinol 200 mg daily. 6. Norvasc 10 mg once a day. 7. Lipitor 20 mg q.h.s. 8. Trazodone 100 mg q.h.s. 9. Albuterol nebulizer. 10. Heparin 5000 units subcu q. 12. 11. Reglan 5 mg t.i.d. 12. Ativan as needed. 13. Lactulose as needed. 14. Clonidine as needed. PHYSICAL EXAMINATION GENERAL: The patient is awake and alert. She is currently on hemodialysis. VITAL SIGNS: Last blood pressure 182/76, temperature is 97.4, oxygen saturation is 99% on room air. HEENT: Pupils are mid constricted. Nonicteric sclerae. Conjunctivae pale. NECK: Supple. JVD is not elevated. LUNGS: The patient has bilateral decreased air entry with questionable wheezing. HEART: S1-S2. Regular rhythm. ABDOMEN: Distended. Soft. Lax. There is no tenderness. Bowel sounds positive. EXTREMITIES: She has mild edema. LABORATORY DATA Investigations, WBC count is 8.8, hemoglobin 9.8, platelet count 123. Neutrophils 91.2%. Sodium 126, potassium 4.4, chloride 91, bicarb 24.7, BUN 50, creatinine 5.6, glucose 157. Urinalysis showing protein of 300, rbc's 3, wbc's 3. Blood culture so far showing no growth. IMAGING STUDIES The patient has chest x-ray done which showed that there is slight pleural effusion with possibility of some infiltrate. ASSESSMENT/PLAN 1. End-stage renal disease on hemodialysis. 2. Hyponatremia. 3. Fluid overload status with history of congestive heart failure. 4. Hypertension not controlled. 5. Anemia. The patient has been on hemodialysis now and this will improve her sodium level. She needs to restrict her fluid intake. She is getting low-dose of Epogen with dialysis. Her blood pressure is on the higher side, need to follow the blood pressure after dialysis and if needed she will need some medications beside Coreg for blood pressure controlled. Thank you for the consultation. I will follow the patient and give further recommendation as needed. MD SARINA Tatum/CINTIA /3:50 PM /4:03 PM
[2017-04-05] MEDS: ATORVASTATIN 20 MG TAB PO SCH (21:30)
[2017-04-05] MEDS: traZODone HCL 100 MG TAB PO SCH (21:30)
[2017-04-06] VITALS (10 sets, daily range): BP systolic 130–165; BP diastolic 62–73; PULSE 64–81; RESP 14–20; TEMP 97.1–99; O2SAT 93–96
[2017-04-06] MEDS: RESP: ALBUTEROL CONC 2.5 MG/0.5 ML NEB NEB SCH ×4 (04:59→21:01)
[2017-04-06] MEDS: METOCLOPRAMIDE HCL 10 MG TAB PO SCH ×3 (08:00→17:00)
[2017-04-06 08:24] LABS: HEMATOCRIT 27.6 % (35.0-46.0); MEAN CELL VOLUME 87.5 FL (80.0-100.0); MEAN CORPUSCULAR HEMOGLOBIN 29.5 PG (27.0-34.0); MEAN CORPUSCULAR HGB CONC 33.7 % (32.0-36.0); PLATELET COUNT 138 TH/MM3 (150-450); RED BLOOD COUNT 3.16 MIL/MM3 (4.00-5.30); REVIEW FLAG FINAL; WHITE BLOOD COUNT 4.1 TH/MM3 (4.0-11.0)
[2017-04-06 09:07] LABS: POTASSIUM 3.9 MEQ/L (3.5-5.1)
[2017-04-06] MEDS: ESCITALOPRAM OXALATE 20 MG TAB PO SCH (09:34)
[2017-04-06] MEDS: SODIUM CHLORIDE 0.9% FLUSH 10 ML FLUSH IV FLUSH SCH ×2 (09:34→20:56)
[2017-04-06] MEDS: ALLOPURINOL 100 MG TAB PO SCH (09:35)
[2017-04-06] MEDS: CARVEDILOL 3.125 MG TAB PO SCH ×2 (09:35→20:52)
[2017-04-06] MEDS: hydrOXYzine HCL 10 MG TAB PO SCH ×2 (09:43→20:52)
[2017-04-06] MEDS: LURASIDONE 40 MG TAB PO SCH (09:44)
[2017-04-06] MEDS ORDERED: INFLUENZA VIRUS VACCINE (QUADRIVALENT) 0.5 ML SYR IM ONE (10:00)
[2017-04-06] MEDS: HEPARIN SODIUM - SQ 10,000 UNITS/ML VIAL SQ SCH ×2 (10:17→22:30)
--- NOTE | 2017-04-06 11:38 | HHI.PR ---
Subjective Remarks Follow-up for CHF exacerbation and she remains off of oxygen. Denies any shortness of breathing or cough. She remains afebrile. Dealt with patient in regards to her diet. She stated that she does eat frozen food. Otherwise denies eating out, process food or can food. Objective Vitals Vital Signs Date Time Temp Pulse Resp B/P (MAP) Pulse Ox O2 Delivery O2 Flow Rate FiO2 04/06/17 08:45 96 21 04/06/17 08:00 98.1 65 20 130/62 (84) 95 04/06/17 04:00 97.2 71 16 153/72 (99) 96 04/06/17 00:00 98.0 81 20 142/70 (94) 94 04/05/17 21:47 97 04/05/17 20:00 98.2 76 18 149/67 (94) 93 04/05/17 20:00 74 04/05/17 20:00 Room Air 04/05/17 16:00 97.5 81 20 190/75 (113) 97 04/05/17 12:00 97.5 74 20 177/75 (109) 95 I/O 04/05/17 04/05/17 04/05/17 04/06/17 04/06/17 04/06/17 07:00 15:00 23:00 07:00 15:00 23:00 Intake Total 120 ml 360 ml 660 ml Output Total 4100 ml 400 ml Balance 120 ml -3740 ml 260 ml Intake Oral 120 ml 360 ml 660 ml Output Urine Total 100 ml 400 ml Hemodialysis 4000 ml # Voids 2 2 # Bowel Movements 0 0 Result Diagram: 04/06/1758 04/06/1758 Objective Remarks GENERAL: in NAD CARDIOVASCULAR: Regular rate and rhythm without murmurs, gallops, or rubs. RESPIRATORY: Decreased right basilar breath sounds otherwise clear to auscultation. No accessory muscle use. GASTROINTESTINAL: Abdomen soft, non-tender, nondistended. MUSCULOSKELETAL: No cyanosis, or edema. Medications and IVs Current Medications Sodium Chloride (NS Flush) 2 ml UNSCH PRN IVF FLUSH AFTER USING IV ACCESS; Start 04/04/17 at 21:30; Stop 04/05/17 at 00:34; Status DC Methylprednisolone Sodium Succinate (SoluMEDROL INJ) 125 mg ONCE ONCE IV PUSH Last administered on 04/04/17 21:38; Start 04/04/17 at 21:30; Stop 04/04/17 at 21:31; Status DC Albuterol/ Ipratropium (Duoneb Neb) 1 ampule Q15M INH Last administered on 04/04 22:32; Start 04/04/17 at 21:30; Stop 04/04/17 at 21:46; Status DC Hydralazine HCl (Apresoline Inj) 10 mg ONCE ONCE IV PUSH Last administered on 04/04/17 21:38; Start 04/04/17 at 21:30; Stop 04/04/17 at 21:31; Status DC Hydrocodone Bit/ Homatropine Methylb (Hycodan Liq) 5 ml NOW ONCE PO Last administered on 04/04/17 22:47; Start 04/04/17 at 22:15; Stop 04/04/17 at 22:16 ; Status DC Furosemide (Lasix Inj) 40 mg ONCE ONCE IV PUSH Last administered on 04/04/17 22:47; Start 04/04/17 at 22:45; Stop 04/04/17 at 22:46; Status DC Albuterol Sulfate (Albuterol Concentrated Neb) 2.5 mg Q6HR NEB NEB Last administered on 04/06/17 08:43; Start 04/05/17 at 04:00 Allopurinol (Zyloprim) 300 mg DAILY PO ; Start 04/05/17 at 09:00; Status Cancel Atorvastatin Calcium (Lipitor) 20 mg HS PO Last administered on 04/05/17 21:30 ; Start 04/05/17 at 21:00 Escitalopram Oxalate (Lexapro) 20 mg DAILY PO Last administered on 04/06/17 09 :34; Start 04/05/17 at 09:00 Hydroxyzine HCl (Atarax) 10 mg BID PO Last administered on 04/06/17 09:43; Start 04/05/17 at 09:00 Lorazepam (Ativan) 1 mg DAILY PRN PO ANXIETY AND/OR AGITATION; Start 04/04/17 at 23:00 Lurasidone HCl (Latuda) 20 mg DAILY PO Last administered on 04/06/17 09:44; Start 04/05/17 at 09:00 Trazodone HCl (Desyrel) 100 mg HS PO Last administered on 04/05/17 21:30; Start 04/05/17 at 21:00 Non-Formulary Medication 210 mg 2-3 TIMES A DAY PO ; Start 04/04/17 at 23:00; Status Cancel Metoclopramide HCl (Reglan) 5 mg TIDAC PO ; Start 04/05/17 at 08:00 Sodium Chloride (NS Flush) 2 ml UNSCH PRN IV FLUSH FLUSH AFTER USING IV ACCESS ; Start 04/04/17 at 23:00 Sodium Chloride (NS Flush) 2 ml BID IV FLUSH Last administered on 04/06/17 09: 34; Start 04/05/17 at 09:00 Acetaminophen (Tylenol) 650 mg Q4H PRN PO TEMP > 100.4; Start 04/04/17 at 23:00 Ondansetron HCl (Zofran Inj) 4 mg Q6H PRN IVP NAUSEA OR VOMITING; Start at 23:00 Heparin Sodium (Porcine) (Heparin Inj) 5,000 units Q12H SQ Last administered on 04/06/17 10:17; Start 04/04/17 at 23:00 Naloxone HCl (Narcan Inj) 0.4 mg UNSCH PRN IV PUSH SEE LABEL COMMENTS; Start at 23:00 Magnesium Hydroxide (Milk Of Magnesia Liq) 30 ml Q12H PRN PO MILD - MODERATE CONSTIPATION; Start 04/04/17 at 23:00 Sennosides (Senokot) 17.2 mg Q12H PRN PO MODERATE - SEVERE CONSTIPATION; Start 04/04/17 at 23:00 Bisacodyl (Dulcolax Supp) 10 mg DAILY PRN RECTAL SEVERE CONSITIPATION; Start at 23:00 Lactulose (Lactulose Liq) 30 ml DAILY PRN PO SEVERE CONSITIPATION; Start at 23:00 Carvedilol (Coreg) 3.125 mg BID PO Last administered on 04/06/17 09:35; Start 04/05/17 at 09:00 Hydralazine HCl (Apresoline Inj) 10 mg Q6H PRN IV SBP> OR = 180, DBP> OR = 100 ; Start 04/04/17 at 23:15 Clonidine (Catapres) 0.1 mg Q6H PRN PO SBP> OR = 180, DBP> OR = 100; Start at 23:15 Allopurinol (Zyloprim) 200 mg DAILY PO Last administered on 04/06/17 09:35; Start 04/05/17 at 09:00 Patient Own Medication PT OWN MED: RITA... TID PO ; Start 04/04/17 at 09:00; Stop 04/05/17 at 00:32; Status DC Patient Own Medication PT OWN MED: RITA... TID PO ; Start 04/05/17 at 09:00; Status Future Hold Influenza Virus Vaccine (Flu (Quadrivalent) Vaccine Inj) 0.5 ml ONCE ONCE IM Last administered on 04/06/17 10:18; Start 04/06/17 at 10:00; Stop 04/06/17 at 10:01; Status DC Amlodipine Besylate (Norvasc) 10 mg DAILY PO Last administered on 04/06/17 09: 35; Start 04/05/17 at 09:00 Sodium Chloride 1,000 ml @ 0 mls/hr Q0M PRN OTHER For Prime & Rinse Back Last administered on 04/05/17 16:10; Start 04/05/17 at 09:40 Heparin Sodium (Porcine) (Heparin Inj) 8,000 units UNSCH PRN IV FLUSH WITH DIALYSIS; Start 04/05/17 at 09:45 Sodium Chloride 1,000 ml @ 200 mls/hr Q5H PRN IV WITH DIALYSIS; Start 04/05/17 at 09:40 Sodium Chloride 1,000 ml @ 0 mls/hr Q0M PRN OTHER WITH DIALYSIS; Start at 09:40 Mannitol (Mannitol Inj) 12.5 gm UNSCH PRN IV WITH DIALYSIS; Start 04/05/17 at 09:45 Albumin Human (Albumin 25% Inj) 25 gm UNSCH PRN IV WITH DIALYSIS; Start at 09:45 Sodium Chloride (NS Flush) 5 ml UNSCH PRN IV FLUSH WITH DIALYSIS; Start at 09:45 Heparin Sodium (Porcine) (Heparin Inj) UNSCH PRN .XX WITH DIALYSIS; Start at 09:45 Gentamicin Sulfate (Gentamicin (Dialysis) Inj) 20 mg UNSCH PRN OTHER WITH DIALYSIS; Start 04/05/17 at 09:45 Ondansetron HCl (Zofran Inj) 4 mg UNSCH PRN IV PUSH WITH DIALYSIS; Start at 09:45 Acetaminophen (Tylenol) 650 mg UNSCH PRN PO for headach, pain, temp > 101F; Start 04/05/17 at 09:45 Diphenhydramine HCl (Benadryl) 25 mg UNSCH PRN PO for hives/itching/anaphylaxis ; Start 04/05/17 at 09:45 Nitroglycerin (Nitrostat Sl) 0.4 mg UNSCH PRN SL CHEST PAIN; Start 04/05/17 at 09:45 Clonidine (Catapres) 0.1 mg UNSCH PRN PO for BP > 180/100 X 2 readings; Start 04/05/17 at 09:45 Epoetin Mauri (Epogen Inj) 6,000 units UNSCH PRN IV WITH DIALYSIS; Start at 09:45 Gelatin (Gelfoam 12 Mm/7 Mm Top) 1 foam UNSCH PRN TOP SEE LABEL COMMENTS Last administered on 04/05/17t 16:10; Start 04/05/17 at 09:45 A/P Problem List: (1) CHF (congestive heart failure) ICD Code: I50.9 - Heart failure, unspecified Status: Acute (2) ESRD (end stage renal disease) on dialysis ICD Code: N18.6 - End stage renal disease; Z99.2 - Dependence on renal dialysis Status: Acute (3) Bipolar disorder ICD Code: F31.9 - Bipolar disorder, unspecified Status: Acute (4) Hypertension ICD Code: I10 - Essential (primary) hypertension Status: Chronic Assessment and Plan 51-year-old female with end-stage renal disease on dialysis, bipolar disorder, on controlled hypertension presents with worsening shortness of breath, fatigue , nausea. Evidence of congestive heart failure. Congestive heart failure: No known history of CHF per the patient. LVEF on echocardiogram in October of 2016 preserved at 60%. Moderate to severe aortic valve regurgitation and there was mild tricuspid valve regurgitation. Cardiac enzymes negative. -Most likely secondary to being volume overloaded. Noncompliant with low sodium diet. Extensive education given on low sodium diet. -Scheduled for dialysis tomorrow. Symptoms seem to resolve.. -Echo now shows moderate to severe pulmonary hypertension. We'll consult hydraulic mechanic. Uncontrolled hypertension, improved. - Continue with Coreg and amlodipine - Continue to monitor. Hydralazine or clonidine as needed End-stage renal disease on hemodialysis: - Hemodialysis per provider network analyst. Bipolar disorder: Continue home medications. Continue the rest of the patient's home medication for her chronic conditions as indicated. GI prophylaxis: Stool softener PRN constipation. DVT PPx: Heparin Dealt with patient's nurse Leila. Discharge Planning If patient is cleared by hydraulic mechanic patient can be discharged to home with outpatient dialysis. Problem Qualifiers (1) CHF (congestive heart failure): Qualified Codes: I50.9 - Heart failure, unspecified (2) Hypertension: Qualified Codes: I10 - Essential (primary) hypertension Shana Leroy MD Apr 06, 2017 11:38
[2017-04-06] MEDS: ACETAMINOPHEN 325 MG TAB PO PRN (19:52)
[2017-04-06] MEDS: traZODone HCL 100 MG TAB PO SCH (20:52)
[2017-04-06] MEDS: ATORVASTATIN 20 MG TAB PO SCH (20:52)
--- NOTE | 2017-04-06 22:15 | HHI.NPPN ---
Subjective History of Present Illness 51-year-old female with past medical history of hypertension, chronic obstructive pulmonary disease, end-stage renal disease on hemodialysis, hyperlipidemia, chronic anemia who was admitted with complaint of shortness of breath, cough, nausea and vomiting. I was called to see the patient for management of dialysis. The patient has been on hemodialysis Wednesday, Wednesday and Wednesday. Additional Remarks Patient is alert, breathing is better, now has no chest pain. Review of Systems General Constitutional: Fatigue Respiratory Lungs: SOB, Cough Cardiovascular Cardiac: Chest Pain, KEITH Objective Data Data 04/06/17 04/07/17 19:00 07:00 Intake Total 960 ml Output Total 1600 ml Balance -640 ml Intake Oral 960 ml Output Urine Total 1600 ml # Bowel Movements 0 Vital Signs Date Time Temp Pulse Resp B/P (MAP) Pulse Ox O2 Delivery O2 Flow Rate FiO2 04/06/17 19:10 99.0 74 14 160/69 (99) 93 04/06/17 16:00 98.3 70 20 152/69 (96) 94 04/06/17 16:00 98.2 73 14 147/66 (93) 93 04/06/17 15:02 93 21 04/06/17 12:00 97.9 81 20 159/65 (96) 93 04/06/17 08:45 96 21 04/06/17 08:00 98.1 65 20 130/62 (84) 95 04/06/17 08:00 Room Air 04/06/17 08:00 64 04/06/17 04:00 97.2 71 16 153/72 (99) 96 04/06/17 00:00 98.0 81 20 142/70 (94) 94 -: 04/06/17 0658 04/06/17 0658 Physical Exam General Appearance: No Acute Distress, Comfortable Eyes Eye Exam: Pupils Equal Throat Throat Exam: Oral Mucosa [place] & Moist Neck Neck Exam: Neck Supple Pulmonary Resp Exam: Breath Sounds Equal, No Distress, Rhonchi, Decreased Bases, Diminished Breath Sounds Cardiology CV Exam: Regular, Normal Sinus Rhythm Gastrointestinal/Abdomen GI Exam: Soft, Non-Tender, Bowel Sounds Present Extremeties Extremities Exam: Trace Edema Neurologic Neuro Exam: Alert, Awake Psychiatric Psych Exam: Appropriate Responses Assessment/Plan Assessment Summary: Anemia of CKD, Hypertension, End Stage Renal Disease Problem List: (1) Bipolar 1 disorder, depressed ICD Codes: F31.9 - Bipolar disorder, unspecified Status: Chronic (2) Anemia ICD Codes: D64.9 - Anemia, unspecified Status: Acute (3) CHF (congestive heart failure) ICD Codes: I50.9 - Heart failure, unspecified Status: Acute (4) Hypoxia ICD Codes: R09.02 - Hypoxemia Status: Acute (5) COPD (chronic obstructive pulmonary disease) ICD Codes: J44.9 - Chronic obstructive pulmonary disease, unspecified Status: Chronic (6) Hypertension ICD Codes: I10 - Essential (primary) hypertension Status: Chronic (7) ESRD (end stage renal disease) ICD Codes: N18.6 - End stage renal disease Status: Chronic Plan Patient has improvement in the breathing. Need to restrict oral fluids. HD done and 4 liters removed. Tolerated well. HD again in AM. Problem Qualifiers (1) CHF (congestive heart failure): Qualified Codes: I50.9 - Heart failure, unspecified (2) Hypertension: Qualified Codes: I10 - Essential (primary) hypertension Jessica Colin MD Apr 06, 2017 22:15
[2017-04-07] VITALS (10 sets, daily range): BP systolic 156–186; BP diastolic 62–79; PULSE 69–82; RESP 16–20; TEMP 97.2–98.6; O2SAT 92–98
[2017-04-07] MEDS: RESP: ALBUTEROL CONC 2.5 MG/0.5 ML NEB NEB SCH ×4 (02:29→21:04)
[2017-04-07] MEDS: hydrALAZINE HCL 25 MG TAB PO SCH ×4 (09:00→21:23)
--- NOTE | 2017-04-07 09:08 | MB ---
cc: BARBARA JIMENEZ M.D. DATE OF CONSULTATION: 04/07/2017 REASON FOR CONSULTATION Pulmonary hypertension and COPD. HISTORY OF PRESENT ILLNESS The patient is a 51-year-old female with known history of end-stage renal disease on maintenance hemodialysis. She has history of COPD as well as uncontrolled hypertension and chronic anemia. The patient had a in the past and as well has an ovarian cyst surgically removed. SOCIAL HISTORY Long smoking history, continues to smoke up until this time, tells me she only smokes a few cigarettes a day now. Drinks alcohol socially. Does not use drugs. FAMILY HISTORY Positive for hypertension and heart disease, otherwise unremarkable. REVIEW OF SYSTEMS A 12-point review of systems as per HPI and past history, otherwise negative. ALLERGIES None known to medication. MEDICATIONS Medications at home include: 1. Atarax. 2. Coreg. 3. Lexapro. 4. Latuda. 5. Allopurinol. 6. Norvasc. 7. Lipitor. 8. Trazodone. 9. Albuterol as needed. 10.Reglan. 11.Ativan. 12.Lactulose. 13.Clonidine. PHYSICAL EXAMINATION GENERAL: On exam the patient is alert. VITAL SIGNS: Her temperature is 98, pulse 70, respirations 18, blood pressure 160/70. Oxygen saturation is 92% on room air. HEENT: Unremarkable. Eyes without icterus. NECK: Without adenopathy or thyroid enlargement. Central trachea. CHEST: Without dullness to percussion. A few rhonchi at bases on auscultation. CARDIAC: PMI distant. S1, S2 audible. No murmur or rub. ABDOMEN: Lax. Bowel sounds audible. EXTREMITIES: No clubbing, cyanosis or edema. IMAGING Chest x-ray with right pleural effusion and suggestion of congestive heart failure. LABORATORY White count 4000, hemoglobin 9.3, platelets 138,000. ABG pH 7.42, PCO2 39, PO2 65. Sodium 132, potassium 3.9, BUN 30, creatinine 3.7. BNP 2673. IMPRESSION 1. Pulmonary hypertension. Systolic pulmonary artery pressure in the 60s. 2. COPD. 3. End-stage renal disease on maintenance hemodialysis. 4. Hypertension. 5. Chronic anemia. PLAN The patient's pulmonary hypertension is likely multifactorial related to underlying fluid overload related to kidney disease and cardiac component related to aortic regurgitation which is reported as mild to moderate. Obviously her COPD could be a major contributing component. Underlying sleep disordered breathing needs to be considered as well. Will obtain pulmonary function to assess the severity of underlying COPD. Polysomnographic evaluation would be appropriate. Dialysis to remove excess fluid obviously will be helpful and follow her pulmonary arterial pressures and if need be initiate therapy. A V/Q lung scan will be obtained to assure the absence of pulmonary embolization which may be a cause of pulmonary hypertension as well. A CT scan of the chest without contrast to assess if indeed she has congestive change, fluid overload, lung infiltrate or pleural effusion will be obtained as well. Depending on the findings will proceed further. I do thank you for asking me to partake in Mrs. Cheema's care. Barbara Jimenez MD WWW/HARPER /8:31 AM /8:46 AM
[2017-04-07] MEDS: SODIUM CHLOR 0.9% 1000 ML INJ 1,000 ML OTHER PRN (11:30)
[2017-04-07] MEDS: GELATIN 12 MM/7 MM FOAM TOP PRN (11:30)
[2017-04-07] MEDS ORDERED: POLYETHYLENE GLYCOL 17 GM PKG PO ONE (13:15)
--- NOTE | 2017-04-07 13:19 | HHI.PR ---
Subjective Remarks Follow up on patient with CHF exacerbation, ESRD on HD. Patient seen and examined in HD. Patient reports headache today. She denies any shortness of breath. Denies any fever or chills. Denies any chest pain. Denies any N/V or abdominal pain. She does endorse constipation. Objective Vitals Vital Signs Date Time Temp Pulse Resp B/P (MAP) Pulse Ox O2 Delivery O2 Flow Rate FiO2 04/07/17 08:30 Room Air 04/07/17 08:30 73 04/07/17 08:00 97.2 82 20 186/79 (114) 92 04/07/17 04:00 98.3 69 18 156/70 (98) 93 04/07/17 04:00 93 Room Air 04/07/17 00:00 Room Air 04/07/17 00:00 97.3 74 18 166/73 (104) 92 04/06/17 20:50 Room Air 04/06/17 20:27 77 04/06/17 20:00 97.1 79 18 165/73 (103) 96 04/06/17 19:10 99.0 74 14 160/69 (99) 93 04/06/17 16:00 98.3 70 20 152/69 (96) 94 04/06/17 16:00 98.2 73 14 147/66 (93) 93 04/06/17 15:02 93 21 I/O 04/06/17 04/06/17 04/06/17 04/07/17 04/07/17 04/07/17 07:00 15:00 23:00 07:00 15:00 23:00 Intake Total 660 ml 960 ml Output Total 400 ml 1600 ml 4000 ml Balance 260 ml -640 ml -4000 ml Intake Oral 660 ml 960 ml Output Urine Total 400 ml 1600 ml Hemodialysis 4000 ml # Bowel Movements 0 0 Result Diagram: 04/06/1765704/06/17657 Imaging Last Impressions Chest X-Ray 04/04/172115 Signed Impressions: Service Date/Time: Tuesday, April 04, 2017 21:32 - CONCLUSION: No significant change. Pulmonary infiltrates and apparent right effusion. The findings could indicate congestive heart failure. Bola Faustin MD Objective Remarks GENERAL: Well-nourished, well-developed patient in NAD. Awake and alert. Appears comfortable. In the HD unit undergoing treatment. SKIN: Warm and dry. HEAD: Normocephalic. Atraumatic. EYES: EOMI. No scleral icterus. No injection or drainage. ENT: No nasal bleeding or discharge. Mucous membranes pink and moist. NECK: Supple. Trachea midline. CARDIOVASCULAR: Regular rate and rhythm. S1, S2 noted. No murmur appreciated. RESPIRATORY: No accessory muscle use. Clear to auscultation. Breath sounds equal bilaterally. GASTROINTESTINAL: Abdomen soft, non-tender, nondistended. Normoactive bowel sounds x4. MUSCULOSKELETAL: Extremities without clubbing, cyanosis, or edema. NEUROLOGICAL: Awake and alert. Able to move all extremities spontaneously. Nonfocal. Normal speech. Medications and IVs Current Medications Medications (Trade) Dose Ordered Sig/Lora Route Start Time Stop Time Status Last Admin (Albuterol Concentrated Neb) 2.5 mg Q6HR NEB NEB 04/05/17 04:00 04/07/17 02:29 (Lipitor) 20 mg HS PO 04/05/17 21:00 04/06/17 20:52 (Lexapro) 20 mg DAILY PO 04/05/17 09:00 04/06/17 09:34 (Atarax) 10 mg BID PO 04/05/17 09:00 04/06/17 20:52 (Ativan) 1 mg DAILY PRN PO 04/04/17 23:00 (Latuda) 20 mg DAILY PO 04/05/17 09:00 04/06/17 09:44 (Desyrel) 100 mg HS PO 04/05/17 21:00 04/06/17 20:52 (Reglan) 5 mg TIDAC PO 04/05/17 08:00 (NS Flush) 2 ml UNSCH PRN IV FLUSH 04/04/17 23:00 (NS Flush) 2 ml BID IV FLUSH 04/05/17 09:00 04/06/17 20:56 (Tylenol) 650 mg Q4H PRN PO 04/04/17 23:00 (Zofran Inj) 4 mg Q6H PRN IVP 04/04/17 23:00 (Heparin Inj) 5,000 units Q12H SQ 04/04/17 23:00 04/06/17 22:30 (Narcan Inj) 0.4 mg UNSCH PRN IV PUSH 04/04/17 23:00 (Milk Of Magnesia Liq) 30 ml Q12H PRN PO 04/04/17 23:00 (Senokot) 17.2 mg Q12H PRN PO 04/04/17 23:00 (Dulcolax Supp) 10 mg DAILY PRN RECTAL 04/04/17 23:00 (Lactulose Liq) 30 ml DAILY PRN PO 04/04/17 23:00 (Coreg) 3.125 mg BID PO 04/05/17 09:00 04/06/17 20:52 (Apresoline Inj) 10 mg Q6H PRN IV 04/04/17 23:15 (Catapres) 0.1 mg Q6H PRN PO 04/04/17 23:15 (Zyloprim) 200 mg DAILY PO 04/05/17 09:00 04/06/17 09:35 Patient Own Medication PT OWN MED: RITA... TID PO 04/05/17 09:00 Future Hold (Norvasc) 10 mg DAILY PO 04/05/17 09:00 04/06/17 09:35 Sodium Chloride 1,000 ml @ 0 mls/hr Q0M PRN OTHER 04/05/17 09:40 04/07/17 11:30 (Heparin Inj) 8,000 units UNSCH PRN IV FLUSH 04/05/17 09:45 Sodium Chloride 1,000 ml @ 200 mls/hr Q5H PRN IV 04/05/17 09:40 Sodium Chloride 1,000 ml @ 0 mls/hr Q0M PRN OTHER 04/05/17 09:40 (Mannitol Inj) 12.5 gm UNSCH PRN IV 04/05/17 09:45 (Albumin 25% Inj) 25 gm UNSCH PRN IV 04/05/17 09:45 (NS Flush) 5 ml UNSCH PRN IV FLUSH 04/05/17 09:45 (Heparin Inj) UNSCH PRN .XX 04/05/17 09:45 (Gentamicin (Dialysis) Inj) 20 mg UNSCH PRN OTHER 04/05/17 09:45 (Zofran Inj) 4 mg UNSCH PRN IV PUSH 04/05/17 09:45 (Tylenol) 650 mg UNSCH PRN PO 04/05/17 09:45 04/06/17 19:52 (Benadryl) 25 mg UNSCH PRN PO 04/05/17 09:45 (Nitrostat Sl) 0.4 mg UNSCH PRN SL 04/05/17 09:45 (Catapres) 0.1 mg UNSCH PRN PO 04/05/17 09:45 (Epogen Inj) 6,000 units UNSCH PRN IV 04/05/17 09:45 (Gelfoam 12 Mm/7 Mm Top) 1 foam UNSCH PRN TOP 04/05/17 09:45 04/07/17 11:30 (Apresoline) 25 mg Q8HR PO 04/07/17 09:00 A/P Problem List: (1) CHF (congestive heart failure) ICD Code: I50.9 - Heart failure, unspecified Status: Acute (2) ESRD (end stage renal disease) on dialysis ICD Code: N18.6 - End stage renal disease; Z99.2 - Dependence on renal dialysis Status: Acute (3) Bipolar disorder ICD Code: F31.9 - Bipolar disorder, unspecified Status: Acute (4) Hypertension ICD Code: I10 - Essential (primary) hypertension Status: Chronic Assessment and Plan 51-year-old female with end-stage renal disease on dialysis, bipolar disorder, on controlled hypertension presents with worsening shortness of breath, fatigue , nausea. Evidence of congestive heart failure. Congestive heart failure: No known history of CHF per the patient. LVEF on echocardiogram in October of 2016 preserved at 60%. Moderate to severe aortic valve regurgitation and there was mild tricuspid valve regurgitation. Cardiac enzymes negative. - Most likely secondary to being volume overloaded. Noncompliant with low sodium diet. Extensive education given on low sodium diet. - Ongoing dialysis. - Echo now shows moderate to severe pulmonary hypertension. - Pulmonary consult, appreciate recommendations. V/Q scan, CT chest and pulmonary function test ordered. - Continue to monitor respiratory status. Patient currently at 92% on room air. Uncontrolled hypertension, improved but not optimized - Begin hydralazine 25 mg by mouth 3 times a day - Continue with Coreg and amlodipine - Continue to monitor. Hydralazine or clonidine as needed End-stage renal disease on hemodialysis: MWF - Hemodialysis per hardwood flooring specialist. Anemia - Likely from chronic disease - Appears stable - Epogen per nephrology - Monitor CBC as indicated Hyponatremia - Suspect secondary to fluid overload - Improving - Continue to monitor. AM labs ordered. Constipation - Katalina colace BID - Miralax now - monitor for BM Bipolar disorder: Continue home medications. Headache: - Tylenol prn Continue the rest of the patient's home medication for her chronic conditions as indicated. DVT PPx: Heparin Discussed with patient and Dr. Leroy Discharge Planning Pending pulmonary workup and recommendations Problem Qualifiers (1) CHF (congestive heart failure): Qualified Codes: I50.9 - Heart failure, unspecified (2) Hypertension: Qualified Codes: I10 - Essential (primary) hypertension Rosie Nunez Apr 07, 2017 13:18
[2017-04-07] MEDS: HEPARIN SODIUM - SQ 10,000 UNITS/ML VIAL SQ SCH ×2 (13:26→22:24)
[2017-04-07] MEDS: hydrOXYzine HCL 10 MG TAB PO SCH ×2 (13:26→21:23)
[2017-04-07] MEDS: CARVEDILOL 3.125 MG TAB PO SCH ×2 (13:27→21:22)
[2017-04-07] MEDS: ALLOPURINOL 100 MG TAB PO SCH (13:27)
[2017-04-07] MEDS: SODIUM CHLORIDE 0.9% FLUSH 10 ML FLUSH IV FLUSH SCH ×2 (13:27→21:24)
[2017-04-07] MEDS: LURASIDONE 40 MG TAB PO SCH (13:27)
[2017-04-07] MEDS: ESCITALOPRAM OXALATE 20 MG TAB PO SCH (13:27)
[2017-04-07] MEDS: METOCLOPRAMIDE HCL 10 MG TAB PO SCH ×3 (13:28→16:38)
--- NOTE | 2017-04-07 13:45 | RADRPT ---
EXAM DATE/TIME: 04/07/2017 12:22 [facility] COMPARISON: CT THORAX W/O CONTRAST, September 08, 2016, 22:24. INDICATIONS : Shortness of breath. Evaluate pleural effusions. RADIATION DOSE: 3.34 CTDIvol (mGy) MEDICAL HISTORY : Cardiovascular disease. Chronic obstructive pulmonary disease. Hypertension. Renal failure SURGICAL HISTORY : None. ENCOUNTER: Initial ACUITY: 2 days PAIN SCALE: 0/10 LOCATION: Chest TECHNIQUE: Volumetric scanning of the chest was performed. Using automated exposure control and adjustment of t he mA and/or kV according to patient size, radiation dose was kept as low as reasonably achievable to obtain optimal diagnostic quality images. DICOM format image data is available electronically for r eview and comparison. Follow-up recommendations for detected pulmonary nodules are based at a minimum on nodule size and pa tient risk factors according to Fleischner Society Guidelines. FINDINGS: Mild interstitial prominence is present with a small 25% right pleural effusion, with compressive atelectasis right base. Left lung is clear. Axillary dialysis fistula is noted. There is no mediastinal adenopathy. There is compensated cardiomegaly. Portion of the liver and spleen identified are free of focal defects. CONCLUSION: Small right pleural effusion with minimal compressive changes right lower lobe. Clinton Parmar MD FACR on April 07, 2017 at 12:45 Board Certified Radiologist. This report was verified electronically.
--- NOTE | 2017-04-07 14:17 | RADRPT ---
EXAM DATE/TIME: 04/07/2017 14:02 [facility] COMPARISON: CHEST SINGLE AP, April 04, 2017, 21:32. INDICATIONS : Short of breath. MEDICAL HISTORY : Congestive heart failure. Chronic obstructive pulmonary disease. Cardiovascular disease. hyperten lb, renal failure SURGICAL HISTORY : None. ENCOUNTER: Initial ACUITY: 3 days PAIN SCORE: 0/10 LOCATION: Bilateral chest FINDINGS: There is a small right basilar effusion. There are atelectatic changes in the right middle and lower lobe. This is improved when compared to previous examination. The left lung is clear. The heart is mildly enlarged. Note is made of a stent overlying left chest. CONCLUSION: 1. Right basilar consolidation and effusion improving compared to prior. Navneet Parmar MD on April 07, 2017 at 14:14 Board Certified Radiologist. This report was verified electronically.
--- NOTE | 2017-04-07 14:56 | RADRPT ---
EXAM DATE/TIME: 04/07/2017 14:05 [facility] COMPARISON: CT THORAX W/O CONTRAST, April 07, 2017, 12:22. INDICATIONS : Dyspnea and pulmonary hypertension. Pulmonary embolism. DOSE: 8.5 mCi Tc99m MAA IV 1.2 mCi Tc99m DTPA aerosol MEDICAL HISTORY : Chronic obstructive pulmonary disease. Renal failure, chronic. Congestive heart failure. SURGICAL HISTORY : section. Right knee. ENCOUNTER: Initial ACUITY: 1 day PAIN SCALE: 0/10 LOCATION: chest TECHNIQUE: Following five minutes of tidal breathing of DTPA aerosol, planar images of the lungs were performed in eight projections. The patient was then injected with MAA, and eight-view perfusion scan was perf ormed. FINDINGS: There is a mildly heterogeneous pattern of aerosol delivery to the periphery of both lungs with centr al clumping of the tracer. No focal ventilatory defects are seen. The perfusion lung scan demonstrates a homogenous pattern of uptake in both lungs. No segmental or s ubsegmental defects are seen. CONCLUSION: 1. Perfusion portion of the examination is within normal limits. No findings to suggest pulmonary emb olus identified. Navneet Parmar MD on April 07, 2017 at 14:53 Board Certified Radiologist. This report was verified electronically.
--- NOTE | 2017-04-07 16:37 | HHI.NPPN ---
Subjective History of Present Illness 51-year-old female with past medical history of hypertension, chronic obstructive pulmonary disease, end-stage renal disease on hemodialysis, hyperlipidemia, chronic anemia who was admitted with complaint of shortness of breath, cough, nausea and vomiting. I was called to see the patient for management of dialysis. The patient has been on hemodialysis Wednesday, Wednesday and Wednesday. Additional Remarks Patient seen in HD, feeling better, breathing improved. Review of Systems General Constitutional: Fatigue Respiratory Lungs: SOB, Cough, Wheeze Cardiovascular Cardiac: Chest Pain, KEITH Objective Data Data 04/07/17 04/08/17 19:00 07:00 Output Total 4000 ml Balance -4000 ml Hemodialysis 4000 ml Vital Signs Date Time Temp Pulse Resp B/P (MAP) Pulse Ox O2 Delivery O2 Flow Rate FiO2 04/07/17 15:58 98.6 75 18 174/72 (106) 93 04/07/17 15:56 94 21 04/07/17 08:30 Room Air 04/07/17 08:30 73 04/07/17 08:00 97.2 82 20 186/79 (114) 92 04/07/17 04:00 98.3 69 18 156/70 (98) 93 04/07/17 04:00 93 Room Air 04/07/17 00:00 Room Air 04/07/17 00:00 97.3 74 18 166/73 (104) 92 04/06/17 20:50 Room Air 04/06/17 20:27 77 04/06/17 20:00 97.1 79 18 165/73 (103) 96 04/06/17 19:10 99.0 74 14 160/69 (99) 93 -: 04/06/17 0658 04/06/17 0658 Physical Exam General Appearance: No Acute Distress, Comfortable Eyes Eye Exam: Pupils Equal Neck Neck Exam: Neck Supple Pulmonary Resp Exam: Breath Sounds Equal, No Distress, Sputum, Decreased Bases Cardiology CV Exam: Regular, Normal Sinus Rhythm Gastrointestinal/Abdomen GI Exam: Soft, Non-Tender, Bowel Sounds Present, Distended Extremeties Extremities Exam: Trace Edema Neurologic Neuro Exam: Alert, Awake Psychiatric Psych Exam: Appropriate Responses Assessment/Plan Assessment Summary: Anemia of CKD, Hypertension, End Stage Renal Disease Problem List: (1) Anemia ICD Codes: D64.9 - Anemia, unspecified Status: Acute (2) Bipolar 1 disorder, depressed ICD Codes: F31.9 - Bipolar disorder, unspecified Status: Chronic (3) COPD (chronic obstructive pulmonary disease) ICD Codes: J44.9 - Chronic obstructive pulmonary disease, unspecified Status: Chronic (4) CHF (congestive heart failure) ICD Codes: I50.9 - Heart failure, unspecified Status: Acute (5) Hypoxia ICD Codes: R09.02 - Hypoxemia Status: Acute (6) ESRD (end stage renal disease) on dialysis ICD Codes: N18.6 - End stage renal disease; Z99.2 - Dependence on renal dialysis Status: Acute Plan Patient has been on HD, trying to remove 4 liters. Now has no chest pain. BP is slightly elevated. Trop I was negative. Continue HD , MWF. Problem Qualifiers (1) CHF (congestive heart failure): Qualified Codes: I50.9 - Heart failure, unspecified Jessica Colin MD Apr 07, 2017 16:36
[2017-04-07] MEDS: traZODone HCL 100 MG TAB PO SCH (21:22)
[2017-04-07] MEDS: DOCUSATE SODIUM 50 MG/SENNA 8.6 MG TAB PO SCH (21:23)
[2017-04-07] MEDS: ATORVASTATIN 20 MG TAB PO SCH (21:23)
[2017-04-08] VITALS (9 sets, daily range): BP systolic 148–162; BP diastolic 65–70; PULSE 71–85; RESP 18–20; TEMP 97.8–98.8; O2SAT 94–98
[2017-04-08] MEDS: RESP: ALBUTEROL CONC 2.5 MG/0.5 ML NEB NEB SCH ×4 (03:34→21:22)
[2017-04-08] MEDS: hydrALAZINE HCL 25 MG TAB PO SCH ×3 (06:10→21:08)
[2017-04-08] MEDS ORDERED: WALKER WHEELS/F1 MIS ×2 (07:40→07:43)
--- NOTE | 2017-04-08 07:41 | HHI.FF ---
Face to Face Verification Diagnosis: (1) CHF (congestive heart failure) (2) COPD (chronic obstructive pulmonary disease) (3) Physical deconditioning (4) ESRD (end stage renal disease) on dialysis (5) Hypertension (6) Hypoxia (7) Hyponatremia Physical Therapy Order: Evaluate and Treat, Improve ambulation, Strength and gait training I have seen patient Deborah Cheema on 04/08/17. My clinical findings support the need for the requested home health care services because: Ltd mobility - disease progression Patient has SOB Deconditioned w/ increased weakness High risk of falls I certify that my clinical findings support that this patient is homebound because: Post-op weakness Hx COPD- exertion dyspnea/weakness Unsteady gait/balance Unsafe to leave home unassisted Unable to use public transportation Rosie Nunez Apr 08, 2017 07:41
[2017-04-08 07:42] LABS: BICARBONATE 33.8 MEQ/L (21.0-32.0); POTASSIUM 4.2 MEQ/L (3.5-5.1)
--- NOTE | 2017-04-08 08:23 | HHI.PR ---
Subjective Remarks ALERT NO SOB AT REST Objective Vital Signs Date Time Temp Pulse Resp B/P (MAP) Pulse Ox O2 Delivery O2 Flow Rate FiO2 04/08/17 04:00 Room Air 04/08/17 04:00 98.0 72 18 161/68 (99) 94 04/08/17 00:00 98.2 71 18 151/65 (93) 97 04/08/17 00:00 Room Air 04/07/17 21:08 98 04/07/17 20:00 Room Air 04/07/17 20:00 79 04/07/17 19:31 98.2 77 16 169/78 (108) 96 04/07/17 16:00 98.2 74 18 160/62 (94) 95 04/07/17 15:58 98.6 75 18 174/72 (106) 93 04/07/17 15:56 94 21 04/07/17 08:30 Room Air 04/07/17 08:30 73 I/O 04/07/17 04/07/17 04/07/17 04/08/17 04/08/17 04/08/17 07:00 15:00 23:00 07:00 15:00 23:00 Intake Total 960 ml 220 ml Output Total 4000 ml 850 ml 250 ml Balance -4000 ml 110 ml -30 ml Intake Oral 960 ml 220 ml Output Urine Total 850 ml 250 ml Hemodialysis 4000 ml # Bowel Movements 1 0 Result Diagram: 04/06/17 0658 04/08/17 0655 Objective Remarks GENERAL: SKIN: Warm and dry. HEAD: Atraumatic. Normocephalic. EYES: Pupils equal and round. No scleral icterus. No injection or drainage. ENT: No nasal bleeding or discharge. Mucous membranes pink and moist. NECK: Trachea midline. No JVD. CARDIOVASCULAR: Regular rate and rhythm. RESPIRATORY: No accessory muscle use. Clear to auscultation. Breath sounds equal bilaterally. GASTROINTESTINAL: Abdomen soft, non-tender, nondistended. Hepatic and splenic margins not palpable. MUSCULOSKELETAL: Extremities without clubbing, cyanosis, or edema. No obvious deformities. NEUROLOGICAL: Awake and alert. No obvious cranial nerve deficits. Motor grossly within normal limits. Five out of 5 muscle strength in the arms and legs. Normal speech. PSYCHIATRIC: Appropriate mood and affect; insight and judgment normal. Assessment and Plan Assessment and Plan ASSESSMENT COPD PULMONARY HTN ESRD ON DIALYSIS ANEMIA V/Q SCAN NO PE CT CHEST NO ILD OR MASS PLAN BRONCHODILATOR THERAPY CHECK PFT CARDIAC EVALUATION Physician Attestation Laboratory Tests Test 04/06/17 06:58 04/08/17 06:55 Red Blood Count 3.16 MIL/MM3 (4.00-5.30) Hemoglobin 9.3 GM/DL (11.6-15.3) Hematocrit 27.6 % (35.0-46.0) Platelet Count 138 TH/MM3 (150-450) Blood Urea Nitrogen 30 MG/DL (7-18) 29 MG/DL (7-18) Creatinine 3.73 MG/DL (0.50-1.00) 3.63 MG/DL (0.50-1.00) Sodium Level 132 MEQ/L (136-145) 134 MEQ/L (136-145) Chloride Level 92 MEQ/L (98-107) 95 MEQ/L (98-107) Estimat Glomerular Filtration Rate 13 ML/MIN (>89) 13 ML/MIN (>89) Carbon Dioxide Level 33.8 MEQ/L (21.0-32.0) Barbara Jimenez MD Apr 08, 2017 08:23
[2017-04-08] MEDS: POLYETHYLENE GLYCOL 17 GM PKG PO SCH (09:45)
[2017-04-08] MEDS: DOCUSATE SODIUM 50 MG/SENNA 8.6 MG TAB PO SCH ×2 (09:46→21:00)
[2017-04-08] MEDS: hydrOXYzine HCL 10 MG TAB PO SCH ×2 (09:46→21:00)
[2017-04-08] MEDS: ALLOPURINOL 100 MG TAB PO SCH (09:46)
[2017-04-08] MEDS: METOCLOPRAMIDE HCL 10 MG TAB PO SCH ×3 (09:46→17:47)
[2017-04-08] MEDS: ESCITALOPRAM OXALATE 20 MG TAB PO SCH (09:46)
[2017-04-08] MEDS: CARVEDILOL 3.125 MG TAB PO SCH ×2 (09:46→21:07)
[2017-04-08] MEDS: SODIUM CHLORIDE 0.9% FLUSH 10 ML FLUSH IV FLUSH SCH ×2 (09:47→21:08)
[2017-04-08] MEDS: LURASIDONE 40 MG TAB PO SCH (09:52)
[2017-04-08] MEDS: HEPARIN SODIUM - SQ 10,000 UNITS/ML VIAL SQ SCH ×2 (11:00→23:39)
--- NOTE | 2017-04-08 11:55 | HHI.PR ---
Subjective Remarks Follow up on patient with CHF exacerbation, ESRD on HD. Patient seen and examined. Patient states she feels much better today. Denies any dyspnea. Denies any chest pain. Denies any LE swelling. Denies any N/V or abdominal pain. (+)BM yesterday. Urinating without any difficulties. Objective Vitals Vital Signs Date Time Temp Pulse Resp B/P (MAP) Pulse Ox O2 Delivery O2 Flow Rate FiO2 04/08/17 08:32 95 21 04/08/17 08:00 98.6 74 18 153/69 (97) 96 04/08/17 04:00 Room Air 04/08/17 04:00 98.0 72 18 161/68 (99) 94 04/08/17 00:00 98.2 71 18 151/65 (93) 97 04/08/17 00:00 Room Air 04/07/17 21:08 98 04/07/17 20:00 Room Air 04/07/17 20:00 79 04/07/17 19:31 98.2 77 16 169/78 (108) 96 04/07/17 16:00 98.2 74 18 160/62 (94) 95 04/07/17 15:58 98.6 75 18 174/72 (106) 93 04/07/17 15:56 94 21 I/O 04/07/17 04/07/17 04/07/17 04/08/17 04/08/17 04/08/17 07:00 15:00 23:00 07:00 15:00 23:00 Intake Total 960 ml 220 ml Output Total 4000 ml 850 ml 250 ml Balance -4000 ml 110 ml -30 ml Intake Oral 960 ml 220 ml Output Urine Total 850 ml 250 ml Hemodialysis 4000 ml # Bowel Movements 1 0 Result Diagram: 04/06/17 0658 04/08/17 0655 Imaging Last Impressions Lung Scan-VQ Nuclear Medicine 04/07/17 0000 Signed Impressions: Service Date/Time: Friday, April 07, 2017 14:05 - CONCLUSION: 1. Perfusion portion of the examination is within normal limits. No findings to suggest pulmonary embolus identified. Navneet Parmar MD Chest X-Ray 04/07/17 0000 Signed Impressions: Service Date/Time: Friday, April 07, 2017 14:02 - CONCLUSION: 1. Right basilar consolidation and effusion improving compared to prior. Navneet Parmar MD Chest CT 04/07/17 0000 Signed Impressions: Service Date/Time: Friday, April 07, 2017 12:22 - CONCLUSION: Small right pleural effusion with minimal compressive changes right lower lobe. Clinton Parmar MD FACR Objective Remarks GENERAL: Well-nourished, well-developed patient in NAD. Awake and alert. Sitting up in bed eating breakfast. SKIN: Warm and dry. HEAD: Normocephalic. Atraumatic. EYES: EOMI. No scleral icterus. No injection or drainage. ENT: No nasal bleeding or discharge. Mucous membranes pink and moist. NECK: Supple. Trachea midline. CARDIOVASCULAR: Regular rate and rhythm. S1, S2 noted. No murmur appreciated. RESPIRATORY: No accessory muscle use. Clear to auscultation. Breath sounds equal bilaterally. GASTROINTESTINAL: Abdomen soft, non-tender, nondistended. Normoactive bowel sounds x4. MUSCULOSKELETAL: Extremities without clubbing, cyanosis, or edema. NEUROLOGICAL: Awake and alert. Able to move all extremities spontaneously. Nonfocal. Normal speech. Medications and IVs Current Medications Medications (Trade) Dose Ordered Sig/Lora Route Start Time Stop Time Status Last Admin (Albuterol Concentrated Neb) 2.5 mg Q6HR NEB NEB 04/05/17 04:00 04/08/17 08:30 (Lipitor) 20 mg HS PO 04/05/17 21:00 04/07/17 21:23 (Lexapro) 20 mg DAILY PO 04/05/17 09:00 04/08/17 09:46 (Atarax) 10 mg BID PO 04/05/17 09:00 04/08/17 09:46 (Ativan) 1 mg DAILY PRN PO 04/04/17 23:00 (Latuda) 20 mg DAILY PO 04/05/17 09:00 04/08/17 09:52 (Desyrel) 100 mg HS PO 04/05/17 21:00 04/07/17 21:22 (Reglan) 5 mg TIDAC PO 04/05/17 08:00 04/08/17 09:46 (NS Flush) 2 ml UNSCH PRN IV FLUSH 04/04/17 23:00 (NS Flush) 2 ml BID IV FLUSH 04/05/17 09:00 04/08/17 09:47 (Tylenol) 650 mg Q4H PRN PO 04/04/17 23:00 (Zofran Inj) 4 mg Q6H PRN IVP 04/04/17 23:00 (Heparin Inj) 5,000 units Q12H SQ 04/04/17 23:00 04/07/17 22:24 (Narcan Inj) 0.4 mg UNSCH PRN IV PUSH 04/04/17 23:00 (Milk Of Magnesia Liq) 30 ml Q12H PRN PO 04/04/17 23:00 (Senokot) 17.2 mg Q12H PRN PO 04/04/17 23:00 (Dulcolax Supp) 10 mg DAILY PRN RECTAL 04/04/17 23:00 (Lactulose Liq) 30 ml DAILY PRN PO 04/04/17 23:00 (Coreg) 3.125 mg BID PO 04/05/17 09:00 04/08/17 09:46 (Apresoline Inj) 10 mg Q6H PRN IV 04/04/17 23:15 (Catapres) 0.1 mg Q6H PRN PO 04/04/17 23:15 (Zyloprim) 200 mg DAILY PO 04/05/17 09:00 04/08/17 09:46 Patient Own Medication PT OWN MED: RITA... TID PO 04/05/17 09:00 Future Hold (Norvasc) 10 mg DAILY PO 04/05/17 09:00 04/08/17 09:46 Sodium Chloride 1,000 ml @ 0 mls/hr Q0M PRN OTHER 04/05/17 09:40 04/07/17 11:30 (Heparin Inj) 8,000 units UNSCH PRN IV FLUSH 04/05/17 09:45 Sodium Chloride 1,000 ml @ 200 mls/hr Q5H PRN IV 04/05/17 09:40 Sodium Chloride 1,000 ml @ 0 mls/hr Q0M PRN OTHER 04/05/17 09:40 (Mannitol Inj) 12.5 gm UNSCH PRN IV 04/05/17 09:45 (Albumin 25% Inj) 25 gm UNSCH PRN IV 04/05/17 09:45 (NS Flush) 5 ml UNSCH PRN IV FLUSH 04/05/17 09:45 (Heparin Inj) UNSCH PRN .XX 04/05/17 09:45 (Gentamicin (Dialysis) Inj) 20 mg UNSCH PRN OTHER 04/05/17 09:45 (Zofran Inj) 4 mg UNSCH PRN IV PUSH 04/05/17 09:45 (Tylenol) 650 mg UNSCH PRN PO 04/05/17 09:45 04/06/17 19:52 (Benadryl) 25 mg UNSCH PRN PO 04/05/17 09:45 (Nitrostat Sl) 0.4 mg UNSCH PRN SL 04/05/17 09:45 (Catapres) 0.1 mg UNSCH PRN PO 04/05/17 09:45 (Epogen Inj) 6,000 units UNSCH PRN IV 04/05/17 09:45 (Gelfoam 12 Mm/7 Mm Top) 1 foam UNSCH PRN TOP 04/05/17 09:45 04/07/17 11:30 (Apresoline) 25 mg Q8HR PO 04/07/17 09:00 04/08/17 06:10 (Katalina-Colace) 1 tab BID PO 04/07/17 21:00 04/08/17 09:46 (Miralax) 17 gm DAILY PO 04/08/17 09:00 04/08/17 09:45 A/P Problem List: (1) CHF (congestive heart failure) ICD Code: I50.9 - Heart failure, unspecified Status: Acute (2) ESRD (end stage renal disease) on dialysis ICD Code: N18.6 - End stage renal disease; Z99.2 - Dependence on renal dialysis Status: Acute (3) Bipolar disorder ICD Code: F31.9 - Bipolar disorder, unspecified Status: Acute (4) Hypertension ICD Code: I10 - Essential (primary) hypertension Status: Chronic Assessment and Plan 51-year-old female with end-stage renal disease on dialysis, bipolar disorder, on controlled hypertension presents with worsening shortness of breath, fatigue , nausea. Evidence of congestive heart failure. Congestive heart failure: No known history of CHF per the patient. LVEF on echocardiogram in October of 2016 preserved at 60%. Moderate to severe aortic valve regurgitation and there was mild tricuspid valve regurgitation. Cardiac enzymes negative. - Most likely secondary to being volume overloaded. Noncompliant with low sodium diet. Extensive education given on low sodium diet. - Ongoing dialysis MWF - Echo now shows moderate to severe pulmonary hypertension. - Pulmonary consult, appreciate recommendations. V/Q scan negative for PE. Chest CT showed small right pleural effusion with minimal compressive changes noted RLL. PFT pending. Recommended cardiac evaluation. - Consult Cardiology - Continue to monitor respiratory status. Patient currently at 95% on room air. - Continue with PT - recommends home with HHPT Uncontrolled hypertension, improved but not optimized - Continue hydralazine 25 mg by mouth 3 times a day - Continue with Coreg and amlodipine - Continue to monitor. Hydralazine or clonidine as needed End-stage renal disease on hemodialysis: MWF - Hemodialysis per neurophysiologist. Anemia - Likely from chronic disease - Appears stable - Epogen per nephrology - Monitor CBC as indicated Hyponatremia - Suspect secondary to fluid overload - continues to improve - monitor as indicated Constipation - improved - continue bowel regimen Bipolar disorder: Continue home medications. Headache: - Tylenol prn Continue the rest of the patient's home medication for her chronic conditions as indicated. DVT PPx: Heparin Discussed with patient and Dr. Leroy Discharge Planning Pending pulmonary and cardiology recommendations Problem Qualifiers (1) CHF (congestive heart failure): Qualified Codes: I50.9 - Heart failure, unspecified (2) Hypertension: Qualified Codes: I10 - Essential (primary) hypertension Rosie Nunez Apr 08, 2017 11:55
--- NOTE | 2017-04-08 13:26 | MB ---
cc: JOON ESCOTO M.D. DATE OF CONSULTATION 04/08/2017 HISTORY OF PRESENT ILLNESS Deborah Cheema is a 51-year-old patient with end-stage renal disease on hemodialysis. She also has a history of hypertension, COPD with longstanding smoking which she stopped two months ago, hyperlipidemia, bipolar disorder and anemia. She came in for shortness of breath and cough and was found to be in CHF. She has been getting regular dialysis and shortness of breath has markedly improved. This is the first time she apparently has been diagnosed with CHF. Her echo is abnormal and will be detailed later. She denies any anginal type pain. Denies syncope. She admits to dietary indiscretion with TV dinners, etc. PAST MEDICAL HISTORY 1. Hypertension. 2. End-stage renal disease. 3. Chronic anemia. 4. COPD. PAST SURGICAL HISTORY 1. She has an AV graft fistula overlying her left chest. 2. She had previous section. 3. She has had a previous ovarian cyst drainage. SOCIAL HISTORY She quit smoking two months ago; prior to that at least a pack a day. REVIEW OF SYSTEMS Notable primarily for the shortness of breath and she has had some vomiting. Remaining review of systems negative. FAMILY HISTORY Noncontributory. ALLERGIES None. MEDICATIONS Charted. PHYSICAL EXAMINATION GENERAL: Somewhat chronically ill-appearing white female. VITAL SIGNS: Charted. She has been markedly hypertensive, although it is improving. HEENT: Exam unremarkable. NECK: Reveals no JVD. CHEST: Diminished breath sounds bilaterally. CARDIAC EXAM: Normal first and second heart sounds. Regular rate and rhythm. Her AV graft fistula is overlying the heart but you can still appreciate it has probably a 2/6 systolic ejection murmur. ABDOMEN: Soft and nontender. EXTREMITIES: Reveal good peripheral pulses. LABORATORY DATA Her labs are charted. She has been mildly hyponatremic. She has had an echocardiogram Doppler study on the which shows preserved ejection fraction of 55%, moderate aortic valve regurgitation, mild tricuspid regurgitation. There is also moderate to severe pulmonary hypertension with an estimated right ventricular systolic pressure of 69 mmHg. CHEST X-RAY Charted. IMPRESSION AND RECOMMENDATIONS Acute diastolic CHF secondary to end-stage renal disease and dietary noncompliance. She does have moderate aortic regurgitation without any dilatation of left ventricle and I do not think this is the primary cause of her heart failure. The primary management at this point is controlling her blood pressure which is steadily improving and regular dialysis. I will be a available if there are any questions or problems that I can assist with. Thank you very much for asking me to see her. MD GEORGIE Galeana/EKATERINA /1:06 PM /1:12 PM
--- NOTE | 2017-04-08 16:58 | HHI.NPPN ---
Subjective History of Present Illness 51-year-old female with past medical history of hypertension, chronic obstructive pulmonary disease, end-stage renal disease on hemodialysis, hyperlipidemia, chronic anemia who was admitted with complaint of shortness of breath, cough, nausea and vomiting. I was called to see the patient for management of dialysis. The patient has been on hemodialysis Wednesday, Wednesday and Wednesday. Additional Remarks Patient is alert, feeling better, breathing improved, not in distress. Review of Systems General Constitutional: Fatigue Respiratory Lungs: SOB, Cough, Wheeze Cardiovascular Cardiac: Chest Pain, KEITH Objective Data Data Vital Signs Date Time Temp Pulse Resp B/P (MAP) Pulse Ox O2 Delivery O2 Flow Rate FiO2 04/08/17 12:00 98.0 74 20 151/67 (95) 98 04/08/17 08:32 95 21 04/08/17 08:08 85 04/08/17 08:00 98.6 74 18 153/69 (97) 96 04/08/17 04:00 Room Air 04/08/17 04:00 98.0 72 18 161/68 (99) 94 04/08/17 00:00 98.2 71 18 151/65 (93) 97 04/08/17 00:00 Room Air 04/07/17 21:08 98 04/07/17 20:00 Room Air 04/07/17 20:00 79 04/07/17 19:31 98.2 77 16 169/78 (108) 96 -: 04/06/17 0658 04/08/17 0655 Physical Exam General Appearance: No Acute Distress, Comfortable Eyes Eye Exam: Pupils Equal Throat Throat Exam: Oral Mucosa Lowgap & Moist Neck Neck Exam: Neck Supple Pulmonary Resp Exam: Breath Sounds Equal, No Distress, Sputum, Decreased Bases Cardiology CV Exam: Regular, Normal Sinus Rhythm Gastrointestinal/Abdomen GI Exam: Soft, Non-Tender, Bowel Sounds Present, Distended Extremeties Extremities Exam: Trace Edema Neurologic Neuro Exam: Alert, Awake Psychiatric Psych Exam: Appropriate Responses Assessment/Plan Assessment Summary: Anemia of CKD, Hypertension, End Stage Renal Disease Problem List: (1) Anemia ICD Codes: D64.9 - Anemia, unspecified Status: Acute (2) Bipolar 1 disorder, depressed ICD Codes: F31.9 - Bipolar disorder, unspecified Status: Chronic (3) COPD (chronic obstructive pulmonary disease) ICD Codes: J44.9 - Chronic obstructive pulmonary disease, unspecified Status: Chronic (4) CHF (congestive heart failure) ICD Codes: I50.9 - Heart failure, unspecified Status: Acute (5) Hypoxia ICD Codes: R09.02 - Hypoxemia Status: Acute (6) ESRD (end stage renal disease) on dialysis ICD Codes: N18.6 - End stage renal disease; Z99.2 - Dependence on renal dialysis Status: Acute Plan Now has no chest pain. BP is slightly elevated. Trop I was negative. Continue HD , MWF. Seen by cardiology, need better BP control. Increase Hydralazine to 50 mg . HD will be in AM. Problem Qualifiers (1) CHF (congestive heart failure): Qualified Codes: I50.9 - Heart failure, unspecified Jessica Colin MD Apr 08, 2017 16:58
[2017-04-08] MEDS: ACETAMINOPHEN 325 MG TAB PO PRN (21:06)
[2017-04-08] MEDS: traZODone HCL 100 MG TAB PO SCH (21:06)
[2017-04-08] MEDS: ATORVASTATIN 20 MG TAB PO SCH (21:06)
[2017-04-09] VITALS: BP 144/63; PULSE 70; RESP 16; TEMP 98.1; O2SAT 94
[2017-04-09] MEDS: RESP: ALBUTEROL CONC 2.5 MG/0.5 ML NEB NEB SCH ×2 (03:45→09:20)
[2017-04-09 03:49] VITALS: O2SAT 99
[2017-04-09 04:00] VITALS: BP 173/70; PULSE 73; RESP 16; TEMP 97.7; O2SAT 96
[2017-04-09] MEDS: hydrALAZINE HCL 25 MG TAB PO SCH (05:11)
--- NOTE | 2017-04-09 07:46 | HHI.FF ---
Face to Face Verification Diagnosis: (1) ESRD (end stage renal disease) (2) Hypoxia (3) COPD (chronic obstructive pulmonary disease) (4) ESRD (end stage renal disease) on dialysis (5) CHF (congestive heart failure) (6) Physical deconditioning (7) Hypertension Physical Therapy Order: Evaluate and Treat, Improve ambulation, Strength and gait training Home Health Nursing Order: Medical education Signs/symptoms of disease process CHF education Nursing assessment with vital signs I have seen patient Deborah Cheema on 04/09/17. My clinical findings support the need for the requested home health care services because: Ltd mobility - disease progression Patient has SOB Deconditioned w/ increased weakness Med compliance is questionable High risk of falls I certify that my clinical findings support that this patient is homebound because: Post-op weakness Hx COPD- exertion dyspnea/weakness Unsteady gait/balance Unsafe to leave home unassisted Unable to use public transportation Poor cardiac reserve Rosie Nunez Apr 09, 2017 07:46
[2017-04-09] MEDS ORDERED: HYDR-3799 PO (07:55)
[2017-04-09] MEDS ORDERED: CARV3.125 PO (07:55)
[2017-04-09] MEDS ORDERED: ATOR20TA15 PO (07:55)
[2017-04-09] MEDS ORDERED: AMLO10 PO (07:55)
[2017-04-09 08:00] VITALS: BP 164/70; PULSE 78; RESP 18; TEMP 98.3; O2SAT 94
[2017-04-09] MEDS: METOCLOPRAMIDE HCL 10 MG TAB PO SCH ×2 (08:00→12:58)
--- NOTE | 2017-04-09 08:29 | HHI.PR ---
Subjective Remarks ALERT NO SOB AT REST COULD NOT FOLLOWS INSTRUCTION FOR PFT Objective Vital Signs Date Time Temp Pulse Resp B/P (MAP) Pulse Ox O2 Delivery O2 Flow Rate FiO2 04/09/17 04:00 97.7 73 16 173/70 (104) 96 04/09/17 03:49 99 04/09/17 00:00 98.1 70 16 144/63 (90) 94 04/08/17 21:23 96 21 04/08/17 20:00 97.8 79 18 162/70 (100) 96 04/08/17 20:00 81 04/08/17 19:00 98 Room Air 04/08/17 16:00 98.8 81 18 148/67 (94) 96 04/08/17 12:00 98.0 74 20 151/67 (95) 98 04/08/17 08:32 95 21 I/O 04/08/17 04/08/17 04/08/17 04/09/17 04/09/17 04/09/17 07:00 15:00 23:00 07:00 15:00 23:00 Intake Total 220 ml 600 ml 240 ml Output Total 250 ml 400 ml Balance -30 ml 600 ml -160 ml Intake Oral 220 ml 600 ml 240 ml IV Total 0 ml Output Urine Total 250 ml 400 ml # Voids 3 # Bowel Movements 0 1 0 Result Diagram: 04/06/17 0658 04/08/17 0655 Objective Remarks GENERAL: SKIN: Warm and dry. HEAD: Atraumatic. Normocephalic. EYES: Pupils equal and round. No scleral icterus. No injection or drainage. ENT: No nasal bleeding or discharge. Mucous membranes pink and moist. NECK: Trachea midline. No JVD. CARDIOVASCULAR: Regular rate and rhythm. RESPIRATORY: No accessory muscle use. Clear to auscultation. Breath sounds equal bilaterally. GASTROINTESTINAL: Abdomen soft, non-tender, nondistended. Hepatic and splenic margins not palpable. MUSCULOSKELETAL: Extremities without clubbing, cyanosis, or edema. No obvious deformities. NEUROLOGICAL: Awake and alert. No obvious cranial nerve deficits. Motor grossly within normal limits. Five out of 5 muscle strength in the arms and legs. Normal speech. PSYCHIATRIC: Appropriate mood and affect; insight and judgment normal. Assessment and Plan Assessment and Plan ASSESSMENT COPD PULMONARY HTN ESRD ON DIALYSIS ANEMIA V/Q SCAN NO PE CT CHEST NO ILD OR MASS PLAN BRONCHODILATOR THERAPY INCREASE ACTRIVITY Barbara Jimenez MD Apr 09, 2017 08:29
[2017-04-09 08:40] LABS: BICARBONATE 30.6 MEQ/L (21.0-32.0); POTASSIUM 4.8 MEQ/L (3.5-5.1)
[2017-04-09] MEDS: hydrOXYzine HCL 10 MG TAB PO SCH (09:00)
[2017-04-09] MEDS: SODIUM CHLORIDE 0.9% FLUSH 10 ML FLUSH IV FLUSH SCH (09:00)
[2017-04-09] MEDS: POLYETHYLENE GLYCOL 17 GM PKG PO SCH (09:00)
[2017-04-09] MEDS: HEPARIN SODIUM - SQ 10,000 UNITS/ML VIAL SQ SCH (11:00)
[2017-04-09 12:00] VITALS: BP 152/67; PULSE 80; RESP 18; TEMP 97.9; O2SAT 94
--- NOTE | 2017-04-09 12:06 | HHI.DCPOC ---
Discharge Care Plan Diagnosis: (1) Aortic regurgitation (2) Diastolic CHF, acute (3) ESRD (end stage renal disease) on dialysis (4) Physical deconditioning (5) Hypertension (6) Hypoxia (7) CHF (congestive heart failure) (8) Pulmonary hypertension (9) COPD (chronic obstructive pulmonary disease) (10) Hyponatremia (11) Anemia (12) Bipolar 1 disorder, depressed Goals to Promote Your Health * To prevent worsening of your condition and complications * To maintain your health at the optimal level Directions to Meet Your Goals Please do not smoke. Please refrain from drinking alcohol. Please maintain a low salt, fluid restricted diet - limit yourself to 2gm of sodium daily and 2L of fluid daily. Please record daily weights and contact your PCP if your weight increases more than 2lb in 2 days or if you notice increased swelling in your belly, legs or feet or if you develop chest pain or increased shortness of breath. Please keep your regular dialysis appointments on Wednesday, Wednesday and Fridays. Take your medications as prescribed Follow your dietary instruction Follow activity as directed Keep your appointments as scheduled Take your immunizations and boosters as scheduled If your symptoms worsen call your PCP, if no PCP go to Urgent Care Center or Emergency Room Smoking is Dangerous to Your Health. Avoid second hand smoke Call the 24-hour hour crisis hotline for domestic abuse at Rosie Nunez Apr 09, 2017 12:06
--- NOTE | 2017-04-09 12:13 | HHI.DS ---
Discharge Summary Admission Date Apr 04, 2017 at 22:50 Discharge Date: Apr 09, 2017 Admitting Diagnosis CHF, ESRD, HYPONATREMIA, HYPOXIA (1) Diastolic CHF, acute ICD Code: I50.31 - Acute diastolic (congestive) heart failure Status: Acute (2) CHF (congestive heart failure) ICD Code: I50.9 - Heart failure, unspecified Status: Acute (3) Hypertension ICD Code: I10 - Essential (primary) hypertension Status: Chronic (4) ESRD (end stage renal disease) on dialysis ICD Code: N18.6 - End stage renal disease; Z99.2 - Dependence on renal dialysis Status: Acute (5) Hypoxia ICD Code: R09.02 - Hypoxemia Status: Acute (6) Pulmonary hypertension ICD Code: I27.2 - Other secondary pulmonary hypertension Status: Acute (7) Bipolar disorder ICD Code: F31.9 - Bipolar disorder, unspecified Status: Chronic (8) Aortic regurgitation ICD Code: I35.1 - Nonrheumatic aortic (valve) insufficiency (9) Physical deconditioning ICD Code: R53.81 - Other malaise Status: Acute (10) COPD (chronic obstructive pulmonary disease) ICD Code: J44.9 - Chronic obstructive pulmonary disease, unspecified Status: Chronic (11) Bipolar 1 disorder, depressed ICD Code: F31.9 - Bipolar disorder, unspecified Status: Chronic (12) Hyponatremia ICD Code: E87.1 - Hypo-osmolality and hyponatremia Status: Acute (13) Anemia ICD Code: D64.9 - Anemia, unspecified Status: Acute Procedures Hemodialysis Brief History - From Admission 51-year-old female with a medical history significant for COPD, end-stage renal disease on hemodialysis, COPD, untreated hypertension presents to the emergency room with multiple complaints including shortness of breath, nausea, vomiting, and fatigue. The patient reports her symptoms started 3 days ago. She is a very poor historian and could not elaborate. She denies any fever or chills. She reports that she has been coughing. She reports compliance with dialysis. She is due for dialysis tomorrow. CBC/BMP: 04/06/17 0658 04/09/17 0653 Significant Findings Laboratory Tests Test 04/08/17 06:55 04/09/17 06:53 Blood Urea Nitrogen 29 MG/DL (7-18) 45 MG/DL (7-18) Creatinine 3.63 MG/DL (0.50-1.00) 4.91 MG/DL (0.50-1.00) Sodium Level 134 MEQ/L (136-145) 129 MEQ/L (136-145) Chloride Level 95 MEQ/L (98-107) 92 MEQ/L (98-107) Carbon Dioxide Level 33.8 MEQ/L (21.0-32.0) Estimat Glomerular Filtration Rate 13 ML/MIN (>89) 9 ML/MIN (>89) Imaging Last Impressions Lung Scan-VQ Nuclear Medicine 04/07/17 0000 Signed Impressions: Service Date/Time: Friday, April 07, 2017 14:05 - CONCLUSION: 1. Perfusion portion of the examination is within normal limits. No findings to suggest pulmonary embolus identified. Navneet Parmar MD Chest X-Ray 04/07/17 0000 Signed Impressions: Service Date/Time: Friday, April 07, 2017 14:02 - CONCLUSION: 1. Right basilar consolidation and effusion improving compared to prior. Navneet Parmar MD Chest CT 04/07/17 0000 Signed Impressions: Service Date/Time: Friday, April 07, 2017 12:22 - CONCLUSION: Small right pleural effusion with minimal compressive changes right lower lobe. Clinton Parmar MD FACR PE at Discharge GENERAL: Well-nourished, well-developed patient in NAD. Awake and alert. Sitting up in bed eating breakfast. SKIN: Warm and dry. HEAD: Normocephalic. Atraumatic. EYES: EOMI. No scleral icterus. No injection or drainage. ENT: No nasal bleeding or discharge. Mucous membranes pink and moist. NECK: Supple. Trachea midline. CARDIOVASCULAR: Regular rate and rhythm. S1, S2 noted. No murmur appreciated. RESPIRATORY: No accessory muscle use. Clear to auscultation. Breath sounds equal bilaterally. GASTROINTESTINAL: Abdomen soft, non-tender, nondistended. Normoactive bowel sounds x4. MUSCULOSKELETAL: Extremities without clubbing, cyanosis, or edema. NEUROLOGICAL: Awake and alert. Able to move all extremities spontaneously. Nonfocal. Normal speech. Pt update on day of discharge Patient seen and examined. Patient states she feels well and would like to go home. Denies any shortness of breath. Denies any chest pain. Completed home oxygen walk test and did not require home oxygen. Face to face completed for [facility] PT and nursing but patient declined both per case management. Hospital Course 51-year-old female with end-stage renal disease on dialysis, bipolar disorder, on controlled hypertension presents with worsening shortness of breath, fatigue , nausea. Evidence of congestive heart failure. No known history of CHF per the patient. LVEF on echocardiogram in October of 2016 preserved at 60%. Moderate to severe aortic valve regurgitation and there was mild tricuspid valve regurgitation. Cardiac enzymes negative. Noted to have hyponatremia. Symptoms most likely secondary to being volume overloaded. Noncompliant with low sodium diet. Extensive education given on low sodium diet. Patient continued on home bipolar medications. Patient started on Coreg and Norvasc. BP still elevated necessitating addition of Hydralazine. Repeat echo obtained showing moderate to severe pulmonary HTN. Patient seen in consultation by pulmonary medicine. CT chest and V/Q scan were obtained and negative for PE. PFT ordered but patient unable to follow instructions to complete the study. Cardiology consulted and recommended strict BP control. Hydralazine dose increased. PT eval/tx obtained and recommended home with [facility] PT. Patient seen in consultation by Nephrology to continue on regular MWF HD treatment. Patient satting well on room air. Home oxygen walk test performed and patient did not require home oxygen at discharge. Patient cleared for discharge. CM consulted to assist with discharge planning. Patient refused home health care. Patient instructed on dietary restrictions. Patient to follow up with PCP, Cardiology and Pulmonary medicine as outpatient. Patient also to resume HD MWF. Pt Condition on Discharge: Stable Discharge Disposition: Discharge Home Discharge Time: > 30 minutes Discharge Instructions DIET: Follow Instructions for: Heart Healthy Diet, Renal Failure Diet, Low Sodium Diet Additional Diet Instructions: Please limit yourself to 2gm sodium daily and 2L of fluid daily Activities you can perform: Regular-No Restrictions Follow up Referrals: Cardiology - 2 Weeks Nephrology - 1 Week PCP Follow-up - 1 Week Pulmonology - 1 Week New Medications: Walker with Front Wheels (Walker with Front Wheels) 1 Mis Mis EA .ROUTE DIRECTED, #1 0 Refills Amlodipine (Norvasc) 10 Mg Tab 10 MG PO DAILY for Blood Pressure Management for 30 Days, #30 TAB Carvedilol (Coreg) 3.125 Mg Tab 3.125 MG PO BID for Blood Pressure Management for 30 Days, #60 TAB Hydralazine HCl (Hydralazine HCl) 25 Mg Tablet 50 MG PO Q8HR for Blood Pressure Management for 30 Days, #90 TAB Continued Medications: Albuterol Neb (Albuterol Neb) 2.5 Mg/0.5 Ml Neb 2.5 MG NEB Q6HR NEB, BOX Note: The Albuterol Sulfate Inhalation Solution is concentrated and must be diluted. Read complete instructions carefully before using. Allopurinol (Allopurinol) 300 Mg Tab 300 MG PO DAILY for Gout, #30 TAB 0 Refills Atorvastatin (Atorvastatin) 20 Mg Tab 20 MG PO HS for Cholesterol Management, #30 TAB 0 Refills (This prescription has been renewed) B-Complex W/ C & Folic Acid (Nephrocaps) 1 Cap 1 CAP PO DAILY for Nutritional Supplement, #30 CAP 0 Refills If on dialysis, take after treatment. Calcium Polycarbophil (Fibercon) 625 Mg Tab 1250 MG PO Q12HR PRN for CONSTIPATION, #60 TAB 0 Refills Cinacalcet (Sensipar) 60 Mg Tab 60 MG PO DAILY, #30 TAB 0 Refills Escitalopram (Lexapro) 10 Mg Tab 20 MG PO DAILY for health, #30 TAB 0 Refills Ferric Citrate (Auryxia) 210 Mg Tab 210 MG PO 2-3 TIMES A DAY Take with meals 2-3 times a day Gabapentin (Gabapentin) 100 Mg Cap 200 MG PO BID, #60 CAP 0 Refills Hydroxyzine HCl (Hydroxyzine HCl) 10 Mg Tab 10 MG PO BID, TAB 0 Refills Lorazepam (Ativan) 1 Mg Tab 1 MG PO DAILY PRN for ANXIETY AND/OR AGITATION, TAB 0 Refills Lurasidone (Latuda) 20 Mg Tab 20 MG PO DAILY for health, #30 TAB 0 Refills Metoclopramide (Reglan) 5 Mg Tab 5 MG PO TIDAC, TAB 0 Refills Omeprazole Magnesium (Prilosec) 20 Mg Tab Polyethylene Glycol 3350 Powder (Polyethylene Glycol 3350 Powder) 17 Gm Pow 17 GM PO DAILY for Constipation for 14 Days, BOTTLE Sennosides-Docusate Sodium (Katalina-Colace) 8.6-50 Mg Tab 1 TAB PO BID for Constipation, #60 TAB 0 Refills Sevelamer Carbonate (Renvela) 800 Mg Tab 800 MG PO TID for Control phosphorous levels, #90 TAB 0 Refills Trazodone (Trazodone) 50 Mg Tab 75 MG PO HS, #60 TAB 1 Refill Trazodone (Trazodone) 50 Mg Tab 100 MG PO HS for health for 30 Days, TAB Discontinued Medications: Losartan (Losartan) 50 Mg Tab 50 MG PO DAILY for Blood Pressure Management, #30 TAB 0 Refills Rosie Nunez Apr 09, 2017 12:13
[2017-04-09] MEDS: ALLOPURINOL 100 MG TAB PO SCH (12:59)
[2017-04-09] MEDS: LURASIDONE 40 MG TAB PO SCH (12:59)
[2017-04-09] MEDS: CARVEDILOL 3.125 MG TAB PO SCH (12:59)
[2017-04-09] MEDS: ESCITALOPRAM OXALATE 20 MG TAB PO SCH (12:59)
[2017-04-09] MEDS: DOCUSATE SODIUM 50 MG/SENNA 8.6 MG TAB PO SCH (12:59)
--- NOTE | 2017-04-09 15:49 | HHI.NPPN ---
Subjective History of Present Illness 51-year-old female with past medical history of hypertension, chronic obstructive pulmonary disease, end-stage renal disease on hemodialysis, hyperlipidemia, chronic anemia who was admitted with complaint of shortness of breath, cough, nausea and vomiting. I was called to see the patient for management of dialysis. The patient has been on hemodialysis Wednesday, Wednesday and Wednesday. Additional Remarks Patient is alert, not in distress, clinically same. Review of Systems General Constitutional: Fatigue Respiratory Lungs: SOB, Cough, Wheeze Cardiovascular Cardiac: Chest Pain, KEITH Objective Data Data 04/09/17 04/10/17 19:00 07:00 Output Total 3000 ml Balance -3000 ml Hemodialysis 3000 ml Vital Signs Date Time Temp Pulse Resp B/P (MAP) Pulse Ox O2 Delivery O2 Flow Rate FiO2 04/09/17 12:00 97.9 80 18 152/67 (95) 94 04/09/17 08:00 98.3 78 18 164/70 (101) 94 04/09/17 04:00 97.7 73 16 173/70 (104) 96 04/09/17 03:49 99 04/09/17 00:00 98.1 70 16 144/63 (90) 94 04/08/17 21:23 96 21 04/08/17 20:00 97.8 79 18 162/70 (100) 96 04/08/17 20:00 81 04/08/17 19:00 98 Room Air 04/08/17 16:00 98.8 81 18 148/67 (94) 96 -: 04/06/17 0658 04/09/17 0653 Physical Exam General Appearance: No Acute Distress, Comfortable Eyes Eye Exam: Pupils Equal Throat Throat Exam: Oral Mucosa [place] & Moist Neck Neck Exam: Neck Supple Pulmonary Resp Exam: Breath Sounds Equal, No Distress, Sputum, Decreased Bases Cardiology CV Exam: Regular, Normal Sinus Rhythm Gastrointestinal/Abdomen GI Exam: Soft, Non-Tender, Bowel Sounds Present, Distended Extremeties Extremities Exam: Trace Edema Neurologic Neuro Exam: Alert, Awake Psychiatric Psych Exam: Appropriate Responses Assessment/Plan Assessment Summary: Anemia of CKD, Hypertension, End Stage Renal Disease Problem List: (1) Anemia ICD Codes: D64.9 - Anemia, unspecified Status: Acute (2) Bipolar 1 disorder, depressed ICD Codes: F31.9 - Bipolar disorder, unspecified Status: Chronic (3) COPD (chronic obstructive pulmonary disease) ICD Codes: J44.9 - Chronic obstructive pulmonary disease, unspecified Status: Chronic (4) CHF (congestive heart failure) ICD Codes: I50.9 - Heart failure, unspecified Status: Acute (5) Hypoxia ICD Codes: R09.02 - Hypoxemia Status: Acute (6) ESRD (end stage renal disease) on dialysis ICD Codes: N18.6 - End stage renal disease; Z99.2 - Dependence on renal dialysis Status: Acute Plan Now has no chest pain. BP is slightly elevated. Trop I was negative. Continue HD , MWF. Seen by cardiology, need better BP control. BP is better Hydralazine was increased to 50 mg . HD to continue MWF. Problem Qualifiers (1) CHF (congestive heart failure): Qualified Codes: I50.9 - Heart failure, unspecified Jessica Colin MD Apr 09, 2017 15:49
== END 2017-04-09 15:48 | disposition home or self-care (01) | DRG 291 ==
LOC: NEPC 20:54 → NEDA 22:50 → N04A 04-05 00:09
PROVIDERS: ADMIT Family Medicine; ATTEND Family Medicine
PROC: 5A1D60Z (ICD-10-PCS; principal; 2017-04-05)
DX: I50.31 Acute diastolic (congestive) heart failure (principal); N18.6 End stage renal disease; I12.0 Hypertensive chronic kidney disease with stage 5 chronic kidney disease or end stage renal disease; I27.2 Other secondary pulmonary hypertension; E87.1 Hypo-osmolality and hyponatremia; Z99.2 Dependence on renal dialysis; R09.02 Hypoxemia; F31.9 Bipolar disorder, unspecified; I35.1 Nonrheumatic aortic (valve) insufficiency; J44.9 Chronic obstructive pulmonary disease, unspecified; Z91.11 Patient's noncompliance with dietary regimen; E78.5 Hyperlipidemia, unspecified; D63.1 Anemia in chronic kidney disease; Z87.891 Personal history of nicotine dependence; Z91.14 Patient's other noncompliance with medication regimen; K59.00 Constipation, unspecified; R51 Headache
CPT/HCPCS: 36600; 71010; 71020; 71250; 78582; 80048; 80053; 81001; 82550; 82805; 83735; 83880; 84443; 84484; 85025; 85027; 87040; 87804; 90686; 90935; 93005; 93306; 94150; 94620; 94640; 94664; 96374; 96375; A9540; A9567; J0360; J1644; J1940; J2930; J7030; J7611; Q2038

== ENCOUNTER 2017-04-19 16:33 | Emergency (ER) | payer MEDICARE, OTHER ==
[~2017-04-19] VITALS: Ht 142.2 cm; Wt 60.0 kg
[~2017-04-19 16:33] MED LIST changes: +AMLO10 PO; +B-CO1CAP9 PO; +CARV3.125 PO; -FERRIC CITRATE 1 GM PO SCH; +GABA100C4 PO; +HYDR-3799 PO; +PRIL20TA2; +SENS60TA PO; +SEVEL800 PO; +WALKER WHEELS/F1 MIS
[2017-04-19 16:38] VITALS: BP 160/71; PULSE 84; RESP 16; TEMP 98.4; O2SAT 99
--- NOTE | 2017-04-19 17:22 | PD ---
HPI Chief Complaint: Injury Time Seen by Provider: 17:15 Travel History International Travel<30 days: No Contact w/Intl Traveler<30days: No Traveled to known affect area: No History of Present Illness HPI 51-year-old female presents emergency Department with complaint of right knee pain since Wednesday. Denies injury. Denies paresthesias, loss of sensation, decreased range of motion, decreased strength to the affected extremity. He is ambulatory in the affected extremity. Denies fevers, vomiting. Has not taken any medications or tried any treatment to alleviate her symptoms. Pain is aggravated with palpation. Symptoms are mild in severity. No known allergies. Has no other medical complaints. No other modifying factors or associated signs and symptoms. History Past Medical Histgory Menopausal: Yes Hx Cancer: No Social History Alcohol Use: No Tobacco Use: Yes (12ppd) Allergies-Medications (Allergen,Severity, Reaction): Coded Allergies: No Known Allergies (Unverified , 12/01/16) Reported Meds & Prescriptions Reported Meds & Active Scripts Active Norvasc (Amlodipine Besylate) 10 Mg Tab 10 Mg PO DAILY 30 Days Coreg (Carvedilol) 3.125 Mg Tab 3.125 Mg PO BID 30 Days Hydralazine HCl 25 Mg Tablet 50 Mg PO Q8HR 30 Days Atorvastatin (Atorvastatin Calcium) 20 Mg Tab 20 Mg PO HS Walker with Front Wheels (Device) 1 Mis Mis Ea .ROUTE DIRECTED Trazodone (Trazodone HCl) 50 Mg Tab 100 Mg PO HS 30 Days Latuda (Lurasidone) 20 Mg Tab 20 Mg PO DAILY Lexapro (Escitalopram Oxalate) 10 Mg Tab 20 Mg PO DAILY Fibercon (Calcium Polycarbophil) 625 Mg Tab 1,250 Mg PO Q12HR PRN Polyethylene Glycol 3350 Powder (Polyethylene Glycol) 17 Gm Pow 17 Gm PO DAILY 14 Days Katalina-Colace (Sennosides-Docusate Sodium) 8.6-50 Mg Tab 1 Tab PO BID Oxygen tank (Oxygen) 1 Ea Tank 2 Liter JOSIAH.CANULA CONTINUOUS Oxygen Concentrator Portable Gaseous 2 L/min via Nasal Cannula Continuous For 99 months Trazodone (Trazodone HCl) 50 Mg Tab 75 Mg PO HS Reported Prilosec (Omeprazole Magnesium) 20 Mg Tab Renvela (Sevelamer Carbonate) 800 Mg Tab 800 Mg PO TID Nephrocaps (B-Complex W/ C & Folic Acid) 1 Cap 1 Cap PO DAILY If on dialysis, take after treatment. Gabapentin 100 Mg Cap 200 Mg PO BID Sensipar (Cinacalcet) 60 Mg Tab 60 Mg PO DAILY Allopurinol 300 Mg Tab 300 Mg PO DAILY Albuterol Neb (Albuterol Sulfate) 2.5 Mg/0.5 Ml Neb 2.5 Mg NEB Q6HR NEB Note: The Albuterol Sulfate Inhalation Solution is concentrated and must be diluted. Read complete instructions carefully before using. Hydroxyzine HCl 10 Mg Tab 10 Mg PO BID Ativan (Lorazepam) 1 Mg Tab 1 Mg PO DAILY PRN Auryxia (Ferric Citrate) 210 Mg Tab 210 Mg PO 2-3 TIMES A DAY Take with meals 2-3 times a day Reglan (Metoclopramide HCl) 5 Mg Tab 5 Mg PO TIDAC Review of Systems Except as stated in HPI: all other systems reviewed are Neg Physical Exam Narrative GENERAL: Well-nourished, well-developed female patient, in no acute distress; afebrile, nontoxic-appearing SKIN: Warm and dry. Patient has 3 lesions on the skin of the right knee and states they've been there for many years; they are without erythema, edema, drainage; no signs of infection. HEAD: Atraumatic. Normocephalic. EYES: Pupils equal and round. No scleral icterus. No injection or drainage. ENT: Mucosa pink and moist. Airway patent. NECK: Trachea midline. CARDIOVASCULAR: Regular rate. RESPIRATORY: No accessory muscle use. GASTROINTESTINAL: Obese. MUSCULOSKELETAL: Right knee nonedematous, nonerythematous, and without ecchymosis; full range of motion and flexion to 90; point tenderness to the anterior aspect below the patella; joint stable with negative drawer test; no obvious deformity. Right Lower extremity is supple and non-tense with 2+ pedal pulse and sensory intact and without erythema or edema. Ambulatory in the room with normal gait. No cyanosis. No clubbing. No edema. NEUROLOGICAL: Awake and alert. Oriented 3. No obvious cranial nerve deficits. Motor grossly within normal limits. Normal speech. PSYCHIATRIC: Appropriate mood and affect; insight and judgment normal. Data Data Last Documented VS Vital Signs Date Time Temp Pulse Resp B/P (MAP) Pulse Ox O2 Delivery O2 Flow Rate FiO2 04/19/17 16:38 98.4 84 16 160/71 100 99 MDM Medical Screen Exam Complete: Yes Emergency Medical Condition: No Differential Diagnosis Knee pain Narrative Course 51-year-old female with right knee pain since Wednesday. Denies injury. The knee is without erythema, edema. I do not suspect fracture, dislocation and feel that imaging is not necessary at this time. The patient is ambulatory with a normal gait in the room. Vital signs are stable and the patient is stable for outpatient follow-up and treatment. The patient has no urgent or emergent medical complaints. There is no emergent or urgent medical need at this time. I instructed the patient to follow up with their primary care provider. A medical screening exam was performed: At the time of evaluation the presenting medical condition was determined not to be of an emergent nature. The patient was given the option of receiving additional care, but declined. Patient was given options for additional community resources from which to obtain care. The Patient Has Been advised to seek medical attention for their presenting complaint. The patient has been advised to return to the ER at any time if an emergent condition develops. Primary Impression: Encounter for medical screening examination Condition: Stable Lia Hernández Apr 19, 2017 17:21
== END 2017-04-19 17:30 | disposition left against medical advice (07) ==
LOC: NEPK 16:33
DX: M25.561 Pain in right knee (principal); F17.200 Nicotine dependence, unspecified, uncomplicated
CPT/HCPCS: 99281

== ENCOUNTER 2017-04-26 00:50 | Emergency (ER) | payer MEDICARE, OTHER ==
[~2017-04-26] VITALS: Ht 142.2 cm; Wt 50.0 kg
[2017-04-26 00:57] VITALS: BP 148/63; PULSE 67; RESP 21; TEMP 97.9; O2SAT 100
--- NOTE | 2017-04-26 01:01 | PD ---
HPI Chief Complaint: SOB Time Seen by Provider: 00:58 Travel History International Travel<30 days: No Contact w/Intl Traveler<30days: No Traveled to known affect area: No History of Present Illness HPI C/O SOB, WORSENING OVER LAST DAY OR SO, STATED THAT SHE IS A M/W/ DIALYSIS PATIENT OF DR CROWLEY. SHE ADMITTED MISSING DIALYSIS LAST WEDNESDAY. SPENT WEEKEND WITH FRIENDS HAVING OCCASIONAL ALCOHOL, DENIES ANY DEVELOPMENT OF HALL/CP/ABD PAIN /N/V/D/FEVER/COUGH/RUNNY NOSE. BUT DOES STATE SOME WHEEZING/SOB. PATIENT USED HER OWN ALBUTEROL PUMP PRIOR TO ARRIVAL. PRESENTLY PATIENT HAS NO SOB SYMPTOMS ANYMORE. NO AGGRAVATING FACTORS CHART REVIEWED AND RN NOTES REVIEWED NKDA PCP:CAN'T RECALL RENAL DR CROWLEY PMH: ESRD, HTN, PFSH Past Medical History Hx Anticoagulant Therapy: Yes (PLAVIX) Asthma: No Autoimmune Disease: No Blood Disorders: No Bipolar Disorder: Yes (A/V HALLUCINATION) Anxiety: Yes Depression: Yes Heart Rhythm Problems: Yes (palpitations) Cancer: No Cardiovascular Problems: Yes High Cholesterol: Yes Chest Pain: Yes Congestive Heart Failure: Yes (new onset ) COPD: Yes Cerebrovascular Accident: No Diabetes: No Dialysis: Yes (WEDNESDAYS AND FRIDAYS) Diminished Hearing: No Endocrine: No Gastrointestinal Disorders: No GERD: Yes Genitourinary: Yes Hiatal Hernia: No Hypertension: Yes Immune Disorder: No Implanted Vascular Access Dvce: Yes Kidney Stones: No Musculoskeletal: Yes Neurologic: Yes Psychiatric: Yes Reproductive: No Respiratory: Yes (EMPHYSEMA AND COPD) Renal Failure: Yes (dialysis -w-) Schizophrenia: Yes Sleep Apnea: No Thyroid Disease: No Ulcer: No Menopausal: Yes : 4 Para: 3 : 1 Past Surgical History AICD: No Arteriovenous Shunt: Yes (left chest) Body Medical Devices: A/V SHUNT- LEFT CHEST Section: Yes Ear Surgery: Yes (pe tubes as a child) Gynecologic Surgery: Yes ( X 3 - ) Joint Replacement: Yes (right knee ) Oral Surgery: Yes (teeth pulled) Pacemaker: No Other Surgery: Yes (cyst ovary drained/ AV- SHUNT- LEFT CHEST-) Social History Alcohol Use: No Tobacco Use: Yes (1/2ppd) Substance Use: Yes (8 years ago crack,marijuana ) Allergies-Medications (Allergen,Severity, Reaction): Coded Allergies: No Known Allergies (Unverified , 04/26/17) Reported Meds & Prescriptions Reported Meds & Active Scripts Active Norvasc (Amlodipine Besylate) 10 Mg Tab 10 Mg PO DAILY 30 Days Coreg (Carvedilol) 3.125 Mg Tab 3.125 Mg PO BID 30 Days Hydralazine HCl 25 Mg Tablet 50 Mg PO Q8HR 30 Days Atorvastatin (Atorvastatin Calcium) 20 Mg Tab 20 Mg PO HS Walker with Front Wheels (Device) 1 Mis Mis Ea .ROUTE DIRECTED Trazodone (Trazodone HCl) 50 Mg Tab 100 Mg PO HS 30 Days Latuda (Lurasidone) 20 Mg Tab 20 Mg PO DAILY Lexapro (Escitalopram Oxalate) 10 Mg Tab 20 Mg PO DAILY Fibercon (Calcium Polycarbophil) 625 Mg Tab 1,250 Mg PO Q12HR PRN Polyethylene Glycol 3350 Powder (Polyethylene Glycol) 17 Gm Pow 17 Gm PO DAILY 14 Days Katalina-Colace (Sennosides-Docusate Sodium) 8.6-50 Mg Tab 1 Tab PO BID Oxygen tank (Oxygen) 1 Ea Tank 2 Liter JOSIAH.CANULA CONTINUOUS Oxygen Concentrator Portable Gaseous 2 L/min via Nasal Cannula Continuous For 99 months Reported Prilosec (Omeprazole Magnesium) 20 Mg Tab Renvela (Sevelamer Carbonate) 800 Mg Tab 800 Mg PO TID Nephrocaps (B-Complex W/ C & Folic Acid) 1 Cap 1 Cap PO DAILY If on dialysis, take after treatment. Gabapentin 100 Mg Cap 200 Mg PO BID Sensipar (Cinacalcet) 60 Mg Tab 60 Mg PO DAILY Allopurinol 300 Mg Tab 300 Mg PO DAILY Albuterol Neb (Albuterol Sulfate) 2.5 Mg/0.5 Ml Neb 2.5 Mg NEB Q6HR NEB Note: The Albuterol Sulfate Inhalation Solution is concentrated and must be diluted. Read complete instructions carefully before using. Hydroxyzine HCl 10 Mg Tab 10 Mg PO BID Ativan (Lorazepam) 1 Mg Tab 1 Mg PO DAILY PRN Auryxia (Ferric Citrate) 210 Mg Tab 210 Mg PO 2-3 TIMES A DAY Take with meals 2-3 times a day Reglan (Metoclopramide HCl) 5 Mg Tab 5 Mg PO TIDAC Review of Systems Except as stated in HPI: all other systems reviewed are Neg General / Constitutional: No: Fever Eyes: No: Visual changes HENT: No: Headaches Cardiovascular: No: Chest Pain or Discomfort Respiratory: Positive: Shortness of Breath Gastrointestinal: No: Abdominal Pain Genitourinary: No: Dysuria Musculoskeletal: No: Pain Skin: No Rash Neurologic: No: Weakness Psychiatric: No: Depression Endocrine: No: Polydipsia Hematologic/Lymphatic: No: Easy Bruising Physical Exam Narrative GENERAL: SKIN: Warm and dry. HEAD: Atraumatic. Normocephalic. EYES: Pupils equal and round. No scleral icterus. No injection or drainage. ENT: No nasal bleeding or discharge. Mucous membranes pink and moist. NECK: Trachea midline. No JVD. CARDIOVASCULAR: Regular rate and rhythm. SYSTOLIC MURMUR HEARD RESPIRATORY: No accessory muscle use. Clear to auscultation EXCEPT FOR FINE RALES AT ANGELICA BASES. Breath sounds equal bilaterally. GASTROINTESTINAL: Abdomen soft, non-tender, nondistended. Hepatic and splenic margins not palpable. MUSCULOSKELETAL: Extremities without clubbing, cyanosis, or edema. No obvious deformities. NEUROLOGICAL: Awake and alert. No obvious cranial nerve deficits. Motor grossly within normal limits. Five out of 5 muscle strength in the arms and legs. Normal speech. PSYCHIATRIC: Appropriate mood and affect; insight and judgment normal. Data Data Last Documented VS Vital Signs Date Time Temp Pulse Resp B/P (MAP) Pulse Ox O2 Delivery O2 Flow Rate FiO2 04/26/17 09:26 Orders Orders Complete Blood Count With Diff (04/26/17 01:01) Comprehensive Metabolic Panel (04/26/17 01:01) B-Type Natriuretic Peptide (04/26/17 01:01) Act Partial Throm Time (Ptt) (04/26/17 01:01) Prothrombin Time / Inr (Pt) (04/26/17 01:01) Ckmb (Isoenzyme) Profile (04/26/17 01:01) Troponin I (04/26/17 01:01) Iv Access Insert/Monitor (04/26/17 01:01) Electrocardiogram (04/26/17 01:01) Ecg Monitoring (04/26/17 01:01) Oximetry (04/26/17 01:01) Oxygen Administration (04/26/17 01:01) Chest, Single Ap (04/26/17 01:01) Sodium Chloride 0.9% Flush (Ns Flush) (04/26/17 01:15) Resp Bipap / Cpap Non Invas Vt (04/26/17 01:01) Ed Discharge Order (04/26/17 03:05) Labs Laboratory Tests Test 04/26/17 01:10 White Blood Count 5.5 TH/MM3 Red Blood Count 3.13 MIL/MM3 Hemoglobin 9.2 GM/DL Hematocrit 28.3 % Mean Corpuscular Volume 90.4 FL Mean Corpuscular Hemoglobin 29.2 PG Mean Corpuscular Hemoglobin Concent 32.3 % Red Cell Distribution Width 18.3 % Platelet Count 180 TH/MM3 Mean Platelet Volume 8.5 FL Neutrophils (%) (Auto) 72.7 % Lymphocytes (%) (Auto) 16.1 % Monocytes (%) (Auto) 10.0 % Eosinophils (%) (Auto) 0.5 % Basophils (%) (Auto) 0.7 % Neutrophils # (Auto) 4.0 TH/MM3 Lymphocytes # (Auto) 0.9 TH/MM3 Monocytes # (Auto) 0.6 TH/MM3 Eosinophils # (Auto) 0.0 TH/MM3 Basophils # (Auto) 0.0 TH/MM3 CBC Comment DIFF FINAL Differential Comment Prothrombin Time 11.4 SEC Prothromb Time International Ratio 1.0 RATIO Activated Partial Thromboplast Time 22.6 SEC Blood Urea Nitrogen 57 MG/DL Creatinine 7.84 MG/DL Random Glucose 97 MG/DL Total Protein 7.1 GM/DL Albumin 3.5 GM/DL Calcium Level 8.2 MG/DL Alkaline Phosphatase 210 U/L Aspartate Amino Transf (AST/SGOT) 34 U/L Alanine Aminotransferase (ALT/SGPT) 39 U/L Total Bilirubin 0.6 MG/DL Sodium Level 129 MEQ/L Potassium Level 4.9 MEQ/L Chloride Level 93 MEQ/L Carbon Dioxide Level 25.0 MEQ/L Anion Gap 11 MEQ/L Estimat Glomerular Filtration Rate 5 ML/MIN Total Creatine Kinase 53 U/L Troponin I LESS THAN 0.02 NG/ML B-Type Natriuretic Peptide 1085 PG/ML MDM Medical Decision Making Medical Screen Exam Complete: Yes Emergency Medical Condition: Yes Medical Record Reviewed: Yes Interpretation(s) SINUS RASHID, 56, NO STEMI PATTERN, NO PEAKED T WAVE, NO INVERTED T WAVES, NO WIDENED QRS Differential Diagnosis CHF V PULM EDEMA V STEMI V COPD Narrative Course PATIENT CXR DOES NOT SHOW ANY PULM EDEMA, NO E/O HYPERKALEMIA, ANEMIA FROM CKD. PATIENT DID NOT SHOW ANY E/O HYPOXEMIA. PATIENT'S TROPONIN NEGATIVE. PATIENT 'S DYSPNEA MAY BE DUE TO MISSING DIALYSIS, WHICH SHE CAN GO TO HER OUTPATIENT WEDNESDAY APPOINTMENT TODAY. VITAL SIGNS STABLE Diagnosis Primary Impression: MILD COPD FLARE Additional Instructions: GO TO YOUR DR CROWLEY DIALYSIS APPOINTMENT LATER ON TODAY (WEDNESDAY) Disposition: 01 DISCHARGE HOME Condition: Stable Erwin Tracy MD Apr 26, 2017 01:01
[2017-04-26] MEDS ORDERED: SODIUM CHLORIDE 0.9% FLUSH 10 ML FLUSH IVF PRN (01:15)
[2017-04-26 01:23] LABS: BASOPHIL % 0.7 % (0.0-2.0); EOSINOPHIL % 0.5 % (0.0-4.0); HEMATOCRIT 28.3 % (35.0-46.0); HEMO FLAGS DIFF FINAL; LYMPH % 16.1 % (9.0-44.0); LYMPHOCYTE # 0.9 TH/MM3 (1.0-4.8); MEAN CELL VOLUME 90.4 FL (80.0-100.0); MEAN CORPUSCULAR HEMOGLOBIN 29.2 PG (27.0-34.0); MEAN CORPUSCULAR HGB CONC 32.3 % (32.0-36.0); NEUT % 72.7 % (16.0-70.0); PLATELET COUNT 180 TH/MM3 (150-450); RED BLOOD COUNT 3.13 MIL/MM3 (4.00-5.30); RED CELL DISTRIBUTION WIDTH 18.3 % (11.6-17.2); WHITE BLOOD COUNT 5.5 TH/MM3 (4.0-11.0)
--- NOTE | 2017-04-26 01:31 | RADRPT ---
EXAM DATE/TIME: 04/26/2017 01:18 [facility] COMPARISON: CHEST SINGLE AP, April 04, 2017, 21:32. INDICATIONS : Shortness of breath MEDICAL HISTORY : Chronic obstructive pulmonary disease. Congestive heart failure. Cardiovascular disease. HTN, Vickey al failure SURGICAL HISTORY : None. ENCOUNTER: Initial ACUITY: 1 day PAIN SCORE: 7/10 LOCATION: Bilateral chest FINDINGS: The cardiac silhouette is enlarged in transverse diameter. There is eventration of the left hemidiaph ragm. The lungs are free of acute parenchymal opacity. No effusions are identified. CONCLUSION: 1. Cardiomegaly. No acute pulmonary disease. Nigel Mcfarland MD on April 26, 2017 at 1:29 Board Certified Radiologist. This report was verified electronically.
[2017-04-26 01:36] LABS: APTT (PATIENT) 22.6 SEC (24.3-30.1); PROTHROMBIN TIME - PATIENT 11.4 SEC (9.8-11.6)
[2017-04-26 01:37] LABS: ALT (GPT) 39 U/L (10-53); ANION GAP 11 MEQ/L (5-15); AST (GOT) 34 U/L (15-37); BLOOD UREA NITROGEN 57 MG/DL (7-18); CHLORIDE 93 MEQ/L (98-107); GLOMERULAR FILTRATION RATE 5 ML/MIN (>89); POTASSIUM 4.9 MEQ/L (3.5-5.1); SODIUM (NA) 129 MEQ/L (136-145)
[2017-04-26 01:41] LABS: ALKALINE PHOSPHATASE 210 U/L (45-117); TOTAL BILIRUBIN ADULT 0.6 MG/DL (0.2-1.0)
[2017-04-26 01:46] LABS: CREATINE KINASE 53 U/L (26-192)
[2017-04-26 02:00] VITALS: BP 129/60; PULSE 54; RESP 20; O2SAT 100
[2017-04-26 03:00] VITALS: BP 121/57; PULSE 54; RESP 16; O2SAT 100
[2017-04-26 04:00] VITALS: BP 130/60; PULSE 54; RESP 19; O2SAT 100
[2017-04-26 05:00] VITALS: BP 145/56; PULSE 54; RESP 19; O2SAT 100
--- NOTE | 2017-04-26 22:06 | EKG ---
Date Performed: 04/26/2017 Time Performed: 01:06:42 PTAGE: 51 years EKG: SINUS BRADYCARDIA ABNORMAL ECG Compared to prior tracing no significant change DOCTOR: Amina Juarez Interpretating Date/Time 04/26/2017 22:04:37
== END 2017-04-26 09:28 | disposition home or self-care (01) ==
LOC: NEPC 00:50
DX: J44.1 Chronic obstructive pulmonary disease with (acute) exacerbation (principal); I12.9 Hypertensive chronic kidney disease with stage 1 through stage 4 chronic kidney disease, or unspecified chronic kidney disease; N18.9 Chronic kidney disease, unspecified; E78.00 Pure hypercholesterolemia, unspecified; F17.210 Nicotine dependence, cigarettes, uncomplicated; Z99.2 Dependence on renal dialysis
CPT/HCPCS: 71010; 80053; 82550; 83880; 84484; 85025; 85610; 85730; 93005; 99285

== ENCOUNTER 2017-04-26 10:32 | Observation (INO) | payer MEDICARE, OTHER ==
[~2017-04-26] VITALS: Ht 142.2 cm; Wt 50.0 kg
[2017-04-26 10:33] VITALS: BP 132/64; PULSE 56; RESP 15; TEMP 97.7; O2SAT 93
[2017-04-26 13:39] VITALS: BP 144/62; PULSE 55; RESP 21; O2SAT 94
--- NOTE | 2017-04-26 13:55 | PD ---
HPI Chief Complaint: Medical Clearance Time Seen by Provider: 13:51 Travel History International Travel<30 days: No Contact w/Intl Traveler<30days: No Traveled to known affect area: No History of Present Illness HPI 51-year-old female was seen last night in the emergency room and discharged. However patient had no means of going back home and sat in the waiting room. ED case management went and spoke with her and she voiced her concern that she cannot be taken care at home. She has an adopted niece who has refused to take care of her. Patient says she has been getting frequent nausea and vomiting and difficulty walking. Patient has multiple medical as well as psych condition. She is end-stage renal disease with hemodialysis dependent and gets dialyzed on Wednesdays and Fridays. Patient is supposed to be dialyzed today but has no way to go to the dialysis. ED case management is looking into a long-term placement and hence got her reregister so that she can be admitted while this placement can be looked into. Vital signs are stable otherwise. [facility] Past Medical History Narrative Medical List of her past medical, surgical, social and family history is reviewed from the nursing note. Hx Anticoagulant Therapy: Yes Asthma: No Autoimmune Disease: No Blood Disorders: No Bipolar Disorder: Yes Anxiety: Yes Depression: Yes Heart Rhythm Problems: Yes (palpitations) Cancer: No Cardiovascular Problems: Yes High Cholesterol: Yes Chest Pain: Yes Congestive Heart Failure: Yes COPD: Yes Cerebrovascular Accident: No Diabetes: No Dialysis: Yes (WED, WED, WED) Diminished Hearing: No Endocrine: No Gastrointestinal Disorders: Yes GERD: Yes Genitourinary: Yes Hiatal Hernia: No Hypertension: Yes Immune Disorder: No Implanted Vascular Access Dvce: Yes Kidney Stones: No Musculoskeletal: Yes Neurologic: Yes Psychiatric: Yes Reproductive: No Respiratory: Yes Renal Failure: Yes Schizophrenia: Yes Sleep Apnea: No Thyroid Disease: No Ulcer: No ?: Not Menopausal: Yes : 4 Para: 3 : 1 Past Surgical History AICD: No Arteriovenous Shunt: Yes (left chest) Body Medical Devices: A/V SHUNT- LEFT CHEST Section: Yes Ear Surgery: Yes (pe tubes as a child) Gynecologic Surgery: Yes ( X 3 - ) Joint Replacement: Yes (right knee ) Oral Surgery: Yes (teeth pulled) Pacemaker: No Other Surgery: Yes (cyst ovary drained/ AV- SHUNT- LEFT CHEST-left arm av shunt nonfunctioning) Social History Alcohol Use: No Tobacco Use: No (QUIT 3 MONTHS AGO) Substance Use: No (HX ) Allergies-Medications (Allergen,Severity, Reaction): Coded Allergies: No Known Allergies (Unverified , 04/26/17) Comments No known drug allergies. Reported Meds & Prescriptions Reported Meds & Active Scripts Active Norvasc (Amlodipine Besylate) 10 Mg Tab 10 Mg PO DAILY 30 Days Coreg (Carvedilol) 3.125 Mg Tab 3.125 Mg PO BID 30 Days Atorvastatin (Atorvastatin Calcium) 20 Mg Tab 20 Mg PO HS Walker with Front Wheels (Device) 1 Mis Mis Ea .ROUTE DIRECTED Trazodone (Trazodone HCl) 50 Mg Tab 100 Mg PO HS 30 Days Latuda (Lurasidone) 20 Mg Tab 20 Mg PO DAILY Lexapro (Escitalopram Oxalate) 10 Mg Tab 20 Mg PO DAILY Fibercon (Calcium Polycarbophil) 625 Mg Tab 1,250 Mg PO Q12HR PRN Polyethylene Glycol 3350 Powder (Polyethylene Glycol) 17 Gm Pow 17 Gm PO DAILY 14 Days Katalina-Colace (Sennosides-Docusate Sodium) 8.6-50 Mg Tab 1 Tab PO BID Oxygen tank (Oxygen) 1 Ea Tank 2 Liter JOSIAH.CANULA CONTINUOUS Oxygen Concentrator Portable Gaseous 2 L/min via Nasal Cannula Continuous For 99 months Reported Prilosec (Omeprazole Magnesium) 20 Mg Tab Renvela (Sevelamer Carbonate) 800 Mg Tab 800 Mg PO TID Nephrocaps (B-Complex W/ C & Folic Acid) 1 Cap 1 Cap PO DAILY If on dialysis, take after treatment. Gabapentin 100 Mg Cap 200 Mg PO BID Sensipar (Cinacalcet) 60 Mg Tab 60 Mg PO DAILY Allopurinol 300 Mg Tab 300 Mg PO DAILY Albuterol Neb (Albuterol Sulfate) 2.5 Mg/0.5 Ml Neb 2.5 Mg NEB Q6HR NEB Note: The Albuterol Sulfate Inhalation Solution is concentrated and must be diluted. Read complete instructions carefully before using. Auryxia (Ferric Citrate) 210 Mg Tab 210 Mg PO 2-3 TIMES A DAY Take with meals 2-3 times a day Reglan (Metoclopramide HCl) 5 Mg Tab 5 Mg PO TIDAC Narrative Medication List of her home medications reviewed from the nursing note. Review of Systems Except as stated in HPI: all other systems reviewed are Neg Physical Exam Narrative GENERAL: Awake, alert, looks older than her age, no obvious distress SKIN: Focused skin assessment warm/dry. HEAD: Atraumatic. Normocephalic. EYES: Pupils equal and round. No scleral icterus. No injection or drainage. ENT: No nasal bleeding or discharge. Mucous membranes pink and moist. NECK: Trachea midline. No JVD. CARDIOVASCULAR: Regular rate and rhythm. No murmur appreciated. RESPIRATORY: No accessory muscle use. Clear to auscultation. Breath sounds equal bilaterally. GASTROINTESTINAL: Abdomen soft, non-tender, nondistended. Hepatic and splenic margins not palpable. MUSCULOSKELETAL: No obvious deformities. No clubbing. No cyanosis. No edema. NEUROLOGICAL: Awake and alert. No obvious cranial nerve deficits. Motor grossly within normal limits. Normal speech. PSYCHIATRIC: Appropriate mood and affect; insight and judgment normal. Data Data Last Documented VS Orders Orders Admit Order (Ed Use Only) (04/26/17 14:44) MDM Medical Decision Making Medical Screen Exam Complete: Yes Emergency Medical Condition: Yes Medical Record Reviewed: Yes Differential Diagnosis End-stage renal disease, hemodialysis dependent, unable to take care of herself Narrative Course 2:25 PM awaiting for the hospitalist to call back. Also place a call out for the aircraft systems technician so that patient can be scheduled for dialysis today. I have not ordered any blood test since one was done last night and her potassium was within acceptable limit. 2:33 PM I discussed the case with Dr. Colin from nephrology who will schedule dialysis. Still waiting for the admitting physician to call back. Procedures EKG Prior to Arrival: No Diagnosis Primary Impression: End stage renal disease Additional Impressions: Dependent on hemodialysis Impaired ambulation Admitting Information Admitting Physician Requests: Observation Matias Hanna MD Apr 26, 2017 13:55
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
[2017-04-26] MEDS ORDERED: SENNOSIDES 8.6 MG TAB PO PRN (15:15)
[2017-04-26] MEDS ORDERED: NALOXONE HCL 0.4 MG/ML AMP IV PUSH PRN (15:15)
[2017-04-26] MEDS ORDERED: ONDANSETRON HCL 4 MG/2 ML VIAL IVP PRN (15:15)
[2017-04-26] MEDS ORDERED: SODIUM CHLORIDE 0.9% FLUSH 10 ML FLUSH IV FLUSH PRN ×2 (15:15→17:15)
[2017-04-26] MEDS ORDERED: BISACODYL 10 MG SUPP RECTAL PRN (15:15)
[2017-04-26] MEDS ORDERED: LACTULOSE SYRUP 20 GM/30 ML CUP PO PRN (15:15)
[2017-04-26] MEDS ORDERED: MAGNESIUM HYDROXIDE SUSP 30 ML CUP PO PRN (15:15)
[2017-04-26] MEDS ORDERED: SODIUM CHLOR 0.9% 1000 ML INJ 1,000 ML IV PRN (17:07)
[2017-04-26] MEDS ORDERED: SODIUM CHLOR 0.9% 1000 ML INJ 1,000 ML OTHER PRN ×2 (17:07)
[2017-04-26] MEDS ORDERED: NITROGLYCERIN 0.4 MG SL 25 TABS/BTL SL PRN (17:15)
[2017-04-26] MEDS ORDERED: ONDANSETRON HCL 4 MG/2 ML VIAL IV PUSH PRN (17:15)
[2017-04-26] MEDS ORDERED: diphenhydrAMINE HCL 25 MG CAP PO PRN (17:15)
[2017-04-26] MEDS ORDERED: GENTAMICIN SULFATE (DIALYSIS USE ONLY) 20 MG/2 ML VIAL OTHER PRN (17:15)
[2017-04-26] MEDS ORDERED: MANNITOL 12.5 GM/50 ML VIAL IV PRN (17:15)
[2017-04-26] MEDS ORDERED: HEPARIN SODIUM - IV 10,000 UNITS/10 ML VIAL IV FLUSH PRN (17:15)
[2017-04-26] MEDS ORDERED: ACETAMINOPHEN 325 MG TAB PO PRN (17:15)
[2017-04-26] MEDS ORDERED: cloNIDine HCL 0.1 MG TAB PO PRN (17:15)
[2017-04-26] MEDS ORDERED: HEPARIN SODIUM - IV 10,000 UNITS/10 ML VIAL PRN (17:15)
[2017-04-26] MEDS ORDERED: ALBUMIN 25% INJ 100 ML IV PRN (17:15)
[2017-04-26 18:55] VITALS: O2SAT 94
--- NOTE | 2017-04-26 20:30 | MB ---
cc: KYM SALAMANCA MD DATE OF CONSULTATION 04/26/2017 REASON FOR CONSULTATION End-stage renal disease on hemodialysis for management. HISTORY OF PRESENT ILLNESS This is a 51-year-old female with past medical history of hypertension, history of bipolar disorder, anxiety, depression, chronic anemia, ischemic heart disease, hyperlipidemia, chronic anemia, end-stage renal disease on hemodialysis three times per week came to the emergency department because of placement issue. I was called to see the patient for management of dialysis. The patient has been on hemodialysis Wednesday, Wednesday and Wednesday. She missed her dialysis last week Wednesday. She came to the emergency department and she was discharged from there but she has no place to go and she stayed in the waiting area and eventually was seen by the emergency department again and now admitted mainly for placement as she has no place to go. The patient has shortness of breath. There is no chest pain, mild cough. No nausea or vomiting. No history of fever. Denies any headache, dizziness or blurring of vision. She is currently on hemodialysis. PAST MEDICAL HISTORY 1. Hyperlipidemia. 2. Hypertension. 3. Chronic anemia. 4. End-stage renal disease on hemodialysis three times a week. 5. Chronic obstructive pulmonary disease. 6. Bipolar disorder. 7. Anxiety. 8. Depression. PAST SURGICAL HISTORY 1. History of left upper chest AV fistula surgery. 2. section. 3. Ovarian cyst drainage. REVIEW OF SYSTEMS The patient has generalized weakness, feeling tired, has shortness of breath mainly on exertion. Has mild cough. There is no chest pain. No palpitation. No history of fever. No sore throat. No headache, dizziness or blurring vision. No nausea, vomiting. No abdominal pain. No history of diarrhea. She has generalized weakness. SOCIAL HISTORY The patient was living with her niece but now she has no place to go because the niece refused to take care of her. She has a long history of smoking and recently stopped smoking. There is no history of heavy alcoholism. FAMILY HISTORY Noncontributory. ALLERGIES NO KNOWN DRUG ALLERGIES. MEDICATIONS Currently she is on following medications: 1. Katalina-Colace one tablet twice a day. 2. Zofran as needed. 3. Narcan as needed. PHYSICAL EXAMINATION GENERAL: The patient is awake and alert. She is currently on hemodialysis. VITAL SIGNS: Last blood pressure 144/62, temperature is 97.7. Oxygen saturation on room air is 93-94%. HEENT: Pupils are mid constricted. Nonicteric sclerae. Conjunctivae pale. NECK: Supple. JVD is not elevated. LUNGS: The patient has bilateral decreased air entry with basilar rales and scattered wheezing. HEART: S1-S2. Regular rhythm. ABDOMEN: Soft. Lax. Distended. There is no tenderness. Bowel sounds positive. EXTREMITIES: There is 1+ edema. LABORATORY DATA Investigations, WBC is 5.5, hemoglobin 9.2, platelet count of 180. Sodium 129, potassium 4.9, chloride 93, bicarb 25, BUN 57, creatinine 7.8. Calcium 8.2, phosphorus 2.3. Iron saturation 22.2. Total bilirubin is 0.6. AST, ALT normal. Trop I 0.02. IMAGING STUDIES The patient has chest x-ray done which shows cardiomegaly. No pulmonary edema. ASSESSMENT/PLAN 1. End-stage renal disease on hemodialysis with history of noncompliance. 2. Anemia. 3. History of bipolar disorder. 4. Anxiety, depression. 5. COPD. 6. Hypertension. The patient is now on hemodialysis. She missed her dialysis treatment last week Wednesday. I will remove fluid as tolerated. She has a left upper chest AV fistula. The patient has been following with Dr. Vinson and there is a compliance issue and now also she needs some placement because she has no place to go. Case management has been consulted and we will follow their recommendation. In the meantime we will continue the dialysis while she is here. Epogen with dialysis for anemia. Thank you for the consultation and I will follow the patient while she is in the hospital. MD SARINA Tatum/CINTIA /5:10 PM /8:15 PM
[2017-04-26 20:49] VITALS: BP 162/68; PULSE 66; RESP 18; TEMP 98; O2SAT 92
[2017-04-26] MEDS: SODIUM CHLORIDE 0.9% FLUSH 10 ML FLUSH IV FLUSH SCH (21:00)
[2017-04-26] MEDS: DOCUSATE SODIUM 50 MG/SENNA 8.6 MG TAB PO SCH (21:00)
[2017-04-27] VITALS (11 sets, daily range): BP systolic 113–154; BP diastolic 53–68; PULSE 56–63; RESP 16–18; TEMP 97.2–98.4; O2SAT 88–98
[2017-04-27] MEDS: SEVELAMER CARBONATE 800 MG TAB PO SCH ×3 (09:00→16:32)
[2017-04-27] MEDS: DOCUSATE SODIUM 50 MG/SENNA 8.6 MG TAB PO SCH ×2 (09:00→21:00)
[2017-04-27] MEDS: ALLOPURINOL 300 MG TAB PO SCH (09:00)
[2017-04-27] MEDS: SODIUM CHLORIDE 0.9% FLUSH 10 ML FLUSH IV FLUSH SCH ×2 (09:00→21:00)
--- NOTE | 2017-04-27 09:04 | HHI.PR ---
Subjective Remarks Follow up for ESRD on HD, needs placement. The patient had dialysis yesterday. She has no medical complaints including no headache, lightheadedness, dizziness , chest pain, palpitations, shortness of breath, or abdominal complaints. She states she has nowhere to go. Objective Vitals Vital Signs Date Time Temp Pulse Resp B/P (MAP) Pulse Ox O2 Delivery O2 Flow Rate FiO2 04/27/17 08:30 98 21 04/27/17 08:00 98.3 60 18 154/68 (96) 98 04/27/17 05:27 21 04/27/17 05:01 56 04/27/17 03:38 98.3 59 18 127/58 (81) 96 04/27/17 00:30 98.1 57 18 135/61 (85) 95 04/26/17 20:49 98.0 66 18 162/68 (99) 92 04/26/17 18:55 94 04/26/17 16:03 04/26/17 13:39 55 21 144/62 (89) 94 Room Air 04/26/17 10:33 97.7 56 15 132/64 (86) 93 I/O 04/26/17 04/26/17 04/26/17 04/27/17 04/27/17 04/27/17 07:00 15:00 23:00 07:00 15:00 23:00 Output Total 3500 ml Balance -3500 ml Output Hemodialysis 3500 ml Objective Remarks GENERAL: Well-nourished, well-developed unkempt appearing middle aged female patient in [facility]. SKIN: Warm and dry. No rash. HEENT: Normocephalic. Atraumatic. Pupils equal and round. Mucous membranes pink and moist. CARDIOVASCULAR: Regular rate and rhythm. S1, S2 noted. 3/6 systolic murmur. RESPIRATORY: No accessory muscle use. Clear to auscultation. Breath sounds equal bilaterally. GASTROINTESTINAL: Abdomen soft, non-tender, nondistended. Normoactive bowel sounds x4. MUSCULOSKELETAL: No obvious deformities. Extremities without clubbing, cyanosis , or edema. NEUROLOGICAL: Awake and alert. No obvious cranial nerve deficits. Motor grossly within normal limits. Normal speech. PSYCHIATRIC: Appropriate mood and affect; insight and judgment normal. Medications and IVs Current Medications Medications (Trade) Dose Ordered Sig/Lora Route Start Time Stop Time Status Last Admin (NS Flush) 2 ml UNSCH PRN IV FLUSH 04/26/17 15:15 (NS Flush) 2 ml BID IV FLUSH 04/26/17 21:00 (Tylenol) 650 mg Q4H PRN PO 04/26/17 15:15 (Zofran Inj) 4 mg Q6H PRN IVP 04/26/17 15:15 (Narcan Inj) 0.4 mg UNSCH PRN IV PUSH 04/26/17 15:15 (Katalina-Colace) 1 tab BID PO 04/26/17 21:00 (Milk Of Magnesia Liq) 30 ml Q12H PRN PO 04/26/17 15:15 (Senokot) 17.2 mg Q12H PRN PO 04/26/17 15:15 (Dulcolax Supp) 10 mg DAILY PRN RECTAL 04/26/17 15:15 (Lactulose Liq) 30 ml DAILY PRN PO 04/26/17 15:15 Sodium Chloride 1,000 ml @ 0 mls/hr Q0M PRN OTHER 04/26/17 17:07 (Heparin Inj) 8,000 units UNSCH PRN IV FLUSH 04/26/17 17:15 Sodium Chloride 1,000 ml @ 200 mls/hr Q5H PRN IV 04/26/17 17:07 Sodium Chloride 1,000 ml @ 0 mls/hr Q0M PRN OTHER 04/26/17 17:07 (Mannitol Inj) 12.5 gm UNSCH PRN IV 04/26/17 17:15 Albumin Human 100 ml @ 60 mls/hr UNSCH PRN IV 04/26/17 17:15 (NS Flush) 5 ml UNSCH PRN IV FLUSH 04/26/17 17:15 (Heparin Inj) UNSCH PRN .XX 04/26/17 17:15 (Gentamicin (Dialysis) Inj) 20 mg UNSCH PRN OTHER 04/26/17 17:15 (Zofran Inj) 4 mg UNSCH PRN IV PUSH 04/26/17 17:15 (Tylenol) 650 mg UNSCH PRN PO 04/26/17 17:15 (Benadryl) 25 mg UNSCH PRN PO 04/26/17 17:15 (Nitrostat Sl) 0.4 mg UNSCH PRN SL 04/26/17 17:15 (Catapres) 0.1 mg UNSCH PRN PO 04/26/17 17:15 (Epogen Inj) 10,000 units UNSCH PRN IV PUSH 04/26/17 17:15 (Gelfoam 12 Mm/7 Mm Top) 1 foam UNSCH PRN TOP 04/26/17 17:15 A/P Assessment and Plan 51-year-old female with past medical history of end-stage renal disease on dialysis, hypertension, COPD, and noncompliance who presented with placement and dialysis End-stage renal disease -Information Systems Security Developer Dr. Colin consulted, to continue dialysis (M,W,F). -Management per mail processing equipment mechanic. COPD/hypertension/hyperlipidemia/noncompliance -Resume home medications, currently BP and O2 sat stable Disposition -Patient is now homeless and needs assistance with placement. Case management to assist with discharge planning. DVT Prophylaxis: Sintia Lin PA-C Apr 27, 2017 9:04 am
[2017-04-27] MEDS: GABAPENTIN 100 MG CAP PO SCH ×2 (14:44→22:33)
[2017-04-27] MEDS: CINACALCET HYDROCHLORIDE 30 MG TAB PO SCH (14:44)
[2017-04-27] MEDS: CARVEDILOL 3.125 MG TAB PO SCH ×2 (14:47→20:31)
[2017-04-27] MEDS: ESCITALOPRAM OXALATE 10 MG TAB PO SCH ×2 (16:17→16:32)
--- NOTE | 2017-04-27 20:14 | HHI.NPPN ---
Subjective History of Present Illness 51-year-old female with past medical history of hypertension, history of bipolar disorder, anxiety, depression, chronic anemia, ischemic heart disease, hyperlipidemia, chronic anemia, end-stage renal disease on hemodialysis three times per week came to the emergency department because of placement issue. I was called to see the patient for management of dialysis. The patient has been on hemodialysis Wednesday, Wednesday and Wednesday. Additional Remarks Patient is alert, no SOB, feeling better. Review of Systems General Constitutional: Fatigue Cardiovascular Cardiac: Edema, KEITH Objective Data Data 04/27/17 04/28/17 18:59 06:59 Intake Total 920 ml Balance 920 ml Intake Oral 920 ml # Voids 3 # Bowel Movements 1 Vital Signs Date Time Temp Pulse Resp B/P (MAP) Pulse Ox O2 Delivery O2 Flow Rate FiO2 04/27/17 19:38 97.8 59 17 149/65 (93) 97 04/27/17 16:00 98.0 58 18 139/63 (88) 97 04/27/17 12:00 98.4 59 18 117/58 (77) 96 04/27/17 08:30 98 21 04/27/17 08:00 98.3 60 18 154/68 (96) 98 04/27/17 05:27 21 04/27/17 05:01 56 04/27/17 03:38 98.3 59 18 127/58 (81) 96 04/27/17 00:30 98.1 57 18 135/61 (85) 95 04/26/17 20:49 98.0 66 18 162/68 (99) 92 Physical Exam General Appearance: No Acute Distress, Comfortable Eyes Eye Exam: Pupils Equal Throat Throat Exam: Oral Mucosa Bud & Moist Neck Neck Exam: Neck Supple Pulmonary Resp Exam: Breath Sounds Equal, Rhonchi, Decreased Bases Cardiology CV Exam: Regular, Normal Sinus Rhythm Gastrointestinal/Abdomen GI Exam: Soft, Non-Tender, Bowel Sounds Present Extremeties Extremities Exam: Trace Edema Neurologic Neuro Exam: Alert, Awake, Oriented Psychiatric Psych Exam: Appropriate Responses Assessment/Plan Assessment Summary: Anemia of CKD, Hypertension, End Stage Renal Disease Problem List: (1) Bipolar disorder ICD Codes: F31.9 - Bipolar disorder, unspecified Status: Chronic (2) Diastolic CHF, acute ICD Codes: I50.31 - Acute diastolic (congestive) heart failure Status: Acute (3) Hypertension ICD Codes: I10 - Essential (primary) hypertension Status: Chronic (4) Anemia ICD Codes: D64.9 - Anemia, unspecified Status: Acute (5) Dependent on hemodialysis ICD Codes: Z99.2 - Dependence on renal dialysis Status: Acute (6) End stage renal disease ICD Codes: N18.6 - End stage renal disease Status: Acute Plan Patient has HD done yesterday. BP is stable. Not in fluid over;load status. HD to continue MWF. Awaiting placement. Jessica Colin MD Apr 27, 2017 20:14
[2017-04-27] MEDS: ATORVASTATIN 20 MG TAB PO SCH (22:32)
[2017-04-27] MEDS: traZODone HCL 100 MG TAB PO SCH (22:33)
[2017-04-28] VITALS (8 sets, daily range): BP systolic 105–163; BP diastolic 52–89; PULSE 53–88; RESP 16–18; TEMP 97.4–99; O2SAT 93–99
[2017-04-28] MEDS: RESP: ALBUTEROL 2.5 MG/3 ML NEB (PRN) NEB (08:47)
[2017-04-28] MEDS: SEVELAMER CARBONATE 800 MG TAB PO SCH ×3 (09:00→18:38)
[2017-04-28] MEDS: ALLOPURINOL 300 MG TAB PO SCH (09:00)
[2017-04-28] MEDS: DOCUSATE SODIUM 50 MG/SENNA 8.6 MG TAB PO SCH ×2 (09:00→22:45)
[2017-04-28] MEDS: SODIUM CHLORIDE 0.9% FLUSH 10 ML FLUSH IV FLUSH SCH ×2 (09:00→21:00)
--- NOTE | 2017-04-28 09:03 | HHI.PR ---
Subjective Remarks Follow up for ESRD on HD, COPD, needs placement. The patient reports feeling well today. Denies any fevers/chills, chest pain, shortness of breath, or abdominal complaints. She wants to shower. She is tolerating oral intake. She has no other medical complaints at this time. Objective Vitals Vital Signs Date Time Temp Pulse Resp B/P (MAP) Pulse Ox O2 Delivery O2 Flow Rate FiO2 04/28/17 08:49 95 21 04/28/17 08:00 97.4 59 16 142/63 (89) 96 04/28/17 07:51 Nasal Cannula 2.00 04/28/17 05:12 Nasal Cannula 2.00 04/28/17 03:21 98.3 53 16 105/52 (69) 93 04/27/17 23:27 96 Nasal Cannula 3.00 04/27/17 23:26 88 04/27/17 23:11 97.2 56 16 113/53 (73) 91 04/27/17 19:38 97.8 59 17 149/65 (93) 97 04/27/17 16:00 59 04/27/17 16:00 98.0 58 18 139/63 (88) 97 04/27/17 12:00 98.4 59 18 117/58 (77) 96 I/O 04/27/17 04/27/17 04/27/17 04/28/17 04/28/17 04/28/17 07:00 15:00 23:00 07:00 15:00 23:00 Intake Total 920 ml 500 ml Balance 920 ml 500 ml Intake Oral 920 ml 500 ml # Voids 3 1 # Bowel Movements 1 Objective Remarks GENERAL: Well-nourished, well-developed middle aged female patient in [facility]. SKIN: Warm and dry. No rash. HEENT: Normocephalic. Atraumatic. Pupils equal and round. Mucous membranes pink and moist. CARDIOVASCULAR: Regular rate and rhythm. S1, S2 noted. 3/6 systolic murmur. RESPIRATORY: No accessory muscle use. Clear to auscultation. Breath sounds equal bilaterally. GASTROINTESTINAL: Abdomen soft, non-tender, nondistended. Normoactive bowel sounds x4. MUSCULOSKELETAL: No obvious deformities. Extremities without clubbing, cyanosis , or edema. NEUROLOGICAL: Awake and alert. No obvious cranial nerve deficits. Motor grossly within normal limits. Normal speech. PSYCHIATRIC: Appropriate mood and affect; insight and judgment normal. Medications and IVs Current Medications Medications (Trade) Dose Ordered Sig/Lora Route Start Time Stop Time Status Last Admin (NS Flush) 2 ml UNSCH PRN IV FLUSH 04/26/17 15:15 (NS Flush) 2 ml BID IV FLUSH 04/26/17 21:00 (Tylenol) 650 mg Q4H PRN PO 04/26/17 15:15 (Zofran Inj) 4 mg Q6H PRN IVP 04/26/17 15:15 (Narcan Inj) 0.4 mg UNSCH PRN IV PUSH 04/26/17 15:15 (Katalina-Colace) 1 tab BID PO 04/26/17 21:00 (Milk Of Magnesia Liq) 30 ml Q12H PRN PO 04/26/17 15:15 (Senokot) 17.2 mg Q12H PRN PO 04/26/17 15:15 (Dulcolax Supp) 10 mg DAILY PRN RECTAL 04/26/17 15:15 (Lactulose Liq) 30 ml DAILY PRN PO 04/26/17 15:15 Sodium Chloride 1,000 ml @ 0 mls/hr Q0M PRN OTHER 04/26/17 17:07 (Heparin Inj) 8,000 units UNSCH PRN IV FLUSH 04/26/17 17:15 Sodium Chloride 1,000 ml @ 200 mls/hr Q5H PRN IV 04/26/17 17:07 Sodium Chloride 1,000 ml @ 0 mls/hr Q0M PRN OTHER 04/26/17 17:07 (Mannitol Inj) 12.5 gm UNSCH PRN IV 04/26/17 17:15 Albumin Human 100 ml @ 60 mls/hr UNSCH PRN IV 04/26/17 17:15 (NS Flush) 5 ml UNSCH PRN IV FLUSH 04/26/17 17:15 (Heparin Inj) UNSCH PRN .XX 04/26/17 17:15 (Gentamicin (Dialysis) Inj) 20 mg UNSCH PRN OTHER 04/26/17 17:15 (Zofran Inj) 4 mg UNSCH PRN IV PUSH 04/26/17 17:15 (Tylenol) 650 mg UNSCH PRN PO 04/26/17 17:15 (Benadryl) 25 mg UNSCH PRN PO 04/26/17 17:15 (Nitrostat Sl) 0.4 mg UNSCH PRN SL 04/26/17 17:15 (Catapres) 0.1 mg UNSCH PRN PO 04/26/17 17:15 (Epogen Inj) 10,000 units UNSCH PRN IV PUSH 04/26/17 17:15 (Gelfoam 12 Mm/7 Mm Top) 1 foam UNSCH PRN TOP 04/26/17 17:15 (Zyloprim) 300 mg DAILY PO 04/27/17 09:00 (Norvasc) 10 mg DAILY PO 04/27/17 09:00 04/27/17 14:47 (Lipitor) 20 mg HS PO 04/27/17 21:00 04/27/17 22:32 (Coreg) 3.125 mg BID PO 04/27/17 09:00 04/27/17 14:47 (Lexapro) 20 mg DAILY PO 04/27/17 09:00 04/27/17 16:32 (Neurontin) 100 mg BID PO 04/27/17 09:00 04/27/17 22:33 (Renvela) 800 mg TID PO 04/27/17 09:00 04/27/17 16:32 (Desyrel) 100 mg HS PO 04/27/17 21:00 04/27/17 22:33 (Sensipar) 60 mg DAILY PO 04/27/17 10:00 04/27/17 14:44 (Albuterol Neb) 2.5 mg Q4HR NEB PRN NEB 04/27/17 09:15 04/28/17 08:47 A/P Assessment and Plan 51-year-old female with past medical history of end-stage renal disease on dialysis, hypertension, COPD, and noncompliance who presented with placement and dialysis End-stage renal disease on HD -Duplicating Machine Operator Dr. Colin consulted, to continue dialysis (M,W,F). -Management per business banking officer. COPD/hypertension/hyperlipidemia/noncompliance -Resume home medications, currently BP and O2 sat stable Disposition -Patient is now homeless and needs assistance with placement. -Case management to assist with discharge planning. DVT Prophylaxis: SCDs Discharge Planning Awaiting placement. Sintia Alvarado PA-C Apr 28, 2017 9:02 am
[2017-04-28] MEDS: GELATIN 12 MM/7 MM FOAM TOP PRN (12:08)
[2017-04-28] MEDS: EPOETIN ALFA 10,000 UNITS/ML VIAL IV PUSH PRN (12:09)
[2017-04-28] MEDS: CINACALCET HYDROCHLORIDE 30 MG TAB PO SCH (14:58)
[2017-04-28] MEDS: CARVEDILOL 3.125 MG TAB PO SCH ×2 (14:58→22:47)
[2017-04-28] MEDS: GABAPENTIN 100 MG CAP PO SCH ×2 (14:59→22:45)
--- NOTE | 2017-04-28 17:24 | HHI.NPPN ---
Subjective History of Present Illness 51-year-old female with past medical history of hypertension, history of bipolar disorder, anxiety, depression, chronic anemia, ischemic heart disease, hyperlipidemia, chronic anemia, end-stage renal disease on hemodialysis three times per week came to the emergency department because of placement issue. I was called to see the patient for management of dialysis. The patient has been on hemodialysis Wednesday, Wednesday and Wednesday. Additional Remarks Patient is alert, no SOB, feeling better, clinically same. Review of Systems General Constitutional: Fatigue Cardiovascular Cardiac: Edema, KEITH Objective Data Data 04/28/17 04/29/17 19:00 07:00 Output Total 2000 ml Balance -2000 ml Output Hemodialysis 2000 ml Vital Signs Date Time Temp Pulse Resp B/P (MAP) Pulse Ox O2 Delivery O2 Flow Rate FiO2 04/28/17 16:00 97.4 77 17 145/65 (91) 99 04/28/17 14:50 97.7 67 18 163/89 (113) 99 04/28/17 08:49 95 21 04/28/17 08:00 97.4 59 16 142/63 (89) 96 04/28/17 07:51 Nasal Cannula 2.00 04/28/17 05:12 Nasal Cannula 2.00 04/28/17 03:21 98.3 53 16 105/52 (69) 93 04/27/17 23:27 96 Nasal Cannula 3.00 04/27/17 23:26 88 04/27/17 23:11 97.2 56 16 113/53 (73) 91 04/27/17 19:38 97.8 59 17 149/65 (93) 97 Physical Exam General Appearance: No Acute Distress, Comfortable Eyes Eye Exam: Pupils Equal Throat Throat Exam: Oral Mucosa [place] & Moist Neck Neck Exam: Neck Supple Pulmonary Resp Exam: Breath Sounds Equal, Rhonchi, Decreased Bases Cardiology CV Exam: Regular, Normal Sinus Rhythm Gastrointestinal/Abdomen GI Exam: Soft, Non-Tender, Bowel Sounds Present Extremeties Extremities Exam: Trace Edema Neurologic Neuro Exam: Alert, Awake, Oriented Psychiatric Psych Exam: Appropriate Responses Assessment/Plan Assessment Summary: Anemia of CKD, Hypertension, End Stage Renal Disease Problem List: (1) Bipolar disorder ICD Codes: F31.9 - Bipolar disorder, unspecified Status: Chronic (2) Diastolic CHF, acute ICD Codes: I50.31 - Acute diastolic (congestive) heart failure Status: Acute (3) Hypertension ICD Codes: I10 - Essential (primary) hypertension Status: Chronic (4) Anemia ICD Codes: D64.9 - Anemia, unspecified Status: Acute (5) Dependent on hemodialysis ICD Codes: Z99.2 - Dependence on renal dialysis Status: Acute (6) End stage renal disease ICD Codes: N18.6 - End stage renal disease Status: Chronic Plan Patient has HD done as per schedule. BP is stable. Not in fluid over;load status. HD to continue MWF. Awaiting placement. Once D/C, will follow with Dr. Vinson. Problem Qualifiers (1) Bipolar disorder: Qualified Codes: F31.9 - Bipolar disorder, unspecified (2) Hypertension: Qualified Codes: I10 - Essential (primary) hypertension Jessica Colin MD Apr 28, 2017 17:24
[2017-04-28] MEDS: traZODone HCL 100 MG TAB PO SCH (22:46)
[2017-04-28] MEDS: ATORVASTATIN 20 MG TAB PO SCH (22:46)
[2017-04-28] MEDS: ACETAMINOPHEN 325 MG TAB PO PRN (22:47)
[2017-04-29] VITALS (8 sets, daily range): BP systolic 129–155; BP diastolic 63–75; PULSE 64–72; RESP 16–18; TEMP 98.1–98.5; O2SAT 92–100
[2017-04-29] MEDS: ACETAMINOPHEN 325 MG TAB PO PRN ×3 (05:45→21:05)
[2017-04-29] MEDS: SODIUM CHLORIDE 0.9% FLUSH 10 ML FLUSH IV FLUSH SCH ×2 (08:55→21:00)
[2017-04-29] MEDS: CINACALCET HYDROCHLORIDE 30 MG TAB PO SCH (08:56)
[2017-04-29] MEDS: CARVEDILOL 3.125 MG TAB PO SCH ×2 (08:56→21:05)
[2017-04-29] MEDS: GABAPENTIN 100 MG CAP PO SCH ×2 (08:56→21:05)
[2017-04-29] MEDS: SEVELAMER CARBONATE 800 MG TAB PO SCH ×3 (08:57→19:14)
[2017-04-29] MEDS: ALLOPURINOL 300 MG TAB PO SCH (08:57)
[2017-04-29] MEDS: DOCUSATE SODIUM 50 MG/SENNA 8.6 MG TAB PO SCH ×2 (08:57→21:05)
[2017-04-29] MEDS: ESCITALOPRAM OXALATE 10 MG TAB PO SCH (08:59)
[2017-04-29 09:40] LABS: AUTOMATED NEUTROPHIL # 2.2 TH/MM3 (1.8-7.7); BASOPHIL % 1.2 % (0.0-2.0); EOSINOPHIL % 1.3 % (0.0-4.0); HEMATOCRIT 26.6 % (35.0-46.0); HEMO FLAGS DIFF FINAL; LYMPH % 22.3 % (9.0-44.0); LYMPHOCYTE # 0.8 TH/MM3 (1.0-4.8); MEAN CELL VOLUME 90.2 FL (80.0-100.0); MEAN CORPUSCULAR HEMOGLOBIN 30.1 PG (27.0-34.0); MEAN CORPUSCULAR HGB CONC 33.3 % (32.0-36.0); MONO % 17.3 % (0.0-8.0); NEUT % 57.9 % (16.0-70.0); PLATELET COUNT 158 TH/MM3 (150-450); RED BLOOD COUNT 2.95 MIL/MM3 (4.00-5.30); RED CELL DISTRIBUTION WIDTH 17.6 % (11.6-17.2); WHITE BLOOD COUNT 3.7 TH/MM3 (4.0-11.0)
--- NOTE | 2017-04-29 10:10 | HHI.PR ---
Subjective Remarks Follow-up for ESRD on HD, COPD, placement issue. The patient states she is in a bad mood because she was woken up for labs today. Had dialysis yesterday. She complains of some right knee pain, not new. She denies any injury. She states it feels like the pain is on the inside. Objective Vitals Vital Signs Date Time Temp Pulse Resp B/P (MAP) Pulse Ox O2 Delivery O2 Flow Rate FiO2 04/29/17 07:14 93 21 04/29/17 07:12 98.5 64 16 135/65 (88) 93 04/29/17 03:28 98.1 67 17 136/63 (87) 96 04/28/17 23:22 18 04/28/17 23:07 98.1 81 17 163/72 (102) 04/28/17 20:14 95 Room Air 04/28/17 19:56 21 04/28/17 19:35 99.0 71 17 155/65 (95) 99 04/28/17 16:00 97.4 77 17 145/65 (91) 99 04/28/17 14:50 97.7 67 18 163/89 (113) 99 I/O 04/28/17 04/28/17 04/28/17 04/29/17 04/29/17 04/29/17 07:00 15:00 23:00 07:00 15:00 23:00 Intake Total 500 ml Output Total 2000 ml Balance 500 ml -2000 ml Intake Oral 500 ml Output Hemodialysis 2000 ml # Voids 1 Result Diagram: 04/29/17 0828 Objective Remarks GENERAL: Well-developed well-nourished. In no acute distress. SKIN: Warm and dry. Dialysis catheter in place on left chest wall. HEENT: Normocephalic. Pupils equal and round. Mucous membranes pink and moist. CARDIOVASCULAR: Regular rate and rhythm. No murmur appreciated. RESPIRATORY: No accessory muscle use. Clear to auscultation. Breath sounds equal bilaterally. GASTROINTESTINAL: Abdomen soft, non-tender, nondistended. Bowel sounds x4. MUSCULOSKELETAL: Right knee with some old scabs and full active and passive ROM. No clubbing or cyanosis. No edema. NEUROLOGICAL: Awake and alert. No focal neurological deficits. Moves upper and lower extremities spontaneously. Normal speech. PSYCHIATRIC: Appropriate mood and affect; insight and judgment fair. A/P Assessment and Plan 51-year-old female with past medical history of end-stage renal disease on dialysis, hypertension, COPD, and noncompliance who presented with placement and dialysis End-stage renal disease on HD -Trimming Operator Dr. Colin consulted, to continue dialysis (M,W,F). -Management per police manager. COPD/hypertension/hyperlipidemia/noncompliance -Continue home medications, currently BP and O2 sat stable Disposition -Patient is now homeless and needs assistance with placement. -Case management consulted to assist with discharge planning, discussed with case coordinator. Right knee pain: Seems secondary to chronic osteoarthritis -As patient does have some old scabs and possible subacute injury, will check x- ray to rule out fracture -Continue Tylenol as needed for pain DVT Prophylaxis: SCDs Discharge Planning Discharge to facility when arranged. Jayson Salazar Apr 29, 2017 10:10
[2017-04-29 10:18] LABS: BICARBONATE 31.6 MEQ/L (21.0-32.0); POTASSIUM 4.5 MEQ/L (3.5-5.1)
--- NOTE | 2017-04-29 11:06 | RADRPT ---
EXAM DATE/TIME: 04/29/2017 10:57 [place] COMPARISON: No previous studies available for comparison. INDICATIONS : Right knee pain with no injury. MEDICAL HISTORY : Chronic obstructive pulmonary disease. Renal failure, chronic. Congestive heart failure. SURGICAL HISTORY : section. Right knee. ENCOUNTER: Initial ACUITY: 2 weeks PAIN SCORE: 10/10 LOCATION: Right knee. FINDINGS: Four view examination of the right knee demonstrates evidence of previous surgery and internal fixati on involving the patella. No joint effusion is seen. The rest of the bony structures are grossly inta ct. No acute fracture or joint dislocation. There is some nonspecific sclerosis involving the lateral femoral condyle. The joint space is maintained. The soft tissues are otherwise unremarkable.. CONCLUSION: 1. No acute fracture or joint dislocation. 2. Chronic sclerosis involving the lateral femoral condyle extending down to the articulating surface . This suggests previous old injury to the lateral femoral condyle. 3. Evidence of previous internal fixation of the patella. Da Wang MD on April 29, 2017 at 11:02 Board Certified Radiologist. This report was verified electronically.
[2017-04-29] MEDS: RESP: ALBUTEROL 2.5 MG/3 ML NEB (PRN) NEB (18:44)
[2017-04-29] MEDS: traZODone HCL 100 MG TAB PO SCH (21:05)
[2017-04-29] MEDS: ATORVASTATIN 20 MG TAB PO SCH (21:05)
--- NOTE | 2017-04-29 21:59 | HHI.NPPN ---
Subjective History of Present Illness 51-year-old female with past medical history of hypertension, history of bipolar disorder, anxiety, depression, chronic anemia, ischemic heart disease, hyperlipidemia, chronic anemia, end-stage renal disease on hemodialysis three times per week came to the emergency department because of placement issue. I was called to see the patient for management of dialysis. The patient has been on hemodialysis Wednesday, Wednesday and Wednesday. Additional Remarks Patient is alert, no SOB, feeling better, no complain. Review of Systems General Constitutional: Fatigue Cardiovascular Cardiac: Edema, KEITH Objective Data Data Vital Signs Date Time Temp Pulse Resp B/P (MAP) Pulse Ox O2 Delivery O2 Flow Rate FiO2 04/29/17 20:05 98.1 71 18 155/69 (97) 100 04/29/17 19:38 Nasal Cannula 2.00 04/29/17 19:16 94 04/29/17 18:44 96 Nasal Cannula 2.00 04/29/17 16:00 98.1 72 18 144/66 (92) 94 04/29/17 11:48 98.4 70 16 129/75 (93) 92 04/29/17 09:00 93 Room Air 04/29/17 07:14 93 21 04/29/17 07:12 98.5 64 16 135/65 (88) 93 04/29/17 03:28 98.1 67 17 136/63 (87) 96 04/28/17 23:22 18 04/28/17 23:07 98.1 81 17 163/72 (102) -: 04/29/17 0828 04/29/17 0828 Physical Exam General Appearance: No Acute Distress, Comfortable Eyes Eye Exam: Pupils Equal Throat Throat Exam: Oral Mucosa [place] & Moist Neck Neck Exam: Neck Supple Pulmonary Resp Exam: Breath Sounds Equal, Rhonchi, Decreased Bases Cardiology CV Exam: Regular, Normal Sinus Rhythm Gastrointestinal/Abdomen GI Exam: Soft, Non-Tender, Bowel Sounds Present Extremeties Extremities Exam: Trace Edema Neurologic Neuro Exam: Alert, Awake, Oriented Psychiatric Psych Exam: Appropriate Responses Assessment/Plan Assessment Summary: Anemia of CKD, Hypertension, End Stage Renal Disease Problem List: (1) Bipolar disorder ICD Codes: F31.9 - Bipolar disorder, unspecified Status: Chronic (2) Diastolic CHF, acute ICD Codes: I50.31 - Acute diastolic (congestive) heart failure Status: Acute (3) Hypertension ICD Codes: I10 - Essential (primary) hypertension Status: Chronic (4) Anemia ICD Codes: D64.9 - Anemia, unspecified Status: Acute (5) Dependent on hemodialysis ICD Codes: Z99.2 - Dependence on renal dialysis Status: Acute (6) End stage renal disease ICD Codes: N18.6 - End stage renal disease Status: Chronic Plan Patient has HD done as per schedule. BP is stable. Not in fluid over;load status. HD to continue MWF. Awaiting placement. Continue HD, to D/C to SNF. Problem Qualifiers (1) Bipolar disorder: Qualified Codes: F31.9 - Bipolar disorder, unspecified (2) Hypertension: Qualified Codes: I10 - Essential (primary) hypertension Jessica Colin MD Apr 29, 2017 21:59
[2017-04-30] VITALS: BP 127/58; PULSE 61; RESP 18; TEMP 98.4; O2SAT 99
[2017-04-30] MEDS: ACETAMINOPHEN 325 MG TAB PO PRN ×2 (03:28→17:22)
[2017-04-30 04:00] VITALS: BP 147/67; PULSE 71; RESP 17; TEMP 98.1; O2SAT 95
[2017-04-30] MEDS: RESP: ALBUTEROL 2.5 MG/3 ML NEB (PRN) NEB (06:24)
[2017-04-30 06:25] VITALS: O2SAT 94
[2017-04-30 08:21] VITALS: O2SAT 94
[2017-04-30] MEDS: SODIUM CHLORIDE 0.9% FLUSH 10 ML FLUSH IV FLUSH SCH (09:00)
[2017-04-30] MEDS: GELATIN 12 MM/7 MM FOAM TOP PRN (11:06)
[2017-04-30] MEDS: EPOETIN ALFA 10,000 UNITS/ML VIAL IV PUSH PRN (11:06)
--- NOTE | 2017-04-30 11:26 | HHI.NPPN ---
Subjective History of Present Illness 51-year-old female with past medical history of hypertension, history of bipolar disorder, anxiety, depression, chronic anemia, ischemic heart disease, hyperlipidemia, chronic anemia, end-stage renal disease on hemodialysis three times per week came to the emergency department because of placement issue. I was called to see the patient for management of dialysis. The patient has been on hemodialysis Wednesday, Wednesday and Wednesday. Additional Remarks Patient is alert, now on HD, feeling better. Review of Systems General Constitutional: Fatigue Cardiovascular Cardiac: Edema, KEITH Objective Data Data Vital Signs Date Time Temp Pulse Resp B/P (MAP) Pulse Ox O2 Delivery O2 Flow Rate FiO2 04/30/17 08:21 94 Nasal Cannula 2.00 04/30/17 06:25 94 Nasal Cannula 2.00 04/30/17 04:00 98.1 71 17 147/67 (93) 95 04/30/17 00:00 98.4 61 18 127/58 (81) 99 04/29/17 22:30 18 04/29/17 20:05 98.1 71 18 155/69 (97) 100 04/29/17 19:38 Nasal Cannula 2.00 04/29/17 19:16 94 04/29/17 18:44 96 Nasal Cannula 2.00 04/29/17 16:00 98.1 72 18 144/66 (92) 94 04/29/17 11:48 98.4 70 16 129/75 (93) 92 -: 04/29/17 0828 04/29/17 0828 Physical Exam General Appearance: No Acute Distress, Comfortable Eyes Eye Exam: Pupils Equal Throat Throat Exam: Oral Mucosa [place] & Moist Neck Neck Exam: Neck Supple Pulmonary Resp Exam: Breath Sounds Equal, Rhonchi, Decreased Bases Cardiology CV Exam: Regular, Normal Sinus Rhythm Gastrointestinal/Abdomen GI Exam: Soft, Non-Tender, Bowel Sounds Present Extremeties Extremities Exam: Trace Edema Neurologic Neuro Exam: Alert, Awake, Oriented Psychiatric Psych Exam: Appropriate Responses Assessment/Plan Assessment Summary: Anemia of CKD, Hypertension, End Stage Renal Disease Problem List: (1) Bipolar disorder ICD Codes: F31.9 - Bipolar disorder, unspecified Status: Chronic (2) Diastolic CHF, acute ICD Codes: I50.31 - Acute diastolic (congestive) heart failure Status: Acute (3) Hypertension ICD Codes: I10 - Essential (primary) hypertension Status: Chronic (4) Anemia ICD Codes: D64.9 - Anemia, unspecified Status: Acute (5) Dependent on hemodialysis ICD Codes: Z99.2 - Dependence on renal dialysis Status: Acute (6) End stage renal disease ICD Codes: N18.6 - End stage renal disease Status: Acute Plan Patient is clinically stable. BP is stable. Not in fluid over;load status. HD to continue MWF. Awaiting placement. HD now, remove fluid as tolerated. Problem Qualifiers (1) Bipolar disorder: Qualified Codes: F31.9 - Bipolar disorder, unspecified (2) Hypertension: Qualified Codes: I10 - Essential (primary) hypertension Jessica Colin MD Apr 30, 2017 11:26
[2017-04-30] MEDS: SEVELAMER CARBONATE 800 MG TAB PO SCH ×2 (13:00→14:00)
[2017-04-30 13:56] VITALS: BP 160/104; PULSE 83; RESP 21; TEMP 98.6; O2SAT 94
[2017-04-30] MEDS: DOCUSATE SODIUM 50 MG/SENNA 8.6 MG TAB PO SCH (14:00)
[2017-04-30] MEDS: ESCITALOPRAM OXALATE 10 MG TAB PO SCH (14:01)
[2017-04-30] MEDS: ALLOPURINOL 300 MG TAB PO SCH (14:01)
[2017-04-30] MEDS: GABAPENTIN 100 MG CAP PO SCH (14:01)
[2017-04-30] MEDS: CARVEDILOL 3.125 MG TAB PO SCH (14:01)
--- NOTE | 2017-04-30 14:08 | HHI.PR ---
Subjective Remarks Follow-up for failure to thrive. The patient is seen after dialysis today. She is asking for stool softener. Then she states she got muscle softener today. She states she had a large bowel movement yesterday. She still complains of pain in her right knee. She states she thought that the pain was from the old fracture she had in her knee. She is asking for pain medication for her knee. She's been eating well. No other acute complaints. Objective Vitals Vital Signs Date Time Temp Pulse Resp B/P (MAP) Pulse Ox O2 Delivery O2 Flow Rate FiO2 04/30/17 13:56 98.6 83 21 160/104 (122) 94 04/30/17 08:21 94 Nasal Cannula 2.00 04/30/17 06:25 94 Nasal Cannula 2.00 04/30/17 04:00 98.1 71 17 147/67 (93) 95 04/30/17 00:00 98.4 61 18 127/58 (81) 99 04/29/17 22:30 18 04/29/17 20:05 98.1 71 18 155/69 (97) 100 04/29/17 19:38 Nasal Cannula 2.00 04/29/17 19:16 94 04/29/17 18:44 96 Nasal Cannula 2.00 04/29/17 16:00 98.1 72 18 144/66 (92) 94 I/O 04/29/17 04/29/17 04/29/17 04/30/17 04/30/17 04/30/17 07:00 15:00 23:00 07:00 15:00 23:00 Output Total 3000 ml Balance -3000 ml Hemodialysis 3000 ml Result Diagram: 04/29/17 0828 04/29/17 0828 Imaging Last Impressions Knee X-Ray 04/29/17 0000 Signed Impressions: Service Date/Time: April 10:57 - CONCLUSION: 1. No acute fracture or joint dislocation. 2. Chronic sclerosis involving the lateral femoral condyle extending down to the articulating surface. This suggests previous old injury to the lateral femoral condyle. 3. Evidence of previous internal fixation of the patella. Da Wang MD Objective Remarks GENERAL: Well-developed well-nourished. In no acute distress. SKIN: Warm and dry. Dialysis fistula/graft in place on left chest wall. HEENT: Normocephalic. Pupils equal and round. Mucous membranes pink and moist. CARDIOVASCULAR: Regular rate and rhythm. No murmur appreciated. RESPIRATORY: No accessory muscle use. Clear to auscultation. Breath sounds equal bilaterally. GASTROINTESTINAL: Abdomen soft, non-tender, nondistended. Bowel sounds x4. MUSCULOSKELETAL: Right knee with some old scabs and full active and passive ROM. No clubbing or cyanosis. No edema. NEUROLOGICAL: Awake and alert. No focal neurological deficits. Moves upper and lower extremities spontaneously. Normal speech. PSYCHIATRIC: Appropriate mood and affect; insight and judgment fair. A/P Assessment and Plan 51-year-old female with past medical history of end-stage renal disease on dialysis, hypertension, COPD, and noncompliance who presented with placement and dialysis End-stage renal disease on HD -Rebar Bender Dr. Colin consulted, to continue dialysis (M,W,F). -Management per oleo hasher and renderer. COPD/hypertension/hyperlipidemia/noncompliance -Continue home medications, currently BP and O2 sat stable Disposition -Patient is now homeless and needs assistance with placement. -Case management consulted to assist with discharge planning, discussed with caseworker. Right knee pain: Chronic. Knee x-ray with no acute process, chronic sclerosis of the lateral femoral condyle due to old injury and previous internal fixation of the patella; chronic findings. -Continue Tylenol as needed for pain DVT Prophylaxis: SCDs Discharge Planning Discharge to facility when arranged. Jayson Salazar Apr 30, 2017 14:08
[2017-04-30] MEDS: CINACALCET HYDROCHLORIDE 30 MG TAB PO SCH (14:10)
[2017-04-30 16:18] VITALS: BP 157/68; PULSE 72; RESP 16; TEMP 97.6; O2SAT 97
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
== END 2017-04-30 17:57 ==
LOC: NEPC 10:32 → NEDA 14:45 → NEPGCP 20:02
PROVIDERS: ADMIT Hospitalist; ATTEND Hospitalist
DX: Z04.8 Encounter for examination and observation for other specified reasons (principal); Z74.2 Need for assistance at home and no other household member able to render care; I13.2 Hypertensive heart and chronic kidney disease with heart failure and with stage 5 chronic kidney disease, or end stage renal disease; I50.31 Acute diastolic (congestive) heart failure; N18.6 End stage renal disease; I25.9 Chronic ischemic heart disease, unspecified; F41.9 Anxiety disorder, unspecified; F31.9 Bipolar disorder, unspecified; D63.1 Anemia in chronic kidney disease; R53.1 Weakness; R06.02 Shortness of breath; Z99.2 Dependence on renal dialysis; Z91.19 Patient's noncompliance with other medical treatment and regimen; Z59.0 Homelessness; Z87.891 Personal history of nicotine dependence; J44.1 Chronic obstructive pulmonary disease with (acute) exacerbation; E78.00 Pure hypercholesterolemia, unspecified
CPT/HCPCS: 73564; 80048; 85025; 90935; 94640; 94664; 96374; 97110; 97116; 97161; 99285; G0378; G8987; G8988; J7613; Q4081

== ENCOUNTER 2017-06-15 17:51 | Inpatient (IN) | payer MEDICARE, OTHER ==
[~2017-06-15] VITALS: Ht 142.2 cm; Wt 59.5 kg
[2017-06-15] VITALS (7 sets, daily range): BP systolic 111–141; BP diastolic 56–65; PULSE 70–78; RESP 12–19; TEMP 98.5; O2SAT 90–99
[~2017-06-15 17:51] MED LIST changes: -HYDR-3799 PO; -HYDR-755 PO; -LORA-474 PO
[2017-06-15] MEDS ORDERED: SODIUM CHLORIDE 0.9% FLUSH 10 ML FLUSH IV FLUSH PRN ×2 (18:30→21:45)
--- NOTE | 2017-06-15 18:35 | PD ---
HPI Chief Complaint: Psychiatric Symptoms Time Seen by Provider: 18:03 Travel History International Travel<30 days: No Contact w/Intl Traveler<30days: No Traveled to known affect area: No History of Present Illness HPI 51-year-old female with history of chronic renal failure on dialysis, is brought in from a [facility] under [facility] act for suicidal ideation. Patient is a DNR in regards to her kidney disease, but goes to dialysis Wednesday and Wednesday. Patient states she had dialysis yesterday. Patient stays in a nursing facility as she has no else take care of her. Patient denies pain or other constitutional complaints at this time. She denies history of diabetes. She denies liver disease. She has no specific plan. She has no known drug allergies. PFSH Past Medical History Hx Anticoagulant Therapy: Yes Anemia: Yes Asthma: No Autoimmune Disease: No Blood Disorders: No Bipolar Disorder: Yes Anxiety: Yes Depression: Yes Heart Rhythm Problems: Yes (palpitations) Cancer: No Cardiovascular Problems: Yes High Cholesterol: Yes Chest Pain: Yes Congestive Heart Failure: Yes COPD: Yes Cerebrovascular Accident: No Diabetes: No Dialysis: Yes (WED, WED, WED) Diminished Hearing: No Endocrine: No Gastrointestinal Disorders: Yes GERD: Yes Genitourinary: Yes Hiatal Hernia: No Hypertension: Yes Immune Disorder: No Implanted Vascular Access Dvce: Yes Kidney Stones: No Musculoskeletal: Yes Neurologic: Yes Psychiatric: Yes Reproductive: No Respiratory: Yes Renal Failure: Yes Schizophrenia: Yes Sleep Apnea: No Thyroid Disease: No Ulcer: No Tetanus Vaccination: Unknown ?: Not Menopausal: Yes : 4 Para: 3 : 1 Past Surgical History AICD: No Arteriovenous Shunt: Yes (left chest) Body Medical Devices: A/V SHUNT- LEFT CHEST Section: Yes Ear Surgery: Yes (pe tubes as a child) Gynecologic Surgery: Yes ( X 3 - ) Joint Replacement: Yes (right knee ) Oral Surgery: Yes (teeth pulled) Pacemaker: No Other Surgery: Yes (cyst ovary drained/ AV- SHUNT- LEFT CHEST-left arm av shunt nonfunctioning) Social History Alcohol Use: No Tobacco Use: Yes Substance Use: No (none since 2005) Allergies-Medications (Allergen,Severity, Reaction): Coded Allergies: No Known Allergies (Unverified , 04/26/17) Reported Meds & Prescriptions Reported Meds & Active Scripts Active Norvasc (Amlodipine Besylate) 10 Mg Tab 10 Mg PO DAILY 30 Days Coreg (Carvedilol) 3.125 Mg Tab 3.125 Mg PO BID 30 Days Atorvastatin (Atorvastatin Calcium) 20 Mg Tab 20 Mg PO HS Walker with Front Wheels (Device) 1 Mis Mis Ea .ROUTE DIRECTED Trazodone (Trazodone HCl) 50 Mg Tab 100 Mg PO HS 30 Days Latuda (Lurasidone) 20 Mg Tab 20 Mg PO DAILY Lexapro (Escitalopram Oxalate) 10 Mg Tab 20 Mg PO DAILY Fibercon (Calcium Polycarbophil) 625 Mg Tab 1,250 Mg PO Q12HR PRN Polyethylene Glycol 3350 Powder (Polyethylene Glycol) 17 Gm Pow 17 Gm PO DAILY 14 Days Katalina-Colace (Sennosides-Docusate Sodium) 8.6-50 Mg Tab 1 Tab PO BID Oxygen tank (Oxygen) 1 Ea Tank 2 Liter [employer]OS[employer]H.[employer] CONTINUOUS Oxygen Concentrator Portable Gaseous 2 L/min via Nasal Cannula Continuous For 99 months Reported Prilosec (Omeprazole Magnesium) 20 Mg Tab Renvela (Sevelamer Carbonate) 800 Mg Tab 800 Mg PO TID Nephrocaps (B-Complex W/ C & Folic Acid) 1 Cap 1 Cap PO DAILY If on dialysis, take after treatment. Gabapentin 100 Mg Cap 200 Mg PO BID Sensipar (Cinacalcet) 60 Mg Tab 60 Mg PO DAILY Allopurinol 300 Mg Tab 300 Mg PO DAILY Albuterol Neb (Albuterol Sulfate) 2.5 Mg/0.5 Ml Neb 2.5 Mg NEB Q6HR NEB Note: The Albuterol Sulfate Inhalation Solution is concentrated and must be diluted. Read complete instructions carefully before using. Auryxia (Ferric Citrate) 210 Mg Tab 210 Mg PO 2-3 TIMES A DAY Take with meals 2-3 times a day Reglan (Metoclopramide HCl) 5 Mg Tab 5 Mg PO TIDAC Review of Systems Except as stated in HPI: all other systems reviewed are Neg General / Constitutional: No: Fever Eyes: No: Visual changes HENT: No: Headaches Cardiovascular: No: Chest Pain or Discomfort Respiratory: No: Shortness of Breath Gastrointestinal: No: Abdominal Pain Genitourinary: No: Dysuria Musculoskeletal: No: Pain Skin: No Rash Neurologic: No: Weakness Psychiatric: No: Depression Endocrine: No: Polydipsia Hematologic/Lymphatic: No: Easy Bruising Physical Exam Narrative GENERAL: Patient appears sad but otherwise in no acute distress. SKIN: Warm and dry. Patient appears somewhat jaundiced and has poor turgor. HEAD: Atraumatic. Normocephalic. EYES: Pupils equal and round. No scleral icterus. No injection or drainage. ENT: No nasal bleeding or discharge. Mucous membranes pink and moist. Pharynx is clear. Airway is patent. NECK: Trachea midline. Supple and nontender.. CARDIOVASCULAR: Regular rate and rhythm. RESPIRATORY: No accessory muscle use. Clear to auscultation. Breath sounds equal bilaterally. GASTROINTESTINAL: Abdomen soft, non-tender, nondistended. Hepatic and splenic margins not palpable. MUSCULOSKELETAL: Extremities without clubbing, cyanosis, or edema. No obvious deformities. NEUROLOGICAL: Awake and alert. No obvious cranial nerve deficits. Motor grossly within normal limits. Five out of 5 muscle strength in the arms and legs. Normal speech. PSYCHIATRIC: Appropriate mood and affect; insight and judgment normal. Data Data Last Documented VS Vital Signs Date Time Temp Pulse Resp B/P (MAP) Pulse Ox O2 Delivery O2 Flow Rate FiO2 06/15/17 18:08 98.5 75 19 141/65 (90) 97 Room Air Orders Orders Complete Blood Count With Diff (06/15/17 18:28) Comprehensive Metabolic Panel (06/15/17 18:28) Prothrombin Time / Inr (Pt) (06/15/17 18:28) Act Partial Throm Time (Ptt) (06/15/17 18:28) Iv Access Insert/Monitor (06/15/17 18:28) Ecg Monitoring (06/15/17 18:28) Oximetry (06/15/17 18:28) Sodium Chloride 0.9% Flush (Ns Flush) (06/15/17 18:30) Electrocardiogram (06/15/17 18:28) Ammonia (06/15/17 18:28) Psych Screen (06/15/17 18:28) Diet Renal (06/15/17 Dinner) MDM Medical Decision Making Medical Screen Exam Complete: Yes Emergency Medical Condition: Yes Medical Record Reviewed: Yes Differential Diagnosis Suicidal ideation. Delatorre act. Stage IV renal disease on dialysis. Narrative Course Labs ordered including CBC, CMP, ammonia level, PT PTT and INR. Psych order is placed. Renal diet is ordered. 1900 hrs. labs are pending. Patient is discussed with Dr. Tracy who assumes care of the patient and will determine final disposition. Condition: Stable Francois Adame Jun 15, 2017 18:35
[2017-06-15 19:59] LABS: AUTOMATED NEUTROPHIL # 3.6 TH/MM3 (1.8-7.7); BASOPHIL % 0.8 % (0.0-2.0); EOSINOPHIL # 0.1 TH/MM3 (0-0.4); EOSINOPHIL % 2.4 % (0.0-4.0); HEMATOCRIT 25.5 % (35.0-46.0); HEMO FLAGS DIFF FINAL; LYMPH % 17.7 % (9.0-44.0); LYMPHOCYTE # 0.9 TH/MM3 (1.0-4.8); MEAN CELL VOLUME 101.1 FL (80.0-100.0); MEAN CORPUSCULAR HEMOGLOBIN 32.7 PG (27.0-34.0); MEAN CORPUSCULAR HGB CONC 32.3 % (32.0-36.0); MONO % 9.7 % (0.0-8.0); NEUT % 69.4 % (16.0-70.0); PLATELET COUNT 130 TH/MM3 (150-450); RED BLOOD COUNT 2.52 MIL/MM3 (4.00-5.30); RED CELL DISTRIBUTION WIDTH 19.7 % (11.6-17.2); WHITE BLOOD COUNT 5.1 TH/MM3 (4.0-11.0)
[2017-06-15 20:20] LABS: ALT (GPT) 44 U/L (10-53); ANION GAP 12 MEQ/L (5-15); AST (GOT) 31 U/L (15-37); BICARBONATE 24.5 MEQ/L (21.0-32.0); BLOOD UREA NITROGEN 70 MG/DL (7-18); CHLORIDE 93 MEQ/L (98-107); GLOMERULAR FILTRATION RATE 8 ML/MIN (>89); POTASSIUM 6.4 MEQ/L (3.5-5.1); SODIUM (NA) 129 MEQ/L (136-145)
[2017-06-15 20:23] LABS: ALKALINE PHOSPHATASE 268 U/L (45-117); APTT (PATIENT) 28.4 SEC (24.3-30.1); INTERNATIONAL NORMALIZED RATIO 1.1 RATIO; PROTHROMBIN TIME - PATIENT 11.3 SEC (9.8-11.6); TOTAL BILIRUBIN ADULT 0.4 MG/DL (0.2-1.0)
--- NOTE | 2017-06-15 20:43 | PD ---
Physical Exam Narrative GENERAL: SKIN: Warm and dry. HEAD: Atraumatic. Normocephalic. EYES: Pupils equal and round. No scleral icterus. No injection or drainage. ENT: No nasal bleeding or discharge. Mucous membranes pink and moist. NECK: Trachea midline. No JVD. CARDIOVASCULAR: Regular rate and rhythm. RESPIRATORY: No accessory muscle use. Clear to auscultation. Breath sounds equal bilaterally. GASTROINTESTINAL: Abdomen soft, non-tender, nondistended. MUSCULOSKELETAL: Extremities without clubbing, cyanosis, or edema. No obvious deformities. NEUROLOGICAL: Awake and alert. No obvious cranial nerve deficits. Motor grossly within normal limits. Five out of 5 muscle strength in the arms and legs. Normal speech. PSYCHIATRIC: Appropriate mood and affect; insight and judgment normal. Data Data Last Documented VS Vital Signs Date Time Temp Pulse Resp B/P (MAP) Pulse Ox O2 Delivery O2 Flow Rate FiO2 06/15/17 21:30 90 Room Air 06/15/17 18:08 98.5 75 19 Orders Orders Complete Blood Count With Diff (06/15/17 18:28) Comprehensive Metabolic Panel (06/15/17 18:28) Prothrombin Time / Inr (Pt) (06/15/17 18:28) Act Partial Throm Time (Ptt) (06/15/17 18:28) Iv Access Insert/Monitor (06/15/17 18:28) Ecg Monitoring (06/15/17 18:28) Oximetry (06/15/17 18:28) Sodium Chloride 0.9% Flush (Ns Flush) (06/15/17 18:30) Ammonia (06/15/17 18:28) Psych Screen (06/15/17 18:28) Diet Renal (06/15/17 Dinner) Electrocardiogram (06/15/17 20:40) Potassium, Serum (K) (06/15/17 23:40) Insulin Human Regular Inj (Novolin R Inj (06/15/17 20:45) Dextrose 50% In Ankur (Vial) Inj (D50w (Vi (06/15/17 20:45) Sodium Bicarbonate 8.4% Inj (Sodium Bica (06/15/17 20:45) Albuterol Concentrated Neb (Albuterol Co (06/15/17 20:45) Sodium Polysty Sulfate Liq (Kayexalate L (06/15/17 20:45) Admit Order (Ed Use Only) (06/15/17 ) Airline Operations Agent / Telemetry MOOK.Q8H (06/15/17 21:31) Diet Renal (06/16/17 Breakfast) Activity Bed Rest (06/15/17 21:31) Notify Dr: Other (06/15/17 21:31) Place In Observation (06/15/17 ) Vital Signs (Adult) Q4H (06/15/17 21:31) Activity Oob With Assistance (06/15/17 21:31) Airline Operations Agent / Telemetry .CONTINUOUS (06/15/17 21:31) Sodium Chloride 0.9% Flush (Ns Flush) (06/15/17 21:45) Sodium Chloride 0.9% Flush (Ns Flush) (06/16/17 09:00) Basic Metabolic Panel (Bmp) (06/16/17 06:00) Complete Blood Count With Diff (06/16/17 06:00) Case Management Consult (06/15/17 21:31) Naloxone Inj (Narcan Inj) (06/15/17 21:45) Labs Laboratory Tests Test 06/15/17 19:28 White Blood Count 5.1 TH/MM3 Red Blood Count 2.52 MIL/MM3 Hemoglobin 8.2 GM/DL Hematocrit 25.5 % Mean Corpuscular Volume 101.1 FL Mean Corpuscular Hemoglobin 32.7 PG Mean Corpuscular Hemoglobin Concent 32.3 % Red Cell Distribution Width 19.7 % Platelet Count 130 TH/MM3 Mean Platelet Volume 8.9 FL Neutrophils (%) (Auto) 69.4 % Lymphocytes (%) (Auto) 17.7 % Monocytes (%) (Auto) 9.7 % Eosinophils (%) (Auto) 2.4 % Basophils (%) (Auto) 0.8 % Neutrophils # (Auto) 3.6 TH/MM3 Lymphocytes # (Auto) 0.9 TH/MM3 Monocytes # (Auto) 0.5 TH/MM3 Eosinophils # (Auto) 0.1 TH/MM3 Basophils # (Auto) 0.0 TH/MM3 CBC Comment DIFF FINAL Differential Comment Prothrombin Time 11.3 SEC Prothromb Time International Ratio 1.1 RATIO Activated Partial Thromboplast Time 28.4 SEC Blood Urea Nitrogen 70 MG/DL Creatinine 5.50 MG/DL Random Glucose 87 MG/DL Total Protein 7.5 GM/DL Albumin 3.7 GM/DL Calcium Level 8.6 MG/DL Alkaline Phosphatase 268 U/L Aspartate Amino Transf (AST/SGOT) 31 U/L Alanine Aminotransferase (ALT/SGPT) 44 U/L Total Bilirubin 0.4 MG/DL Sodium Level 129 MEQ/L Potassium Level 6.4 MEQ/L Chloride Level 93 MEQ/L Carbon Dioxide Level 24.5 MEQ/L Anion Gap 12 MEQ/L Estimat Glomerular Filtration Rate 8 ML/MIN Ammonia 32 MCMOL/L [facility] Medical Record Reviewed: Yes Supervised Visit with MICHAEL: Yes Interpretation(s) NSR 73, NORMAL INTEERVALS, NO STEMI PATTERN, NO PEAKED T WAVES NOTED Narrative Course PATIENT FOUND IN HYPERKALEMIA, GIVEN INSULIN/D50/KAYEXALATE/ALBUTEROL AND BICARBONATE. PATIENT WAS REEVALUATED AND DECISION MADE TO ADMIT TO MEDICINE FOR FURTHER CARE AND DIALYSIS. AFTER HYPERKALEMIA RESOLVES PATIENT IS CLEAR FOR PSYCHIATRIC EVALUATION. Critical Care Narrative CRITICAL CARE NOTE: With evaluation of the patient, labs, EKG, receipt of radiologic studies, administration of medications, reevaluation the patient and discussion of the patient with the admitting physicians, the total critical care time was [30] minutes. Time to perform other separately billable procedures was not included in the critical care time. Diagnosis Primary Impression: Hyperkalemia Additional Impression: SEARS ACT Admitting Information Admitting Physician Requests: Observation Condition: Stable Erwin Tracy MD Jun 15, 2017 20:43
[2017-06-15] MEDS ORDERED: SODIUM BICARBONATE 8.4% SOLN 50 MEQ/50 ML VIAL SLOW IVP ONE (20:45)
[2017-06-15] MEDS ORDERED: SODIUM POLYSTYRENE SULFONATE SUSP 15 GM/60 ML CUP PO ONE (20:45)
[2017-06-15] MEDS ORDERED: RESP: ALBUTEROL CONC 2.5 MG/0.5 ML NEB INH ONE (20:45)
[2017-06-15] MEDS ORDERED: DEXTROSE 50% IN WATER 50 ML VIAL(D50) IV PUSH ONE (20:45)
[2017-06-15] MEDS ORDERED: INSULIN HUMAN REGULAR 1,000 UNITS/10 ML VIAL IV PUSH ONE (20:45)
[2017-06-15] MEDS ORDERED: NALOXONE HCL 0.4 MG/ML AMP IV PUSH PRN (21:45)
--- NOTE | 2017-06-15 22:37 | EKG ---
Date Performed: 06/15/2017 Time Performed: 19:09:31 PTAGE: 51 years EKG: Sinus rhythm NORMAL ECG PREVIOUS TRACING : 04/26/2017 01.06 Compared to prior tracing no significant change DOCTOR: Amina Juarez Interpretating Date/Time 06/15/2017 22:37:38
[2017-06-15] MEDS ORDERED: DOXY100C PO (23:07)
[2017-06-15] MEDS ORDERED: RISP3 PO (23:19)
[2017-06-15] MEDS ORDERED: GENT0.1O2 TOPICAL (23:19)
[2017-06-15] MEDS ORDERED: ZINC220T PO (23:19)
[2017-06-15] MEDS ORDERED: VITA250T3 PO (23:19)
[2017-06-15] MEDS ORDERED: DOCU8.6T PO (23:19)
--- NOTE | 2017-06-15 23:31 | HHI.HP ---
HPI Service [facility] Primary [facility] Physician Haider Montes MD Admission Diagnosis HYPERKALEMIA,ESRD-DIALYSIS,DELATORRE ACT Diagnoses: Travel History International Travel<30 Days: No Contact w/Intl Traveler <30 Da: No Traveled to Known Affected Are: No History of Present Illness hx from patient, ER communication, NH transfer notes, and review of records stated was having bad thoughts and was sent to hospital under delatorre act by NH denies any other symptoms ESRD on HD - M, W, F K 6.4 on routine labs here no ekg changes cocktail given in ER admitted for tele monitoring, electrolyte correction has chronic cough denies any other symptoms is quite sleepy during my exam though pleasant and wakes up to answer questions Review of Systems Except as stated in HPI: all other systems reviewed are Neg Past Family Social History Past Medical History esrd on hd copd htn chf- diastolic depression gerd hyperlipidemia gout anemia of chronic dx Past Surgical History av fistula placement c section right knee surgery. Ovarian cyst removed Reported Medications Medications from custodial reviewed Allergies: Coded Allergies: No Known Allergies (Verified Adverse Reaction, Unknown, 06/15/17) Family History Breast cancer history in the family Social History Smokes about half a pack a day. Denies any alcohol abuse. Lives at [facility]. Physical Exam Vital Signs Vital Signs Date Time Temp Pulse Resp B/P (MAP) Pulse Ox O2 Delivery O2 Flow Rate FiO2 06/15/17 21:38 70 12 121/58 (79) 97 Nasal Cannula 2.00 06/15/17 21:30 90 Room Air 06/15/17 20:58 95 06/15/17 18:08 98.5 75 19 141/65 (90) 97 Room Air 06/15/17 18:07 76 19 06/15/17 18:01 98.5 78 19 141/65 (90) 96 Physical Exam GENERAL: This is a well-nourished, well-developed patient, in no apparent distress. Looks quite sleepy. SKIN: No rashes, ecchymoses or lesions. Cool and dry. HEAD: Atraumatic. Normocephalic. No temporal or scalp tenderness. EYES: . No scleral icterus. No injection or drainage. ENT: Nose without bleeding, purulent drainage or septal hematoma. Airway patent. NECK: Trachea midline. No JVD Supple, nontender, no meningeal signs. CARDIOVASCULAR: Regular rate and rhythm without murmurs, gallops, or rubs. left chest av fistua RESPIRATORY: Clear to auscultation. Breath sounds equal bilaterally. No wheezes , rales, or rhonchi. GASTROINTESTINAL: Abdomen soft, non-tender, nondistended. No guarding. MUSCULOSKELETAL: Extremities without clubbing, cyanosis, or edema. No calf tenderness. NEUROLOGICAL: Awake and alert. Motor and sensory grossly within normal limits. Normal speech. Laboratory Laboratory Tests Test 06/15/17 19:28 White Blood Count 5.1 Red Blood Count 2.52 Hemoglobin 8.2 Hematocrit 25.5 Mean Corpuscular Volume 101.1 Mean Corpuscular Hemoglobin 32.7 Mean Corpuscular Hemoglobin Concent 32.3 Red Cell Distribution Width 19.7 Platelet Count 130 Mean Platelet Volume 8.9 Neutrophils (%) (Auto) 69.4 Lymphocytes (%) (Auto) 17.7 Monocytes (%) (Auto) 9.7 Eosinophils (%) (Auto) 2.4 Basophils (%) (Auto) 0.8 Neutrophils # (Auto) 3.6 Lymphocytes # (Auto) 0.9 Monocytes # (Auto) 0.5 Eosinophils # (Auto) 0.1 Basophils # (Auto) 0.0 CBC Comment DIFF FINAL Differential Comment Prothrombin Time 11.3 Prothromb Time International Ratio 1.1 Activated Partial Thromboplast Time 28.4 Blood Urea Nitrogen 70 Creatinine 5.50 Random Glucose 87 Total Protein 7.5 Albumin 3.7 Calcium Level 8.6 Alkaline Phosphatase 268 Aspartate Amino Transf (AST/SGOT) 31 Alanine Aminotransferase (ALT/SGPT) 44 Total Bilirubin 0.4 Sodium Level 129 Potassium Level 6.4 Chloride Level 93 Carbon Dioxide Level 24.5 Anion Gap 12 Estimat Glomerular Filtration Rate 8 Ammonia 32 Result Diagram: 06/15/17192706/15/171927 Caprini VTE Risk Assessment Caprini VTE Risk Assessment: Mod/High Risk (score >= 2) Caprini Risk Assessment Model Point Value = 1 Point Value = 2 Point Value = 3 Point Value = 5 Age 41-60 Minor surgery BMI > 25 kg/m2 Swollen legs Varicose veins or History of unexplained or recurrent spontaneous Oral contraceptives or hormone replacement Sepsis (< 1 month) Serious lung disease, including pneumonia (< 1 month) Abnormal pulmonary function Acute myocardial infarction Congestive heart failure (< 1 month) History of inflammatory bowel disease Medical patient at bed rest Age 61-74 Arthroscopic surgery Major open surgery (> 45 min) Laparoscopic surgery (> 45 min) Malignancy Confined to bed (> 72 hours) Immobilizing plaster cast Central venous access Age >= 75 History of VTE Family history of VTE Factor V Leiden Prothrombin [id number] Lupus anticoagulant Anticardiolipin antibodies Elevated serum homocysteine Heparin-induced thrombocytopenia Other congenital or acquired thrombophilia Stroke (< 1 month) Elective arthroplasty Hip, pelvis, or leg fracture Acute spinal cord injury (< 1 month) Prophylaxis Regimen Total Risk Factor Score Risk Level Prophylaxis Regimen 0-1 Low Early ambulation 2 Moderate Order ONE of the following: *Sequential Compression Device (SCD) *Heparin 5000 units SQ BID 3-4 Higher Order ONE of the following medications: *Heparin 5000 units SQ TID *Enoxaparin/Lovenox 40 mg SQ daily (WT < 150 kg, CrCl > 30 mL/min) *Enoxaparin/Lovenox 30 mg SQ daily (WT < 150 kg, CrCl > 10-29 mL/min) *Enoxaparin/Lovenox 30 mg SQ BID (WT < 150 kg, CrCl > 30 mL/min) AND/OR *Sequential Compression Device (SCD) 5 or more Highest Order ONE of the following medications: *Heparin 5000 units SQ TID (Preferred with Epidurals) *Enoxaparin/Lovenox 40 mg SQ daily (WT < 150 kg, CrCl > 30 mL/min) *Enoxaparin/Lovenox 30 mg SQ daily (WT < 150 kg, CrCl > 10-29 mL/min) *Enoxaparin/Lovenox 30 mg SQ BID (WT < 150 kg, CrCl > 30 mL/min) AND *Sequential Compression Device (SCD) Assessment and Plan Assessment and Plan Impression: Delatorre act status Suicidal ideation Hyperkalemia End-stage renal disease on hemodialysis copd htn chf- diastolic depression gerd hyperlipidemia gout anemia of chronic dx Plan: Sitter at bedside. Psychiatry consult. Telemetry monitoring. Patient received cocktail in ER for treatment of her hyperkalemia. Repeat BMP now at midnight If needed, will give further treatment of hyperkalemia. Repeat BMP in a.m. Dialysis in a.m. unless there is persistent electrolyte imbalance. Consult patient's skull splitter. Resume home meds. DVT prophylaxis on heparin. Physician Certification Order for Inpatient Services The services are ordered in accordance with Medicare regulations or non- Medicare payer requirements, as applicable. In the case of services not specified as inpatient-only, they are appropriately provided as inpatient services in accordance with the 2-midnight benchmark. days is the estimated time the patient will need to remain in the hospital, assuming treatment plan goals are met and no additional complications. Talisha Aldrich MD Jun 15, 2017 23:31
[2017-06-16] VITALS (10 sets, daily range): BP systolic 97–147; BP diastolic 55–68; PULSE 68–85; RESP 13–22; TEMP 97.6–98.5; O2SAT 97–100
[2017-06-16] MEDS ORDERED: PILL SPLITTER OTHER PRN (00:45)
[2017-06-16 01:16] LABS: BICARBONATE 29.6 MEQ/L (21.0-32.0)
[2017-06-16 01:17] LABS: POTASSIUM 5.7 MEQ/L (3.5-5.1)
[2017-06-16] MEDS: RESP: ALBUTEROL 2.5 MG/3 ML NEB (SCH) NEB ×4 (03:42→20:28)
[2017-06-16] MEDS ORDERED: RESP: ALBUTEROL CONC 2.5 MG/0.5 ML NEB NEB SCH (04:00)
[2017-06-16] MEDS: HEPARIN SODIUM - SQ 10,000 UNITS/ML VIAL SQ SCH ×2 (05:35→13:52)
[2017-06-16] MEDS: METOCLOPRAMIDE HCL 10 MG TAB PO SCH ×3 (08:00→16:27)
[2017-06-16 08:05] LABS: AUTOMATED NEUTROPHIL # 2.1 TH/MM3 (1.8-7.7); BASOPHIL % 0.8 % (0.0-2.0); EOSINOPHIL # 0.1 TH/MM3 (0-0.4); EOSINOPHIL % 2.8 % (0.0-4.0); HEMO FLAGS DIFF FINAL; LYMPH % 26.5 % (9.0-44.0); MEAN CELL VOLUME 101.6 FL (80.0-100.0); MEAN CORPUSCULAR HEMOGLOBIN 32.5 PG (27.0-34.0); MONO % 11.6 % (0.0-8.0); NEUT % 58.3 % (16.0-70.0); PLATELET COUNT 120 TH/MM3 (150-450); RED BLOOD COUNT 2.66 MIL/MM3 (4.00-5.30); RED CELL DISTRIBUTION WIDTH 19.9 % (11.6-17.2); WHITE BLOOD COUNT 3.6 TH/MM3 (4.0-11.0)
[2017-06-16 08:36] LABS: BICARBONATE 28.3 MEQ/L (21.0-32.0); POTASSIUM 4.8 MEQ/L (3.5-5.1)
[2017-06-16] MEDS: SEVELAMER CARBONATE 800 MG TAB PO SCH ×3 (08:41→16:27)
[2017-06-16] MEDS ORDERED: CARVEDILOL 3.125 MG TAB PO SCH (09:00)
[2017-06-16] MEDS ORDERED: ASCORBIC ACID 500 MG TAB PO SCH (09:00)
[2017-06-16] MEDS ORDERED: ESCITALOPRAM OXALATE 10 MG TAB PO SCH (09:00)
[2017-06-16] MEDS ORDERED: GABAPENTIN 100 MG CAP PO SCH (09:00)
[2017-06-16] MEDS ORDERED: SODIUM CHLORIDE 0.9% FLUSH 10 ML FLUSH IV FLUSH SCH (09:00)
[2017-06-16] MEDS ORDERED: ALLOPURINOL 100 MG TAB PO SCH (09:00)
[2017-06-16] MEDS ORDERED: risperiDONE 3 MG TAB PO SCH (09:00)
[2017-06-16] MEDS ORDERED: DOCUSATE SODIUM 50 MG/SENNA 8.6 MG TAB PO SCH (09:00)
[2017-06-16] MEDS ORDERED: VITAMIN B CMPLX/VITC/FOLIC AC CAP PO SCH (09:00)
[2017-06-16] MEDS ORDERED: cloNIDine HCL 0.1 MG TAB PO PRN (09:15)
[2017-06-16] MEDS ORDERED: SODIUM CHLORIDE 0.9% FLUSH 10 ML FLUSH IV FLUSH PRN (09:15)
[2017-06-16] MEDS ORDERED: HEPARIN SODIUM - IV 10,000 UNITS/10 ML VIAL OTHER PRN (09:15)
[2017-06-16] MEDS ORDERED: NITROGLYCERIN 0.4 MG SL 25 TABS/BTL SL PRN (09:15)
[2017-06-16] MEDS ORDERED: GENTAMICIN SULFATE (DIALYSIS USE ONLY) 20 MG/2 ML VIAL OTHER PRN (09:15)
[2017-06-16] MEDS ORDERED: ALBUMIN 25% 25 GM/100 ML BAG IV PRN (09:15)
[2017-06-16] MEDS ORDERED: diphenhydrAMINE HCL 25 MG CAP PO PRN (09:15)
[2017-06-16] MEDS ORDERED: MANNITOL 12.5 GM/50 ML VIAL IV PUSH PRN (09:15)
[2017-06-16] MEDS ORDERED: ONDANSETRON HCL 4 MG/2 ML VIAL IV PUSH PRN (09:15)
[2017-06-16] MEDS ORDERED: SODIUM CHLOR 0.9% 1000 ML OTHER PRN ×2 (09:15)
[2017-06-16] MEDS ORDERED: HEPARIN SODIUM - IV 10,000 UNITS/10 ML VIAL IV FLUSH PRN (09:15)
[2017-06-16] MEDS ORDERED: GELATIN 12 MM/7 MM FOAM TOPICAL PRN (09:15)
[2017-06-16] MEDS ORDERED: NS 250 ML IV PRN (09:15)
[2017-06-16] MEDS ORDERED: ACETAMINOPHEN 325 MG TAB PO PRN (09:30)
--- NOTE | 2017-06-16 10:55 | PD.PSY.CON ---
Provisional Diagnosis Admission Date Jun 15, 2017 at 22:09 [place] I. Bipolar disorder type I, current episode depressive [place] II. Deferred [place] III. Chronic kidney disease, on hemodialysis History of Present Illness Service Psychiatry Consult Requested By ER team Reason for Consult Suicidal ideation Primary Care Physician Haider Montes MD HPI The patient is a 51 year-old woman, domiciled in a correction, recently from her , unemployed, supported by [facility] with psychiatric history bipolar disorder, multiple psychiatric hospitalizations, last hospitalization was here at [facility] in March 2017, she was discharged Risperdal 2 mg at bedtime escitalopram 20 mg, [id number] mg at bedtime, previous suicidal attempts, medical history of chronic kidney disease on dialysis presents to the emergency room under Delatorre act for evaluation of suicidal ideation. On initial evaluation her potassium was 6.4. She was hospitalized for electrolyte correction. On psychiatric evaluation patient is distant, superficially cooperative. Patient states she has had increasing suicidal thoughts over the past several weeks now since she from her . "But the truth is that I am just depressed for no reason". She has no specific reason for being suicidal or any plan" but I feel I want to ". She denies any medical complaints at this time. Denies drug or alcohol use. She last had dialysis this morning. Patient makes urine several times per day. Patient has history of bipolar disorder but she has been taking her medications and she was responding find until about 2 weeks ago. The patient is fully oriented 3, no fluctuation of consciousness, no attention deficit, running in paranoia, delusions, agitation or aggressive behavior. Review of Systems Constitutional: DENIES: Diaphoretic episodes, Fatigue, Fever, Weight gain, Weight loss, Chills, Dizziness, Change in appetite, Night Sweats Endocrine: DENIES: Abnorml menstrual pattern, Heat/cold intolerance, Polydipsia , Polyuria, Polyphagia Eyes: DENIES: Blurred vision, Diplopia, Eye inflammation, Eye pain, Vision loss , Photosensitivity, Double Vision Ears, nose, mouth, throat: DENIES: Tinnitus, Hearing loss, Vertigo, Nasal discharge, Oral lesions, Throat pain, Hoarseness, Ear Pain, Running Nose, Epistaxis, Sinus Pain, Toothache, Odynophagia Respiratory: DENIES: Apneas, Cough, Snoring, Wheezing, Hemoptysis, Sputum production, Shortness of breath Cardiovascular: DENIES: Chest pain, Palpitations, Syncope, Dyspnea on Exertion , PND, Lower Extremity Edema, Orthopnea, Claudication Gastrointestinal: DENIES: Abdominal pain, Black stools, Bloody stools, Constipation, Diarrhea, Nausea, Vomiting, Difficulty Swallowing, Anorexia Genitourinary: DENIES: Abnormal vaginal bleeding, Dysmenorrhea, Dyspareunia, Sexual dysfunction, Urinary frequency, Urinary incontinence, Urgency, Hematuria , Dysuria, Nocturia, Vaginal discharge Musculoskeletal: DENIES: Joint pain, Muscle aches, Stiffness, Joint Swelling, Back pain, Neck pain Integumentary: DENIES: Abnormal pigmentation, Pruritus, Rash, Nail changes, Breast masses, Breast skin changes, Nipple discharge Hematologic/lymphatic: DENIES: Bruising, Lymphadenopathy Immunologic/allergic: DENIES: Eczema, Urticaria Neurologic: DENIES: Abnormal gait, Headache, Localized weakness, Paresthesias, Seizures, Speech Problems, Tremor, Poor Balance Psychiatric: COMPLAINS OF: Depression, Suicidal Ideation, DENIES: Anxiety, Confusion, Mood changes, Hallucinations, Agitation, Homicidal Ideation, Delusions Past Family Social History Coded Allergies: No Known Allergies (Verified Allergy, Unknown, 06/16/17) Active Scripts Amlodipine (Norvasc) 10 Mg Tab, 10 MG PO DAILY for Blood Pressure Management for 30 Days, #30 TAB Prov:Rosie Nunez 04/09/17 Carvedilol (Coreg) 3.125 Mg Tab, 3.125 MG PO BID for Blood Pressure Management for 30 Days, #60 TAB Prov:Rosie Nunez 04/09/17 Atorvastatin (Atorvastatin) 20 Mg Tab, 20 MG PO HS for Cholesterol Management, # 30 TAB 0 Refills Prov:Rosie Nunez 04/09/17 Walker with Front Wheels (Walker with Front Wheels) 1 Mis Mis, EA .ROUTE DIRECTED, #1 0 Refills Prov:Rosie Nunez 04/08/17 Trazodone (Trazodone) 50 Mg Tab, 100 MG PO HS for health for 30 Days, TAB Prov:Darnell Castillo MD 03/30/17 Escitalopram (Lexapro) 10 Mg Tab, 20 MG PO DAILY for health, #30 TAB 0 Refills Prov:Darnell Castillo MD 03/30/17 Calcium Polycarbophil (Fibercon) 625 Mg Tab, 1250 MG PO Q12HR Y for CONSTIPATION , #60 TAB 0 Refills Prov:Shilo Greer MD 12/19/16 Polyethylene Glycol 3350 Powder (Polyethylene Glycol 3350 Powder) 17 Gm Pow, 17 GM PO DAILY for Constipation for 14 Days, BOTTLE Prov:Jayson Salazar 12/07/16 Oxygen tank (Oxygen tank) 1 Ea Tank, 2 LITER JOSIAH.CANULA CONTINUOUS for HYPOXEMIA PREVENTION, #2 CYLINDER Oxygen Concentrator Portable Gaseous 2 L/min via Nasal Cannula Continuous For 99 months Prov:Jayson Salazar 12/06/16 Reported Medications Gentamicin Topical (Gentamicin Topical) 0.1% Oint, TOPICAL HS 06/15/17 Zinc Sulfate (Zinc Sulfate) 220 Mg Tab, 220 MG PO DAILY for Wound Healing for 14 Days, #14 TAB 0 Refills 06/15/17 Ascorbic Acid (Vitamin C) 250 Mg Tab, 500 MG PO BID for Wound Healing , TAB 0 Refills 06/15/17 Sennosides-Docusate Sodium (Docusate Sodium-Senna) 8.6-50 Mg Tab, 1 TAB PO BID for Prevent Constipation, #30 TAB 0 Refills 06/15/17 Risperidone (Risperdal) 3 Mg Tab, 3 MG PO DAILY, #30 TAB 0 Refills 06/15/17 Doxycycline Hyclate (Doxycycline Hyclate) 100 Mg Cap, 100 MG PO BID for Infection, CAP 0 Refills 06/15/17 Sevelamer Carbonate (Renvela) 800 Mg Tab, 800 MG PO TID for Control phosphorous levels, #90 TAB 0 Refills 04/05/17 B-Complex W/ C & Folic Acid (Nephrocaps) 1 Cap, 1 CAP PO DAILY for Nutritional Supplement, #30 CAP 0 Refills If on dialysis, take after treatment. 04/05/17 Gabapentin (Gabapentin) 100 Mg Cap, 200 MG PO BID, #60 CAP 0 Refills 04/05/17 Cinacalcet (Sensipar) 60 Mg Tab, 60 MG PO DAILY, #30 TAB 0 Refills 04/05/17 Allopurinol (Allopurinol) 300 Mg Tab, 300 MG PO DAILY for Gout, #30 TAB 0 Refills 03/27/17 Albuterol Neb (Albuterol Neb) 2.5 Mg/0.5 Ml Neb, 2.5 MG NEB Q6HR NEB, BOX Note: The Albuterol Sulfate Inhalation Solution is concentrated and must be diluted. Read complete instructions carefully before using. 03/27/17 Ferric Citrate (Auryxia) 210 Mg Tab, 210 MG PO 2-3 TIMES A DAY Take with meals 2-3 times a day 10/05/16 Metoclopramide (Reglan) 5 Mg Tab, 5 MG PO TIDAC, TAB 0 Refills 06/10/16 Discontinued Reported Medications Omeprazole Magnesium (Prilosec) 20 Mg Tab 04/05/17 Discontinued Scripts Lurasidone (Latuda) 20 Mg Tab, 20 MG PO DAILY for health, #30 TAB 0 Refills Prov:Darnell Castillo MD 03/30/17 Current Medications Medications (Trade) Dose Ordered Sig/Lora Route Start Time Stop Time Status Last Admin (NS Flush) 2 ml UNSCH PRN IV FLUSH 06/15/17 21:45 (NS Flush) 2 ml BID IV FLUSH 06/16/17 09:00 06/16/17 08:36 (Narcan Inj) 0.4 mg UNSCH PRN IV PUSH 06/15/17 21:45 (Zyloprim) 100 mg DAILY PO 06/16/17 09:00 06/16/17 08:41 (Norvasc) 10 mg DAILY PO 06/16/17 09:00 Future Hold (Lipitor) 20 mg HS PO 06/16/17 21:00 (Nephrocaps) 1 cap DAILY PO 06/16/17 09:00 06/16/17 08:36 (Coreg) 3.125 mg BID PO 06/16/17 09:00 (Lexapro) 20 mg DAILY PO 06/16/17 09:00 06/16/17 08:35 (Neurontin) 200 mg BID PO 06/16/17 09:00 06/16/17 08:35 (risperDAL) 3 mg DAILY PO 06/16/17 09:00 06/16/17 08:35 (Katalina-Colace) 1 tab BID PO 06/16/17 09:00 (Renvela) 800 mg TIDAC PO 06/16/17 08:00 06/16/17 08:41 (Desyrel) 100 mg HS PO 06/16/17 21:00 (Vitamin C) 500 mg BID PO 06/16/17 09:00 06/16/17 08:35 (Sensipar) 60 mg DAILY PO 06/17/17 09:00 (Reglan) 5 mg TIDAC PO 06/16/17 08:00 (Heparin Inj) 5,000 units Q8HR SQ 06/16/17 06:00 06/16/17 05:35 (Albuterol Neb) 2.5 mg Q6HR NEB NEB 06/16/17 04:00 06/16/17 03:42 (Pill Splitter) 1 ea UNSCH PRN OTHER 06/16/17 00:45 Sodium Chloride 1,000 ml @ 0 mls/hr TITRATE PRN OTHER 06/16/17 09:15 (Heparin Inj) 8,000 units UNSCH PRN IV FLUSH 06/16/17 09:15 Sodium Chloride 1,000 ml @ 200 mls/hr Q5H PRN OTHER 06/16/17 09:15 Sodium Chloride 200 ml @ 0 mls/hr UNSCH PRN IV 06/16/17 09:15 (Mannitol Inj) 12.5 gm UNSCH PRN IV PUSH 06/16/17 09:15 Albumin Human 100 ml @ 60 mls/hr UNSCH PRN IV 06/16/17 09:15 (NS Flush) 5 ml UNSCH PRN IV FLUSH 06/16/17 09:15 (Heparin Inj) Dwell Heparin to f... UNSCH PRN OTHER 06/16/17 09:15 (Gentamicin (Dialysis) Inj) 10 mg UNSCH PRN OTHER 06/16/17 09:15 (Gelfoam 12 Mm/7 Mm Top) 1 foam UNSCH PRN TOPICAL 06/16/17 09:15 (Zofran Inj) 4 mg UNSCH PRN IV PUSH 06/16/17 09:15 (Tylenol) 650 mg UNSCH PRN PO 06/16/17 09:30 (Benadryl) 25 mg UNSCH PRN PO 06/16/17 09:15 (Nitrostat Sl) 0.4 mg UNSCH PRN SL 06/16/17 09:15 (Catapres) 0.1 mg UNSCH PRN PO 06/16/17 09:15 Family Psych History The patient denies family psychiatric history Social History Patient was born and raised in [place], she is but , lives in a correction in [facility], unemployed, on SSI, her highest level of education is high school Patient's Strengths (min. 2) Compliant with medications Physical Exam No EPS, no tremors, no stiffness, patient has noted hypoactivity in psychomotor retardation. Vital Signs Vital Signs Date Time Temp Pulse Resp B/P (MAP) Pulse Ox O2 Delivery O2 Flow Rate FiO2 06/16/17 04:00 98.3 83 20 130/60 (83) 98 06/16/17 03:42 Nasal Cannula 1.00 I/O 06/16/17 06/16/17 06/16/17 07:59 15:59 23:59 Output Total 100 ml Balance -100 ml Lab Results Test 06/15/17 19:28 06/16/17 00:37 06/16/17 05:33 White Blood Count 5.1 TH/MM3 3.6 TH/MM3 Red Blood Count 2.52 MIL/MM3 2.66 MIL/MM3 Hemoglobin 8.2 GM/DL 8.7 GM/DL Hematocrit 25.5 % 27.0 % Mean Corpuscular Volume 101.1 FL 101.6 FL Mean Corpuscular Hemoglobin 32.7 PG 32.5 PG Mean Corpuscular Hemoglobin Concent 32.3 % 32.0 % Red Cell Distribution Width 19.7 % 19.9 % Platelet Count 130 TH/MM3 120 TH/MM3 Mean Platelet Volume 8.9 FL 9.3 FL Neutrophils (%) (Auto) 69.4 % 58.3 % Lymphocytes (%) (Auto) 17.7 % 26.5 % Monocytes (%) (Auto) 9.7 % 11.6 % Eosinophils (%) (Auto) 2.4 % 2.8 % Basophils (%) (Auto) 0.8 % 0.8 % Neutrophils # (Auto) 3.6 TH/MM3 2.1 TH/MM3 Lymphocytes # (Auto) 0.9 TH/MM3 1.0 TH/MM3 Monocytes # (Auto) 0.5 TH/MM3 0.4 TH/MM3 Eosinophils # (Auto) 0.1 TH/MM3 0.1 TH/MM3 Basophils # (Auto) 0.0 TH/MM3 0.0 TH/MM3 CBC Comment DIFF FINAL DIFF FINAL Differential Comment Prothrombin Time 11.3 SEC Prothromb Time International Ratio 1.1 RATIO Activated Partial Thromboplast Time 28.4 SEC Blood Urea Nitrogen 70 MG/DL 70 MG/DL 76 MG/DL Creatinine 5.50 MG/DL 5.83 MG/DL 6.10 MG/DL Random Glucose 87 MG/DL 71 MG/DL 69 MG/DL Total Protein 7.5 GM/DL Albumin 3.7 GM/DL Calcium Level 8.6 MG/DL 8.4 MG/DL 8.9 MG/DL Alkaline Phosphatase 268 U/L Aspartate Amino Transf (AST/SGOT) 31 U/L Alanine Aminotransferase (ALT/SGPT) 44 U/L Total Bilirubin 0.4 MG/DL Sodium Level 129 MEQ/L 133 MEQ/L 132 MEQ/L Potassium Level 6.4 MEQ/L 5.7 MEQ/L 4.8 MEQ/L Chloride Level 93 MEQ/L 95 MEQ/L 92 MEQ/L Carbon Dioxide Level 24.5 MEQ/L 29.6 MEQ/L 28.3 MEQ/L Anion Gap 12 MEQ/L 8 MEQ/L 12 MEQ/L Estimat Glomerular Filtration Rate 8 ML/MIN 8 ML/MIN 7 ML/MIN Ammonia 32 MCMOL/L Mental Status Examination Appearance: Appropriate Consciousness: Alert Orientation: x4 Motor Activity: Normal gait Speech: Unremarkable Language: Adequate Fund of Knowledge: Adequate Attention and Concentration: Adequate Memory: Unremarkable Mood: Sad, Oppositional Affect: Sad, Flat Thought Process & Associations: Intact Thought Content: Appropriate Hallucination Type: None Delusion Type: None Suicidal Ideation: Yes Suicidal Plan: Yes Suicidal Intention: No Homicidal Ideation: No Homicidal Plan: No Homicidal Intention: No Insight: Adequate Judgment: Adequate Assessment & Plan Problem List: (1) Bipolar 1 disorder ICD Codes: F31.9 - Bipolar disorder, unspecified Status: Chronic Assessment & Plan: On psychiatric evaluation today patient reports persistent severe depressive symptoms for the last 2 weeks complicated with suicidal ideation without a specific plan. Patient says that she has intrusive thoughts of harming herself. She reports hopelessness, helplessness, anhedonia, very low energy, difficulty sleeping at night, difficulties concentrating, poor appetite, no enjoying anything activity. Patient has been taking her medications as prescribed. She has recently from her she has not been feeling good medically. At this moment the patient represents an acute danger to herself and she meets criteria for involuntary psychiatric admission for stabilization and safety. We will restart citalopram 20 mg, trazodone 100 mg, Risperdal 2 mg at bedtime. [facility] once medically appropriate. Continue one-to-one sitter in the medical floor. Brief supportive psychotherapy, psychoeducation motivation provided. Assessment & Plan Estimated LOS: Darnell Nieto MD Jun 16, 2017 10:55
[2017-06-16] MEDS ORDERED: EPOETIN ALFA 10,000 UNITS/ML VIAL IV PUSH PRN (11:30)
--- NOTE | 2017-06-16 16:30 | MB ---
cc: KYM SALAMANCA MD DATE OF CONSULTATION 06/16/2017 REASON FOR CONSULTATION End-stage renal disease on hemodialysis for management. HISTORY OF PRESENT ILLNESS This is a 51-year-old female with past medical history of hypertension, chronic anemia, end-stage renal disease on hemodialysis three times per week, history of COPD, depression, hyperlipidemia was brought to the hospital after she was Delatorre acted. I was called to see the patient because of elevated potassium and hemodialysis. The patient has been following with Dr. Vinson who asked me to see the patient. The patient has been seen by me while she was here 6 weeks ago. Now this time she was in the prison and the patient has suicidal ideation to kill herself and she was Delatorre acted and sent to the hospital. The patient seen by me during dialysis. She denies any headache, dizziness or blurring of vision. She has mild shortness of breath. She has chronic cough. There is no sputum. No chest pain. There is no history of nausea or vomiting or diarrhea. The patient was found to have potassium of 6.4 on admission which has improved to 4.8 this morning after medical treatment. PAST MEDICAL HISTORY 1. Hypertension. 2. Chronic anemia. 3. Chronic obstructive pulmonary disease. 4. Depression. 5. Gastroesophageal reflux disease. 6. Hyperlipidemia. 7. End-stage renal disease on hemodialysis. PAST SURGICAL HISTORY 1. Multiple surgeries for AV fistula. Currently she has AV fistula in the left upper chest. 2. History of section. 3. Right knee surgery. REVIEW OF SYSTEMS The patient denies any headache, dizziness. She has mild shortness of breath and cough which is chronic and it is a dry cough. There is no chest pain. No palpitation. No nausea, vomiting. No abdominal pain. No history of diarrhea. SOCIAL HISTORY The patient lives in a nursing facility. She is chronic smoker, smokes about half-pack per day. There is no history of heavy alcoholism. FAMILY HISTORY Noncontributory. ALLERGIES NO KNOWN DRUG ALLERGIES. MEDICATIONS Currently she is on: 1. Carvedilol 3.125 mg b.i.d. 2. Neurontin 200 mg b.i.d. 3. Katalina-Colace 1 tablet b.i.d. 4. Ascorbic acid 500 mg b.i.d. 5. Allopurinol 100 mg once a day. 6. Nephrocaps 1 capsule daily. 7. Lexapro 20 mg once a day. 8. Risperdal 3 mg daily. 9. Sensipar 60 mg once a day. 10. Lipitor 20 mg q.h.s. 11. Desyrel 100 milligrams q.h.s. 12. Albuterol nebulizer. 13. Reglan 5 mg t.i.d. 14. Renvela 100 mg t.i.d. 15. Heparin 5000 subcu q.8h. PHYSICAL EXAMINATION GENERAL: On examination the patient is awake, alert and not in acute distress. VITAL SIGNS: The last blood pressure is 127/68 temperature 98.4, oxygen saturation 99%. HEENT: Pupils are mid constricted. Nonicteric sclera, conjunctiva pale. NECK: Supple. JVD is not elevated. LUNGS: The patient has bilateral good air entry with occasional wheezing. HEART: S1-S2 regular rhythm. ABDOMEN: Distended, soft, lax. There is no definite tenderness. Bowel sounds positive. EXTREMITIES: She has 1+ leg edema. LABORATORY DATA Investigations, WBC count is 3.6, hemoglobin 8.7, platelet of 120 neutrophils 58.3%. Sodium 132, potassium 4.8, chloride 92, bicarb 28.3, BUN 76, creatinine 6.1, glucose 69. INR 1.1. Potassium on admission was 6.4. IMAGING STUDIES The patient has no recent imaging study. ASSESSMENT/PLAN 1. Juan Ramon Acted with suicidal ideation. 2. Hyperkalemia. 3. End-stage renal disease on hemodialysis. 4. Anemia. 5. Hypertension. 6. History of COPD. 7. And diastolic dysfunction. The patient was seen during dialysis. Blood pressure was stable and was getting 2-3 liters of fluid. Her hemoglobin is low so she will be getting the Epogen with the dialysis. Psychiatry has been following the patient and the patient is Juan Ramon acted. I will wait for their further recommendation. Continue the dialysis three times per week Wednesday, Wednesday and Wednesday. Thank you for the consultation. I will follow the patient while she is in the hospital. MD SARINA Tatum/CINTIA /3:40 PM /4:15 PM
--- NOTE | 2017-06-16 17:17 | HHI.PR ---
Subjective Remarks Follow up for suicidal ideations, hyperkalemia, ESRD. Patient is currently doing well. Tolerated dialysis well. No fever, chill. Patient is medically clear for discharge to psychiatry facility. Objective Vitals Vital Signs Date Time Temp Pulse Resp B/P (MAP) Pulse Ox O2 Delivery O2 Flow Rate FiO2 06/16/17 15:55 98 Nasal Cannula 2.00 06/16/17 13:45 98.4 85 17 127/68 (87) 99 06/16/17 11:40 98.1 74 16 136/60 (85) 99 06/16/17 10:51 74 06/16/17 04:00 98.3 83 20 130/60 (83) 98 06/16/17 04:00 71 06/16/17 04:00 98.5 75 22 123/58 (79) 100 06/16/17 03:42 100 Nasal Cannula 1.00 06/16/17 01:35 97.6 68 22 97/55 (69) 100 06/16/17 00:46 06/16/17 00:00 70 13 119/59 (79) 97 Nasal Cannula 2.00 06/15/17 23:00 70 13 111/56 (74) 99 Nasal Cannula 2.00 06/15/17 22:00 76 15 117/58 (77) 99 Nasal Cannula 2.00 06/15/17 21:38 70 12 121/58 (79) 97 Nasal Cannula 2.00 06/15/17 21:30 90 Room Air 06/15/17 20:58 95 06/15/17 18:08 98.5 75 19 141/65 (90) 97 Room Air 06/15/17 18:07 76 19 06/15/17 18:01 98.5 78 19 141/65 (90) 96 I/O 06/15/17 06/15/17 06/15/17 06/16/17 06/16/17 06/16/17 07:00 15:00 23:00 07:00 15:00 23:00 Output Total 100 ml 2500 ml Balance -100 ml -2500 ml Output Urine Total 100 ml Hemodialysis 2500 ml # Voids 1 Result Diagram: 06/16/1753206/16/17532 Objective Remarks GENERAL: Alert, NAD. Somewhat flat affect. SKIN: Warm and dry. HEAD: Normocephalic. EYES: No scleral icterus. No injection or drainage. NECK: Supple, trachea midline. No JVD or lymphadenopathy. CARDIOVASCULAR: Regular rate and rhythm without murmurs, gallops, or rubs. RESPIRATORY: Breath sounds equal bilaterally. No accessory muscle use. GASTROINTESTINAL: Abdomen soft, non-tender, nondistended. MUSCULOSKELETAL: No cyanosis, or edema. BACK: Nontender without obvious deformity. No CVA tenderness. Procedures None. A/P Problem List: (1) Suicidal ideation ICD Code: R45.851 - Suicidal ideations (2) Hyperkalemia ICD Code: E87.5 - Hyperkalemia Status: Acute (3) ESRD (end stage renal disease) on dialysis ICD Code: N18.6 - End stage renal disease; Z99.2 - Dependence on renal dialysis Status: Acute Assessment and Plan Ms. Cheema is a 51 year old female with a history of HTN, ESRD who was verdin acted due to suicidal ideations. Work up indicated hyperkalemia with K+ 6.4 on admission. - Suicidal ideations - Hx of depression - Psychiatry input very much appreciated. Patient is currently medically cleared and can be discharged to psychiatry. - If needed, hospitalist service can be consulted for medical management. - We can also consult Nephrology to continue patient's dialysis while in- patient. - ESRD - Hyperkalemia - K+ corrected to 4.8. No acute concerns. No EKG changes. - Patient has been seen by Dr. Colin (Nephrology) who can be consulted once patient goes to Psychiatry unit. - Hyperlipidemia - continue Lipitor 20mg QHS. - Hypertension - Will d/c Amlodipine 10mg Qday. Patient has been normotensive. If needed, we can start low dose anti-hypertensives. DNR. Ambulation. Discharge patient to psychiatry facility. Condition on discharge: Improved Renal failure Diet as tolerated Ad Tabatha activity Rx written: Continued Medications: Albuterol Neb 2.5 Mg/0.5 Ml Neb Note: The Albuterol Sulfate Inhalation Solution is concentrated and must be diluted. Read complete instructions carefully before using. Allopurinol 300 Mg Tab Ascorbic Acid (Vitamin C) 250 Mg Tab Atorvastatin 20 Mg Tab B-Complex W/ C & Folic Acid (Nephrocaps) 1 Cap If on dialysis, take after treatment. Carvedilol (Coreg) 3.125 Mg Tab Cinacalcet (Sensipar) 60 Mg Tab Escitalopram (Lexapro) 10 Mg Tab Ferric Citrate (Auryxia) 210 Mg Tab Take with meals 2-3 times a day Gabapentin 100 Mg Cap Metoclopramide (Reglan) 5 Mg Tab Risperidone (Risperdal) 3 Mg Tab Sennosides-Docusate Sodium (Docusate Sodium-Senna) 8.6-50 Mg Tab Sevelamer Carbonate (Renvela) 800 Mg Tab Trazodone 50 Mg Tab Discontinued Medications: Amlodipine (Norvasc) 10 Mg Tab Calcium Polycarbophil (Fibercon) 625 Mg Tab Doxycycline Hyclate 100 Mg Cap Gentamicin Topical 0.1% Oint Polyethylene Glycol 3350 Powder 17 Gm Pow Zinc Sulfate 220 Mg Tab Follow-up with primary care physician PRN after psychiatry admission. Pierce Rubio DO Jun 16, 2017 17:17
[2017-06-16] MEDS ORDERED: traZODone HCL 50 MG TAB PO SCH (21:00)
[2017-06-16] MEDS ORDERED: ATORVASTATIN 20 MG TAB PO SCH (21:00)
[2017-06-17] MEDS ORDERED: CINACALCET HYDROCHLORIDE 30 MG TAB PO SCH (09:00)
== END 2017-06-16 20:49 | DRG 640 ==
LOC: NEPD 17:51 → NEDA 21:35 → OBSVTOIN 22:09 → N05A 06-16 01:10
PROVIDERS: ADMIT Hospitalist; ATTEND Hospitalist
PROC: 5A1D70Z Performance of Urinary Filtration, Intermittent, Less than 6 Hours Per Day (ICD-10-PCS; principal; 2017-06-15)
DX: E87.5 Hyperkalemia (principal); N18.6 End stage renal disease; I13.2 Hypertensive heart and chronic kidney disease with heart failure and with stage 5 chronic kidney disease, or end stage renal disease; R45.851 Suicidal ideations; F31.30 Bipolar disorder, current episode depressed, mild or moderate severity, unspecified; I50.30 Unspecified diastolic (congestive) heart failure; Z99.2 Dependence on renal dialysis; J44.9 Chronic obstructive pulmonary disease, unspecified; K21.9 Gastro-esophageal reflux disease without esophagitis; D63.1 Anemia in chronic kidney disease; E78.5 Hyperlipidemia, unspecified; M10.9 Gout, unspecified; F41.9 Anxiety disorder, unspecified; F17.210 Nicotine dependence, cigarettes, uncomplicated; Z66 Do not resuscitate; Z91.5 Personal history of self-harm; Z96.651 Presence of right artificial knee joint
CPT/HCPCS: 80048; 80053; 82140; 85025; 85610; 85730; 90935; 93005; 94640; 94664; 96374; 99285; J1644; J1815; J7611; J7613

== ENCOUNTER 2017-06-16 21:00 | Inpatient (IN) | payer MEDICARE, OTHER ==
[~2017-06-16] VITALS: Ht 142.2 cm; Wt 58.5 kg
[2017-06-16 21:00] VITALS: BP 151/67; PULSE 88; RESP 18; TEMP 98.2; O2SAT 95
[~2017-06-16 21:00] MED LIST changes: +DOCU8.6T PO; +DOXY100C PO; +GENT0.1O2 TOPICAL; -LURA20TA PO; -PERI8.6T PO; -PRIL20TA2; +RISP3 PO; +VITA250T3 PO; +ZINC220T PO
[2017-06-16] MEDS ORDERED: MAGNESIUM HYDROXIDE SUSP 30 ML CUP PO PRN (22:00)
[2017-06-16] MEDS ORDERED: hydrOXYzine HCL 50 MG TAB PO PRN (22:00)
[2017-06-16] MEDS ORDERED: ALUMINUM/MAGNESIUM/SIMETH 30 ML CUP PO PRN (22:00)
[2017-06-16] MEDS ORDERED: ACETAMINOPHEN 325 MG TAB PO PRN (22:00)
[2017-06-16] MEDS: RESP: ALBUTEROL 2.5 MG/3 ML NEB (SCH) INH (22:00)
[2017-06-16] MEDS: traZODone HCL 100 MG TAB PO SCH (22:42)
[2017-06-16] MEDS: ASCORBIC ACID 500 MG TAB PO SCH (22:45)
[2017-06-16] MEDS: CARVEDILOL 3.125 MG TAB PO SCH (22:45)
[2017-06-16] MEDS: ATORVASTATIN 20 MG TAB PO SCH (22:45)
[2017-06-17] MEDS: RESP: ALBUTEROL 2.5 MG/3 ML NEB (SCH) INH ×4 (03:04→22:00)
[2017-06-17 05:48] VITALS: BP 119/60; PULSE 85; RESP 17; TEMP 98.6; O2SAT 89
[2017-06-17 08:03] VITALS: BP 157/69; PULSE 91; RESP 18; O2SAT 90
--- NOTE | 2017-06-17 08:39 | HHI.HP ---
Provisional Diagnosis Admission Date Jun 16, 2017 at 21:00 [place] I. 1. Bipolar disorder, most recent episode depressed Rule-out schizoaffective disorder 2. Reported history of substance use disorder [place] II. Deferred Certification of Person's Competence To Provide Express and Informed Consent I have personally examined Deborah Cheema , a person being served at [facility] on, Jun 17, 2017 08:39. Express and informed consent means consent voluntarily given in writing, by a competent person, after sufficient explanation and disclosure of the subject matter involved to enable the person to make a knowing and willful decision without any element of force, fraud, deceit, duress, or other form of constraint or coercion. This person is 18 years of age or older, is not now known to be incompetent to consent to treatment with a guardian advocate, and does not have a health care surrogate or proxy currently making medical treatment decisions. I have found this person to be one of the following: [x] Competent to provide express and informed consent, as defined above, for voluntary admission to this facility and is competent to provide express and informed consent for treatment. He/she has the consistent capacity to make well reasoned, willful, and knowing decisions concerning his or her medical or mental health treatment. The person fully and consistently understands the purpose of the admission for examination/placement and is fully capable of personally exercising all rights assured under [place] Incompetent to provide express and informed consent to voluntary admission, and this is incompetent to provide express and informed consent to treatment. The person must be transferred to involuntary status and a petition for a guardian advocate filed with the Circuit Court. [] Refusing to provide express and informed consent to voluntary admission but is competent to provide express and informed consent for treatment. The person must be discharged or transferred to involuntary status. Form shall be completed within 24 hours of a person's arrival at the receiving facility and filed in the clinical record of each person: 1. Admitted on a voluntary basis 2. Permitted to provide express and informed consent to his/her own treatment 3. Allowed to transfer from involuntary to voluntary status 4. Prior to permitting a person to consent to his or her own treatment after having been previously found incompetent to consent to treatment. History of Present Illness Capacity: Has Capacity Psych Chief Complaint: "I wanna go home." HPI From Dr. Castillo's consult note: The patient is a 51 year-old woman, domiciled in a retirement, recently from her , unemployed, supported by [facility], with psychiatric history bipolar disorder, multiple psychiatric hospitalizations, last hospitalization was here at [facility] in March 2017, she was discharged Risperdal 2 mg at bedtime escitalopram 20 mg, [id number] mg at bedtime, previous suicidal attempts, medical history of chronic kidney disease on dialysis presents to the emergency room under [facility] for evaluation of suicidal ideation. On initial evaluation her potassium was 6.4. She was hospitalized for electrolyte correction. On psychiatric evaluation patient is distant, superficially cooperative. Patient states she has had increasing suicidal thoughts over the past several weeks now since she from her . "But the truth is that I am just depressed for no reason". She has no specific reason for being suicidal or any plan" but I feel I want to ". She denies any medical complaints at this time. Denies drug or alcohol use. She last had dialysis this morning. Patient makes urine several times per day. Patient has history of bipolar disorder but she has been taking her medications and she was responding find until about 2 weeks ago. The patient is fully oriented 3, no fluctuation of consciousness, no attention deficit, running in paranoia, delusions, agitation or aggressive behavior. On my examination today: Patient seen and examined with nurse. Chart reviewed. Patient was brought to ED from her facility under [facility] for suicidal ideation. She was medically admitted for hyperkalemia and seen in consultation by Dr. Castillo, and I have reviewed his notes. Of note, patient was on supplemental oxygen on medical floor but was transferred overnight by on-call MD to high-acuity unit where supplemental oxygen is not utilized due to safety concerns. Patient is hypoxemic this morning, and I have ordered her placed back on supplemental oxygen and notified the charge nurse to transfer the patient to the Medical Psychiatric unit where supplemental oxygen can be used LILLIE. Case discussed with nursing staff. On my exam today, patient says "I wanna go home, go back to where I was." She does admit to suicidal ideation prior to admission but says "they were just thoughts." She says that she was contemplating "taking a string and tying it to a doorknob and choking myself." She denies any suicidal ideation, intent or plan now and contracts for safety. She denies any urge to hurt herself on the inpatient unit. Mood at time of initial presentation was reportedly depressed but is now "good." She endorses some chronic, non- deprecatory, non-command auditory hallucinations that are "pretty cool, funny." She has experienced command auditory hallucinations in the past but denies these now. No other hallucinatory material. No delusions. No hypomanic or manic symptoms. Reports she has been adherent with psychotropics and is tolerating these well but finds them a little sedating. She does take Risperdal during the day but is open to moving it to HS to lessen daytime sedation. No physical complaints besides some mild dyspnea associated with hypoxemia. She reports a history of suicide attempt by OD in the past. Review of Systems Except as stated in HPI: all other systems reviewed are Neg Past Psych History Psychological trauma history No reported trauma history to me Violence risk - others (6 mos) Low imminent risk. Denies homicidal ideation. Violence risk - self (6 mos) Indeterminate but suspect lower imminent risk. Patient apparently had suicidal ideation on initial presentation but denies this now. Mood seems to be improved. We will plan to observe for acute risk factors for self-harm. Substance Abuse History Drugs/Alcohol past 12 months Patient endorses a history of use of cannabis, crack, powder cocaine and acid but says that she has been clean since 2005 Past Family Social History Coded Allergies: No Known Allergies (Verified Allergy, Unknown, 06/16/17) Past Medical History See electronic medical record. Includes a history of ESRD on HD and COPD. Active Scripts Carvedilol (Coreg) 3.125 Mg Tab, 3.125 MG PO BID for Blood Pressure Management for 30 Days, #60 TAB Prov:Rosie Nunez 04/09/17 Atorvastatin (Atorvastatin) 20 Mg Tab, 20 MG PO HS for Cholesterol Management, # 30 TAB 0 Refills Prov:Rosie Nunez 04/09/17 Walker with Front Wheels (Walker with Front Wheels) 1 Mis Mis, EA .ROUTE DIRECTED, #1 0 Refills Prov:Rosie Nunez 04/08/17 Trazodone (Trazodone) 50 Mg Tab, 100 MG PO HS for health for 30 Days, TAB Prov:Jonathan,Darnell B. MD 03/30/17 Escitalopram (Lexapro) 10 Mg Tab, 20 MG PO DAILY for health, #30 TAB 0 Refills Prov:Darnell Castillo MD 03/30/17 Oxygen tank (Oxygen tank) 1 Ea Tank, 2 LITER JOSIAH.CANULA CONTINUOUS for HYPOXEMIA PREVENTION, #2 CYLINDER Oxygen Concentrator Portable Gaseous 2 L/min via Nasal Cannula Continuous For 99 months Prov:Jayson Salazar 12/06/16 Reported Medications Ascorbic Acid (Vitamin C) 250 Mg Tab, 500 MG PO BID for Wound Healing , TAB 0 Refills 06/15/17 Sennosides-Docusate Sodium (Docusate Sodium-Senna) 8.6-50 Mg Tab, 1 TAB PO BID for Prevent Constipation, #30 TAB 0 Refills 06/15/17 Risperidone (Risperdal) 3 Mg Tab, 3 MG PO DAILY, #30 TAB 0 Refills 06/15/17 Sevelamer Carbonate (Renvela) 800 Mg Tab, 800 MG PO TID for Control phosphorous levels, #90 TAB 0 Refills 04/05/17 B-Complex W/ C & Folic Acid (Nephrocaps) 1 Cap, 1 CAP PO DAILY for Nutritional Supplement, #30 CAP 0 Refills If on dialysis, take after treatment. 04/05/17 Gabapentin (Gabapentin) 100 Mg Cap, 200 MG PO BID, #60 CAP 0 Refills 04/05/17 Cinacalcet (Sensipar) 60 Mg Tab, 60 MG PO DAILY, #30 TAB 0 Refills 04/05/17 Allopurinol (Allopurinol) 300 Mg Tab, 300 MG PO DAILY for Gout, #30 TAB 0 Refills 03/27/17 Albuterol Neb (Albuterol Neb) 2.5 Mg/0.5 Ml Neb, 2.5 MG NEB Q6HR NEB, BOX Note: The Albuterol Sulfate Inhalation Solution is concentrated and must be diluted. Read complete instructions carefully before using. 03/27/17 Ferric Citrate (Auryxia) 210 Mg Tab, 210 MG PO 2-3 TIMES A DAY Take with meals 2-3 times a day 10/05/16 Metoclopramide (Reglan) 5 Mg Tab, 5 MG PO TIDAC, TAB 0 Refills 06/10/16 Discontinued Reported Medications Gentamicin Topical (Gentamicin Topical) 0.1% Oint, TOPICAL HS 06/15/17 Zinc Sulfate (Zinc Sulfate) 220 Mg Tab, 220 MG PO DAILY for Wound Healing for 14 Days, #14 TAB 0 Refills 06/15/17 Doxycycline Hyclate (Doxycycline Hyclate) 100 Mg Cap, 100 MG PO BID for Infection, CAP 0 Refills 06/15/17 Omeprazole Magnesium (Prilosec) 20 Mg Tab 04/05/17 Discontinued Scripts Amlodipine (Norvasc) 10 Mg Tab, 10 MG PO DAILY for Blood Pressure Management for 30 Days, #30 TAB Prov:Rosie Nunez 04/09/17 Calcium Polycarbophil (Fibercon) 625 Mg Tab, 1250 MG PO Q12HR Y for CONSTIPATION , #60 TAB 0 Refills Prov:Shilo Greer MD 12/19/16 Polyethylene Glycol 3350 Powder (Polyethylene Glycol 3350 Powder) 17 Gm Pow, 17 GM PO DAILY for Constipation for 14 Days, BOTTLE Prov:Jayson Salazar 12/07/16 Lurasidone (Latuda) 20 Mg Tab, 20 MG PO DAILY for health, #30 TAB 0 Refills Prov:Darnell Castillo MD 03/30/17 Current Medications Medications (Trade) Dose Ordered Sig/Lora Route Start Time Stop Time Status Last Admin (Atarax) 50 mg Q6H PRN PO 06/16/17 22:00 (Tylenol) 650 mg Q4H PRN PO 06/16/17 22:00 (Milk Of Magnesia Liq) 30 ml DAILY PRN PO 06/16/17 22:00 (Mag-Al Plus Susp Liq) 30 ml Q6H PRN PO 06/16/17 22:00 (Albuterol Neb) 2.5 mg Q6HR NEB INH 06/16/17 22:00 (Zyloprim) 300 mg DAILY PO 06/17/17 09:00 (Vitamin C) 500 mg BID PO 06/16/17 22:45 (Lipitor) 20 mg HS PO 06/16/17 22:45 (Nephrocaps) 1 cap DAILY PO 06/17/17 09:00 (Coreg) 3.125 mg BID PO 06/16/17 22:45 (Sensipar) 60 mg DAILY PO 06/17/17 09:00 (Lexapro) 20 mg DAILY PO 06/17/17 09:00 Patient Own Medication PT OWN MED: RITA... TIDPC PO 06/17/17 09:30 Future Hold (Neurontin) 200 mg BID PO 06/17/17 09:00 (Reglan) 5 mg TIDAC PO 06/17/17 08:00 (risperDAL) 3 mg DAILY PO 06/17/17 09:00 (Katalina-Colace) 1 tab BID PO 06/17/17 09:00 (Renvela) 800 mg TID PO 06/17/17 09:00 (Desyrel) 100 mg HS PO 06/16/17 22:45 06/16/17 22:42 Family Psych History Patient denies a family history of suicide. No other reported family psychiatric history. Social History Patient resides at [facility]. Patient's Strengths (min. 2) In a monitored setting. Verbally fluent. Physical Exam Physical examination completed by hospitalist prior to transfer to the psychiatric unit. On my examination today, the patient appears to be in no acute physical distress besides some mild dyspnea. No motor abnormalities noted. Labs and vitals reviewed: Vital Signs Vital Signs Date Time Temp Pulse Resp B/P (MAP) Pulse Ox O2 Delivery O2 Flow Rate FiO2 06/17/17 08:03 91 18 157/69 (98) 90 06/17/17 05:48 98.6 Lab Results Item Value Date Time White Blood Count 3.6 TH/MM3 L 06/16/17 05 Hemoglobin 8.7 GM/DL L 06/16/17 05 Platelet Count 120 TH/MM3 L 06/16/17 05 Sodium Level 132 MEQ/L L 06/16/17 05 Potassium Level 4.8 MEQ/L # 06/16/17 05 Chloride Level 92 MEQ/L L 06/16/17 05 Carbon Dioxide Level 28.3 MEQ/L 06/16/17 05 Blood Urea Nitrogen 76 MG/DL H 06/16/17 05 Creatinine 6.10 MG/DL H 06/16/17 05 Estimat Glomerular Filtration Rate 7 ML/MIN L 06/16/17 05 Random Glucose 69 MG/DL L 06/16/17 05 Aspartate Amino Transf (AST/SGOT) 31 U/L 06/15/171927 Alanine Aminotransferase (ALT/SGPT) 44 U/L 06/15/171927 Alkaline Phosphatase 268 U/L H 06/15/171927 Thyroid Stimulating Hormone 3rd Gen 2.650 uIU/ML 04/08/17 0655 Mental Status Examination Appearance: Disheveled (mildly so) Consciousness: Alert Orientation: x4 (no evidence of delirium) Motor Activity: Other (no motor abnormalities noted) Speech: Unremarkable Language: Adequate Fund of Knowledge: Adequate Attention and Concentration: Adequate Memory: Unremarkable Mood: Good Affect: Blunt Thought Process & Associations: Logical, Linear Thought Content: Appropriate Hallucination Type: Auditory (as noted above. No current command auditory hallucinations.) Delusion Type: None Suicidal Ideation: No Suicidal Plan: No Suicidal Intention: No Homicidal Ideation: No Homicidal Plan: No Homicidal Intention: No Insight: Fair Judgment: Impulsive Assessment & Plan Problem List: (1) Bipolar 1 disorder, depressed ICD Codes: F31.9 - Bipolar disorder, unspecified Status: Chronic Assessment & Plan 51-year-old female with a history of bipolar illness who presents in transfer from the medical floor. On my examination today, patient reports resolution of presenting low mood and suicidal ideation. She denies any urge to self injure now. She does report that her medications are making her somewhat drowsy, and a medication adjustment might be considered to ameliorate this issue. I will plan to admit the patient to the inpatient psychiatric unit for observation. Admit inpatient. Voluntary status. Transfer to medical psychiatric unit. Consult to the hospitalist to follow the patient on the inpatient psychiatric unit. Change Risperdal dosing to at bedtime. Continue Lexapro and trazodone as ordered. Atarax as needed for anxiety. PT/falls prec. Vitals every shift. Counselor to see. Disposition planning. Estimated length of stay: 3-5 days. Discharge Planning Pending outcome of observation Request HC Surrog/Guard Advoc?: No Nigel Mejia MD Jun 17, 2017 08:39
[2017-06-17] MEDS: VITAMIN B CMPLX/VITC/FOLIC AC CAP PO SCH (09:00)
[2017-06-17] MEDS ORDERED: risperiDONE 3 MG TAB PO SCH ×2 (09:00→21:00)
[2017-06-17] MEDS: GABAPENTIN 100 MG CAP PO SCH ×2 (09:24→20:56)
[2017-06-17] MEDS: DOCUSATE SODIUM 50 MG/SENNA 8.6 MG TAB PO SCH ×2 (09:25→20:54)
[2017-06-17] MEDS: METOCLOPRAMIDE HCL 10 MG TAB PO SCH ×3 (09:25→16:15)
[2017-06-17] MEDS: ESCITALOPRAM OXALATE 20 MG TAB PO SCH (09:25)
[2017-06-17] MEDS ORDERED: FERRIC CITRATE (AURYXIA) 210MG TABLET PO SCH (09:30)
[2017-06-17] MEDS: SEVELAMER CARBONATE 800 MG TAB PO SCH ×3 (13:00→17:20)
[2017-06-17] MEDS: CARVEDILOL 3.125 MG TAB PO SCH ×2 (14:06→20:56)
[2017-06-17] MEDS: CINACALCET HYDROCHLORIDE 30 MG TAB PO SCH (14:06)
[2017-06-17] MEDS: ALLOPURINOL 300 MG TAB PO SCH (14:07)
[2017-06-17] MEDS: ASCORBIC ACID 500 MG TAB PO SCH ×2 (14:07→20:55)
[2017-06-17 15:49] VITALS: O2SAT 96
--- NOTE | 2017-06-17 17:53 | PD.CONS ---
HPI Service [facility] Hospitalists Consult Requested By Psychiatry Reason for Consult Medical management Primary Care Physician Haider Montes MD Diagnoses: (1) ESRD (end stage renal disease) (2) Suicidal ideation (3) HTN (hypertension) History of Present Illness Ms. Cheema is a 51-year-old female with a history of ESRD, depression who was originally admitted to the hospital due to suicidal ideations. However she was found to have hypokalemia with potassium 6.4 on admission. Patient was briefly admitted on the medical floor and received treatment for hyperkalemia. She also received dialysis. Subsequently once patient was medically cleared, patient was admitted to psychiatry unit on 06/16/2017. Hospitalist service was consulted for medical management. Patient is currently doing well. Tolerating diet well. She inquires about her liver enzymes. However she does not have any abdominal pain or any other symptoms indicating liver disease. No changes in bowel or bladder habits. Review of Systems Except as stated in HPI: all other systems reviewed are Neg Past Family Social History Allergies: Coded Allergies: No Known Allergies (Verified Allergy, Unknown, 06/16/17) Past Medical History ESRD on hemodialysis on Wednesday [place] COPD Hypertension Congestive heart failure Depression Hyperlipidemia Gout Anemia of chronic disease. Past Surgical History AV fistula placement Right knee surgery Ovary and cyst removal Active Ordered Medications Current Medications Medications (Trade) Dose Ordered Sig/Lora Route Start Time Stop Time Status Last Admin (Atarax) 50 mg Q6H PRN PO 06/16/17 22:00 (Tylenol) 650 mg Q4H PRN PO 06/16/17 22:00 (Milk Of Magnesia Liq) 30 ml DAILY PRN PO 06/16/17 22:00 (Mag-Al Plus Susp Liq) 30 ml Q6H PRN PO 06/16/17 22:00 (Albuterol Neb) 2.5 mg Q6HR NEB INH 06/16/17 22:00 (Zyloprim) 300 mg DAILY PO 06/17/17 09:00 06/17/17 14:07 (Vitamin C) 500 mg BID PO 06/16/17 22:45 06/17/17 14:07 (Lipitor) 20 mg HS PO 06/16/17 22:45 (Nephrocaps) 1 cap DAILY PO 06/17/17 09:00 06/17/17 09:00 (Coreg) 3.125 mg BID PO 06/16/17 22:45 06/17/17 14:06 (Sensipar) 60 mg DAILY PO 06/17/17 09:00 06/17/17 14:06 (Lexapro) 20 mg DAILY PO 06/17/17 09:00 06/17/17 09:25 Patient Own Medication PT OWN MED: RITA... TIDPC PO 06/17/17 09:30 Future Hold (Neurontin) 200 mg BID PO 06/17/17 09:00 06/17/17 09:24 (Reglan) 5 mg TIDAC PO 06/17/17 08:00 06/17/17 14:07 (Katalina-Colace) 1 tab BID PO 06/17/17 09:00 06/17/17 09:25 (Renvela) 800 mg TID PO 06/17/17 09:00 06/17/17 17:20 (Desyrel) 100 mg HS PO 06/16/17 22:45 06/16/17 22:42 (risperDAL) 3 mg HS PO 06/17/17 21:00 Family History Family history significant for breast cancer Social History Patient reported smoking about half a pack a day. No alcohol use. Physical Exam Vital Signs Vital Signs Date Time Temp Pulse Resp B/P (MAP) Pulse Ox O2 Delivery O2 Flow Rate FiO2 06/17/17 15:49 96 Nasal Cannula 2.00 06/17/17 08:03 91 18 157/69 (98) 90 06/17/17 05:48 98.6 85 17 119/60 (79) 89 06/16/17 21:00 98.2 88 18 151/67 (95) 95 Physical Exam GENERAL: This is a well-nourished, well-developed patient, in no apparent distress. Somewhat flat affect SKIN: No rashes, ecchymoses or lesions. Warm and dry. HEAD: Atraumatic. Normocephalic. No temporal or scalp tenderness. EYES: Pupils equal round and reactive. No injection or drainage. ENT: Nose without bleeding, purulent drainage or septal hematoma. Airway patent. NECK: Trachea midline. No lymphadenopathy. Supple, nontender, no meningeal signs. CARDIOVASCULAR: Regular rate and rhythm without murmurs, gallops, or rubs. No JVD. Left anterior chest has a fistula bruit. RESPIRATORY: Clear to auscultation. Breath sounds equal bilaterally. No wheezes , rales, or rhonchi. GASTROINTESTINAL: Abdomen soft, non-tender, nondistended. No guarding. MUSCULOSKELETAL: Extremities without clubbing, cyanosis, or edema. NEUROLOGICAL: Awake and alert. Cranial nerves II through XII intact. No focal neurological deficits. Normal speech. Assessment and Plan Problem List: (1) Suicidal ideation ICD Code: R45.851 - Suicidal ideations (2) HTN (hypertension) ICD Code: I10 - Essential (primary) hypertension Status: Acute (3) ESRD (end stage renal disease) ICD Code: N18.6 - End stage renal disease Status: Chronic Assessment and Plan Mr. Cheema is a 51-year-old female with a history of ESRD, depression who was admitted to the hospital due to suicidal ideation as well as hyperkalemia. Patient was briefly managed on the medical floor. Patient received dialysis and hyperkalemia was corrected. Subsequently patient was admitted to psychiatry unit. - Suicidal ideations - Management per psychiatry. Patient is currently on Risperdal, Lexapro and trazodone. - ESRD on hemodialysis Wednesday - We'll consult Dr. Colin again to continue HD. - CBC, CMP in the AM. - Hypertension - Hyperlipidemia - Continue Lipitor 20 mg daily at bedtime, continue carvedilol 3.125 mg twice a day. - Gout - continue allopurinol 300 mg by mouth daily. DNR. Ablation. Thank you for the consult. We'll continue to follow this patient with you. Pierce Rubio DO Jun 17, 2017 5:53 pm
[2017-06-17 18:11] VITALS: BP 168/76; PULSE 80; RESP 16; TEMP 97.5; O2SAT 99
[2017-06-17] MEDS: traZODone HCL 100 MG TAB PO SCH (20:55)
[2017-06-17] MEDS: ATORVASTATIN 20 MG TAB PO SCH (20:55)
[2017-06-17] MEDS ORDERED: SODIUM CHLOR 0.9% 1000 ML INJ 1,000 ML IV PRN (21:46)
[2017-06-17] MEDS ORDERED: SODIUM CHLOR 0.9% 1000 ML INJ 1,000 ML OTHER PRN ×2 (21:46)
--- NOTE | 2017-06-17 21:46 | HHI.NPPN ---
Subjective General Problems: Anemia, Hypertension Renal Failure: End Stage Renal Disease History of Present Illness 51-year-old female with past medical history of hypertension, chronic anemia, end-stage renal disease on hemodialysis three times per week, history of COPD, depression, [id number] female with past medical history of hypertension, chronic anemia, end-stage renal disease on hemodialysis three times per week, history of COPD, depression, hyperlipidemia was brought to the hospital after she was [facility] acted. I was called to see the patient because of management of hemodialysis. Additional Remarks Patient is sleepy and arousable, no SOB, eating better, not in distress. Objective Data Data 06/17/17 06/18/17 18:59 06:59 Intake Total 240 ml Balance 240 ml Intake Oral 240 ml Vital Signs Date Time Temp Pulse Resp B/P (MAP) Pulse Ox O2 Delivery O2 Flow Rate FiO2 06/17/17 18:11 97.5 80 16 168/76 (106) 99 06/17/17 15:49 96 Nasal Cannula 2.00 06/17/17 08:03 91 18 157/69 (98) 90 06/17/17 05:48 98.6 85 17 119/60 (79) 89 Physical Exam General Appearance: No Acute Distress, Comfortable Eyes Eye Exam: Pupils Equal Throat Throat Exam: Oral Mucosa [place] & Moist Neck Neck Exam: Neck Supple Pulmonary Resp Exam: Breath Sounds Equal, No Distress, Rhonchi, Decreased Bases Cardiology CV Exam: Regular, Normal Sinus Rhythm Gastrointestinal/Abdomen GI Exam: Soft, Non-Tender, Bowel Sounds Present Extremeties Extremities Exam: Trace Edema Neurologic Neuro Exam: Alert, Awake, Oriented Psychiatric Psych Exam: Appropriate Responses Assessment/Plan Assessment Summary: Hypertension, End Stage Renal Disease Problem List: (1) Anemia ICD Codes: D64.9 - Anemia, unspecified Status: Acute (2) Hypertension ICD Codes: I10 - Essential (primary) hypertension Status: Chronic (3) Diastolic CHF, acute ICD Codes: I50.31 - Acute diastolic (congestive) heart failure Status: Acute (4) Bipolar disorder ICD Codes: F31.9 - Bipolar disorder, unspecified Status: Chronic (5) HTN (hypertension) ICD Codes: I10 - Essential (primary) hypertension Status: Acute (6) Suicidal ideation ICD Codes: R45.851 - Suicidal ideations (7) ESRD (end stage renal disease) ICD Codes: N18.6 - End stage renal disease Status: Chronic Plan Patient has been on HD, MWF. BP is stable, has suicidal ideation and now in Psych unit. HD will be in AM. Epogen for anemia. Jessica Colin MD Jun 17, 2017 21:46
[2017-06-17] MEDS ORDERED: cloNIDine HCL 0.1 MG TAB PO PRN (22:00)
[2017-06-17] MEDS ORDERED: EPOETIN ALFA 10,000 UNITS/ML VIAL IV PUSH PRN (22:00)
[2017-06-17] MEDS ORDERED: MANNITOL 12.5 GM/50 ML VIAL IV PRN (22:00)
[2017-06-17] MEDS ORDERED: HEPARIN SODIUM - IV 10,000 UNITS/10 ML VIAL PRN (22:00)
[2017-06-17] MEDS ORDERED: GENTAMICIN SULFATE (DIALYSIS USE ONLY) 20 MG/2 ML VIAL OTHER PRN (22:00)
[2017-06-17] MEDS ORDERED: GELATIN 12 MM/7 MM FOAM TOP PRN (22:00)
[2017-06-17] MEDS ORDERED: ACETAMINOPHEN 325 MG TAB PO PRN (22:00)
[2017-06-17] MEDS ORDERED: SODIUM CHLORIDE 0.9% FLUSH 10 ML FLUSH IV FLUSH PRN (22:00)
[2017-06-17] MEDS ORDERED: HEPARIN SODIUM - IV 10,000 UNITS/10 ML VIAL IV FLUSH PRN (22:00)
[2017-06-17] MEDS ORDERED: ALBUMIN 25% INJ 100 ML IV PRN (22:00)
[2017-06-17] MEDS ORDERED: ONDANSETRON HCL 4 MG/2 ML VIAL IV PUSH PRN (22:00)
[2017-06-17] MEDS ORDERED: NITROGLYCERIN 0.4 MG SL 25 TABS/BTL SL PRN (22:00)
[2017-06-17] MEDS ORDERED: diphenhydrAMINE HCL 25 MG CAP PO PRN (22:00)
[2017-06-17 22:26] VITALS: O2SAT 98
[2017-06-18] MEDS: RESP: ALBUTEROL 2.5 MG/3 ML NEB (SCH) INH ×3 (03:52→16:00)
[2017-06-18 06:02] VITALS: BP 108/53; PULSE 65; RESP 18; TEMP 97.7; O2SAT 100
[2017-06-18] MEDS: GABAPENTIN 100 MG CAP PO SCH (08:09)
[2017-06-18] MEDS: METOCLOPRAMIDE HCL 10 MG TAB PO SCH ×3 (08:09→14:36)
[2017-06-18] MEDS: ALLOPURINOL 300 MG TAB PO SCH (08:09)
[2017-06-18] MEDS: CINACALCET HYDROCHLORIDE 30 MG TAB PO SCH (08:09)
[2017-06-18] MEDS: VITAMIN B CMPLX/VITC/FOLIC AC CAP PO SCH (08:09)
[2017-06-18] MEDS: CARVEDILOL 3.125 MG TAB PO SCH (08:09)
[2017-06-18] MEDS: SEVELAMER CARBONATE 800 MG TAB PO SCH ×2 (08:09→11:31)
[2017-06-18] MEDS: DOCUSATE SODIUM 50 MG/SENNA 8.6 MG TAB PO SCH (08:09)
[2017-06-18] MEDS: ASCORBIC ACID 500 MG TAB PO SCH (08:09)
[2017-06-18] MEDS: ESCITALOPRAM OXALATE 20 MG TAB PO SCH (08:09)
[2017-06-18 08:41] LABS: AUTOMATED NEUTROPHIL # 2.8 TH/MM3 (1.8-7.7); BASOPHIL % 0.7 % (0.0-2.0); EOSINOPHIL # 0.2 TH/MM3 (0-0.4); EOSINOPHIL % 4.3 % (0.0-4.0); HEMATOCRIT 30.6 % (35.0-46.0); HEMO FLAGS DIFF FINAL; LYMPH % 19.4 % (9.0-44.0); LYMPHOCYTE # 0.8 TH/MM3 (1.0-4.8); MEAN CELL VOLUME 101.1 FL (80.0-100.0); MEAN CORPUSCULAR HEMOGLOBIN 33.2 PG (27.0-34.0); MEAN CORPUSCULAR HGB CONC 32.8 % (32.0-36.0); MONO % 6.4 % (0.0-8.0); NEUT % 69.2 % (16.0-70.0); PLATELET COUNT 118 TH/MM3 (150-450); RED BLOOD COUNT 3.03 MIL/MM3 (4.00-5.30); RED CELL DISTRIBUTION WIDTH 18.9 % (11.6-17.2)
[2017-06-18 09:05] LABS: ANION GAP 11 MEQ/L (5-15); AST (GOT) 28 U/L (15-37); BICARBONATE 27.8 MEQ/L (21.0-32.0); BLOOD UREA NITROGEN 56 MG/DL (7-18); CHLORIDE 91 MEQ/L (98-107); GLOMERULAR FILTRATION RATE 7 ML/MIN (>89); POTASSIUM 4.6 MEQ/L (3.5-5.1); SODIUM (NA) 130 MEQ/L (136-145)
[2017-06-18 09:06] LABS: ALT (GPT) 37 U/L (10-53)
[2017-06-18 09:09] LABS: ALKALINE PHOSPHATASE 282 U/L (45-117); TOTAL BILIRUBIN ADULT 0.5 MG/DL (0.2-1.0)
[2017-06-18] MEDS ORDERED: TRAZ100T10 PO (12:08)
[2017-06-18] MEDS ORDERED: ESCI20TA PO (12:08)
[2017-06-18] MEDS ORDERED: RISP3 PO (12:08)
--- NOTE | 2017-06-18 12:14 | HHI.DS ---
Psychiatry Discharge Summary Inpatient Psychiatric care?: Yes Advance Directive: Yes Mental Health AdvanceDirective: No Health Care Proxy: No Admission Admission Date Jun 16, 2017 at 21:00 Admission Diagnosis: (1) Bipolar 1 disorder, depressed ICD Code: F31.9 - Bipolar disorder, unspecified Brief History From Dr. Castillo's consult note: The patient is a 51 year-old woman, domiciled in a intermediate, recently from her , unemployed, supported by [facility], with psychiatric history bipolar disorder, multiple psychiatric hospitalizations, last hospitalization was here at [facility] in March 2017, she was discharged Risperdal 2 mg at bedtime escitalopram 20 mg, [id number] mg at bedtime, previous suicidal attempts, medical history of chronic kidney disease on dialysis presents to the emergency room under Delatorre act for evaluation of suicidal ideation. On initial evaluation her potassium was 6.4. She was hospitalized for electrolyte correction. On psychiatric evaluation patient is distant, superficially cooperative. Patient states she has had increasing suicidal thoughts over the past several weeks now since she from her . "But the truth is that I am just depressed for no reason". She has no specific reason for being suicidal or any plan" but I feel I want to ". She denies any medical complaints at this time. Denies drug or alcohol use. She last had dialysis this morning. Patient makes urine several times per day. Patient has history of bipolar disorder but she has been taking her medications and she was responding find until about 2 weeks ago. The patient is fully oriented 3, no fluctuation of consciousness, no attention deficit, running in paranoia, delusions, agitation or aggressive behavior. On my examination today: Patient seen and examined with nurse. Chart reviewed. Patient was brought to ED from her facility under [facility]re Act for suicidal ideation. She was medically admitted for hyperkalemia and seen in consultation by Dr. Castillo, and I have reviewed his notes. Of note, patient was on supplemental oxygen on medical floor but was transferred overnight by on-call MD to high-acuity unit where supplemental oxygen is not utilized due to safety concerns. Patient is hypoxemic this morning, and I have ordered her placed back on supplemental oxygen and notified the charge nurse to transfer the patient to the Medical Psychiatric unit where supplemental oxygen can be used LILLIE. Case discussed with nursing staff. On my exam today, patient says "I wanna go home, go back to where I was." She does admit to suicidal ideation prior to admission but says "they were just thoughts." She says that she was contemplating "taking a string and tying it to a doorknob and choking myself." She denies any suicidal ideation, intent or plan now and contracts for safety. She denies any urge to hurt herself on the inpatient unit. Mood at time of initial presentation was reportedly depressed but is now "good." She endorses some chronic, non- deprecatory, non-command auditory hallucinations that are "pretty cool, funny." She has experienced command auditory hallucinations in the past but denies these now. No other hallucinatory material. No delusions. No hypomanic or manic symptoms. Reports she has been adherent with psychotropics and is tolerating these well but finds them a little sedating. She does take Risperdal during the day but is open to moving it to HS to lessen daytime sedation. No physical complaints besides some mild dyspnea associated with hypoxemia. She reports a history of suicide attempt by OD in the past. Tobacco Use In Past 30 Days: No Tobacco Past 30 Days Alcohol Use: Never Hospital Course The patient is a 51 year-old woman, domiciled in a intermediate, recently from her , unemployed, supported by [facility], with psychiatric history bipolar disorder, multiple psychiatric hospitalizations, last hospitalization was here at [facility] in March 2017, she was discharged Risperdal 2 mg at bedtime escitalopram 20 mg, [id number] mg at bedtime, previous suicidal attempts, medical history of chronic kidney disease on dialysis presents to the emergency room under Delatorre act for evaluation of suicidal ideation and was transferred to the inpatient psychiatry unit for further evaluation and management. Patient was started continued on risperidone 3mg PO but changed to bedtime, escitalopram 20mg PO daily and trazodone increased to 100mg PO HS which she tolerated well. Patient continue with treatment and was noted to have improvement of mood, was noted to be more optimistic, calm and cooperative with staff. Patient was noted to have had resolution of low mood and suicidal ideation and reported wanting to live for herself because she is special and beautiful and loved by family and friends. Patient was adherent to medication regimen and recommendations as per primary medical team which she received dialysis prior to discharge. Upon discharge patient stated feeling good, stated feeling okay with returning back to her residence, was calm and cooperative with staff. She agreed to continuing medical recommendations, treatment and attend outpatient follow up appointments for continuity of care. Patient will be discharged back to her residence. Patient; denies SI, HI, AVH or delusions. Supportive psychotherapy provided. Patient advised to call 911 or return back to the ED in case of any emergency. Patient agrees with plan. Results Blood Pressure 108 / 53 Vital Signs Date Time Temp Pulse Resp B/P (MAP) Pulse Ox O2 Delivery O2 Flow Rate FiO2 06/18/17 06:02 97.7 65 18 108/53 (71) 100 06/17/17 22:26 Nasal Cannula 2.00 Laboratory Tests Test 06/18/17 08:03 Red Blood Count 3.03 MIL/MM3 (4.00-5.30) Hemoglobin 10.0 GM/DL (11.6-15.3) Hematocrit 30.6 % (35.0-46.0) Mean Corpuscular Volume 101.1 FL (80.0-100.0) Red Cell Distribution Width 18.9 % (11.6-17.2) Platelet Count 118 TH/MM3 (150-450) Eosinophils (%) (Auto) 4.3 % (0.0-4.0) Lymphocytes # (Auto) 0.8 TH/MM3 (1.0-4.8) Blood Urea Nitrogen 56 MG/DL (7-18) Creatinine 6.19 MG/DL (0.50-1.00) Random Glucose 121 MG/DL (74-106) Alkaline Phosphatase 282 U/L (45-117) Sodium Level 130 MEQ/L (136-145) Chloride Level 91 MEQ/L (98-107) Estimat Glomerular Filtration Rate 7 ML/MIN (>89) Summary of Procedures None Pending results at discharge: No Medications # of Antipsychotic meds at D/C: 1 Approp Antipsych med options 1 - Minimum of three failed multiple trials of monotherapy. 2 - Documented plan to taper to monotherapy due to previous use of multiple meds OR cross-taper in progress at D/C. 3 - Documentation of augmentation of Clozapine. 4 - Justification other than those listed in allowable values 1-3, document here : Discharge Discharge Date: Jun 18, 2017 Discharge Diagnosis: (1) Bipolar 1 disorder, depressed ICD Code: F31.9 - Bipolar disorder, unspecified Status: Chronic Pt Condition on Discharge: Stable Discharge Disposition: Discharge to SNF Discharge Instructions Diet Instructions: Renal Failure Diet Activities you can perform: Weight Bearing as Mamie Scheduled Appointment: [facility] Appointment Date: Jun 19, 2017 Appointment Time: 08:30am Discharge Time > 30 minutes Mental Status Examination Appearance: Appropriate Consciousness: Alert Orientation: x4 (no evidence of delirium) Motor Activity: Other (no motor abnormalities noted) Speech: Unremarkable Language: Adequate Fund of Knowledge: Adequate Attention and Concentration: Adequate Memory: Unremarkable Mood: Good Affect: Appropriate Thought Process & Associations: Logical, Goal directed, Linear Thought Content: Appropriate Hallucination Type: None Delusion Type: None Suicidal Ideation: No Suicidal Plan: No Suicidal Intention: No Homicidal Ideation: No Homicidal Plan: No Homicidal Intention: No Insight: Fair Judgment: Impulsive Discharge/Advance Care Plan Health Problems: (1) Bipolar 1 disorder, depressed Goals to promote your health * To prevent worsening of your condition and complications * To maintain your health at the optimal level Directions to meet your goals Take your medications as prescribed Follow your dietary instruction Follow activity as directed Keep your appointments as scheduled Take your immunizations and boosters as scheduled If your symptoms worsen call your PCP, if no PCP go to Urgent Care Center or Emergency Room For 24/7 questions related to your inpatient stay or results of tests pending at discharge, please contact Dr. Shilo Armstrong at Smoking is Dangerous to Your Health. Avoid second hand smoking Shilo Armstrong MD Jun 18, 2017 12:14
--- NOTE | 2017-06-18 13:28 | HHI.PR ---
Subjective Remarks Follow-up for ESRD, hypertension, hyperlipidemia. Patient is currently doing well. No acute concerns. No fever or chills. Objective Vitals Vital Signs Date Time Temp Pulse Resp B/P (MAP) Pulse Ox O2 Delivery O2 Flow Rate FiO2 06/18/17 06:02 97.7 65 18 108/53 (71) 100 06/17/17 22:26 98 Nasal Cannula 2.00 06/17/17 18:11 97.5 80 16 168/76 (106) 99 06/17/17 15:49 96 Nasal Cannula 2.00 I/O 06/17/17 06/17/17 06/17/17 06/18/17 06/18/17 06/18/17 07:00 15:00 23:00 07:00 15:00 23:00 Intake Total 240 ml 240 ml Balance 240 ml 240 ml Intake Oral 240 ml 240 ml Result Diagram: 06/18/1780206/18/17 0803 Objective Remarks GENERAL: Alert, NAD. SKIN: Warm and dry. HEAD: Normocephalic. EYES: No scleral icterus. No injection or drainage. NECK: Supple, trachea midline. No JVD or lymphadenopathy. CARDIOVASCULAR: Regular rate and rhythm without murmurs, gallops, or rubs. RESPIRATORY: Breath sounds equal bilaterally. No accessory muscle use. GASTROINTESTINAL: Abdomen soft, non-tender, nondistended. MUSCULOSKELETAL: No cyanosis, or edema. BACK: Nontender without obvious deformity. No CVA tenderness. A/P Problem List: (1) Suicidal ideation ICD Code: R45.851 - Suicidal ideations (2) HTN (hypertension) ICD Code: I10 - Essential (primary) hypertension Status: Acute (3) ESRD (end stage renal disease) ICD Code: N18.6 - End stage renal disease Status: Chronic Assessment and Plan Mr. Cheema is a 51-year-old female with a history of ESRD, depression who was admitted to the hospital due to suicidal ideation as well as hyperkalemia. Patient was briefly managed on the medical floor. Patient received dialysis and hyperkalemia was corrected. Subsequently patient was admitted to psychiatry unit. - Suicidal ideations - Management per psychiatry. Patient is currently on Risperdal, Lexapro and trazodone. - ESRD on hemodialysis Wednesday - Dr. Jumani following. - Na 130, K 4.6. - Hypertension - Hyperlipidemia - Continue Lipitor 20 mg daily at bedtime, continue carvedilol 3.125 mg twice a day. - Gout - continue allopurinol 300 mg by mouth daily. DNR. ambulation. Pierce Rubio DO Jun 18, 2017 1:28 pm
[2017-06-18 18:19] VITALS: BP 108/53; PULSE 65; RESP 18; TEMP 97.7; O2SAT 100
--- NOTE | 2017-06-18 21:44 | HHI.NPPN ---
Subjective General Problems: Anemia, Hypertension Renal Failure: End Stage Renal Disease History of Present Illness 51-year-old female with past medical history of hypertension, chronic anemia, end-stage renal disease on hemodialysis three times per week, history of COPD, depression, [id number] female with past medical history of hypertension, chronic anemia, end-stage renal disease on hemodialysis three times per week, history of COPD, depression, hyperlipidemia was brought to the hospital after she was [facility]re acted. I was called to see the patient because of management of hemodialysis. Additional Remarks Patient is alert, was seen in the afternoon during HD,no SOB. Objective Data Data 06/18/17 06/19/17 19:00 07:00 Intake Total 720 ml Output Total 3500 ml Balance -2780 ml Intake Oral 720 ml Output Hemodialysis 3500 ml Vital Signs Date Time Temp Pulse Resp B/P (MAP) Pulse Ox O2 Delivery O2 Flow Rate FiO2 06/18/17 18:19 97.7 65 18 108/53 (71) 100 06/18/17 08:10 Nasal Cannula 2.50 06/18/17 06:02 97.7 65 18 108/53 (71) 100 06/17/17 22:26 98 Nasal Cannula 2.00 -: 06/18/17 0803 06/18/17 0803 Physical Exam General Appearance: No Acute Distress, Comfortable Eyes Eye Exam: Pupils Equal Throat Throat Exam: Oral Mucosa Posey & Moist Neck Neck Exam: Neck Supple Pulmonary Resp Exam: Breath Sounds Equal, No Distress, Rhonchi, Decreased Bases Cardiology CV Exam: Regular, Normal Sinus Rhythm Gastrointestinal/Abdomen GI Exam: Soft, Non-Tender, Bowel Sounds Present Extremeties Extremities Exam: Trace Edema Neurologic Neuro Exam: Alert, Awake, Oriented Psychiatric Psych Exam: Appropriate Responses Assessment/Plan Assessment Summary: Hypertension, End Stage Renal Disease Problem List: (1) Anemia ICD Codes: D64.9 - Anemia, unspecified Status: Acute (2) Hypertension ICD Codes: I10 - Essential (primary) hypertension Status: Chronic (3) Diastolic CHF, acute ICD Codes: I50.31 - Acute diastolic (congestive) heart failure Status: Acute (4) Bipolar disorder ICD Codes: F31.9 - Bipolar disorder, unspecified Status: Chronic (5) HTN (hypertension) ICD Codes: I10 - Essential (primary) hypertension Status: Acute (6) Suicidal ideation ICD Codes: R45.851 - Suicidal ideations (7) ESRD (end stage renal disease) ICD Codes: N18.6 - End stage renal disease Status: Chronic Plan Patient has been on HD, MWF. BP is stable, has suicidal ideation and now in Psych unit. HD now, remove fluid as tolerated. Epogen for anemia. Possible D/C, to follow with Jessica Mason Mai., MD Jun 18, 2017 21:44
[2017-06-19] MEDS ORDERED: ALLOPURINOL 100 MG TAB PO SCH (09:00)
== END 2017-06-18 18:15 | DRG 885 ==
LOC: H270 21:00 → H4EA 06-17 11:35
PROVIDERS: ADMIT Student in an Organized Health Care Education/Training Program; ATTEND Student in an Organized Health Care Education/Training Program
PROC: 5A1D70Z Performance of Urinary Filtration, Intermittent, Less than 6 Hours Per Day (ICD-10-PCS; principal; 2017-06-18)
DX: F31.30 Bipolar disorder, current episode depressed, mild or moderate severity, unspecified (principal); I13.2 Hypertensive heart and chronic kidney disease with heart failure and with stage 5 chronic kidney disease, or end stage renal disease; N18.6 End stage renal disease; R45.851 Suicidal ideations; Z99.81 Dependence on supplemental oxygen; R44.0 Auditory hallucinations; I50.30 Unspecified diastolic (congestive) heart failure; R09.02 Hypoxemia; J44.9 Chronic obstructive pulmonary disease, unspecified; M10.9 Gout, unspecified; E78.5 Hyperlipidemia, unspecified; D63.1 Anemia in chronic kidney disease; F17.210 Nicotine dependence, cigarettes, uncomplicated; Z66 Do not resuscitate; Z91.5 Personal history of self-harm; Z99.2 Dependence on renal dialysis
CPT/HCPCS: 80053; 85025; 90935; 96374; J7030; Q4081

== ENCOUNTER 2017-12-07 06:45 | Day surgery (SDC) | payer MEDICARE, OTHER ==
[~2017-12-07] VITALS: Ht 142.2 cm; Wt 63.6 kg
[~2017-12-07 06:45] MED LIST changes: -AMLO10 PO; -DOXY100C PO; +ESCI20TA PO; -FIBE625T PO; -GENT0.1O2 TOPICAL; -LEXA10TA PO; -POLY17S PO; +TRAZ100T10 PO; -TRAZ50TA12 PO; -ZINC220T PO
[2017-12-07] MEDS ORDERED: LIDOCAINE HCL 2% PF 2 ML VIAL OTHER ONE (06:46)
[2017-12-07 07:26] VITALS: BP 182/75; PULSE 75; RESP 18; TEMP 98; O2SAT 92
[2017-12-07] MEDS ORDERED: POVIDONE IODINE 5% (ANTISEPSIS KIT) 4 APPLICATIONS EACH NARE PRN (07:30)
[2017-12-07] MEDS ORDERED: LACTATED RINGER'S 1000 ML IV PRN (07:30)
[2017-12-07] MEDS ORDERED: CHLORHEXIDINE GLUCONATE 2 % 1 PACK (2 CLOTHS) TOPICAL PRN (07:30)
[2017-12-07] MEDS ORDERED: METOPROLOL TARTRATE 25 MG TAB PO PRN (07:30)
[2017-12-07] MEDS ORDERED: SODIUM CHLORID 0.9% 500 ML IV PRN (07:30)
[2017-12-07] MEDS ORDERED: IPRA0.02 NEB (08:23)
[2017-12-07] MEDS ORDERED: CLAR10CA3 PO (08:23)
[2017-12-07] MEDS ORDERED: GUAI600T11 PO (08:23)
[2017-12-07] MEDS ORDERED: IMIP1INJ IV (08:23)
[2017-12-07] MEDS ORDERED: FLUT1INH INH (08:23)
[2017-12-07] MEDS ORDERED: LACTTAB8 PO (08:23)
[2017-12-07] MEDS ORDERED: NORC5TAB PO (08:23)
[2017-12-07 08:59] LABS: INTERNATIONAL NORMALIZED RATIO 1.1 RATIO; PROTHROMBIN TIME - PATIENT 10.7 SEC (9.8-11.6)
[2017-12-07 09:02] LABS: BICARBONATE 28.2 MEQ/L (21.0-32.0); CALCIUM 10.6 MG/DL (8.5-10.1); CREATININE 5.36 MG/DL (0.50-1.00)
[2017-12-07] MEDS ORDERED: RESP: LIDOCAINE HCL 4% PF 5 ML NEB ONE ×2 (09:12→10:40)
[2017-12-07] MEDS ORDERED: RESP: ALBUTEROL CONC 2.5 MG/0.5 ML NEB ONE ×2 (09:12→10:40)
[2017-12-07 09:45] VITALS: BP 148/76; PULSE 85; RESP 18; TEMP 98.3; O2SAT 94
[2017-12-07 09:48] LABS: AUTOMATED NEUTROPHIL # 4.4 TH/MM3 (1.8-7.7); BASOPHIL % 0.6 % (0.0-2.0); EOSINOPHIL # 0.2 TH/MM3 (0-0.4); HEMATOCRIT 36.5 % (35.0-46.0); HEMOGLOBIN 11.7 GM/DL (11.6-15.3); LYMPHOCYTE # 0.7 TH/MM3 (1.0-4.8); MEAN CELL VOLUME 100.1 FL (80.0-100.0); MEAN CORPUSCULAR HEMOGLOBIN 32.2 PG (27.0-34.0); MEAN CORPUSCULAR HGB CONC 32.2 % (32.0-36.0); MEAN PLATELET VOLUME 8.3 FL (7.0-11.0); MONO % 7.9 % (0.0-8.0); MONOCYTE # 0.5 TH/MM3 (0-0.9); NEUT % 75.5 % (16.0-70.0); PLATELET COUNT 116 TH/MM3 (150-450); RED BLOOD COUNT 3.65 MIL/MM3 (4.00-5.30); WHITE BLOOD COUNT 5.8 TH/MM3 (4.0-11.0)
[2017-12-07 10:40] VITALS: BP_SYST 153; BP_DIAS 63; BP_DIAS 65; PULSE 80; RESP 18; TEMP 98; O2SAT 93
[2017-12-07 11:10] VITALS: BP 137/57; PULSE 80; RESP 18; O2SAT 98
[2017-12-07] MEDS ORDERED: DO NOT ADM ANY ANTICOAGULANT DRUGS PRN (11:15)
[2017-12-07 11:40] VITALS: BP 142/60; PULSE 82; RESP 18; O2SAT 98
--- NOTE | 2017-12-07 19:04 | MP ---
cc: Barbara Jimenez MD, [place] W MD DATE OF OPERATION: 12/07/2017 PROCEDURE: Fiberoptic bronchoscopy, flexible. REASON FOR BRONCHOSCOPY: Left upper lung lobe mass, rule out underlying malignancy. PROCEDURE IN DETAIL: Fiberoptic bronchoscopy performed via LMA. Vocal cords appeared intact. The trachea was moderately hyperemic. Thick mucoid secretions throughout the tracheobronchial tree noted and removed. Right upper, middle, and lower lobe, left upper and lower lobes inspected. No endobronchial obstruction or mass lesion seen. Widening of the secondary satish is noted. No mass lesion within the left upper or lower lobes noted. Washings and brush biopsies left upper lobe obtained for routine TB, fungal cultures as well as cytologic exam. Procedure well tolerated. The patient was transferred to the recovery room in stable condition. IMPRESSION: 1. Moderate tracheobronchitis. 2. Excess mucoid secretions. 3. No endobronchial obstruction or mass lesion. 4. Samples obtained as above. 5. The patient was transferred to the recovery room in stable condition. Barbara Jimenez MD WWW/ , 06:42 PM , 07:03 PM
== END 2017-12-07 11:50 | disposition home or self-care (01) ==
LOC: HROP 06:45 → HRIP 06:50 → HROP 11:50
PROVIDERS: ATTEND Internal Medicine Sleep Medicine
DX: R91.8 Other nonspecific abnormal finding of lung field (principal); J40 Bronchitis, not specified as acute or chronic; J44.9 Chronic obstructive pulmonary disease, unspecified; I50.9 Heart failure, unspecified; N18.6 End stage renal disease; I13.2 Hypertensive heart and chronic kidney disease with heart failure and with stage 5 chronic kidney disease, or end stage renal disease; Z99.2 Dependence on renal dialysis
CPT/HCPCS: 00520; 31625; 80048; 85025; 85610; 85730; 87015; 87070; 87077; 87102; 87116; 87205; 87206; 88112; 88305; 94664; J7611